=== PATIENT | female | born 1995 | race Caucasian/White ===

== ENCOUNTER 2024-02-28 19:07 | Outpatient (REF) | payer MEDICAID, SELFPAY ==
[2024-02-28 18:07] LABS: Abs Immature Grans 0.04 10^3/uL (0.0-0.06); Absolute Basophil Count 0.02 10^3/uL (0.0-0.2); Absolute Lymphocyte Count 2.29 10^3/uL (1.2-3.4); Absolute Neutrophil Count 5.12 10^3/uL (1.2-6.7); Basophils % 0.2 %; Eosinophils % 8.1 %; HCT 35.3 % (36.0-46.0); HGB 11.4 g/dL (11.2-15.7); Immature Grans % 0.5 %; Lymphocytes % 26.4 %; MCH 29.2 pg (27.0-33.0); MCHC 32.3 % (32.0-36.0); MCV 91 fL (80-95); MPV 11.2 fL (8.0-11.0); Monocytes % 5.8 %; Platelet Count 273 10^3/uL (130-400); RDW 15.1 % (11.7-14.6); WBC 8.67 10^3/uL (4.4-10.8)
--- OUTSIDE RECORDS SUMMARY | 2024-02-29 19:08 | XMS_ITS | Continuity of Care Document ---
Author Name Unknown Organization [facility] Address [address] [place] [address] Care Team Providers Care Detective Captain Name Role Phone Jamila Archer Primary Care Physician Encounter [facility] [id number] Date(s): 12/10/23 - 12/10/23 [place] [facility] [address] [place] [address] Discharge Disposition: Home Allergies, Adverse Reactions, Alerts Substance Reaction Severity Status morphine Unknown Active oxyCODONE 1 Unknown Active rOPINIRole Severe Active 1repotrs feeling loopy Assessment and Plan Future Appointments Appointment Date:12/18/2023 03:30:00 PM Scheduled Provider:Shila Krueger Location:[facility] Appointment Type:Care Coordination Follow-Up 45 [facility] Future Scheduled Tests Laboratory* Basic Metabolic Panel 05/29/23 * CBC w/ Diff 05/01/23 * Comprehensive Metabolic Panel 08/16/23 * Uric Acid 08/16/23 Radiology* XR Chest 2 Views 10/31/23 * XR Spine Lumbosacral 4+ Views 02/27/23 Immunizations Given and Recorded Vaccine Date Status Refusal Reason pneumococcal 15-valent conjugate vaccine 12/08/21 Recorded SARS-CoV-2 (COVID-19) mRNA-1273 vaccine 11/19/20 R ecorded SARS-CoV-2 (COVID-19) mRNA-1273 vaccine 10/22/20 R ecorded influenza virus vaccine, live 06/17/20 Recorded influenza virus vaccine, live 06/13/19 Recorded influenza virus vaccine, live 06/18/18 Recorded tetanus-diphth toxoids (Td) adult/adol 1 03/23/20 Recorded influenza, unspecified formulation 08/08/16 Record ed influenza virus vaccine, inactivated 06/30/15 Gabriel rded influenza virus vaccine, inactivated 06/10/14 Gabriel rded influenza virus vaccine, inactivated 06/16/13 Gabriel rded influenza virus vaccine, inactivated 07/04/12 Gabriel rded influenza virus vaccine, inactivated 06/13/11 Gabriel rded influenza virus vaccine, inactivated 08/26/10 Gabriel rded influenza virus vaccine, inactivated 07/13/09 Gabriel rded influenza virus vaccine, inactivated 07/23/08 Gabriel rded influenza virus vaccine, inactivated 08/08/06 Gabriel rded meningococcal ACWY, unspecified formulat 10/19/14 Recorded HPV, unspecified formulation 11/01/10 Recorded HPV, unspecified formulation 01/25/09 Recorded HPV, unspecified formulation 09/24/08 Recorded HPV, unspecified formulation 07/23/08 Recorded varicella virus vaccine 07/23/08 Recorded varicella virus vaccine 08/30/00 Recorded meningococcal conjugate vaccine 07/23/08 Recorded tetanus/diphth/pertuss (Tdap) adult/adol 07/23/08 Recorded diphtheria/pertussis, acellular/tetanus 04/21/02 R ecorded diphtheria/pertussis, acellular/tetanus 08/26/98 R ecorded diphtheria/pertussis, acellular/tetanus 97 R ecorded diphtheria/pertussis, acellular/tetanus 97 R ecorded diphtheria/pertussis, acellular/tetanus 97 R ecorded poliovirus vaccine, inactivated 04/21/02 Recorded poliovirus vaccine, inactivated 08/26/98 Recorded poliovirus vaccine, inactivated 97 Recorded poliovirus vaccine, inactivated 97 Recorded poliovirus vaccine, inactivated 97 Recorded measles/mumps/rubella virus vaccine 11/28/00 Recor ded measles/mumps/rubella virus vaccine 02/26/98 Recor ded haemophilus b conjugate (HbOC) vaccine 08/26/98 Re corded haemophilus b conjugate (HbOC) vaccine 97 Re corded haemophilus b conjugate (HbOC) vaccine 97 Re corded haemophilus b conjugate (HbOC) vaccine 97 Re corded hepatitis B pediatric vaccine 97 Recorded hepatitis B pediatric vaccine 97 Recorded hepatitis B pediatric vaccine 97 Recorded 1Result Comment: pt tolerated well Medications albuterol 90 mcg/inh aerosol inhaler 1 puffs, Inhale, every 6 hr, PRN as needed for wheezing, # 8.5 g, 3 Refill(s), Pharmacy: [facility] [id number], 149, cm, 11/02/23 8:54:00 EST, Height, 137.5, kg, 10/31/23 23:35:00 EST, Weight Dosing Start Date: 11/07/23 Status: Ordered allopurinol 100 mg oral tablet 100 mg = 1 tab, Oral, Daily, # 90 tab, 0 Refill(s), Pharmacy: [facility] [id number], 149, cm, 10/13/23 16:49:00 EST, Height, 137.15, kg, 10/23/23 9:18:00 EST, Weight Dosing Start Date: 10/23/23 Status: Ordered aspirin 81 mg oral capsule 81 mg = 1 cap, Oral, every 24 hr, # 90 cap, 4 Refill(s), Pharmacy: [facility] [address], 149.86, cm, 11/27/23 8:07:00 EDT, Height, 136.08, kg, 11/27/23 8:15:00 EDT, Weight Dosing Start Date: 11/27/23 Status: Ordered atorvastatin 40 mg oral tablet 40 mg = 1 tab, Oral, Daily, # 90 tab, 3 Refill(s), Pharmacy: [facility] [address], 149, cm, 11/02/23 8:54:00 EST, Height, 137.5, kg, 10/31/23 23:35:00 EST, Weight Dosing Start Date: 11/07/23 Status: Ordered B-D UF III SHORT PEN NEED MIS B-D UF III SHORT PEN NEED MIS, Use one new pen needle for each insulin injection 5 to 7 times per day as directed in case of pump malfunction, Supply, See instructions, # 500 EA, 0 Refill(s), Pharmacy: [facility] [id number] Start Date: 09/08/22 Status: Ordered cetirizine 10 mg oral tablet 1 tab, Oral, BID, # 60 tab, 0 Refill(s), Pharmacy: [facility] [address], 149, cm, 07/08/23 18:54:00 EDT, Height/Length Dosing, 133.2, kg, 07/25/23 10:54:00 EST, Weight Dosing Start Date: 09/12/23 Status: Ordered Dexcom CGM- change q10 days Dexcom CGM- change q10 days, Supply, See instructions, # 1 EA, 0 Refill(s) Start Date: 10/31/23 Status: Ordered elderberry 350 mg, Oral, Daily, 0 Refill(s) Start Date: 07/08/23 Status: Ordered Glucagon Emergency Kit for Low Blood Sugar See Instructions, PRN low blood sugar, follow instructions per kit, 0 Refill(s) Start Date: 03/24/22 Status: Ordered HumaLOG KwikPen 100 units/mL injectable solution 40 units =, Subcutaneous, every morning, With breakfast if BG is 230 or higher, # 15 mL, 2 Refill(s), Pharmacy: [id number], 149, cm, 11/02/23 8:54:00 EST, Height, 137.5, kg, 10/31/23 23:35:00 EST, Weight Dosing Start Date: 11/07/23 Status: Ordered HumuLIN R KwikPen (Concentrated) 500 units/mL subcutaneous solution See Instructions, 230 units of humilin at breakfast 150 Units of humilin at lunch 100 Units of humilin at dinner, decrease dose and titrate as necessary as half dose of insulin was given in hospital and was still hypoglycemic Start Date: 03/02/22 Status: Ordered levothyroxine 250 mcg =, Oral, Daily, 0 Refill(s) Start Date: 07/08/23 Status: Ordered lisinopril 5 mg oral tablet 5 mg = 1 tab, Oral, every night at bedtime, # 90 tab, 0 Refill(s) Start Date: 10/15/23 Status: Ordered Mounjaro 2.5 mg/0.5 mL subcutaneous solution 2.5 mg =, Subcutaneous, every week, rotate injection sites, # 4 EA, 0 Refill(s), Pharmacy: [facility], 149, cm, 11/02/23 8:54:00 EST, Height, 137.5, kg, 10/31/23 23:35:00 EST, Weight Dosing Start Date: 11/07/23 Status: Ordered Mounjaro 2.5 mg/0.5 mL subcutaneous solution 2.5 mg =, Subcutaneous, every week, rotate injection sites, # 4 EA, 0 Refill(s), Pharmacy: [id number], 149, cm, 10/13/23 16:49:00 EST, Height, 133, kg, 10/13/23 16:54:00 EST, Weight Dosing Start Date: 10/15/23 Status: Ordered ONETOUCH VERIO FLEX KIT ONETOUCH VERIO FLEX KIT, [address] [facility]. (non drug: combo route) route 4 times daily. Start Date: 03/02/22 Status: Ordered ONETOUCH VERIO MARLENE ONETOUCH VERIO MARLENE, Test blood glucose withone new test strip 4 times daily Start Date: 03/02/22 Status: Ordered Portable Back Pack O2 Tank Portable Back Pack O2 Tank, 2.5L pulse dose, Supply, See instructions, # 1 EA, 0 Refill(s) Start Date: 11/07/23 Status: Ordered Probiotic 10 Ultra Strength 0 Refill(s) Start Date: 11/27/23 Status: Ordered Tamiflu 75 mg oral capsule 75 mg = 1 cap, Oral, BID, # 6 cap, 0 Refill(s), Pharmacy: [id number], 149, cm, 11/02/23 8:54:00 EST, Height, 137.5, kg, 10/31/23 23:35:00 EST, Weight Dosing Start Date: 11/02/23 Stop Date: 11/05/23 Status: Ordered Toprol-XL 25 mg oral tablet, extended release 25 mg = 1 tab, Oral, Daily, # 90 tab, 4 Refill(s), Pharmacy: [facility], 149.86, cm, 11/27/23 8:07:00 EDT, Height, 136.08, kg, 11/27/23 8:15:00 EDT, Weight Dosing Start Date: 11/27/23 Status: Ordered torsemide 20 mg oral tablet 3 tab, Oral, BID, TWICE DAIY., # 180 tab, 3 Refill(s), Pharmacy: [id number], 149, cm, 07/08/23 18:54:00 EDT, Height/Length Dosing, 133.2, kg, 07/25/23 10:54:00 EST, Weight Dosing Start Date: 08/06/23 Status: Ordered Vitamin C 250 mg oral tablet 0 Refill(s) Start Date: 11/27/23 Status: Ordered [facility] Probiotic [facility] Probiotic, 1, Oral, Daily, 0 Refill(s) Start Date: 10/31/23 Status: Ordered Problem List Condition Confirmation Course Effective Dates Status H ealth Status Informant DEAN (acute kidney injury) Confirmed Active Aortic stenosis Confirmed Active Asthma Confirmed Active Autoimmune thyroiditis Confirmed Active Bilateral lower extremity edema Confirmed Active Clostridioides difficile 1 Confirmed 07/09/23 Active C. difficile colitis Confirmed Active C. difficile diarrhea Confirmed Active Constipation Confirmed Active Developmental disorder Confirmed Active Erythroderma Confirmed Active Gout Confirmed Active HLD (hyperlipidemia) Confirmed Active HTN (hypertension) Confirmed Active Hypothyroidism Confirmed Active 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 Intermenstrual bleeding - irregular Confirmed Active Irregular sleep-wake pattern Confirmed Active Localized edema Confirmed Active Mediastinal adenopathy Confirmed Active Morbid obesity Confirmed Active Obstructive sleep apnea syndrome 2 Confirmed Active HOLLIE treated with BiPAP Confirmed Active Palpitations Confirmed Active Periodic limb movement disorder Confirmed Active Peripheral edema Confirmed Active Pneumonia Confirmed Active Hospital discharge follow-up Confirmed Active Pulmonary hypertension Confirmed Active Tachycardia Confirmed Active Tension-type headache Confirmed Active Thyroid nodule Confirmed Active Type 1 diabetes Confirmed Active 1Problem added by Rule (LH_IC_MDRO_CDI) following Clostridium Difficile from Stool collected on 06-JUL-2023 17:48:00 EDT tested positive for CDI. 2BiPAP Imax 25 cm, Luis M 16 cm, PS 6 cm. [employer] Procedures Procedure Date Related Diagnosis Body Site Status Due 10/2025 1 10/30/22 Completed ORIF - Open reduction and in ternal fixation of fracture 2 12/21/20 Completed Adenoidectomy 3 09/09/13 Completed Tonsillectomy 4 09/09/03 Completed 1Pap Due - 10/2025 10/31/22 - Negative 2left elbow fracture dislocation 3as part of tonsillectomy 2003; repeat adenoidectomy 2013 4with adenoidectomy Social History Social History Type Response Tobacco Never tobacco user T obacco Use:. Sex Female Patient Care team information Care Team Personnel Name: Jamila Archer MD Position: Physician Member Role: Informed Provider Address: Address: [address] [place] [address] [place] [address] [place] Name: Shila Krueger Position: Ambulatory - RN/LEGAL SERVICES MANAGER ([facility]) Member Role: Artillery Meteorological Man Care Team Related Persons Name: BISHOP EMILIO Address: Home [address] [place], [phone] Name: ELLIS GRAMAJO Address: Home [address] [place], [phone]
--- OUTSIDE RECORDS SUMMARY | 2024-02-29 19:08 | XMS_ITS | Continuity of Care Document ---
Author Name Unknown Organization [facility] Address [address] [place] [address] Care Team Providers Care Road Machine Operator Name Role Phone Jamila Archer Primary Care Physician [phone] Encounter [id number] Date(s): 10/31/22 - 10/31/[address] [address] Discharge Disposition: Home or Self Care Attending Physician: Yuliya Villalobos CNM Admitting Physician: Yuliya Villalobos CNM Referring Physician: Yuliya Villalobos CNM Allergies, Adverse Reactions, Alerts Substance Reaction Severity Status morphine Unknown Active rOPINIRole Severe Active Assessment and Plan Future Appointments Diagnostic Tests Pending * PAP Test [facility] 10/31/22 * Chlamydia/N. gonorrhoeae ThinPrep [facility] 10/31/22 Future Scheduled Tests Laboratory* SARS-CoV-2 (COVID-19)/Flu/RSV ([facility]) 08/21/22 Radiology* US Pelvic Non OB Comp w/ Transvag 10/31/22 Immunizations Given and Recorded Vaccine Date Status [...] Recorded 1Result Comment: pt tolerated well Medications atorvastatin 40 mg oral tablet 40 mg = 1 tab, Oral, Daily Start Date: 03/02/22 Status: Ordered B-D UF III SHORT PEN NEED MIS B-D UF III SHORT PEN NEED MIS, Use one new pen needle for each insulin injection 5 to 7 times per day as directed in case of pump malfunction, Supply, See instructions, # 500 EA, 0 Refill(s), Pharmacy: [facility] Start Date: 09/08/22 Status: Ordered ergocalciferol 1.25 mg (50,000 intl units) oral capsule 50,000 IntlUnit = 1 cap, Oral, every week Start Date: 03/02/22 Status: Ordered fenofibrate 30 mg oral capsule 30 mg = 1 cap, Oral, Daily, # 90 cap, 3 Refill(s), Pharmacy: [facility], 150, cm, 10/27/22 6:33:00 EST, Height/Length Dosing, 127, kg, 10/27/22 6:33:00 EST, Weight Dosing Start Date: 10/27/22 Status: Ordered fenofibrate 40 mg oral tablet 40 mg = 1 tab, Oral, Daily, # 30 tab, 0 Refill(s), Pharmacy: [facility] [id number], 150, cm, 10/27/22 6:33:00 EST, Height/Length Dosing, 127, kg, 10/27/22 6:33:00 EST, Weight Dosing Start Date: 10/27/22 Status: Ordered Glucagon Emergency Kit for Low Blood Sugar See Instructions, PRN low blood sugar, follow instructions per kit, 0 Refill(s) Start Date: 03/24/22 Status: Ordered HumuLIN R KwikPen (Concentrated) 500 units/mL subcutaneous solution 200 units =, Intradermal, AC, correction facter of 50 units Start Date: 03/02/22 Status: Ordered levothyroxine 100 mcg (0.1 mg) oral tablet 100 mcg = 1 tab, Oral, Daily, Take one tablet by mouth with water a half hour before eating or taking any other medication. Take with 125 mcg dose., # 90 tab, 3 Refill(s), Pharmacy: [facility], 150, cm, 10/27/22 6:33:00 EST, Height/Length D... Start Date: 10/27/22 Status: Ordered levothyroxine 125 mcg (0.125 mg) oral tablet 125 mcg = 1 tab, Oral, Daily, Take one tablet by mouth with water a half hour before eating or taking any other medication. Take with 100 mcg dose., # 90 tab, 3 Refill(s), Pharmacy: [id number], 150, cm, 10/27/22 6:33:00 EST, Height/Length D... Start Date: 10/27/22 Status: Ordered lisinopril 10 mg oral tablet 10 mg = 1 tab, Oral, Daily, for 90 days- dose change 10/20/2021, # 90 tab, 3 Refill(s), Pharmacy: [id number], 150, cm, 08/09/22 1:15:00 EST, Height/Length Dosing, 127.01, kg, 08/09/22 1:15:00 EST, Weight Dosing Start Date: 10/05/22 Status: Ordered multivitamin adult, oral tablet 1 tab, Oral, Daily, # 90 tab, 0 Refill(s), other reason (Rx) Start Date: 03/24/22 Status: Ordered ONETOUCH VERIO FLEX KIT ONETOUCH VERIO FLEX KIT, 1 each by [facility]. (non drug: combo route) route 4 times daily. Start Date: 03/02/22 Status: Ordered ONETOUCH VERIO MARLENE ONETOUCH VERIO MARLENE, Test blood glucose withone new test strip 4 times daily Start Date: 03/02/22 Status: Ordered torsemide 20 mg oral tablet 1 tab, Oral, TID, PRN IF NEEDED, # 90 tab, 1 Refill(s), Pharmacy: [id number], 150, cm, 08/09/22 1:15:00 EST, Height/Length Dosing, 127.01, kg, 08/09/22 1:15:00 EST, Weight Dosing Start Date: 09/04/22 Status: Ordered Trulicity Pen 1.5 mg/0.5 mL subcutaneous solution every week Start Date: 03/02/22 Status: Ordered Vitamin C 500 mg oral tablet 500 mg = 1 tab, Oral, Daily, # 30 tab, 0 Refill(s), other reason (Rx) Start Date: 03/24/22 Status: Ordered ZyrTEC-D 5 mg-120 mg oral tablet, extended release 1 tab, Oral, every 24 hr, # 30 tab, 0 Refill(s), Pharmacy: [id number], 150, cm, 226:18:00 EDT, Height/Length Dosing, 129, kg, 03/14/22 6:18:00 EDT, Weight Dosing Start Date: 03/23/22 Status: Ordered Problem List Condition Confirmation Course Effective Dates Status H ealth Status Informant Adult health examination Confirmed Active Autoimmune thyroiditis Confirmed Active Developmental disorder Confirmed Active Diabetic ketoacidosis Confirmed Active Erythroderma Confirmed Active Hyperlipidemia Confirmed Active Hypertensive disorder Confirmed Active 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 Intermenstrual bleeding - irregular Confirmed Active Irregular sleep-wake pattern Confirmed Active Kidney disease Confirmed Active Localized edema Confirmed Active Obesity Confirmed Active Obstructive sleep apnea syndrome Confirmed Active Severe obesity Confirmed Active Tachycardia Confirmed Active Tension-type headache Confirmed Active Procedures Procedure Date Related Diagnosis Body Site Status ORIF - Open reduction and in ternal fixation of fracture 1 12/21/20 Completed Adenoidectomy 2 09/09/13 Completed Tonsillectomy 3 09/09/03 Completed 1left elbow fracture dislocation 2as part of tonsillectomy 2003; repeat adenoidectomy 2013 3with adenoidectomy Social History Social History Type Response Tobacco Never tobacco user T obacco Use:. Sex Female Patient Care team information Care Team Personnel Name: Jamila Archer MD Position: Physician Member Role: Informed Provider Address: Address: [place] [facility] [place], [place] [id number] [place] [address] Name: Shila Krueger Position: Ambulatory - RN/INSURANCE ACCOUNT EXECUTIVE ([facility]) Member Role: Restaurant Manager Care Team Related Persons Name: EMILIO PATHAK Address: Home [address] [place], [phone] Name: ELLIS GRAMAJO Address: Home [address] [place], [phone]
--- OUTSIDE RECORDS SUMMARY | 2024-02-29 19:08 | XMS_ITS | Continuity of Care Document ---
Author Name Unknown Organization [facility] Address [address] [place] [address] Care Team Providers Care Forest Economist Name Role Phone Jamila Archer Primary Care Physician [phone] Encounter [facility] Date(s): 11/27/23 - 11/27/23 [facility] [address] [place] [address] Encounter Diagnosis Tachycardia(Discharge Diagnosis) - 11/27/23 Hyperlipidemia(Discharge Diagnosis) - 11/27/23 Hypertension(Discharge Diagnosis) - 11/27/23 Type 2 myocardial infarction(Discharge Diagnosis) - 11/27/23 Discharge Disposition: Home or Self Care Attending Physician: Jaida Lamb NP Allergies, Adverse Reactions, Alerts Substance Reaction Severity Status morphine Unknown Active oxyCODONE 1 Unknown Active rOPINIRole Severe Active 1repotrs feeling loopy Assessment and Plan Extracted from: Title:Cardiology Clinic - Office Visit Note Auth or:Jaida Lamb NP Date:11/27/23 Hyperlipidemia??E78.5 ?? Hypertension??I10 Actions: COMPLETED - 99459 Office/Outpatient Visit - Established Patient, Level 3 (20-29 min)., 11/27/23 8:01:00 EDT, Hypertension FUTURE - Follow-Up Appointment Request NCTY, *Est. 02/27/24 +/- 21 days, Future Order, In Approximately, [facility] ?? Tachycardia??R00.0 ?? Type 2 myocardial infarction??I21.A1 Actions: ORDERED - aspirin, 81 mg = 1 cap, Oral, every 24 hr, # 90 cap, 4 Refill(s), Pharmacy: [facility], 149.86, cm, 11/27/23 8:07:00 EDT, Height, 136.08, kg, 11/27/23 8:15:00 EDT, Weight Dosing ORDERED - metoprolol, 25 mg = 1 tab, Oral, Daily, # 90 tab, 4 Refill(s), Pharmacy: [facility], 149.86, cm, 11/27/23 8:07:00 EDT, Height, 136.08, kg, 11/27/23 8:15:00 EDT, Weight Dosing ?? Additional Actions: COMPLETED - NM Myocardial Rest Stress 2 Day Protocol, 11/19/23 10:38:00 EDT, Routine, Reason: chest pain, Lexiscan, Transport Mode: Ambulatory, Chest pain, Exam to be performed outside organization? Future Appointments Appointment Date:12/04/2023 04:15:00 PM Scheduled Provider:Shila Krueger Location:[facility], [place], operated by [facility] Appointment Type:Care Coordination Follow-Up 60 ([facility]CTY) Appointment Date:12/18/2023 03:30:00 PM Scheduled Provider:Shila Krueger Location:[facility], [place], operated by [facility] Appointment Type:Care Coordination Follow-Up 45 (NCTY) Future Scheduled Tests Laboratory* Basic Metabolic Panel [...] wheezing, # 8.5 g, 3 Refill(s), Pharmacy: [facility], 149, cm, 11/02/23 8:54:00 EST, Height, 137.5, kg, 10/31/23 23:35:00 EST, Weight Dosing Start Date: 11/07/23 Status: Ordered allopurinol 100 mg oral tablet 100 mg = 1 tab, Oral, Daily, # 90 tab, 0 Refill(s), Pharmacy: [place] [address], 149, cm, 10/13/23 16:49:00 EST, Height, 137.15, kg, 10/23/23 9:18:00 EST, Weight Dosing Start Date: 10/23/23 Status: Ordered aspirin 81 mg oral capsule 81 mg = 1 cap, Oral, every 24 hr, # 90 cap, 4 Refill(s), Pharmacy: [place] [address], 149.86, cm, 11/27/23 8:07:00 EDT, Height, 136.08, kg, 11/27/23 8:15:00 EDT, Weight Dosing Start Date: 11/27/23 Status: Ordered atorvastatin 40 mg oral tablet 40 mg = 1 tab, Oral, Daily, # 90 tab, 3 Refill(s), Pharmacy: [place] [address], 149, cm, 11/02/23 8:54:00 EST, Height, 137.5, kg, 10/31/23 23:35:00 EST, Weight Dosing Start Date: 11/07/23 Status: Ordered B-D UF III SHORT PEN NEED MIS B-D UF III SHORT PEN NEED MIS, Use one new pen needle for each insulin injection 5 to 7 times per day as directed in case of pump malfunction, Supply, See instructions, # 500 EA, 0 Refill(s), Pharmacy: [facility] 415 Start Date: 09/08/22 Status: Ordered cetirizine 10 mg oral tablet 1 tab, Oral, BID, # 60 tab, 0 Refill(s), Pharmacy: [place] [address], 149, cm, 07/08/23 18:54:00 EDT, Height/Length Dosing, [...] higher, # 15 mL, 2 Refill(s), Pharmacy: [facility], 149, cm, 11/02/23 8:54:00 [...] sites, # 4 EA, 0 Refill(s), Pharmacy: [facility], 149, cm, 11/02/23 8:54:00 EST, Height, 137.5, kg, 10/31/23 23:35:00 EST, Weight Dosing Start Date: 11/07/23 Status: Ordered Mounjaro 2.5 mg/0.5 mL subcutaneous solution 2.5 mg =, Subcutaneous, every week, rotate injection sites, # 4 EA, 0 Refill(s), Pharmacy: [facility], 149, cm, 10/13/23 16:49:00 EST, Height, 133, kg, 10/13/23 16:54:00 EST, Weight Dosing Start Date: 10/15/23 Status: Ordered ONETOUCH VERIO FLEX KIT ONETOUCH VERIO FLEX KIT, 1 each by [facility]. (non drug: combo route) route 4 times [...] BID, # 6 cap, 0 Refill(s), Pharmacy: [facility], 149, cm, 11/02/23 8:54:00 EST, Height, 137.5, kg, 10/31/23 23:35:00 EST, Weight Dosing Start Date: 11/02/23 Stop Date: 11/05/23 Status: Ordered Toprol-XL 25 mg oral tablet, extended release 25 mg = 1 tab, Oral, Daily, # 90 tab, 4 Refill(s), Pharmacy: [facility], 149.86, cm, 11/27/23 8:07:00 EDT, Height, 136.08, kg, 11/27/23 8:15:00 EDT, Weight Dosing Start Date: 11/27/23 Status: Ordered torsemide 20 mg oral tablet 3 tab, Oral, BID, TWICE DAIY., # 180 tab, 3 Refill(s), Pharmacy: [facility], 149, cm, 07/08/23 18:54:00 EDT, Height/Length Dosing, 133.2, kg, 07/25/23 10:54:00 EST, Weight Dosing Start Date: 08/06/23 Status: Ordered Vitamin C 250 mg oral tablet 0 Refill(s) Start Date: 11/27/23 Status: Ordered [facility], [facility], Oral, Daily, 0 Refill(s) Start [...] obesity Confirmed Active Obstructive sleep apnea syndrome Confirmed Active HOLLIE treated with BiPAP Confirmed Active Palpitations Confirmed Active Peripheral edema Confirmed Active Pneumonia Confirmed Active Hospital discharge follow-up Confirmed Active Pulmonary hypertension Confirmed Active Tachycardia Confirmed Active Tension-type headache Confirmed Active Thyroid nodule Confirmed Active Type 1 diabetes Confirmed Active 1Problem added by Rule (LH_IC_MDRO_CDI) following Clostridium Difficile from Stool collected on 06-JUL-2023 17:48:00 EDT tested positive for CDI. Procedures Procedure Date Related Diagnosis Body Site Status Due 10/2025 1 10/30/22 Completed ORIF - Open reduction and in ternal fixation of fracture 2 12/21/20 Completed Adenoidectomy 3 09/09/13 Completed Tonsillectomy 4 09/09/03 Completed 1Pap Due - 10/2025 10/31/22 - Negative 2left elbow fracture dislocation 3as part of tonsillectomy 2003; repeat adenoidectomy 2013 4with adenoidectomy Vital Signs Most recent to oldest [Reference Range]: 1 Peripheral Pulse Rate [60-100 bpm] 101 b pm *HI* (11/27/23 8:07 AM) Blood Pressure [90-140/60-90 mmHg] 132/7 4mmHg (11/27/23 8:07 AM) Mean Arterial Pressure, Cuff [65-140 mmH g] 93 mmHg (11/27/23 8:07 AM) Weight 136.08 kg (11/27/23 8:07 AM) Weight Measured (lbs) 300.005 lb (11/27/23 8:07 AM) Weight Dosing 136.080 kg (11/27/23 8:07 AM) Height 149.86 cm (11/27/23 8:07 AM) Height/Length Measured (inches) 59 inch (11/27/23 8:07 AM) BSA Measured 2.38 m2 (11/27/23 8:07 AM) Body Mass Index 60.59 kg/m2 (11/27/23 8:07 AM) Social History Social History Type Response Tobacco Never tobacco user T obacco Use:. Sex Female Hospital Discharge Instructions Patient Education 10/09/2023 09:07:29 Nuclear Med Medication (Lexiscan) Stress Test 1 (NCRLAFFOON) (NCRLAFFOON) Missing Image - the embedded image is not supportedCardiology Nuclear Medication Stress Test Patient Information Lexiscan For scheduling concerns, please call . For any other questions, please call the Cardiology office at . Appointment Date: Sunday Rest Portion: Diagnostic Imaging (1st floor) TBD day of test Stress Portion: Cardiac Stress Lab (2nd floor) 9:45 am, go to Cardiology to check in please One day protocol Two day protocol (see bottom of pg 3) A nuclear stress test uses radioactive tracer and an imaging machine to create pictures showing theblood flow to your heart. The test measures blood flow while you are at rest and are exerting yourself, showing areas with poor blood flow or damage in your heart. A Nuclear Stress Test may have been ordered for you to: ??? determine or diagnose Coronary Artery Disease ??? guide treatment of a heart disorder There are some risks and/or reactions involved with this test, which may include: abnormal heart rhythms; dizziness or chest pain during the exercise portion of the test; or low blood pressure. To prepare for the test: ??? Tell your doctor if you think you might be before undergoing this scan due to radiation exposure, which is dangerous to the fetus. ??? Nothing to eat or drink (NPO) after midnight the night before the test (Sips of water with medications is okay ??? this applies to both one and two day protocols). ??? You may drink fruit juices, white milk, or water, but DO NOT consume caffeine for 24 hours (daybefore and day of) prior to the test (including regular coffee and decaf, Anacin, Excedrin, Keep Alert, Midol, Monster, RedBull, 5-hour Energy, Starbucks Double Shot, Nos, etc.). ??? DO NOT smoke for 4 hours prior to the nuclear stress test. DO NOT use a Nicotine Patch the day of test. Glaucoma Patients: Do not take your Prescription Eye Drops on the morning of the test. (Please bring your medications with you to take immediately after the test) Diabetics: If you are on insulin, please take only half of your usual morning dose. (If you are on an insulin pump that cannot be adjusted, please inform the civil cadd technician when you arrive to your appointment.) If you are on an oral diabetic medication, such as Metformin, please hold your usual morning dose. Additional Instructions: (Please bring your medications with you to take immediately after the test) Medications: Please take ALL of your medications except Theophylline Derivatives, Nitrates, and Aggrenox. Do not take these Theophylline Derivatives 24 hours (day before and day of) prior to your test: (Please bring your medications with you to take immediately after the test) Slo-Bid Gyrocaps Slo-Phyllin Slo-Phyllin 15 Jeffry-24 Jeffry-dur Theolair Uniphil Do not take these Nitrates 24 hours (day before and day of) prior to your test: (Please bring your medications with you to take Immediately after the test) lsosorbide Dinitrate - (lsordil) lsosorbide Mononitrate - (lmdur, ISMO) Do not take the following other medications 24 hours (day before and day of) prior to your test: (Please bring your medications with you to take immediately after the test) Persantine (Dipyridamole) Aggrenox Day of the test: ??? Plan to spend about 3 - 4 hours at the hospital for this test. ??? Please wear comfortable, loose, clothing and walking shoes. ??? Don't apply oil, lotion, or cream to your skin on the day of your nuclear stress test. ??? Arrive at Diagnostic Imaging (Radiology Dept 1st floor) to check in, you are pre-registered forthis test. A Functional Analyst will insert an intravenous (IV) line into your arm and inject a radioactive tracer (radiopharmaceutical or radiotracer). It will take 20-40 minutes for yourheart cells to absorb the radiotracer. You will wait in Diagnostic Imaging. ??? Following the first injection, you will be placed under a gamma camera and pictures of your heart will be recorded. This camera does not produce any radiation. It will be placed close to your chest and pictures will be taken for approximately 15 minutes. This portion of the test is called the rest study. ??? After your rest study, you will check in at the Cardiac Stress Lab on the 2nd floor of [facility]. Our trained staff will place EKG leads on your chest. The EKG will be used to constantly monitor your heart during your stress test. Depending on the tests ordered for you, this could be the same day or over the course of two days. ??? In the cardiac Stress Lab, our trained staff will place EKG leads on your chest and initiate the exercise, or stress, portion of this test. The EKG will be used to constantly monitor your heart during your stress test. Your Functional Analyst will inject a medication that helps to dilate, or relax, your blood vessels. During the test you will be constantly monitored. Possible side effects may be like those caused by exercise, such as flushing, shortness of breath or headache. ??? During the stress phase, the Functional Analyst will give you another injection of radiotracer. ??? After the stress portion of the test, you will be escorted to Diagnostic Imaging for the secondsession of Imaging. You will be provided a food voucher to use in the cafeteria to eat a snack after the injection and prior to the imaging. ??? A second set of images will be taken, after which time, you may leave. After the Test ??? You may resume all your medications. You may eat, drink, and return to your normal routine. Your doctor will receive the results of your test within 2-3 days of the study. ??? Please follow-up with your doctor to discuss your nuclear stress test results. The results helpto determine which parts of the heart are receiving normal blood flow and which are not, and if there has been damage to part of the heart in the past. One day protocol ??? Please follow the guidelines listed above! Two day protocol ??? Day 1: Stress Portion ??? Please follow the guidelines listed above! Day 2: Rest Portion ??? Do not eat anything after midnight prior to the test, and nothing to drink other than what you need to swallow your medications. ??? Do not restart your Nitrate medications until the rest portion (day 2) is complete. ??? No nicotine for 4hrs prior to the start of the rest portion ??? If you take theophylline-containing drugs or Aggrenox, these are OK to take again. If you have any questions, please contact the [facility] Cardiology office at . Physician Outpatient Note * Jaida Lamb CABLE TV INSTALLER: PERFORM Event Display: Office Clinic Note Physician Authored Date: [id number] DHARA MIRAMONTES :1995 Age:28 years Sex:Female Visit Date:11/27/2023 Primary Care Physician: Jamila Archer MD History of Present Illness Cardiac Problems: 1. Edema-Torsemide 60mg BID, atorvastatin 40mg, chlorthalidone 25mg, lisinopril 5mg, 2. Diabetes Mellitus 3. Obesity 4. HOLLIE with BiPAP 5. Tachycardia 6. Mild aortic stenosis, with mean gradient of 9 on echocardiogram November 2022 7. Pulmonary hypertension, with RV systolic pressure November 2022 of 45mmHg, likely attributable to HOLLIE. ?? This is a 28-year-old female that I last saw in the office on 05/29/2023??for??edema,??and chest pain.?? We had added chlorthalidone??to her medication regimen that included torsemide??60 mg??twicedaily.?? She did have an ER visit??for hypokalemia and chest pain??where she started a potassium chloride supplement and a magnesium supplement.?? She has not been able to cut down on her fluid intake??due to dry mouth. ??She??was reporting at this last visit a 5 out of 10 nonradiating burning in her central chest??that occurs 3 times a day, it started about a month ago??when her grandfather .?? During her ER visit she was told that her joints were inflamed.?? It seemed like her torsemide was at a therapeutic dose??and we spoke about decreasing her fluid intake??again.?? I ordered??a stress test??to work-up her chest pain. Lexiscan showed :Likely normal myocardial perfusion, with no compelling evidence of ischemia or prior infarct.??Normal LV function with normal wall motion and ejection fraction greater than 60%. Image quality limits sensitivity and specificity. ??This is particularly notable in the distal inferior wall which appears to have significant diaphragmatic attenuation artifact. ?? She states that last month she had the flu and pneumonia and was hospitalized for both. ??She is feeling a lot better now. ??She is off oxygen as of yesterday, she was??initially on??oxygen??when shewent home from the hospital because she was??reading at 83%, she is now at 95% at home she states.?? She reports that she was??tachycardic with the pneumonia but is feeling much better now.?? Overallshe denies palpitations??but still has a 6 out of 10??tightness on her right side near her right shoulder??that occurs with exercise or lifting every other week. ??This is a sharp??pain that last forabout 2 hours??that does make her??short of breath but does not radiate??or cause diaphoresis, nausea??or syncope??she states??it mainly catches me off guard, it is more??in my muscle. ?? She does have an appointment with pulmonology at [facility] this Sunday. ??She denies??syncope, orthopnea, PND, and edema. ??She is still on 60 mg of torsemide twice daily and this is working well for hershe states.?? She takes 1 dose at 10 AM and the other dose between 4 and 5 PM. ??She has an urge tourinate within 30 minutes, it last for about 4 hours, and she denies nocturia. ??She has been working on cutting down her fluid intake.?? She is still drinking??3 of the 16 ounce drake, 3??coffees at 16 ounces and sometimes Gatorade 0.?? She had Jongla food this past Sunday??but typically stays away from??high sodium content foods, she is doing a new diet that is high??protein and low carbs.?? S he denies??edema??in general, she will occasionally have mild??if she does not??walk that day??but overall she is doing well. ?? After her 2 illnesses she is getting back into exercise again where she once was, she is walkingdaily for about 10 minutes at a time,??with this exercise she denies signs of ischemia such as chest pain or shortness of breath.?? She states that she is??looking to get back into walking and [place] where she was initially. Review of Systems A complete review of systems is negative other than as noted in the history of present illness. Physical Exam Vitals & Measurements HR:??101??(Peripheral)?? BP:??132/74?? SpO2:??94%?? HT:??149.86??cm?? WT:??136.08??kg?? BMI:??60.59?? BSA:??2.38?? HEENT: Normocephalic, atraumatic Respirations: Clear to auscultation bilaterally with no wheezes rubs or rhonchi Cardiac: Regular rate and rhythm, normal S1, S2, no murmurs gallops or rubs Abdomen: Nontender nondistended normal active bowel sounds Extremities: 2+ dorsalis pedis pulses bilaterally with no significant edema Medical Decision Making Data Review: 01/02/2023: BUN 35, CR 0.90, K+ 5.0 01/20/2023: EKG: Sinus rhythm at 92bpm, borderline prolonged QT interval at QTcB at 389. Axes and intervals within normal limits. 03/22/2023: BUN: 72, CR 1.84, K+ 2.8 04/04/2023 to 04/13/2023.?? Mobile cardiac telemetry.?? Baseline sample showed sinus rhythm with a heart rate of 99.1 bpm.?? There were 0 critical, 0 serious, and 2 stable events that occurred.?? Eventsoccurred with sinus rhythm and sinus tachycardia with lead loss. 05/29/2023:EKG: Sinus rhythm at 96bpm. [place] and intervals within normal limits. 11/20/2023 Lexiscan stress test:Likely normal myocardial perfusion, with no compelling evidence of ischemia or prior infarct.??Normal LV function with normal wall motion and ejection fraction greater than 60%. Image quality limits sensitivity and specificity. ??This is particularly notable in the distal inferior wall which appears to have significant diaphragmatic attenuation artifact. 11/27/2023: EKG:Sinus tachycardia at 102 bpm, axes and intervals within normal limits ?? 28-year-old female with Edema ? Edema:??She has no significant edema on exam today and has not noticed any at home either. ??She isdoing well on the 60 mg??of torsemide twice daily. ??This sounds like it is a therapeutic dose. ??Idid discuss again with her??decreasing high sodium foods as well as decreasing her fluid intake??explaining that we do not want to replace everything that we are removing??with the torsemide.?? She is quite happy with the torsemide so no change at this time. ?? Hypokalemia: This has resolved. ??Continue to monitor. ? Chest pain: We went over her recent Lexiscan stress test today at length, which was reassuring and negative for ischemia or prior infarct.?? She is still reporting??sharp tightness in her right??chest shoulder area??when she lifts things that are really heavy every other week??that last for a couple of hours.?? She feels this is more??muscular pain??and declines??starting any new medications at this point. ??I did discuss with her??that??the Lexiscan stress test are not 100%??effective??but it does tell us??a likely risk??of having a cardiac event, which looks like??she has a low risk at this time given the results of her test.?? However, she did have elevated troponin??in the ER on October 12, 2023 and was ruled in for a type II myocardial infarction. ??I explained this to her, and she should be on a more cardioprotective medication regimen??which includes??81 mg of aspirin as well as??metoprolol.?? She states that??she will start??with the 81 mg of aspirin??a day but would like to hold off on the metoprolol. I encouraged her to be start the cardioprotective medication regimen of ASA, beta juan and high dose statin and we ended up moving forward with this prescription and Icalled Toprol XL 25mg and Asa 81mg in for her today. I encouraged her to be seen in the emergency room for any chest pain or worsening symptoms moving forward.?? If she is still symptomatic on these medications then we should move forward with potentially going down a heart catheterization route,??for??Lexiscan's are not always 100% effective.?? I will see her back in 3 months to check in on how she is doing, she knows to call in with any questions or concerns in the meantime.?? It was a pleasure to see Dhara. Clinic Assessment/Plan Hyperlipidemia??E78.5 ?? Hypertension??I10 Actions: COMPLETED - 93042 Office/Outpatient Visit - Established Patient, Level 3 (20-29 min)., 11/27/23 8:01:00 EDT, Hypertension FUTURE - Follow-Up Appointment Request NCTY, *Est. 02/27/24 +/- 21 days, Future Order, In [facility], [facility] ?? Tachycardia??R00.0 ?? Type 2 myocardial infarction??I21.A1 Actions: ORDERED - aspirin, 81 mg = 1 cap, Oral, every 24 hr, # 90 cap, 4 Refill(s), Pharmacy: [facility], 149.86, cm, 11/27/23 8:07:00 EDT, Height, 136.08, kg, 11/27/23 8:15:00 EDT, Weight Dosing ORDERED - metoprolol, 25 mg = 1 tab, Oral, Daily, # 90 tab, 4 Refill(s), Pharmacy: [id number], 149.86, cm, 11/27/23 8:07:00 EDT, Height, 136.08, kg, 11/27/23 8:15:00 EDT, Weight Dosing ?? Additional Actions: COMPLETED - NM Myocardial Rest Stress 2 Day Protocol, 11/19/23 10:38:00 EDT, Routine, Reason: chestpain, Lexiscan, Transport Mode: Ambulatory, Chest pain, Exam to be performed outside organization? Patient Education Nuclear Med Medication (Lexiscan) Stress Test 1 (NCRLAFFOON) (NCRLAFFOON) Problem List/Past Medical History Ongoing DEAN (acute kidney injury) Aortic stenosis Asthma Autoimmune thyroiditis Bilateral lower extremity edema C. difficile colitis C. difficile diarrhea Clostridioides difficile Constipation Developmental disorder Erythroderma Gout HLD (hyperlipidemia) Hospital discharge follow-up HTN (hypertension) Hypothyroidism Idiopathic sleep related non-obstructive alveolar hypoventilation Intermenstrual bleeding - irregular Irregular sleep-wake pattern Localized edema Mediastinal adenopathy Morbid obesity Obstructive sleep apnea syndrome HOLLIE treated with BiPAP Palpitations Peripheral edema Pneumonia Pulmonary hypertension Tachycardia Tension-type headache Thyroid nodule Type 1 diabetes Historical No qualifying data Procedure/Surgical History ???Due 10/2025 (10/31/2022)???ORIF - Open reduction and internal fixation of fracture (12/22/2020)???Adenoidectomy (09/10/2013)???Tonsillectomy (09/10/2003) Medications What How Much When Why Instructions New aspirin (aspirin 81 mg oral capsule) 1 Capsules Oral (given by mouth) Every 24 hours Type 2 myocardial infarction Refills: 4 Pickup at [facility] New metoprolol (Toprol-XL 25 mg oral tablet, extended release) 1 tab Oral (given by mouth) Every day Type 2 myocardial infarction Refills: 4 Pickup at [facility] 4156 Unchanged albuterol (albuterol 90 mcg/ inh aerosol inhaler) 1 Puffs Inhale (breathe in) Every 6 hours as needed for as needed for wheezing Unchanged allopurinol (allopurinol 100 mg oral tablet) 1 tab Oral (given by mouth) Every day Unchanged ascorbic acid (Vitamin C 250 mg oral tablet) Unchanged atorvastatin (atorvastatin 40 mg oral tablet) 1 tab Oral (given by mouth) Every day Unchanged bifidobacterium-lactobacillus (Probiotic 10 Ultra Strength) Unchanged cetirizine (cetirizine 10 mg oral tablet) 1 tab Oral (given by mouth) 2 times a day Unchanged Durable Medical Equipment for Prescription (B-D UF III SHORT PEN NEED MIS) See instructions Use one new pen needle for each insulin injection 5 to 7 times per day as directed in case of pump malfunction ?? Unchanged Durable Medical Equipment for Prescription (Dexcom CGM- change q10 days) See instructions Duration: 10 Days Unchanged Durable Medical Equipment for Prescription (Portable Back Pack O2 Tank) See instructions Acute hypoxic respiratory failure 2.5L pulse dose ?? Unchanged elderberry 350 Milligrams Oral (given by mouth) Every day Unchanged glucagon (Glucagon Emergency Kit for Low Blood Sugar) See instructions hypoglycemia symptoms follow instructions per kit, As needed for low blood sugar ?? Unchanged insulin lispro (HumaLOG KwikPen 100 units/ mL injectable solution) 40 Units Subcutaneous (under the skin) Every morning With breakfast if BG is 230 or higher ?? Unchanged insulin regular (HumuLIN R KwikPen (Concentrated) 500 units/ mL subcutaneous solution) See instructions 230 units of humilin at breakfast 150 Units of humilin at lunch 100 Units of humilin at dinner, decrease dose and titrate as necessary as half dose of insulin was given in hospital and was still hypoglycemic ?? Unchanged levothyroxine 250 Micrograms Oral (given by mouth) Every day Unchanged lisinopril (lisinopril 5 mg oral tablet) 1 tab Oral (given by mouth) Every night at bedtime Unchanged oseltamivir (Tamiflu 75 mg oral capsule) 1 Capsules Oral (given by mouth) 2 times a day Duration: 3 Days Unchanged Other Prescription (ONETOTyfone VERIO FLEX KIT) 1 each by [facility] [place]. (non drug: combo route) route 4 times daily. ?? Unchanged Other Prescription (One Touch EMRUCH VERIO MARLENE) Test blood glucose withone new test strip 4 times daily ?? Unchanged Other Prescription (Catchafire Probiotic) 1 Oral (given by mouth) Every day Unchanged tirzepatide (Mounjaro 2.5 mg/ 0.5 mL subcutaneous solution) 2.5 Milligrams Subcutaneous (under the skin) Every week rotate injection sites ?? Unchanged tirzepatide (Mounjaro 2.5 mg/ 0.5 mL subcutaneous solution) 2.5 Milligrams Subcutaneous (under the skin) Every week Morbid obesity rotate injection sites ?? Unchanged torsemide (torsemide 20 mg oral tablet) 3 tab Oral (given by mouth) 2 times a day TWICE ??DAIY. ?? Pharmacy Information [facility] [id number] [place] [address] [phone] Allergies rOPINIRole morphine oxyCODONE Social History Alcohol Current, 1-2 times per month Electronic Cigarette/Vaping Electronic Cigarette Use: Never. 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 Home/Environment Lives with grandparents. Living situation: Home/Independent. Nutrition/Health Caffeine intake amount: about 150 mg/day. Substance Use Never Tobacco Never tobacco user Tobacco Use:. Family History Diabetes mellitus: Other. Insomnia: Mother. Restless legs syndrome: Grandfather (M). Sleep apnea: Mother, Father and Grandfather (P). Immunizations Vaccine Date Status pneumococcal 15-valent conjugate vaccine 12/08/2021 Recorded SARS-CoV-2 (COVID-19) mRNA-1273 vaccine 11/19/2020 Recorded SARS-CoV-2 (COVID-19) mRNA-1273 vaccine 10/22/2020 Recorded influenza virus vaccine, live 06/17/2020 Recorded tetanus-diphth toxoids (Td) adult/adol 03/23/2020 Recorded Comments : pt tolerated well influenza virus vaccine, live 06/13/2019 Recorded influenza virus vaccine, live 06/18/2018 Recorded influenza, unspecified formulation 08/08/2016 Recorded influenza virus vaccine, inactivated 06/30/2015 Recorded meningococcal ACWY, unspecified formulat 10/19/2014 Recorded influenza virus vaccine, inactivated 06/10/2014 Recorded influenza virus vaccine, inactivated 06/16/2013 Recorded influenza virus vaccine, inactivated 07/04/2012 Recorded influenza virus vaccine, inactivated 06/13/2011 Recorded HPV, unspecified formulation 11/01/2010 Recorded influenza virus vaccine, inactivated 08/26/2010 Recorded influenza virus vaccine, inactivated 07/13/2009 Recorded HPV, unspecified formulation 01/25/2009 Recorded HPV, unspecified formulation 09/24/2008 Recorded influenza virus vaccine, inactivated 07/23/2008 Recorded varicella virus vaccine 07/23/2008 Recorded meningococcal conjugate vaccine 07/23/2008 Recorded HPV, unspecified formulation 07/23/2008 Recorded tetanus/diphth/pertuss (Tdap) adult/adol 07/23/2008 Recorded influenza virus vaccine, inactivated 08/08/2006 Recorded diphtheria/pertussis, acellular/tetanus 04/21/2002 Recorded poliovirus vaccine, inactivated 04/21/2002 Recorded measles/mumps/rubella virus vaccine 11/28/2000 Recorded varicella virus vaccine 08/30/2000 Recorded haemophilus b conjugate (HbOC) vaccine 08/26/1998 Recorded diphtheria/pertussis, acellular/tetanus 08/26/1998 Recorded poliovirus vaccine, inactivated 08/26/1998 Recorded measles/mumps/rubella virus vaccine 02/26/1998 Recorded hepatitis B pediatric vaccine 1997 Recorded poliovirus vaccine, inactivated 1997 Recorded haemophilus b conjugate (HbOC) vaccine 1997 Recorded diphtheria/pertussis, acellular/tetanus 1997 Recorded haemophilus b conjugate (HbOC) vaccine 1997 Recorded diphtheria/pertussis, acellular/tetanus 1997 Recorded poliovirus vaccine, inactivated 1997 Recorded poliovirus vaccine, inactivated 1997 Recorded haemophilus b conjugate (HbOC) vaccine 1997 Recorded diphtheria/pertussis, acellular/tetanus 1997 Recorded hepatitis B pediatric vaccine 1997 Recorded hepatitis B pediatric vaccine 1997 Recorded Electronically Signed on 11/27/23 09:02 AM Jaida Lamb NP Patient Care team information Care Team Personnel Name: Jamila Archer MD Position: Physician Member Role: Informed Provider Address: Address: [address] [place] [address] [place] [address]- [place] Name: Shila Krueger Position: Ambulatory - RN/HISTORICAL MANUSCRIPTS CURATOR ([facility]) Member Role: Nurse First Assist Care Team Related Persons Name: EMILIO PATHAK Address: Home [address], [phone] Name: ELLIS GRAMAJO Address: Home [address] [place], [phone]
--- OUTSIDE RECORDS SUMMARY | 2024-02-29 19:08 | XMS_ITS | Continuity of Care Document ---
Author Name Unknown Organization [facility] Address [address] [place] [address] Care Team Providers Care Egg Grader Name Role Phone Jamila Archer Primary Care Physician [phone] Encounter [facility] [id number] Date(s): 10/11/23 - 10/11/[address] [id number] Encounter Diagnosis Gastroenteritis(Discharge Diagnosis) - 10/11/23 Hypoglycemia(Discharge Diagnosis) - 10/11/23 Noninfective gastroenteritis and colitis, unspecified(Final) - Type 2 diabetes mellitus with hypoglycemia without coma(Final) - Discharge Disposition: Home or Self Care Attending Physician: Nikki Wilson MD Admitting Physician: Nikki Wilson MD Allergies, Adverse Reactions, Alerts Substance Reaction Severity Status morphine Unknown Active rOPINIRole Severe Active Assessment and Plan Extracted from: Title:ED Provider Note Author:Landon Gonzales MD Date:10/11/23 Assessment/Plan 1.??Gastroenteritis??K52.9 2.??Hypoglycemia??E16.2 Orders: Dextrose 10% in Water 100 mL, Total Volume (mL): 100, 100 mL, Soln-IV, IV, 400 mL/hr, Start Date: 10/11/23 20:42:00 EST, Populate Charting Weight From Order ondansetron 4 mg oral tablet, 4 mg = 1 tab, Oral, every 8 hr, # 20 tab, 0 Refill(s), 10/16/23 22:30:00 EST, Pharmacy: [id number], 149, cm, 07/08/23 18:54:00 EDT, Height/Length Dosing, 133.2, kg, 07/25/23 10:54:00 EST, Weight Dosing THP ondansetron 4 mg Dis Tab, 1 EA, Oral, Misc, Once, First Dose: 10/11/23 22:24:00 EST, Stop Date: 10/11/23 22:24:00 EST, Physician Stop, STAT THP traMADol 50 mg Tab, 1 EA, Oral, Misc, Once, First Dose: 10/11/23 22:27:00 EST, Stop Date: 10/11/23 22:27:00 EST, Physician Stop, STAT Bedrest with Bathroom Privileges, 10/11/23 19:38:00 EST, Once, 10/11/23 19:38:00 EST, 10/11/23 19:38:00 EST Discharge Patient, 10/11/23 22:23:00 EST, Home Independently, Constant Indicator NPO, 10/11/23 19:38:00 EST, Constant Indicator Peripheral IV Insertion, 10/11/23 19:38:00 EST Patient Discharge Condition improved Discharge Disposition home Patient Education Diarrhea, Adult, [id number] Follow Up With When Contact Information Jamila Archer MD Within 1 to [address] [place] [phone] ?? Additional Instructions: Future Appointments Future Scheduled Tests Laboratory* Basic Metabolic Panel 05/29/23 * CBC w/ Diff 05/01/23 * Comprehensive Metabolic Panel 08/16/23 * Uric Acid 08/16/23 Radiology* XR Spine Lumbosacral 4+ Views 02/27/23 * NM Myocardial Rest Stress 2 Day Protocol 05/29/23 Immunizations Given and Recorded Vaccine Date Status [...] instructions, # 500 EA, 0 Refill(s), Pharmacy: [facility] [id number] Start Date: 09/08/22 Status: Ordered cetirizine 10 mg oral tablet 1 tab, Oral, BID, # 60 tab, 0 Refill(s), Pharmacy: [facility] [id number], 149, cm, 07/08/23 18:54:00 EDT, Height/Length Dosing, 133.2, kg, 07/25/23 10:54:00 EST, Weight Dosing Start Date: 09/12/23 Status: Ordered chlorthalidone 25 mg oral tablet 1 tab, Oral, Daily, # 90 tab, 3 Refill(s), Pharmacy: [facility] [id number], 149, cm, 07/08/23 18:54:00 EDT, Height/Length Dosing, 133.2, kg, 07/25/23 10:54:00 EST, Weight Dosing Start Date: 08/11/23 Status: Ordered colchicine 0.6 mg oral tablet 0.6 mg = 1 tab, Oral, BID, Take 2 tablets for 1.2mg followed by one tablet 0.6 mg one hour later today. Days 2-10 take one tablet twice a day, # 21 tab, 0 Refill(s), Pharmacy: [facility] [id number], 149, cm, 07/08/23 18:54:00 EDT, Height/Length Dosing, 133.2, kg, 07/25/23 10:54:00 EST, Weight Dosing Start Date: 09/06/23 Status: Ordered Dexcom G6 sensors Dexcom G6 sensors, To check BS 4x daily, Supply, See instructions, # 6 EA, 0 Refill(s), Pharmacy: [facility] [id number] Start Date: 11/24/22 Status: Ordered Dexcom Sensors G6, change every 10 days Dexcom Sensors G6, change every 10 days, Use for BS monitoring, Supply, See instructions, # 4 EA, 3Refill(s), Pharmacy: [facility] Start Date: 01/16/23 Status: Ordered Dexcom Transmitter, change every 3 months Dexcom Transmitter, change every 3 months, Use to monitor BS, Supply, See instructions, # 1 EA, 3 Refill(s), Pharmacy: [facility] Start Date: 04/11/23 Status: Ordered elderberry 350 mg, Oral, Daily, 0 Refill(s) Start Date: 07/08/23 Status: Ordered Glucagon Emergency Kit for Low Blood Sugar See Instructions, PRN low blood sugar, follow instructions per kit, 0 Refill(s) Start Date: 03/24/22 Status: Ordered HumaLOG Mina KwikPen 100 units/mL injectable solution See Instructions, injects per sliding scale, 0 Refill(s) Start Date: 07/09/23 Status: Ordered HumuLIN R KwikPen (Concentrated) 500 units/mL subcutaneous solution 200 units =, Intradermal, AC, 200 before breakfast, 150 units before lunch and dinner and 50 units at bedtime. 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 (non drug: combo route) route 4 times daily. Start Date: 03/02/22 Status: Ordered ONETOUCH VERIO MARLENE ONETOUCH VERIO MARLENE, Test blood glucose withone new test strip 4 times daily Start Date: 03/02/22 Status: Ordered senna 25 mg oral tablet 25 mg = 1 tab, Oral, Daily, 0 Refill(s) Start Date: 07/09/23 Status: Ordered torsemide 20 mg oral tablet 3 tab, Oral, BID, TWICE DAIY., # 180 tab, 3 Refill(s), Pharmacy: [id number], 149, cm, 07/08/23 18:54:00 EDT, Height/Length Dosing, 133.2, kg, 07/25/23 10:54:00 EST, Weight Dosing Start Date: 08/06/23 Status: Ordered Problem List Condition Confirmation Course Effective Dates Status H ealth Status Informant Aortic stenosis Confirmed Active Autoimmune thyroiditis Confirmed Active Bilateral lower extremity edema Confirmed Active Clostridioides difficile 1 Confirmed 07/09/23 Active C. difficile colitis Confirmed Active Constipation Confirmed Active Developmental disorder Confirmed Active Erythroderma Confirmed Active HLD (hyperlipidemia) Confirmed Active HTN (hypertension) Confirmed Active Hypothyroidism Confirmed Active 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 Intermenstrual bleeding - irregular Confirmed Active Irregular sleep-wake pattern Confirmed Active Localized edema Confirmed Active Mediastinal adenopathy Confirmed Active Morbid obesity Confirmed Active Obstructive sleep apnea syndrome Confirmed Active HOLLIE treated with BiPAP Confirmed Active Palpitations Confirmed Active Peripheral edema Confirmed Active Hospital discharge follow-up Confirmed Active [...] tonsillectomy 2003; repeat adenoidectomy 2013 4with adenoidectomy Results Laboratory List Name Date .Manual Differential (NCTY) 2/1/24 CBC w/ Diff 10/11/23 Comprehensive Metabolic Panel (CMP) Lipase Level 10/11/23 Test Urine Qual 10/11/23 Urinalysis with Micro if Indicated and C ulture if Indicated 10/11/23 Most recent to oldest [Reference Range]: 1 WBC [5.0-10.0 x10^3/mcL] 7.7 x10^3/mcL (10/11/23 7:50 PM) RBC [4.1-5.3 x10^6/mcL] 4.7 x10^6/mcL (10/11/23 7:50 PM) Segs Man [40-75 %] 86 % *HI* (10/11/23 7:50 PM) Lymph Man [20-50 %] 7 % *LOW* (10/11/23 7:50 PM) [place] Man [2-15 %] 3 % (10/11/23 7:50 PM) Eos Man [1-6 %] 3 % (10/11/23 7:50 PM) BUN [7-18 mg/dL] 19 mg/dL *HI* (10/11/23 7:50 PM) UA Color Yellow (10/11/23 7:50 PM) Glucose Level [74-106 mg/dL] 81 mg/dL (10/11/23 7:50 PM) Potassium Level [3.5-5.1 mmol/L] 4.5 mmo l/L (10/11/23 7:50 PM) MCV [80.0-96.0 fL] 91.3 fL (10/11/23 7:50 PM) UA Urobilinogen Normal (10/11/23 7:50 PM) RBC Morph Normal (10/11/23 7:50 PM) UA Bili [Negative] Negative (10/11/23 7:50 PM) UA Ketones Negative (10/11/23 7:50 PM) AST [15-37 unit/L] 183 unit/L *HI* (10/11/23 7:50 PM) ALT [14-59 unit/L] 238 unit/L *HI* (10/11/23 7:50 PM) MCHC [31.0-35.0 g/dL] 32.2 g/dL (10/11/23 7:50 PM) Sodium Level [136-145 mmol/L] 139 mmol/L (10/11/23 7:50 PM) UA Leuk Est Negative (10/11/23 7:50 PM) UA Nitrite Negative (10/11/23 7:50 PM) UA Glucose [Negative] Negative (10/11/23 7:50 PM) Hct [37.0-47.0 %] 43.2 % (10/11/23 7:50 PM) Lipase Level [16-77 unit/L] 16 unit/L 1 (10/11/23 7:50 PM) Calcium Level [8.5-10.1 mg/dL] 9.5 mg/dL (10/11/23 7:50 PM) Albumin Level [3.4-5.0 g/dL] 3.7 g/dL (10/11/23 7:50 PM) Protein Total [6.4-8.2 g/dL] 8.4 g/dL *HI* (10/11/23 7:50 PM) UA Protein Negative (10/11/23 7:50 PM) MCH [26.0-32.0 pg] 29.4 pg (10/11/23 7:50 PM) Bilirubin Total [0.2-1.0 mg/dL] 0.5 mg/d L (10/11/23 7:50 PM) Hgb [12.0-16.0 g/dL] 13.9 g/dL (10/11/23 7:50 PM) Alk Phos [46-146 unit/L] 257 unit/L *HI* (10/11/23 7:50 PM) UA Blood Negative (10/11/23 7:50 PM) Band Man [0-5 %] 1 % (10/11/23 7:50 PM) UA Spec Grav 1.010 *NA* (10/11/23 7:50 PM) Platelets [130-450 x10^3/mcL] 273 x10^3/ mcL (10/11/23 7:50 PM) CO2 [21-32 mmol/L] 30 mmol/L (10/11/23 7:50 PM) UA pH 6.5 *NA* (10/11/23 7:50 PM) eGFR Non-AA [>=60] 114 (10/11/23 7:50 PM) eGFR AA [>=60] 114 (10/11/23 7:50 PM) UA Appear Clear (10/11/23 7:50 PM) Chloride Level [98-107 mmol/L] 99 mmol/L (10/11/23 7:50 PM) RDW-CV [11.5-14.5 %] 13.9 % (10/11/23 7:50 PM) Slide Review Man Diff (10/11/23 7:50 PM) Abs Neut Man 6.7 x10^3/mcL *NA* (10/11/23 7:50 PM) Creatinine Level [0.55-1.02 mg/dL] 0.74 mg/dL (10/11/23 7:50 PM) Baso Man [0-1 %] 0 % (10/11/23 7:50 PM) U hCG Ql Negative (10/11/23 7:50 PM) 1Interpretive Data: Effective 06/29/22, [facility] has switched to a revised Lipase test.Note new ReferenceRange. Vital Signs Most recent to oldest [Reference Range]: 1 2 Peripheral Pulse Rate [60-100 bpm] 131 b pm *HI* (10/11/23 8:46 PM) Respiratory Rate [12-24 br/min] 18 br/mi n (10/11/23 8:46 PM) 18 br/min (10/11/23 5:17 PM) Blood Pressure [90-140/60-90 mmHg] 153/1 11mmHg *HI* (10/11/23 5:17 PM) Mean Arterial Pressure, Cuff [70-110 mmH g] 125 mmHg *>HHI* (10/11/23 5:17 PM) Weight Estimated 137.44 kg (10/11/23 5:17 PM) Body Mass Index Estimated 61.2 kg/m2 (10/11/23 5:17 PM) Height/Length Estimated 149.86 cm (10/11/23 5:17 PM) Social History Social History Type Response Tobacco Never tobacco user T obacco Use:. Sex Female Hospital Discharge Instructions Patient Education 10/11/2023 21:29:01 Diarrhea, Adult, Aaap-cs-Nytp Diarrhea, Adult Diarrhea is when you pass loose and watery poop (stool) often. Diarrhea can make you feel weak and cause you to lose water in your body (get dehydrated). Losing water in your body can cause you to: ??? Feel tired and thirsty. ??? Have a dry mouth. ??? Go pee (urinate) less often. Diarrhea often lasts 2???3 days. However, it can last longer if it is a sign of something more serious. It is important to treat your diarrhea as told by your doctor. Follow these instructions at home: Eating and drinking Follow these instructions as told by your doctor: ??? Take an ORS (oral rehydration solution). This is a drink that helps you replace fluids and minerals your body lost. It is sold at pharmacies and stores. ??? Drink plenty of fluids, such as: ??? Water. ??? Ice chips. ??? Diluted fruit juice. ??? Low-calorie sports drinks. ??? Milk, if you want. ??? Avoid drinking fluids that have a lot of sugar or caffeine in them. ??? Eat bland, zpor-dp-ttlvkx foods in small amounts as you are able. These foods include: ??? Bananas. ??? Applesauce. ??? Rice. ??? Low-fat (lean) meats. ??? Mabel. ??? Crackers. ??? Avoid alcohol. ??? Avoid spicy or fatty foods. Medicines ??? Take qxvk-ebo-nbbeeam and prescription medicines only as told by your doctor. ??? If you were prescribed an antibiotic medicine, take it as told by your doctor. Do not stop using the antibiotic even if you start to feel better. General instructions ??? Wash your hands often using soap and water. If soap and water are not available, use a hand insurance specialist. Others in your home should wash their hands as well. Hands should be washed: ??? After using the toilet or changing a diaper. ??? Before preparing, cooking, or serving food. ??? While caring for a sick person. ??? While visiting someone in a hospital. ??? Drink enough fluid to keep your pee (urine) pale yellow. ??? Rest at home while you get better. ??? Take a warm bath to help with any burning or pain from having diarrhea. ??? Watch your condition for any changes. ??? Keep all follow-up visits as told by your doctor. This is important. Contact a doctor if: ??? You have a fever. ??? Your diarrhea gets worse. ??? You have new symptoms. ??? You cannot keep fluids down. ??? You feel light-headed or dizzy. ??? You have a headache. ??? You have muscle cramps. Get help right away if: ??? You have chest pain. ??? You feel very weak or you pass out (faint). ??? You have bloody or black poop or poop that looks like tar. ??? You have very bad pain, cramping, or bloating in your belly (abdomen). ??? You have trouble breathing or you are breathing very quickly. ??? Your heart is beating very quickly. ??? Your skin feels cold and clammy. ??? You feel confused. ??? You have signs of losing too much water in your body, such as: ??? Dark pee, very little pee, or no pee. ??? Cracked lips. ??? Dry mouth. ??? Sunken eyes. ??? Sleepiness. ??? Weakness. Summary ??? Diarrhea is when you pass loose and watery poop (stool) often. ??? Diarrhea can make you feel weak and cause you to lose water in your body (get dehydrated). ??? Take an ORS (oral rehydration solution). This is a drink that is sold at pharmacies and stores. ??? Eat bland, fnyd-io-cezhvm foods in small amounts as you are able. ??? Contact a doctor if your condition gets worse. Get help right away if you have signs that you have lost too much water in your body. This information is not intended to replace advice given to you by your health care provider. Make sure you discuss any questions you have with your health care provider. Document Revised: 03/08/2022 Document Reviewed: 03/08/2022 [employer] Patient Education ?? 2022 [employer] Follow Up Care 10/11/2023 17:17:42 With:Jamila Archer MD Address: [address] [place] [address] [place] [address]- When:1 to 2 days Physician Emergency department Note * Landon Gonzales MD: PERFORM, MODIFY, MODIFY Event Display: ED Note Physician Authored Date: [id number] NIKUNJTATIOTTO MARIELOS Rangel :1995 Age:28 years Sex:Female Visit Date:10/11/2023 Primary Care Physician: Jamila Archer MD Basic Information Time Seen: Landon Gonzales MD / 10/11/2023 19:21 Chief Complaint Pt states she woke up this am and she started with nausea. ??Vomitied x 1. ??C/O diarrhea today as well. ??Pt is a diabetic and states her sugars are low History Of Present Illness: Patient who presents to the emergency department complaining of??nausea vomiting x 1 and diarrhea??throughout the day. ??States that the diarrhea has improved but she is diabetic??and since she does not eat her sugars have been low.?? Denies any fever denies any chills denies any abdominal pain Review of Systems: Constitutional: No fevers, chills, sweats Eye: No recent visual problems ENT: No ear pain, nasal congestion, sore throat Respiratory: No shortness of breath, cough Cardiovascular: No Chest pain, palpitations, syncope Genitourinary: No hematuria Kamran/Lymph: Negative for bruising tendency, swollen lymph glands Endocrine: Negative for excessive thirst, excessive hunger Musculoskeletal: No back pain, neck pain, joint pain, muscle pain, decreased range of motion Integumentary: No rash, pruritus, abrasions Neurologic: Alert & oriented X 4 Psychiatric: No anxiety, depression Physical Exam Vitals & Measurements RR:??18?? BP:??153/111?? SpO2:??99%?? HT:??149.86??cm?? WT:??137.44??kg??(Estimated)?? BMI:??61.2?? O2 Therapy:??Room air?? General: Alert and oriented, well nourished, no acute distress. Eye: PERRL, EOMI, normal conjunctiva. HENT: Normocephalic, clear tympanic membranes, normal hearing, moist oral mucosa, no scleral icterus, no sinus tenderness. Neck: Supple, non-tender, no carotid bruits, no JVD, no lymphadenopathy. Lungs: Clear to auscultation and percussion, non-labored respiration. Heart: Normal rate, regular rhythm, no murmur, gallop or edema. Breast: No lumps, no bumps, no scars, normal nipples. Abdomen: Soft, non-tender, non-distended, normal bowel sounds, no masses. Musculoskeletal: Normal range of motion and strength, no tenderness or swelling. Skin: Skin is warm, dry and appropriate for ethnicity, no rashes or lesions. Neurologic: Awake, alert and oriented X4, CN II-XII intact. Psychiatric: Cooperative, appropriate mood and affect. Medical Decision Making: MDM: Summary: Patient who is a insulin-dependent diabetic??comes into the emergency department for she has been having diarrhea nausea and not tolerating??food all day. ??Feels??dehydrated with a headache.?? Labs were done which show hyperglycemia for she did take her insulin was not beating in anything??she wasgiving??orange juice and??D10 with improvement of her blood sugar??she was given IV fluids Zofran and now she is improved.?? I told her she is to hydrate herself??when she goes home I been giving herprescription for Zofran??as well as??her not to use her insulin if she gets??to the point where shecannot drink. ??She is able to tolerate fluids she has no abdominal pain??and will be discharged home ? Data Review Analysis All the data on this patient was reviewed by me including laboratory??and imaging studies??as well as bedside studies performed by me ?? Independent review of Studies Imaging ?? Lab: Labs show mild ovation LFTs which she has had before??as well as??hyperglycemia after she received??orange juice for hypoglycemia ?? Risk Stratification: She was a diabetic who had's??gastroenteritis and diarrhea??she came dehydrated we aggressively hydrated her and she is able to tolerate??fluids??will be discharged home??with follow-up ? Differential Diagnosis: 1.?? Gastroenteritis 2.?? Colitis 3.?? Hyperglycemia 4.?? Brittle diabetes 5. ? Consultants: ? Shared disposition: Patient states he feels better??understands the instructions and will do accordingly and will follow-up tomorrow with her primary care physician ?? Impression:? Procedure No Qualifying Data Assessment/Plan 1.??Gastroenteritis??K52.9 2.??Hypoglycemia??E16.2 Orders: Dextrose 10% in Water 100 mL, Total Volume (mL): 100, 100 mL, Soln-IV, IV, 400 mL/hr, Start Date: 10/11/23 20:42:00 EST, Populate Charting Weight From Order ondansetron 4 mg oral tablet, 4 mg = 1 tab, Oral, every 8 hr, # 20 tab, 0 Refill(s), 10/16/23 22:30:00 EST, Pharmacy: [id number], 149, cm, 07/08/23 18:54:00 EDT, Height/Length Dosing, 133.2, kg, 07/25/23 10:54:00 EST, Weight Dosing THP ondansetron 4 mg Dis Tab, 1 EA, Oral, Misc, Once, First Dose: 10/11/23 22:24:00 EST, Stop Date:10/11/23 22:24:00 EST, Physician Stop, STAT THP traMADol 50 mg Tab, 1 EA, Oral, Misc, Once, First Dose: 10/11/23 22:27:00 EST, Stop Date: 10/11/23 22:27:00 EST, Physician Stop, STAT Bedrest with Bathroom Privileges, 10/11/23 19:38:00 EST, Once, 10/11/23 19:38:00 EST, 10/11/23 19:38:00 EST Discharge Patient, 10/11/23 22:23:00 EST, Home Independently, Constant Indicator NPO, 10/11/23 19:38:00 EST, Constant Indicator Peripheral IV Insertion, 10/11/23 19:38:00 EST Patient Discharge Condition improved Discharge Disposition home Patient Education Diarrhea, Adult, Fbau-lp-Eyhr Follow Up With When Contact Information Jamila Archer MD Within 1 to [address] [place] [address] [place], [place] [phone]- Additional Instructions: Medication Reconciliation New Prescription ondansetron (ondansetron 4 mg oral tablet)1 tab Oral (given by mouth) every 8 hours. Refills: 0. ?? Unchanged atorvastatin (atorvastatin 40 mg oral tablet)1 tab Oral (given by mouth) every day. ?? cetirizine (cetirizine 10 mg oral tablet)1 tab Oral (given by mouth) 2 times a day. Refills: 0. ?? chlorthalidone (chlorthalidone 25 mg oral tablet)1 tab Oral (given by mouth) every day. Refills: 3. ?? colchicine (colchicine 0.6 mg oral tablet)1 tab Oral (given by mouth) 2 times a day. Take 2 tabletsfor 1.2mg followed by one tablet 0.6 mg one hour later today. Days 2-10 take one tablet twice a day. Refills: 0. ?? Durable Medical Equipment for Prescription (B-D UF III SHORT PEN NEED MIS)Use one new pen needle for each insulin injection 5 to 7 times per day as directed in case of pump malfunction. Refills: 0. ?? Durable Medical Equipment for Prescription (Dexcom G6 sensors)To check BS 4x daily. Refills: 0. ?? Durable Medical Equipment for Prescription (Dexcom Sensors G6, change every 10 days)Use for BS monitoring. Refills: 3. ?? Durable Medical Equipment for Prescription (Dexcom Transmitter, change every 3 months)Use to monitor BS. Refills: 3. ?? [id number] Milligrams Oral (given by mouth) every day. ?? glucagon (Glucagon Emergency Kit for Low Blood Sugar)follow instructions per kit; as needed low blood sugar. ?? insulin lispro (HumaLOG Mina KwikPen 100 units/mL injectable solution)injects per sliding scale. ?? insulin regular (HumuLIN R KwikPen (Concentrated) 500 units/mL subcutaneous solution)200 Units Intradermal (in the skin) before meals. 200 before breakfast, 150 units before lunch and dinner and 50 units at bedtime. correction factor of 50 units. ?? [id number] Micrograms Oral (given by mouth) every day. ?? naproxen (naproxen 500 mg oral delayed release tablet)1 tab Oral (given by mouth) 2 times a day. Refills: 0. ?? Other Prescription (ONETOUCH VERIO FLEX KIT)1 each by [facility]. (non drug: combo route) route 4 times daily.. ?? Other Prescription (ONETOUCH VERIO MARLENE)Test blood glucose withone new test strip 4 times daily. ?? senna (senna 25 mg oral tablet)1 tab Oral (given by mouth) every day. ?? torsemide (torsemide 20 mg oral tablet)3 tab Oral (given by mouth) 2 times a day. TWICE DAIY.. Refills: 3. Problem List/Past Medical History Ongoing Aortic stenosis Autoimmune thyroiditis Bilateral lower extremity edema C. difficile colitis Clostridioides difficile Constipation Developmental disorder Erythroderma HLD (hyperlipidemia) Hospital discharge follow-up HTN (hypertension) Hypothyroidism Idiopathic sleep related non-obstructive alveolar hypoventilation Intermenstrual bleeding - irregular Irregular sleep-wake pattern Localized edema Mediastinal adenopathy Morbid obesity Obstructive sleep apnea syndrome HOLLIE treated with BiPAP Palpitations Peripheral edema Pulmonary hypertension Tachycardia Tension-type headache Thyroid nodule Type 1 diabetes Historical No qualifying data Procedure/Surgical History ???Due 10/2025 (10/31/2022)???ORIF - Open reduction and internal fixation of fracture (12/22/2020)???Adenoidectomy (09/10/2013)???Tonsillectomy (09/10/2003) Allergies rOPINIRole morphine Social History Alcohol Current, 1-2 times per month Electronic Cigarette/Vaping Electronic Cigarette Use: Never. 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 Home/Environment Lives with grandparents. Living situation: Home/Independent. Nutrition/Health Caffeine intake amount: about 150 mg/day. Substance Use Never Tobacco Never tobacco user Tobacco Use:. Family History Diabetes mellitus: Other. Insomnia: Mother. Restless legs syndrome: Grandfather (M). Sleep apnea: Mother, Father and Grandfather (P). Lab Results CBC and Differential?? LATEST RESULTS?? HISTORICAL RESULTS?? WBC?? 10/11/23 19:50?? 7.7?? 08/16/23?? 8.8?? RBC?? 10/11/23 19:50?? 4.7?? 08/16/23?? 3.8 ??Low?? Hgb?? 10/11/23 19:50?? 13.9?? 08/16/23?? 11.6 ??Low?? Hct?? 10/11/23 19:50?? 43.2?? 08/16/23?? 35.7 ??Low?? MCV?? 10/11/23 19:50?? 91.3?? 08/16/23?? 92.7?? MCH?? 10/11/23 19:50?? 29.4?? 08/16/23?? 30.1?? MCHC?? 10/11/23 19:50?? 32.2?? 08/16/23?? 32.5?? RDW-CV?? 10/11/23 19:50?? 13.9?? 08/16/23?? 15.5 ??High?? Platelets?? 10/11/23 19:50?? 273?? 08/16/23?? 314?? Segs Man?? 10/11/23 19:50?? 86 ??High? Lymph Man?? 10/11/23 19:50?? 7 ??Low? [place] Man?? 10/11/23 19:50?? 3? Eos Man?? 10/11/23 19:50?? 3? Baso Man?? 10/11/23 19:50?? 0? Band Man?? 10/11/23 19:50?? 1? Abs Neut Man?? 10/11/23 19:50?? 6.7? RBC Morph?? 10/11/23 19:50?? Normal? Slide Review?? 10/11/23 19:50?? Man Diff?? 07/08/23?? Not Indicated? Routine Chemistry?? LATEST RESULTS?? HISTORICAL RESULTS?? Sodium Level?? 10/11/23 19:50?? 139?? 08/16/23?? 137?? Potassium Level?? 10/11/23 19:50?? 4.5?? 08/16/23?? 4.7?? Chloride Level?? 10/11/23 19:50?? 99?? 08/16/23?? 98?? CO2?? 10/11/23 19:50?? 30?? 08/16/23?? 28?? Alk Phos?? 10/11/23 19:50?? 257 ??High?? 08/16/23?? 264 ??High?? AST?? 10/11/23 19:50?? 183 ??High?? 08/16/23?? 137 ??High?? ALT?? 10/11/23 19:50?? 238 ??High?? 08/16/23?? 203 ??High?? BUN?? 10/11/23 19:50?? 19 ??High?? 08/16/23?? 23 ??High?? Glucose Level?? 10/11/23 19:50?? 81?? 08/16/23?? 331 ??High?? Creatinine Level?? 10/11/23 19:50?? 0.74?? 08/16/23?? 0.99?? eGFR AA?? 10/11/23 19:50?? 114?? 08/16/23?? 81?? eGFR Non-AA?? 10/11/23 19:50?? 114?? 08/16/23?? 81?? Calcium Level?? 10/11/23 19:50?? 9.5?? 08/16/23?? 10.0?? Protein Total?? 10/11/23 19:50?? 8.4 ??High?? 08/16/23?? 7.8?? Albumin Level?? 10/11/23 19:50?? 3.7?? 08/16/23?? 3.7?? Bilirubin Total?? 10/11/23 19:50?? 0.5?? 08/16/23?? 0.5?? Lipase Level?? 10/11/23 19:50?? 16? Testing?? LATEST RESULTS?? HISTORICAL RESULTS?? U hCG Ql?? 10/11/23 19:50?? Negative?? 07/08/23?? Negative? UA Macroscopic?? LATEST RESULTS?? HISTORICAL RESULTS?? UA Color?? 10/11/23 19:50?? Yellow?? 07/08/23?? Yellow?? UA Appear?? 10/11/23 19:50?? Clear?? 07/08/23?? Clear?? UA Glucose?? 10/11/23 19:50?? Negative?? 07/08/23?? Negative?? UA Bili?? 10/11/23 19:50?? Negative?? 07/08/23?? Negative?? UA Ketones?? 10/11/23 19:50?? Negative?? 07/08/23?? Negative?? UA Spec Grav?? 10/11/23 19:50?? 1.010?? 07/08/23?? 1.015?? UA Blood?? 10/11/23 19:50?? Negative?? 07/08/23?? Trace Abnormal?? UA pH?? 10/11/23 19:50?? 6.5?? 07/08/23?? 5.0?? UA Protein?? 10/11/23 19:50?? Negative?? 07/08/23?? Trace Abnormal?? UA Urobilinogen?? 10/11/23 19:50?? Normal?? 07/08/23?? Normal?? UA Nitrite?? 10/11/23 19:50?? Negative?? 07/08/23?? Negative?? UA Leuk Est?? 10/11/23 19:50?? Negative?? 07/08/23?? Negative? Electronically Signed on 10/11/23 10:33 PM Landon Gonzales MD Emergency department Discharge instructions * Landon Gonzales MD: PERFORM, MODIFY Event Display: ED Discharge Information Authored Date: [id number] MARIELOS MIRAMONTES :1995 Age:28 years Sex:Female Visit Date:10/11/2023 Primary Care Physician: Jamila Archer MD Discharge Instructions We would like to thank you for allowing us to assist you with your healthcare needs. The following includes patient education materials and information regarding your injury/illness. Diagnosis from Today's Visit Gastroenteritis Hypoglycemia Discharge Vitals Heart Rate??(Peripheral) 131 Respiratory Rate?? 18 Blood Pressure?? 153/111?? Height?? 59.00 in (149.86 cm) Weight??(Estimated) 303.06 lb (137.44 kg) BMI?? 61.2 Allergies rOPINIRole morphine What to Do Next You Need to Schedule the Following Appointments Follow Up with??Jamila Archer MD When:??Within 1 to 2 days Where: [address] [place] [id number] Upcoming Scheduled Appointments Sunday 8:20 AM EST ?? With: Jaida Lamb SOLAR SYSTEMS DESIGNER Where: [facility] [address] [place] [address] Status: Confirmed Sunday 4:30 PM EST ?? With: Shila Krueger Where: [address] [address] Status: Confirmed Sunday 9:00 AM EST ?? With: Jamila Archer MD Where: [facility] [address] [address] Status: Confirmed Sunday 9:30 AM EST ?? With: Shila Krueger Where: [address] [address] Status: Confirmed Sunday 3:30 PM EST ?? With: Sully Singleton NP Where: [facility] [address] [place] [address] Status: Confirmed Sunday 10:00 AM EDT ?? Where: [facility] Status: Confirmed You were treated today on an emergency basis; it may be salas to contact your primary care provider to notify them of your visit today. You may have been referred to your regular doctor or a specialist, please follow up as instructed. If your condition worsens or you can't get in to see the doctor, contact the Emergency Department. Medications What How Much When Why Instructions Next Dose New ondansetron (ondansetron 4 mg oral tablet) 1 tab Oral (given by mouth) Every 8 hours Pickup at [facility] Unchanged atorvastatin (atorvastatin 40 mg oral tablet) 1 tab Oral (given by mouth) Every day Unchanged cetirizine (cetirizine 10 mg oral tablet) 1 tab Oral (given by mouth) 2 times a day Unchanged chlorthalidone (chlorthalidone 25 mg oral tablet) 1 tab Oral (given by mouth) Every day Unchanged colchicine (colchicine 0.6 mg oral tablet) 1 tab Oral (given by mouth) 2 times a day Take 2 tablets for 1.2mg followed by one tablet 0.6 mg one hour later today. Days 2-10 take one tablet twice a day ?? Unchanged Durable Medical Equipment for Prescription (B-D UF III SHORT PEN NEED MIS) See instructions Use one new pen needle for each insulin injection 5 to 7 times per day as directed in case of pump malfunction ?? Unchanged Durable Medical Equipment for Prescription (Dexcom G6 sensors) See instructions To check BS 4x daily ?? Unchanged Durable Medical Equipment for Prescription (Dexcom Sensors G6, change every 10 days) See instructions Use for BS monitoring ?? Unchanged Durable Medical Equipment for Prescription (Dexcom Transmitter, change every 3 months) See instructions Use to monitor BS ?? Unchanged elderberry 350 Milligrams Oral (given by mouth) Every day Unchanged glucagon (Glucagon Emergency Kit for Low Blood Sugar) See instructions hypoglycemia symptoms follow instructions per kit, As needed for low blood sugar ?? Unchanged insulin lispro (HumaLOG Mina KwikPen 100 units/ mL injectable solution) See instructions injects per sliding scale ?? Unchanged insulin regular (HumuLIN R KwikPen (Concentrated) 500 units/ mL subcutaneous solution) 200 Units Intradermal (in the skin) Before meals 200 before breakfast, 150 units before lunch and dinner and 50 units at bedtime. correction factor of 50 units ?? Unchanged levothyroxine 250 Micrograms Oral (given by mouth) Every day Unchanged naproxen (naproxen 500 mg oral delayed release tablet) 1 tab Oral (given by mouth) 2 times a day Unchanged Other Prescription (ONETOUCH VERIO FLEX KIT) 1 each by [facility]. (non drug: combo route) route 4 times daily. ?? Unchanged Other Prescription (ONETOUCH VERIO MARLENE) Test blood glucose withone new test strip 4 times daily ?? Unchanged senna (senna 25 mg oral tablet) 1 tab Oral (given by mouth) Every day Unchanged torsemide (torsemide 20 mg oral tablet) 3 tab Oral (given by mouth) 2 times a day TWICE ??DAIY. ?? Pharmacy Information [facility]: [address] [place] [address] [phone] Education Materials Diarrhea, Adult Diarrhea is when you pass loose and watery poop (stool) often. Diarrhea can make you feel weak and cause you to lose water in your body (get dehydrated). Losing water in your body can cause you to: ? Feel tired and thirsty. ? Have a dry mouth. ? Go pee (urinate) less often. Diarrhea often lasts 2???3 days. However, it can last longer if it is a sign of something more serious. It is important to treat your diarrhea as told by your doctor. Follow these instructions at home: Eating and drinking Follow these instructions as told by your doctor: ? Take an ORS (oral rehydration solution). This is a drink that helps you replace fluids and mineralsyour body lost. It is sold at pharmacies and stores. ? Drink plenty of fluids, such as: ? Water. ? Ice chips. ? Diluted fruit juice. ? Low-calorie sports drinks. ? Milk, if you want. ? Avoid drinking fluids that have a lot of sugar or caffeine in them. ? Eat bland, glca-gp-vgltnq foods in small amounts as you are able. These foods include: ? Bananas. ? Applesauce. ? Rice. ? Low-fat (lean) meats. ? Mabel. ? Crackers. ? Avoid alcohol. ? Avoid spicy or fatty foods. Medicines ? Take iegn-gwq-ktdekvt and prescription medicines only as told by your doctor. ? If you were prescribed an antibiotic medicine, take it as told by your doctor. Do not stop using the antibiotic even if you start to feel better. General instructions ? Wash your hands often using soap and water. If soap and water are not available, use a hand insurance specialist. Others in your home should wash their hands as well. Hands should be washed: ? After using the toilet or changing a diaper. ? Before preparing, cooking, or serving food. ? While caring for a sick person. ? While visiting someone in a hospital. ? Drink enough fluid to keep your pee (urine) pale yellow. ? Rest at home while you get better. ? Take a warm bath to help with any burning or pain from having diarrhea. ? Watch your condition for any changes. ? Keep all follow-up visits as told by your doctor. This is important. Contact a doctor if: ? You have a fever. ? Your diarrhea gets worse. ? You have new symptoms. ? You cannot keep fluids down. ? You feel light-headed or dizzy. ? You have a headache. ? You have muscle cramps. Get help right away if: ? You have chest pain. ? You feel very weak or you pass out (faint). ? You have bloody or black poop or poop that looks like tar. ? You have very bad pain, cramping, or bloating in your belly (abdomen). ? You have trouble breathing or you are breathing very quickly. ? Your heart is beating very quickly. ? Your skin feels cold and clammy. ? You feel confused. ? You have signs of losing too much water in your body, such as: ? Dark pee, very little pee, or no pee. ? Cracked lips. ? Dry mouth. ? Sunken eyes. ? Sleepiness. ? Weakness. Summary ? Diarrhea is when you pass loose and watery poop (stool) often. ? Diarrhea can make you feel weak and cause you to lose water in your body (get dehydrated). ? Take an ORS (oral rehydration solution). This is a drink that is sold at pharmacies and stores. ? Eat bland, brfg-zq-fraqgy foods in small amounts as you are able. ? Contact a doctor if your condition gets worse. Get help right away if you have signs that you have lost too much water in your body. This information is not intended to replace advice given to you by your health care provider. Make sure you discuss any questions you have with your health care provider. Document Revised: 03/08/2022 Document Reviewed: 03/08/2022 Elsevier Patient Education ?? 2022 [employer] Tests Performed Medications and Immunizations Administered Given Dextrose 10% in Water, 100 mL, IV ondansetron, 4 mg, IV Push sodium chloride 0.9% bolus, 1000 mL, Hydration Bolus Toradol, 15 mg, IV Push Lab Test Name Test Result Date/Time WBC 7.7 x10^3/mcL 10/11/2023 19:50 EST RBC 4.7 x10^6/mcL 10/11/2023 19:50 EST Hgb 13.9 g/dL 10/11/2023 19:50 EST Hct 43.2 % 10/11/2023 19:50 EST MCV 91.3 fL 10/11/2023 19:50 EST MCH 29.4 pg 10/11/2023 19:50 EST MCHC 32.2 g/dL 10/11/2023 19:50 EST RDW-CV 13.9 % 10/11/2023 19:50 EST Platelets 273 x10^3/mcL 10/11/2023 19:50 EST Segs Man 86 % 10/11/2023 19:50 EST Lymph Man 7 % 10/11/2023 19:50 EST [place] Man 3 % 10/11/2023 19:50 EST Eos Man 3 % 10/11/2023 19:50 EST Baso Man 0 % 10/11/2023 19:50 EST Band Man 1 % 10/11/2023 19:50 EST Abs Neut Man 6.7 x10^3/mcL 10/11/2023 19:50 EST RBC Morph Normal 10/11/2023 19:50 EST Slide Review Man Diff 10/11/2023 19:50 EST Sodium Level 139 mmol/L 10/11/2023 19:50 EST Potassium Level 4.5 mmol/L 10/11/2023 19:50 EST Chloride Level 99 mmol/L 10/11/2023 19:50 EST CO2 30 mmol/L 10/11/2023 19:50 EST Alk Phos 257 unit/L 10/11/2023 19:50 EST AST 183 unit/L 10/11/2023 19:50 EST ALT 238 unit/L 10/11/2023 19:50 EST BUN 19 mg/dL 10/11/2023 19:50 EST Glucose Level 81 mg/dL 10/11/2023 19:50 EST Creatinine Level 0.74 mg/dL 10/11/2023 19:50 EST eGFR AA 114 10/11/2023 19:50 EST eGFR Non-AA 114 10/11/2023 19:50 EST Calcium Level 9.5 mg/dL 10/11/2023 19:50 EST Protein Total 8.4 g/dL 10/11/2023 19:50 EST Albumin Level 3.7 g/dL 10/11/2023 19:50 EST Bilirubin Total 0.5 mg/dL 10/11/2023 19:50 EST Lipase Level 16 unit/L 10/11/2023 19:50 EST U hCG Ql NEGATIVE 10/11/2023 19:50 EST UA Color YELLOW. 10/11/2023 19:50 EST UA Appear CLEAR. 10/11/2023 19:50 EST UA Glucose NEGATIVE 10/11/2023 19:50 EST UA Bili NEGATIVE 10/11/2023 19:50 EST UA Ketones NEGATIVE 10/11/2023 19:50 EST UA Spec Grav 1.010 10/11/2023 19:50 EST UA Blood NEGATIVE 10/11/2023 19:50 EST UA pH 6.5 10/11/2023 19:50 EST UA Protein NEGATIVE 10/11/2023 19:50 EST UA Urobilinogen 0.2 Uro 10/11/2023 19:50 EST UA Nitrite NEGATIVE 10/11/2023 19:50 EST UA Leuk Est NEGATIVE 10/11/2023 19:50 EST Patient/Air Shovel Operator Signature Patient Name:MARIELOS MIRAMONTES I have received this information and my questions have been answered. Patient/Air Shovel Operator Name: Patient/Air Shovel Operator Signature: Relationship to Patient: Witness Name/Signature: Date: Electronically Signed on: 10/11/2023 22:29 ESTSigned by:ALMA Discharge summary * Ginette Day H: PERFORM Event Display: Discharge Summary Authored Date: [id number] Patient Care team information Care Team Personnel Name: Jamila Archer MD Position: Physician Member Role: Informed Provider Address: Address: [address] [place] [address], [place] [address] Name: Shila Krueger Position: Ambulatory - RN/COUNTY DIRECTOR (Michael) Member Role: Director Meetings Care Team Related Persons Name: EMILIO PATHAK Address: Home [address] [place] [phone] Name: LAUREN JONES Name: ELLIS GRAMAJO Address: Home [address] [place], [id number]
--- OUTSIDE RECORDS SUMMARY | 2024-02-29 19:08 | XMS_ITS | Continuity of Care Document ---
Author Name Unknown Organization [facility] Address [address] [place] [address] Care Team Providers Care Scientific Glass Blower Name Role Phone Jamila Archer Primary Care Physician Encounter NCTY_MI Date(s): 10/27/22 - 10/27/[address] [id number] Encounter Diagnosis Hypoglycemia(Discharge Diagnosis) - 10/27/22 Discharge Disposition: Home or Self Care Attending Physician: Nikki Wilson MD Admitting Physician: Nikki Wilson MD Allergies, Adverse Reactions, Alerts Substance Reaction Severity Status morphine Unknown Active Assessment and Plan Future Appointments Future Scheduled Tests Laboratory* SARS-CoV-2 (COVID-19)/Flu/RSV ([facility]) 08/21/22 Functional Status 10/27/22 Recent Travel History No recent travel Other exposure to Infectious Disease Non e Immunizations Given and Recorded Vaccine Date Status [...] instructions, # 500 EA, 0 Refill(s), Pharmacy: [facility] Start Date: 09/08/22 Status: Ordered ergocalciferol 1.25 mg (50,000 intl units) oral capsule 50,000 IntlUnit = 1 cap, Oral, every week Start Date: 03/02/22 Status: Ordered fenofibrate 30 mg oral capsule 30 mg = 1 cap, Oral, Daily, # 90 cap, 3 Refill(s), Pharmacy: [facility], 150, cm, 10/27/22 6:33:00 EST, Height/Length Dosing, 127, kg, 10/27/22 6:33:00 EST, Weight Dosing Start Date: 10/27/22 Status: Ordered fenofibrate 40 mg oral tablet 40 mg = 1 tab, Oral, Daily, # 30 tab, 0 Refill(s), Pharmacy: [place] [id number], 150, cm, 10/27/22 6:33:00 EST, Height/Length Dosing, [...] dose., # 90 tab, 3 Refill(s), Pharmacy: [facility] 415, 150, cm, 10/27/22 6:33:00 EST, Height/Length D... Start Date: 10/27/22 Status: Ordered levothyroxine 125 mcg (0.125 mg) oral tablet 125 mcg = 1 tab, Oral, Daily, Take one tablet by mouth with water a half hour before eating or taking any other medication. Take with 100 mcg dose., # 90 tab, 3 Refill(s), Pharmacy: [id number], 150, cm, 10/27/22 6:33:00 EST, Height/Length D... Start Date: 10/27/22 Status: Ordered lisinopril 10 mg oral tablet 10 mg = 1 tab, Oral, Daily, for 90 days- dose change 10/20/2021, # 90 tab, 3 Refill(s), Pharmacy: [facility] 4156, 150, cm, 08/09/22 1:15:00 EST, Height/Length Dosing, 127.01, kg, 08/09/22 1:15:00 EST, Weight Dosing Start Date: 10/05/22 Status: Ordered multivitamin adult, oral tablet 1 tab, Oral, Daily, # 90 tab, 0 Refill(s), other reason (Rx) Start Date: 03/24/22 Status: Ordered ONETOUCH VERIO FLEX KIT ONETOUCH VERIO FLEX KIT, 1 each by [facility]. (non drug: combo route) route 4 times daily. Start Date: 03/02/22 Status: Ordered ONETOUCH VERIO MARLENE ONETOUCH VERIO MARLENE, Test blood glucose withone new test strip 4 times daily Start Date: 03/02/22 Status: Ordered torsemide 20 mg oral tablet 1 tab, Oral, TID, PRN IF NEEDED, # 90 tab, 1 Refill(s), Pharmacy: [id number], 150, cm, 08/09/22 1:15:00 EST, [...] hr, # 30 tab, 0 Refill(s), Pharmacy: [facility], 150, cm, 226:18:00 EDT, Height/Length Dosing, 129, kg, 03/14/22 6:18:00 EDT, Weight Dosing Start Date: 03/23/22 Status: Ordered Mental Status 10/27/22 Eye Opening Response [place] To pain Best Verbal Response [place] Inappropria te words Best Motor Response [place] Localizes to noxious stimuli [place] Coma Score 10 Problem List Condition Confirmation Course Effective Dates [...] tonsillectomy 2003; repeat adenoidectomy 2013 3with adenoidectomy Results Laboratory List Name Date Glucose POCT 10/27/22 Glucose POCT 10/27/22 Basic Metabolic Panel 10/27/22 Blood Gas Venous 10/27/22 CBC w/ Diff 10/27/22 Lactic Acid 10/27/22 Automated Diff 10/27/22 Glucose POCT 10/27/22 Most recent to oldest [Reference Range]: 1 2 3 WBC [5.0-10.0 x10^3/mcL] 8.6 x10^3/mcL (10/27/22 6:33 AM) RBC [4.1-5.3 x10^6/mcL] 4.6 x10^6/mcL (10/27/22 6:33 AM) Neutro Auto [40.0-75.0 %] 52.5 % (10/27/22 6:33 AM) Lymph Auto [20.0-50.0 %] 38.8 % (10/27/22 6:33 AM) [place] Auto [2.0-15.0 %] 4.1 % (10/27/22 6:33 AM) Basophil Auto [0.0-1.0 %] 0.5 % (10/27/22 6:33 AM) BUN [7-18 mg/dL] 24 mg/dL *HI* (10/27/22 6:33 AM) Glucose POC [74-106 mg/dL] 107 mg/dL *HI* (10/27/22 7:18 AM) 101 mg/dL (10/27/22 6:34 AM) 20 mg/dL *CRIT* (10/27/22 6:20 AM) Whole Blood Glucose - Manual Entry [74-106 mmol/L] 107 mmol/L *HI* (10/27/22 7:19 AM) Glucose Level [74-106 mg/dL] 139 mg/dL *HI* (10/27/22 6:33 AM) Potassium Level [3.5-5.1 mmol/L] 3.9 mmol/L (10/27/22 6:33 AM) MCV [80.0-96.0] 93.7 (10/27/22 6:33 AM) CO2 Total Venous 34 mmol/L *NA* (10/27/22 6:33 AM) HCO3 Venous [22-30 mmol/L] 32 mmol/L *HI* (10/27/22 6:33 AM) MCHC [31.0-35.0 g/dL] 32.1 g/dL (10/27/22 6:33 AM) Sodium Level [136-145 mmol/L] 137 mmol/L (10/27/22 6:33 AM) Hct [37.0-47.0 %] 43.0 % (10/27/22 6:33 AM) Calcium Level [8.5-10.1 mg/dL] 9.3 mg/dL (10/27/22 6:33 AM) MCH [26.0-32.0 pg] 30.1 pg (10/27/22 6:33 AM) Neutro Absolute 4.5 x10^3/mcL *NA* (10/27/22 6:33 AM) Hgb [12.0-16.0 g/dL] 13.8 g/dL (10/27/22 6:33 AM) pCO2 Mirza [33-47 mmHg] 62 mmHg *HI* (10/27/22 6:33 AM) Platelets [130-450 x10^3/mcL] 322 x10^3/mcL (10/27/22 6:33 AM) CO2 [21-32 mmol/L] 31 mmol/L (10/27/22 6:33 AM) Lactic Acid Lvl [0.7-2.1 mmol/L] 1.4 mmol/L (10/27/22 6:33 AM) pO2 Mirza 25 mmHg *NA* (10/27/22 6:33 AM) pH Mirza [7.32-7.43 pH unit(s)] 7.32 pH unit(s) (10/27/22 6:33 AM) O2 Sat Mirza 38 % *NA* (10/27/22 6:33 AM) eGFR Non-AA [>=60] 106 (10/27/22 6:33 AM) eGFR AA [>=60] 106 (10/27/22 6:33 AM) Base Excess Venous 3.5 mmol/L *NA* (10/27/22 6:33 AM) Chloride Level [98-107 mmol/L] 97 mmol/L *LOW* (10/27/22 6:33 AM) RDW-CV [11.7-17.0 %] 14.5 % (10/27/22 6:33 AM) Imm Gran Auto [0.0-0.9 %] 0.5 % (10/27/22 6:33 AM) Creatinine Level [0.55-1.02 mg/dL] 0.79 mg/dL (10/27/22 6:33 AM) Eos, Auto [1.0-6.0 %] 3.6 % (10/27/22 6:33 AM) Vital Signs Most recent to oldest [Reference Range]: 1 2 3 Temperature Temporal Artery [36-38 Deg C] 36.9 Deg C (10/27/22 8:58 AM) 36.8 Deg C (10/27/22 6:27 AM) Peripheral Pulse Rate [60-100 bpm] 97 bpm (10/27/22 9:15 AM) 97 bpm (10/27/22 9:00 AM) 94 bpm (10/27/22 8:58 AM) Heart Rate Monitored [60-100 bpm] 97 bpm (10/27/22 9:15 AM) 94 bpm (10/27/22 9:00 AM) 94 bpm (10/27/22 8:58 AM) Respiratory Rate [12-24 br/min] 15 br/min (10/27/22 9:15 AM) 21 br/min (10/27/22 9:00 AM) 27 br/min *HI* (10/27/22 8:58 AM) Blood Pressure [90-140/60-90 mmHg] 104/53mmHg (10/27/22 9:00 AM) 104/53mmHg (10/27/22 8:58 AM) 120/79mmHg (10/27/22 7:20 AM) Weight Dosing 127.00 kg (10/27/22 6:33 AM) Weight Estimated 127.00 kg (10/27/22 6:27 AM) Height/Length Dosing 150.000 cm (10/27/22 6:33 AM) Height/Length Estimated 150.000 cm (10/27/22 6:27 AM) Social History Social History Type Response Tobacco Never tobacco user T obacco Use:. Sex Female Hospital Discharge Instructions Patient Education 10/27/2022 08:11:05 Blood Glucose Monitoring, Adult Blood Glucose Monitoring, Adult Monitoring your blood sugar (glucose) is an important part of managing your diabetes. Blood glucosemonitoring involves checking your blood glucose as often as directed and keeping a log or record ofyour results over time. Checking your blood glucose regularly and keeping a blood glucose log can: ??? Help you and your health care provider adjust your diabetes management plan as needed, including your medicines or insulin. ??? Help you understand how food, exercise, illnesses, and medicines affect your blood glucose. ??? Let you know what your blood glucose is at any time. You can quickly find out if you have low blood glucose (hypoglycemia) or high blood glucose (hyperglycemia). Your health care provider will set individualized treatment goals for you. Your goals will be basedon your age, other medical conditions you have, and how you respond to diabetes treatment. Generally, the goal of treatment is to maintain the following blood glucose levels: ??? Before meals (preprandial): 80???130 mg/dL (4.4???7.2 mmol/L). ??? After meals (postprandial): below 180 mg/dL (10 mmol/L). ??? A1C level: less than 7%. Supplies needed: ??? Blood glucose meter. ??? Test strips for your meter. Each meter has its own strips. You must use the strips that came with your meter. ??? A needle to prick your finger (lancet). Do not use a lancet more than one time. ??? A device that holds the lancet (lancing device). ??? A journal or log book to write down your results. How to check your blood glucose Checking your blood glucose 1. Wash your hands for at least 20 seconds with soap and water. 2. Prick the side of your finger (not the tip) with the lancet. Do not use the same finger consecutively. 3. Gently rub the finger until a small drop of blood appears. 4. Follow instructions that come with your meter for inserting the test strip, applying blood to the strip, and using your blood glucose meter. 5. Write down your result and any notes in your log. Using alternative sites Some meters allow you to use areas of your body other than your finger (alternative sites) to test your blood. The most common alternative sites are the forearm, the thigh, and the palm of your hand. Alternative sites may not be as accurate as the fingers because blood flow is slower in those areas. This means that the result you get may be delayed, and it may be different from the result that you would get from your finger. Use the finger only, and do not use alternative sites, if: ??? You think you have hypoglycemia. ??? You sometimes do not know that your blood glucose is getting low (hypoglycemia unawareness). General tips and recommendations Blood glucose log ??? Every time you check your blood glucose, write down your result. Also write down any notes about things that may be affecting your blood glucose, such as your diet and exercise for the day. This information can help you and your health care provider: ??? Look for patterns in your blood glucose over time. ??? Adjust your diabetes management plan as needed. ??? Check if your meter allows you to download your records to a computer or if there is an trenton forthe meter. Most glucose meters store a record of glucose readings in the meter. If you have type 1 diabetes: ??? Check your blood glucose 4 or more times a day if you are on intensive insulin therapy with multiple daily injections (MDI) or if you are using an insulin pump. Check your blood glucose: ??? Before every meal and snack. ??? Before bedtime. ??? Also check your blood glucose: ??? If you have symptoms of hypoglycemia. ??? After treating low blood glucose. ??? Before doing activities that create a risk for injury, like driving or using machinery. ??? Before and after exercise. ??? Two hours after a meal. ??? Occasionally between 2:00 a.m. and 3:00 a.m., as directed. ??? You may need to check your blood glucose more often, 6???10 times per day, if: ??? You have diabetes that is not well controlled. ??? You are ill. ??? You have a history of severe hypoglycemia. ??? You have hypoglycemia unawareness. If you have type 2 diabetes: ??? Check your blood glucose 2 or more times a day if you take insulin or other diabetes medicines. ??? Check your blood glucose 4 or more times a day if you are on intensive insulin therapy. Occasionally, you may also need to check your glucose between 2:00 a.m. and 3:00 a.m., as directed. ??? Also check your blood glucose: ??? Before and after exercise. ??? Before doing activities that create a risk for injury, like driving or using machinery. ??? You may need to check your blood glucose more often if: ??? Your medicine is being adjusted. ??? Your diabetes is not well controlled. ??? You are ill. General tips ??? Make sure you always have your supplies with you. ??? After you use a few boxes of test strips, adjust (calibrate) your blood glucose meter by following instructions that came with your meter. ??? If you have questions or need help, all blood glucose meters have a 24-hour hotline phone number available that you can call. Also contact your health care provider with questions or concerns youmay have. Where to find more information ??? The [place] [employer]: www.diabetes.org ? ? The Association of Diabetes Care & Education Specialists: www.diabeteseducator.org Contact a health care provider if: ??? Your blood glucose is at or above 240 mg/dL (13.3 mmol/L) for 2 days in a row. ??? You have been sick or have had a fever for 2 days or longer, and you are not getting better. ??? You have any of the following problems for more than 6 hours: ??? You cannot eat or drink. ??? You have nausea or vomiting. ??? You have diarrhea. Get help right away if: ??? Your blood glucose is lower than 54 mg/dL (3 mmol/L). ??? You become confused, or you have trouble thinking clearly. ??? You have difficulty breathing. ??? You have moderate or large ketone levels in your urine. These symptoms may represent a serious problem that is an emergency. Do not wait to see if the symptoms will go away. Get medical help right away. Call your local emergency services (911 in the [place] Do not drive yourself to the hospital. Summary ??? Monitoring your blood glucose is an important part of managing your diabetes. ??? Blood glucose monitoring involves checking your blood glucose as often as directed and keeping a log or record of your results over time. ??? Your health care provider will set individualized treatment goals for you. Your goals will be based on your age, other medical conditions you have, and how you respond to diabetes treatment. ??? Every time you check your blood glucose, write down your result. Also, write down any notes about things that may be affecting your blood glucose, such as your diet and exercise for the day. This information is not intended to replace advice given to you by your health care provider. Make sure you discuss any questions you have with your health care provider. Document Revised: 05/25/2021 Document Reviewed: 05/25/2021 [employer] Patient Education ?? 2021 [employer]. manager unit Note * Caitlin León: MODIFY, PERFORM Event Display: Case Management Note Authored Date: [id number] See notes from yesterday 10/26. Pt had sleep study last night - was unresponsive with b/g 20. Requesting a dexacom G6 meter. Pt stated in the past this was declined and needed a PA. TC to Medicaid - spoke with Vikash - dexacom is covered it needs to go under prescription vs DME. TC to [facility] - spoke with Lydia - the order needs to be 1 dexacom G6 ware tester, 1 transmitter kit and 1 sensor (which has 3 senors). TC to [facility] - pt has a video call with Eufemia Reyes on 10/31 @ 11 am - the was the soonest available. Her original apt was in December. Dexacom does need PA according to her insurance company. This has been filled out and faxed by withER notes from the last 3 days along with last provider note. Marked as urgent. Pt to go to PCP office this afternoon to see a provider and get training hopefully on Dexacom. According to Jaida at clinical operations department the PA should not take that long. * Caitlin León: PERFORM Event Display: Case Management Note Authored Date: [id number] PA approved. TC to Xi - they are all set on their side - they will need 30 min to get it together. TC to pt - she is aware to greens picker at 4 and go back to PCP office. Leslie updated - she will relay to Shila. Physician Emergency department Note * Ritkia Duke MD: PERFORM Event Display: ED Note Physician Authored Date: [id number] MARIELOS MIRAMONTES :1995 Age:27 years Sex:Female Visit Date:10/27/2022 Primary Care Physician: Jamila Archer MD Basic Information Time Seen: Nikki Wilson MD / 10/27/2022 06:28 Chief Complaint Pt was in sleep lab found unresponsive, hypotensive, hypoxic and diaphoretic. RNs from ED arrived; glucose 20. IV access started and 1 amp D50 given. Pt able to arrose and moved to ED. History Of Present Illness: I took over for the care of this patient at 7 AM this morning.?? 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 The patient received 1 amp of D50 prior to arriving to the ED.?? Per report she was alert and oriented??on arrival.?? She was given orange juice and a sandwich in addition to the amp of D50.?? Her labs??are all reassuring.?? She is being observed??a little longer until??okay for discharge. On reevaluation pt is fully awake and alert. She feels well and back to baseline. She asked for a glucose sensor that she has had difficulties getting through her PCP and endo at [facility]. Our case folder spoke with her and was able to order one that she will greens picker at the pharmacy. She was instructed to stop taking Lantus at night and call her nitrogen operator at [facility] as soon as possible.?? Discharge instructions and return precautions discussed, all questions answered. Physical Exam Vitals & Measurements T:??36.9?C ??(Temporal Artery)?? HR:??94??(Peripheral)?? HR:??94??(Monitored)?? RR:??27?? BP:??104/53?? SpO2:??98%?? HT:??150.000??cm?? WT:??127.00??kg??(Estimated)?? Pain Score:??0?? O2 Flow Rate:??3?? O2 Therapy:??Nasal cannula?? Procedure No Qualifying Data Assessment/Plan 1.??Hypoglycemia??E16.2 Ordered: Discharge Patient, 10/27/22 9:20:00 EST, Constant Indicator ?? Patient Education Blood Glucose Monitoring, Adult Medication Reconciliation Unchanged amoxicillin-clavulanate (amoxicillin-clavulanate 875 mg-125 mg oral tablet)1 tab Oral (given by mouth) every 12 hours for 7 Days. Refills: 0. ?? ascorbic acid (Vitamin C 500 mg oral tablet)1 tab Oral (given by mouth) every day. Refills: 0. ?? atorvastatin (atorvastatin 40 mg oral tablet)1 tab Oral (given by mouth) every day. ?? cetirizine (ZyrTEC 10 mg oral tablet)1 tab Oral (given by mouth) every day. Refills: 3. ?? cetirizine-pseudoephedrine (ZyrTEC-D 5 mg-120 mg oral tablet, extended release)1 tab Oral (given bymouth) every 24 hours. Refills: 0. ?? clotrimazole topical (clotrimazole 1% topical cream)1 Application Topical (on the skin) 2 times a day. Refills: 0. ?? dulaglutide (Trulicity Pen 1.5 mg/0.5 mL subcutaneous solution)every week. ?? Durable Medical Equipment for Prescription (B-D UF III SHORT PEN NEED MIS)Use one new pen needle for each insulin injection 5 to 7 times per day as directed in case of pump malfunction. Refills: 0. ?? ergocalciferol (ergocalciferol 1.25 mg (50,000 intl units) oral capsule)1 Capsules Oral (given by mouth) every week. ?? fluconazole (Diflucan 150 mg oral tablet)1 tab Oral (given by mouth) once. May repeat second tab in2 days if needed.. Refills: 0. ?? glucagon (Glucagon Emergency Kit for Low Blood Sugar)follow instructions per kit; as needed low blood sugar. ?? insulin regular (HumuLIN R KwikPen (Concentrated) 500 units/mL subcutaneous solution)200 Units Intradermal (in the skin) before meals. correction facter of 50 units. ?? levothyroxine (Euthyrox 200 mcg (0.2 mg) oral tablet)1 tab Oral (given by mouth) every day. Refills: 0. ?? levothyroxine (Euthyrox 25 mcg (0.025 mg) oral tablet)Take 1 tablet by mouth once daily. Take one 25 MCG tablet with one 200 MCG tablet for a total daily dose of 225 MCG. ?? levothyroxine (levothyroxine 200 mcg (0.2 mg) oral tablet)30 EA, TAKE 1 TABLET BY MOUTH ONCE DAILY.TAKE ONE 200 MCG TABLET WITH ONE 25 MCG TABLET FOR A TOTAL DOSE OF 225 MCG.. ?? lisinopril (lisinopril 10 mg oral tablet)1 tab Oral (given by mouth) every day. for 90 days- dose change 10/20/2021. Refills: 3. ?? multivitamin (multivitamin adult, oral tablet)1 tab Oral (given by mouth) every day. Refills: 0. ?? Other Prescription (Profex FLEX KIT)1 each by [facility]. (non drug: combo route) route 4 times daily.. ?? Other Prescription (ONETOUCH VERIO MARLENE)Test blood glucose withone new test strip 4 times daily. ?? silver sulfADIAZINE topical (Silvadene 1% topical cream)1 Application Topical (on the skin) every day. Refills: 0. ?? torsemide (torsemide 20 mg oral tablet)1 tab Oral (given by mouth) 3 times a day as needed IF NEEDED. Refills: 1. Problem List/Past Medical History Ongoing Adult health examination Autoimmune thyroiditis Developmental disorder Diabetic ketoacidosis Erythroderma Hyperlipidemia Hypertensive disorder Idiopathic sleep related non-obstructive alveolar hypoventilation Intermenstrual bleeding - irregular Irregular sleep-wake pattern Kidney disease Localized edema Obesity Obstructive sleep apnea syndrome Severe obesity Tachycardia Tension-type headache Historical No qualifying data Procedure/Surgical History ???ORIF - Open reduction and internal fixation of fracture (12/22/2020)???Adenoidectomy (09/10/2013)???Tonsillectomy (09/10/2003) Allergies morphine Social History Alcohol Current, 1-2 times [...] Mother, Father and Grandfather (P). Lab Results Blood Gases?? LATEST RESULTS?? HISTORICAL RESULTS?? pH Mirza?? 10/27/22 06:33?? 7.32?? 10/26/22?? 7.38?? pCO2 Mirza?? 10/27/22 06:33?? 62 ??High?? 10/26/22?? 55 ??High?? pO2 Mirza?? 10/27/22 06:33?? 25?? 10/26/22?? 21?? HCO3 Venous?? 10/27/22 06:33?? 32 ??High?? 10/26/22?? 33 ??High?? O2 Sat Mirza?? 10/27/22 06:33?? 38?? 10/26/22?? 33?? CO2 Total Venous?? 10/27/22 06:33?? 34?? 10/26/22?? 34?? Base Excess Venous?? 10/27/22 06:33?? 3.5?? 10/26/22?? 5.9? CBC and Differential?? LATEST RESULTS?? HISTORICAL RESULTS?? WBC?? 10/27/22 06:33?? 8.6?? 10/26/22?? 8.4?? RBC?? 10/27/22 06:33?? 4.6?? 10/26/22?? 4.6?? Hgb?? 10/27/22 06:33?? 13.8?? 10/26/22?? 13.8?? Hct?? 10/27/22 06:33?? 43.0?? 10/26/22?? 42.8?? MCV?? 10/27/22 06:33?? 93.7?? 10/26/22?? 93.0?? MCH?? 10/27/22 06:33?? 30.1?? 10/26/22?? 30.0?? MCHC?? 10/27/22 06:33?? 32.1?? 10/26/22?? 32.2?? RDW-CV?? 10/27/22 06:33?? 14.5?? 10/26/22?? 14.6?? Platelets?? 10/27/22 06:33?? 322?? 10/26/22?? 355?? Neutro Auto?? 10/27/22 06:33?? 52.5?? 10/26/22?? 61.0?? Lymph Auto?? 10/27/22 06:33?? 38.8?? 10/26/22?? 32.3?? [place] Auto?? 10/27/22 06:33?? 4.1?? 10/26/22?? 3.4?? Eos, Auto?? 10/27/22 06:33?? 3.6?? 10/26/22?? 2.4?? Basophil Auto?? 10/27/22 06:33?? 0.5?? 10/26/22?? 0.5?? Imm Gran Auto?? 10/27/22 06:33?? 0.5?? 10/26/22?? 0.4?? Neutro Absolute?? 10/27/22 06:33?? 4.5?? 10/26/22?? 5.1? Routine Chemistry?? LATEST RESULTS?? HISTORICAL RESULTS?? Sodium Level?? 10/27/22 06:33?? 137?? 10/26/22?? 137?? Potassium Level?? 10/27/22 06:33?? 3.9?? 10/26/22?? 3.9?? Chloride Level?? 10/27/22 06:33?? 97 ??Low?? 10/26/22?? 96 ??Low?? CO2?? 10/27/22 06:33?? 31?? 10/26/22?? 31?? BUN?? 10/27/22 06:33?? 24 ??High?? 10/26/22?? 32 ??High?? Glucose Level?? 10/27/22 06:33?? 139 ??High?? 10/26/22?? 55 ??Low?? Creatinine Level?? 10/27/22 06:33?? 0.79?? 10/26/22?? 1.03 ??High?? eGFR AA?? 10/27/22 06:33?? 106?? 10/26/22?? 77?? eGFR Non-AA?? 10/27/22 06:33?? 106?? 10/26/22?? 77?? Calcium Level?? 10/27/22 06:33?? 9.3?? 10/26/22?? 9.7?? Lactic Acid Lvl?? 10/27/22 06:33?? 1.4? Glucose POC?? 10/27/22 07:18?? 107 ??High?? 10/26/22?? 132 ??High? Point of Care?? LATEST RESULTS?? Whole Blood Glucose - Manual Entry?? 10/27/22 07:19?? 107 mmol/L ??High? Electronically Signed on 10/27/22 09:27 AM Ritika Duke MD * Nikki Wilson MD: PERFORM Event Display: ED Note Physician Authored Date: [id number] MARIELOS MIRAMONTES :1995 Age:27 years Sex:Female Visit Date:10/27/2022 Primary Care Physician: Jaimla Archer MD Basic Information Time Seen: Nikki Wilson MD / 10/27/2022 06:28 Chief Complaint Pt was in sleep lab found unresponsive, hypotensive, hypoxic and diaphoretic. RNs from ED arrived; glucose 20. IV access started and 1 amp D50 given. Pt able to arrose and moved to ED. History Of Present Illness: Patient was in the sleep lab doing a sleep study??patient??was hard to arouse patient's blood sugarwas found to be 20.?? Emergency department nursing went to??evaluate and bring patient to the emergency department patient had an IV started??1 amp of D50 was given??patient became more responsive and brought to the emergency department.?? Patient reports she took half of her usual long- acting insulin??last night??of 20 units of Lantus. ??Patient had been in the emergency department yesterday??isalso said to have episode??being hard to awaken.?? Patient denies any fevers chills??ear nose or throat pain chest pain cough??nausea or vomiting??patient does report that??her pants are wet??but she has been incontinent during episode. Review of Systems: see hpi for ros Physical Exam Vitals & Measurements T:??36.8?C ??(Temporal Artery)?? HR:??95??(Peripheral)?? RR:??22?? BP:??106/71?? SpO2:??93%?? HT:??150.000??cm?? WT:??127.00??kg??(Estimated)?? O2 Flow Rate:??3?? O2 Therapy:??Nasal cannula?? General: Alert and oriented, well nourished,?No??acute distress Eye: PER?Normal??conjunctiva,??No??scleral icterus HENT: Normocephalic,??nontraumatic??Normal hearing Lungs: Clear to auscultation,?Non-labored?? respiration Heart:?Normal?? rate,?Regular??rhythm,?No??murmur,?No??gallop,?No??edema Chest: wall excursion wnl no abnormal movements no obvious deformities Abdomen: Soft, non-tender, non-distended,No??masses Musculoskeletal:?Normal?? range of motion and strength,?No??tenderness,?No??swelling Skin: Skin is warm, dry and pink,?No??rashes,?No??lesions Neurologic: Awake, alert and oriented x4 Psychiatric: Cooperative, appropriate mood and affect Medical Decision Making: For MDM please see under assessment and plan Procedure No Qualifying Data Assessment/Plan 1.??Hypoglycemia??E16.2 Patient has had 1 amp of D50??patient has drank some orange juice??and has eaten a sandwich??patient blood sugar will be monitored signout given to Dr. Duke??and expect patient will be able to be discharged. Orders: CV EKG ED, 10/27/22 6:28:00 EST, Stat, Reason: Chest Pain, Stop date and time 10/27/22 6:28:00 EST,ORD_SET_REQ_DT_RANGE, [facility] Internal Person Id Medication Reconciliation Unchanged amoxicillin-clavulanate (amoxicillin-clavulanate 875 mg-125 mg oral tablet)1 tab Oral (given by mouth) every 12 hours for 7 Days. Refills: 0. ?? ascorbic acid (Vitamin C 500 mg oral tablet)1 tab Oral (given by mouth) every day. Refills: 0. ?? atorvastatin (atorvastatin 40 mg oral tablet)1 tab Oral (given by mouth) every day. ?? cetirizine (ZyrTEC 10 mg oral tablet)1 tab Oral (given by mouth) every day. Refills: 3. ?? cetirizine-pseudoephedrine (ZyrTEC-D 5 mg-120 mg oral tablet, extended release)1 tab Oral (given bymouth) every 24 hours. Refills: 0. ?? clotrimazole topical (clotrimazole 1% topical cream)1 Application Topical (on the skin) 2 times a day. Refills: 0. ?? dulaglutide (Trulicity Pen 1.5 mg/0.5 mL subcutaneous solution)every week. ?? Durable Medical Equipment for Prescription (B-D UF III SHORT PEN NEED MIS)Use one new pen needle for each insulin injection 5 to 7 times per day as directed in case of pump malfunction. Refills: 0. ?? ergocalciferol (ergocalciferol 1.25 mg (50,000 intl units) oral capsule)1 Capsules Oral (given by mouth) every week. ?? fluconazole (Diflucan 150 mg oral tablet)1 tab Oral (given by mouth) once. May repeat second tab in2 days if needed.. Refills: 0. ?? glucagon (Glucagon Emergency Kit for Low Blood Sugar)follow instructions per kit; as needed low blood sugar. ?? insulin regular (HumuLIN R KwikPen (Concentrated) 500 units/mL subcutaneous solution)200 Units Intradermal (in the skin) before meals. correction facter of 50 units. ?? levothyroxine (Euthyrox 200 mcg (0.2 mg) oral tablet)1 tab Oral (given by mouth) every day. Refills: 0. ?? levothyroxine (Euthyrox 25 mcg (0.025 mg) oral tablet)Take 1 tablet by mouth once daily. Take one 25 MCG tablet with one 200 MCG tablet for a total daily dose of 225 MCG. ?? levothyroxine (levothyroxine 200 mcg (0.2 mg) oral tablet)30 EA, TAKE 1 TABLET BY MOUTH ONCE DAILY.TAKE ONE 200 MCG TABLET WITH ONE 25 MCG TABLET FOR A TOTAL DOSE OF 225 MCG.. ?? lisinopril (lisinopril 10 mg oral tablet)1 tab Oral (given by mouth) every day. for 90 days- dose change 10/20/2021. Refills: 3. ?? multivitamin (multivitamin adult, oral tablet)1 tab Oral (given by mouth) every day. Refills: 0. ?? Other Prescription (ONETOUCH VERIO FLEX KIT)1 each by [facility]. (non drug: combo route) route 4 times daily.. ?? Other Prescription (ONETOUCH VERIO MARLENE)Test blood glucose withone new test strip 4 times daily. ?? silver sulfADIAZINE topical (Silvadene 1% topical cream)1 Application Topical (on the skin) every day. Refills: 0. ?? torsemide (torsemide 20 mg oral tablet)1 tab Oral (given by mouth) 3 times a day as needed IF NEEDED. Refills: 1. Problem List/Past Medical History Ongoing Adult health examination Autoimmune thyroiditis Developmental disorder Diabetic ketoacidosis Erythroderma Hyperlipidemia Hypertensive disorder Idiopathic sleep related non-obstructive alveolar hypoventilation Intermenstrual bleeding - irregular Irregular sleep-wake pattern Kidney disease Localized edema Obesity Obstructive sleep apnea syndrome Severe obesity Tachycardia Tension-type headache Historical No qualifying data Procedure/Surgical History ???ORIF - Open reduction and internal fixation of fracture (12/22/2020)???Adenoidectomy (09/10/2013)???Tonsillectomy (09/10/2003) Allergies morphine Social History Alcohol Current, 1-2 times [...] Mother, Father and Grandfather (P). Lab Results Blood Gases?? LATEST RESULTS?? HISTORICAL RESULTS?? pH Mirza?? 10/27/22 06:33?? 7.32?? 10/26/22?? 7.38?? pCO2 Mirza?? 10/27/22 06:33?? 62 ??High?? 10/26/22?? 55 ??High?? pO2 Mirza?? 10/27/22 06:33?? 25?? 10/26/22?? 21?? HCO3 Venous?? 10/27/22 06:33?? 32 ??High?? 10/26/22?? 33 ??High?? O2 Sat Mirza?? 10/27/22 06:33?? 38?? 10/26/22?? 33?? CO2 Total Venous?? 10/27/22 06:33?? 34?? 10/26/22?? 34?? Base Excess Venous?? 10/27/22 06:33?? 3.5?? 10/26/22?? 5.9? CBC and Differential?? LATEST RESULTS?? HISTORICAL RESULTS?? WBC?? 10/27/22 06:33?? 8.6?? 10/26/22?? 8.4?? RBC?? 10/27/22 06:33?? 4.6?? 10/26/22?? 4.6?? Hgb?? 10/27/22 06:33?? 13.8?? 10/26/22?? 13.8?? Hct?? 10/27/22 06:33?? 43.0?? 10/26/22?? 42.8?? MCV?? 10/27/22 06:33?? 93.7?? 10/26/22?? 93.0?? MCH?? 10/27/22 06:33?? 30.1?? 10/26/22?? 30.0?? MCHC?? 10/27/22 06:33?? 32.1?? 10/26/22?? 32.2?? RDW-CV?? 10/27/22 06:33?? 14.5?? 10/26/22?? 14.6?? Platelets?? 10/27/22 06:33?? 322?? 10/26/22?? 355?? Neutro Auto?? 10/27/22 06:33?? 52.5?? 10/26/22?? 61.0?? Lymph Auto?? 10/27/22 06:33?? 38.8?? 10/26/22?? 32.3?? [place] Auto?? 10/27/22 06:33?? 4.1?? 10/26/22?? 3.4?? Eos, Auto?? 10/27/22 06:33?? 3.6?? 10/26/22?? 2.4?? Basophil Auto?? 10/27/22 06:33?? 0.5?? 10/26/22?? 0.5?? Imm Gran Auto?? 10/27/22 06:33?? 0.5?? 10/26/22?? 0.4?? Neutro Absolute?? 10/27/22 06:33?? 4.5?? 10/26/22?? 5.1? Routine Chemistry?? LATEST RESULTS?? HISTORICAL RESULTS?? Sodium Level?? 10/27/22 06:33?? 137?? 10/26/22?? 137?? Potassium Level?? 10/27/22 06:33?? 3.9?? 10/26/22?? 3.9?? Chloride Level?? 10/27/22 06:33?? 97 ??Low?? 10/26/22?? 96 ??Low?? CO2?? 10/27/22 06:33?? 31?? 10/26/22?? 31?? BUN?? 10/27/22 06:33?? 24 ??High?? 10/26/22?? 32 ??High?? Glucose Level?? 10/27/22 06:33?? 139 ??High?? 10/26/22?? 55 ??Low?? Creatinine Level?? 10/27/22 06:33?? 0.79?? 10/26/22?? 1.03 ??High?? eGFR AA?? 10/27/22 06:33?? 106?? 10/26/22?? 77?? eGFR Non-AA?? 10/27/22 06:33?? 106?? 10/26/22?? 77?? Calcium Level?? 10/27/22 06:33?? 9.3?? 10/26/22?? 9.7?? Lactic Acid Lvl?? 10/27/22 06:33?? 1.4? Glucose POC?? 10/27/22 06:34?? 101?? 10/26/22?? 132 ??High? Electronically Signed on 10/27/22 07:05 AM Nikki Wilson MD Emergency department Discharge instructions * Ritika Duke MD: PERFORM Event Display: ED Discharge Information Authored Date: [id number] KULWINDER MARIELOS M :1995 Age:27 years Sex:Female Visit Date:10/27/2022 Primary Care Physician: Jamila Archer MD Discharge Instructions We would like to thank you for allowing us to assist you with your healthcare needs. The following includes patient education materials and information regarding your injury/illness. Diagnosis from Today's Visit Hypoglycemia Discharge Vitals Temperature??(Temporal Artery) 98.4 ??F (36.9 ??C) Heart Rate??(Peripheral) 94 Heart Rate??(Monitored) 94 Respiratory Rate?? 27 Blood Pressure?? 104/53?? Height?? 59.06 in (150.000 cm) Weight??(Estimated) 280.04 lb (127.00 kg) Allergies morphine What to Do Next Instructions from Your Care Team Please read all sensor instructions before use. Reach out to your nitrogen operator today for furtherinstructions but we advise you to stop taking Lantus at night and continue to monitor your glucose closely. Please return to the ED for any new or worsening symptoms. Upcoming Scheduled Appointments Sunday 2:30 PM EST ?? Sunday 9:00 AM EDT ?? You were treated today on an emergency [...] How Much When Why Instructions Next Dose Unchanged amoxicillin-clavulanate (amoxicillin-clavulanate 875 mg-125 mg oral tablet) 1 tab Oral (given by mouth) Every 12 hours Otitis media, left Duration: 7 Days Unchanged ascorbic acid (Vitamin C 500 mg oral tablet) 1 tab Oral (given by mouth) Every day Unchanged atorvastatin (atorvastatin 40 mg oral tablet) 1 tab Oral (given by mouth) Every day Unchanged cetirizine (ZyrTEC 10 mg oral tablet) 1 tab Oral (given by mouth) Every day Ear congestion Unchanged cetirizine-pseudoephedrine (ZyrTEC-D 5 mg-120 mg oral tablet, extended release) 1 tab Oral (given by mouth) Every 24 hours Ear infection Unchanged clotrimazole topical (clotrimazole 1% topical cream) 1 Application Topical (on the skin) 2 times a day Candidiasis of skin Unchanged dulaglutide (Trulicity Pen 1.5 mg/ 0.5 mL subcutaneous solution) Every week Unchanged Durable Medical Equipment for Prescription (B-D UF III SHORT PEN NEED MIS) See instructions Use one new pen needle for each insulin injection 5 to 7 times per day as directed in case of pump malfunction ?? Unchanged ergocalciferol (ergocalciferol 1.25 mg (50,000 intl units) oral capsule) 1 Capsules Oral (given by mouth) Every week Unchanged fluconazole (Diflucan 150 mg oral tablet) 1 tab Oral (given by mouth) Once Acute vaginitis May repeat second tab in 2 days if needed. ?? Unchanged glucagon (Glucagon Emergency Kit for Low Blood Sugar) See instructions hypoglycemia symptoms follow instructions per kit, As needed for low blood sugar ?? Unchanged insulin regular (HumuLIN R KwikPen (Concentrated) 500 units/ mL subcutaneous solution) 200 Units Intradermal (in the skin) Before meals correction facter of 50 units ?? Unchanged levothyroxine (Euthyrox 200 mcg (0.2 mg) oral tablet) 1 tab Oral (given by mouth) Every day Unchanged levothyroxine (Euthyrox 25 mcg (0.025 mg) oral tablet) See instructions Take 1 tablet by mouth once daily. Take one 25 MCG tablet with one 200 MCG tablet for a total dailydose of 225 MCG ?? Unchanged levothyroxine (levothyroxine 200 mcg (0.2 mg) oral tablet) 30 EA, TAKE 1 TABLET BY MOUTH ONCE DAILY. TAKE ONE 200 MCG TABLET WITH ONE 25 MCG TABLET FOR A TOTAL DOSE OF 225 MCG. ?? Unchanged lisinopril (lisinopril 10 mg oral tablet) 1 tab Oral (given by mouth) Every day for 90 days- dose change 2021 ?? Unchanged multivitamin (multivitamin adult, oral tablet) 1 tab Oral (given by mouth) Every day Unchanged Other Prescription (ONETOUCH VERIO FLEX KIT) 1 each by [facility]. (non drug: combo route) route 4 times daily. ?? Unchanged Other Prescription (ONETOUCH VERIO MARLENE) Test blood glucose withone new test strip 4 times daily ?? Unchanged silver sulfADIAZINE topical (Silvadene 1% topical cream) 1 Application Topical (on the skin) Every day Superficial burn of right hand Unchanged torsemide (torsemide 20 mg oral tablet) 1 tab Oral (given by mouth) 3 times a day as needed for IF NEEDED Education Materials Blood Glucose Monitoring, Adult Monitoring your blood sugar (glucose) is an important part of managing your diabetes. Blood glucosemonitoring involves checking your blood glucose as often as directed and keeping a log or record ofyour results over time. Checking your blood glucose regularly and keeping a blood glucose log can: ? Help you and your health care provider adjust your diabetes management plan as needed, including your medicines or insulin. ? Help you understand how food, exercise, illnesses, and medicines affect your blood glucose. ? Let you know what your blood glucose is at any time. You can quickly find out if you have low bloodglucose (hypoglycemia) or high blood glucose (hyperglycemia). Your health care provider will set individualized treatment goals for you. Your goals will be basedon your age, other medical conditions you have, and how you respond to diabetes treatment. Generally, the goal of treatment is to maintain the following blood glucose levels: ? Before meals (preprandial): 80???130 mg/dL (4.4???7.2 mmol/L). ? After meals (postprandial): below 180 mg/dL (10 mmol/L). ? A1C level: less than 7%. Supplies needed: ? Blood glucose meter. ? Test strips for your meter. Each meter has its own strips. You must use the strips that came with your meter. ? A needle to prick your finger (lancet). Do not use a lancet more than one time. ? A device that holds the lancet (lancing device). ? A journal or log book to write down your results. How to check your blood glucose Checking your blood glucose 1.?? Wash your hands for at least 20 seconds with soap and water. 2.?? Prick the side of your finger (not the tip) with the lancet. Do not use the same finger consecutively. 3.?? Gently rub the finger until a small drop of blood appears. 4.?? Follow instructions that come with your meter for inserting the test strip, applying blood to the strip, and using your blood glucose meter. 5.?? Write down your result and any notes in your log. Using alternative sites Some meters allow you to use areas of your body other than your finger (alternative sites) to test your blood. The most common alternative sites are the forearm, the thigh, and the palm of your hand. Alternative sites may not be as accurate as the fingers because blood flow is slower in those areas. This means that the result you get may be delayed, and it may be different from the result that you would get from your finger. Use the finger only, and do not use alternative sites, if: ? You think you have hypoglycemia. ? You sometimes do not know that your blood glucose is getting low (hypoglycemia unawareness). General tips and recommendations Blood glucose log ? Every time you check your blood glucose, write down your result. Also write down any notes about things that may be affecting your blood glucose, such as your diet and exercise for the day. This information can help you and your health care provider: ? Look for patterns in your blood glucose over time. ? Adjust your diabetes management plan as needed. ? Check if your meter allows you to download your records to a computer or if there is an [place] for [employer]. Most glucose meters store a record of glucose readings in the meter. If you have type 1 diabetes: ? Check your blood glucose 4 or more times a day if you are on intensive insulin therapy with multiple daily injections (MDI) or if you are using an insulin pump. Check your blood glucose: ? Before every meal and snack. ? Before bedtime. ? Also check your blood glucose: ? If you have symptoms of hypoglycemia. ? After treating low blood glucose. ? Before doing activities that create a risk for injury, like driving or using machinery. ? Before and after exercise. ? Two hours after a meal. ? Occasionally between 2:00 a.m. and 3:00 a.m., as directed. ? You may need to check your blood glucose more often, 6???10 times per day, if: ? You have diabetes that is not well controlled. ? You are ill. ? You have a history of severe hypoglycemia. ? You have hypoglycemia unawareness. If you have type 2 diabetes: ? Check your blood glucose 2 or more times a day if you take insulin or other diabetes medicines. ? Check your blood glucose 4 or more times a day if you are on intensive insulin therapy. Occasionally, you may also need to check your glucose between 2:00 a.m. and 3:00 a.m., as directed. ? Also check your blood glucose: ? Before and after exercise. ? Before doing activities that create a risk for injury, like driving or using machinery. ? You may need to check your blood glucose more often if: ? Your medicine is being adjusted. ? Your diabetes is not well controlled. ? You are ill. General tips ? Make sure you always have your supplies with you. ? After you use a few boxes of test strips, adjust (calibrate) your blood glucose meter by following instructions that came with your meter. ? If you have questions or need help, all blood glucose meters have a 24-hour hotline phone number available that you can call. Also contact your health care provider with questions or concerns you mayhave. Where to find more information ? The [place] [employer]: www.diabetes.org ? The Association of Diabetes Care & Education Specialists: www.diabeteseducator.org Contact a health care provider if: ? Your blood glucose is at or above 240 mg/dL (13.3 mmol/L) for 2 days in a row. ? You have been sick or have had a fever for 2 days or longer, and you are not getting better. ? You have any of the following problems for more than 6 hours: ? You cannot eat or drink. ? You have nausea or vomiting. ? You have diarrhea. Get help right away if: ? Your blood glucose is lower than 54 mg/dL (3 mmol/L). ? You become confused, or you have trouble thinking clearly. ? You have difficulty breathing. ? You have moderate or large ketone levels in your urine. These symptoms may represent a serious problem that is an emergency. Do not wait to see if the symptoms will go away. Get medical help right away. Call your local emergency services (911 in the [place] Do not drive yourself to the hospital. Summary ? Monitoring your blood glucose is an important part of managing your diabetes. ? Blood glucose monitoring involves checking your blood glucose as often as directed and keeping a log or record of your results over time. ? Your health care provider will set individualized treatment goals for you. Your goals will be basedon your age, other medical conditions you have, and how you respond to diabetes treatment. ? Every time you check your blood glucose, write down your result. Also, write down any notes about things that may be affecting your blood glucose, such as your diet and exercise for the day. This information is not intended to replace advice given to you by your health care provider. Make sure you discuss any questions you have with your health care provider. Document Revised: 05/25/2021 Document Reviewed: 05/25/2021 Elsevier Patient Education ?? 2021 [employer] Tests Performed Lab Test Name Test Result Date/Time pH Mirza 7.32 pH unit(s) 10/27/2022 06:33 EST pCO2 Mirza 62 mmHg 10/27/2022 06:33 EST pO2 Mirza 25 mmHg 10/27/2022 06:33 EST HCO3 Venous 32 mmol/L 10/27/2022 06:33 EST O2 Sat Mirza 38 % 10/27/2022 06:33 EST CO2 Total Venous 34 mmol/L 10/27/2022 06:33 EST Base Excess Venous 3.5 mmol/L 10/27/2022 06:33 EST WBC 8.6 x10^3/mcL 10/27/2022 06:33 EST RBC 4.6 x10^6/mcL 10/27/2022 06:33 EST Hgb 13.8 g/dL 10/27/2022 06:33 EST Hct 43.0 % 10/27/2022 06:33 EST MCV 93.7 10/27/2022 06:33 EST MCH 30.1 pg 10/27/2022 06:33 EST MCHC 32.1 g/dL 10/27/2022 06:33 EST RDW-CV 14.5 % 10/27/2022 06:33 EST Platelets 322 x10^3/mcL 10/27/2022 06:33 EST Neutro Auto 52.5 % 10/27/2022 06:33 EST Lymph Auto 38.8 % 10/27/2022 06:33 EST [place] Auto 4.1 % 10/27/2022 06:33 EST Eos, Auto 3.6 % 10/27/2022 06:33 EST Basophil Auto 0.5 % 10/27/2022 06:33 EST Imm Gran Auto 0.5 % 10/27/2022 06:33 EST Neutro Absolute 4.5 x10^3/mcL 10/27/2022 06:33 EST Sodium Level 137 mmol/L 10/27/2022 06:33 EST Potassium Level 3.9 mmol/L 10/27/2022 06:33 EST Chloride Level 97 mmol/L 10/27/2022 06:33 EST CO2 31 mmol/L 10/27/2022 06:33 EST BUN 24 mg/dL 10/27/2022 06:33 EST Glucose Level 139 mg/dL 10/27/2022 06:33 EST Creatinine Level 0.79 mg/dL 10/27/2022 06:33 EST eGFR AA 106 10/27/2022 06:33 EST eGFR Non-AA 106 10/27/2022 06:33 EST Calcium Level 9.3 mg/dL 10/27/2022 06:33 EST Lactic Acid Lvl 1.4 mmol/L 10/27/2022 06:33 EST Glucose POC 107 mg/dL 10/27/2022 07:18 EST Whole Blood Glucose - Manual Entry 107 mmol/L 10/27/2022 07:19 EST Patient/Web Applications Administrator Signature Patient Name:MARIELOS MIRAMONTES I have received this information and my questions have been answered. Patient/Web Applications Administrator Name: Patient/Web Applications Administrator Signature: Relationship to Patient: Witness Name/Signature: Date: Electronically Signed on: 10/27/2022 09:20 ESTSigned by:[facility] Emergency department Note * Noemy Waters: PERFORM Event Display: ED Notes Authored Date: [id number] * Noemy Waters: PERFORM Event Display: ED Notes Authored Date: [id number] * Noemy Waters: PERFORM Event Display: ED Notes Authored Date: [id number] Patient Care team information Care Team Personnel Name: Jamila Archer MD Position: Physician Member Role: Informed Provider Address: Address: [place] [id number] Name: Genia Figueredo Position: Nurse Member Role: ED Nurse Name: Lissette Nobles RN Position: Nurse Member Role: ED Nurse Name: Nikki Wilson MD Position: Physician Member Role: Attending Physician Address: Address: [address] [place] [id number] [place] [address] Care Team Related Persons Name: EMILIO PATHAK Address: Home [address] [place], [phone] Name: GENIA GRAMAJO Address: Home [address] [place], [id number]
--- OUTSIDE RECORDS SUMMARY | 2024-02-29 19:08 | XMS_ITS | Continuity of Care Document ---
Author Name Unknown Organization [facility] Address [address] [place] [address] Care Team Providers Care Laborer/Key Man Name Role Phone Jamila Archer Primary Care Physician Encounter [id number] Date(s): 11/23/22 - 11/23/[address] [address] Encounter Diagnosis Pain of left calf(Discharge Diagnosis) - 11/23/22 Discharge Disposition: Home or Self Care Attending Physician: Natalie Wade NP Admitting Physician: Natalie Wade NP Referring Physician: Natalie Wade SENIOR ENERGY MARKET COORDINATOR Allergies, Adverse Reactions, Alerts Substance Reaction Severity Status morphine Unknown Active rOPINIRole Severe Active Assessment and Plan Future Appointments Future Scheduled Tests Laboratory* SARS-CoV-2 (COVID-19)/Flu/RSV ([facility]) 08/21/22 Immunizations Given and Recorded Vaccine Date Status [...] instructions, # 500 EA, 0 Refill(s), Pharmacy: [facility] [id number] Start Date: 09/08/22 Status: Ordered Bactrim DS 800 mg-160 mg oral tablet 1 tab, Oral, BID, # 20 tab, 0 Refill(s), Pharmacy: [facility] [id number], 150, cm, 11/18/22 19:16:00 EST, Height/Length Dosing, 127, kg, 11/18/22 19:16:00 EST, Weight Dosing Start Date: 11/21/22 Stop Date: 12/01/22 Status: Ordered Dexcom G6 sensors Dexcom G6 sensors, To check BS 4x daily, Supply, See instructions, # 6 EA, 0 Refill(s), Pharmacy: [facility] [id number] Start Date: 11/23/22 Status: Ordered Diflucan 150 mg oral tablet 150 mg = 1 tab, Oral, Once, Can repeat in 3 days if symptoms persist, # 2 tab, 0 Refill(s), Pharmacy: [facility] [id number], 150, cm, 11/18/22 19:16:00 EST, Height/Length Dosing, 127, kg, 11/18/22 19:16:00 EST, Weight Dosing Start Date: 11/21/22 Status: Ordered ergocalciferol 1.25 mg (50,000 intl units) oral capsule 50,000 IntlUnit = 1 cap, Oral, every week Start Date: 03/02/22 Status: Ordered fenofibrate 30 mg oral capsule 30 mg = 1 cap, Oral, Daily, # 90 cap, 3 Refill(s), Pharmacy: [facility] [id number], 150, cm, 10/27/22 6:33:00 EST, Height/Length Dosing, 127, kg, 10/27/22 6:33:00 EST, Weight Dosing Start Date: 10/27/22 Status: Ordered fenofibrate 40 mg oral tablet 40 mg = 1 tab, Oral, Daily, # 30 tab, 0 Refill(s), Pharmacy: [facility] [id number], 150, cm, 10/27/22 6:33:00 EST, Height/Length Dosing, [...] dose., # 90 tab, 3 Refill(s), Pharmacy: [id number], 150, cm, 10/27/22 6:33:00 EST, Height/Length D... Start Date: 10/27/22 Status: Ordered levothyroxine 125 mcg (0.125 mg) oral tablet 125 mcg = 1 tab, Oral, Daily, Take one tablet by mouth with water a half hour before eating or taking any other medication. Take with 100 mcg dose., # 90 tab, 3 Refill(s), Pharmacy: [id number], 150, cm, 10/27/22 6:33:00 EST, Height/Length D... Start Date: 10/27/22 Status: Ordered lisinopril 10 mg oral tablet 10 mg = 1 tab, Oral, Daily, for 90 days- dose change 10/20/2021, # 90 tab, 3 Refill(s), Pharmacy: [id number], 150, cm, 08/09/22 1:15:00 EST, Height/Length Dosing, 127.01, kg, 08/09/22 1:15:00 EST, Weight Dosing Start Date: 10/05/22 Status: Ordered multivitamin adult, oral tablet 1 tab, Oral, Daily, # 90 tab, 0 Refill(s), other reason (Rx) Start Date: 03/24/22 Status: Ordered ONETOUCH VERIO FLEX KIT ONETOUCH VERIO FLEX KIT, 1 each by [facility] [place]. (non drug: combo route) route 4 times daily. Start Date: 03/02/22 Status: Ordered ONETOUCH VERIO MARLENE ONETOUCH VERIO MARLENE, Test blood glucose withone new test strip 4 times daily Start Date: 03/02/22 Status: Ordered predniSONE 20 mg oral tablet 40 mg = 2 tab, Oral, Daily, # 10 tab, 0 Refill(s), Pharmacy: [id number], 150, cm, 11/18/22 19:16:00 EST, Height/Length Dosing, 127, kg, 11/18/22 19:16:00 EST, Weight Dosing Start Date: 11/21/22 Stop Date: 11/26/22 Status: Ordered torsemide 20 mg oral tablet 1 tab, Oral, TID, PRN IF NEEDED, # 90 tab, 1 Refill(s), Pharmacy: [id number], 150, cm, 10/27/22 6:33:00 EST, Height/Length Dosing, 127, kg, 10/27/22 6:33:00 EST, Weight Dosing Start Date: 11/13/22 Status: Ordered Trulicity Pen 1.5 mg/0.5 mL subcutaneous solution every week Start Date: 03/02/22 Status: Ordered Vitamin C 500 mg oral tablet 500 mg = 1 tab, Oral, Daily, # 30 tab, 0 Refill(s), other reason (Rx) Start Date: 03/24/22 Status: Ordered ZyrTEC-D 5 mg-120 mg oral tablet, extended release 1 tab, Oral, every 24 hr, # 30 tab, 0 Refill(s), Pharmacy: [id number], 150, cm, :18:00 EDT, Height/Length Dosing, 129, kg, 03/14/22 6:18:00 EDT, Weight Dosing Start Date: 03/23/22 Status: Ordered Problem List Condition Confirmation Course Effective Dates Status H ealt Status Informant Adult health examination Confirmed Active [...] Active HOLLIE treated with BiPAP Confirmed Active Severe obesity Confirmed Active Tachycardia Confirmed Active Tension-type headache Confirmed Active Type 1 diabetes Confirmed Active Procedures Procedure Date Related Diagnosis [...] Physician Member Role: Informed Provider Address: Address: [facility] [place], [place] [id number] [place] [address] Name: Shila Krueger Position: Ambulatory - RN/MARKETING PROGRAM MANAGER ([facility]) Member Role: Vessel Liner Care Team Related Persons Name: EMILIO PATHAK Address: Home [address] [facility] [phone] Name: ELLIS GRAMAJO Address: Home [address] [place], [id number]
--- OUTSIDE RECORDS SUMMARY | 2024-02-29 19:09 | XMS_ITS | Continuity of Care Document ---
Author Name Unknown Organization [facility] Address [address] [place] [address] Care Team Providers Care Dude Ranch Manager Name Role Phone Jamila Archre Primary Care Physician Encounter [facility] [id number] Date(s): 02/05/24 - 02/06/24 [facility] [address] [place] [address] Encounter Diagnosis Pneumonia(Discharge Diagnosis) - 02/05/24 Hypoxemia(Discharge Diagnosis) - 02/05/24 Transaminitis(Discharge Diagnosis) - 02/05/24 Discharge Disposition: Discharge/Transfer to [facility] as Inpt Attending Physician: Landon Gonzales MD Admitting Physician: Landon Gonzales MD Allergies, Adverse Reactions, Alerts Substance Reaction Severity Status morphine Unknown Active oxyCODONE 1 Unknown Active rOPINIRole Severe Active 1repotrs feeling loopy Assessment and Plan Extracted from: Title:ED Provider Note Author:Ritika Duke Ma, MD Date:02/05/24 1.??Pneumonia??J18.9 2.??Hypoxemia??R09.02 3.??Transaminitis??R74.01 Orders: D5-0.9NaCl 1,000 mL, Total Volume (mL): 1,000, 1,000 mL, Soln-IV, IV, 100 mL/hr, Order Duration: 30 days, Start Date: 02/05/24 21:40:00 EDT, Stop Date: 03/06/24 21:39:00 EDT, 139.3 kg, Populate Charting Weight From Order, 2.4, m2 Blood Culture, Blood, Stat collect, ST - Stat, 02/05/24 18:43:00 EDT, Once, Nurse collect, Print Label Blood Culture, Blood, Stat collect, ST - Stat, 02/05/24 18:43:00 EDT, Once, Nurse collect, Print Label Transfer to Another Facility, 02/05/24 21:21:00 EDT, [facility] Future Appointments Appointment Date:02/12/2024 04:00:00 PM Scheduled Provider:Shila Krueger Location:[facility] Appointment Type:Care Coordination Follow-Up 60 (NCTY) Diagnostic Tests Pending * Blood Culture 02/05/24 * Blood Culture 02/05/24 Future Scheduled Tests Laboratory* Basic Metabolic Panel 02/11/24 * Basic Metabolic Panel 05/29/23 * CBC w/ [...] Recorded 1Result Comment: pt tolerated well Medications Advair HFA 115 mcg-21 mcg/inh inhalation aerosol 2 puffs, Inhale, BID, # 8 g, 0 Refill(s) Start Date: 02/02/24 Status: Ordered albuterol 90 mcg/inh aerosol inhaler 1 puffs, Inhale, every 6 hr, PRN as needed for wheezing, # 8.5 g, 3 Refill(s), Pharmacy: [id number], 149, cm, 12/10/23 11:24:00 EDT, Height, 136.08, kg, 12/10/23 11:26:00 EDT, Weight Dosing Start Date: 12/24/23 Status: Ordered allopurinol 100 mg oral tablet 100 mg = 1 tab, Oral, Daily, # 90 tab, 0 Refill(s), Pharmacy: [facility] [id number], 149, cm, 12/10/23 11:24:00 EDT, Height, 136.08, kg, 12/10/23 11:26:00 EDT, Weight Dosing Start Date: 12/24/23 Status: Ordered aspirin 81 mg oral capsule 81 mg = 1 cap, Oral, every 24 hr, # 90 cap, 4 Refill(s), Pharmacy: [facility] [id number], 149.86, cm, 11/27/23 8:07:00 EDT, Height, 136.08, kg, 11/27/23 8:15:00 EDT, Weight Dosing Start Date: 11/27/23 Status: Ordered atorvastatin 40 mg oral tablet 40 mg = 1 tab, Oral, Daily, # 90 tab, 3 Refill(s), Pharmacy: [facility] [id number], 149, cm, 12/10/23 11:24:00 EDT, Height, 136.08, kg, 12/10/23 11:26:00 EDT, Weight Dosing Start Date: 12/24/23 Status: Ordered azithromycin 250 mg oral tablet 250 mg = 1 tab, Oral, Daily, # 3 tab, 0 Refill(s), Pharmacy: [facility] [id number], 149, cm, 02/02/24 14:33:00 EDT, Height, 139.3, kg, 02/02/24 8:47:00 EDT, Weight Dosing Start Date: 02/04/24 Stop Date: 02/07/24 Status: Ordered B-D UF III SHORT PEN NEED MIS B-D UF III SHORT PEN NEED MIS, Use one new pen needle for each insulin injection 5 to 7 times per day as directed in case of pump malfunction, Supply, See instructions, # 500 EA, 0 Refill(s), Pharmacy: [facility] [id number] Start Date: 12/24/23 Status: Ordered cefpodoxime 200 mg oral tablet 200 mg = 1 tab, Oral, every 12 hr, # 8 tab, 0 Refill(s), Pharmacy: [facility] [id number], 149, cm, 02/02/24 14:33:00 EDT, Height, 139.3, kg, 02/02/24 8:47:00 EDT, Weight Dosing Start Date: 02/04/24 Stop Date: 02/08/24 Status: Ordered cetirizine 10 mg oral tablet 1 tab, Oral, BID, # 60 tab, 0 Refill(s), Pharmacy: [id number], 149, cm, 12/10/23 11:24:00 EDT, Height, 136.08, kg, 12/10/23 11:26:00 EDT, Weight Dosing Start Date: 12/24/23 Status: Ordered Dexcom CGM- change q10 days [...] higher, # 15 mL, 2 Refill(s), Pharmacy: [facility], 149, cm, 12/10/23 11:24:00 EDT, Height, 136.08, kg, 12/10/23 11:26:00 EDT, Weight Dosing Start Date: 12/24/23 Status: Ordered HumuLIN R KwikPen (Concentrated) 500 [...] Status: Ordered lisinopril 5 mg oral tablet 1 tab, Oral, Daily, # 90 tab, 0 Refill(s), Pharmacy: [id number], 149, cm, 12/10/23 11:24:00 EDT, Height, 136.08, kg, 12/10/23 11:26:00 EDT, Weight Dosing Start Date: 01/28/24 Status: Ordered meclizine 25 mg oral tablet 25 mg = 1 tab, Oral, TID, PRN as needed for dizziness, # 30 tab, 0 Refill(s), Pharmacy: [facility], 149, cm, 12/10/23 11:24:00 EDT, Height, 136.08, kg, 12/10/23 11:26:00 EDT, Weight Dosing Start Date: 12/18/23 Status: Ordered Mounjaro 2.5 mg/0.5 mL subcutaneous solution 2.5 mg =, Subcutaneous, every week, rotate injection sites, # 4 EA, 0 Refill(s), Pharmacy: [id number], 149, cm, 12/10/23 11:24:00 EDT, Height, 136.08, kg, 12/10/23 11:26:00 EDT, Weight Dosing Start Date: 12/24/23 Status: Ordered Cooke 0.65% nasal spray 1 sprays, Nostril-Both, QID, PRN as needed for dry nasal passages, in each nostril, # 44 mL, 0 Refill(s) Start Date: 02/02/24 Status: Ordered ONETOUCH VERIO FLEX KIT ONETOUCH [...] 11/07/23 Status: Ordered Probiotic 10 Ultra Strength 1 cap, Oral, Daily, 0 Refill(s) Start Date: 11/27/23 Status: Ordered Toprol-XL 25 mg oral tablet, extended release 25 mg = 1 tab, Oral, Daily, # 90 tab, 4 Refill(s), Pharmacy: [facility], 149.86, cm, 11/27/23 8:07:00 EDT, Height, 136.08, kg, 11/27/23 8:15:00 EDT, Weight Dosing Start Date: 11/27/23 Status: Ordered torsemide 20 mg oral tablet 3 tab, Oral, BID, TWICE DAIY., # 180 tab, 3 Refill(s), Pharmacy: [id number], 149, cm, 02/02/24 14:33:00 EDT, Height, 139.3, kg, 02/02/24 8:47:00 EDT, Weight Dosing Start Date: 02/06/24 Status: Ordered Problem List Condition Confirmation Course Effective Dates Status H ealth Status Informant Aortic stenosis Confirmed Active Asthma Confirmed Active Autoimmune thyroiditis Confirmed Active Bilateral lower extremity edema Confirmed Active Constipation Confirmed Active Developmental disorder Confirmed Active Erythroderma Confirmed Active Gout Confirmed Active HLD (hyperlipidemia) Confirmed Active HTN (hypertension) Confirmed Active Hypothyroidism Confirmed Active 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 Intermenstrual bleeding - irregular Confirmed Active Irregular sleep-wake pattern Confirmed Active Localized edema Confirmed Active Mediastinal adenopathy Confirmed Active Morbid obesity Confirmed Active Obstructive sleep apnea syndrome 1 Confirmed Active HOLLIE treated with BiPAP Confirmed Active Palpitations Confirmed Active Periodic limb movement disorder Confirmed Active Peripheral edema Confirmed Active Pneumonia Confirmed Active Pulmonary hypertension Confirmed Active Steatohepatitis Confirmed Active Tachycardia Confirmed Active Tension-type headache Confirmed Active Thyroid nodule Confirmed Active Type 1 diabetes Confirmed Active 1BiPAP Imax 25 cm, Luis M 16 cm, [...] 4with adenoidectomy Results Laboratory List Name Date Blood Gas Venous 02/05/24 Lactic Acid 02/05/24 Urinalysis Microscopic 02/05/24 Urinalysis with Micro if Indicated and C ulture if Indicated 02/05/24 CBC w/ Diff 02/05/24 Comprehensive Metabolic Panel (CMP) 02/04 SARS-CoV-2 (COVID-19)/Flu/RSV (GeneXpert ) 02/05/24 Automated Diff 02/05/24 Most recent to oldest [Reference Range]: 1 WBC [5.0-10.0 x10^3/mcL] 7.7 x10^3/mcL (02/05/24 6:24 PM) RBC [4.1-5.3 x10^6/mcL] 3.7 x10^6/mcL *LOW* (02/05/24 6:24 PM) Neutro Auto [40.0-75.0 %] 66.3 % (02/05/24 6:24 PM) Lymph Auto [20.0-50.0 %] 23.0 % (02/05/24 6:24 PM) Costilla Auto [2.0-15.0 %] 5.4 % (02/05/24 6:24 PM) Basophil Auto [0.0-1.0 %] 0.3 % (02/05/24 6:24 PM) BUN [7-18 mg/dL] 28 mg/dL *HI* (02/05/24 6:24 PM) UA Color Yellow (02/05/24 7:55 PM) UA WBC [0-3] 0-3 (02/05/24 7:55 PM) Glucose Level [74-106 mg/dL] 98 mg/dL (02/05/24 6:24 PM) Potassium Level [3.5-5.1 mmol/L] 4.3 mmo l/L (02/05/24 6:24 PM) MCV [80.0-96.0 fL] 91.9 fL (02/05/24 6:24 PM) UA Urobilinogen Normal (02/05/24 7:55 PM) UA Bili [Negative] Negative (02/05/24 7:55 PM) CO2 Total Venous 28 mmol/L *NA* (02/05/24 9:05 PM) UA Ketones Negative (02/05/24 7:55 PM) HCO3 Venous [22-30 mmol/L] 27 mmol/L (02/05/24 9:05 PM) AST [15-37 unit/L] 200 unit/L *HI* (02/05/24 6:24 PM) ALT [14-59 unit/L] 258 unit/L *HI* (02/05/24 6:24 PM) MCHC [31.0-35.0 g/dL] 31.9 g/dL (02/05/24 6:24 PM) Sodium Level [136-145 mmol/L] 145 mmol/L (02/05/24 6:24 PM) UA RBC [0-2] 0-2 (02/05/24 7:55 PM) UA Leuk Est Negative (02/05/24 7:55 PM) UA Nitrite Negative (02/05/24 7:55 PM) UA Glucose [Negative] Negative (02/05/24 7:55 PM) Hct [37.0-47.0 %] 34.2 % *LOW* (02/05/24 6:24 PM) UA Bacteria Rare /HPF (02/05/24 7:55 PM) Calcium Level [8.5-10.1 mg/dL] 10.3 mg/d L *HI* (02/05/24 6:24 PM) Albumin Level [3.4-5.0 g/dL] 3.3 g/dL *LOW* (02/05/24 6:24 PM) Protein Total [6.4-8.2 g/dL] 8.4 g/dL *HI* (02/05/24 6:24 PM) UA Protein 1+ *ABN* (02/05/24 7:55 PM) MCH [26.0-32.0 pg] 29.3 pg (02/05/24 6:24 PM) Neutro Absolute 5.1 x10^3/mcL *NA* (02/05/24 6:24 PM) Bilirubin Total [0.2-1.0 mg/dL] 1.0 mg/d L (02/05/24 6:24 PM) Hgb [12.0-16.0 g/dL] 10.9 g/dL *LOW* (02/05/24 6:24 PM) Alk Phos [46-146 unit/L] 388 unit/L *HI* (02/05/24 6:24 PM) UA Blood Negative *NA* (02/05/24 7:55 PM) pCO2 Mirza [33-47 mmHg] 47 mmHg (02/05/24 9:05 PM) UA Mucous None Seen /HPF (02/05/24 7:55 PM) UA Spec Grav <=1.005 *NA* (02/05/24 7:55 PM) Platelets [130-450 x10^3/mcL] 223 x10^3/ mcL (02/05/24 6:24 PM) CO2 [21-32 mmol/L] 26 mmol/L (02/05/24 6:24 PM) Lactic Acid Lvl [0.7-2.0 mmol/L] <0.8 mm ol/L *LOW* (02/05/24 9:05 PM) UA Squam Epithelial [None Seen] Few *ABN* (02/05/24 7:55 PM) pO2 Mirza 87 mmHg *NA* (02/05/24 9:05 PM) UA pH 6.0 *NA* (02/05/24 7:55 PM) pH Mirza [7.32-7.43 pH unit(s)] 7.37 pH un it(s) (02/05/24 9:05 PM) O2 Sat Mirza 98 % *NA* (02/05/24 9:05 PM) eGFR Non-AA [>=60] 81 (02/05/24 6:24 PM) eGFR AA [>=60] 81 (02/05/24 6:24 PM) Base Excess Venous 1.1 mmol/L *NA* (02/05/24 9:05 PM) UA Appear Clear (02/05/24 7:55 PM) Chloride Level [98-107 mmol/L] 106 mmol/ L (02/05/24 6:24 PM) RDW-CV [11.5-14.5 %] 16.1 % *HI* (02/05/24 6:24 PM) Imm Gran Auto [0.0-0.9 %] 0.5 % (02/05/24 6:24 PM) UA Culture Ind?. Not Indicated (02/05/24 7:55 PM) Creatinine Level [0.55-1.02 mg/dL] 0.98 mg/dL (02/05/24 6:24 PM) SARS-CoV-2(Covid19)PCR(GXpert COVFLURSV) [Negative] Negative (02/05/24 6:24 PM) Flu A (GXpert COVFLURSV) [Negative] Nega tive (02/05/24 6:24 PM) RSV (GXpert COVFLURSV) [Negative] Negati ve (02/05/24 6:24 PM) Flu B (GXpert COVFLURSV) [Negative] Nega tive (02/05/24 6:24 PM) Eos, Auto [1.0-6.0 %] 4.5 % (02/05/24 6:24 PM) Vital Signs Most recent to oldest [Reference Range]: 1 2 3 Temperature Axillary [35.2-38 Deg C] 40.1 Deg C *HI* (02/05/24 7:30 PM) Temperature Oral [35.8-37.3 Deg C] 36.5 Deg C (02/05/24 10:30 PM) 36.9 Deg C (02/05/24 9:00 PM) Temperature Temporal Artery [36-38 Deg C] 38.4 Deg C *HI* (02/05/24 6:17 PM) Peripheral Pulse Rate [60-100 bpm] 96 bpm (02/06/24 12:15 AM) 98 bpm (02/06/24 12:00 AM) 95 bpm (02/05/24 11:45 PM) Heart Rate Monitored [60-100 bpm] 96 bpm (02/06/24 12:15 AM) 95 bpm (02/06/24 12:00 AM) 94 bpm (02/05/24 11:45 PM) Respiratory Rate [12-24 br/min] 20 br/min (02/06/24 12:15 AM) 29 br/min *HI* (02/06/24 12:00 AM) 33 br/min *HI* (02/05/24 11:45 PM) Blood Pressure [90-140/60-90 mmHg] 108/64mmHg (02/06/24 12:00 AM) 108/64mmHg (02/05/24 11:45 PM) 109/59mmHg (02/05/24 11:30 PM) Mean Arterial Pressure, Cuff [65-140 mmHg] 79 mmHg (02/06/24 12:00 AM) 79 mmHg (02/05/24 11:45 PM) 76 mmHg (02/05/24 11:30 PM) Social History Social History Type Response Tobacco Never tobacco user T obacco Use:. Sex Female Respiratory therapy Hospital Progress note * Rosa Mora: PERFORM Event Display: Respiratory Therapy Progress Note Authored Date: [id number] 1845: RT bedside, pt awake and alert, labored respirations. RR 44 and equal, SPO2 100% on 15L NRB, HR 136. Pt states she is SOB. BBS diminished t/o. RT to now discuss possibility of BIPAP w/ MD. Pt states she feels comfortable enough but remains SOB at this time. Of note, pt does have somewhat of alabored breathing pattern baseline. 1929: MD now allowing BIPAP to be placed for WOB and RR, Pt refused stating she just got comfortable and feels a little better sitting up in bed. Home unit BIPAP w/ she brought to the ED with her wasalso refused. Pt remains on 15L NRB SPO2 100%. RR ~32 equal and less labored but diaphragmatic breathing pattern. 2017: RT called bedside for pt requesting to try BIPAP. Placed on 12/5 75%. Gradually weaned to 10/5 40%. Spo2 98%, HR 117, RR 35-50 equal and unlabored but remains to have diaphragmatic respirations. Encouraged pt to slow breathing down. Pt tolerating well at this time. Pt remains to be extremely diaphoretic and complaint of being hot. Ice packs provided to pt. 2114: RT called bedside to take pt off BIPAP due to pt blood sugar dropping and pt needing to eat, blood sugar per RN 40s to 70s. Pt transitioned to 6L NC, SPO2 85%, pt states she is a mouth breather. Pt placed on 6L OxyMask SPO2 88%. Increased to 8L OxyMask SPO2 ~92%. Hr 113, RR 44 equal and increase in labored and diaphragmatic respirations. Pt to eat at this time. Pt denies any needs and states she feels good enough right now to stay on the OxyMask to eat. 2224: RT bedside, pt back on BIPAP 10/5 30%. SPo2 95%, HR 106, RR 40 equal and unlabored but does still have diaphragmatic breathing pattern. Pt denies any needs and is tolerating BIPAP well, restingcomfortably in bed. This RT did encourage pt to slow her breathing down on multiple occasions. Coldwashcloth provided to pt to help cool down and wipe face. 2320: BIPAP check done at this time, remains on 10/5 35%. SPO2 96%, HR 94, RR 25 equal and labored w/ diaphragmatic pattern. BBS clear w/ increased aeration compared to initial assessment, coarse crackles in RUL. Pt states she is hot and has a headache. RN aware pt requesting pain meds. Pt denies any needs and is tolerating well at this time. Pt states she feels the BIPAP is/has been giving enough support since being placed on it. VT 400s. ~0005: RT called bedside to state transport team arrived to take pt to tertiary facility. Pt removed from BIPAP by RN on RT arrival and placed on 8L OxyMask. Pt used bedside commode w/out issue, respirations remain high in the 30-40s. Spo2 ~95%. ~0030 pt left w/ transport crew to [facility] ICU on BIPAP. Pt in no acute resp distress on d/c from ED. EMS team had no further questions. Electronically Signed on 02/06/2024 01:35 EDT Rosa Mora Kendra A: PERFORM Event Display: Respiratory Therapy Progress Note Authored Date: Pt came into ED w/ acute SOB, SpO2 in 60's per RN w/ cyanotic lips. Pt placed on 15 L/min NRB w/ improvement of sats to 98%. Pt has rapid shallow respirations. Pt stating she was dc'd yesterday afteradmission for sepsis/PNA. Pt administered duoneb x1 w/o relief. Pt sats dropped to 81% breifly after neb. NRB placed back on pt. MD to see pt. Electronically Signed on 02/05/2024 18:30 EDT Chelo Bansal Physician Emergency department Note * Ritika Duke MD: PERFORM Event Display: ED Note Physician Authored Date: [id number] MARIELOS MIRAMONTES :1995 Age:29 years Sex:Female Visit Date:02/05/2024 Primary Care Physician: Jamila Archer MD Basic Information Time Seen: Landon Gonzales MD / 02/05/2024 18:26 Chief Complaint Pt d/tia yesterday from PCU after stay for septic PNA. Pt presents today w/ SOB 62% on RA. Pt states she had low grade fever at d/c. BGL 116. Pt reports BGL down to 45 overnight per dexcom. History Of Present Illness: 29-year-old woman??with a history of??aortic stenosis??(valve area??2.1 cm?? by echo??11/30), asthma,??thyroiditis,??lower extremity edema,??C. difficile colitis,??gout, hyperlipidemia, hypertension,??hypothyroidism,??obstructive sleep apnea on BiPAP??with 3 L/min oxygen supplementation,??obesity,??p alpitations, pulmonary hypertension??(PAP 45??mmHg),??and type 1 diabetes??who was recently admitted on February 01??with sepsis from??multifocal pneumonia, treated with IV antibiotics,??discharged yesterday,??who returns to the emergency department??complaining of??recurrent shortness of breath.?? The patient denies fevers, chills,??her cough is improved,??she has had no nausea, vomiting, constipation or diarrhea.?? No abdominal pain. Physical Exam Vitals & Measurements T:??40.1?C ??(Axillary)?? HR:??117??(Monitored)?? RR:??40?? RR:??40??(Total)?? BP:??122/72?? SpO2:??96%?? Pain Score:??9?? O2 Flow Rate:??15?? O2 Flow Rate:??15?? O2 Therapy:??BIPAP?? General: A&Ox3, Calm, no apparent distress, well developed, pleasant and cooperative ?? HEENT: Head ATNC. Eyes: RIAZ. Extraocular Mobility: intact and symmetrical. Conjunctiva: non-injected, anicteric, no discharge. Oral Cavity: moist. Neck: no masses, no crepitus. Lymph Nodes: no cervical lymphadenopathy? Respiratory: Decreased breath sounds bilaterally ?? CV: RRR, normal S1, normal S2, no murmurs, rubs or gallops ?? Abdomen : soft, non-tender, non-distended, no rebound or guarding, no hepatosplenomegaly ?? Extremities: no le swelling, warm and well-perfused, no cyanosis, capillary refill <2 seconds? Skin: no rash, no lesions, no bruising? Neuro: normal tone, normal strength in all 4 extremities, sensation intact?? Medical Decision Makin-year-old woman??with a history of??aortic stenosis??(valve area??2.1 cm?? by echo??11/30), asthma,??thyroiditis,??lower extremity edema,??C. difficile colitis,??gout, hyperlipidemia, hypertension,??hypothyroidism,??obstructive sleep apnea on BiPAP??with 3 L/min oxygen supplementation,??obesity,??p alpitations, pulmonary hypertension??(PAP 45??mmHg),??and type 1 diabetes??who was recently admitted on February 01??with sepsis from??multifocal pneumonia, treated with IV antibiotics,??discharged yesterday,??who returns to the emergency department??complaining of??recurrent shortness of breath.? Thorough chart review performed, nursing triage note reviewed, vitals reviewed ?? On arrival, patient febrile to 38.4,??blood pressure 157/78, heart rate 123,??respiratory rate 34,??satting 98%??on 10 L??nonrebreather.?? Patient??speaking in full sentences??on the nonrebreather. ?? Labs reviewed and interpreted independently: No leukocytosis??7.7, Hgb at baseline??10.9, No electrolyte abnormality on comprehensive metabolic panel. Renal function at baseline??with BUNs/creatinine 28/0.98.?? AST/ALT 200/258 ?? Imaging reviewed and interpreted independently: CXR w/ no acute findings ?? The patient received Tylenol PO,??Vanc and Zosyn??as well as Solu-Medrol IV ?? Due to pt's comorbidities, pt would benefit from care at a tertiary care center. At the moment she is breathing in the 30ies but refusing BiPAP.?? Discussed with [facility] for transfer to hospitalist bed - they declined due to capacity While discussing with [facility], pt actually agreed to BiPAP so she changed to ICU level, discussed with the MICU fellow at [facility] who accepted the pt for transfer. Dr Lee.? Pt signed out to Dr Luna at 2200 pending transfer - transport still being arranged Critical Care Time Spent Crit care time: Total aggregated critical care time 30 minutes. Due to a high probability of clinically significant, life threatening deterioration, the patient required my highest level of preparedness to interveneemergently and I personally spent this critical care time directly and personally managing the patient. This critical care time included obtaining a history; examining the patient; pulse oximetry; ordering and review of studies; arranging urgent treatment with development of a management plan; evaluation of patient's response to treatment; frequent reassessment; and, discussions with other providers. This critical care time was performed to assess and manage the high probability of imminent, life-threatening deterioration that could result in multi-organ failure. It was exclusive of separately billable procedures and treating other patients. Procedure No Qualifying Data Assessment/Plan 1.??Pneumonia??J18.9 2.??Hypoxemia??R09.02 3.??Transaminitis??R74.01 Orders: D5-0.9NaCl 1,000 mL, Total Volume (mL): 1,000, 1,000 mL, Soln-IV, IV, 100 mL/hr, Order Duration: 30days, Start Date: 02/05/24 21:40:00 EDT, Stop Date: 03/06/24 21:39:00 EDT, 139.3 kg, Populate Charting Weight From Order, 2.4, m2 Blood Culture, Blood, Stat collect, ST - Stat, 02/05/24 18:43:00 EDT, Once, Nurse collect, Print Label Blood Culture, Blood, Stat collect, ST - Stat, 02/05/24 18:43:00 EDT, Once, Nurse collect, Print Label Transfer to Another Facility, 02/05/24 21:21:00 EDT, [facility] Medication Reconciliation Unchanged albuterol (albuterol 90 mcg/inh aerosol inhaler)1 Puffs Inhale (breathe in) every 6 hours as neededas needed for wheezing. Refills: 3. ?? allopurinol (allopurinol 100 mg oral tablet)1 tab Oral (given by mouth) every day. Refills: 0. ?? aspirin (aspirin 81 mg oral capsule)1 Capsules Oral (given by mouth) every 24 hours. Refills: 4. ?? atorvastatin (atorvastatin 40 mg oral tablet)1 tab Oral (given by mouth) every day. Refills: 3. ?? azithromycin (azithromycin 250 mg oral tablet)1 tab Oral (given by mouth) every day for 3 Days. Refills: 0. ?? bifidobacterium-lactobacillus (Probiotic 10 Ultra Strength)1 Capsules Oral (given by mouth) every day. ?? cefpodoxime (cefpodoxime 200 mg oral tablet)1 tab Oral (given by mouth) every 12 hours for 4 Days. Refills: 0. ?? cetirizine (cetirizine 10 mg oral tablet)1 tab Oral (given by mouth) 2 times a day. Refills: 0. ?? Durable Medical Equipment for Prescription (B-D UF III SHORT PEN NEED MIS)Use one new pen needle for each insulin injection 5 to 7 times per day as directed in case of pump malfunction. Refills: 0. ?? Durable Medical Equipment for Prescription (Dexcom CGM- change q10 days)See instructions for 10 Days. ?? Durable Medical Equipment for Prescription (Portable Back Pack O2 Tank)2.5L pulse dose. Refills: 0. ?? [id number] Milligrams Oral (given by mouth) every day. ?? fluticasone-salmeterol (Advair HFA 115 mcg-21 mcg/inh inhalation aerosol)2 Puffs Inhale (breathe in) 2 times a day. ?? glucagon (Glucagon Emergency Kit for Low Blood Sugar)follow instructions per kit; as needed low blood sugar. ?? insulin lispro (HumaLOG KwikPen 100 units/mL injectable solution)40 Units Subcutaneous (under the skin) every morning. With breakfast if BG is 230 or higher. Refills: 2. ?? insulin regular (HumuLIN R KwikPen (Concentrated) 500 units/mL subcutaneous solution)230 units of humilin at breakfast 150 Units of humilin at lunch 100 Units of humilin at dinner, decrease dose and titrate as necessary as half dose of insulin was given in hospital and was still hypoglycemic. ?? [id number] Micrograms Oral (given by mouth) every day. ?? lisinopril (lisinopril 5 mg oral tablet)1 tab Oral (given by mouth) every day. Refills: 0. ?? meclizine (meclizine 25 mg oral tablet)1 tab Oral (given by mouth) 3 times a day as needed as needed for dizziness. Refills: 0. ?? metoprolol (Toprol-XL 25 mg oral tablet, extended release)1 tab Oral (given by mouth) every day. Refills: 4. ?? Other Prescription (Altitude CoIO FLEX KIT)1 each by [facility] [place]. (non drug: combo route) route 4 times daily.. ?? Other Prescription ([employer] TV VERIO MARLENE)Test blood glucose withone new test strip 4 times daily. ?? sodium chloride nasal (Cooke 0.65% nasal spray)1 Sprays Nasal (into the nose) 4 times a day as needed as needed for dry nasal passages. in each nostril. ?? tirzepatide (Mounjaro 2.5 mg/0.5 mL subcutaneous solution)2.5 Milligrams Subcutaneous (under the skin) every week. rotate injection sites. Refills: 0. ?? torsemide (torsemide 20 mg oral tablet)3 tab Oral (given by mouth) 2 times a day. TWICE DAIY.. Refills: 3. Problem List/Past Medical History Ongoing Aortic stenosis Asthma Autoimmune thyroiditis Bilateral lower extremity edema Constipation Developmental disorder Erythroderma Gout HLD (hyperlipidemia) HTN (hypertension) Hypothyroidism Idiopathic sleep related non-obstructive alveolar hypoventilation Intermenstrual bleeding - irregular Irregular sleep-wake pattern Localized edema Mediastinal adenopathy Morbid obesity Obstructive sleep apnea syndrome HOLLIE treated with BiPAP Palpitations Periodic limb movement disorder Peripheral edema Pneumonia Pulmonary hypertension Steatohepatitis Tachycardia Tension-type headache Thyroid nodule Type 1 diabetes Historical No qualifying data Procedure/Surgical History ???Due 10/2025 (10/31/2022)???ORIF - Open reduction and internal fixation of fracture (12/22/2020)???Adenoidectomy (09/10/2013)???Tonsillectomy (09/10/2003) Medication Administration Given D5-0.9NaCl, 1000 mL, IV acetaminophen, 650 mg, Oral ipratropium-albuterol 0.5 mg-2.5 mg/3 mL inhalation solution, 3 mL, Inhale SOLU-Medrol, 125 mg, Slow IV Push vancomycin, 2000 mg, IV Piggyback Zosyn, IV Piggyback Allergies rOPINIRole morphine oxyCODONE Social History Alcohol [...] and Differential?? LATEST RESULTS?? HISTORICAL RESULTS?? WBC?? 02/05/24 18:24?? 7.7?? 02/04/24?? 10.7 ??High?? RBC?? 02/05/24 18:24?? 3.7 ??Low?? 02/04/24?? 3.5 ??Low?? Hgb?? 02/05/24 18:24?? 10.9 ??Low?? 02/04/24?? 10.2 ??Low?? Hct?? 02/05/24 18:24?? 34.2 ??Low?? 02/04/24?? 31.8 ??Low?? MCV?? 02/05/24 18:24?? 91.9?? 02/04/24?? 91.1?? MCH?? 02/05/24 18:24?? 29.3?? 02/04/24?? 29.2?? MCHC?? 02/05/24 18:24?? 31.9?? 02/04/24?? 32.1?? RDW-CV?? 02/05/24 18:24?? 16.1 ??High?? 02/04/24?? 16.4 ??High?? Platelets?? 02/05/24 18:24?? 223?? 02/04/24?? 227?? Neutro Auto?? 02/05/24 18:24?? 66.3?? 10/31/23?? 71.2?? Lymph Auto?? 02/05/24 18:24?? 23.0?? 10/31/23?? 16.5 ??Low?? [place] Auto?? 02/05/24 18:24?? 5.4?? 10/31/23?? 6.8?? Eos, Auto?? 02/05/24 18:24?? 4.5?? 10/31/23?? 4.5?? Basophil Auto?? 02/05/24 18:24?? 0.3?? 10/31/23?? 0.5?? Imm Gran Auto?? 02/05/24 18:24?? 0.5?? 10/31/23?? 0.5?? Neutro Absolute?? 02/05/24 18:24?? 5.1?? 10/31/23?? 2.8? Blood Gases?? LATEST RESULTS?? HISTORICAL RESULTS?? pH Mirza?? 02/05/24 21:05?? 7.37?? 02/02/24?? 7.40?? pCO2 Mirza?? 02/05/24 21:05?? 47?? 02/02/24?? 51 ??High?? pO2 Mirza?? 02/05/24 21:05?? 87?? 02/02/24?? 16?? HCO3 Venous?? 02/05/24 21:05?? 27?? 02/02/24?? 31 ??High?? O2 Sat Mirza?? 02/05/24 21:05?? 98?? 02/02/24?? 22?? CO2 Total Venous?? 02/05/24 21:05?? 28?? 02/02/24?? 33?? Base Excess Venous?? 02/05/24 21:05?? 1.1?? 02/02/24?? 5.3? Routine Chemistry?? LATEST RESULTS?? HISTORICAL RESULTS?? Sodium Level?? 02/05/24 18:24?? 145?? 02/04/24?? 138?? Potassium Level?? 02/05/24 18:24?? 4.3?? 02/04/24?? 4.0?? Chloride Level?? 02/05/24 18:24?? 106?? 02/04/24?? 101?? CO2?? 02/05/24 18:24?? 26?? 02/04/24?? 24?? Alk Phos?? 02/05/24 18:24?? 388 ??High?? 02/02/24?? 307 ??High?? AST?? 02/05/24 18:24?? 200 ??High?? 02/02/24?? 153 ??High?? ALT?? 02/05/24 18:24?? 258 ??High?? 02/02/24?? 190 ??High?? BUN?? 02/05/24 18:24?? 28 ??High?? 02/04/24?? 36 ??High?? Glucose Level?? 02/05/24 18:24?? 98?? 02/04/24?? 179 ??High?? Creatinine Level?? 02/05/24 18:24?? 0.98?? 02/04/24?? 1.17 ??High?? eGFR AA?? 02/05/24 18:24?? 81?? 02/04/24?? 66?? eGFR Non-AA?? 02/05/24 18:24?? 81?? 02/04/24?? 66?? Calcium Level?? 02/05/24 18:24?? 10.3 ??High?? 02/04/24?? 8.8?? Protein Total?? 02/05/24 18:24?? 8.4 ??High?? 02/02/24?? 8.5 ??High?? Albumin Level?? 02/05/24 18:24?? 3.3 ??Low?? 02/02/24?? 4.0?? Bilirubin Total?? 02/05/24 18:24?? 1.0?? 02/02/24?? 0.7?? Lactic Acid Lvl?? 02/05/24 21:05?? <0.8 ??Low?? 02/02/24?? 1.5? UA Macroscopic?? LATEST RESULTS?? HISTORICAL RESULTS?? UA Color?? 02/05/24 19:55?? Yellow?? 02/02/24?? Yellow?? UA Appear?? 02/05/24 19:55?? Clear?? 02/02/24?? Clear?? UA Glucose?? 02/05/24 19:55?? Negative?? 02/02/24?? Negative?? UA Bili?? 02/05/24 19:55?? Negative?? 02/02/24?? Negative?? UA Ketones?? 02/05/24 19:55?? Negative?? 02/02/24?? Negative?? UA Spec Grav?? 02/05/24 19:55?? <=1.005?? 02/02/24?? <=1.005?? UA Blood?? 02/05/24 19:55?? Negative?? 02/02/24?? Negative?? UA pH?? 02/05/24 19:55?? 6.0?? 02/02/24?? 6.5?? UA Protein?? 02/05/24 19:55?? 1+ Abnormal?? 02/02/24?? Negative?? UA Urobilinogen?? 02/05/24 19:55?? Normal?? 02/02/24?? Normal?? UA Nitrite?? 02/05/24 19:55?? Negative?? 02/02/24?? Negative?? UA Leuk Est?? 02/05/24 19:55?? Negative?? 02/02/24?? Negative?? UA Culture Ind?.?? 02/05/24 19:55?? Not Indicated?? 07/08/23?? Not Applicable? UA Microscopic?? LATEST RESULTS?? HISTORICAL RESULTS?? UA WBC?? 02/05/24 19:55?? 0-3?? 07/08/23?? 0-3?? UA RBC?? 02/05/24 19:55?? 0-2?? 07/08/23?? 0-2?? UA Squam Epithelial?? 02/05/24 19:55?? Few Abnormal?? 07/08/23?? Rare?? UA Mucous?? 02/05/24 19:55?? None Seen?? 07/08/23?? None Seen?? UA Bacteria?? 02/05/24 19:55?? Rare?? 07/08/23?? Rare? Infectious Disease?? LATEST RESULTS?? HISTORICAL RESULTS?? SARS-CoV-2(Covid19)PCR([facility] COVFLURSV)?? 02/05/24 18:24?? Negative?? 02/02/24?? Negative?? Flu A ([facility] COVFLURSV)?? 02/05/24 18:24?? Negative?? 02/02/24?? Negative?? Flu B ([facility] COVFLURSV)?? 02/05/24 18:24?? Negative?? 02/02/24?? Negative?? RSV ([facility] COVFLURSV)?? 02/05/24 18:24?? Negative?? 02/02/24?? Negative? Electronically Signed on 02/05/2024 22:15 EDT Ritika Duke MD Emergency department Note * Clarisse Mcclelland: PERFORM Event Display: ED Notes Authored Date: [id number] Patient Care team information Care Team Personnel Name: Jamila Archer MD Position: Physician Member Role: Informed Provider Address: Address: [address] [place] [address] [place], [place] [address] Name: Shila Krueger Position: Ambulatory - RN/LIABILITY CLAIMS ADJUSTER (Michael) Member Role: Caul Puller Care Team Related Persons Name: LAUREN WALLACE Name: ELLIS GRAMAJO Address: Home [address] [place], [id number]
--- OUTSIDE RECORDS SUMMARY | 2024-02-29 19:09 | XMS_ITS | Continuity of Care Document ---
Author Name Unknown Organization [facility] Address [address] [place] [address] Care Team Providers Care Biomaterials Engineer Name Role Phone Jamila Archer Primary Care Physician Encounter [facility] Date(s): 07/16/23 - 07/16/23 [facility] [address] [place] [address] Discharge Disposition: Home or Self Care Attending Physician: Hortensia Nieto MD Admitting Physician: Hortensia Nieto MD Referring Physician: Hortensia Nieto MD Allergies, Adverse Reactions, Alerts Substance Reaction Severity Status morphine Unknown Active rOPINIRole Severe Active Assessment and Plan Future Appointments Future Scheduled Tests Laboratory* Basic Metabolic Panel 01/10/23 * Basic Metabolic Panel 05/29/23 * Basic Metabolic Panel 02/20/23 * CBC w/ Diff 05/01/23 * Comprehensive Metabolic Panel 05/01/23 * Lipid Panel 05/01/23 * Magnesium Level 05/01/23 * SARS-CoV-2 (COVID-19)/Flu/RSV ([facility]) 08/21/22 * Hemoglobin A1c 05/01/23 Radiology* XR Spine Lumbosacral 4+ Views 02/27/23 [...] instructions, # 500 EA, 0 Refill(s), Pharmacy: [facility] [id number] Start Date: 09/08/22 Status: Ordered cetirizine 10 mg oral tablet 1 tab, Oral, BID, # 60 tab, 0 Refill(s), Pharmacy: [facility] [id number], 149, cm, 03/22/23 10:48:00 EDT, Height/Length Dosing, 129.7, kg, 03/22/23 10:48:00 EDT, Weight Dosing Start Date: 07/02/23 Status: Ordered Dexcom G6 sensors Dexcom G6 sensors, To check BS 4x daily, Supply, See instructions, # 6 EA, 0 Refill(s), Pharmacy: [facility] [id number] Start Date: 11/24/22 Status: Ordered Dexcom Sensors G6, change every 10 days Dexcom Sensors G6, change every 10 days, Use for BS monitoring, Supply, See instructions, # 4 EA, 3Refill(s), Pharmacy: [facility] [id number] Start Date: 01/16/23 Status: Ordered Dexcom Transmitter, change every 3 months Dexcom Transmitter, change every 3 months, Use to monitor BS, Supply, See instructions, # 1 EA, 3 Refill(s), Pharmacy: [facility] [id number] Start Date: 04/11/23 Status: Ordered elderberry 350 [...] 0 Refill(s) Start Date: 07/08/23 Status: Ordered ONETOUCH VERIO FLEX KIT ONETOUCH VERIO FLEX KIT, 1 each by [facility]. (non drug: combo route) route 4 times daily. Start Date: 03/02/22 Status: Ordered ONETOUCH VERIO MARLENE ONETOUCH VERIO MARLENE, Test blood glucose withone new test strip 4 times daily Start Date: 03/02/22 Status: Ordered Probichew oral tablet, chewable 1 tab, Oral, Daily, 0 Refill(s) Start Date: 07/08/23 Status: Ordered senna 25 mg oral tablet 25 mg = 1 tab, Oral, Daily, 0 Refill(s) Start Date: 07/09/23 Status: Ordered torsemide 20 mg oral tablet 60 mg = 3 tab, Oral, BID, take 3 tablets to equal 60mg twice daily, # 180 tab, 4 Refill(s), Pharmacy: [id number], 149, cm, 12/31/22 3:07:00 EDT, Height/Length Dosing, 150, kg, 12/31/22 3:07:00 EDT, Weight Dosing Start Date: 02/28/23 Status: Ordered vancomycin 125 mg oral capsule 125 mg = 1 cap, Oral, QID, # 40 cap, 0 Refill(s), Pharmacy: [id number], 149, cm, 07/08/23 18:54:00 EDT, Height/Length Dosing, 131, kg, 07/08/23 18:54:00 EDT, Weight Dosing Start Date: 07/11/23 Stop Date: 07/21/23 Status: Ordered Problem List Condition Confirmation Course Effective Dates Status H ealth Status Informant Aortic stenosis Confirmed Active Autoimmune thyroiditis Confirmed Active Bilateral lower extremity edema Confirmed Active Clostridioides difficile 1 Confirmed 07/09/23 Active Constipation Confirmed Active Developmental disorder Confirmed [...] Palpitations Confirmed Active Peripheral edema Confirmed Active Pulmonary hypertension Confirmed Active Tachycardia [...] 4with adenoidectomy Results Laboratory List Name Date Basic Metabolic Panel (BMP) 07/16/23 CBC w/o Diff (CBC) 07/16/23 Most recent to oldest [Reference Range]: 1 WBC [5.0-10.0 x10^3/mcL] 8.2 x10^3/mcL (07/16/23 3:39 PM) RBC [4.1-5.3 x10^6/mcL] 3.8 x10^6/mcL *LOW* (07/16/23 3:39 PM) BUN [7-18 mg/dL] 48 mg/dL *HI* (07/16/23 3:39 PM) Glucose Level [74-106 mg/dL] 202 mg/dL *HI* (07/16/23 3:39 PM) Potassium Level [3.5-5.1 mmol/L] 3.9 mmo l/L (07/16/23 3:39 PM) MCV [80.0-96.0 fL] 92.9 fL (07/16/23 3:39 PM) MCHC [31.0-35.0 g/dL] 32.8 g/dL (07/16/23 3:39 PM) Sodium Level [136-145 mmol/L] 139 mmol/L (07/16/23 3:39 PM) Hct [37.0-47.0 %] 35.4 % *LOW* (07/16/23 3:39 PM) Calcium Level [8.5-10.1 mg/dL] 9.4 mg/dL (07/16/23 3:39 PM) MCH [26.0-32.0 pg] 30.4 pg (07/16/23 3:39 PM) Hgb [12.0-16.0 g/dL] 11.6 g/dL *LOW* (07/16/23 3:39 PM) Platelets [130-450 x10^3/mcL] 254 x10^3/ mcL (07/16/23 3:39 PM) CO2 [21-32 mmol/L] 29 mmol/L (07/16/23 3:39 PM) eGFR Non-AA [>=60] 55 *LOW* (07/16/23 3:39 PM) eGFR AA [>=60] 55 *LOW* (07/16/23 3:39 PM) Chloride Level [98-107 mmol/L] 100 mmol/ L (07/16/23 3:39 PM) RDW-CV [11.5-14.5 %] 14.4 % (07/16/23 3:39 PM) Creatinine Level [0.55-1.02 mg/dL] 1.36 mg/dL *HI* (07/16/23 3:39 PM) Social History Social History Type Response Tobacco Never tobacco user T obacco Use:. Sex Female Patient Care team information Care Team Personnel Name: Jamila Archer MD Position: Physician Member Role: Primary Care Physician Address: Address: [place] [address]- [place] Name: Shila Krueger Position: Ambulatory - RN/MOLDER MACHINE ([facility]) Member Role: Joint Supervisor Name: Hortensia Nieto MD Position: Physician Member Role: Informed Provider Address: Address: [address] [place] [address] Care Team Related Persons Name: EMILIO PATHAK Address: Home [address] [facility] [address] [facility] [id number] Name: ELLIS GRAMAJO Address: Home [address] [place], [id number]
--- OUTSIDE RECORDS SUMMARY | 2024-02-29 19:09 | XMS_ITS | Continuity of Care Document ---
Author Name Unknown Organization [facility] Address [address] [place] [address] Care Team Providers Care Stem Crusher Name Role Phone Jamila Archer Primary Care Physician [phone] Encounter NCTY_MO Date(s): 12/30/22 - 01/02/23 [facility] [address] [place] [address] Encounter Diagnosis Yeast infection(Discharge Diagnosis) - 01/02/23 Acute respiratory failure with hypoxia(Final) - Pneumonia, unspecified organism(Final) - Acute diastolic (congestive) heart failure(Final) - Type 1 diabetes mellitus without complications(Final) - Essential (primary) hypertension(Final) - Hyperlipidemia, unspecified(Final) - Morbid (severe) obesity due to excess calories(Final) - Obstructive sleep apnea (adult) (pediatric)(Final) - Hypothyroidism, unspecified(Final) - Localized enlarged lymph nodes(Final) - Pulmonary hypertension, unspecified(Final) - Nontoxic single thyroid nodule(Final) - Candidiasis, unspecified(Final) - Pneumonia(Discharge Diagnosis) - 12/31/22 Acute hypoxemic respiratory failure(Discharge Diagnosis) - 12/31/22 Hypothyroidism(Discharge Diagnosis) - 12/31/22 Pulmonary hypertension(Discharge Diagnosis) - 01/01/23 Type 1 diabetes(Discharge Diagnosis) - 12/31/22 HTN (hypertension)(Discharge Diagnosis) - 12/31/22 HLD (hyperlipidemia)(Discharge Diagnosis) - 12/31/22 Morbid obesity(Discharge Diagnosis) - 12/31/22 HOLLIE treated with BiPAP(Discharge Diagnosis) - 12/31/22 Thyroid nodule(Discharge Diagnosis) - 12/31/22 Mediastinal adenopathy(Discharge Diagnosis) - 12/31/22 Discharge Disposition: Home or Self Care Attending Physician: Hortensia Nieto MD Admitting Physician: 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 Allergies, Adverse Reactions, Alerts Substance Reaction Severity Status morphine Unknown Active rOPINIRole Severe Active Assessment and Plan Future Appointments Future Scheduled Tests Laboratory* SARS-CoV-2 (COVID-19)/Flu/RSV ([facility]) 08/21/22 Functional Status 01/02/23 Living Environment Living Situation: Ho me independently Current Home Treatments: Home Devices/Equipment BiPAP unit Professional Skilled Services: Special Services and Community Resources: Sensory Deficits: Performed by: Dena Hernandez01/01/23 14:05:00 Lives In Multilevel home Lives With Family Living Situation Home independently Home Barriers None Patient's Responsibilities Financial man agement, 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, Home management, Housework, Laundry, Meal preparation Number of Stairs Inside 12 01/02/23 Breakfast Percent 100 01/01/23 Personal Care Provided Hair care, Linen change, Shampoo, Shower 01/01/23 Home Equipment BiPAP unit 12/31/22 Dinner Percent 100 12/31/22 Lunch Percent 100 12/31/22 Family Member Travel History No recent t ravel Recent Travel History No recent travel Other [...] EA, 0 Refill(s), Pharmacy: [id number] Start Date: 09/08/22 Status: Ordered cefpodoxime 200 mg oral tablet 200 mg = 1 tab, Oral, every 12 hr, # 20 tab, 0 Refill(s), Pharmacy: [place] [id number], 149, cm,12/31/22 3:07:00 EDT, Height/Length Dosing, 150, kg, 12/31/22 3:07:00 EDT, Weight Dosing Start Date: 01/02/23 Stop Date: 01/12/23 Status: Ordered Dexcom G6 sensors Dexcom G6 sensors, To check BS 4x daily, Supply, See instructions, # 6 EA, 0 Refill(s), Pharmacy: [id number] Start Date: 11/24/22 Status: Ordered Diflucan 150 mg oral tablet 150 mg = 1 tab, Oral, Once, Can repeat in 3 days if symptoms persist, # 2 tab, 0 Refill(s), Pharmacy: [place] [id number], 149, cm, 12/31/22 3:07:00 EDT, Height/Length Dosing, 150, kg, 12/31/22 3:07:00 EDT, Weight Dosing Start Date: 01/02/23 Status: Ordered ergocalciferol 1.25 mg (50,000 intl units) oral capsule 50,000 IntlUnit = 1 cap, Oral, every week Start Date: 03/02/22 Status: Ordered FUTURO COMPRESSION SOCKS FUTURO COMPRESSION SOCKS, rt leg: length 45cm, calf 52cm, ankle 30cm lt leg: length 45cm, calf 53cm, ankle 30cm, Supply, See instructions, # 1 EA, 0 Refill(s) Start Date: 12/20/22 Status: Ordered FUTURO COMPRESSION SOCKS FUTURO COMPRESSION SOCKS, FUTURO COMPRESSION SOCKS, Supply, See instructions, # 1 EA, 0 Refill(s), Pharmacy: [id number] Start Date: 12/18/22 Status: Ordered Glucagon Emergency Kit for Low [...] dose., # 90 tab, 3 Refill(s), Pharmacy: [id number], 150, cm, 10/27/22 6:33:00 EST, Height/Length D... Start Date: 10/27/22 Status: Ordered levothyroxine 125 mcg (0.125 mg) oral tablet 125 mcg = 1 tab, Oral, Daily, Take one tablet by mouth with water a half hour before eating or taking any other medication. Take with 100 mcg dose., # 90 tab, 3 Refill(s), Pharmacy: [id number], 150, cm, 10/27/22 6:33:00 EST, Height/Length D... Start Date: 10/27/22 Status: Ordered lisinopril 10 mg = 2 tab, Oral, Tab, First Dose: 01/02/23 9:00:00 EDT Start Date: 01/02/23 Stop Date: 01/02/23 Status: Completed lisinopril 10 mg oral tablet 10 mg = 1 tab, Oral, Daily, for 90 days- dose change 10/20/2021, # 90 tab, 3 Refill(s), Pharmacy: [id number], 150, cm, 08/09/22 1:15:00 EST, Height/Length Dosing, 127.01, kg, 08/09/22 1:15:00 EST, Weight Dosing Start Date: 10/05/22 Status: Ordered multivitamin adult, oral tablet 1 tab, Oral, Daily, # 90 tab, 0 Refill(s), other reason (Rx) Start Date: 03/24/22 Status: Ordered ONETOUCH VERIO FLEX KIT ONETOUCH VERIO FLEX KIT, 1 each [place] [facility] (non drug: combo route) route 4 times daily. Start Date: 03/02/22 Status: Ordered ONETOUCH VERIO MARLENE ONETOUCH VERIO MARLENE, Test blood glucose withone new test strip 4 times daily Start Date: 03/02/22 Status: Ordered Tessalon Perles 100 mg oral capsule 200 mg = 2 cap, Oral, TID, PRN as needed for cough, do not crush or chew, # 84 cap, 0 Refill(s), Pharmacy: [id number], 149, cm, 12/31/22 3:07:00 EDT, Height/Length Dosing, 150, kg, 12/31/22 3:07:00 EDT, Weight Dosing Start Date: 01/02/23 Stop Date: 01/16/23 Status: Ordered torsemide 20 mg oral tablet 1 tab, Oral, TID, PRN IF NEEDED, # 90 tab, 1 Refill(s), Pharmacy: [facility], 150, cm, 10/27/22 6:33:00 EST, Height/Length Dosing, 127, kg, 10/27/22 6:33:00 EST, Weight Dosing Start Date: 11/13/22 Status: Ordered triamcinolone 0.1% topical cream 1 [place], Topical, BID, # 60 g, 0 Refill(s), Pharmacy: [facility], 150, cm, 11/18/22 19:16:00 EST, Height/Length Dosing, 127, kg, 11/18/22 19:16:00 EST, Weight Dosing Start Date: 12/18/22 Stop Date: 12/28/22 Status: Ordered Trulicity Pen 0.75 mg/0.5 mL subcutaneous solution 0.75 mg = 0.5 mL, Subcutaneous, every week, rotate injection sites, # 2 mL, 0 Refill(s) Start Date: 01/01/23 Status: Ordered Vitamin C 500 mg oral tablet 500 mg = 1 tab, Oral, Daily, # 30 tab, 0 Refill(s), other reason (Rx) Start Date: 03/24/22 Status: Ordered Zithromax 500 mg oral tablet 500 mg = 1 tab, Oral, Daily, # 5 tab, 0 Refill(s), Pharmacy: [place] [address], 149, cm, 12/31/22 3:07:00 EDT, Height/Length Dosing, 150, kg, 12/31/22 3:07:00 EDT, Weight Dosing Start Date: 01/02/23 Stop Date: 01/07/23 Status: Ordered ZyrTEC-D 5 mg-120 mg oral tablet, extended release 1 tab, Oral, every 24 hr, # 30 tab, 0 Refill(s), Pharmacy: [id number], 150, cm, 226:18:00 EDT, Height/Length Dosing, 129, kg, 03/14/22 6:18:00 EDT, Weight Dosing Start Date: 03/23/22 Status: Ordered Problem List Condition Confirmation Course Effective Dates Status H ealth Status Informant Adult health examination Confirmed Active Autoimmune thyroiditis Confirmed Active Bilateral lower extremity edema Confirmed Active Developmental disorder Confirmed Active Diabetic ketoacidosis Confirmed Active Erythroderma Confirmed Active Hyperlipidemia Confirmed Active HLD (hyperlipidemia) Confirmed Active Hypertensive disorder Confirmed Active HTN (hypertension) Confirmed Active 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 Intermenstrual bleeding - irregular Confirmed Active Irregular sleep-wake pattern Confirmed Active Kidney disease Confirmed Active Localized edema Confirmed Active Mediastinal adenopathy Confirmed Active Morbid obesity Confirmed Active Obesity Confirmed Active Obstructive sleep apnea syndrome Confirmed Active HOLLIE treated with BiPAP Confirmed Active Pulmonary hypertension Confirmed Active Severe obesity Confirmed Active Tachycardia [...] 4with adenoidectomy Results Laboratory List Name Date Glucose POCT 01/02/23 Glucose POCT 01/02/23 Automated Diff 01/02/23 Basic Metabolic Panel 01/02/23 CBC w/ Diff 01/02/23 Magnesium Level 01/02/23 Glucose POCT 01/02/23 Basic Metabolic Panel 01/01/23 CBC w/ Diff 01/01/23 Magnesium Level 01/01/23 Automated Diff 01/01/23 Glucose Level 12/31/22 Basic Metabolic Panel 12/31/22 CBC w/ Diff 12/31/22 Magnesium Level 12/31/22 Automated Diff 12/31/22 Blood Gas Arterial (ABG) 12/30/22 Beta hCG Quantitative 12/30/22 NT- Pro BNP 12/30/22 Troponin-I 12/30/22 SARS-CoV-2 (COVID-19)/Flu/RSV ([facility] ) (COVID-19/Flu/RSV ([facility])) 12/30/22 Most recent to oldest [Reference Range]: 1 2 3 pCO2 Art [33-47 mmHg] 45 mmHg (12/30/22 11:45 PM) pH Art [7.35-7.45 pH unit(s)] 7.39 pH unit(s) (12/30/22 11:45 PM) pO2 Art [80-100 mmHg] 94 mmHg (12/30/22 11:45 PM) WBC [5.0-10.0 x10^3/mcL] 10.3 x10^3/mcL *HI* (01/02/23 7:00 AM) 13.0 x10^3/mcL *HI* (01/01/23 7:07 AM) 10.4 x10^3/mcL *HI* (12/31/22 7:30 AM) RBC [4.1-5.3 x10^6/mcL] 3.8 x10^6/mcL *LOW* (01/02/23 7:00 AM) 3.9 x10^6/mcL *LOW* (01/01/23 7:07 AM) 4.0 x10^6/mcL *LOW* (12/31/22 7:30 AM) Neutro Auto [40.0-75.0 %] 52.2 % (01/02/23 7:00 AM) 70.5 % (01/01/23 7:07 AM) 78.0 % *HI* (12/31/22 7:30 AM) Lymph Auto [20.0-50.0 %] 34.9 % (01/02/23 7:00 AM) 22.1 % (01/01/23 7:07 AM) 17.2 % *LOW* (12/31/22 7:30 AM) [place] Auto [2.0-15.0 %] 7.2 % (01/02/23 7:00 AM) 5.0 % (01/01/23 7:07 AM) 1.7 % *LOW* (12/31/22 7:30 AM) Basophil Auto [0.0-1.0 %] 0.5 % (01/02/23 7:00 AM) 0.3 % (01/01/23 7:07 AM) 0.4 % (12/31/22 7:30 AM) BUN [7-18 mg/dL] 35 mg/dL *HI* (01/02/23 7:00 AM) 43 mg/dL *HI* (01/01/23 7:07 AM) 25 mg/dL *HI* (12/31/22 7:30 AM) Glucose POC [74-106 mg/dL] 159 mg/dL *HI* (01/02/23 11:19 AM) 295 mg/dL *HI* (01/02/23 7:19 AM) 52 mg/dL *LOW* (01/02/23 1:12 AM) Glucose Level [74-106 mg/dL] 268 mg/dL *HI* (01/02/23 7:00 AM) 214 mg/dL *HI* (01/01/23 7:07 AM) 456 mg/dL *HI* (12/31/22 4:55 PM) Potassium Level [3.5-5.1 mmol/L] 5.0 mmol/L (01/02/23 7:00 AM) 4.3 mmol/L (01/01/23 7:07 AM) 5.2 mmol/L *HI* (12/31/22 7:30 AM) MCV [80.0-96.0] 94.0 (01/02/23 7:00 AM) 93.9 (01/01/23 7: AM) 95.2 (12/31/22 7:30 AM) MCHC [31.0-35.0 g/dL] 31.8 g/dL (01/02/23 7:00 AM) 31.3 g/dL (01/01/23 7:07 AM) 30.8 g/dL *LOW* (12/31/22 7:30 AM) Troponin-I [0.0-51.4 pg/mL] 14.2 pg/mL (12/30/22 8:08 PM) Sodium Level [136-145 mmol/L] 136 mmol/L (01/02/23 7:00 AM) 135 mmol/L *LOW* (01/01/23 7:07 AM) 137 mmol/L (12/31/22 7:30 AM) Hct [37.0-47.0 %] 35.9 % *LOW* (01/02/23 7:00 AM) 36.7 % *LOW* (01/01/23:07 AM) 37.7 % (12/31/22 7:30 AM) Calcium Level [8.5-10.1 mg/dL] 8.8 mg/dL (01/02/23 7:00 AM) 8.9 mg/dL (01/01/23 7:07 AM) 9.4 mg/dL (12/31/22 7:30 AM) MCH [26.0-32.0 pg] 29.8 pg (01/02/23:00 AM) 29.4 pg (01/01/23: AM) 29.3 pg (12/31/22 7:30 AM) Magnesium Level [1.8-2.4 mg/dL] 2.5 mg/dL *HI* (01/02/23 7:00 AM) 2.4 mg/dL (01/01/23:07 AM) 2.1 mg/dL (12/31/22 7:30 AM) Neutro Absolute 5.4 x10^3/mcL *NA* (01/02/23 7:00 AM) 9.1 x10^3/mcL *NA* (01/01/23 7:07 AM) 8.1 x10^3/mcL *NA* (12/31/22 7:30 AM) Hgb [12.0-16.0 g/dL] 11.4 g/dL *LOW* (01/02/23 7:00 AM) 11.5 g/dL *LOW* (01/01/23 7:07 AM) 11.6 g/dL *LOW* (12/31/22 7:30 AM) FiO2 Arterial 4L oxy mask *NA* (12/30/22 11:45 PM) CO2 Total Arterial 29 mmol/L *NA* (12/30/22 11:45 PM) Platelets [130-450 x10^3/mcL] 228 x10^3/mcL (01/02/23 7:00 AM) 315 x10^3/mcL (01/01/23 7:07 AM) 281 x10^3/mcL (12/31/22 7:30 AM) CO2 [21-32 mmol/L] 27 mmol/L (01/02/23 7:00 AM) 28 mmol/L (01/01/23 7:07 AM) 28 mmol/L (12/31/22 7:30 AM) eGFR Non-AA [>=60] 91 (01/02/23 7:00 AM) 78 (01/01/23 7:07 AM) 74 (12/31/22 7:30 AM) eGFR AA [>=60] 91 (01/02/23 7:00 AM) 78 (01/01/23 7:07 AM) 74 (12/31/22 7:30 AM) Base Excess Arterial 1.9 mmol/L *NA* (12/30/22 11:45 PM) NT-proBNP [0-125 pg/mL] 492 pg/mL *HI* (12/30/22 8:08 PM) Chloride Level [98-107 mmol/L] 99 mmol/L (01/02/23 7:00 AM) 95 mmol/L *LOW* (01/01/23 7:07 AM) 98 mmol/L (12/31/22 7:30 AM) RDW-CV [11.7-17.0 %] 16.4 % (01/02/23 7:00 AM) 16.0 % (01/01/23 7:07 AM) 16.2 % (12/31/22 7:30 AM) Otoniel Test Art N/A (12/30/22 11:45 PM) Imm Gran Auto [0.0-0.9 %] 1.1 % *HI* (01/02/23 7:00 AM) 1.4 % *HI* (01/01/23 7:07 AM) 1.3 % *HI* (12/31/22 7:30 AM) Puncture Site Left Radial (12/30/22 11:45 PM) Eloy-Art Gradient 98 % *NA* (12/30/22 11:45 PM) Creatinine Level [0.55-1.02 mg/dL] 0.90 mg/dL (01/02/23 7:00 AM) 1.02 mg/dL (01/01/23 7:07 AM) 1.07 mg/dL *HI* (12/31/22 7:30 AM) HCO3 Art 27 mmol/L *NA* (12/30/22 11:45 PM) Employed 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 No *NA* (12/30/22 7:13 PM) Symptomatic as defined by CDC? No *NA* (12/30/22 7:13 PM) Hospitalized due to COVID-19? No *NA* (12/30/22 7:13 PM) In ICU? No *NA* (12/30/22 7:13 PM) Group care resident? No *NA* (12/30/22 7:13 PM) status? Unknown *NA* (12/30/22 7:13 PM) SARS-CoV-2(Covid19)PCR(GXper t COVFLURSV) [Negative] Negative (12/30/22 7:13 PM) Flu A ([facility] COVFLURSV) [Negative] Negative (12/30/22 7:13 PM) RSV ([facility] COVFLURSV) [Negative] Negative (12/30/22 7:13 PM) Flu B ([facility] COVFLURSV) [Negative] Negative (12/30/22 7:13 PM) Eos, Auto [1.0-6.0 %] 4.1 % (01/02/23 7:00 AM) 0.7 % *LOW* (01/01/23 7:07 AM) 1.4 % (12/31/22 7:30 AM) Beta hCG Qnt [1-6 mIntlUnit/mL] <1 mIntlUnit/mL *LOW* (12/30/22 8:08 PM) O2 Sat Art [95-98 %] 98 % (12/30/22 11:45 PM) Orders for Microbiology Reports Name Date Blood Culture 12/30/22 Blood Culture 12/30/22 Microbiology Reports TEST:Blood Culture STATUS:Order in Progress BODY SITE: SOURCE:Blood COLLECTED DATE/TIME:12/30/22 10:40 PM PRELIMINARY REPORT No growth at 24 hours. TEST:Blood Culture STATUS:Order in Progress BODY SITE: SOURCE:Blood COLLECTED DATE/TIME:12/30/22 10:40 PM PRELIMINARY REPORT No growth at 24 hours. Vital Signs Most recent to oldest [Reference Range]: 1 2 3 Temperature Temporal Artery [36-38 Deg C] 36.4 Deg C (01/02/23 10:20 AM) 36.3 Deg C (01/02/23 6:51 AM) 35 Deg C *LOW* (01/02/23 1:55 AM) Apical Heart Rate [60-100 bpm] 78 bpm (01/02/23 8:44 AM) Peripheral Pulse Rate [60-100 bpm] 93 bpm (01/02/23 10:20 AM) 89 bpm (01/02/23 6:51 AM) 93 bpm (01/02/23 1:55 AM) Heart Rate Monitored [60-100 bpm] 91 bpm (01/02/23 8:44 AM) 91 bpm (01/02/23 7:15 AM) 93 bpm (12/31/22 10:56 PM) Respiratory Rate [12-24 br/min] 20 br/min (01/02/23 10:20 AM) 18 br/min (01/02/23 7:15 AM) 18 br/min (01/02/23 6:51 AM) Blood Pressure [90-140/60-90 mmHg] 130/87mmHg (01/02/23 10:20 AM) 110/76mmHg (01/02/23 6:51 AM) Systolic Blood Pressure [90-140 mmHg] 117 mmHg (01/02/23 1:55 AM) Diastolic Blood Pressure [60-90 mmHg] 121 mmHg *HI* (01/02/23 8:44 AM) Mean Arterial Pressure Cuff 98 mmHg (01/02/23 10:20 AM) 87 mmHg (01/02/23 6:51 AM) 81 mmHg (01/02/23 1:55 AM) Blood Pressure Location Right arm (01/02/23 1:55 AM) Left arm (01/01/23 10:10 PM) Right arm (01/01/23 6:32 PM) Blood Pressure Method Automatic (01/02/23 1:55 AM) Automatic (01/01/23 10:10 PM) Automatic (01/01/23 6:32 PM) Weight 147 kg (12/31/22 6:05 AM) 150.000 kg (12/31/22 3:07 AM) 150 kg (12/30/22 9:32 PM) Weight Dosing 150.000 kg (12/31/22 3:07 AM) 127.00 kg (12/30/22 7:05 PM) Weight Estimated 127.00 kg (12/30/22 6:58 PM) Height 149.000 cm (12/31/22 3:07 AM) Height/Length Dosing 149.000 cm (12/31/22 3:07 AM) 150.000 cm (12/30/22 7:05 PM) Body Mass Index 67.560 kg/m2 (12/31/22 3:07 AM) Height/Length Estimated 150.000 cm (12/30/22 6:58 PM) Social History Social History Type Response Tobacco Never tobacco user T obacco Use:. Sex Female Hospital Discharge Instructions Patient Education 01/02/2023 13:55:35 Hyperglycemia, Uugw-ap-Card Hyperglycemia Hyperglycemia is when the sugar (glucose) level in your blood is too high. High blood sugar can happen to people who have or do not have diabetes. High blood sugar can happen quickly. It can be an emergency. What are the causes? If you have diabetes, high blood sugar may be caused by: ??? Medicines that increase blood sugar or affect your control of diabetes. ??? Getting less physical activity. ??? Overeating. ??? Being sick or injured or having an infection. ??? Having surgery. ??? Stress. ??? Not giving yourself enough insulin (if you are taking it). You may have high blood sugar because you have diabetes that has not been diagnosed yet. If you do not have diabetes, high blood sugar may be caused by: ??? Certain medicines. ??? Stress. ??? A bad illness. ??? An infection. ??? Having surgery. ??? Diseases of the pancreas. What increases the risk? This condition is more likely to develop in people who have risk factors for diabetes, such as: ??? Having a family member with diabetes. ??? Certain conditions in which the body's defense system (immune system) attacks itself. These arecalled autoimmune disorders. ??? Being overweight. ??? Not being active. ??? Having a condition called insulin resistance. ??? Having a history of: ??? Prediabetes. ??? Diabetes when . ??? Polycystic ovarian syndrome (PCOS). What are the signs or symptoms? This condition may not cause symptoms. If you do have symptoms, they may include: ??? Feeling more thirsty than normal. ??? Needing to pee (urinate) more often than normal. ??? Hunger. ??? Feeling very tired. ??? Blurry eyesight (vision). You may get other symptoms as the condition gets worse, such as: ??? Dry mouth. ??? Pain in your belly (abdomen). ??? Not being hungry (loss of appetite). ??? Breath that smells fruity. ??? Weakness. ??? Weight loss that is not planned. ??? A tingling or numb feeling in your hands or feet. ??? A headache. ??? Cuts or bruises that heal slowly. How is this treated? Treatment depends on the cause of your condition. Treatment may include: ??? Taking medicine to control your blood sugar levels. ??? Changing your medicine or dosage if you take insulin or other diabetes medicines. ??? Lifestyle changes. These may include: ??? Exercising more. ??? Eating healthier foods. ??? Losing weight. ??? Treating an illness or infection. ??? Checking your blood sugar more often. ??? Stopping or reducing steroid medicines. If your condition gets very bad, you will need to be treated in the hospital. Follow these instructions at home: General instructions ??? Take [id number] and prescription medicines only as told by your doctor. ??? Do not smoke or use any products that contain nicotine or tobacco. If you need help quitting, ask your doctor. ??? If you drink alcohol: ??? Limit how much you have to: ??? 0???1 drink a day for women who are not . ??? 0???2 drinks a day for men. ??? Know how much alcohol is in a drink. In the [place] one drink equals one 12 oz bottle of beer (355 mL), one 5 oz glass of wine (148 mL), or one 1?? oz glass of hard liquor (44 mL). ??? Manage stress. If you need help with this, ask your doctor. ??? Do exercises as told by your doctor. ??? Keep all follow-up visits. Eating and drinking ??? Stay at a healthy weight. ??? Make sure you drink enough fluid when you: ??? Exercise. ??? Get sick. ??? Are in hot temperatures. ??? Drink enough fluid to keep your pee (urine) pale yellow. If you have diabetes: ??? Know the symptoms of high blood sugar. ??? Follow your diabetes management plan as told by your doctor. Make sure you: ??? Take insulin and medicines as told. ??? Follow your exercise plan. ??? Follow your meal plan. Eat on time. Do not skip meals. ??? Check your blood sugar as often as told. Make sure you check before and after exercise. If you exercise longer or in a different way, check your blood sugar more often. ??? Follow your sick day plan whenever you cannot eat or drink normally. Make this plan ahead of time with your doctor. ??? Share your diabetes management plan with people in your workplace, school, and household. ??? Check your pee for ketones when you are ill and as told by your doctor. ??? Carry a card or wear jewelry that says that you have diabetes. Where to find more information [place] Diabetes Association: www.diabetes.org Contact a doctor if: ??? Your blood sugar level is at or above 240 mg/dL (13.3 mmol/L) for 2 days in a row. ??? You have problems keeping your blood sugar in your target range. ??? You have high blood pressure often. ??? You have signs of illness, such as: ??? Feeling like you may vomit (feeling nauseous). ??? Vomiting. ??? A fever. Get help right away if: ??? Your blood sugar monitor reads high even when you are taking insulin. ??? You have trouble breathing. ??? You have a change in how you think, feel, or act (mental status). ??? You feel like you may vomit, and the feeling does not go away. ??? You cannot stop vomiting. These symptoms may be an emergency. Get medical help right away. Call your local emergency services(911 in the [place] ??? Do not wait to see if the symptoms will go away. ??? Do not drive yourself to the hospital. Summary ??? Hyperglycemia is when the sugar (glucose) level in your blood is too high. ??? High blood sugar can happen to people who have or do not have diabetes. ??? Make sure you drink enough fluids and follow your meal plan. Exercise as often as told by your doctor. ??? Contact your doctor if you have problems keeping your blood sugar in your target range. This information is not intended to replace advice given to you by your health care provider. Make sure you discuss any questions you have with your health care provider. Document Revised: 06/10/2021 Document Reviewed: 06/10/2021 [employer] Patient Education ?? 2021 [employer]. 01/02/2023 13:55:00 Community-Acquired Pneumonia, Adult, Qdha-og-Oiks Community-Acquired Pneumonia, Adult Pneumonia is an infection of the lungs. It causes irritation and swelling in the airways of the lungs. Mucus and fluid may also build up inside the airways. This may cause coughing and trouble breathing. One type of pneumonia can happen while you are in a hospital. A different type can happen when you are not in a hospital (community-acquired pneumonia). What are the causes? This condition is caused by germs (viruses, bacteria, or fungi). Some types of germs can spread from person to person. Pneumonia is not thought to spread from person to person. What increases the risk? You are more likely to develop this condition if: ??? You have a long-term (chronic) disease, such as: ??? Disease of the lungs. This may be chronic obstructive pulmonary disease (COPD) or asthma. ??? Heart failure. ??? Cystic fibrosis. ??? Diabetes. ??? Kidney disease. ??? Sickle cell disease. ??? HIV. ??? You have other health problems, such as: ??? Your body's defense system (immune system) is weak. ??? A condition that may cause you to breathe in fluids from your mouth and nose. ??? You had your spleen taken out. ??? You do not take good care of your teeth and mouth (poor dental hygiene). ??? You use or have used tobacco products. ??? You travel where the germs that cause this illness are common. ??? You are near certain animals or the places they live. ??? You are older than 65 years of age. What are the signs or symptoms? Symptoms of this condition include: ??? A cough. ??? A fever. ??? Sweating or chills. ??? Chest pain, often when you breathe deeply or cough. ??? Breathing problems, such as: ??? Fast breathing. ??? Trouble breathing. ??? Shortness of breath. ??? Feeling tired (fatigued). ??? Muscle aches. How is this treated? Treatment for this condition depends on many things, such as: ??? The cause of your illness. ??? Your medicines. ??? Your other health problems. Most adults can be treated at home. Sometimes, treatment must happen in a hospital. ??? Treatment may include medicines to kill germs. ??? Medicines may depend on which germ caused your illness. Very bad pneumonia is rare. If you get it, you may: ??? Have a machine to help you breathe. ??? Have fluid taken away from around your lungs. Follow these instructions at home: Medicines ??? Take [id number] and prescription medicines only as told by your doctor. ??? Take cough medicine only if you are losing sleep. Cough medicine can keep your body from takingmucus away from your lungs. ??? If you were prescribed an antibiotic medicine, take it as told by your doctor. Do not stop taking the antibiotic even if you start to feel better. Lifestyle ??? Do not drink alcohol. ??? Do not use any products that contain nicotine or tobacco, such as cigarettes, e-cigarettes, andchewing tobacco. If you need help quitting, ask your doctor. ??? Eat a healthy diet. This includes a lot of vegetables, fruits, whole grains, low-fat dairy products, and low-fat (lean) protein. General instructions ??? Rest a lot. Sleep for at least 8 hours each night. ??? Sleep with your head and neck raised. Put a few pillows under your head or sleep in a recliningchair. ??? Return to your normal activities as told by your doctor. Ask your doctor what activities are safe for you. ??? Drink enough fluid to keep your pee (urine) pale yellow. ??? If your throat is sore, rinse your mouth often with salt water. To make salt water, dissolve ?1 tsp (3???6 g) of salt in 1 cup (237 mL) of warm water. ??? Keep all follow-up visits as told by your doctor. This is important. How is this prevented? You can lower your risk of pneumonia by: ??? Getting the pneumonia shot (vaccine). These shots have different types and schedules. Ask your doctor what works best for you. Think about getting this shot if: ??? You are older than 65 years of age. ??? You are 19???65 years of age and: ??? You are being treated for cancer. ??? You have long-term lung disease. ??? You have other problems that affect your body's defense system. Ask your doctor if you have oneof these. ??? Getting your flu shot every year. Ask your doctor which type of shot is best for you. ??? Going to the dentist as often as told. ??? Washing your hands often with soap and water for at least 20 seconds. If you cannot use soap and water, use hand supplier relationship director. Contact a doctor if: ??? You have a fever. ??? You lose sleep because your cough medicine does not help. Get help right away if: ??? You are short of breath and this gets worse. ??? You have more chest pain. ??? Your sickness gets worse. This is very serious if: ??? You are an older adult. ??? Your body's defense system is weak. ??? You cough up blood. These symptoms may be an emergency. Do not wait to see if the symptoms will go away. Get medical help right away. Call your local emergency services (911 in the [place] Do not drive yourself to the hospital. Summary ??? Pneumonia is an infection of the lungs. ??? Community-acquired pneumonia affects people who have not been in the hospital. Certain germs can cause this infection. ??? This condition may be treated with medicines that kill germs. ??? For very bad pneumonia, you may need a hospital stay and treatment to help with breathing. This information is not intended to replace advice given to you by your health care provider. Make sure you discuss any questions you have with your health care provider. Document Revised: 06/08/2020 Document Reviewed: 06/08/2020 Elsevier Patient Education ?? 2021 [employer]. Follow Up Care 12/30/2022 18:58:24 With:Charlie Godinez MD Address: [address] [place] [phone]- When:01/05/2023 08:00:00 Comments:Cardiology appointment With:Ann Marie Lopez MD Address: [address] [place] [address]- When:01/04/2023 Comments:[facility] [place]??ENDOCRINOLOGY- In person visit With:Jasmeet Clark Jr, MD Address: [facility] [place] [address]- [phone] When:02/15/2023 Comments:??[facility] [place] PULMONOLOGY- TELE HEALTH VISIT With:Jamila Archer MD Address: [place] [address]- When:01/16/2023 Comments:HOSPITAL FOLLOW UP Discharge instructions * Antonietta Neil D: PERFORM Event Display: Discharge Instructions Authored Date: [id number] DHARA MIRAMONTES :1995 Age:27 years Sex:Female Visit Date:12/30/2022 Primary Care Physician: Jamila Archer MD Hospital Discharge Instructions We would like to thank you for allowing us to assist you with your healthcare needs. The following includes patient education materials and information regarding your injury/illness. Your Next Steps Instructions From Your Care Team Call your primary care provider for: Temperature greater than 101F. Pain that does not go away. Persistent nausea, vomiting or constipation. Shortness of breath, with or without chest discomfort. Discharge Orders Discharge Activity Restrictions, No Restrictions Discharge Diet Instruction, Consistent Carbohydrate [id number] paz, Diabetic Diet Discharge Patient Instructions, May return to work 01/08/2023. Follow-up specialty visits at [facility] with pulmonology/endocrinology/GI as scheduled 01/04/2023 and [facility] cardiology as scheduled 02/04/2023. Discuss nighttime oxygen with pulmonology while using BiPAP. Discharge Weight, 01/02/23 15:30:00 EDT, Daily, Notify provider if weight gain of 3 pounds in 1 dayor 5 pounds in 1 week Follow Up Appointments Follow Up with??Jasmeet Clark Jr, MD When:??02/15/2023 02:00 AM EDT Why: ??[facility] [place] [place] PULMONOLOGY- TELE HEALTH VISIT Where: [facility] [place] [address]- [phone] Follow Up with??Jamila Archer MD When:??01/16/2023 03:20 AM EDT Why: HOSPITAL FOLLOW UP Where: [facility] [place] [address]- Follow Up with??Charlie Godinez MD When:??01/05/2023 09:00 AM EDT Why: Cardiology appointment Where: [address] [place] [phone]- Follow Up with??Ann Marie Lopez MD When:??01/04/2023 02:00 AM EDT Why: [facility] [place]??ENDOCRINOLOGY- In person visit Where: [address] [place] [address]- The Following Equipment Has Been Ordered for You Home Equipment - BiPAP unit Resume Medications What How Much When Why Instructions Next Dose New azithromycin (Zithromax 500 mg oral tablet) 1 tab Oral (given by mouth) Every day Duration: 5 Days Pickup at [facility] 01/02 @ 8pm New cefpodoxime (cefpodoxime 200 mg oral tablet) 1 tab Oral (given by mouth) Every 12 hours Duration: 10 Days Pickup at [facility] 01/03 @ 1200pm Changed dulaglutide (Trulicity Pen 0.75 mg/ 0.5 mL subcutaneous solution) 0.5 Milliliters Subcutaneous (under the skin) Every week rotate injection sites ?? Resume Changed levothyroxine (levothyroxine 100 mcg (0.1 mg) oral tablet) 1 tab Oral (given by mouth) Every day Hypothyroidism Take one tablet by mouth with water a half hour before eating or taking any other medication. Take with 125 mcg dose. ?? 01/03 @ 7am Changed levothyroxine (levothyroxine 125 mcg (0.125 mg) oral tablet) 1 tab Oral (given by mouth) Every day Hypothyroidism Take one tablet by mouth with water a half hour before eating or taking any other medication. Take with 100 mcg dose. ?? Unchanged ascorbic acid (Vitamin C 500 mg oral tablet) 1 tab Oral (given by mouth) Every day Resume Unchanged atorvastatin (atorvastatin 40 mg oral tablet) 1 tab Oral (given by mouth) Every day 01/02 @ 5pm Unchanged cetirizine-pseudoephedrine (ZyrTEC-D 5 mg-120 mg oral tablet, extended release) 1 tab Oral (given by mouth) Every 24 hours Ear infection resume Unchanged Durable Medical Equipment for Prescription (B-D UF III SHORT PEN NEED MIS) See instructions Use one new pen needle for each insulin injection 5 to 7 times per day as directed in case of pump malfunction ?? Unchanged Durable Medical Equipment for Prescription (Dexcom G6 sensors) See instructions To check BS 4x daily ?? Unchanged Durable Medical Equipment for Prescription (FUTURO COMPRESSION SOCKS) See instructions Stasis dermatitis of both legs Bilateral lower extremity edema FUTURO COMPRESSION SOCKS ?? Unchanged Durable Medical Equipment for Prescription (FUTURO COMPRESSION SOCKS) See instructions rt leg: length 45cm, calf 52cm, ankle 30cm ?? lt leg: length 45cm, calf 53cm, ankle 30cm ?? Unchanged ergocalciferol (ergocalciferol 1.25 mg (50,000 intl units) oral capsule) 1 Capsules Oral (given by mouth) Every week Resume Unchanged fluconazole (Diflucan 150 mg oral tablet) 1 tab Oral (given by mouth) Once Yeast infection Can repeat in 3 days if symptoms persist ?? Pickup at [place] [address] Unchanged glucagon (Glucagon Emergency Kit for Low Blood Sugar) See instructions hypoglycemia symptoms follow instructions per kit, As needed for low blood sugar ?? Unchanged insulin regular (HumuLIN R KwikPen (Concentrated) 500 units/ mL subcutaneous solution) 200 Units Intradermal (in the skin) Before meals correction facter of 50 units ?? Resume before meals Unchanged lisinopril (lisinopril 10 mg oral tablet) 1 tab Oral (given by mouth) Every day for 90 days- dose change 2021 ?? 01/03 @ 9am Unchanged multivitamin (multivitamin adult, oral tablet) 1 tab Oral (given by mouth) Every day 01/03 @ 9am Unchanged Other Prescription (ONETOUCH VERIO FLEX KIT) 1 each [place] [facility] (non drug: combo route) route 4 times daily. ?? Unchanged Other Prescription (ONETOUCH VERIO MARLENE) Test blood glucose withone new test strip 4 times daily ?? Unchanged torsemide (torsemide 20 mg oral tablet) 1 tab Oral (given by mouth) 3 times a day as needed for IF NEEDED Edema, peripheral as needed Unchanged triamcinolone topical (triamcinolone 0.1% topical cream) 1 Application Topical (on the skin) 2 times a day Stasis dermatitis of both legs Bilateral lower extremity edema Duration: 10 Days Pharmacy Information [id number]: [address] [place] [address] [phone] ?? What How Much When Why Comments Stop Taking cephalexin (cephalexin 500 mg oral capsule) TAKE 1 CAPSULE BY MOUTH 4 TIMES DAILY ?? Stop Taking fenofibrate (fenofibrate 30 mg oral capsule) 1 Capsules Oral (given by mouth) Every day Hypertriglyceridemia Stop Taking fenofibrate (fenofibrate 40 mg oral tablet) 1 tab Oral (given by mouth) Every day Hyperlipidemia Your Summary Your Care Team Admitting Physician - Oralia Downing NP Attending Physician - Hortensia Nieto MD Primary Care Physician - Jamila Archer MD Your Diagnosis Acute hypoxemic respiratory failure Pneumonia Type 1 diabetes HTN (hypertension) HLD (hyperlipidemia) Morbid obesity HOLLIE treated with BiPAP Thyroid nodule Mediastinal adenopathy Pulmonary hypertension Hypothyroidism Yeast infection Discharge Vitals Temperature??(Temporal Artery) 97.5 ??F (36.4 ??C) Heart Rate??(Peripheral) 93 Respiratory Rate?? 20 Blood Pressure?? 130/87?? Allergies rOPINIRole morphine Patient Name:DHARA MIRMAONTES I have received this information and my questions have been answered. Patient/Media/Instructional Designer Name: Patient/Media/Instructional Designer Signature: Relationship to Patient: Witness Name/Signature: Date: Electronically Signed on: 01/02/2023 15:52 EDTSigned by:ELOISE Occupational therapy Progress note * Tamra Juarez: PERFORM, MODIFY Event Display: Occupational Therapy Progress Note Authored Date: [id number] Patient ID and date of checked: Confirmed *Current Level of Care: In-Patient *Admitting Diagnosis: Acute hypoxic respiratory failure *Therapy Diagnosis: Increased need for assistance with personal care. Pertinent Medical History: Patient is a 27-year-old female who presented to the ED with complaints of SOB and was found to be on 83% O2 on room air. Patient was admitted to this facility on 12/31/2022for medical TX of pneumonia causing acute hypoxic respiratory failure. medical history includes butnot limited to Obesity, HTN, HLD, autoimmune thyroiditis, DM type 1, hypoventilation syndrome. *Subjective: Patient seated in bedside chair with RN present upon OT arrival. Patient very easily agreeable to participating in OT initial evaluation this date. Patient states I am a mouth breather and I know that doesn't help. Patient left in chair with chair alarm on and all needs within reach at therapist departure. Hand Dominance: Ambidextrous *Barriers to Learning: ??x None Communication Cultural Education level Hearing Language Vision Physical Cognitive Motivational Emotional Acute medical condition Precautions: ??x Standard precautions MRSA/VRE Contact precautions Droplet precautions Airborne precautions Covid precautions Total hip replacement Total knee replacement Total shoulder replacement Fall risk *Previous Level of Function: Patient lives at home with her grandmother and reports prior independence with all ADLs and IADLs including driving. Patient does not use AD for functional mobility at baseline and does not typically require supplemental O2. 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 Prior Home Setup: ?Living Situation/Level of Supervision: At home/ independent ?Living Environment: Home, with grandmother ?Stairs/Ramps: 4 steps to enter, full set of stair to bedroom with handrails. ?Home Equipment: Shower bench but does not use. *Current Level of Function: Pain: Mild discomfort in L lower abdomen Vision/Hearing: Corrective lenses reporting very low acuity, hearing wnl Cognition: All measures of cognition are within functional limits including good safety awareness. Upper Extremity Passive/Active Range of Motion: B UE AROM wfl Manual Muscle Testing: B UE strength grossly 5/5 Proprioception/Sensation: Patient denies acute sensory changes Edema: none Coordination: ?Fine Motor: intact ?Gross Motor: intact Tone: n/a ADLs: Activity Assistance Comments Bathing Upper Body Bathing Lower Body Dressing Upper Body ??Independent ??To don hospital down while standing, patient deferring to sit for upper body dressing despite education on energy conservation techniques. Dressing Lower Body Eating Shaving Combing Hair Brushing Teeth Toileting ??Patient denies need. IADLs: Activity Assistance Comments Light Meal Prep Phone Call ??Independent Light Housekeeping Tasks Money Management Medication Management ??Independent ??To check blood sugar levels on handheld device Bed Mobility: Not assessed this date, patient seated comfortably in chair Activity Assistance Comments Rolling Scooting/Repositioning Supine to Sit Sit to Supine Transfers: Activity Assistive Device Assistance Comments Sit to Stand ??None used ??SBA ??Patient visibly out of breath with SpO2 at 92% on 2 l O2 via nc. VCs for pursed lip breathing. Stand to Sit ??Independent ??Controlled descent Bed to Chair Chair to Bed Shower Transfer Toilet Transfer ??Patient denies need Functional Ambulation During ADLs: Assistance Assistive Device Distance??(ft) Comments ??Min (A) ??None used ??~ 30 ft ??SpO2 at 93% upon standing and 96% upon returning to chair after functional mobility. Verbal cueing for breathing techniques during functional performance. Patient requiring frequent cues to breath through nose. Balance: ?Static Sitting: good ?Dynamic Sitting: good ?Static Standing: good ?Dynamic Standing: good Posture: normal Orthosis: n/a Skilled Treatment/Training in Safe Performance of/Correct Techniques with: ?Energy Conservation Activities: Skilled instruction on pursed lip breathing, recovery breaths, and energy conservation techniques during functional performance with printed information provided including visuals. Patient performing functional mobility with verbal cues to incorporate energy conse rvation techniques. *Standardized Testing: Standardized Test Score Comments AM-PAC Yaneli Index Deng Balance Score PASS SLUMS Short Blessed Test Challis Cognitive Assessment Modified Yaneli Index ??89/100 Score indicates a moderate dependence with ADLs. Motor Assessment Scale Quick DASH *Patient Education: Patient introduced to this therapist and provided brief scope of OT services inacute care.??Skilled instruction on pursed lip breathing, recovery breaths, and energy conservationtechniques during functional performance with printed information provided including visuals. *Occupational Therapy Assessment: ?? Patient is a 27-year-old female who presented to the ED with complaints of SOB and was found to be on 83% O2 on room air. Patient was admitted to this facility on12/31/2022 for medical TX of pneumonia causing acute hypoxic respiratory failure. Patient lives at home with her grandmother. She reports prior independence with all ADLs and IADLs but has been requiring increased assistance with personal care due to fatigue and SOB upon exertion. Patient demonstrates independence with upper body dressing. She reportedly has difficulty with lower body dressing butdeferred LB dressing this date. Patient would benefit from skilled acute OT services aimed to trainpatient on energy conservation techniques as well as reinforce pursed lip breathing during functional performance. *Rehab Potential: Good?to reach the established goals *Short Term Goals?time frame: Deferred to LTG *Jail Goals?time frame: 2 days 1. Patient will independently demonstrate 2 energy conservation techniques during full body dressing routine. 2. Patient will demonstrate pursed lip breathing during periods of SOB with correct technique. 3. Patient will verbalize 2 energy conservation techniques to utilize at home. *Patient Goals: To go home OT Plan of Care: *Treatment Duration: 2 days *Treatment Frequency: 2x *Treatment Intensity: 30 minutes *Planned Treatment Interventions: Home assessment and modification education Manual therapy Neuromuscular re-education Pain management education ??x Patient/family education Self-care/ Home management Orthoses/prosthesis fabrication and training ??x Therapeutic activities Therapeutic exercises Cognitive skills training Wheelchair management training *Discharge Plan: maximal benefit of therapy Discharge Recommendations: ?Home equipment needs: None ?Post discharge Rehab needs:?none for OT _ ?Supervision needs:?None _ ?Discussed plan of care with: Patient *Procedure Documentation: CPT 34222: Low Complexity OT Evaluation:??30 minutes Occupational Therapy Low Complexity Evaluation performed. History involves brief review. Examination of performance deficit(s) includes 1-3 elements. Clinical decision making includes limited?? treatment option considerations. possibly present?comorbidities. Task modifications/assistance are minimal to moderate. *Total Time: 35 minutes *Time In: 10:35 *Time Out: 11:10 Electronically Signed on 01/01/23 02:38 PM Tamra Juarez general sales manager Note * Sweetie Zaragoza: PERFORM Event Display: Case Management Note Authored Date: [id number] Review Summary Settings Print InterQual?? Review Summary Created By: Sweetie Zaragoza Created Date: 12/30/2022, 11:32 PM EDT Review Status: In Primary Completed Date: Facility: [facility] Criteria Status: Acute Met Criteria Product: LOC:Acute Adult Criteria Subset: Infection: Pneumonia Criteria Version: InterQual?? 2022, 2022 Release Utilization Benchmarks Length of Stay: None selected Select Day, One: Initial review, One: OBSERVATION, Both: ACUTE, Both: Pneumonia confirmed by imaging Finding, ? ? One: O2 sat < 89%(0.89) and < baseline EKG study * Event Display: Telemetry Strips Please click on link to view image. * Event Display: Telemetry Strips Please click on link to view image. * Event Display: Telemetry Strips Please click on link to view image. Pharmacology Progress note * Andria Srivastava PharmD: PERFORM Event Display: Pharmacy Progress Note Authored Date: [id number] Pharmacy Progress Note Med Rec updated with Xi Quezada Electronically Signed on 01/01/23 03:43 PM Andria Srivastava PharmD Respiratory therapy Hospital Progress note * Rosy Ball: PERFORM Event Display: Respiratory Therapy Progress Note Authored Date: [id number] ??DHARA MIRAMONTES 27 Years MEASURED Body Mass Index: 67.56 kg/m2 (12/31/22 03:07:00) BSA Measured: 2.29 m2 (11/03/22 09:13:00) Height: 149 cm (12/31/22 03:07:00) Weight: 147 kg (12/31/22 06:05:00) DOSING Height/Length Dosin cm (12/31/22 03:07:00) Weight Dosin kg (12/31/22 03:07:00) Respiratory Shift Summary Breath Sounds: Diminished Shift Treatments: None Respiratory Protocol??Aerosol Therapy Assessment and Scoring Home Medication Routine: Lung History (0) No Lung History and Non-Smoker Breath Sounds (1) Clear to slightly diminished or crackles in bases Respiratory Rate (0) Less than or equal to 18 Modified Kathleen Scale or Observed Dyspnea (0) None Oxygen Therapy (0) Room air, at baseline home O2, post-op, or CHF Home Respiratory Medications (0) None Inhaler Use Assessment ? Clinically Stable? Yes? Can take a slow deep breath on command? Yes? Can perform a 3 second breath hold? Yes Respiratory total Score: 1 Respiratory Guidelines 0-2 pts - No Therapy indicated Electronically Signed on 01/02/23 07:16 AM Rosy Ball * Oneal Pérez: PERFORM Event Display: Respiratory Therapy Progress Note Authored Date: [id number] ??DHARA MIRAMONTES 27 Years MEASURED Body Mass Index: 67.56 kg/m2 (12/31/22 03:07:00) BSA Measured: 2.29 m2 (11/03/22 09:13:00) Height: 149 cm (12/31/22 03:07:00) Weight: 147 kg (12/31/22 06:05:00) DOSING Height/Length Dosin cm (12/31/22 03:07:00) Weight Dosin kg (12/31/22 03:07:00) Respiratory Shift Summary Breath Sounds: Diminished Shift Treatments: Q4 Pulmicort; 2L Oxygen; Home BiPAP with 5L O2 bled in Shift Events: Nocturnal Home BiPAP use Respiratory Protocol??Aerosol Therapy Assessment and Scoring Lung History (0) No Lung History and Non-Smoker Breath Sounds (1) Clear to slightly diminished or crackles in bases Respiratory Rate (1)??19-25 Modified Kathleen Scale or Observed Dyspnea (0) None Oxygen Therapy (1) 1-2 L/min Home Respiratory Medications (0) None Inhaler Use Assessment ? Clinically Stable? Yes? Can take a slow deep breath on command? Yes? Can perform a 3 second breath hold? Yes Respiratory total Score: 3 Respiratory Guidelines 3-4 pts - Q6 PRN for SOB Electronically Signed on 12/31/22 11:46 PM Oneal Pérez * Chelo Bansal: MODIFY, MODIFY, MODIFY, PERFORM, MODIFY Event Display: Respiratory Therapy Progress Note Authored Date: ??DHARA MIRAMONTES 27 Years MEASURED Body Mass Index: 57.21 kg/m2 (11/03/22 09:13:00) BSA Measured: 2.29 m2 (11/03/22 09:13:00) Height: 149 cm (11/03/22 09:13:00) Weight: 150 kg (12/30/22 21:32:00) DOSING Height/Length Dosin cm (12/30/22 19:05:52) Weight Dosin kg (12/30/22 19:05:52) Respiratory Shift Summary Breath Sounds: Diminished Shift Treatments: Duoneb x1 0224- Pulmicort Shift Events: Pt a/o sitting on edge of stretcher. Pt is currently on 4 L/min via oxy mask. Pt is visibly SOB/tachypneic and labored. ABG drawn, pt tolerated well. Duoneb administered w/o significant improvement in aeration. Pt states she does not have any resp hx or resp meds. However she does have a HU BiPAP that she hasused for years. 0130- Pt sitting in recliner @ this time. Pt remains on 4 L/min via oxy mask, SpO2 92-98%. Pt is SOB on exertion but is able to recover and sats improve. BS remain diminished w/ good aeration. 0224- Pt admitted to floor, HU BiPAP setup, settings are 22/16 w/ 5 L/min bleed in. Pt does not normally use O2 @ home. Will titrate O2 to maintain SpO2 92% and higher. Pulmicort administered per CLEANING AND MAINTENANCE WORKER order. IS @ bedside. Will continue to monitor. 0509- Pt resting comfortably on HU BiPAP @ this time. SpO2 is 93%. Will continue to monitor. Respiratory Goals/Plan of Care: Continue current POC. ABG???s: 7.39/44/93/27 SO2 98 Inital Bipap??Settings: HU BIPAP 22/16 w/ 5 L bleed in Respiratory Protocol??Aerosol Therapy Assessment and Scoring Home Medication Routine: Lung History (0) No Lung History and Non-Smoker Breath Sounds (2) Intermittent wheezes or moderately diminished or crackles greater than 1/3 up back Respiratory Rate (1)??19-25 Modified Kathleen Scale or Observed Dyspnea (1) 1-2 With exertion Oxygen Therapy (2) 3-6 L/m or equivalent Home Respiratory Medications (0) None Inhaler Use Assessment ? Clinically Stable? Yes? Can take a slow deep breath on command? Yes? Can perform a 3 second breath hold? Yes Respiratory total Score: 6 Respiratory Guidelines 5-9 pts - QID scheduled??and Q4 PRN for SOB Electronically Signed on 12/31/22 05:13 AM Chelo Bansal Physical therapy Note * Cata Bland: MODIFY, PERFORM Event Display: Physical Therapy Rehab Note Authored Date: [id number] * Final Report * Patient ID and date of checked:??Yes, verbally *Current Level of Care: In-Patient *Admitting Diagnosis: Acute Hypoxic Respiratory Failure secondary to Pneumonia *Therapy Diagnosis: Decreased functional mobility; decreased functional endurance Pertinent Medical History: Dhara is a 27 year old female who was admitted to the hospital due to shortness of breath, pt was at 83% on room air upon arrival to [facility] and it was found she had Pneumonia causing her Acute Hypoxic Respiratory Failure. She also presents with a hx of falling a month and a half ago and her LE have been less stable since. Transfers: Activity Assistive Device Assistance Comments Sit to Stand ??INd Stand to Sit ??Ind Bed to Chair ??Ind Chair to Bed ??Ind Shower Transfer Toilet Transfer Ambulation: Assistance Assistive Device Distance Comments ??SBA ??none ??200 ft ??good self pacing, On 2L her sats remained 91%, vc's to inhale through nose Stairs: n/a Assistance Assistive Device # Steps Comments Wheelchair Mobility: n/a Assistance Distance Comments Balance: ?Static Sitting: ?Dynamic Sitting: ?Static Standing: ?Dynamic Standing: good *Procedure Documentation: CPT 49384: Gait Training:?27 ?? minutes Gait and/or stair training to promote improved sequencing, safety and movement quality for functional mobility. Treatment techniques utilized today included: ambulation on 2L without AD and SBA *Patient Education: inhaling through nose vs mouth *Physical Therapy Assessment: ??Dhara is pacing herself well with mobility outside her room. Her balance is good. She continues to be SOB with activity with sats remaining above 90% on 2L. Goal Updates: making gains *PT Plan of Care: continue *Total Time: 27min *Time In: 9:40am *Time Out: 10:07am Physician Emergency department Note * Nikki Wilson MD: PERFORM Event Display: ED Note Physician Authored Date: [id number] DHARA MIRAMONTES :1995 Age:27 years Sex:Female Visit Date:12/30/2022 Primary Care Physician: Jamila Archer MD Basic Information Time Seen: Nikki Wilson MD / 12/30/2022 19:11 Chief Complaint Patient c/o difficulty breathing for two days, non-productive cough. ??Seasonal allergies. ??SPeaking in full sentences History Of Present Illness: sob worse since last night.?? pt fell 1 month ago and has had fluid problems of her legs.?? She is trying??to wear compression stockings.?? No fever??no illness of her pain??no chest pain no cough patient does have seasonal allergies no nausea no vomiting no diarrhea??no new extremity edema??no skin rashes no history of DVTs she is not on blood thinners. Review of Systems: see hpi for ros Physical Exam Vitals & Measurements T:??36.5?C ??(Temporal Artery)?? HR:??107??(Peripheral)?? RR:??26?? BP:??118/77?? SpO2:??93%?? HT:??150.000??cm?? WT:??150??kg?? O2 Flow Rate:??3?? O2 Therapy:??[place]?? General: Alert and oriented, well nourished,?No??acute distress Eye: PER?Normal??conjunctiva,??No??scleral icterus HENT: Normocephalic,??nontraumatic??Normal hearing Lungs: Clear to auscultation,?Non-labored?? respiration Heart:?Normal?? rate,?Regular??rhythm,?No??murmur,?No??gallop,?No??edema Chest: wall excursion wnl no abnormal movements no obvious deformities Musculoskeletal:?Normal?? range of motion and strength,?No??tenderness,?No acute??swelling Skin: Skin is warm, dry and pink,?No??rashes,?No??lesions Neurologic: Awake, alert and oriented X4 Psychiatric: Cooperative, appropriate mood and affect Medical Decision Making: For MDM please see under assessment and plan Procedure No Qualifying Data Assessment/Plan 1.??Pneumonia??J18.9 We will start patient on azithromycin 500 mg IV and??Rocephin??1 g IV. ??Patient was hypoxic to 85%on arrival??and appeared to be??tachypneic??patient required 4 L??to help maintain her O2 sats??patient received 80 mg IV Lasix??and??125 mg of IV Solu-Medrol to see if this would help??improve her??breathing??as well as a nebulizer treatment. 2.??Hypoxia??R09.02 Improved with oxygen patient is not??on oxygen at home??she will need supportive care??to help improve??her oxygenation??and breathing. 3.??Diabetes??E11.9 Patient is diabetic we did give her 100 units??of Humulin??to help with her sugars with her having had steroids to help with her breathing.?? We will need to continue to monitor??and help support??blood sugars. Orders: Blood Culture, Blood, Stat collect, ST - Stat, 12/30/22 22:21:00 EDT, Once, Nurse collect, Print Label Blood Culture, Blood, Stat collect, ST - Stat, 12/30/22 22:21:00 EDT, Once, Nurse collect, Print Label Decision to Admit, 12/31/22 1:34:00 EDT, Medical Unit Medication Reconciliation Unchanged ascorbic acid (Vitamin C 500 mg oral tablet)1 tab Oral (given by mouth) every day. Refills: 0. ?? atorvastatin (atorvastatin 40 mg oral tablet)1 tab Oral (given by mouth) every day. ?? cephalexin (cephalexin 500 mg oral capsule)TAKE 1 CAPSULE BY MOUTH 4 TIMES DAILY. ?? cetirizine-pseudoephedrine (ZyrTEC-D 5 mg-120 mg oral tablet, extended release)1 tab Oral (given bymouth) every 24 hours. Refills: 0. ?? dulaglutide (Trulicity Pen 1.5 [...] 0. ?? Durable Medical Equipment for Prescription (FUTURO COMPRESSION SOCKS)rt leg: length 45cm, calf 52cm, ankle 30cm lt leg: length 45cm, calf 53cm, ankle 30cm. Refills: 0. ?? Durable Medical Equipment for Prescription (FUTURO COMPRESSION SOCKS)FUTURO COMPRESSION SOCKS. Refills: 0. ?? ergocalciferol (ergocalciferol 1.25 mg (50,000 intl units) oral capsule)1 Capsules Oral (given by mouth) every week. ?? fenofibrate (fenofibrate 30 mg oral capsule)1 Capsules Oral (given by mouth) every day. Refills: 3. ?? fenofibrate (fenofibrate 40 mg oral tablet)1 tab Oral (given by mouth) every day. Refills: 0. ?? fluconazole (Diflucan 150 mg oral tablet)1 tab Oral (given by mouth) once. Can repeat in 3 days if symptoms persist. Refills: 0. ?? glucagon (Glucagon Emergency Kit for Low Blood Sugar)follow instructions per kit; as needed low blood sugar. ?? insulin regular (HumuLIN R KwikPen (Concentrated) 500 units/mL subcutaneous solution)200 Units Intradermal (in the skin) before meals. correction facter of 50 units. ?? levothyroxine (levothyroxine 100 mcg (0.1 mg) oral tablet)1 tab Oral (given by mouth) every day. Take one tablet by mouth with water a half hour before eating or taking any other medication. Take with 125 mcg dose.. Refills: 3. ?? levothyroxine (levothyroxine 125 mcg (0.125 mg) oral tablet)1 tab Oral (given by mouth) every day. Take one tablet by mouth with water a half hour before eating or taking any other medication. Take with 100 mcg dose.. Refills: 3. ?? lisinopril (lisinopril 10 mg oral tablet)1 tab Oral (given by mouth) every day. for 90 days- dose change 10/20/2021. Refills: 3. ?? multivitamin (multivitamin adult, oral tablet)1 tab Oral (given by mouth) every day. Refills: 0. ?? Other Prescription (W4 VERIO FLEX KIT)1 each [place] [facility] [place] (non drug: combo route) route 4 times daily.. ?? Other Prescription (Egr RenovationTOUCH VERIO MARLENE)Test blood glucose withone new test strip 4 times daily. ?? torsemide (torsemide 20 mg oral tablet)1 tab Oral (given by mouth) 3 times a day as needed IF NEEDED. Refills: 1. ?? triamcinolone topical (triamcinolone 0.1% topical cream)1 Application Topical (on the skin) 2 timesa day for 10 Days. Refills: 0. Problem List/Past Medical History Ongoing Adult health examination Autoimmune thyroiditis Bilateral lower extremity edema Developmental disorder Diabetic ketoacidosis Erythroderma Hyperlipidemia Hypertensive disorder Idiopathic sleep related non-obstructive alveolar hypoventilation Intermenstrual bleeding - irregular Irregular sleep-wake pattern Kidney disease Localized edema Obesity Obstructive sleep apnea syndrome HOLLIE treated with BiPAP Severe obesity Tachycardia Tension-type headache Type 1 diabetes Historical No qualifying data Procedure/Surgical History ???Due 10/2025 (10/31/2022)???ORIF - Open reduction and internal fixation of fracture (12/22/2020)???Adenoidectomy (09/10/2013)???Tonsillectomy (09/10/2003) Medication Administration Given !-DuoNeb 0.5 mg-2.5 mg/3 mL inhalation solution, 3 mL, Inhale !-Rocephin, IV Piggyback azithromycin, IV Piggyback HumuLIN R, 100 units, Subcutaneous ibuprofen, 600 mg, Oral Lasix, 80 mg, IV Push SOLU-Medrol, 125 mg, IV Push Allergies rOPINIRole morphine Social History Alcohol Current, [...] Sleep apnea: Mother, Father and Grandfather (P). Electronically Signed on 12/31/22 02:40 AM Nikki Wilson MD Physical therapy Progress note * Cata Bland: PERFORM Event Display: Physical Therapy Progress Note Authored Date: [id number] Patient ID and date of checked:??Yes, verbally *Current Level of Care: In-Patient *Admitting Diagnosis: Acute Hypoxic Respiratory Failure secondary to Pneumonia *Therapy Diagnosis: Decreased functional mobility; decreased functional endurance Pertinent Medical History: Dhara is a 27 year old female who was admitted to the hospital due to shortness of breath, pt was at 83% on room air upon arrival to [facility] and it was found she had Pneumonia causing her Acute Hypoxic Respiratory Failure. She also presents with a hx of falling a month and a half ago and her LE have been less stable since. SUBJECTIVE: I know my oxygen is better, but I'm still super short of breath and nobody seems concerned with that. Transfers: Activity Assistive Device Assistance Comments Sit to Stand ??INd Stand to Sit ??Ind Bed to Chair ??Ind Chair to Bed ??Ind Shower Transfer Toilet Transfer Ambulation: Assistance Assistive Device Distance Comments ??SBA ??none ??250ft x 2 ??self pacing, on RA her O2 varied 88-92%, vc's to breath in through nose Stairs: Assistance Assistive Device # Steps Comments ??SBA ??1 rail ??8 ??non-reciprocal Wheelchair Mobility: n/a Assistance Distance Comments Balance: ?Static Sitting: ?Dynamic Sitting: ?Static Standing: ?Dynamic Standing: good *Procedure Documentation: CPT 69907: Gait Training:??25? minutes Gait and/or stair training to promote improved sequencing, safety and movement quality for functional mobility. Treatment techniques utilized today included: ambulation on 2L without AD and SBA *Patient Education: inhaling through nose vs mouth *Physical Therapy Assessment: ??Dhara is pacing herself well with mobility outside her room. Her balance is good. She continues to be SOB with activity with sats 88-92%. Reported this to her nurse. Goal Updates: making gains *PT Plan of Care: continue *Total Time: 5min *Time In: 9:00am *Time Out: 9:25am Electronically Signed on 01/02/23 09:38 AM Cata Bland * Jorge Seth PT, DPT: PERFORM Event Display: Physical Therapy Progress Note Authored Date: [id number] Patient ID and date of checked:??Yes, verbally *Current Level of Care: In-Patient *Admitting Diagnosis: Acute Hypoxic Respiratory Failure secondary to Pneumonia *Therapy Diagnosis: Decreased functional mobility; decreased functional endurance Pertinent Medical History: Dhara is a 27 year old female who was admitted to the hospital due to shortness of breath, pt was at 83% on room air upon arrival to [facility] and it was found she had Pneumonia causing her Acute Hypoxic Respiratory Failure. She also presents with a hx of falling a month and a half ago and her LE have been less stable since. Active Problems: Adult health examination Autoimmune thyroiditis Bilateral lower extremity edema Developmental disorder Diabetic ketoacidosis Erythroderma HLD (hyperlipidemia) HTN (hypertension) Hyperlipidemia Hypertensive disorder Idiopathic sleep related non-obstructive alveolar hypoventilation Intermenstrual bleeding - irregular Irregular sleep-wake pattern Kidney disease Localized edema Mediastinal adenopathy Morbid obesity Obesity Obstructive sleep apnea syndrome HOLLIE treated with BiPAP Severe obesity Tachycardia Tension-type headache Thyroid nodule Type 1 diabetes *Subjective: Dhara reports she if feeling a little better today than she did yesterday. She notes that any exertion causes moderate SOB. She states at her baseline she ambulates without issue and ascends and descends the 12 steps to her room with no issues. Pt positioning and alarm status at end of tx: After thorough evaluation of functional mobility it is determined pt is safe to be Independent in the room during waking hours. Pt is left with all needsmet and call light within reach. Pt should have SBA and skilled monitoring of her 02 sat with hallway ambulation; ambulation orders are for 3x daily. Hand Dominance: Ambidextrous *Barriers to Learning: None Communication Cultural Education level Hearing Language Vision ??x Physical Cognitive Motivational Emotional Precautions: ??x Standard precautions MRSA/VRE Contact precautions Droplet precautions Airborne precautions Covid precautions Total hip replacement Total knee replacement Total shoulder replacement Fall risk Pt is on 3L 02 throughout evaluation *Previous Level of Function: Pt lives at her grandparents house and is Independent with all ADLs/ IADLs. 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 Living Situation/Level of Supervision: Pt lives independently with her grandparents ?Living Environment: House ?Stairs/Ramps: 4 steps to enter; 12 steps up to her room both have a hand rail ?Home Equipment: none *Current Level of Function: Decreased endurance and stability with gait and transfers Pain: ?None stated; pt c/o SOB with ambulation Vision/Hearing: WFL Cognition: ??All Cognition is WNL ?Orientation: Ox4 ?Safety Awareness: good Passive/Active Range of Motion: WFL; hip and knee ROM limited by body habitus mildly Manual Muscle Testing: Globally 4/5 in LE Bed Mobility: Activity Assistance Comments Rolling Scooting/Repositioning Supine to Sit Sit to Supine Transfers: Activity Assistive Device Assistance Comments Sit to Stand ??No AD ??I Stand to Sit ??No AD ??I Bed to Chair Chair to Bed ??No AD I Shower Transfer Toilet Transfer ?Education on line management and safety for pt to be able to I in her room Ambulation: Assistance Assistive Device Distance Comments ??SBA ??No AD ??20' x5 in room; 130'x1 80'x1 ??Short bouts of ambulation are to facilitate safety with line management; longer bouts of ambulation are to challenge pt's endurance and educate her on paced breathing with ambulation; she has a shuffling gait pattern with bilateral modified trendelenburg ??Education on line management and safety for pt to be able to I in her room With longer ambulation pt de sats to 88% but returns to >92% within 2 minutes with deep breathing Stairs: Assistance Assistive Device # Steps Comments Wheelchair Mobility: Assistance Distance Comments Balance: ?? Static Sitting: Good ?Dynamic Sitting: Good ?Static Standing: Good ?Dynamic Standing: Good- Posture: Fair with mild-mod rounded shoulders and forward head *Standardized Testing: Standardized Test: [facility] Functional Impairment Rating ? Score: 3 ? Comments: 15% functional mobility impairment *Patient Education: ??Education on line management and safety for pt to be able to I in her room; deep breathing strategies; value of regular ambulation for improved pulmonary health. *Physical Therapy Assessment: Dhara is a 27 year old female who was admitted to the hospital due to shortness of breath, pt was at 83% on room air upon arrival to [facility] and it was found she had Pneumonia causing her Acute Hypoxic Respiratory Failure. She also presents with a hx of falling a month and a half ago and her LE have been less stable since. She has decreased endurance and stability with ambulation at this time even with 3L supplemental 02 throughout evaluation. Her 02 saturation decreases to 88% with ambulation. She will benefit from skilled physical therapy during her stay to make sure she can safely ascend and descend 12 stairs as well as to further promote improved breathing strategies. Pt is on ambulation orders with nursing 3x daily to promote improved endurance and decrease chance of deconditioning. Upon DC pt would benefit from following up with Physical Therapy in an outpatient setting to promote improved pulmonary function, general stability and further address pt's health/ wellness. *Rehab Potential: Good?to reach the established goals *Short Term Goals?time frame: ??Defer to LTGs *Jail Goals?time frame: 1 day Ascend and descend 12 stairs with [place]. Ambulate in her room and to the bathroom Independently with no issues or LOB. *Patient Goals: To be able to go home; to be able to breath better PT Plan of Care (as per below) *Treatment Duration: until goals are met *Treatment Frequency: M-Fr *Treatment Intensity: 30 Min *Planned Treatment Interventions: ??x CPT 15984: Therapeutic Exercise ??x CPT 35458: Therapeutic Activity ??x CPT 77968: Gait Training ??x CPT 80453: Neuromuscular Re-education ??x CPT 87330: Self-Care/Home Management CPT 52676: Manual Therapy CPT 15602: Ultrasound CPT G0283: Electrical Stimulation CPT 84233: Initial Orthotic Fit/Train CPT 35314: Initial Prosthetic Train CPT 09782:??Subsequent??Orthotic??Check CPT 76188:??Wheelchair??Management??Training *Discharge Plan:?Upon meeting therapy goals, max therapy benefit, or discharge from facility. Discharge Recommendations: ?? Home equipment needs: ?Post discharge Rehab needs: outpatient ?? Disposition: home ?Supervision needs: limited supervision ?Discussed plan of care with: Pt, RN *Evaluation Procedure Documentation: *Total Time: 20 min *Time In: 1129 *Time Out: 1149 Electronically Signed on 12/31/22 01:14 PM Jorge Seth PT, DPT Nutrition and dietetics Progress note * Clemencia Pitts RD: PERFORM Event Display: Nutrition Note Authored Date: [id number] Nutrition Recommendations Patient here with pneumonia, wearing nasal canula when this RD visited today, was able to converse with minimal shortness of breath. She tells me that she has been trying to lose weight and that she plans on starting [employer] meal plan for weight loss soon. She is interested in working with outpatient dietitian for nutrition education and counseling. She is under the impression that she is on??a 1200 calorie meal plan, She is in fact on a 2000 calorie /day diet while inpatient. This is likely adequate (recommend 2000-2250kcal/day for weight loss goal 2 pounds per week) though I would recommendproviding low calorie, high protein snacks to help meet protein needs which are high. Dhara does tell me that in the evening her blood sugars tend to drop as low as the 60s when following her home diabetic management plan. It would likely benefit her to receive a low carbohydrate, high protein HS snack. Nutrition Risk Level moderate-high Assessment and Monitoring weekly and as needed Nutrition Diagnosis obesity altered nutrition related lab values: A1c 9.2, triglycerides 742, cholesterol 502, Nutrition Goals weight loss improved glucose/diabetes management Nutrition Interventions recommend continue with diabetic 2000-2250kcal/day diet recommend high protein, low-mod carb??HS snack May benefit from JONATHAN diet due to bilateral lower extremity edema, concern for fluid retention Recommend outpatient nutrition referral Nutrition Education brief discussion of calorie needs Anthropometrics/Estimated Needs [id number] kg(Recorded: 12/31/2022 06:05 EDT) Wyndoj759.000 cm(Recorded: 12/31/2022 03:07 EDT) Body Mass Index67.560 kg/m2(Recorded: 12/31/2022 03:07 EDT) Estimated Energy Needs Low kcal/lll5195 kcal/day(Recorded: 01/01/2023 10:28 EDT) Estimated Energy Needs High kcal/fij6131 kcal/day(Recorded: 01/01/2023 10:28 EDT) Estimated Protein Needs Low g/fuu018 g/day(Recorded: 01/01/2023 10:28 EDT) Estimated Protein Needs High g/kwt164 g/day(Recorded: 01/01/2023 10:28 EDT) Reason for Visit shortness of breath Problem List/Past Medical History Ongoing Adult health examination Autoimmune thyroiditis Bilateral lower extremity edema Developmental disorder Diabetic ketoacidosis Erythroderma HLD (hyperlipidemia) HTN (hypertension) Hyperlipidemia Hypertensive disorder Idiopathic sleep related non-obstructive alveolar hypoventilation Intermenstrual bleeding - irregular Irregular sleep-wake pattern Kidney disease Localized edema Mediastinal adenopathy Morbid obesity Obesity Obstructive sleep apnea syndrome HOLLIE treated with BiPAP Severe obesity Tachycardia Tension-type headache Thyroid nodule Type 1 diabetes Historical No qualifying data Procedure/Surgical History ???Due 10/2025 (10/31/2022)???ORIF - Open reduction and internal fixation of fracture (12/22/2020)???Adenoidectomy (09/10/2013)???Tonsillectomy (09/10/2003) Social History Alcohol Current, 1-2 times per month Electronic Cigarette/Vaping Electronic Cigarette Use: Never. 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 Home/Environment Lives with grandparents. Living situation: Home/Independent. Nutrition/Health Caffeine intake amount: about 150 mg/day. Substance Use Never Tobacco Never tobacco user Tobacco Use:. Family History Diabetes mellitus: Other. Insomnia: Mother. Restless legs syndrome: Grandfather (M). Sleep apnea: Mother, Father and Grandfather (P). Diet Orders Diet Order, 12/31/22 1:44:00 EDT, Diabetic, 2000 kcal, Calorie Restriction 2000 calories Allergies rOPINIRole morphine Nutrition Lab Results Test Name Test Result Date/Time WBC 13.0 x10^3/mcL 01/01/2023 07:07 EDT Hgb 11.5 g/dL 01/01/2023 07:07 EDT Hct 36.7 % 01/01/2023 07:07 EDT MCV 93.9 01/01/2023 07:07 EDT Platelets 315 x10^3/mcL 01/01/2023 07:07 EDT Sodium Level 135 mmol/L 01/01/2023 07:07 EDT Potassium Level 4.3 mmol/L 01/01/2023 07:07 EDT Chloride Level 95 mmol/L 01/01/2023 07:07 EDT CO2 28 mmol/L 01/01/2023 07:07 EDT BUN 43 mg/dL 01/01/2023 07:07 EDT Glucose Level 214 mg/dL 01/01/2023 07:07 EDT Creatinine Level 1.02 mg/dL 01/01/2023 07:07 EDT Magnesium Level 2.4 mg/dL 01/01/2023 07:07 EDT Medications Inpatient !-Robitussin, 200 mg= 10 mL, Oral, every 4 hr, PRN acetaminophen, 650 mg= 2 tab, Oral, every 6 hr, PRN atorvastatin, 40 mg= 1 tab, Oral, Daily azithromycin + Sodium Chloride 0.9% 125 mL budesonide 0.5 mg/2 mL inhalation suspension, 0.5 mg= 2 mL, NEB, every 4 hr RT cefTRIAXone, 2 g= 50 mL, IV Piggyback, every 24 hr Dextrose 50% intravenous solution, 12.5 g= 25 mL, IV Push, Once, PRN enoxaparin, 40 mg= 0.4 mL, Subcutaneous, every 24 hr glucagon, 1 mg= 3 mL, IM, As Directed, PRN glucose 40% oral gel, 15 g= 30 mL, Oral, As Directed, PRN glucose 40% oral gel, 30 g= 60 mL, Oral, As Directed, PRN HumuLIN R KwikPen (Concentrated) 500 units/mL subcutaneous solution, 200 unit(s)/0.4 ml, Subcutaneous, BID(AC) HumuLIN R KwikPen (Concentrated) 500 units/mL subcutaneous solution, 100 unit(s)/0.2 ml, Subcutaneous, Daily insulin lispro (HumaLog) correction- resistant, Resistant Scale, Subcutaneous, QID(ACHS) levothyroxine, 125 mcg, Oral, Daily levothyroxine, 100 mcg, Oral, Daily lidocaine 1% injectable solution, 5 mg= 0.5 mL, Intradermal, As Directed, PRN lisinopril, 10 mg= 2 tab, Oral, Daily Milk of Magnesia, 30 mL, Oral, TID, PRN morphine, 2 mg= 1 mL, IV Push, every 2 hr, PRN Normal Saline Flush, 10 mL, IV Push, every 12 hr (rojas) ondansetron, 4 mg= 2 mL, IV Push, every 6 hr, PRN senna, 17.2 mg= 2 tab, Oral, BID, PRN Soap Suds Enema, 1 packet, CT, Daily, PRN Tessalon Perles, 200 mg= 2 cap, Oral, TID, PRN Toradol, 30 mg= 1 mL, IV Push, every 6 hr, PRN Home atorvastatin 40 mg oral tablet, 40 mg= 1 tab, Oral, Daily B-D UF III SHORT PEN NEED MIS, See instructions Dexcom G6 sensors, See instructions Diflucan 150 mg oral tablet, 150 mg= 1 tab, Oral, Once ergocalciferol 1.25 mg (50,000 intl units) oral capsule, 06696 IntlUnit= 1 cap, Oral, every week fenofibrate 30 mg oral capsule, 30 mg= 1 cap, Oral, Daily, 3 refills fenofibrate 40 mg oral tablet, 40 mg= 1 tab, Oral, Daily FUTURO COMPRESSION SOCKS, See instructions FUTURO COMPRESSION SOCKS, See instructions Glucagon Emergency Kit for Low Blood Sugar, See Instructions, PRN HumuLIN R KwikPen (Concentrated) 500 units/mL subcutaneous solution, 200 units, Intradermal, AC levothyroxine, 224 mcg, Oral, Daily levothyroxine 100 mcg (0.1 mg) oral tablet, 100 mcg= 1 tab, Oral, Daily, 3 refills levothyroxine 125 mcg (0.125 mg) oral tablet, 125 mcg= 1 tab, Oral, Daily, 3 refills lisinopril 10 mg oral tablet, 10 mg= 1 tab, Oral, Daily, 3 refills multivitamin adult, oral tablet, 1 tab, Oral, Daily ONETOUCH VERIO FLEX KIT ONETOUCH VERIO MARLENE torsemide 20 mg oral tablet, 1 tab, Oral, TID, PRN, 1 refills triamcinolone 0.1% topical cream, 1 t[place], Topical, BID Vitamin C 500 mg oral tablet, 500 mg= 1 tab, Oral, Daily ZyrTEC-D 5 mg-120 mg oral tablet, extended release, 1 tab, Oral, every 24 hr Electronically Signed on 01/01/23 10:[address] Emergency department Note * Noemy Waters: PERFORM Event Display: ED Notes Authored Date: [id number] Progress note * Hortensia Nieto MD: PERFORM Event Display: Progress Note - Physician Authored Date: [id number] NIKUNJTATIOTTO DHARA M :1995 Age:27 years Sex:Female Visit Date:12/30/2022 Primary Care Physician: Jamila Archer MD Subjective The patient is being seen examined as a follow-up for acute hypoxic??respiratory failure secondary to pneumonia??and right-sided??CHF with pulmonary hypertension??and underlying OHS??as well as type 1 diabetes mellitus with hyperglycemia, hypertension, hyperlipidemia, morbid obesity, hypothyroidism.?? Patient remains on O2 via nasal cannula.?? Remains dyspneic and not at her baseline.?? Continuesto complain of cough. ??No acute events overnight. ??Received significant amount of??insulin yesterday due to??hyperglycemia from steroids. Review of Systems Constitutional:?No??fevers,?No??chills,?No??sweats Eye:?No??recent visual problems ENT:?No??ear pain,?No??nasal congestion,?No??sore throat Respiratory:?Positive for??shortness of breath,?Positive for??cough Cardiovascular:?No??Chest pain,?No??palpitations,?No??syncope Gastrointestinal:?Nonausea,?No??vomiting,?No??diarrhea Genitourinary:?No??hematuria Kamran/Lymph:?No??bruising tendency,?No??swollen lymph glands Endocrine:?No??excessive thirst,??No??excessive hunger Musculoskeletal:??No??back pain,??No??neck pain,??No??joint pain,??No??muscle pain,??No??decreased range of motion Integumentary:?No??rash,?No??pruritus,?No??abrasions Neurologic: Alert & oriented X 4 Psychiatric:?No??anxiety,?No??depression Objective Vitals & Measurements T:??36.2?C ??(Temporal Artery)?? TMIN:??35.7?C ??(Temporal Artery)?? TMAX:??36.6?C ??(Temporal Artery)?? HR:??88??(Peripheral)?? RR:??20?? BP:??127/70?? SpO2:??95%?? Pain Score:??0?? O2 Flow Rate:??1?? O2 Therapy:??Nasal cannula?? Physical Exam General: Alert and oriented,??morbidly obese, Mild??acute distress Eye: PERRL, HENT: Normocephalic, clear tympanic membranes,? Neck: Supple, non-tender,?No??carotid bruits,?No??JVD,?No??lymphadenopathy Lungs:??Expiratory Wheezing?? Respiration:??Labored Heart:?Normal? rate,?Regular??rhythm,?No??murmur,?No??gallop,?No??edema Abdomen: Soft, non-tender, non-distended,?Normal? bowel sounds,?No??masses Musculoskeletal:?Normal? range of motion and strength,?No??tenderness,?No??swelling Skin: Skin is warm, dry and pink,?No??rashes,?No??lesions Neurologic: Awake, alert and oriented X4, Psychiatric: Cooperative, appropriate mood and affect Assessment/Plan 1.??Acute hypoxemic respiratory failure??J96.01 Acute hypoxic respiratory failure??secondary to pneumonia??with chronic component of obesity hypoventilation syndrome, obstructive sleep apnea and pulmonary hypertension. ??Patient remains on O2 via nasal cannula dyspnea is not at baseline. ??Continue ceftriaxone and azithromycin.?? Continue DuoNebs as needed.?? O2 supplementation as needed to maintain oxygen saturation greater than 90%.?? Incentive spirometry every 1 hour??while awake.?? Lengthy discussion was had about??lifestyle modifications and weight loss??as her restrictive lung disease from her obesity is a??significant??component of her respiratory failure. 2.??Pneumonia??J18.9 3.??Type 1 diabetes??E10.9 Continue??home Humulin R??200 units in the morning, 200 units at lunchtime and 100 units at nighttime.?? Insulin sliding scale for correction, diabetic diet, Chemstrips AC plus at bedtime. 4.??HTN (hypertension)??I10 Continue lisinopril 10 mg p.o. daily. 5.??HLD (hyperlipidemia)??E78.5 Continue atorvastatin 40 mg p.o. daily. 6.??Morbid obesity??E66.01 7.??HOLLIE treated with BiPAP??G47.33 BiPAP at night. 8.??Thyroid nodule??E04.1 Follow-up with ultrasound for thyroid nodule. 9.??Mediastinal adenopathy??R59.0 Repeat imaging on outpatient basis for adenopathy likely related to pneumonia and monitor for resolution. 10.??Pulmonary hypertension??I27.20 Pulmonary hypertension seen on echocardiogram related to severe obesity, HOLLIE and OHS.?? Continue tomonitor.?? Work-up on outpatient basis. ??May require right heart catheterization. Hypothyroidism??E03.9 Continue levothyroxine??225 mcg p.o. daily. Orders: cefTRIAXone, 2 g = 50 mL, IV Piggyback, Soln, every 24 hr, Antibiotic Indication Pneumonia- CAP, Administer over: 0.5 hr, First Dose: 12/31/22 12:00:00 EDT, Routine, 100 mL/hr PT Additional Treatment Acute., 01/01/23 9:00:00 EDT, PT treatment, Sun//// Electronically Signed on 01/01/23 12:50 PM Hortensia Nieto MD History and physical note * 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: MODIFY, MODIFY, PERFORM Event Display: History and Physical Authored Date: DHARA MIRAMONTES :1995 Age:27 years Sex:Female Visit Date:12/30/2022 Primary Care Physician: Jamila Archer MD Chief Complaint shortness of breath History of Present Illness Pt is a 27-yr-old female??with a PMH of Autoimmune thyroiditis, DM Type 1, HTN, HLD, Gen. Edema,??Obstructive Sleep Apnea, Obesity Hypoventilation Syndrome and Morbid obesity who presented to the [facility] on 12/30 due to SOB that had started during the morning hrs on day of presentation.?? Pt states that she is normally SOB but today's incident was completely different as even walking a short distan ce caused to be extremely dyspneic. She denied the associated symptoms of chest pain, palpitation, diaphoresis, fevers and chills.?? She states that she has gained nearly 10lbs but believes its from oral steroids that she was prescribed for cellulitis on her legs. On arrival to the ED she was foundto have SPO2 of 83% RA and required as much as 4-5 L to maintain POX > 90%.??Labs involving CBC, CMP,?Troponin?? & Respiratory panel labs were all unremarkable. She had elevated BNP of 492 &??D-dimer-1.23. She had??a follow-up with CTA of the chest which ruled out Pulmonary Embolism.?? However it revealed consolidation with the segun. Lower lobes suggestive of Pneumonia and wide mediastinum & ??RT>LT?? hilar adenopathy. Pt was noted to be quite dyspneic at the ED with respirations in the 30's. ABG's were normal.??She received treatment with Lasix 80mg IV, Solu-Medrol 125mg IV & DuoNeb treatment, which relieved her dyspnea at rest, but when she had to stand up to use the BSC, she desaturated easily into the mid 80's and would get extremely SOB.? Pt will be admitted for Acute Hypoxemic Respiratory Failure secondary to Pneumonia and for further evaluation of her Dyspnea. Review of Systems Constitutional:?No??fevers,?No??chills,?No??sweats Eye:?No??recent visual problems ENT:?No??ear pain,?No??nasal congestion,?No??sore throat Respiratory:?Positive for??shortness of breath,?Positive for??cough Cardiovascular:?No??Chest pain,?No??palpitations,?No??syncope Gastrointestinal:?Nonausea,?No??vomiting,?No??diarrhea Genitourinary:?No??hematuria Kamran/Lymph:?No??bruising tendency,?No??swollen lymph glands Endocrine:?No??excessive thirst,??No??excessive hunger Musculoskeletal:??No??back pain,??No??neck pain,??No??joint pain,??No??muscle pain,??No??decreased range of motion Integumentary:?No??rash,?No??pruritus,?No??abrasions Neurologic: Alert & oriented X 4 Psychiatric:?No??anxiety,?No??depression Physical Exam Vitals & Measurements T:??36.5?C ??(Temporal Artery)?? TMIN:??36.5?C ??(Temporal Artery)?? TMAX:??37.1?C ??(Temporal Artery)?? HR:??100??(Peripheral)?? RR:??22?? BP:??118/77?? SpO2:??95%?? HT:??149.000??cm?? WT:??150.000??kg?? BMI:??67.560?? Pain Score:??0?? O2 Flow Rate:??5?? O2 Therapy:??BiPAP?? General: Alert and oriented,??morbidly obese, Mild??acute distress Eye: KOMAL PYLET: Normocephalic, clear tympanic membranes,? Neck: Supple, non-tender,?No??carotid bruits,?No??JVD,?No??lymphadenopathy Lungs:??Expiratory Wheezing?? Respiration:??Labored Heart:?Normal? rate,?Regular??rhythm,?No??murmur,?No??gallop,?No??edema Abdomen: Soft, non-tender, non-distended,?Normal? bowel sounds,?No??masses Musculoskeletal:?Normal? range of motion and strength,?No??tenderness,?No??swelling Skin: Skin is warm, dry and pink,?No??rashes,?No??lesions Neurologic: Awake, alert and oriented X4, Psychiatric: Cooperative, appropriate mood and affect Assessment/Plan 1.??Acute hypoxemic respiratory failure??J96.01 -Presented with SPO2 in the low 80%, with the work-up ruling out Pulmonary Embolism and ACS/MO.?? Provide Pulmonary toileting with IS, nebs, NIPPV, O2 Supplementation, push activity. -Wean down/titrate 02 as able. -Follow blood cultures. ?? 2.??Pneumonia??J18.9 -Cover on Rocephin and Azithromycin, push pulmonary toileting with IS, DuoNeb,?? Oxygen supplementation?? and wean off as able. ?? 3.??Acute diastolic heart failure??I50.31 -Pt is maintained on Lasix 40mg BID daily. Hold oral doses and step up tx with IV Diuretics. Given Bumex 2 mg x 1, to be followed by 1mg BID. -Manage fluid overload -Would benefit from modifiable risk factors- low Na, exercise, control B/P -Monitor strict I/0, Daily wt, -Echo 11/28/2022; EF of 60-65% ?? 4.??Dyspnea on exertion??R06.09 -Likely due to a component of pneumonia and HF. Plan as # 1. She desaturates easily into mid 80's with activity. Instruct on relaxation and deep breathing techniquies. Titrate O2 to maintain > 89%. ?? 5.??Type 1 diabetes??E10.9 -AccuCheck ACHS, Diabetic diet, SSI. Will follow glycemic protocol for now until she can sign a waiver to continue with DEXCOM. ?? 6.??HTN (hypertension)??I10 -Continue Lisinopril 10mg daily. ?? 7.??HLD (hyperlipidemia)??E78.5 -Continue Atorvastatin 40mg daily evening ?? 8.??Morbid obesity??E66.01 -Encourage life style modification. ?? 9.??HOLLIE treated with BiPAP??G47.33 -Is compliant with her BIPAP unit which will be continue utilizing it with Oxygen bleeding in to maintain SPO2> 89%. ?? Hypothyroidism??E03.9 -Continue Synthroid 225mcg daily. Ordered: levothyroxine, 125 mcg = 1.67 tab, Oral, Tab, Daily, First Dose: 12/31/22 9:00:00 EDT, Routine levothyroxine, 100 mcg = 4 tab, Oral, Tab, Daily, First Dose: 12/31/22 9:00:00 EDT, Routine ?? Orders: acetaminophen, 650 mg = 2 tab, Oral, Tab, every 6 hr, PRN pain, mild, First Dose: 12/31/22 1:44:00 EDT, Routine atorvastatin, 40 mg = 1 tab, Oral, Tab, Daily, First Dose: 12/31/22 17:00:00 EDT, Routine azithromycin + Sodium Chloride 0.9% 125 mL, 250 mg = 0.5 EA, IV Piggyback, Powder-Inj, every 24 hr for 4 days, Antibiotic Indication Pneumonia- CAP, Administer over: 1 hr, First Dose: 12/31/22 22:00:00 EDT, Stop Date: 01/04/23 21:59:00 EDT, Physician Stop, Routine, 125 mL/hr Tessalon Perles, 200 mg = 2 cap, Oral, Cap, TID, PRN cough, First Dose: 12/31/22 4:38:00 EDT, Routine budesonide 0.5 mg/2 mL inhalation suspension, 0.5 mg = 2 mL, NEB, Susp, every 4 hr RT, First Dose: 12/31/22 3:00:00 EDT, Routine bumetanide, 2 mg = 8 mL, IV Push, Soln-IV, Daily, First Dose: 12/31/22 9:00:00 EDT, Routine !-Rocephin, 1 g = 1 EA, IV Piggyback, Powder-Inj, every 24 hr, Antibiotic Indication Pneumonia- CAP, Administer over: 0.5 hr, First Dose: 12/31/22 23:00:00 EDT, Routine, 200 mL/hr enoxaparin, 40 mg = 0.4 mL, Subcutaneous, Soln, every 24 hr, First Dose: 12/31/22 1:44:00 EDT, NOW !-Robitussin, 200 mg = 10 mL, Oral, Syrup, every 4 hr, PRN cough, First Dose: 12/31/22 4:38:00 EDT,Routine insulin lispro (HumaLog) correction- moderate, Moderate Scale, Subcutaneous, Soln, AC & bedtime, First Dose: 12/31/22 7:30:00 EDT, Routine Toradol, 30 mg = 1 mL, IV Push, Soln, every 6 hr, PRN pain, moderate, First Dose: 12/31/22 1:44:00 EDT, Routine lidocaine 1% injectable solution, 5 mg 0.5 mL, Intradermal, Soln, As Directed, PRN other (see comment), First Dose: 12/31/22 1:44:00 EDT, Routine lisinopril, 10 mg = 2 tab, Oral, Tab, Daily, First Dose: 12/31/22 9:00:00 EDT, Routine Milk of Magnesia, 30 mL, Oral, Susp, TID, PRN constipation, First Dose: 12/31/22 1:44:00 EDT, Routine morphine, 2 mg = 1 mL, IV Push, Soln-IV, every 2 hr, PRN pain, severe, First Dose: 12/31/22 1:44:00EDT, Routine ondansetron, 4 mg = 2 mL, IV Push, Soln, every 6 hr, PRN nausea/vomiting, First Dose: 12/31/22 1:44:00 EDT, Routine senna, 17.2 mg = 2 tab, Oral, Tab, BID, PRN constipation, First Dose: 12/31/22 1:44:00 EDT, Routine Soap Suds Enema, 1 packet, CT, Daily PRN constipation, 12/31/22 1:44:00 EDT Normal Saline Flush, 10 mL, IV Push, Soln, every 12 hr (rojas), First Dose: 12/31/22 9:00:00 EDT, Routine Ambulate, 12/31/22 1:44:00 EDT, PRN, 3 times daily Basic Metabolic Panel, Blood, Routine, 12/31/22 6:00:00 EDT, every morning, for 3 days, Lab Collect Bi-level Positive Airway Pressure (BiPAP), 12/31/22 3:15:00 EDT, 22, 16, Pts home unit to be used. Pre-set settings cannot be changed., Constant Indicator Blood Glucose Monitoring POC, 12/31/22 7:30:00 EDT, QIDACHS, 12/31/22 7:30:00 EDT Cardiac Monitoring, 12/31/22 1:44:00 EDT, Telemetry CBC w/ Diff, Blood, Routine, 12/31/22 6:00:00 EDT, every morning, for 3 days, Lab Collect Diet Order, 12/31/22 1:44:00 EDT, Diabetic Incentive Spirometry Respiratory, Routine, every 2 hr while awake, Atelectasis Intake and Output, 12/31/22 1:44:00 EDT, every 8 hrs, Constant Indicator, 12/31/22 1:44:00 EDT Magnesium Level, Blood, Routine, 12/31/22 6:00:00 EDT, every morning, for 3 days, Lab Collect Oxygen Therapy, SpO2 goal 90% or greater, PRN PSO Admit to Inpatient, Semi-Private, Inpatient, Hortensia Nieto MD, 12/31/22 1:39:00 EDT, 12/31/22 1:39:00 EDT, 12/31/22 1:39:00 EDT, 2 midnights or more Resuscitation Status, 12/31/22 1:44:00 EDT, Full Code Sequential Compression Devices (SCD's), 12/31/22 1:44:00 EDT, Constant Order, Intermittent pneumatic compression Up with Assistance, 12/31/22 1:44:00 EDT, Constant Order Vital Signs, 12/31/22 1:44:00 EDT, Constant order, every 4 hrs Weight, 12/31/22 1:44:00 EDT, Daily Problem List/Past Medical History Ongoing Adult health examination Autoimmune thyroiditis Bilateral lower extremity edema Developmental disorder Diabetic ketoacidosis Erythroderma HLD (hyperlipidemia) HTN (hypertension) Hyperlipidemia Hypertensive disorder Idiopathic sleep related non-obstructive alveolar hypoventilation Intermenstrual bleeding - irregular Irregular sleep-wake pattern Kidney disease Localized edema Morbid obesity Obesity Obstructive sleep apnea syndrome HOLLIE treated with BiPAP Severe obesity Tachycardia Tension-type headache Type 1 diabetes Historical No qualifying data Procedure/Surgical History ???Due 10/2025 (10/31/2022)???ORIF - Open reduction and internal fixation of fracture (12/22/2020)???Adenoidectomy (09/10/2013)???Tonsillectomy (09/10/2003) Medications Inpatient !-Robitussin, 200 mg= 10 mL, Oral, every 4 hr, PRN !-Rocephin acetaminophen, 650 mg= 2 tab, Oral, every 6 hr, PRN atorvastatin, 40 mg= 1 tab, Oral, Daily azithromycin + Sodium Chloride 0.9% 125 mL budesonide 0.5 mg/2 mL inhalation suspension, 0.5 mg= 2 mL, NEB, every 4 hr RT bumetanide, 2 mg= 8 mL, IV Push, Daily enoxaparin, 40 mg= 0.4 mL, Subcutaneous, every 24 hr insulin lispro (HumaLog) correction- moderate, Moderate Scale, Subcutaneous, AC & bedtime levothyroxine, 125 mcg, Oral, Daily levothyroxine, 100 mcg, Oral, Daily lidocaine 1% injectable solution, 5 mg= 0.5 mL, Intradermal, As Directed, PRN lisinopril, 10 mg= 2 tab, Oral, Daily Milk of Magnesia, 30 mL, Oral, TID, PRN morphine, 2 mg= 1 mL, IV Push, every 2 hr, PRN Normal Saline Flush, 10 mL, IV Push, every 12 hr (rojas) ondansetron, 4 mg= 2 mL, IV Push, every 6 hr, PRN senna, 17.2 mg= 2 tab, Oral, BID, PRN Soap Suds Enema, 1 packet, CT, Daily, PRN Tessalon Perles, 200 mg= 2 cap, Oral, TID, PRN Toradol, 30 mg= 1 mL, IV Push, every 6 hr, PRN Home atorvastatin 40 mg oral tablet, 40 mg= 1 tab, Oral, Daily B-D UF III SHORT PEN NEED MIS, See instructions Dexcom G6 sensors, See instructions Diflucan 150 mg oral tablet, 150 mg= 1 tab, Oral, Once ergocalciferol 1.25 mg (50,000 intl units) oral capsule, 96596 IntlUnit= 1 cap, Oral, every week fenofibrate 30 mg oral capsule, 30 mg= 1 cap, Oral, Daily, 3 refills fenofibrate 40 mg oral tablet, 40 mg= 1 tab, Oral, Daily FUTURO COMPRESSION SOCKS, See instructions FUTURO COMPRESSION SOCKS, See instructions Glucagon Emergency Kit for Low Blood Sugar, See Instructions, PRN HumuLIN R KwikPen (Concentrated) 500 units/mL subcutaneous solution, 200 units, Intradermal, AC levothyroxine, 224 mcg, Oral, Daily levothyroxine 100 mcg (0.1 mg) oral tablet, 100 mcg= 1 tab, Oral, Daily, 3 refills levothyroxine 125 mcg (0.125 mg) oral tablet, 125 mcg= 1 tab, Oral, Daily, 3 refills lisinopril 10 mg oral tablet, 10 mg= 1 tab, Oral, Daily, 3 refills multivitamin adult, oral tablet, 1 tab, Oral, Daily ONETOUCH VERIO FLEX KIT ONETOUCH VERIO MARLENE torsemide 20 mg oral tablet, 1 tab, Oral, TID, PRN, 1 refills triamcinolone 0.1% topical cream, 1 ternton, Topical, BID Vitamin C 500 mg oral tablet, 500 mg= 1 tab, Oral, Daily ZyrTEC-D 5 mg-120 mg oral tablet, extended release, 1 tab, Oral, every 24 hr Allergies rOPINIRole morphine Social History Alcohol Current, [...] Recorded hepatitis B pediatric vaccine 1995 Recorded Lab Results Last 72 Hours?? Chemistry Event Name?? Event Result?? Date/Time?? Sodium Level 138 mmol/L 12/30/22 20:08:00 Potassium Level 3.8 mmol/L 12/30/22 20:08:00 Chloride Level 99 mmol/L 12/30/22 20:08:00 CO2 26 mmol/L 12/30/22 20:08:00 BUN 18 mg/dL 12/30/22 20:08:00 Glucose Level 157 mg/dL??High 12/30/22 20:08:00 Creatinine Level 0.92 mg/dL 12/30/22 20:08:00 eGFR AA 89 12/30/22 20:08:00 eGFR Non-AA 89 12/30/22 20:08:00 Calcium Level 9.4 mg/dL 12/30/22 20:08:00 Glucose POC 271 mg/dL??High 12/31/22 03:00:00 Troponin-I 14.2 pg/mL 12/30/22 20:08:00 NT-proBNP 492 pg/mL??High 12/30/22 20:08:00 Beta hCG Qnt <1??Low 12/30/22 20:08:00 ? Hematology Event Name?? Event Result?? Date/Time?? WBC 10 x10^3/mcL 12/30/22 20:08:00 RBC 3.8 x10^6/mcL??Low 12/30/22 20:08:00 Hgb 11.2 g/dL??Low 12/30/22 20:08:00 Hct 35.2 %??Low 12/30/22 20:08:00 MCV 93.1 12/30/22 20:08:00 MCH 29.6 pg 12/30/22 20:08:00 MCHC 31.8 g/dL 12/30/22 20:08:00 RDW-CV 16.3 % 12/30/22 20:08:00 Platelets 268 x10^3/mcL 12/30/22 20:08:00 Neutro Auto 65.6 % 12/30/22 20:08:00 Lymph Auto 24.5 % 12/30/22 20:08:00 [place] Auto 4.1 % 12/30/22 20:08:00 Eos, Auto 4.3 % 12/30/22 20:08:00 Basophil Auto 0.5 % 12/30/22 20:08:00 Imm Gran Auto 1 %??High 12/30/22 20:08:00 Neutro Absolute 6.5 x10^3/mcL 12/30/22 20:08:00 ? Blood Gases Event Name?? Event Result?? Date/Time?? FiO2 Arterial 4L oxy mask 12/30/22 23:45:00 pH Art 7.39 pH unit(s) 12/30/22 23:45:00 pCO2 Art 45 mmHg 12/30/22 23:45:00 pO2 Art 94 mmHg 12/30/22 23:45:00 HCO3 Art 27 mmol/L 12/30/22 23:45:00 O2 Sat Art 98 % 12/30/22 23:45:00 CO2 Total Arterial 29 mmol/L 12/30/22 23:45:00 Base Excess Arterial 1.9 mmol/L 12/30/22 23:45:00 Otoniel Test Art N/A 12/30/22 23:45:00 Puncture Site Left Radial 12/30/22 23:45:00 Eloy-Art Gradient 98 % 12/30/22 23:45:00 ? All Other Results Event Name?? Event Result?? Date/Time?? 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 No 12/30/22 19:13:00 Symptomatic as defined by CDC? No 12/30/22 19:13:00 Hospitalized due to COVID-19? No 12/30/22 19:13:00 In ICU? No 12/30/22 19:13:00 Group care resident? No 12/30/22 19:13:00 status? Unknown 12/30/22 19:13:00 SARS-CoV-2(Covid19)PCR(GXpert COVFLURSV) NEGATIVE 12/30/22 19:13:00 Flu A (GXpert COVFLURSV) NEGATIVE 12/30/22 19:13:00 Flu B (GXpert COVFLURSV) Neg-GeneXPert 12/30/22 19:13:00 RSV (GXpert COVFLURSV) Neg-GeneXPert 12/30/22 19:13:00 ? Diagnostic Results ? CT Angio Chest PROCEDURE INFORMATION:?? Exam: CTA Chest With Contrast?? Exam date and time: 12/30/2022 9:00 PM?? Age: 27 years old?? Clinical indication: SOB hypoxia? TECHNIQUE:?? Imaging protocol: Computed tomographic angiography of the chest with?? contrast.?? 3D rendering (Not supervised by radiologist): MIP and/or 3D?? reconstructed images were created by the technologist.?? Radiation optimization: All CT scans at this facility use at least?? one of these dose optimization techniques: automated exposure?? control; mA and/or kV adjustment per patient size (includes targeted?? exams where dose is matched to clinical indication); or iterative?? reconstruction.?? Contrast material: OMNI 350; Contrast volume: 80 ml; Contrast route:?? INTRAVENOUS (IV); ? REPORTING DATA:?? Count of CT and Cardiac NM exams in prior 12 months: This patient has?? received 0 known CTs and 0 known cardiac nuclear medicine studies in?? the 12 months prior to the current study.? COMPARISON:?? CT CHEST/ABD/PELVIS W/CONTRAST 12/12/2020 11:40 AM? FINDINGS:?? Limitations: Study limited by patient's body habitus.? Pulmonary arteries: Pulmonary artery opacification is adequate. No?? evidence for pulmonary embolism.?? Aorta: No thoracic aortic aneurysm. Opacification is suboptimal for?? the evaluation of dissection without large dissection flap?? identified.? Thyroid: Suggestion of ovoid hypodense 1.3 cm left thyroid lobe?? nodule although evaluation limited by patient's body habitus.?? Lungs: Focal areas of patchy consolidation within the bilateral lower?? lobes. Mild nonspecific mosaic attenuation suspected related to?? dependent atelectasis but nonspecific. There are few scattered small?? pulmonary nodules measuring up to 4 mm within the right middle lobe?? (series 5, image 23). If the patient does not have known cancer,?? follow up should be based on clinical information because of the low?? risk of cancer in this age group. (Reference: [place])?? Pleural spaces: No pneumothorax. No pleural effusion.?? Heart: Mild cardiomegaly. No pericardial effusion.?? Lymph nodes: There is mediastinal adenopathy, for example 1.2 cm?? short axis right paratracheal lymph node (series 3, image 104) and?? the 1.8 cm short axis subcarinal lymph node (series 3, image 162).?? There is mild right greater than left hilar adenopathy for example?? 1.2 cm short axis right hilar lymph node (series 3, image 145) and?? the 1.0 cm short axis left hilar lymph node (series 3, image 176).? Liver: Liver appears enlarged however incompletely evaluated on this?? exam limiting evaluation.?? Spleen: Spleen appears enlarged however incompletely evaluated on?? this exam limiting evaluation.?? Bones/joints: Unremarkable. No acute fracture.?? Soft tissues: No focal abnormality however peripheral chest wall soft?? tissues excluded from field of view precluding evaluation.? IMPRESSION:?? 1. ?? No evidence of pulmonary embolism.?? 2. ?? Focal areas of nonspecific patchy consolidation within the?? bilateral lower lobes. Correlate clinically for atelectasis versus?? infection.?? 3. ?? Mediastinal and right greater than left hilar adenopathy,?? nonspecific. Malignancy not excluded. Correlate clinically.?? 4. ?? Mild cardiomegaly.?? 5. ?? Suspected hepatosplenomegaly however incompletely evaluated on?? this exam.?? 6. ?? Suggested 1.3 cm left thyroid lobe nodule. Recommend further?? evaluation with nonemergent thyroid sonogram.? COMMENTS:?? Consistent with the [employer] [place] [employer]'s Incidental?? Findings Committee white paper (J Am Mk Radiol 2015): In patients?? under 35 years old with an incidental thyroid nodule equal to or?? greater than [address], MRI or extrathyroidal US, further?? evaluation with dedicated thyroid US is recommended for patients with?? normal life expectancy and without comorbidities. For smaller nodules?? without suspicious features, no further evaluation or follow up is?? recommended.? REFERENCES:?? Delma Hart et al. Guidelines for Management of Incidental Pulmonary?? Nodules Detected on CT Images: From the Fleischner Society 2017.?? Radiology. 2017;284(1):228-243.? Report signed by: Austin Yin On 12/30/2022 ??21:41:04 ? 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 Date of admission:??12/30/2022 ?? Date of discharge:??01/02/2023 ?? Discharge diagnoses:??Acute hypoxic respiratory failure, Bibasilar pneumonia,??Pulmonary hypertension??by echocardiogram,??Morbid obesity, Type 1 diabetes mellitus ?? Consultations:??None ?? Operations/procedures:??None ?? Summary of presentation and course: This is a 27-year-old lady with morbid obesity and??type 1 diabetes mellitus??who was admitted withnew onset hypoxemia??and was found to have bibasilar pneumonia??which responded to IV antibiotic therapy with patient on room air at discharge.?? She does have hypoxemia at night with sleep apnea??be treated with BiPAP and this will be addressed with pulmonology as to whether she can have oxygen athome.?? She is on chronic diuretics and will continue the same having some??diuresis during her hospital stay.?? She is intermittently on steroids and this does cause her obesity to worsen.?? She lives with her grandmother.?? She is a hospital stay the patient was very anxious about??her multiple problems but this is chronic and can be followed up by PCP and multiple specialists seen at [facility] and cardiology to be seen??locally.?? She did have an echocardiogram whichdid reveal??increased PA pressures and??mild with??normal atria and preserved left ventricular ej ection fraction??as well as normal RV function.?? Labs were stable??during her hospital stay??mild elevation of WBC and mild anemia??with glucometers covered with insulin??sliding scale??using short acting insulin.?? Patient was discharged home to self-care and will return to work next week??with??mira coto??visits??at tertiary [facility] and locally at the end of this week. ?? Disposition: Discharged home to self-care with??follow-up PCP as scheduled and specialty care as scheduled.?? Finish antibiotic therapy at home. ??Prognosis poor for immediate change.?? Patient is full code. ?? Greater than 30 minutes was spent on the day of discharge in coordinating care and arranging outpatient follow-up. Physical Exam Vitals & Measurements T:??36.4?C ??(Temporal Artery)?? TMIN:??35?C ??(Temporal Artery)?? TMAX:??36.4?C ??(Temporal Artery)?? HR:??93??(Peripheral)?? RR:??20?? BP:??130/87?? SpO2:??94%?? Pain Score:??3?? O2 Flow Rate:??2?? O2 Therapy:??Room air?? General:??Patient is short stature and morbidly obese. ??Javier face with any exertion.?? Alert and oriented x3 and dyspneic with??exertion??but in no acute distress. HEENT:??Normocephalic with??Hardin facies,??eyes with pupils equal and reactive to light symmetrically,??extraocular movement tact and sclera anicteric. ??Oropharynx with moist mucosa and??normal dentition. Neck: Supple without JVD. Lungs:??Fair aeration and clear to auscultation over??lung barnes with decreased aeration at bases and upper airway noise with expiratory wheeze??occasionally. Breast: Exam deferred. Heart: Regular rate and rhythm with??quiet systolic murmur left sternal border, no gallop??or rub. Abdomen: Morbidly obese with large pannus.?? Soft and nontender to palpation with no palpable hepatosplenomegaly. ??No guarding. Genitalia/rectal: Exam deferred. Extremities:??4+ edema nonpitting lower extremities with??compression stockings in place. ??No clubbing or cyanosis. Skin:??Patient is flushed over most of her body,??otherwise normal color, warm and dry. Neuro: Cranial nerves II to XII grossly intact, no focalizing motor deficits.?? No tremor. Psych: Anxious, pressured speech and??slightly depressed mood. ??No abnormal thought processes. ??Remote and recent memory intact. Medications Inpatient !-Robitussin, 200 mg= 10 mL, Oral, every 4 hr, PRN acetaminophen, 650 mg= 2 tab, Oral, every 6 hr, PRN atorvastatin, 40 mg= 1 tab, Oral, Daily azithromycin + Sodium Chloride 0.9% 125 mL cefTRIAXone, 2 g= 50 mL, IV Piggyback, every 24 hr Dextrose 50% intravenous solution, 12.5 g= 25 mL, IV Push, Once, PRN enoxaparin, 40 mg= 0.4 mL, Subcutaneous, every 24 hr glucagon, 1 mg= 3 mL, IM, As Directed, PRN glucose 40% oral gel, 15 g= 30 mL, Oral, As Directed, PRN glucose 40% oral gel, 30 g= 60 mL, Oral, As Directed, PRN HumuLIN R KwikPen (Concentrated) 500 units/mL subcutaneous solution, 200 unit(s)/0.4 ml, Subcutaneous, BID(AC) HumuLIN R KwikPen (Concentrated) 500 units/mL subcutaneous solution, 100 unit(s)/0.2 ml, Subcutaneous, Daily insulin lispro (HumaLog) correction- moderate, Moderate Scale, Subcutaneous, AC & bedtime levothyroxine, 125 mcg, Oral, Daily levothyroxine, 100 mcg, Oral, Daily lidocaine 1% injectable solution, 5 mg= 0.5 mL, Intradermal, As Directed, PRN lisinopril, 10 mg= 2 tab, Oral, Daily Milk of Magnesia, 30 mL, Oral, TID, PRN morphine, 2 mg= 1 mL, IV Push, every 2 hr, PRN Normal Saline Flush, 10 mL, IV Push, every 12 hr (rojas) ondansetron, 4 mg= 2 mL, IV Push, every 6 hr, PRN senna, 17.2 mg= 2 tab, Oral, BID, PRN Soap Suds Enema, 1 packet, CT, Daily, PRN Tessalon Perles, 200 mg= 2 cap, Oral, TID, PRN Toradol, 30 mg= 1 mL, IV Push, every 6 hr, PRN Home atorvastatin 40 mg oral tablet, 40 mg= 1 tab, Oral, Daily B-D UF III SHORT PEN NEED MIS, See instructions cefpodoxime 200 mg oral tablet, 200 mg= 1 tab, Oral, every 12 hr Dexcom G6 sensors, See instructions Diflucan 150 mg oral tablet, 150 mg= 1 tab, Oral, Once ergocalciferol 1.25 mg (50,000 intl units) oral capsule, 56387 IntlUnit= 1 cap, Oral, every week FUTURO COMPRESSION SOCKS, See instructions FUTURO COMPRESSION SOCKS, See instructions Glucagon Emergency Kit for Low Blood Sugar, See Instructions, PRN HumuLIN R KwikPen (Concentrated) 500 units/mL subcutaneous solution, 200 units, Intradermal, AC levothyroxine 100 mcg (0.1 mg) oral tablet, 100 mcg= 1 tab, Oral, Daily, 3 refills levothyroxine 125 mcg (0.125 mg) oral tablet, 125 mcg= 1 tab, Oral, Daily, 3 refills lisinopril 10 mg oral tablet, 10 mg= 1 tab, Oral, Daily, 3 refills multivitamin adult, oral tablet, 1 tab, Oral, Daily ONETOUCH VERIO FLEX KIT ONETOUCH VERIO MARLENE torsemide 20 mg oral tablet, 1 tab, Oral, TID, PRN, 1 refills triamcinolone 0.1% topical cream, 1 [place], Topical, BID Trulicity Pen 0.75 mg/0.5 mL subcutaneous solution, 0.75 mg= 0.5 mL, Subcutaneous, every week Vitamin C 500 mg oral tablet, 500 mg= 1 tab, Oral, Daily Zithromax 500 mg oral tablet, 500 mg= 1 tab, Oral, Daily ZyrTEC-D 5 mg-120 mg oral tablet, extended release, 1 tab, Oral, every 24 hr Procedure/Surgical History ???Due 10/2025 (10/31/2022)???ORIF - Open reduction and internal fixation of fracture (12/22/2020)???Adenoidectomy (09/10/2013)???Tonsillectomy (09/10/2003) Social History Alcohol Current, 1-2 times per month Electronic Cigarette/Vaping Electronic Cigarette Use: Never. 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 Home/Environment Lives with grandparents. Living situation: Home/Independent. Nutrition/Health Caffeine intake amount: about 150 mg/day. Substance Use Never Tobacco Never tobacco user Tobacco Use:. Lab Results Last 48 Hours?? Chemistry ? Event Name?? Event Result?? Date/Time?? Sodium Level 136 mmol/L 01/02/23 07:00:00 Potassium Level 5 mmol/L 01/02/23 07:00:00 Chloride Level 99 mmol/L 01/02/23 07:00:00 CO2 27 mmol/L 01/02/23 07:00:00 BUN 35 mg/dL??High 01/02/23 07:00:00 Glucose Level 268 mg/dL??High 01/02/23 07:00:00 Creatinine Level 0.9 mg/dL 01/02/23 07:00:00 eGFR AA 91 01/02/23 07:00:00 eGFR Non-AA 91 01/02/23 07:00:00 Calcium Level 8.8 mg/dL 01/02/23 07:00:00 Magnesium Level 2.5 mg/dL??High 01/02/23 07:00:00 Glucose POC 159 mg/dL??High 01/02/23 11:19:00 ? Hematology ? Event Name?? Event Result?? Date/Time?? WBC 10.3 x10^3/mcL??High 01/02/23 07:00:00 RBC 3.8 x10^6/mcL??Low 01/02/23 07:00:00 Hgb 11.4 g/dL??Low 01/02/23 07:00:00 Hct 35.9 %??Low 01/02/23 07:00:00 MCV 94 01/02/23 07:00:00 MCH 29.8 pg 01/02/23 07:00:00 MCHC 31.8 g/dL 01/02/23 07:00:00 RDW-CV 16.4 % 01/02/23 07:00:00 Platelets 228 x10^3/mcL 01/02/23 07:00:00 Neutro Auto 52.2 % 01/02/23 07:00:00 Lymph Auto 34.9 % 01/02/23 07:00:00 [place]oo Auto 7.2 % 01/02/23 07:00:00 Eos, Auto 4.1 % 01/02/23 07:00:00 Basophil Auto 0.5 % 01/02/23 07:00:00 Imm Gran Auto 1.1 %??High 01/02/23 07:00:00 Neutro Absolute 5.4 x10^3/mcL 01/02/23 07:00:00 ? Diagnostic Results Exam: CTA Chest With Contrast?? Exam date and time: 12/30/2022 9:00 PM?? Age: 27 years old?? Clinical indication: SOB hypoxia? TECHNIQUE:?? Imaging protocol: Computed tomographic angiography of the chest with?? contrast.?? 3D rendering (Not supervised by radiologist): MIP and/or 3D?? reconstructed images were created by the technologist.?? Radiation optimization: All CT scans at this facility use at least?? one of these dose optimization techniques: automated exposure?? control; mA and/or kV adjustment per patient size (includes targeted?? exams where dose is matched to clinical indication); or iterative?? reconstruction.?? Contrast material: OMNI 350; Contrast volume: 80 ml; Contrast route:?? INTRAVENOUS (IV); ? REPORTING DATA:?? Count of CT and Cardiac NM exams in prior 12 months: This patient has?? received 0 known CTs and 0 known cardiac nuclear medicine studies in?? the 12 months prior to the current study.? COMPARISON:?? CT CHEST/ABD/PELVIS W/CONTRAST 12/12/2020 11:40 AM? FINDINGS:?? Limitations: Study limited by patient's body habitus.? Pulmonary arteries: Pulmonary artery opacification is adequate. No?? evidence for pulmonary embolism.?? Aorta: No thoracic aortic aneurysm. Opacification is suboptimal for?? the evaluation of dissection without large dissection flap?? identified.? Thyroid: Suggestion of ovoid hypodense 1.3 cm left thyroid lobe?? nodule although evaluation limited by patient's body habitus.?? Lungs: Focal areas of patchy consolidation within the bilateral lower?? lobes. Mild nonspecific mosaic attenuation suspected related to?? dependent atelectasis but nonspecific. There are few scattered small?? pulmonary nodules measuring up to 4 mm within the right middle lobe?? (series 5, image 23). If the patient does not have known cancer,?? follow up should be based on clinical information because of the low?? risk of cancer in this age group. (Reference: Delma)?? Pleural spaces: No pneumothorax. No pleural effusion.?? Heart: Mild cardiomegaly. No pericardial effusion.?? Lymph nodes: There is mediastinal adenopathy, for example 1.2 cm?? short axis right paratracheal lymph node (series 3, image 104) and?? the 1.8 cm short axis subcarinal lymph node (series 3, image 162).?? There is mild right greater than left hilar adenopathy for example?? 1.2 cm short axis right hilar lymph node (series 3, image 145) and?? the 1.0 cm short axis left hilar lymph node (series 3, image 176).? Liver: Liver appears enlarged however incompletely evaluated on this?? exam limiting evaluation.?? Spleen: Spleen appears enlarged however incompletely evaluated on?? this exam limiting evaluation.?? Bones/joints: Unremarkable. No acute fracture.?? Soft tissues: No focal abnormality however peripheral chest wall soft?? tissues excluded from field of view precluding evaluation.? IMPRESSION:?? 1. ?? No evidence of pulmonary embolism.?? 2. ?? Focal areas of nonspecific patchy consolidation within the?? bilateral lower lobes. Correlate clinically for atelectasis versus?? infection.?? 3. ?? Mediastinal and right greater than left hilar adenopathy,?? nonspecific. Malignancy not excluded. Correlate clinically.?? 4. ?? Mild cardiomegaly.?? 5. ?? Suspected hepatosplenomegaly however incompletely evaluated on?? this exam.?? 6. ?? Suggested 1.3 cm left thyroid lobe nodule. Recommend further?? evaluation with nonemergent thyroid sonogram.?? Chest x-ray on day of discharge was stable??with bibasilar??mild infiltrates and no consolidation. Discharge Plan 1.??Acute hypoxemic respiratory failure??J96.01 With bibasilar pneumonia??stable on chest x-ray at discharge,??looking to oxygen with BiPAP at night with sleep apnea.?? Will discuss with pulmonology. ?? 2.??Pneumonia??J18.9 Bibasilar and stable at discharge to continue and finish oral antibiotics at home. ?? 3.??Type 1 diabetes??E10.9 Patient will continue??treatment??for better control. ??Weight loss is advised. ?? 4.??HTN (hypertension)??I10 Continue outpatient medical therapy and monitor with adjustment as needed. ?? 5.??HLD (hyperlipidemia)??E78.5 Continue statin therapy. ?? 6.??Morbid obesity??E66.01 Continue looking toward??diet and exercise as well as GLP-1 agonists as possibility for treatment with??even type 1 diabetes with obesity. ?? 7.??HOLLIE treated with BiPAP??G47.33 Discussed possible use of oxygen at night with BiPAP. ?? 8.??Thyroid nodule??E04.1 Needs follow-up as outpatient. ?? 9.??Mediastinal adenopathy??R59.0 Needs follow-up as outpatient. ?? 10.??Pulmonary hypertension??I27.20 Follow-up with??PCP, weight loss would help. ?? Hypothyroidism??E03.9 On higher dose of thyroid supplement with follow-up and adjustment as needed. ?? Yeast infection??B37.9 Diflucan as needed especially with??use of antibiotics. Ordered: Diflucan 150 mg oral tablet, 150 mg = 1 tab, Oral, Once, Can repeat in 3 days if symptoms persist, # 2 tab, 0 Refill(s), Pharmacy: [id number], 149, cm, 12/31/22 3:07:00 EDT, Height/Length Dosing, 150, kg, 12/31/22 3:07:00 EDT, Weight Dosing ?? Orders: Zithromax 500 mg oral tablet, 500 mg = 1 tab, Oral, Daily, # 5 tab, 0 Refill(s), Pharmacy: [id number], 149, cm, 12/31/22 3:07:00 EDT, Height/Length Dosing, 150, kg, 12/31/22 3:07:00 EDT, Weight Dosing cefpodoxime 200 mg oral tablet, 200 mg = 1 tab, Oral, every 12 hr, # 20 tab, 0 Refill(s), Pharmacy:[id number], 149, cm, 12/31/22 3:07:00 EDT, Height/Length Dosing, 150, kg, 12/31/22 3:07:00 EDT, Weight Dosing Discharge Activity Restrictions, No Restrictions Discharge Diet Instruction, Consistent Carbohydrate [id number] paz, Diabetic Diet Discharge Patient, 01/02/23 15:30:00 EDT, Home Independently Discharge Patient Instructions, May return to work 01/08/2023. Follow-up specialty visits at [facility] with pulmonology/endocrinology/GI as scheduled 01/04/2023 and [facility] cardiology as scheduled 02/04/2023. Discuss nighttime oxygen with pulmonology while using BiPAP. Discharge Weight, 01/02/23 15:30:00 EDT, Daily, Notify provider if weight gain of 3 pounds in 1 dayor 5 pounds in 1 week All Diagnoses This Visit Acute hypoxemic respiratory failure Pneumonia Type 1 diabetes HTN (hypertension) HLD (hyperlipidemia) Morbid obesity HOLLIE treated with BiPAP Thyroid nodule Mediastinal adenopathy Pulmonary hypertension Hypothyroidism Yeast infection Patient Instructions Call your primary care provider for: Temperature greater than 101F. Pain that does not go away. Persistent nausea, vomiting or constipation. Shortness of breath, with or without chest discomfort. Patient Education Hyperglycemia, Supw-sh-Isey Community-Acquired Pneumonia, Adult, [id number] Follow Up With When Contact Information Jasmeet Clark Jr, MD 02/15/2023 02:00 AM EDT [facility] [place] [address]- [phone] Additional Instructions: ??[facility] PULMONOLOGY- TELE HEALTH VISIT Jamila Archer MD 01/16/2023 03:20 AM EDT [facility] [place] [address]- Additional Instructions: HOSPITAL FOLLOW UP Charlie Godinez MD 01/05/2023 09:00 AM EDT [address] [place] [id number]- Additional Instructions: [facility] appointment [facility] 01/04/2023 02:00 AM EDT [address] [address]- Additional Instructions: [facility]??ENDOCRINOLOGY- In person visit Medication Reconciliation New Prescription azithromycin (Zithromax 500 mg oral tablet)1 tab Oral (given by mouth) every day for 5 Days. Refills: 0. ?? cefpodoxime (cefpodoxime 200 mg oral tablet)1 tab Oral (given by mouth) every 12 hours for 10 Days.Refills: 0. ?? Changed dulaglutide (Trulicity Pen 0.75 mg/0.5 mL subcutaneous solution)0.5 Milliliters Subcutaneous (underthe skin) every week. rotate injection sites. ?? levothyroxine (levothyroxine 100 mcg (0.1 mg) oral tablet)1 tab Oral (given by mouth) every day. Take one tablet by mouth with water a half hour before eating or taking any other medication. Take with 125 mcg dose.. Refills: 3. ?? levothyroxine (levothyroxine 125 mcg (0.125 mg) oral tablet)1 tab Oral (given by mouth) every day. Take one tablet by mouth with water a half hour before eating or taking any other medication. Take with 100 mcg dose.. Refills: 3. ?? Unchanged ascorbic acid (Vitamin C 500 mg oral tablet)1 tab Oral (given by mouth) every day. Refills: 0. ?? atorvastatin (atorvastatin 40 mg oral tablet)1 tab Oral (given by mouth) every day. ?? cetirizine-pseudoephedrine (ZyrTEC-D 5 mg-120 mg oral tablet, extended release)1 tab Oral (given bymouth) every 24 hours. Refills: 0. ?? Durable Medical Equipment for Prescription (B-D UF III SHORT PEN NEED MIS)Use one new pen needle for each insulin injection 5 to 7 times per day as directed in case of pump malfunction. Refills: 0. ?? Durable Medical Equipment for Prescription (Dexcom G6 sensors)To check BS 4x daily. Refills: 0. ?? Durable Medical Equipment for Prescription (FUTURO COMPRESSION SOCKS)FUTURO COMPRESSION SOCKS. Refills: 0. ?? Durable Medical Equipment for Prescription (FUTURO COMPRESSION SOCKS)rt leg: length 45cm, calf 52cm, ankle 30cm lt leg: length 45cm, calf 53cm, ankle 30cm. Refills: 0. ?? ergocalciferol (ergocalciferol 1.25 mg (50,000 intl units) oral capsule)1 Capsules Oral (given by mouth) every week. ?? fluconazole (Diflucan 150 mg oral tablet)1 tab Oral (given by mouth) once. Can repeat in 3 days if symptoms persist. Refills: 0. ?? glucagon (Glucagon Emergency Kit for Low Blood Sugar)follow instructions per kit; as needed low blood sugar. ?? insulin regular (HumuLIN R KwikPen (Concentrated) 500 units/mL subcutaneous solution)200 Units Intradermal (in the skin) before meals. correction facter of 50 units. ?? lisinopril (lisinopril 10 mg oral tablet)1 tab Oral (given by mouth) every day. for 90 days- dose change 10/20/2021. Refills: 3. ?? multivitamin (multivitamin adult, oral tablet)1 tab Oral (given by mouth) every day. Refills: 0. ?? Other Prescription (ONETOUCH VERIO FLEX KIT)1 each by [facility] (non drug: combo route) route 4 times daily.. ?? Other Prescription (ONETOUCH VERIO MARLENE)Test blood glucose withone new test strip 4 times daily. ?? torsemide (torsemide 20 mg oral tablet)1 tab Oral (given by mouth) 3 times a day as needed IF NEEDED. Refills: 1. ?? triamcinolone topical (triamcinolone 0.1% topical cream)1 Application Topical (on the skin) 2 timesa day for 10 Days. Refills: 0. ?? Discontinued cephalexin (cephalexin 500 mg oral capsule)TAKE 1 CAPSULE BY MOUTH 4 TIMES DAILY. ?? fenofibrate (fenofibrate 30 mg oral capsule)1 Capsules Oral (given by mouth) every day. Refills: 3. ?? fenofibrate (fenofibrate 40 mg oral tablet)1 tab Oral (given by mouth) every day. Refills: 0. Electronically Signed on 01/02/23 03:50 PM Leonard Altamirano MD Patient Care team information Care Team Personnel Name: Jamila Archer MD Position: Physician Member Role: Informed Provider Address: Address: [place] [facility] [address] Name: Shila Krueger Position: Ambulatory - RN/CALCINER FEEDER ([facility]) Member Role: Membership Counselor Name: Judy Lynch RN Position: Nurse Member Role: ED Nurse Name: Nikki Wilson MD Position: Physician Member Role: ED Physician Address: Address: [address] Care Team Related Persons Name: EMILIO PAHTAK Address: Home [address] [place], [phone] Name: ELLIS GRAMAJO Address: Home [address] [place], [phone]
--- OUTSIDE RECORDS SUMMARY | 2024-02-29 19:09 | XMS_ITS | Continuity of Care Document ---
Author Name Unknown Organization [facility] Address [address] [place] [address] Care Team Providers Care Medical Anthropologist Name Role Phone Jamila Archer Primary Care Physician Encounter [facility] Date(s): 05/30/23 - 05/30/23 [facility] [address] [place] [address] Discharge Disposition: Home or Self Care Attending Physician: Jaida Lamb NP Admitting Physician: Jaida Lamb NP Referring Physician: Jaida Lamb FLOOR CARE TECHNICIAN Allergies, Adverse Reactions, Alerts Substance Reaction Severity [...] instructions, # 500 EA, 0 Refill(s), Pharmacy: [facility] [id number] Start Date: 09/08/22 Status: Ordered cetirizine 10 mg oral tablet See Instructions, Take 1 tablet by mouth twice daily, # 60 tab, 0 Refill(s), Pharmacy: [facility] [address], 149, cm, 03/22/23 10:48:00 EDT, Height/Length Dosing, 129.7, kg, 03/22/23 10:48:00 EDT, Weight Dosing Start Date: 05/30/23 Status: Ordered chlorthalidone 25 mg oral tablet 1 tab, Oral, Daily, # 90 tab, 0 Refill(s), Pharmacy: [facility] [address], 149, cm, 03/22/23 10:48:00 EDT, Height/Length Dosing, 129.7, kg, 03/22/23 10:48:00 EDT, Weight Dosing Start Date: 05/15/23 Status: Ordered Ciprodex 0.3%-0.1% otic suspension 4 drops, Ear-Both, BID, # 7.5 mL, 0 Refill(s), Pharmacy: [facility] [address], 149, cm, 03/22/23 10:48:00 EDT, Height/Length Dosing, 129.7, kg, 03/22/23 10:48:00 EDT, Weight Dosing Start Date: 05/22/23 Stop Date: 05/29/23 Status: Ordered Dexcom G6 sensors Dexcom G6 sensors, To check BS 4x daily, Supply, See instructions, # 6 EA, 0 Refill(s), Pharmacy: [facility] Start Date: 11/24/22 Status: Ordered Dexcom Sensors G6, change every 10 days Dexcom Sensors G6, change every 10 days, Use for BS monitoring, Supply, See instructions, # 4 EA, 3Refill(s), Pharmacy: [facility] Start Date: 01/16/23 Status: Ordered Dexcom Transmitter, change every 3 months Dexcom Transmitter, change every 3 months, Use to monitor BS, Supply, See instructions, # 1 EA, 3 Refill(s), Pharmacy: [facility] Start Date: 04/11/23 Status: Ordered Diflucan 150 mg oral tablet 150 mg = 1 tab, Oral, Once, repeat in 72 hours if no improvement, # 2 tab, 0 Refill(s), Pharmacy: [facility] [address], 149, cm, 03/22/23 10:48:00 EDT, Height/Length Dosing, 129.7, kg, 03/22/23 10:48:00 EDT, Weight Dosing Start Date: 05/10/23 Status: Ordered ergocalciferol 1.25 mg (50,000 intl units) oral capsule 50,000 IntlUnit = 1 cap, Oral, every week Start Date: 03/02/22 Status: Ordered Glucagon Emergency Kit for Low Blood Sugar See Instructions, PRN low blood sugar, follow instructions per kit, 0 Refill(s) Start Date: 03/24/22 Status: Ordered HumuLIN R KwikPen (Concentrated) 500 units/mL subcutaneous solution 200 units =, Intradermal, AC, correction facter of 50 units Start Date: 03/02/22 Status: Ordered levothyroxine 125 mcg (0.125 mg) oral tablet 125 mcg = 1 tab, Oral, Daily, Take one tablet by mouth with water a half hour before eating or taking any other medication. Take with 100 mcg dose., # 90 tab, 3 Refill(s), Pharmacy: [facility] [address], 150, cm, 10/27/22 6:33:00 EST, Height/Length Dosing, 127, kg, 10/27/22 6:33:00 EST, Weight Dosing Start Date: 10/27/22 Status: Ordered lisinopril 5 mg oral tablet 5 mg = 1 tab, Oral, Daily, # 90 tab, 2 Refill(s), Pharmacy: [facility] [address], 149, cm, 03/22/23 10:48:00 EDT, Height/Length Dosing, 129.7, kg, 03/22/23 10:48:00 EDT, Weight Dosing Start Date: 05/01/23 Status: Ordered ONETOUCH VERIO FLEX KIT ONETOUCH VERIO FLEX KIT, 1 each by [facility] [place] [place]. (non drug: combo route) route 4 times daily. Start Date: 03/02/22 Status: Ordered ONETOUCH VERIO MARLENE ONETOUCH VERIO MARLENE, Test blood glucose withone new test strip 4 times daily Start Date: 03/02/22 Status: Ordered senna (sennosides) 3 mg oral tablet, chewable 3 mg = 1 tab, Chewed, BID, PRN as needed for constipation, # 180 tab, 1 Refill(s), Pharmacy: [id number], 149, cm, 03/22/23 10:48:00 EDT, Height/Length Dosing, 129.7, kg, 03/22/23 10:48:00 EDT, Weight Dosing Start Date: 05/01/23 Status: Ordered torsemide 20 mg oral tablet 60 mg = 3 tab, Oral, BID, take 3 tablets to equal 60mg twice daily, # 180 tab, 4 Refill(s), Pharmacy: [facility], 149, cm, 12/31/22 3:07:00 EDT, Height/Length Dosing, 150, kg, 12/31/22 3:07:00 EDT, Weight Dosing Start Date: 02/28/23 Status: Ordered Vitamin C 500 mg oral tablet 500 mg = 1 tab, Oral, Daily, # 30 tab, 0 Refill(s), other reason (Rx) Start Date: 03/24/22 Status: Ordered Problem List Condition Confirmation Course Effective Dates Status H ealth Status Informant Adult health examination Confirmed Active Autoimmune thyroiditis Confirmed Active Bilateral lower extremity edema Confirmed Active Constipation Confirmed Active Developmental disorder Confirmed Active Diabetic [...] Active HOLLIE treated with BiPAP Confirmed Active Otitis externa of both ears Confirmed Active Right otitis media with effusion Confirmed Active Palpitations Confirmed Active Hospital discharge follow-up Confirmed Active Pulmonary hypertension Confirmed Active Severe [...] 4with adenoidectomy Results Laboratory List Name Date Automated Diff 05/30/23 CBC w/ Diff 05/30/23 Comprehensive Metabolic Panel (CMP) 05/30 Most recent to oldest [Reference Range]: 1 WBC [5.0-10.0 x10^3/mcL] 10.7 x10^3/mcL *HI* (05/30/23 4:59 PM) RBC [4.1-5.3 x10^6/mcL] 4.5 x10^6/mcL (05/30/23 4:59 PM) Neutro Auto [40.0-75.0 %] 54.8 % (05/30/23 4:59 PM) Lymph Auto [20.0-50.0 %] 37.1 % (05/30/23 4:59 PM) [place] Auto [2.0-15.0 %] 4.1 % (05/30/23 4:59 PM) Basophil Auto [0.0-1.0 %] 0.4 % (05/30/23 4:59 PM) BUN [7-18 mg/dL] 46 mg/dL *HI* (05/30/23 4:59 PM) Glucose Level [74-106 mg/dL] 253 mg/dL *HI* (05/30/23 4:59 PM) Potassium Level [3.5-5.1 mmol/L] 3.5 mmo l/L (05/30/23 4:59 PM) MCV [80.0-96.0 fL] 89.4 fL (05/30/23 4:59 PM) AST [15-37 unit/L] 134 unit/L *HI* (05/30/23 4:59 PM) ALT [14-59 unit/L] 204 unit/L *HI* (05/30/23 4:59 PM) MCHC [31.0-35.0 g/dL] 33.3 g/dL (05/30/23 4:59 PM) Sodium Level [136-145 mmol/L] 134 mmol/L *LOW* (05/30/23 4:59 PM) Hct [37.0-47.0 %] 40.6 % (05/30/23 4:59 PM) Calcium Level [8.5-10.1 mg/dL] 10.1 mg/d L (05/30/23 4:59 PM) Albumin Level [3.4-5.0 g/dL] 3.9 g/dL (05/30/23 4:59 PM) Protein Total [6.4-8.2 g/dL] 8.5 g/dL *HI* (05/30/23 4:59 PM) MCH [26.0-32.0 pg] 29.7 pg (05/30/23 4:59 PM) Neutro Absolute 5.8 x10^3/mcL *NA* (05/30/23 4:59 PM) Bilirubin Total [0.2-1.0 mg/dL] 0.5 mg/d L (05/30/23 4:59 PM) Hgb [12.0-16.0 g/dL] 13.5 g/dL (05/30/23 4:59 PM) Alk Phos [46-146 unit/L] 289 unit/L *HI* (05/30/23 4:59 PM) Platelets [130-450 x10^3/mcL] 272 x10^3/ mcL (05/30/23 4:59 PM) CO2 [21-32 mmol/L] 32 mmol/L (05/30/23 4:59 PM) eGFR Non-AA [>=60] 75 (05/30/23 4:59 PM) eGFR AA [>=60] 75 (05/30/23 4:59 PM) Chloride Level [98-107 mmol/L] 91 mmol/L *LOW* (05/30/23 4:59 PM) RDW-CV [11.5-14.5 %] 16.6 % *HI* (05/30/23 4:59 PM) Imm Gran Auto [0.0-0.9 %] 0.2 % (05/30/23 4:59 PM) Creatinine Level [0.55-1.02 mg/dL] 1.05 mg/dL *HI* (05/30/23 4:59 PM) Eos, Auto [1.0-6.0 %] 3.4 % (05/30/23 4:59 PM) Social History Social History Type Response Tobacco Never tobacco user T obacco Use:. Sex Female Patient Care team information Care Team Personnel Name: Jamila Archer MD Position: Physician Member Role: Informed Provider Address: Address: [place] [address]- [place] Name: Shila Krueger Position: Ambulatory - RN/CAN DRYER ([facility]) Member Role: Calculation Clerk Care Team Related Persons Name: EMILIO PATHAK Address: Home [address] [facility] [phone] Name: ELLIS GRAMAJO Address: Home [address] [place], [phone]
--- OUTSIDE RECORDS SUMMARY | 2024-02-29 19:09 | XMS_ITS | Continuity of Care Document ---
Author Name Unknown Organization [facility] Address [address] [place] [address] Care Team Providers Care Group Supervisor Yard Name Role Phone Jamila Archer Primary Care Physician [phone] Encounter [facility] Date(s): 11/03/22 - 11/03/[address] [address] Encounter Diagnosis Secondary amenorrhea(Discharge Diagnosis) - 11/03/22 Discharge Disposition: Home or Self Care Attending [...] instructions, # 500 EA, 0 Refill(s), Pharmacy: [facility] Start Date: 09/08/22 Status: Ordered ergocalciferol 1.25 mg (50,000 intl units) oral capsule 50,000 IntlUnit = 1 cap, Oral, every week Start Date: 03/02/22 Status: Ordered fenofibrate 30 mg oral capsule 30 mg = 1 cap, Oral, Daily, # 90 cap, 3 Refill(s), Pharmacy: [facility], 150, cm, 10/27/22 6:33:00 EST, Height/Length Dosing, 127, kg, 10/27/22 6:33:00 EST, Weight Dosing Start Date: 10/27/22 Status: Ordered fenofibrate 40 mg oral tablet 40 mg = 1 tab, Oral, Daily, # 30 tab, 0 Refill(s), Pharmacy: [facility], 150, cm, 10/27/22 6:33:00 EST, Height/Length Dosing, [...] dose., # 90 tab, 3 Refill(s), Pharmacy: [facility], 150, cm, 10/27/22 6:33:00 EST, Height/Length D... Start Date: 10/27/22 Status: Ordered levothyroxine 125 mcg (0.125 mg) oral tablet 125 mcg = 1 tab, Oral, Daily, Take one tablet by mouth with water a half hour before eating or taking any other medication. Take with 100 mcg dose., # 90 tab, 3 Refill(s), Pharmacy: [id number], 150, cm, 10/27/22 6:33:00 EST, Height/Length D... Start Date: 10/27/22 Status: Ordered lisinopril 10 mg oral tablet 10 mg = 1 tab, Oral, Daily, for 90 days- dose change 10/20/2021, # 90 tab, 3 Refill(s), Pharmacy: [facility], 150, cm, 08/09/22 1:15:00 EST, Height/Length Dosing, 127.01, kg, 08/09/22 1:15:00 EST, Weight Dosing Start Date: 10/05/22 Status: Ordered multivitamin adult, oral tablet 1 tab, Oral, Daily, # 90 tab, 0 Refill(s), other reason (Rx) Start Date: 03/24/22 Status: Ordered ONETOUCH VERIO FLEX KIT ONETOUCH VERIO FLEX KIT, 1 each by [facility]. (non drug: combo route) route 4 times daily. Start Date: 03/02/22 Status: Ordered ONETOUCH VERIO MARLENE ONETOUCH VERIO MARLENE, Test blood glucose withone new test strip 4 times daily Start Date: 03/02/22 Status: Ordered torsemide 20 mg oral tablet 1 tab, Oral, TID, PRN IF NEEDED, # 90 tab, 1 Refill(s), Pharmacy: [id number], 150, cm, 08/09/22 [...] hr, # 30 tab, 0 Refill(s), Pharmacy: [facility], 150, cm, 226:18:00 EDT, Height/Length [...] 2as part of tonsillectomy 2003; repeat adenoidectomy 2014 3with adenoidectomy Social History Social History Type Response Tobacco Never tobacco user T obacco Use:. Sex Female Patient Care team information Care Team Personnel Name: Jamila Archer MD Position: Physician Member Role: Informed Provider Address: Address: [facility] [place], [place] [id number] [place] [address] Name: Shila Krueger Position: Ambulatory - RN/SUSTAINABLE DESIGN CONSULTANT ([facility]) Member Role: Precision Grinder Care Team Related Persons Name: EMILIO PATHAK Address: Home [address] [facility] [phone] Name: ELLIS GRAMAJO Address: Home [address] [place], [phone]
--- OUTSIDE RECORDS SUMMARY | 2024-02-29 19:09 | XMS_ITS | Continuity of Care Document ---
Author Name Unknown Organization [facility] Address [address] [place] [address] Care Team Providers Care Executive Administrative Assistant Name Role Phone Jamila Archer Primary Care Physician Encounter [facility] Date(s): 05/29/23 - 05/29/23 [facility] [address] [place] [address] Discharge Disposition: Home Allergies, Adverse Reactions, Alerts [...] instructions, # 500 EA, 0 Refill(s), Pharmacy: [facility] [address] Start Date: 09/08/22 Status: Ordered cetirizine 10 mg oral tablet See Instructions, Take 1 tablet by mouth once daily, # 90 tab, 3 Refill(s), Pharmacy: [facility] [address], 149, cm, 03/22/23 10:48:00 EDT, Height/Length Dosing, 129.7, kg, 03/22/23 10:48:00 EDT, Weight Dosing Start Date: 03/28/23 Status: Ordered chlorthalidone 25 mg oral tablet 1 tab, Oral, Daily, # 90 tab, 0 Refill(s), Pharmacy: [facility] [address], 149, cm, 03/22/23 10:48:00 EDT, Height/Length Dosing, 129.7, kg, 03/22/23 10:48:00 EDT, Weight Dosing Start Date: 05/15/23 Status: Ordered Ciprodex 0.3%-0.1% otic suspension 4 drops, Ear-Both, BID, # 7.5 mL, 0 Refill(s), Pharmacy: [facility] [address], 149, cm, 03/22/23 10:48:00 EDT, Height/Length Dosing, 129.7, kg, 03/22/23 10:48:00 EDT, Weight Dosing Start Date: 05/22/23 Stop Date: 05/29/23 Status: Ordered Dexcom G6 sensors Dexcom G6 sensors, To check BS 4x daily, Supply, See instructions, # 6 EA, 0 Refill(s), Pharmacy: [facility] [address] Start Date: 11/24/22 Status: Ordered Dexcom Sensors G6, change every 10 days Dexcom Sensors G6, change every 10 days, Use for BS monitoring, Supply, See instructions, # 4 EA, 3Refill(s), Pharmacy: [facility] [address] Start Date: 01/16/23 Status: Ordered Dexcom Transmitter, change every 3 months Dexcom Transmitter, change every 3 months, Use to monitor BS, Supply, See instructions, # 1 EA, 3 Refill(s), Pharmacy: [facility] Start Date: 04/11/23 Status: Ordered Diflucan 150 mg oral tablet 150 mg = 1 tab, Oral, Once, repeat in 72 hours if no improvement, # 2 tab, 0 Refill(s), Pharmacy: [facility] [address], 149, cm, 03/22/23 10:48:00 EDT, Height/Length Dosing, [...] dose., # 90 tab, 3 Refill(s), Pharmacy: [facility] [address], 150, cm, 10/27/22 6:33:00 EST, Height/Length Dosing, 127, kg, 10/27/22 6:33:00 EST, Weight Dosing Start Date: 10/27/22 Status: Ordered lisinopril 5 mg oral tablet 5 mg = 1 tab, Oral, Daily, # 90 tab, 2 Refill(s), Pharmacy: [facility] [address], 149, cm, 03/22/23 10:48:00 EDT, Height/Length Dosing, 129.7, kg, 03/22/23 10:48:00 EDT, Weight Dosing Start Date: 05/01/23 Status: Ordered ONETOUCH VERIO FLEX KIT ONETOUCH VERIO FLEX KIT, 1 each by [facility]. (non drug: combo route) route 4 times daily. Start Date: 03/02/22 Status: Ordered ONETOUCH VERIO MARLENE ONETOUCH VERIO MARLENE, Test blood glucose withone new test strip 4 times daily Start Date: 03/02/22 Status: Ordered senna (sennosides) 3 mg oral tablet, chewable 3 mg = 1 tab, Chewed, BID, PRN as needed for constipation, # 180 tab, 1 Refill(s), Pharmacy: [facility], 149, cm, 03/22/23 10:48:00 EDT, Height/Length Dosing, 129.7, kg, 03/22/23 10:48:00 EDT, Weight Dosing Start Date: 05/01/23 Status: Ordered torsemide 20 mg oral tablet 60 mg = 3 tab, Oral, BID, take 3 tablets to equal 60mg twice daily, # 180 tab, 4 Refill(s), Pharmacy: [facility], 149, cm, 12/31/22 3:07:00 [...] Physician Member Role: Informed Provider Address: Address: [facility] [place] [address]- [place] Name: Shila Krueger Position: Ambulatory - RN/CNA GNA ([facility]) Member Role: Target Protection Specialist Care Team Related Persons Name: EMILIO PATHAK Address: Home [address] [facility] [phone] Name: ELLIS GRAMAJO Address: Home [address] [place], [phone]
--- OUTSIDE RECORDS SUMMARY | 2024-02-29 19:09 | XMS_ITS | Continuity of Care Document ---
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[employer] Allergies, Adverse Reactions, Alerts Substance Reaction Severity Status morphine Unknown Active rOPINIRole Severe Active Assessment and Plan Future Appointments Future Scheduled Tests Laboratory* Basic Metabolic Panel 01/10/23 * Basic Metabolic Panel 02/20/23 * SARS-CoV-2 (COVID-19)/Flu/RSV (GeneXpert) 08/21/22 Functional Status 02/20/23 Other exposure to Infectious Disease Non e [...] instructions, # 500 EA, 0 Refill(s), Pharmacy: [facility] [id number] Start Date: 09/08/22 Status: Ordered chlorthalidone 25 mg oral tablet 25 mg = 1 tab, Oral, Daily, # 90 tab, 0 Refill(s), Pharmacy: [facility] [id number], 149, cm, 12/31/22 3:07:00 EDT, Height/Length Dosing, 150, kg, 12/31/22 3:07:00 EDT, Weight Dosing Start Date: 02/20/23 Status: Ordered Dexcom G6 sensors Dexcom G6 sensors, To check BS 4x daily, Supply, See instructions, # 6 EA, 0 Refill(s), Pharmacy: [facility] [id number] Start Date: 11/24/22 Status: Ordered Dexcom Sensors G6, change every 10 days Dexcom Sensors G6, change every 10 days, Use for BS monitoring, Supply, See instructions, # 4 EA, 3Refill(s), Pharmacy: [facility] [id number] Start Date: 01/16/23 Status: Ordered Dexcom Transmitter, change every 3 months Dexcom Transmitter, change every 3 months, Use to monitor BS, Supply, See instructions, # 1 EA, 3 Refill(s), Pharmacy: [facility] [id number] Start Date: 01/16/23 Status: Ordered Diflucan 150 mg oral tablet 150 mg = 1 tab, Oral, Once, Can repeat in 3 days if symptoms persist, # 2 tab, 0 Refill(s), Pharmacy: [facility] [id number], 149, cm, 12/31/22 3:07:00 EDT, Height/Length Dosing, [...] Refill(s), Pharmacy: [id number] Start Date: 12/18/22 Status: Ordered Glucagon Emergency [...] dose., # 90 tab, 3 Refill(s), Pharmacy: [id number], 150, cm, 10/27/22 6:33:00 EST, Height/Length D... Start Date: 10/27/22 Status: Ordered levothyroxine 125 mcg (0.125 mg) oral tablet 125 mcg = 1 tab, Oral, Daily, Take one tablet by mouth with water a half hour before eating or taking any other medication. Take with 100 mcg dose., # 90 tab, 3 Refill(s), Pharmacy: [id number], 150, cm, 10/27/22 6:33:00 EST, Height/Length D... Start Date: 10/27/22 Status: Ordered lisinopril 10 mg oral tablet 10 mg = 1 tab, Oral, Daily, for 90 days- dose change 10/20/2021, # 90 tab, 3 Refill(s), Pharmacy: [id number], 150, cm, 08/09/22 1:15:00 EST, Height/Length Dosing, 127.01, kg, 08/09/22 1:15:00 EST, Weight Dosing Start Date: 10/05/22 Status: Ordered multivitamin adult, oral tablet 1 tab, Oral, Daily, # 90 tab, 0 Refill(s), other reason (Rx) Start Date: 03/24/22 Status: Ordered ONETOUCH VERIO FLEX KIT ONETOUCH VERIO FLEX KIT, 1 each by [facility]. (non drug: combo route) route 4 times daily. Start Date: 03/02/22 Status: Ordered ONETOUCH VERIO MARLENE ONETOUCH VERIO MARLENE, Test blood glucose withone new test strip 4 times daily Start Date: 03/02/22 Status: Ordered Tessalon Perles 100 mg oral capsule 200 mg = 2 cap, Oral, TID, PRN as needed for cough, do not crush or chew, # 84 cap, 0 Refill(s), Pharmacy: [id number], 149, cm, 12/31/22 3:07:00 EDT, Height/Length Dosing, 150, kg, 12/31/22 3:07:00 EDT, Weight Dosing Start Date: 01/02/23 Stop Date: 01/16/23 Status: Ordered torsemide 20 mg oral tablet 40 mg = 2 tab, Oral, BID, PRN IF NEEDED, take 2 tablets to equal 40mg TWICE daily, # 120 tab, 3 Refill(s), Pharmacy: [id number], 149, cm, 12/31/22 3:07:00 EDT, Height/Length Dosing, 150, kg, 12/31/22 3:07:00 EDT, Weight Dosing Start Date: 02/07/23 Status: Ordered triamcinolone 0.1% topical cream 1 [place], Topical, BID, # 60 g, 0 Refill(s), Pharmacy: [id number], 150, cm, 11/18/22 19:16:00 [...] hr, # 30 tab, 0 Refill(s), Pharmacy: [id number], 150, cm, 226:18:00 EDT, [...] Active HOLLIE treated with BiPAP Confirmed Active Hospital discharge follow-up Confirmed Active [...] Range]: 1 Peripheral Pulse Rate [60-100 bpm] 93 bp m (02/20/23 8:24 AM) Blood Pressure [90-140/60-90 mmHg] 126/7 1mmHg (02/20/23 8:24 AM) Weight 135.2 kg (02/20/23 8:24 AM) Weight Measured (lbs) 298.065 lb (02/20/23 8:24 AM) Social History Social History Type Response Tobacco Never tobacco user T obacco Use:. 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 Edema 2. Diabetes Mellitus 3. Obesity 4. Obstructive Sleep Apnea with BiPAP 5. Tachycardia 6. Mild aortic stenosis, with mean gradient of 9 on echocardiogram November 2022 7. Pulmonary hypertension, with RV systolic pressure of 45 on echocardiogram November 2022, likely attributable to obstructive sleep apnea. ? This is a 27-year-old lady that I last saw in clinic a month ago for edema. Her echocardiogram was reassuring while she was admitted in the hospital for pneumonia. At her last visit with me we discussed decreasing her fluid intake and exercising more to help with the edema. I also encouraged the use of the compression stockings she obtained the week prior to her visit with me. She is currently taking 60mg of Torsemide BID. She was last seen on January 16 with her PCP she stated edema and breathingwere improved but she had stopped the use of her compression stockings. ?? She is here today as follow up. She states that she has been doing very well since the last time I saw her a month ago. She has started a new diet; Octivia, and this has all of her food sent to her, and includes a diet and exercise/life trainer that she works very closely with. She has lost 10 poundssince her last visit and states she she has felt a lot better since losing the weight. She states that she did weight??295 last week and that she was weighed with clothes on here.??She has noticed reduced chest discomfort, and increased breathing comfort. She denies palpitations, syncope, chest pain, shortness of breath, PND, orthopnea. She does report still having some bilateral peripheral edema. She states this has improved, that people are commenting how improved her legs look. She agrees that she thinks they have reduced but still with noticeable edema daily. ?? She is walking every afternoon,??4 laps around [employer] which takes her 15 minutes, and then every other day she does 10 minutes of evette at home. 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 She denies shortness of breath, syncope or pain while exercising. She does report mild 1/10 chest soreness when she starts to exercise, lasts 2 minutes, no radiation, no nausea, no sweatiness. She was getting a little lightheaded when starting exercise, but finds it is relieved by drinking water.??She denies palpitations but says she can feel her heart beating faster with exercise. Her shortness of breath only occurs when she is walking up stairs but she states this has greatly reduced since losing weight as well. She monitors her O2 on her apple watch, she is 95% today and that is what she normally is at home. ?? She states she tried cutting down fluids but it didn't work, she felt lightheaded when restricting fluids. She has a 32oz water bottle in the office today that she is drinking out of throughout the appointment. She drinks about 60oz a day she feels of caffeinated water. She takes 60mg of torsemide at 8am and 60mg of torsemide at 3pm. She urinates within 30 minutes, and then every hour for 4-5 hours, no nocturia. ?? Blood work was ordered for her last month after increasing torsemide, she did not have this donebecause of scheduling and losing track of time. Review of Systems A complete review of systems is negative other than as noted in the history of present illness. Physical Exam Vitals & Measurements HR:??93??(Peripheral)?? BP:??126/71?? SpO2:??95%?? WT:??135.2??kg?? HEENT: Normocephalic, atraumatic Respirations: Clear to auscultation bilaterally with no wheezes rubs or rhonchi Cardiac: Regular rate and rhythm, normal S1, S2, no murmurs gallops or rubs Abdomen: Nontender nondistended normal active bowel sounds Extremities: 2+ dorsalis pedis pulses bilaterally with??1+ edema Medical Decision Making Data Review: 01/15/2023: Office visit with primary:?? no edema noted on exam. Documented that Torsemide was 40mgBID, but??can increase to 60mg BID. 01/20/2023: EKG: Sinus rhythm at 92bpm. No signs of infarction or ischemia. Borderline prolonged QTinterval at QTcB at 482, QT at 389. Normal axis and intervals. ?? 28-year-old lady who is doing well. ?? Edema: Her edema??has improved but is still present, more significantly on her left??lower extremity.??Her weight last visit was 309 pounds, today she is reduced to 293 pounds. Adding chlorthalidone may offer increased effectiveness for the peripheral edema she is still experiencing. I discussed that this is also used for hypertension and to monitor her blood pressure at home. I went over taking readings a couple times a week and that I would be interested to see the averages of these readings.She did not get blood work after starting torsemide so I rescheduled this so she can get this done.It sounds like she is doing well overall. ?? I will see her again in 2 months to see how she has done with the chlorthalidone. She knows to call and be sooner with any concerns. ?? Clinic Assessment/Plan HTN (hypertension)??I10 Actions: ORDERED - chlorthalidone, 25 mg = 1 tab, Oral, Daily, # 90 tab, 0 Refill(s), Pharmacy: [id number], 149, cm, 12/31/22 3:07:00 EDT, Height/Length Dosing, 150, kg, 12/31/22 3:07:00 EDT, Weight Dosing COMPLETED - [address] Office/Outpatient Visit - Established Patient, Level 4 (30-39 min)., 02/20/23 8:20:00 EDT, HTN (hypertension) FUTURE - Basic Metabolic Panel, Blood, Routine, 02/20/23, Once, Lab Collect, HTN (hypertension), [facility], 02/20/23 8:24:00 EDT, Routine, Reason: Other (please specify), Stop dateand time 02/20/23 8:24:00 EDT, HTN (hypertension), ORD_SET_REQ_DT_RANGE, Cheri's Internal Person Id COMPLETED - Follow-Up Appointment Request CRYSTAL, 02/20/23 8:20:00 EDT, In Approximately, [facility], 02/20/23 8:20:00 EDT FUTURE - Follow-Up Appointment Request CRYSTAL, *Est. 05/01/23 +/- 14 days, Future Order, In Approximately, [facility] ?? Problem List/Past Medical History Ongoing Adult health examination Autoimmune thyroiditis Bilateral lower extremity edema Developmental disorder Diabetic ketoacidosis Erythroderma HLD (hyperlipidemia) Hospital discharge follow-up HTN (hypertension) Hyperlipidemia Hypertensive disorder Idiopathic sleep related non-obstructive alveolar hypoventilation Intermenstrual bleeding - irregular Irregular sleep-wake pattern Kidney disease Localized edema Mediastinal adenopathy Morbid obesity Obesity Obstructive sleep apnea syndrome HOLLIE treated with BiPAP Pulmonary hypertension Severe obesity Tachycardia Tension-type headache Thyroid nodule Type 1 diabetes Historical No qualifying data Procedure/Surgical History ???Due 10/2025 (10/31/2022)???ORIF - Open reduction and internal fixation of fracture (12/22/2020)???Adenoidectomy (09/10/2013)???Tonsillectomy (09/10/2003) Medications What How Much When Why Instructions New chlorthalidone (chlorthalidone 25 mg oral tablet) 1 tab Oral (given by mouth) Every day HTN (hypertension) Pickup at [id number] Unchanged ascorbic acid (Vitamin C 500 mg oral tablet) 1 tab Oral (given by mouth) Every day Unchanged atorvastatin (atorvastatin 40 mg oral tablet) 1 tab Oral (given by mouth) Every day Unchanged benzonatate (Tessalon Perles 100 mg oral capsule) 2 Capsules Oral (given by mouth) 3 times a day as needed for as needed for cough Duration: 14 Days do not crush or chew ?? Unchanged cetirizine-pseudoephedrine (ZyrTEC-D 5 mg-120 mg oral tablet, extended release) 1 tab Oral (given by mouth) Every 24 hours Ear infection Unchanged dulaglutide (Trulicity Pen 0.75 mg/ 0.5 mL subcutaneous solution) 0.5 Milliliters Subcutaneous (under the skin) Every week rotate injection sites ?? Unchanged Durable Medical Equipment for Prescription [...] instructions Use to monitor BS ?? Unchanged Durable Medical Equipment for Prescription (FUTURO COMPRESSION SOCKS) See instructions rt leg: length 45cm, calf 52cm, ankle 30cm ?? lt leg: length 45cm, calf 53cm, ankle 30cm ?? Unchanged Durable Medical Equipment for Prescription (FUTURO COMPRESSION SOCKS) See instructions Stasis dermatitis of both legs Bilateral lower extremity edema FUTURO COMPRESSION SOCKS ?? Unchanged ergocalciferol (ergocalciferol 1.25 mg (50,000 intl units) oral capsule) 1 Capsules Oral (given by mouth) Every week Unchanged fluconazole (Diflucan 150 mg oral tablet) 1 tab Oral (given by mouth) Once Yeast infection Can repeat in 3 days if symptoms persist ?? Unchanged glucagon (Glucagon Emergency Kit for Low Blood Sugar) See instructions hypoglycemia symptoms follow instructions per kit, As needed for low blood sugar ?? Unchanged insulin regular (HumuLIN R KwikPen (Concentrated) 500 units/ mL subcutaneous solution) 200 Units Intradermal (in the skin) Before meals correction facter of 50 units ?? Unchanged levothyroxine (levothyroxine 100 mcg (0.1 mg) oral tablet) 1 tab Oral (given by mouth) Every day Hypothyroidism Take one tablet by mouth with water a half hour before eating or taking any other medication. Take with 125 mcg dose. ?? Unchanged levothyroxine (levothyroxine 125 mcg (0.125 mg) oral tablet) 1 tab Oral (given by mouth) Every day Hypothyroidism Take one tablet by mouth with water a half hour before eating or taking any other medication. Take with 100 mcg dose. ?? Unchanged lisinopril (lisinopril 10 mg oral tablet) 1 tab Oral (given by mouth) Every day for 90 days- dose change 2021 ?? Unchanged multivitamin (multivitamin adult, oral tablet) 1 tab Oral (given by mouth) Every day Unchanged Other Prescription (ONETOUCH VERIO FLEX KIT) 1 each by [facility] [place] (non drug: combo route) route 4 times daily. ?? Unchanged Other Prescription (ONETOUCH VERIO MARLENE) Test blood glucose withone new test strip 4 times daily ?? Unchanged torsemide (torsemide 20 mg oral tablet) 2 tab Oral (given by mouth) 2 times a day as needed for IF NEEDED Edema, peripheral take 2 tablets to equal 40mg TWICE daily ?? Unchanged triamcinolone topical (triamcinolone 0.1% topical cream) 1 Application Topical (on the skin) 2 times a day Stasis dermatitis of both legs Bilateral lower extremity edema Duration: 10 Days Pharmacy Information [id number]: [address] [place] [address] [phone] Allergies rOPINIRole morphine Social History Alcohol Current, [...] pediatric vaccine 1995 Recorded Electronically Signed on 02/20/23 09:17 AM Jaida Lamb NP Patient Care team information Care Team Personnel Name: Jamila Archer MD Position: Physician Member Role: Informed Provider Address: Address: [facility] [place], [place] [address] Name: Shila Krueger Position: Ambulatory - RN/PULMONARY NURSE PRACTITIONER ([facility]) Member Role: Landscaping Manager Care Team Related Persons Name: EMILIO PATHAK Address: [address] [id number] Name: ELLIS GRAMAJO Address: Home [address] [place], [id number]
--- OUTSIDE RECORDS SUMMARY | 2024-02-29 19:09 | XMS_ITS | Continuity of Care Document ---
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) - Discharge Disposition: Home or Self Care Attending Physician: Wilbur Harry MD Admitting Physician: Wilbur Harry MD Allergies, Adverse Reactions, Alerts Substance Reaction Severity Status morphine Unknown Active Assessment and Plan Future Appointments Future Scheduled Tests Laboratory* SARS-CoV-2 (COVID-19)/Flu/RSV ([facility]) 08/21/22 Functional Status 10/26/22 Other exposure to Infectious Disease Non e [...] adult/adol 1 03/23/20 Recorded influenza, unspecified formulation 11/29/16 Record ed influenza virus vaccine, inactivated 06/30/15 [...] Recorded 1Result Comment: pt tolerated well Medications amoxicillin-clavulanate 875 mg-125 mg oral tablet amoxicillin (as trihydrate) 1 tab, Oral, every 12 hr, # 14 tab, 0 Refill(s), Pharmacy: [facility] [id number], 150, cm, 03/14/22 6:18:00 EDT, Height/Length Dosing, 129, kg, 03/14/22 6:18:00 EDT, Weight Dosing Start Date: 03/14/22 Stop Date: 03/21/22 Status: Ordered atorvastatin 40 mg oral tablet [...] instructions, # 500 EA, 0 Refill(s), Pharmacy: [facility] [id number] Start Date: 09/08/22 Status: Ordered clotrimazole 1% topical cream 1 trenton, Topical, BID, # 300 g, 0 Refill(s), Pharmacy: [facility] [id number], 150, cm, 08/09/22 1:15:00 EST, Height/Length Dosing, 127.01, kg, 08/09/22 1:15:00 EST, Weight Dosing Start Date: 08/22/22 Status: Ordered Diflucan 150 mg oral tablet 150 mg = 1 tab, Oral, Once, May repeat second tab in 2 days if needed., # 2 tab, 0 Refill(s), Pharmacy: [facility] [id number], 150, cm, 03/14/22 6:18:00 EDT, Height/Length Dosing, 129, kg, 03/14/22 6:18:00 EDT, Weight Dosing Start Date: 03/21/22 Status: Ordered ergocalciferol 1.25 mg (50,000 intl units) oral capsule 50,000 IntlUnit = 1 cap, Oral, every week Start Date: 03/02/22 Status: Ordered Euthyrox 200 mcg (0.2 mg) oral tablet 200 mcg = 1 tab, Oral, Daily, # 90 tab, 0 Refill(s), Pharmacy: [id number], 150, cm, 03/14/22 6:18:00 EDT, Height/Length Dosing, 129, kg, 03/14/22 6:18:00 EDT, Weight Dosing Start Date: 07/03/22 Status: Ordered Euthyrox 25 mcg (0.025 mg) oral tablet See Instructions, Take 1 tablet by mouth once daily. Take one 25 MCG tablet with one 200 MCG tabletfor a total daily dose of 225 MCG Start Date: 03/02/22 Status: Ordered Glucagon Emergency Kit for Low Blood Sugar See Instructions, PRN low blood sugar, follow instructions per kit, 0 Refill(s) Start Date: 03/24/22 Status: Ordered HumuLIN R KwikPen (Concentrated) 500 units/mL subcutaneous solution 200 units =, Intradermal, AC, correction facter of 50 units Start Date: 03/02/22 Status: Ordered levothyroxine 200 mcg (0.2 mg) oral tablet 30 EA, TAKE 1 TABLET BY MOUTH ONCE DAILY. TAKE ONE 200 MCG TABLET WITH ONE 25 MCG TABLET FOR A TOTAL DOSE OF 225 MCG., 0 Refill(s) Start Date: 08/22/22 Status: Ordered lisinopril 10 mg oral tablet 10 mg = 1 tab, Oral, Daily, for 90 days- dose change 10/20/2021, # 90 tab, 3 Refill(s), Pharmacy: [id number], 150, cm, 08/09/22 1:15:00 EST, Height/Length Dosing, 127.01, kg, 08/09/22 1:15:00 EST, Weight Dosing Start Date: 10/05/22 Status: Ordered multivitamin adult, oral tablet 1 tab, Oral, Daily, # 90 tab, 0 Refill(s), other reason (Rx) Start Date: 03/24/22 Status: Ordered ONETOUCH VERIO FLEX KIT ONETOUCH VERIO FLEX KIT, 1 each by [facility]. (non drug: combo route) route 4 times daily. Start Date: 03/02/22 Status: Ordered ONETOUCH VERIO MARLENE ONETOUCH VERIO MARLENE, Test blood glucose withone new test strip 4 times daily Start Date: 03/02/22 Status: Ordered Silvadene 1% topical cream 1 trenton, Topical, Daily, # 50 g, 0 Refill(s), Pharmacy: [facility], 149.86, cm, 07/29/22 17:57:00 EST, Height/Length Dosing, 127.07, kg, 07/29/22 17:57:00 EST, Weight Dosing Start Date: 07/29/22 Status: Ordered torsemide 20 mg oral tablet 1 tab, Oral, TID, PRN IF NEEDED, # 90 tab, 1 Refill(s), Pharmacy: [facility], 150, cm, 08/09/22 1:15:00 EST, Height/Length Dosing, 127.01, kg, 08/09/22 1:15:00 EST, Weight Dosing Start Date: 09/04/22 Status: Ordered Trulicity Pen 1.5 mg/0.5 mL subcutaneous solution every week Start Date: 03/02/22 Status: Ordered Vitamin C 500 mg oral tablet 500 mg = 1 tab, Oral, Daily, # 30 tab, 0 Refill(s), other reason (Rx) Start Date: 03/24/22 Status: Ordered ZyrTEC 10 mg oral tablet 10 mg = 1 tab, Oral, Daily, # 90 tab, 3 Refill(s), Pharmacy: [facility], 150, cm, 03/14/22 6:18:00 EDT, Height/Length Dosing, 129, kg, 03/14/22 6:18:00 EDT, Weight Dosing Start Date: 04/19/22 Status: Ordered ZyrTEC-D 5 mg-120 mg oral tablet, extended release 1 tab, Oral, every 24 hr, # 30 tab, 0 Refill(s), Pharmacy: [facility], 150, cm, 226:18:00 EDT, [...] Results Laboratory List Name Date Glucose POCT 10/26/22 Glucose POCT 10/26/22 Blood Gas Venous 10/26/22 CBC w/ Diff 10/26/22 Comprehensive Metabolic Panel 10/26/22 D-Dimer 10/26/22 Hemoglobin A1c 10/26/22 Automated Diff 10/26/22 Most recent to oldest [Reference Range]: 1 2 WBC [5.0-10.0 x10^3/mcL] 8.4 x10^3/mcL (10/26/22 10:37 AM) RBC [4.1-5.3 x10^6/mcL] 4.6 x10^6/mcL (10/26/22 10:37 AM) Neutro Auto [40.0-75.0 %] 61.0 % (10/26/22 10:37 AM) Lymph Auto [20.0-50.0 %] 32.3 % (10/26/22 10:37 AM) [place] Auto [2.0-15.0 %] 3.4 % (10/26/22 10:37 AM) Basophil Auto [0.0-1.0 %] 0.5 % (10/26/22 10:37 AM) BUN [7-18 mg/dL] 32 mg/dL *HI* (10/26/22 10:37 AM) Glucose POC [74-106 mg/dL] 132 mg/dL *HI* (10/26/22 12:27 PM) 84 mg/dL (10/26/22 11:21 AM) Glucose Level [74-106 mg/dL] 55 mg/dL *LOW* (10/26/22 10:37 AM) Potassium Level [3.5-5.1 mmol/L] 3.9 mmo l/L (10/26/22 10:37 AM) MCV [80.0-96.0] 93.0 (10/26/22 10:37 AM) CO2 Total Venous 34 mmol/L *NA* (10/26/22 10:37 AM) HCO3 Venous [22-30 mmol/L] 33 mmol/L *HI* (10/26/22 10:37 AM) AST [15-37 unit/L] 132 unit/L *HI* (10/26/22 10:37 AM) ALT [14-59 unit/L] 143 unit/L *HI* (10/26/22 10:37 AM) MCHC [31.0-35.0 g/dL] 32.2 g/dL (10/26/22 10:37 AM) Sodium Level [136-145 mmol/L] 138 mmol/L (10/26/22 10:37 AM) Hct [37.0-47.0 %] 42.8 % (10/26/22 10:37 AM) Calcium Level [8.5-10.1 mg/dL] 9.5 mg/dL (10/26/22 10:37 AM) Albumin Level [3.4-5.0 g/dL] 4.1 g/dL (10/26/22 10:37 AM) Protein Total [6.4-8.2 g/dL] 8.7 g/dL *HI* (10/26/22 10:37 AM) MCH [26.0-32.0 pg] 30.0 pg (10/26/22 10:37 AM) Neutro Absolute 5.1 x10^3/mcL *NA* (10/26/22 10:37 AM) Bilirubin Total [0.2-1.0 mg/dL] 0.4 mg/d L (10/26/22 10:37 AM) Hgb [12.0-16.0 g/dL] 13.8 g/dL (10/26/22 10:37 AM) Alk Phos [46-146 unit/L] 301 unit/L *HI* (10/26/22 10:37 AM) pCO2 Mirza [33-47 mmHg] 55 mmHg *HI* (10/26/22 10:37 AM) Platelets [130-450 x10^3/mcL] 355 x10^3/ mcL (10/26/22 10:37 AM) CO2 [21-32 mmol/L] 30 mmol/L (10/26/22 10:37 AM) pO2 Mirza 21 mmHg *NA* (10/26/22 10:37 AM) pH Mirza [7.32-7.43 pH unit(s)] 7.38 pH un it(s) (10/26/22 10:37 AM) O2 Sat Mirza 33 % *NA* (10/26/22 10:37 AM) eGFR Non-AA [>=60] 77 (10/26/22 10:37 AM) eGFR AA [>=60] 77 (10/26/22 10:37 AM) Base Excess Venous 5.9 mmol/L *NA* (10/26/22 10:37 AM) Hemoglobin A1c [4.0-6.0 %] 9.2 % *HI* (10/26/22 10:37 AM) Chloride Level [98-107 mmol/L] 95 mmol/L *LOW* (10/26/22 10:37 AM) RDW-CV [11.7-17.0 %] 14.6 % (10/26/22 10:37 AM) Imm Gran Auto [0.0-0.9 %] 0.4 % (10/26/22 10:37 AM) Creatinine Level [0.55-1.02 mg/dL] 1.03 mg/dL *HI* (10/26/22 10:37 AM) D Dimer, (Quant.) [0.00-0.50 mg/L] 0.19 mg/L (10/26/22 10:37 AM) Eos, Auto [1.0-6.0 %] 2.4 % (10/26/22 10:37 AM) Vital Signs Most recent to oldest [Reference Range]: 1 2 3 Temperature Temporal Artery [36-38 Deg C] 35.8 Deg C *LOW* (10/26/22 9:37 AM) Peripheral Pulse Rate [60-100 bpm] 110 bpm *HI* (10/26/22 12:26 PM) 98 bpm (10/26/22 11:24 AM) 101 bpm *HI* (10/26/22 11:12 AM) Heart Rate Monitored [60-100 bpm] 109 bpm *HI* (10/26/22 12:26 PM) 96 bpm (10/26/22 11:24 AM) 97 bpm (10/26/22 11:12 AM) Respiratory Rate [12-24 br/min] 21 br/min (10/26/22 12:26 PM) 17 br/min (10/26/22 11:24 AM) 25 br/min *HI* (10/26/22 11:12 AM) Blood Pressure [90-140/60-90 mmHg] 130/92mmHg (10/26/22 11:24 AM) 96/74mmHg (10/26/22 11:07 AM) 106/89mmHg (10/26/22 10:54 AM) Weight Dosing 130.00 kg (10/26/22 9:47 AM) Weight Estimated 130.00 kg (10/26/22 9:37 AM) Height/Length Dosing 149.000 cm (10/26/22 9:47 AM) Height/Length Estimated 149.000 cm (10/26/22 9:37 AM) Social History Social History Type Response Tobacco Never tobacco user T obacco Use:. Sex Female Hospital Discharge Instructions Patient Education 10/26/2022 11:35:12 Hypoglycemia, [id number] Hypoglycemia Hypoglycemia is when the sugar (glucose) level in your blood is too low. Low blood sugar can happento people who have diabetes and people who do not have diabetes. Low blood sugar can happen quickly, and it can be an emergency. What are the causes? This condition happens most often in people who have diabetes. It may be caused by: ??? Diabetes medicine. ??? Not eating enough, or not eating often enough. ??? Doing more physical activity. ??? Drinking alcohol on an empty stomach. If you do not have diabetes, this condition may be caused by: ??? A tumor in the pancreas. ??? Not eating enough, or not eating for long periods at a time (fasting). ??? A very bad infection or illness. ??? Problems after having weight loss (bariatric) surgery. ??? Kidney failure or liver failure. ??? Certain medicines. What increases the risk? This condition is more likely to develop in people who: ??? Have diabetes and take medicines to lower their blood sugar. ??? Abuse alcohol. ??? Have a very bad illness. What are the signs or symptoms? Mild ??? Hunger. ??? Sweating and feeling clammy. ??? Feeling dizzy or light-headed. ??? Being sleepy or having trouble sleeping. ??? Feeling like you may vomit (nauseous). ??? A fast heartbeat. ??? A headache. ??? Blurry vision. ??? Mood changes, such as: ??? Being grouchy. ??? Feeling worried or nervous (anxious). ??? Tingling or loss of feeling (numbness) around your mouth, lips, or tongue. Moderate ??? Confusion and poor judgment. ??? Behavior changes. ??? Weakness. ??? Uneven heartbeat. ??? Trouble with moving (coordination). Very low Very low blood sugar (severe hypoglycemia) is a medical emergency. It can cause: ??? Fainting. ??? Seizures. ??? Loss of consciousness (coma). ??? . How is this treated? Treating low blood sugar Low blood sugar is often treated by eating or drinking something that has sugar in it right away. The food or drink should contain 15 grams of a fast-acting carb (carbohydrate). Options include: ??? 4 oz (120 mL) of fruit juice. ??? 4 oz (120 mL) of regular soda (not diet soda). ??? A few pieces of hard candy. Check food labels to see how many pieces to eat for 15 grams. ??? 1 Tbsp (15 mL) of sugar or honey. ??? 4 glucose tablets. ??? 1 tube of glucose gel. Treating low blood sugar if you have diabetes If you can think clearly and swallow safely, follow the 15:15 rule: ??? Take 15 grams of a fast-acting carb. Talk with your doctor about how much you should take. ??? Always keep a source of fast-acting carb with you, such as: ??? Glucose tablets (take 4 tablets). ??? A few pieces of hard candy. Check food labels to see how many pieces to eat for 15 grams. ??? 4 oz (120 mL) of fruit juice. ??? 4 oz (120 mL) of regular soda (not diet soda). ??? 1 Tbsp (15 mL) of honey or sugar. ??? 1 tube of glucose gel. ??? Check your blood sugar 15 minutes after you take the carb. ??? If your blood sugar is still at or below 70 mg/dL (3.9 mmol/L), take 15 grams of a carb again. ??? If your blood sugar does not go above 70 mg/dL (3.9 mmol/L) after 3 tries, get help right away. ??? After your blood sugar goes back to normal, eat a meal or a snack within 1 hour. Treating very low blood sugar If your blood sugar is below 54 mg/dL (3 mmol/L), you have very low blood sugar, or severe hypoglycemia. This is an emergency. Get medical help right away. If you have very low blood sugar and you cannot eat or drink, you will need to be given a hormone called glucagon. A family member or friend should learn how to check your blood sugar and how to giveyou glucagon. Ask your doctor if you need to have an emergency glucagon kit at home. Very low blood sugar may also need to be treated in a hospital. Follow these instructions at home: General instructions ??? Take [id number] and prescription medicines only as told by your doctor. ??? Stay aware of your blood sugar as told by your doctor. ??? If you drink alcohol: ??? Limit how much you have to: ??? 0???1 drink a day for women who are not . ??? 0???2 drinks a day for men. ??? Know how much alcohol is in your drink. In the [place] one drink equals one 12 oz bottle of beer (355 mL), one 5 oz glass of wine (148 mL), or one 1?? oz glass of hard liquor (44 mL). ??? Be sure to eat food when you drink alcohol. ??? Know that your body absorbs alcohol quickly. This may lead to low blood sugar later. Be sure tokeep checking your blood sugar. ??? Keep all follow-up visits. If you have diabetes: ??? Always have a fast-acting carb (15 grams) with you to treat low blood sugar. ??? Follow your diabetes care plan as told by your doctor. Make sure you: ??? Know the symptoms of low blood sugar. ??? Check your blood sugar as often as told. Always check it before and after exercise. ??? Always check your blood sugar before you drive. ??? Take your medicines as told. ??? Follow your meal plan. ??? Eat on time. Do not skip meals. ??? Share your diabetes care plan with: ??? Your work or school. ??? People you live with. ??? Carry a card or wear jewelry that says you have diabetes. Where to find more information ??? [place] [employer]: www.diabetes.org Contact a doctor if: ??? You have trouble keeping your blood sugar in your target range. ??? You have low blood sugar often. Get help right away if: ??? You still have symptoms after you eat or drink something that contains 15 grams of fast-acting carb, and you cannot get your blood sugar above 70 mg/dL by following the 15:15 rule. ??? Your blood sugar is below 54 mg/dL (3 mmol/L). ??? You have a seizure. ??? You faint. These symptoms may be an emergency. Get help right away. Call your local emergency services ([address] [place] [address].S.). ??? Do not wait to see if the symptoms will go away. ??? Do not drive yourself to the hospital. Summary ??? Hypoglycemia happens when the level of sugar (glucose) in your blood is too low. ??? Low blood sugar can happen to people who have diabetes and people who do not have diabetes. Lowblood sugar can happen quickly, and it can be an emergency. ??? Make sure you know the symptoms of low blood sugar and know how to treat it. ??? Always keep a source of sugar (fast-acting carb) with you to treat low blood sugar. This information is not intended to replace advice given to you by your health care provider. Make sure you discuss any questions you have with your health care provider. Document Revised: 07/28/2021 Document Reviewed: 07/28/2021 Elsevier Patient Education ?? 2021 [employer] Follow Up Care 10/26/2022 09:37:45 With:assembler arranger Address: When:1 month agronomy location manager Note * Caitlin León: PERFORM Event Display: Case Management Note Authored Date: [id number] Pt presented to ER this morning after Dhara's grandmother found pt minimally responsive. Pt seen yesterday in Er with CPAP issue - [facility] did see pt and her machine yesterday - found to have a clogged filter which was changed. Pt provided with additional filters and instructed to change monthly. Contacted Melanie @ the sleep Center - pt was scheduled to be seen today at 1:10 in the office via Zoom to see/speak to Sully in [facility] office. Both pt and mother are agreeable to plan of care. Physician Emergency department Note * Wilbur Harry MD: PERFORM, MODIFY Event Display: ED Note Physician Authored Date: [id number] DHARA MIRAMONTES :1995 Age:27 years Sex:Female Visit Date:10/26/2022 Primary Care Physician: Jamila Archer MD Basic Information Time Seen: Wilbur Harry MD / 10/26/2022 09:50 Chief Complaint Pt grandmother called EMS after trying to wake pt up and finding pt minimally responsive. In triage pt states I really feel fine guys. EMS reports ??BS was 70, which pt states is good for me. Pt states if she would have given me a min. I would have History Of Present Illness: 27-year-old female brought in by EMS because she was difficult to wake up this morning.?? I see thepatient she is feeling back to normal has no complaints. ??Her glucose was reportedly 70??which shestates is good for her and??usually she would not pass out at a glucose of 70.?? She is known for sleep apnea, her CPAP machine had been working well??by report,??she was here yesterday with a similar issue,??she did go to [facility] and they??arranged for the CPAP to be working,??it was cleaned.?? 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 Denies abdominal pain.?? She does state that she has been somewhat out of breath??in the last few weeks. ??No chest pain or significant cough or??abdominal pain vomiting or diarrhea.?? No reported headache or chest pain.?? She is followed by endocrinology for her diabetes at [facility] also. Review of Systems: Constitutional:??no??fever,? Skin:??no??Jaundice,??no??rash,??no??lesions,??no??petechiae ENMT:??no??ear pain,??no??sore throat,??no??congestion,??no??hoarseness Respiratory:??Some occasional shortness of breath??no??cough,??no??orthopnea,??no??wheezing Cardiovascular:??no??chest pain,??no??palpitations,??no??edema Gastrointestinal:??no??nausea,??no??vomiting,??no??diarrhea,??no abdominal pain Genitourinary:??No complaints of voiced Musculoskeletal:??no??back pain,??no??trauma Neurologic:??no??headache,??no??dizziness,??see HPI, ?? Physical Exam Vitals & Measurements T:??35.8?C ??(Temporal Artery)?? HR:??110??(Peripheral)?? HR:??109??(Monitored)?? RR:??21?? BP:??130/92?? SpO2:??97%?? HT:??149.000??cm?? WT:??130.00??kg??(Estimated)?? O2 Therapy:??Room air?? General:??alert,??no acute distress.?? Normal mentation here, she is not encephalopathic,??face is??plethoric, has a history of erythroderma,??does not look septic no respiratory distress,??morbid obesity noted. Skin:??warm,??dry. Head:??no??trauma,??normocephalic. Neck:??trachea??midline,? Eye:??normal??conjunctiva, sclera??clear. Cardiovascular:??regular??rate and rhythm,??normal??peripheral perfusion. Respiratory: lungs??CTA, respirations??non-labored.?? Perhaps decreased breath sounds due to body habitus but no other adventitious??lung sounds heard. Chest wall:??no??deformity. Gastrointestinal:??soft,?? ,??no??tenderness,??no??guarding.?? Obese abdomen is not tender on palpation. Extremities:??no??deformity,??no??trauma.?? No signs of DVT. Neurological:??oriented??x 4, LOC??appropriate for age,?speech??normal. Psychiatric:??cooperative, affect??appropriate for age,?? Medical Decision Making: Medical Decision-Making: Clinical lab tests: ordered and reviewed -??Yes Tests in the radiology section of CPT??: ordered and reviewed -??Yes ?? Decide to obtain previous medical records or to obtain history from someone other than the patient:-??Yes,?? Obtain history from someone other than the patient -??Yes, collection systems administrator Review and summarize past medical records -??Yes Discuss the patient with other providers -??Yes, we reached out to sleep medicine and I??reached out to endocrinology at [facility] awaiting a callback. Independent visualization of images, tracings, or specimens? Yes, chest x-ray ?? Differential diagnosis includes hypoglycemic spells in the morning,??hypoventilation syndrome, sleep apnea,??narcolepsy,??she is not hypoxic here.?? Here the patient had a glucose of 55 at the lab which is on the low side, she ate??and had some orange juice and it was rechecked at 84.?? I reviewed??records from Eufemia Reyes her PA with [place] and allergy at [facility]. ??Last note was??last March.?? Patient is taking Trulicity that was increased to 3.0, today her hemoglobin A1c is 9.2.?? She otherwise takes regular insulin with meals and??was taken 50 at bedtime which was decreased by??her??endocrinology provider??to 40 units and eventually she was to take 30 of her a.m.??glucoses less than 70. ??She tells me she took 20 last night.?? So reached out to the sleep clinic, patient will be ableto be evaluated by Sully Mani via Zoom??at the sleep clinic at 1 this afternoon.?? She is stable and awake with no signs of sepsis??or acute coronary syndrome. ??D-dimer was negative and chest x-ray is unremarkable so I do not think she has a PE or pneumonia??or CHF.?? Patient wanted to sleep here with??CPAP for us to observe her sleeping pattern,??I told her that we will try to coordinate this through the sleep clinic. ??She was??seen by [facility] yesterday to adjust the??CPAP.?? She remained hemodynamically stable here. ?? Poke with Eufemia Reyes her PA of endocrinology at [facility]. ??She recommends decreasing the bedtime dose of regular insulin also.?? And offered to see her sooner than her scheduled appointment in December.?? Patient discharged in stable condition, prior to discharge her glucose was 130.?? Patient will go to the sleep clinic. ??Discharged in stable condition. ?? She does not have a Dexcom glucometer, she states the insurance would not cover it. ?? Procedure No Qualifying Data Assessment/Plan 1.??Hypoglycemia??E16.2 2.??Sleep apnea??G47.30 Patient Education Hypoglycemia, [id number] Follow Up With When Contact Information assembler arranger Within 1 month Additional Instructions: Medication Reconciliation Unchanged amoxicillin-clavulanate (amoxicillin-clavulanate 875 mg-125 [...] Prescription (ONETOUCH VERIO FLEX KIT)1 each by [facility]. (non drug: combo route) route 4 times daily.. ?? Other Prescription (ONETOUCH VERIO MARLENE)Test blood glucose withone new test strip 4 times daily. ?? rOPINIRole (rOPINIRole 1 mg oral tablet)take 1 PO two hours before bedtime. Refills: 1. ?? silver sulfADIAZINE topical (Silvadene 1% topical [...] fracture (12/22/2020)???Adenoidectomy (09/10/2013)???Tonsillectomy (09/10/2003) Medication Administration Given HumuLIN R, 80 units, Subcutaneous Allergies morphine Social History Alcohol Current, 1-2 times per month Electronic Cigarette/Vaping Electronic Cigarette Use: Never. 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 Home/Environment Lives with grandparents. Living situation: Home/Independent. Nutrition/Health Diet: Diabetic. Caffeine intake amount: 250mg tea a day. Substance Use Never Tobacco Never tobacco user Tobacco Use:. Family History Diabetes mellitus: Other. Insomnia: Mother. Restless legs syndrome: Grandfather (M). Sleep apnea: Mother, Father and Grandfather (P). Lab Results Blood Gases?? LATEST RESULTS?? pH Mirza?? 10/26/22 10:37?? 7.38?? pCO2 Mirza?? 10/26/22 10:37?? 55 ??High?? pO2 Mirza?? 10/26/22 10:37?? 21?? HCO3 Venous?? 10/26/22 10:37?? 33 ??High?? O2 Sat Mirza?? 10/26/22 10:37?? 33?? CO2 Total Venous?? 10/26/22 10:37?? 34?? Base Excess Venous?? 10/26/22 10:37?? 5.9? CBC and Differential?? LATEST RESULTS?? HISTORICAL RESULTS?? WBC?? 10/26/22 10:37?? 8.4?? 08/09/22?? 9.8?? RBC?? 10/26/22 10:37?? 4.6?? 08/09/22?? 4.6?? Hgb?? 10/26/22 10:37?? 13.8?? 08/09/22?? 13.4?? Hct?? 10/26/22 10:37?? 42.8?? 08/09/22?? 41.9?? MCV?? 10/26/22 10:37?? 93.0?? 08/09/22?? 92.1?? MCH?? 10/26/22 10:37?? 30.0?? 08/09/22?? 29.5?? MCHC?? 10/26/22 10:37?? 32.2?? 08/09/22?? 32.0?? RDW-CV?? 10/26/22 10:37?? 14.6?? 08/09/22?? 14.7?? Platelets?? 10/26/22 10:37?? 355?? 08/09/22?? 303?? Neutro Auto?? 10/26/22 10:37?? 61.0?? 08/09/22?? 58.0?? Lymph Auto?? 10/26/22 10:37?? 32.3?? 08/09/22?? 33.6?? [place] Auto?? 10/26/22 10:37?? 3.4?? 08/09/22?? 4.3?? Eos, Auto?? 10/26/22 10:37?? 2.4?? 08/09/22?? 3.4?? Basophil Auto?? 10/26/22 10:37?? 0.5?? 08/09/22?? 0.5?? Imm Gran Auto?? 10/26/22 10:37?? 0.4?? 08/09/22?? 0.2?? Neutro Absolute?? 10/26/22 10:37?? 5.1?? 08/09/22?? 5.7? Coagulation?? LATEST RESULTS?? D Dimer, (Quant.)?? 10/26/22 10:37?? 0.19? Routine Chemistry?? LATEST RESULTS?? HISTORICAL RESULTS?? Sodium Level?? 10/26/22 10:37?? 138?? 08/09/22?? 138?? Potassium Level?? 10/26/22 10:37?? 3.9?? 08/09/22?? 4.6?? Chloride Level?? 10/26/22 10:37?? 95 ??Low?? 08/09/22?? 97 ??Low?? CO2?? 10/26/22 10:37?? 30?? 08/09/22?? 31?? Alk Phos?? 10/26/22 10:37?? 301 ??High?? 08/09/22?? 312 ??High?? AST?? 10/26/22 10:37?? 132 ??High?? 08/09/22?? 171 ??High?? ALT?? 10/26/22 10:37?? 143 ??High?? 08/09/22?? 148 ??High?? BUN?? 10/26/22 10:37?? 32 ??High?? 08/09/22?? 46 ??High?? Glucose Level?? 10/26/22 10:37?? 55 ??Low?? 08/09/22?? 107 ??High?? Creatinine Level?? 10/26/22 10:37?? 1.03 ??High?? 08/09/22?? 1.80 ??High?? eGFR AA?? 10/26/22 10:37?? 77?? 08/09/22?? 40 ??Low?? eGFR Non-AA?? 10/26/22 10:37?? 77?? 08/09/22?? 40 ??Low?? Calcium Level?? 10/26/22 10:37?? 9.5?? 08/09/22?? 9.9?? Protein Total?? 10/26/22 10:37?? 8.7 ??High?? 08/09/22?? 8.9 ??High?? Albumin Level?? 10/26/22 10:37?? 4.1?? 08/09/22?? 4.2?? Bilirubin Total?? 10/26/22 10:37?? 0.4?? 08/09/22?? 0.5?? Hemoglobin A1c?? 10/26/22 10:37?? 9.2 ??High? Glucose POC?? 10/26/22 12:27?? 132 ??High?? 10/25/22?? 225 ??High? Electronically Signed on 10/26/22 12:37 PM Wilbur Harry MD Electronically Signed on 10/26/22 12:38 PM Wilbur Harry MD Emergency department Discharge instructions * Wilbur Harry MD: PERFORM Event Display: ED Discharge Information Authored Date: [id number] DHARA MIRAMONTES :1995 Age:27 years Sex:Female Visit Date:10/26/2022 Primary Care Physician: Jamila Archer MD Discharge Instructions We would like to thank you for allowing us to assist you with your healthcare needs. The following includes patient education materials and information regarding your injury/illness. Diagnosis from Today's Visit Hypoglycemia Sleep apnea Discharge Vitals Temperature??(Temporal Artery) 96.4 ??F (35.8 ??C) Heart Rate??(Peripheral) 110 Heart Rate??(Monitored) 109 Respiratory Rate?? 21 Blood Pressure?? 130/92?? Height?? 58.66 in (149.000 cm) Weight??(Estimated) 286.65 lb (130.00 kg) Allergies morphine What to Do Next Instructions from Your Care Team Decrease your bedtime insulin to 10 units.?? Go to the sleep clinic where you will have a Zoom visit with your??sleep??provider.?? Monitor your glucose closely,??follow-up with your??assembler arranger in the next??couple weeks,??they said you could call down and they will give you a sooner appointment. You Need to Schedule the Following Appointments Follow Up with??assembler arranger When:??Within 1 month Upcoming Scheduled Appointments 2022 1:30 PM EST ?? Sunday 2:30 PM EST ?? You were treated today on an [...] (ONETOUCH VERIO FLEX KIT) 1 each by [facility] [place]. (non drug: combo route) route 4 times daily. ?? Unchanged Other Prescription (ONETOUCH VERIO MARLENE) Test blood glucose withone new test strip 4 times daily ?? Unchanged rOPINIRole (rOPINIRole 1 mg oral tablet) See instructions Obstructive sleep apnea syndrome Periodic limb movement take 1 PO two hours before bedtime ?? Unchanged silver sulfADIAZINE topical (Silvadene 1% topical cream) 1 Application Topical (on the skin) Every day Superficial burn of right hand Unchanged torsemide (torsemide 20 mg oral tablet) 1 tab Oral (given by mouth) 3 times a day as needed for IF NEEDED Education Materials Hypoglycemia Hypoglycemia is when the sugar (glucose) level in your blood is too low. Low blood sugar can happento people who have diabetes and people who do not have diabetes. Low blood sugar can happen quickly, and it can be an emergency. What are the causes? This condition happens most often in people who have diabetes. It may be caused by: ? Diabetes medicine. ? Not eating enough, or not eating often enough. ? Doing more physical activity. ? Drinking alcohol on an empty stomach. If you do not have diabetes, this condition may be caused by: ? A tumor in the pancreas. ? Not eating enough, or not eating for long periods at a time (fasting). ? A very bad infection or illness. ? Problems after having weight loss (bariatric) surgery. ? Kidney failure or liver failure. ? Certain medicines. What increases the risk? This condition is more likely to develop in people who: ? Have diabetes and take medicines to lower their blood sugar. ? Abuse alcohol. ? Have a very bad illness. What are the signs or symptoms? Mild ? Hunger. ? Sweating and feeling clammy. ? Feeling dizzy or light-headed. ? Being sleepy or having trouble sleeping. ? Feeling like you may vomit (nauseous). ? A fast heartbeat. ? A headache. ? Blurry vision. ? Mood changes, such as: ? Being grouchy. ? Feeling worried or nervous (anxious). ? Tingling or loss of feeling (numbness) around your mouth, lips, or tongue. Moderate ? Confusion and poor judgment. ? Behavior changes. ? Weakness. ? Uneven heartbeat. ? Trouble with moving (coordination). Very low Very low blood sugar (severe hypoglycemia) is a medical emergency. It can cause: ? Fainting. ? Seizures. ? Loss of consciousness (coma). ? . How is this treated? Treating low blood sugar Low blood sugar is often treated by eating or drinking something that has sugar in it right away. The food or drink should contain 15 grams of a fast-acting carb (carbohydrate). Options include: ? 4 oz (120 mL) of fruit juice. ? 4 oz (120 mL) of regular soda (not diet soda). ? A few pieces of hard candy. Check food labels to see how many pieces to eat for 15 grams. ? 1 Tbsp (15 mL) of sugar or honey. ? 4 glucose tablets. ? 1 tube of glucose gel. Treating low blood sugar if you have diabetes If you can think clearly and swallow safely, follow the 15:15 rule: ? Take 15 grams of a fast-acting carb. Talk with your doctor about how much you should take. ? Always keep a source of fast-acting carb with you, such as: ? Glucose tablets (take 4 tablets). ? A few pieces of hard candy. Check food labels to see how many pieces to eat for 15 grams. ? 4 oz (120 mL) of fruit juice. ? 4 oz (120 mL) of regular soda (not diet soda). ? 1 Tbsp (15 mL) of honey or sugar. ? 1 tube of glucose gel. ? Check your blood sugar 15 minutes after you take the carb. ? If your blood sugar is still at or below 70 mg/dL (3.9 mmol/L), take 15 grams of a carb again. ? If your blood sugar does not go above 70 mg/dL (3.9 mmol/L) after 3 tries, get help right away. ? After your blood sugar goes back to normal, eat a meal or a snack within 1 hour. Treating very low blood sugar If your blood sugar is below 54 mg/dL (3 mmol/L), you have very low blood sugar, or severe hypoglycemia. This is an emergency. Get medical help right away. If you have very low blood sugar and you cannot eat or drink, you will need to be given a hormone called glucagon. A family member or friend should learn how to check your blood sugar and how to giveyou glucagon. Ask your doctor if you need to have an emergency glucagon kit at home. Very low blood sugar may also need to be treated in a hospital. Follow these instructions at home: General instructions ? Take [id number] and prescription medicines only as told by your doctor. ? Stay aware of your blood sugar as told by your doctor. ? If you drink alcohol: ? Limit how much you have to: ? 0???1 drink a day for women who are not . ? 0???2 drinks a day for men. ? Know how much alcohol is in your drink. In the [place] one drink equals one 12 oz bottle of beer (355mL), one 5 oz glass of wine (148 mL), or one 1?? oz glass of hard liquor (44 mL). ? Be sure to eat food when you drink alcohol. ? Know that your body absorbs alcohol quickly. This may lead to low blood sugar later. Be sure to keep checking your blood sugar. ? Keep all follow-up visits. If you have diabetes: ? Always have a fast-acting carb (15 grams) with you to treat low blood sugar. ? Follow your diabetes care plan as told by your doctor. Make sure you: ? Know the symptoms of low blood sugar. ? Check your blood sugar as often as told. Always check it before and after exercise. ? Always check your blood sugar before you drive. ? Take your medicines as told. ? Follow your meal plan. ? Eat on time. Do not skip meals. ? Share your diabetes care plan with: ? Your work or school. ? People you live with. ? Carry a card or wear jewelry that says you have diabetes. Where to find more information ? [place] [employer]: www.diabetes.org Contact a doctor if: ? You have trouble keeping your blood sugar in your target range. ? You have low blood sugar often. Get help right away if: ? You still have symptoms after you eat or drink something that contains 15 grams of fast-acting carb, and you cannot get your blood sugar above 70 mg/dL by following the 15:15 rule. ? Your blood sugar is below 54 mg/dL (3 mmol/L). ? You have a seizure. ? You faint. These symptoms may be an emergency. Get help right away. Call your local emergency services (911 int [place] ? Do not wait to see if the symptoms will go away. ? Do not drive yourself to the hospital. Summary ? Hypoglycemia happens when the level of sugar (glucose) in your blood is too low. ? Low blood sugar can happen to people who have diabetes and people who do not have diabetes. Low blood sugar can happen quickly, and it can be an emergency. ? Make sure you know the symptoms of low blood sugar and know how to treat it. ? Always keep a source of sugar (fast-acting carb) with you to treat low blood sugar. This information is not intended to replace advice given to you by your health care provider. Make sure you discuss any questions you have with your health care provider. Document Revised: 07/28/2021 Document Reviewed: 07/28/2021 [email or web address] Patient Education ?? 2021 [employer] Tests Performed Medications and Immunizations Administered Given HumuLIN R, 80 units, Subcutaneous Lab Test Name Test Result Date/Time pH Mirza 7.38 pH unit(s) 10/26/2022 10:37 EST pCO2 Mirza 55 mmHg 10/26/2022 10:37 EST pO2 Mirza 21 mmHg 10/26/2022 10:37 EST HCO3 Venous 33 mmol/L 10/26/2022 10:37 EST O2 Sat Mirza 33 % 10/26/2022 10:37 EST CO2 Total Venous 34 mmol/L 10/26/2022 10:37 EST Base Excess Venous 5.9 mmol/L 10/26/2022 10:37 EST WBC 8.4 x10^3/mcL 10/26/2022 10:37 EST RBC 4.6 x10^6/mcL 10/26/2022 10:37 EST Hgb 13.8 g/dL 10/26/2022 10:37 EST Hct 42.8 % 10/26/2022 10:37 EST MCV 93.0 10/26/2022 10:37 EST MCH 30.0 pg 10/26/2022 10:37 EST MCHC 32.2 g/dL 10/26/2022 10:37 EST RDW-CV 14.6 % 10/26/2022 10:37 EST Platelets 355 x10^3/mcL 10/26/2022 10:37 EST Neutro Auto 61.0 % 10/26/2022 10:37 EST Lymph Auto 32.3 % 10/26/2022 10:37 EST [place] Auto 3.4 % 10/26/2022 10:37 EST Eos, Auto 2.4 % 10/26/2022 10:37 EST Basophil Auto 0.5 % 10/26/2022 10:37 EST Imm Gran Auto 0.4 % 10/26/2022 10:37 EST Neutro Absolute 5.1 x10^3/mcL 10/26/2022 10:37 EST D Dimer, (Quant.) 0.19 mg/L 10/26/2022 10:37 EST Sodium Level 138 mmol/L 10/26/2022 10:37 EST Potassium Level 3.9 mmol/L 10/26/2022 10:37 EST Chloride Level 95 mmol/L 10/26/2022 10:37 EST CO2 30 mmol/L 10/26/2022 10:37 EST Alk Phos 301 unit/L 10/26/2022 10:37 EST AST 132 unit/L 10/26/2022 10:37 EST ALT 143 unit/L 10/26/2022 10:37 EST BUN 32 mg/dL 10/26/2022 10:37 EST Glucose Level 55 mg/dL 10/26/2022 10:37 EST Creatinine Level 1.03 mg/dL 10/26/2022 10:37 EST eGFR AA 77 10/26/2022 10:37 EST eGFR Non-AA 77 10/26/2022 10:37 EST Calcium Level 9.5 mg/dL 10/26/2022 10:37 EST Protein Total 8.7 g/dL 10/26/2022 10:37 EST Albumin Level 4.1 g/dL 10/26/2022 10:37 EST Bilirubin Total 0.4 mg/dL 10/26/2022 10:37 EST Hemoglobin A1c 9.2 % 10/26/2022 10:37 EST Glucose POC 132 mg/dL 10/26/2022 12:27 EST Patient/Manager File Signature Patient Name:DHARA MIRAMONTES I have received this information and my questions have been answered. Patient/Manager File Name: Patient/Manager File Signature: Relationship to Patient: Witness Name/Signature: Date: Electronically Signed on: 10/26/2022 12:37 ESTSigned by:GRADY Emergency department Note * Ginette Day H: PERFORM Event Display: ED Notes Authored Date: Patient Care team information Care Team Personnel Name: Jamila Archer MD Position: Physician Member Role: Informed Provider Address: Address: [facility] [place], [place] [address] Name: Wilbur Harry MD Position: Physician Member Role: ED Physician Address: Address: [address] [place], [place] [address] Name: Madisyn Mendoza Position: Nurse Member Role: ED Nurse Care Team Related Persons Name: EMILIO PATHAK Address: Home [address] [facility] [address], [phone] Name: ELLIS GRAMAJO Address: Home [address] [facility] [facility], [phone]
--- OUTSIDE RECORDS SUMMARY | 2024-02-29 19:09 | XMS_ITS | Continuity of Care Document ---
Author Name Unknown Organization [facility] Address [address] [place] [address] Care Team Providers Care Mending Carrier Name Role Phone Jamila Archer Primary Care Physician Encounter [facility] Date(s): 07/29/22 - 07/29/[address] [id number] Encounter Diagnosis Superficial burn of right hand(Discharge Diagnosis) - 07/29/22 Discharge Disposition: Home or Self Care Attending Physician: Wilbur Harry MD Admitting Physician: Wilbur Harry MD Allergies, Adverse Reactions, Alerts Substance Reaction Severity Status morphine Unknown Active Assessment and Plan Future Appointments Immunizations Given and Recorded Vaccine Date Status Refusal Reason SARS-CoV-2 (COVID-19) mRNA-1273 vaccine 11/19/20 R ecorded [...] hr, # 14 tab, 0 Refill(s), Pharmacy: [id number], 150, cm, 03/14/22 6:18:00 EDT, Height/Length Dosing, 129, kg, 03/14/22 6:18:00 EDT, Weight Dosing Start Date: 03/14/22 Stop Date: 03/21/22 Status: Ordered atorvastatin 40 mg oral tablet 40 mg = 1 tab, Oral, Daily Start Date: 03/02/22 Status: Ordered Diflucan 150 mg oral tablet 150 mg = 1 tab, Oral, Once, May repeat second tab in 2 days if needed., # 2 tab, 0 Refill(s), Pharmacy: [id number], 150, cm, 03/14/22 6:18:00 EDT, Height/Length Dosing, 129, kg, 03/14/22 6:18:00 EDT, Weight Dosing Start Date: 03/21/22 Status: Ordered ergocalciferol 1.25 mg (50,000 intl units) oral capsule 50,000 IntlUnit = 1 cap, Oral, every week Start Date: 03/02/22 Status: Ordered Euthyrox 200 mcg (0.2 mg) oral tablet 200 mcg = 1 tab, Oral, Daily, # 90 tab, 0 Refill(s), Pharmacy: [id number], 150, cm, 03/14/22 6:18:00 [...] 50 units Start Date: 03/02/22 Status: Ordered lisinopril 10 mg oral tablet 10 mg = 1 tab, Oral, Daily, for 90 days- dose change 10/20/2021 Start Date: 03/02/22 Status: Ordered multivitamin adult, oral tablet 1 [...] Daily, # 50 g, 0 Refill(s), Pharmacy: [facility], 149.86, cm, 07/29/22 17:57:00 EST, Height/Length Dosing, 127.07, kg, 07/29/22 17:57:00 EST, Weight Dosing Start Date: 07/29/22 Status: Ordered torsemide 20 mg oral tablet 1 tab, Oral, TID, PRN IF NEEDED, # 69 tab, 0 Refill(s), Pharmacy: [facility], 150, cm, 03/14/22 6:18:00 EDT, Height/Length Dosing, 129, kg, 03/14/22 6:18:00 EDT, Weight Dosing Start Date: 07/10/22 Status: Ordered Trulicity Pen 1.5 mg/0.5 mL subcutaneous solution every week Start Date: 03/02/22 Status: Ordered Vitamin C 500 mg oral tablet 500 mg = 1 tab, Oral, Daily, # 30 tab, 0 Refill(s), other reason (Rx) Start Date: 03/24/22 Status: Ordered ZyrTEC 10 mg oral tablet 10 mg = 1 tab, Oral, Daily, # 90 tab, 3 Refill(s), Pharmacy: [id number], 150, cm, 03/14/22 6:18:00 EDT, Height/Length Dosing, 129, kg, 03/14/22 6:18:00 EDT, Weight Dosing Start Date: 04/19/22 Status: Ordered ZyrTEC-D 5 mg-120 mg oral tablet, extended release 1 tab, Oral, every 24 hr, # 30 tab, 0 Refill(s), Pharmacy: [id number], 150, cm, 226:18:00 EDT, [...] tonsillectomy 2003; repeat adenoidectomy 2013 3with adenoidectomy Vital Signs Most recent to oldest [Reference Range]: 1 Temperature Temporal Artery [36-38 Deg C ] 36.9 Deg C (07/29/22 5:51 PM) Peripheral Pulse Rate [60-100 bpm] 110 b pm *HI* (07/29/22 5:51 PM) Respiratory Rate [12-24 br/min] 20 br/mi n (07/29/22 5:51 PM) Blood Pressure [90-140/60-90 mmHg] 132/8 9mmHg (07/29/22 5:51 PM) Weight Dosing 127.07 kg (07/29/22 5:57 PM) Weight Estimated 127.07 kg (07/29/22 5:51 PM) Height/Length Dosing 149.860 cm (07/29/22 5:57 PM) Height/Length Estimated 149.860 cm (07/29/22 5:51 PM) Social History Social History Type Response Tobacco Never tobacco user T obacco Use:. Sex Female Hospital Discharge Instructions Patient Education 07/29/2022 17:42:02 Burn Care, Adult, Anuy-nm-Kocc Burn Care, Adult A burn is an injury to the skin or the tissues under the skin. There are three types of aranda: ??? First degree. These aranda may cause the skin to be red and a bit swollen. ??? Second degree. These aranda are very painful and cause the skin to be very red. The skin may also swell, leak fluid, look shiny, and start to have blisters. ??? Third degree. These aranda cause lasting damage. They turn the skin white or black and make it look charred, dry, and leathery. Treatment for your burn will depend on the type of burn you have. Taking good care of your burn canhelp to prevent pain and infection. It can also help the burn heal quickly. How to care for a first-degree burn Right after a burn: ??? Rinse or soak the burn under cool water for 5 minutes or more. Do not put ice on your burn. That can cause more damage. ??? Put a cool, clean, wet cloth on your burn. ??? Put lotion or gel with aloe vera on your burn. Caring for the burn Clean and care for your burn. Your doctor may tell you: ??? To clean the burn using soap and water. ??? To pat the burn dry using a clean cloth. Do not rub or scrub the burn. ??? To put lotion or gel with aloe vera on your burn. How to care for a second-degree burn Right after a burn: ??? Rinse or soak the burn under cool water. Do this for 5 to 10 minutes. Do not put ice on your burn. This can cause more damage. ??? Remove any jewelry near the burned area. ??? Cover the burn with a clean cloth. Caring for the burn ??? Raise (elevate) the burned area above the level of your heart while sitting or lying down. ??? Clean and care for your burn. Your doctor may tell you: ??? To clean or rinse your burn. ??? To put a cream or ointment on the burn. ??? To place a germ-free (sterile) dressing over the burn. A dressing is a material that is placed on a burn to help it heal. How to care for a third-degree burn Right after a burn: ??? Cover the burn with a clean, dry cloth. ??? Seek treatment right away if you have this kind of burn. You may: ??? Need to stay in the hospital. ??? Have surgery to remove burned tissue. ??? Have surgery to put new skin on the burned area. ??? Be given fluids through an IV tube. Caring for the burn Clean and care for your burn. Your doctor may tell you: ??? To clean or rinse your burn. ??? To put a cream or ointment on the burn. ??? To put a sterile dressing in the burn. This is called packing. ??? To place a sterile dressing over the burn. Other things to do ??? Raise the burned area above the level of your heart while sitting or lying down. ??? Wear splints or immobilizers if told by your doctor. ??? Rest as told by your doctor. Do not do sports or other activities until your doctor approves. How to prevent infection when caring for a burn ??? Take these steps to prevent infection: ??? Wash your hands with soap and water for at least 20 seconds before and after caring for your burn. If you cannot use soap and water, use hand new car salesperson. ??? Wear clean or sterile gloves as told by your doctor. ??? Do not put butter, oil, toothpaste, or other home remedies on the burn. ??? Do not scratch or pick at the burn. ??? Do not break any blisters. ??? Do not peel the skin. ??? Do not rub your burn, even when you are cleaning it. ??? Check your burn every day for these signs of infection: ??? More redness, swelling, or pain. ??? Warmth. ??? Pus or a bad smell. ??? Red streaks around the burn. Follow these instructions at home Medicines ??? Take ussn-smj-jrslxjt and prescription medicines only as told by your doctor. ??? If you were prescribed an antibiotic medicine, use it as told by your doctor. Do not stop usingthe antibiotic even if your condition gets better. ??? Your doctor may ask you to take medicine for pain before you change your dressing. General instructions ??? Protect your burn from the sun. ??? Drink enough fluid to keep your pee (urine) pale yellow. ??? Do not use any products that contain nicotine or tobacco, such as cigarettes, e-cigarettes, andchewing tobacco. These can delay healing. If you need help quitting, ask your doctor. ??? Keep all follow-up visits as told by your doctor. This is important. Contact a doctor if: ??? Your condition does not get better. ??? Your condition gets worse. ??? You have a fever or chills. ??? Your burn feels warm to the touch. ??? You have more redness, swelling, or pain on your burn. ??? Your burn looks different or starts to have black or red spots on it. ??? Your pain does not get better with medicine. Get help right away if: ??? You have more fluid, blood, or pus coming from your burn. ??? You have red streaks near the burn. ??? You have very bad pain. Summary ??? There are three types of aranda. They are first degree, second degree, and third degree. Of these, a third-degree burn is most serious. This must be treated right away. ??? Treatment for your burn will depend on the type of burn you have. ??? Do not put butter, oil, toothpaste, or other home remedies on the burn. These things can damageyour skin. ??? Follow instructions from your doctor about how to clean and take care of your burn. This information is not intended to replace advice given to you by your health care provider. Make sure you discuss any questions you have with your health care provider. Document Revised: 10/15/2020 Document Reviewed: 06/15/2020 [employer] Patient Education ?? 2021 [employer]. Follow Up Care 07/29/2022 17:50:56 With:Follow up with primary care provider Address: When: only if needed Physician Emergency department Note * Wilbur Harry MD: PERFORM Event Display: ED Note Physician Authored Date: [id number] MARIELOS MIRAMONTES :1995 Age:27 years Sex:Female Visit Date:07/29/2022 Primary Care Physician: Jamila Archer MD Basic Information Time Seen: Wilbur Harry MD / 07/29/2022 17:57 Chief Complaint Pt c/o a burn to her right hand from ??a wood stove History Of Present Illness: 27-year-old female with a history of diabetes presents because of a burn to the right hand. ??About4 hours ago she accidentally touched a wood stove across her menaced??on the distal palm of her right hand. ??Fingers not burn. ??She took Advil??3 to 4 hours ago at the time.?? No blistering no bonyalso reported. Review of Systems: Constitutional:??no??fever,? Skin: See HPI Physical Exam Vitals & Measurements T:??36.9?C ??(Temporal Artery)?? HR:??110??(Peripheral)?? RR:??20?? BP:??132/89?? SpO2:??96%?? HT:??149.860??cm?? WT:??127.07??kg??(Estimated)?? Pain Score:??7?? O2 Therapy:??Room air?? General:??alert,??no acute distress.?? Obesity noted Skin:??warm,??dry.?? Some erythema??across the distal palm of the right hand, there is no blistering, it is a first-degree or superficial second-degree burn. Head:??no??trauma,??normocephalic. ?normal??peripheral perfusion. ?respirations??non-labored. ?? Extremities:??no??deformity, right hand shows slight redness and erythema to the distal palm, no circumferential aranda and the fingers are spared.?? She can grasp with her finger with no signs of tendon??injury.?? Where it is red there is no blistering or open skin. Neurological:??oriented??x 4, LOC??appropriate for age,?? , speech??normal. Psychiatric:??cooperative, affect??appropriate for age,?? Medical Decision Making: Patient stable here. ??Appears to have a first-degree or superficial second- degree burn. ??No concern at this time.?? It is painful when televideo so we will put some Silvadene and cover. ??Ibuprofengiven for pain. ??Will recommend??dressing changes??daily to take some Motrin as needed. ??With her doctor??in 3 to 4 days if??there is some blistering needing??debridement or??improvement. ??Discharged??in stable condition Procedure No Qualifying Data Assessment/Plan 1.??Superficial burn of right hand??T23.101A Ordered: Silvadene 1% topical cream, 1 trenton, Topical, Daily, # 50 g, 0 Refill(s), Pharmacy: [id number], 149.86, cm, 07/29/22 17:57:00 EST, Height/Length Dosing, 127.07, kg, 07/29/22 17:57:00 EST, Weight Dosing Discharge Patient, 07/29/22 18:41:00 EST, Home Independently, Constant Indicator ?? Orders: ibuprofen, 600 mg = 1 tab, Oral, Tab, Once, First Dose: 07/29/22 18:36:00 EST, Stop Date: 07/29/22 18:36:00 EST, Physician Stop, STAT Silvadene 1% topical cream, 1 trenton, Topical, Cream, Once, First Dose: 07/29/22 18:37:00 EST, Stop Date: 07/29/22 18:37:00 EST, Physician Stop, STAT Patient Education Burn Care, Adult, Liex-ef-Okyl Follow Up With When Contact Information Follow up with primary care provider Only if needed Additional Instructions: Medication Reconciliation New Prescription silver sulfADIAZINE topical (Silvadene 1% topical cream)1 Application Topical (on the skin) every day. Refills: 0. ?? Unchanged amoxicillin-clavulanate (amoxicillin-clavulanate 875 mg-125 mg oral [...] 1.5 mg/0.5 mL subcutaneous solution)every week. ?? ergocalciferol (ergocalciferol 1.25 mg (50,000 intl [...] total daily dose of 225 MCG. ?? lisinopril (lisinopril 10 mg oral tablet)1 tab Oral (given by mouth) every day. for 90 days- dose change 10/20/2021. ?? multivitamin (multivitamin adult, oral tablet)1 tab Oral (given by mouth) every day. Refills: 0. ?? Other Prescription (Agradis VERIO FLEX KIT)1 each by [facility]. (non drug: combo route) route 4 times daily.. ?? Other Prescription (Portable ZooUCH VERIO MARLENE)Test blood glucose withone new test strip 4 times daily. ?? torsemide (torsemide 20 mg oral tablet)TAKE 1 TABLET BY MOUTH ONCE DAILY, MAY TAKE 2 TO 3 TIMES DAILY IF NEEDED (DOSE INCREASE). Refills: 0. ?? torsemide (torsemide 20 mg oral tablet)1 tab Oral (given by mouth) 3 times a day as needed IF NEEDED. Refills: 0. Problem List/Past Medical History Ongoing [...] (12/22/2020)???Adenoidectomy (09/10/2013)???Tonsillectomy (09/10/2003) Allergies morphine Social History Electronic Cigarette/Vaping Electronic Cigarette Use: Never. Tobacco Never tobacco user Tobacco Use:. Family History Diabetes mellitus: Other. Insomnia: Mother. Restless legs syndrome: Grandfather (M). Sleep apnea: Mother, Father and Grandfather (P). Electronically Signed on 07/29/22 06:42 PM Wilbur Harry MD Emergency department Discharge instructions * Wilbur Harry MD: PERFORM Event Display: ED Discharge Information Authored Date: [id number] MARIELOS MIRAMONTES :1995 Age:27 years Sex:Female Visit Date:07/29/2022 Primary Care Physician: Jamila Archer MD Discharge Instructions We would like to thank you for allowing us to assist you with your healthcare needs. The following includes patient education materials and information regarding your injury/illness. Diagnosis from Today's Visit Superficial burn of right hand Discharge Vitals Temperature??(Temporal Artery) 98.4 ??F (36.9 ??C) Heart Rate??(Peripheral) 110 Respiratory Rate?? 20 Blood Pressure?? 132/89?? Height?? 59.00 in (149.860 cm) Weight??(Estimated) 280.19 lb (127.07 kg) Allergies morphine What to Do Next Instructions from Your Care Team Change dressing daily, wash with mildly soapy water then apply Silvadene??cream and keep covered until better. ??If there is some blistering, follow-up with your doctor for recheck and potential debridement of the blisters. ??He may take some ibuprofen as needed for pain also. You Need to Schedule the Following Appointments Follow Up with??Follow up with primary care provider When:??Only if needed Upcoming Scheduled Appointments Sunday 3:00 PM EST ?? Sunday 12:40 PM EST ?? You were treated today [...] Much When Why Instructions Next Dose New silver sulfADIAZINE topical (Silvadene 1% topicalcream) 1 Application Topical (on the skin) Every day Superficial burn of right hand Pickup at [facility] 7781 Unchanged amoxicillin-clavulanate (amoxicillin-clavulanate 875 mg-125 mg oral [...] hours Ear infection Unchanged dulaglutide (Trulicity Pen 1.5 mg/ 0.5 mL subcutaneous solution) Every week Unchanged ergocalciferol (ergocalciferol 1.25 mg (50,000 intl [...] total dailydose of 225 MCG ?? Unchanged lisinopril (lisinopril 10 mg oral tablet) 1 tab Oral (given by mouth) Every day for 90 days- dose change 2021 ?? Unchanged multivitamin (multivitamin adult, oral tablet) 1 tab Oral (given by mouth) Every day Unchanged Other Prescription (Purple BinderIO FLEX KIT) 1 each by [facility]. (non drug: combo route) route 4 times daily. ?? Unchanged Other Prescription (ONETOUCH VERIO MARLENE) Test blood glucose withone new test strip 4 times daily ?? Unchanged torsemide (torsemide 20 mg oral tablet) See instructions TAKE 1 TABLET BY MOUTH ONCE DAILY, MAY TAKE 2 TO 3 TIMES DAILY IF NEEDED (DOSE INCREASE) ?? Unchanged torsemide (torsemide 20 mg oral tablet) 1 tab Oral (given by mouth) 3 times a day as needed for IF NEEDED Pharmacy Information [facility] [address]: [address] [place] [address] [phone] Education Materials Burn Care, Adult A burn is an injury to the skin or the tissues under the skin. There are three types of aranda: ? First degree. These aranda may cause the skin to be red and a bit swollen. ? Second degree. These aranda are very painful and cause the skin to be very red. The skin may also swell, leak fluid, look shiny, and start to have blisters. ? Third degree. These aranda cause lasting damage. They turn the skin white or black and make it look charred, dry, and leathery. Treatment for your burn will depend on the type of burn you have. Taking good care of your burn canhelp to prevent pain and infection. It can also help the burn heal quickly. How to care for a first-degree burn Right after a burn: ? Rinse or soak the burn under cool water for 5 minutes or more. Do not put ice on your burn. That can cause more damage. ? Put a cool, clean, wet cloth on your burn. ? Put lotion or gel with aloe vera on your burn. Caring for the burn Clean and care for your burn. Your doctor may tell you: ? To clean the burn using soap and water. ? To pat the burn dry using a clean cloth. Do not rub or scrub the burn. ? To put lotion or gel with aloe vera on your burn. How to care for a second-degree burn Right after a burn: ? Rinse or soak the burn under cool water. Do this for 5 to 10 minutes. Do not put ice on your burn. This can cause more damage. ? Remove any jewelry near the burned area. ? Cover the burn with a clean cloth. Caring for the burn ? Raise (elevate) the burned area above the level of your heart while sitting or lying down. ? Clean and care for your burn. Your doctor may tell you: ? To clean or rinse your burn. ? To put a cream or ointment on the burn. ? To place a germ-free (sterile) dressing over the burn. A dressing is a material that is placed on aburn to help it heal. How to care for a third-degree burn Right after a burn: ? Cover the burn with a clean, dry cloth. ? Seek treatment right away if you have this kind of burn. You may: ? Need to stay in the hospital. ? Have surgery to remove burned tissue. ? Have surgery to put new skin on the burned area. ? Be given fluids through an IV tube. Caring for the burn Clean and care for your burn. Your doctor may tell you: ? To clean or rinse your burn. ? To put a cream or ointment on the burn. ? To put a sterile dressing in the burn. This is called packing. ? To place a sterile dressing over the burn. Other things to do ? Raise the burned area above the level of your heart while sitting or lying down. ? Wear splints or immobilizers if told by your doctor. ? Rest as told by your doctor. Do not do sports or other activities until your doctor approves. How to prevent infection when caring for a burn ? Take these steps to prevent infection: ? Wash your hands with soap and water for at least 20 seconds before and after caring for your burn. If you cannot use soap and water, use hand new car salesperson. ? Wear clean or sterile gloves as told by your doctor. ? Do not put butter, oil, toothpaste, or other home remedies on the burn. ? Do not scratch or pick at the burn. ? Do not break any blisters. ? Do not peel the skin. ? Do not rub your burn, even when you are cleaning it. ? Check your burn every day for these signs of infection: ? More redness, swelling, or pain. ? Warmth. ? Pus or a bad smell. ? Red streaks around the burn. Follow these instructions at home Medicines ? Take prti-mfl-kkulnqg and prescription medicines only as told by your doctor. ? If you were prescribed an antibiotic medicine, use it as told by your doctor. Do not stop using theantibiotic even if your condition gets better. ? Your doctor may ask you to take medicine for pain before you change your dressing. General instructions ? Protect your burn from the sun. ? Drink enough fluid to keep your pee (urine) pale yellow. ? Do not use any products that contain nicotine or tobacco, such as cigarettes, e- cigarettes, and chewing tobacco. These can delay healing. If you need help quitting, ask your doctor. ? Keep all follow-up visits as told by your doctor. This is important. Contact a doctor if: ? Your condition does not get better. ? Your condition gets worse. ? You have a fever or chills. ? Your burn feels warm to the touch. ? You have more redness, swelling, or pain on your burn. ? Your burn looks different or starts to have black or red spots on it. ? Your pain does not get better with medicine. Get help right away if: ? You have more fluid, blood, or pus coming from your burn. ? You have red streaks near the burn. ? You have very bad pain. Summary ? There are three types of aranda. They are first degree, second degree, and third degree. Of these, athird-degree burn is most serious. This must be treated right away. ? Treatment for your burn will depend on the type of burn you have. ? Do not put butter, oil, toothpaste, or other home remedies on the burn. These things can damage your skin. ? Follow instructions from your doctor about how to clean and take care of your burn. This information is not intended to replace advice given to you by your health care provider. Make sure you discuss any questions you have with your health care provider. Document Revised: 10/15/2020 Document Reviewed: 06/15/2020 [employer] Patient Education ?? 2021 [employer] Patient/Slasher Hand Signature Patient Name:MARIELOS MIRAMONTES I have received this information and my questions have been answered. Patient/Slasher Hand Name: Patient/Slasher Hand Signature: Relationship to Patient: Witness Name/Signature: Date: Electronically Signed on: 07/29/2022 18:42 ESTSigned by:MRDamien Emergency department Note * Amanda Nova: PERFORM Event Display: ED Notes Authored Date: [id number] Patient Care team information Personnel Name: Jamila Archer MD Address: Address: [place] [address]
--- OUTSIDE RECORDS SUMMARY | 2024-02-29 19:09 | XMS_ITS | Continuity of Care Document ---
Author Name Unknown Organization [facility] Address [address] [place] [address] Care Team Providers Care Team Foreman Name Role Phone Jamila Archer Primary Care Physician Encounter [facility] Date(s): 01/09/23 - 01/09/23 [facility] [address] [place] [address] Encounter Diagnosis HTN (hypertension)(Discharge Diagnosis) - 01/09/23 Edema(Discharge Diagnosis) - 01/09/23 Edema, peripheral(Discharge Diagnosis) - 01/10/23 Discharge Disposition: Home or Self Care Attending Physician: Jaida Lamb NP Referring Physician: Natalie Wade NP Allergies, Adverse Reactions, Alerts Substance Reaction Severity Status morphine Unknown Active rOPINIRole Severe Active Assessment and Plan Future Appointments Future Scheduled Tests Laboratory* SARS-CoV-2 (COVID-19)/Flu/RSV ([facility]) 08/21/22 Functional Status 01/09/23 Other exposure to Infectious Disease Non e [...] instructions, # 500 EA, 0 Refill(s), Pharmacy: [facility] Start Date: 09/08/22 Status: Ordered cefpodoxime 200 mg oral tablet 200 mg = 1 tab, Oral, every 12 hr, # 20 tab, 0 Refill(s), Pharmacy: [facility], 149, cm,12/31/22 3:07:00 EDT, Height/Length Dosing, 150, kg, 12/31/22 3:07:00 EDT, Weight Dosing Start Date: 01/02/23 Stop Date: 01/12/23 Status: Ordered Dexcom G6 sensors Dexcom G6 sensors, To check BS 4x daily, Supply, See instructions, # 6 EA, 0 Refill(s), Pharmacy: [facility] Start Date: 11/24/22 Status: Ordered Diflucan 150 mg oral tablet 150 mg = 1 tab, Oral, Once, Can repeat in 3 days if symptoms persist, # 2 tab, 0 Refill(s), Pharmacy: [place] [id number], 149, cm, 12/31/22 3:07:00 EDT, Height/Length Dosing, [...] instructions, # 1 EA, 0 Refill(s), [id number] Start Date: 12/18/22 Status: Ordered Glucagon Emergency [...] dose., # 90 tab, 3 Refill(s), Pharmacy: [id number], 150, cm, 10/27/22 6:33:00 EST, Height/Length D... Start Date: 10/27/22 Status: Ordered levothyroxine 125 mcg (0.125 mg) oral tablet 125 mcg = 1 tab, Oral, Daily, Take one tablet by mouth with water a half hour before eating or taking any other medication. Take with 100 mcg dose., # 90 tab, 3 Refill(s), Pharmacy: [id number], 150, cm, 10/27/22 6:33:00 EST, Height/Length D... Start Date: 10/27/22 Status: Ordered lisinopril 10 mg oral tablet 10 mg = 1 tab, Oral, Daily, for 90 days- dose change 10/20/2021, # 90 tab, 3 Refill(s), Pharmacy: [facility], 150, cm, 08/09/22 1:15:00 EST, Height/Length Dosing, 127.01, kg, 08/09/22 1:15:00 EST, Weight Dosing Start Date: 10/05/22 Status: Ordered multivitamin adult, oral tablet 1 tab, Oral, Daily, # 90 tab, 0 Refill(s), other reason (Rx) Start Date: 03/24/22 Status: Ordered ONETOUCH VERIO FLEX KIT ONETOUCH VERIO FLEX KIT, 1 each by [facility]. (non drug: combo route) route 4 times daily. Start Date: 03/02/22 Status: Ordered ONETOUCH VERIO MARLENE ONETOUCH VERIO MARLENE, Test blood glucose withone new test strip 4 times daily Start Date: 03/02/22 Status: Ordered Tessalon Perles 100 mg oral capsule 200 mg = 2 cap, Oral, TID, PRN as needed for cough, do not crush or chew, # 84 cap, 0 Refill(s), Pharmacy: [facility], 149, cm, 12/31/22 3:07:00 EDT, Height/Length Dosing, 150, kg, 12/31/22 3:07:00 EDT, Weight Dosing Start Date: 01/02/23 Stop Date: 01/16/23 Status: Ordered torsemide 20 mg oral tablet 1 tab, Oral, TID, PRN IF NEEDED, # 90 tab, 1 Refill(s), Pharmacy: [id number], 149, cm, 12/31/22 3:07:00 EDT, Height/Length Dosing, 150, kg, 12/31/22 3:07:00 EDT, Weight Dosing Start Date: 01/10/23 Status: Ordered triamcinolone 0.1% topical cream 1 trenton, Topical, BID, # 60 g, 0 Refill(s), Pharmacy: [facility], 150, cm, 11/18/22 19:16:00 EST, [...] Daily, # 5 tab, 0 Refill(s), Pharmacy: [facility], 149, cm, 12/31/22 3:07:00 EDT, Height/Length Dosing, 150, kg, 12/31/22 3:07:00 EDT, Weight Dosing Start Date: 01/02/23 Stop Date: 01/07/23 Status: Ordered ZyrTEC-D 5 mg-120 mg oral tablet, extended release 1 tab, Oral, every 24 hr, # 30 tab, 0 Refill(s), Pharmacy: [facility], 150, cm, 226:18:00 EDT, Height/Length [...] Range]: 1 Peripheral Pulse Rate [60-100 bpm] 108 b pm *HI* (01/09/23 2:25 PM) Blood Pressure [90-140/60-90 mmHg] 147/7 0mmHg *HI* (01/09/23 2:25 PM) Weight 140.5 kg (01/09/23 2:25 PM) Weight Measured (lbs) 309.749 lb (01/09/23 2:25 PM) Social History Social History Type Response Tobacco Never tobacco user T obacco Use:. 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 She reports that the artificial inseminator advised her that she does not need to wear compression stockings, she said everything is fine, not to worry. She is noted to have 2-3+edema in her left ankle. She reports that she has gone through 3 Dexcom in the past week. She is unsure what to do, she is unable to receive a refill until January 16. Her transmitter will be ending on January 24. Advised her that she needed to contact the [employer] company with rationale, she needs to let them know her difficulties with the sensors, and they should be replacing them. We tried calling from room G2, but the cell service did not work. Advised her to call once she has good cell service. Her current blood glucose is reading HIGH which means that it is over 400. She reports that he glucose creeps up because of the antibiodics. She reports that all she had for lunch was a tuna wrap.She took 200 units of insulin this am, and her readings have been over 300. She is vague about whatshe is eating. ? what she is consuming for carbs. She reports that she will be starting a low carb d iet, at a cost fo $400/month, called [employer]ula. Advised her of the potential hypoglycemia that may occur with such a low carb diet. She reports that many members of her jewish are on it and have been successful, and that she has a family coach. Asked her if her family coach is familiar with diabetes management, she stated that she knows everything, and my office helper clerical approved it. Advised her to use caution, rationale fully explained. She reports that Medicaid has not approved her Victoza. [facility] [place]. We discussed the new G7 sensors, and contacting the office helper clerical office to see if they would order them. They require a PA and would need a new dairy farm supervisor. She just received the new dairy farm supervisor for theG6. With Dhara's consent, after she left, This senior grant writer contacted her pharmacy to see if she could get the sensors sooner, and she cannot get them until 01/16. She has no refills for the Transmitter. The pharmacist will be sending over the order to be refilled. Dhara will be contacting this senior grant writer Sunday or for an update on the call to Dexcom. Will follow up Physician Outpatient Note * Jaida Lamb PROCESS TANK TENDER: PERFORM Event Display: Office Clinic Note Physician Authored Date: [id number] DHARA MIRAMONTES :1995 Age:27 years Sex:Female Visit Date:01/09/2023 Primary Care Physician: Jamila Archer MD History of Present Illness Cardiac problems: 1.?? Edema 2. ??Diabetes mellitus 3. ??Obesity 4. ??Obstructive sleep apnea with BiPAP 5. ??Tachycardia 6. ??Mild aortic stenosis, with mean gradient of 9 on echocardiogram November 2022 7.?? Pulmonary hypertension,??with??RV systolic pressure of??45 on echocardiogram November 2022,??likely attributable to obstructive sleep apnea. ?? This is a 27-year-old woman who is referred for edema.?? She is taking torsemide.?? She was advisedto use compression stockings, and was ultimately given a prescription to help??support the cost.?? When she last saw her primary care provider, a couple of weeks ago, stasis dermatitis was noted. ?? Dhara is here today after being referred by her primary for edema in her lower extremities and being told it was my heart. She was admitted in December with pneumonia, where she states they stopped her torsemide during her stay. An echo was performed and shows preserved ejection fraction of 60 to 65% with normal wall motion,??s mild aortic stenosis noted with??mean gradient of 9 mmHg, and mild pulmonary hypertension??with RV systolic pressure of 45 mmHg. She is currently finishing her antibiotics, and she states that she was told her lungs looked normal after her chest xray on 01/02/2023. ?? She reports that she is still getting out of breath with minimal activity such as walking up the stairs. She currently still has a sporadic cough from the pneumonia, and this is the only time that she experiences some chest discomfort. She denies chest pain, but more soreness when she coughs overher sternum. She denies nausea, lightheadedness, or radiation of this discomfort. The discomfort only lasts a few seconds while coughing. No chest pain otherwise noted. Deepti palpitations. She does note that she feels her heart racing frequently, especially with activity. No chest pain with this, no syncope. ?? She was seen at [facility] last and was prescribed compression socks for her edema. She states that she only had them on for one hour due to immense pain in her legs and feet with them on. She says that even during the hospital stay in December, it was noted that the compression socks were not working, the fluid wasn't going anywhere and wondered if she could stop using them. She states her primary care doctor did not notice a difference in her edema using the compression socks either. ?? She has noticed that her edema is going down. Her right leg is perfect, its just my left leg that had the cellulitis that is still swollen. She was increased to 40mg of Torsemide BID after they found cellulitis in her left leg. She takes the medication around 10 am and 4pm, notices she urinates within 30 minutes for 4 hours?? then back to normal. Denies PND. ?? She is drinking 3-4 of the 20oz bottles of water daily. She has a bottle infront of her today and contunes to drink it??during the appointment. She states??she??does add caffeine, crystal light with caffeine in?? the water and drinks Gatorade zero-1.5 of the 16oz a day. ??She notes that if she has to drive she will have 80mg of caffeine in afternoon. ??When in hospital she was told sodium was low, and??given?sodium drink?? . However, she does have Pizza twice a week. and some pre-packaged food. She reports that she is starting a new diet-Optivia- it send meals 5 meals a day, eat every 2-3hours, and then she must??make a lean and green meal, plus drink 80oz a day.? She feels like she is wheezing a lot, even though she was told her lungs were clear. She finds she is out of breath with eating. Her primary wonders if there is soft tissue in her??throat from herCpap, so she is getting a new Cpap on the because the filter is damaged. Before pneumonia she was doing evette 3 times a week. Now she is short of breath walking up the stairs and this is the most activity she is doing. During this time she says her heart pounds in chest, she is short of breath, but experiences no pain, no nausea, and no Passing out.? Review of Systems A complete review of systems is negative other than as noted in the history of present illness. Physical Exam Vitals & Measurements HR:??108??(Peripheral)?? BP:??147/70?? SpO2:??90%?? WT:??140.5??kg?? HEENT: Normocephalic, atraumatic Respirations: Clear to auscultation bilaterally with no wheezes rubs or rhonchi Cardiac: Regular rate and rhythm, normal S1, S2, no murmurs gallops or rubs Abdomen: Nontender nondistended normal active bowel sounds Extremities: 2+ dorsalis pedis pulses bilaterally with 1+ edema Medical Decision Making Data reviewed: 11/23/2022: Lower extremity Dopplers, negative for DVT 11/28/2022: PFTs: Increased diffusion capacity which??is consistent with??chest wall limitation 11/28/2022: Echocardiogram: Ejection fraction 60 to 65% with normal wall motion there is mild aorticstenosis noted with??mean gradient of 9 mmHg, and there is mild pulmonary hypertension??with RV systolic pressure of 45 mmHg. 01/09/2023: EKG: Sinus Tachycardia with 105 bpm. Baird and intervals within normal limits. No evidence of ischemia. ?? Edema: Last weight measured was on 12/31/2022 at 150kg and she is 140kg today in office today. She feels like she has accomplished a lot on the torsemide with a reduction in her weight since the lastweek of December.??Her echocardiogram is reassuring. We discussed that she is at a therapeutic dose ofher torsemide considering she is urinating 30 minutes after ingestion and it is lasting 4 hours without PND. However, I encouraged her to cut down her fluid intake.??We are trying to pull fluid off with the torsemide and she is replacing it all with the plethora of fluid she is taking in daily. I want her always a little thirsty. I encouraged the use of compression stockings as well but she feelsthey are not working.??She can try to increase exercise and decreasing fluid intake and salt intakebut I warned her that she may have to use the compression stockings again. I am interested to see what the edema does without her replacing the fluids with her drinking. She is meeting with her primary on January 15 to follow up from her pneumonia. She is appropriately medicated at this time with torsemide. ?? I will plan to see her back in 1 month to see if??reducing fluids has helped with the edema. I instructed her to call and be seen sooner if she is experiencing pain, increased shortness of breath.She understands and agrees with plan. It was a pleasure to meet with Dhara. Clinic Assessment/Plan HTN (hypertension)??I10 Actions: [facility], 01/09/23 14:23:00 EDT, Routine, Reason: Other (please specify), Stop date and time 01/09/23 14:23:00 EDT, HTN (hypertension), ORD_SET_REQ_DT_RANGE, [facility] Internal PersonId FUTURE - Follow-Up Appointment Request [facility], *Est. 02/09/23 +/- 7 days, Future Order, In [facility] ?? Problem List/Past Medical History Ongoing [...] Medications What How Much When Why Instructions Unchanged ascorbic acid (Vitamin C 500 mg oral tablet) 1 tab Oral (given by mouth) Every day Unchanged atorvastatin (atorvastatin 40 mg oral tablet) 1 tab Oral (given by mouth) Every day Unchanged azithromycin (Zithromax 500 mg oral tablet) 1 tab Oral (given by mouth) Every day Duration: 5 Days Unchanged benzonatate (Tessalon Perles 100 mg oral capsule) 2 Capsules Oral (given by mouth) 3 times a day as needed for as needed for cough Duration: 14 Days do not crush or chew ?? Unchanged cefpodoxime (cefpodoxime 200 mg oral tablet) 1 tab Oral (given by mouth) Every 12 hours Duration: 10 Days Unchanged cetirizine-pseudoephedrine (ZyrTEC-D 5 mg-120 mg oral [...] by mouth) Every day Unchanged Other [facility] each by [facility] (non drug: combo route) route 4 times daily. ?? Unchanged Other Prescription (ONETOUCH VERIO MARLENE) Test blood glucose withone new test strip 4 times daily ?? Unchanged torsemide (torsemide 20 mg oral tablet) 1 tab Oral (given by mouth) 3 times a day as needed for IF NEEDED Edema, peripheral Unchanged triamcinolone topical (triamcinolone 0.1% topical cream) 1 Application Topical (on the skin) 2 times a day Stasis dermatitis of both legs Bilateral lower extremity edema Duration: 10 Days Allergies rOPINIRole morphine Social History Alcohol Current, [...] pediatric vaccine 1995 Recorded Electronically Signed on 01/09/23 03:49 PM Jaida Lamb NP Patient Care team information Care Team Personnel Name: Jamila Archer MD Position: Physician Member Role: Informed Provider Address: Address: [facility] [place] [place] [address] [place] Name: Shila Krueger Position: Ambulatory - RN/REMOTE MEDICAL CODER ([facility]) Member Role: Director Of Home Care Hospice Care Team Related Persons Name: BISHOP EMILIO Address: [address] [place], [id number] Name: ELLIS GRAMAJO Address: Home [address] [place], [id number]
--- OUTSIDE RECORDS SUMMARY | 2024-02-29 19:09 | XMS_ITS | Continuity of Care Document ---
Author Name Unknown Organization [facility] Address [address] [place] [address] Care Team Providers Care It Technical Architect Name Role Phone Jamila Archer Primary Care Physician Encounter [facility] Date(s): 10/26/22 - 10/26/[address] [address] Discharge Disposition: Home or Self Care Attending Physician: Sully Singleton NP Admitting Physician: Sully Singleton NP Referring Physician: Sully Singleton STORE OPERATIONS MANAGER Allergies, Adverse Reactions, Alerts Substance Reaction Severity [...] hr, # 14 tab, 0 Refill(s), Pharmacy: [id number], 150, cm, 03/14/22 6:18:00 EDT, [...] instructions, # 500 EA, 0 Refill(s), Pharmacy: [place] [id number] Start Date: 09/08/22 Status: Ordered clotrimazole 1% topical cream 1 trenton, Topical, BID, # 300 g, 0 Refill(s), Pharmacy: [place] [id number], 150, cm, 08/09/22 1:15:00 EST, Height/Length Dosing, 127.01, kg, 08/09/22 1:15:00 EST, Weight Dosing Start Date: 08/22/22 Status: Ordered Diflucan 150 mg oral tablet 150 mg = 1 tab, Oral, Once, May repeat second tab in 2 days if needed., # 2 tab, 0 Refill(s), Pharmacy: [facility] [place] [id number], 150, cm, 03/14/22 6:18:00 EDT, Height/Length Dosing, 129, kg, 03/14/22 6:18:00 EDT, Weight Dosing Start Date: 03/21/22 Status: Ordered ergocalciferol 1.25 mg (50,000 intl units) oral capsule 50,000 IntlUnit = 1 cap, Oral, every week Start Date: 03/02/22 Status: Ordered Euthyrox 200 mcg (0.2 mg) oral tablet 200 mcg = 1 tab, Oral, Daily, # 90 tab, 0 Refill(s), Pharmacy: [place] [id number], 150, cm, 03/14/22 6:18:00 EDT, Height/Length Dosing, [...] 10/20/2021, # 90 tab, 3 Refill(s), Pharmacy: [id number], 150, cm, 08/09/22 1:15:00 EST, Height/Length Dosing, 127.01, kg, 08/09/22 1:15:00 EST, Weight Dosing Start Date: 10/05/22 Status: Ordered multivitamin adult, oral tablet 1 tab, Oral, Daily, # 90 tab, 0 Refill(s), other reason (Rx) Start Date: 03/24/22 Status: Ordered ONETOUCH VERIO FLEX KIT ONETOUCH VERIO FLEX KIT, 1 each by [facility]. (non drug: combo route) route 4 times daily. Start Date: 03/02/22 Status: Ordered ONETOUCH VERIO MARLENE ONETOUCH VERIO MARLENE, Test blood glucose withone new test strip 4 times daily Start Date: 03/02/22 Status: Ordered Silvadene 1% topical cream 1 trenton, Topical, Daily, # 50 g, 0 Refill(s), Pharmacy: [facility], 149.86, cm, 07/29/22 17:57:00 EST, Height/Length Dosing, 127.07, kg, 07/29/22 17:57:00 EST, Weight Dosing Start Date: 07/29/22 Status: Ordered torsemide 20 mg oral tablet 1 tab, Oral, TID, PRN IF NEEDED, # 90 tab, 1 Refill(s), Pharmacy: [id number], 150, cm, 08/09/22 1:15:00 [...] Daily, # 90 tab, 3 Refill(s), Pharmacy: [id number], 150, cm, 03/14/22 6:18:00 EDT, Height/Length Dosing, 129, kg, 03/14/22 6:18:00 EDT, Weight Dosing Start Date: 04/19/22 Status: Ordered ZyrTEC-D 5 mg-120 mg oral tablet, extended release 1 tab, Oral, every 24 hr, # 30 tab, 0 Refill(s), Pharmacy: [id number], 150, cm, 226:18:00 EDT, [...] Completed Adenoidectomy 2 09/09/13 Completed Tonsillectomy 3 12/31/03 Completed 1left elbow fracture dislocation 2as part of tonsillectomy 2004; repeat adenoidectomy 2014 3with adenoidectomy Social History Social History Type Response Tobacco Never tobacco user T obacco Use:. Sex Female Patient Care team information Care Team Personnel Name: Jamila Archer MD Position: Physician Member Role: Informed Provider Address: Address: [place] [address]- Care Team Related Persons Name: EMILIO PATHAK Address: Home [address] [facility] [phone] Name: ELLIS GRAMAJO Address: Home [address] [place], [phone]
--- OUTSIDE RECORDS SUMMARY | 2024-02-29 19:10 | XMS_ITS | Continuity of Care Document ---
Author Name Unknown Organization [facility] Address [address] [place] [address] Care Team Providers Care Vp Of Technology Name Role Phone Jamila Archer Primary Care Physician Encounter NCTY_PR Date(s): 02/27/24 - 02/27/24 [facility] [address] [place] [address] Encounter Diagnosis HTN (hypertension)(Discharge Diagnosis) - 02/26/24 Discharge Disposition: Home or Self Care Attending Physician: Jaida Lamb NP Allergies, Adverse Reactions, Alerts Substance Reaction Severity Status morphine Unknown Active oxyCODONE 1 Unknown Active rOPINIRole Severe Active 1repotrs feeling loopy Assessment and Plan Extracted from: Title:Cardiology Clinic - Office Visit Note Auth or:Jaida Lamb NP Date:02/27/24 HTN (hypertension)??I10 Actions: COMPLETED - [id number] Office/Outpatient Visit - Established Patient, Level 3 (20-29 min)., 02/27/24 9:30:00 EDT, HTN (hypertension) INPROCESS - CV ECG Clinic, 02/27/24 9:30:00 EDT, Routine, Reason: Other (please specify), Stop date and time 02/27/24 9:30:00 EDT, HTN (hypertension), ORD_SET_REQ_DT_RANGECheri's Internal Person Id COMPLETED - Follow-Up Appointment Request CRYSTAL, 02/27/24 9:40:00 EDT, In Approximately, [facility], 02/27/24 9:40:00 EDT FUTURE - Follow-Up Appointment Request CRYSTAL, *Est. 08/28/24 +/- 28 days, Future Order, In Approximately, [facility] ?? Future Appointments Appointment Date:03/04/2024 04:30:00 PM Scheduled Provider:Shila Krueger Location:[facility] [place] Appointment Type:Care Coordination Follow-Up 60 (NCTY) Appointment Date:03/11/2024 04:00:00 PM Scheduled Provider:Shila Krueger Location:[facility] Appointment Type:Care Coordination Follow-Up 60 (NCTY) Future Scheduled Tests Laboratory* Basic Metabolic [...] wheezing, # 8.5 g, 3 Refill(s), Pharmacy: [id number], 149, cm, 12/10/23 11:24:00 EDT, Height, 136.08, kg, 12/10/23 11:26:00 EDT, Weight Dosing Start Date: 12/24/23 Status: Ordered allopurinol 300 mg oral tablet 300 mg = 1 tab, Oral, Daily, # 90 tab, 0 Refill(s), Pharmacy: [facility], 149, cm, 05/25/24 14:33:00 EDT, Height, 135.88, kg, 02/25/24 13:36:00 EDT, Weight Dosing Start Date: 02/25/24 Status: Ordered aspirin 81 mg oral capsule 81 mg = 1 cap, Oral, every 24 hr, # 90 cap, 4 Refill(s), Pharmacy: [place] [address], 149.86, cm, 11/27/23 8:07:00 EDT, Height, 136.08, kg, 11/27/23 8:15:00 EDT, Weight Dosing Start Date: 11/27/23 Status: Ordered atorvastatin 40 mg oral tablet 40 mg = 1 tab, Oral, Daily, # 90 tab, 3 Refill(s), Pharmacy: [place] [address], 149, cm, 12/10/23 11:24:00 EDT, Height, 136.08, kg, 12/10/23 11:26:00 EDT, Weight Dosing Start Date: 12/24/23 Status: Ordered B-D UF III SHORT PEN NEED MIS B-D UF III SHORT PEN NEED MIS, Use one new pen needle for each insulin injection 5 to 7 times per day as directed in case of pump malfunction, Supply, See instructions, # 500 EA, 0 Refill(s), Pharmacy: [place] [id number] Start Date: 12/24/23 Status: Ordered cetirizine 10 mg oral tablet 1 tab, Oral, BID, # 60 tab, 0 Refill(s), Pharmacy: [place] [address], 149, cm, 12/10/23 11:24:00 EDT, Height, 136.08, kg, 12/10/23 11:26:00 EDT, Weight Dosing Start Date: 12/24/23 Status: Ordered colchicine 0.6 mg oral tablet 1.2 mg = 2 tab, Oral, Once, 2 tabs at first sign of gout flare followed by 1 tablet in 1 hour, # 3 tab, 0 Refill(s), Pharmacy: [place] [address], 149, cm, 02/02/24 14:33:00 EDT, Height, 136.4, kg, 02/27/24 9:39:00 EDT, Weight Dosing Start Date: 02/27/24 Status: Ordered Dexcom CGM- change q10 days [...] higher, # 15 mL, 2 Refill(s), Pharmacy: [facility], 149, cm, 12/10/23 11:24:00 EDT, [...] Daily, # 90 tab, 0 Refill(s), Pharmacy: [facility], 149, cm, 12/10/23 11:24:00 EDT, Height, 136.08, kg, 12/10/23 11:26:00 EDT, Weight Dosing Start Date: 01/28/24 Status: Ordered Mounjaro 2.5 mg/0.5 mL subcutaneous solution 2.5 mg =, Subcutaneous, every week, rotate injection sites, # 4 EA, 0 Refill(s), Pharmacy: [facility], 149, cm, 12/10/23 11:24:00 EDT, Height, 136.08, kg, 12/10/23 11:26:00 EDT, Weight Dosing Start Date: 12/24/23 Status: Ordered [place] 0.65% nasal spray 1 sprays, Nostril-Both, QID, PRN as needed for dry nasal passages, in each nostril, # 44 mL, 0 Refill(s) Start Date: 02/02/24 Status: Ordered ONETOUCH VERIO FLEX KIT ONETOUCH VERIO FLEX KIT, 1 each by [facility]. (non drug: combo route) route 4 times daily. Start Date: 03/02/22 Status: Ordered ONETOUCH VERIO MARLENE ONETOUCH VERIO MARLENE, Test blood glucose withone new test strip 4 times daily Start Date: 03/02/22 Status: Ordered Portable Back Pack O2 Tank Portable Back Pack O2 Tank, 2.5L pulse dose, Supply, See instructions, # 1 EA, 0 Refill(s) Start Date: 11/07/23 Status: Ordered Probiotics Probiotics, 2 gummies, 0 Refill(s) Start Date: 02/25/24 Status: Ordered Toprol-XL 25 mg oral tablet, extended release 25 mg = 1 tab, Oral, Daily, # 90 tab, 4 Refill(s), Pharmacy: [facility], 149.86, cm, 11/27/23 8:07:00 EDT, Height, 136.08, kg, 11/27/23 8:15:00 EDT, Weight Dosing Start Date: 11/27/23 Status: Ordered torsemide 20 mg oral tablet 3 tab, Oral, BID, TWICE DAIY., # 180 tab, 3 Refill(s), Pharmacy: [facility], 149, cm, 02/02/24 14:33:00 EDT, Height, 139.3, kg, 02/02/24 8:47:00 EDT, Weight Dosing Start Date: 02/06/24 Status: Ordered triamcinolone 0.025% topical cream 1 t[place], Topical, BID, # 100 g, 1 Refill(s), Pharmacy: [facility], 149, cm, 02/02/24 14:33:00 EDT, Height, 135.88, kg, 02/25/24 13:36:00 EDT, Weight Dosing Start Date: 02/25/24 Stop Date: 03/24/24 Status: Ordered Problem List Condition Confirmation Course Effective Dates Status H ealth Status Informant Aortic stenosis Confirmed Active Asthma Confirmed Active Autoimmune thyroiditis Confirmed Active Bilateral lower extremity edema Confirmed Active Constipation Confirmed Active Developmental disorder Confirmed Active Skin rash Confirmed Active Erythroderma Confirmed Active Gout Confirmed [...] Range]: 1 Peripheral Pulse Rate [60-100 bpm] 109 b pm *HI* (02/27/24 9:30 AM) Blood Pressure [90-140/60-90 mmHg] 149/7 0mmHg *HI* (02/27/24 9:30 AM) Mean Arterial Pressure, Cuff [65-140 mmH g] 96 mmHg (02/27/24 9:30 AM) Weight 136.40 kg (02/27/24 9:30 AM) Weight Measured (lbs) 300.71 lb (02/27/24 9:30 AM) Weight Dosing 136.400 kg (02/27/24 9:30 AM) Social History Social History Type Response Tobacco Never tobacco user T obacco Use:. Sex Female Goals Dhara will contact pcp offi ce for non urgent medical issues prior to going to the ER Start Date:02/12/24 End Date: 4 Status:Met Progression:Not Met Dhara's gout left foot pain will resolve in 2 weeks Start Date:02/12/24 End Date:05/14/24 Status:Met Progression:Not Met Dhara'isamar TIR will be at 50% in 3 months Start Da te:02/12/24 End Date:05/14/24 Status:Met Progression:Not Met Physician Outpatient Note * Jaida Lamb RECREATIONAL FACILITIES MOTEL MANAGER: PERFORM, MODIFY Event Display: Office Clinic Note Physician Authored Date: [id number] DHARA MIRAMONTES :1995 Age:29 years Sex:Female Visit Date:02/27/2024 Primary Care Physician: Jamila Archer MD History [...] I last saw in the office on 11/27/2023??for??edema,??aortic stenosis, pulmonary hypertension, and??chest pain.?? We had worked up her chest pain??and ordered??a Lexiscan stress test which we went over her last appointment, this was reassuring and showed no ischemia or prior infarct.?? However prior to this meeting she??was hospitalized twice for pneumonia and flu??and??was ruled in for a type II NSTEMI??with elevated troponin.?? We recommended a more cardioprotective medication regimen with adding on aspirin and??metoprolol.?? Even though her stress test was ne gative,??they are not always effective.?? We decided if she still had symptoms on these medicationswe can go down the route of heart catheterization.?? Her blood pressure was??mildly elevated so I encouraged her to take her readings at home??to determine if we needed more of an antihypertensive there.?? Her torsemide was a therapeutic level??and she had no edema on exam.?? She is here to follow-up. ?? She states she is doing much better than her hospital stay??at the end of January beginning of February.?? It was found that she had pneumonia and she was transferred from [facility] to [facility]??and was in the ICU for about a week.?? She has also, since then,??seen pulmonology??and she has another appointment this . ??She was given an inhaler and diagnosed with asthma, she states??they told me I am getting short of breath because of my asthma and then my heart rate tries to make up for it??and were figuring that stuff out??currently.?? She states that she has been good??since??her hospital stay. ??She denies chest pain, palpitations,??syncope, orthopnea, PND, and edema. ??She states that her breathing is okay, she still gets a little short of breath with going up and down stairs??but this is not new??and remains unchanged. ?? She remains on 60 mg of torsemide twice daily. ??She is taking at 8 AM as well as??between 3 and 4 PM daily. ??She urinates within??30 minutes and then urinates??every 30 minutes for about 5 hours.??She??denies nocturia. ??She is also drinking about 50 ounces a day now??which is a huge cut??from what she was drinking,??and will eat a few deli meats??but is really restricting her sodium intake.??She is not checking her blood pressure at home due to her blood pressure machine breaking??and doesnot have the rojas for a new one quite yet.?? She states that her blood pressure??this week at her doctor's appointment??have been in the 1 teens systolic, and when she was checking her blood pressureat home she was averaging in the 1 teens as well. ?? She is??exercising by doing Jovan 2 times a week??for 15 minutes??each episode.?? She denies signs of ischemia such as chest pain??or shortness of breath during this exercise.?? She states that she feels??well while performing it. Review of Systems A complete review of systems is negative other than as noted in the history of present illness. Physical Exam Vitals & Measurements HR:??109??(Peripheral)?? BP:??149/70?? SpO2:??92%?? WT:??136.40??kg?? HEENT: Normocephalic, atraumatic Respirations: Clear to auscultation [...] lead loss. 05/29/2023:EKG: Sinus rhythm at 96bpm. [place] and intervals within normal limits. 10/13/2023.?? Labs.?? Troponin high of 226, 210.2, 153 11/20/2023 Lexiscan stress test:Likely normal myocardial perfusion, with no compelling evidence of ischemia or prior infarct.??Normal LV function with normal wall motion and ejection fraction greater than 60%. Image quality limits sensitivity and specificity. ??This is particularly notable in the distal inferior wall which appears to have significant diaphragmatic attenuation artifact. 11/27/2023: EKG:Sinus tachycardia at 102 bpm, axes and intervals within normal limits 02/27/24:EKG:Sinus tachycardia at 104 bpm, axes and intervals within normal limits. ?? 28-year-old female with Edema ? Edema:??She has no significant edema on exam today at all and states that she has not seen any at home either.?? The torsemide sounds like it is a therapeutic dose for her at this time and she hasbeen doing quite well with cutting down her fluids and her sodium intake.?? I did encourage her to continue to monitor her edema??and if this changes??to let us know.?? With dietary intake of sodium it will??affect??her edema. ? Chest pain:??She is asymptomatic and doing well since we added the cardioprotective medication regimen.?? She stated that since being on the metoprolol??and high-dose statin??she has had no symptoms of chest pain??at all. ??I did encourage her to be seen in the emergency room for any chest pain or worsening symptoms moving forward.?? I will see her again in 6 months to check in on how she is doing, she knows to call in with any questions or concerns in the meantime.?? It was a pleasure to see Dhara. Clinic Assessment/Plan HTN (hypertension)??I10 Actions: COMPLETED - 35451 Office/Outpatient Visit - Established Patient, Level 3 (20-29 min)., 02/27/24 9:30:00 EDT, HTN (hypertension) INPROCESS - CV ECG Clinic, 02/27/24 9:30:00 EDT, Routine, Reason: Other (please specify), Stop dateand time 02/27/24 9:30:00 EDT, HTN (hypertension), ORD_SET_REQ_DT_RANGE, Cheri's Internal Person Id COMPLETED - Follow-Up Appointment Request CRYSTAL, 02/27/24 9:40:00 EDT, In [facility], 02/27/24 9:40:00 EDT FUTURE - Follow-Up Appointment Request CRYSTAL, *Est. 08/28/24 +/- 28 days, Future Order, In [facility] ?? Goals and Interventions ???Pachecos TIR will be at 50% in 3 months (Barriers: Desire, motivation, Literacy, Medical diseaseprocess, Severity of deficits) Interventions: Carb intake 45-60gm per meal, 15gm snacks Review your Dexcom glucose data to make decisions about insulin and meal choices Take your medications as directed Use your Dexcom sensor data 90% of the time Walk 5 minutes 3x/day ???Pachecos gout left foot pain will resolve in 2 weeks (Barriers: Desire, motivation, Medical disease process, Difficulty concentrating) Interventions: Avoid foods elevated in uric acid. Go to PT as ordered Wear your boot as directed ???Dhara will contact pcp office for non urgent medical issues prior togoing to the ER Interventions: Call pcp or CM Shila with medical issues or concerns Keep all medical appointments with pcp, endocrine, gastro, etc Take medications as directed Problem List/Past Medical History Ongoing Aortic stenosis Asthma Autoimmune thyroiditis Bilateral lower extremity edema Constipation Developmental disorder Erythroderma Gout HLD (hyperlipidemia) HTN (hypertension) Hypothyroidism Idiopathic sleep related non-obstructive alveolar hypoventilation Intermenstrual bleeding - irregular Irregular sleep-wake pattern Localized edema Mediastinal adenopathy Morbid obesity Obstructive sleep apnea syndrome HOLLIE treated with BiPAP Palpitations Periodic limb movement disorder Peripheral edema Pneumonia Pulmonary hypertension Skin rash Steatohepatitis Tachycardia Tension-type headache Thyroid nodule Type 1 diabetes Historical No qualifying data Procedure/Surgical History ???Due 10/2025 (10/31/2022)???ORIF - Open reduction and internal fixation of fracture (12/22/2020)???Adenoidectomy (09/10/2013)???Tonsillectomy (09/10/2003) Medications What How Much When Why Instructions Unchanged albuterol (albuterol 90 mcg/ inh aerosol inhaler) 1 Puffs Inhale (breathe in) Every 6 hours as needed for as needed for wheezing Unchanged allopurinol (allopurinol 300 mg oral tablet) 1 tab Oral (given by mouth) Every day Unchanged aspirin (aspirin 81 mg oral capsule) 1 Capsules Oral (given by mouth) Every 24 hours Type 2 myocardial infarction Unchanged atorvastatin (atorvastatin 40 mg oral tablet) 1 tab Oral (given by mouth) Every day Unchanged cetirizine (cetirizine 10 mg oral tablet) 1 tab Oral (given by mouth) 2 times a day Unchanged colchicine (colchicine 0.6 mg oral tablet) 2 tab Oral (given by mouth) Once at first sign of gout flare followed by 1 tablet in 1 hour ?? Unchanged Durable Medical Equipment for Prescription [...] Oral (given by mouth) Every day Unchanged fluticasone-salmeterol (Advair HFA 115 mcg-21 mcg/ inh inhalation aerosol) 2 Puffs Inhale (breathe in) 2 times a day Unchanged glucagon (Glucagon Emergency Kit for [...] Oral (given by mouth) Every day Unchanged metoprolol (Toprol-XL 25 mg oral tablet, extended release) 1 tab Oral (given by mouth) Every day Type 2 myocardial infarction Unchanged Other Prescription (ONETOUCH VERIO FLEX KIT) 1 each by [facility]. (non drug: combo route) route 4 times daily. ?? Unchanged Other Prescription (ONETOUCH VERIO MARLNEE) Test blood glucose withone new test strip 4 times daily ?? Unchanged Other Prescription (Probiotics) 2 gummies Unchanged sodium chloride nasal ([place] 0.65% nasal spray) 1 Sprays Nasal (into the nose) 4 times a day as needed for as needed for dry nasal passages in each nostril ?? Unchanged tirzepatide (Mounjaro 2.5 mg/ 0.5 mL subcutaneous solution) 2.5 Milligrams Subcutaneous (under the skin) Every week rotate injection sites ?? Unchanged torsemide (torsemide 20 mg oral tablet) 3 tab Oral (given by mouth) 2 times a day TWICE ??DAIY. ?? Unchanged triamcinolone topical (triamcinolone 0.025% topical cream) 1 Application Topical (on the skin) 2 times a day Skin rash Duration: 14 Days Allergies rOPINIRole morphine oxyCODONE Social History Alcohol [...] pediatric vaccine 1995 Recorded Electronically Signed on 02/27/2024 09:58 EDT Jaida Lamb NP Electronically Signed on 02/27/2024 09:59 EDT Jaida Lamb RECREATIONAL FACILITIES MOTEL MANAGER Patient Care team information Care Team Personnel Name: Jamila Archer MD Position: Physician Member Role: Informed Provider Address: Address: [address] [place] [id number] [place] Name: Shila Krueger Position: Ambulatory - RN/CPC CODER (Michael) Member Role: Medical Billing Representative
--- OUTSIDE RECORDS SUMMARY | 2024-02-29 19:10 | XMS_ITS | Continuity of Care Document ---
Author Name Unknown Organization [facility] Address [address] [place] [address] Care Team Providers Care [employer] Director Name Role Phone Jamila Archer Primary Care Physician [phone] Encounter NCT_[facility] [id number] Date(s): 11/16/23 - 11/16/23 [facility] [address] [place] [address] Discharge Disposition: Home Allergies, Adverse Reactions, Alerts Substance Reaction Severity Status morphine Unknown Active oxyCODONE 1 Unknown Active rOPINIRole Severe Active 1repotrs feeling loopy Assessment and Plan Future Appointments Appointment Date:11/26/2023 03:30:00 PM Scheduled Provider:Shila Krueger Location:[facility] [place] Appointment Type:Care Coordination Follow-Up 60 (NCTY) Future Scheduled Tests Laboratory* Basic Metabolic Panel 05/29/23 * CBC w/ Diff 05/01/23 * Comprehensive Metabolic Panel 08/16/23 * Uric Acid 08/16/23 Radiology* XR Chest 2 Views 10/31/23 * XR Spine Lumbosacral 4+ Views 02/27/23 * [...] wheezing, # 8.5 g, 3 Refill(s), Pharmacy: [place] [address], 149, cm, 11/02/23 8:54:00 EST, Height, 137.5, kg, 10/31/23 23:35:00 EST, Weight Dosing Start Date: 11/07/23 Status: Ordered allopurinol 100 mg oral tablet 100 mg = 1 tab, Oral, Daily, # 90 tab, 0 Refill(s), Pharmacy: [place] [address], 149, cm, 10/13/23 16:49:00 EST, Height, 137.15, kg, 10/23/23 9:18:00 EST, Weight Dosing Start Date: 10/23/23 Status: Ordered atorvastatin 40 mg oral tablet 40 mg = 1 tab, Oral, Daily, # 90 tab, 3 Refill(s), Pharmacy: [place] [address], 149, cm, 11/02/23 8:54:00 EST, Height, 137.5, kg, 10/31/23 23:35:00 EST, Weight Dosing Start Date: 11/07/23 Status: Ordered B-D UF III SHORT PEN NEED MIS B-D UF III SHORT PEN NEED MIS, Use one new pen needle for each insulin injection 5 to 7 times per day as directed in case of pump malfunction, Supply, See instructions, # 500 EA, 0 Refill(s), Pharmacy: [place] [address] Start Date: 09/08/22 Status: Ordered cetirizine 10 mg oral tablet 1 tab, Oral, BID, # 60 tab, 0 Refill(s), Pharmacy: [place] [address], 149, cm, 07/08/23 18:54:00 EDT, Height/Length Dosing, [...] higher, # 15 mL, 2 Refill(s), Pharmacy: [facility], 149, cm, 11/02/23 8:54:00 [...] sites, # 4 EA, 0 Refill(s), Pharmacy: [facility], 149, cm, 11/02/23 8:54:00 EST, Height, 137.5, kg, 10/31/23 23:35:00 EST, Weight Dosing Start Date: 11/07/23 Status: Ordered Mounjaro 2.5 mg/0.5 mL subcutaneous solution 2.5 mg =, Subcutaneous, every week, rotate injection sites, # 4 EA, 0 Refill(s), Pharmacy: [facility], 149, cm, 10/13/23 16:49:00 EST, Height, 133, kg, 10/13/23 16:54:00 EST, Weight Dosing Start Date: 10/15/23 Status: Ordered ONETOUCH VERIO FLEX KIT ONETOUCH VERIO FLEX KIT[place] [facility] (non drug: combo route) route 4 times daily. Start Date: 03/02/22 Status: Ordered ONETOUCH VERIO MARLENE ONETOUCH VERIO MARLENE, Test blood glucose withone new test strip 4 times daily Start Date: 03/02/22 Status: Ordered Portable Back Pack O2 Tank Portable Back Pack O2 Tank, 2.5L pulse dose, Supply, See instructions, # 1 EA, 0 Refill(s) Start Date: 11/07/23 Status: Ordered Tamiflu 75 mg oral capsule 75 mg = 1 cap, Oral, BID, # 6 cap, 0 Refill(s), Pharmacy: [facility], 149, cm, 11/02/23 8:54:00 EST, Height, 137.5, kg, 10/31/23 23:35:00 EST, Weight Dosing Start Date: 11/02/23 Stop Date: 11/05/23 Status: Ordered torsemide 20 mg oral tablet 3 tab, Oral, BID, TWICE DAIY., # 180 tab, 3 Refill(s), Pharmacy: [facility], 149, cm, 07/08/23 18:54:00 EDT, Height/Length Dosing, 133.2, kg, 07/25/23 10:54:00 EST, Weight Dosing Start Date: 08/06/23 Status: Ordered [facility] Probiotic [facility] Probiotic, 1, [...] Confirmed Active Type 1 diabetes Confirmed Active Type 2 diabetes mellitus Confirmed Active 1Problem added by Rule ([id number]) [...] Physician Member Role: Informed Provider Address: Address: [address] [place] [address] [address] Name: Shila Krueger Position: Ambulatory - RN/SHOVEL OPERATOR ([facility]) Member Role: Jailor Care Team Related Persons Name: EMILIO PATHAK Address: Home [address] [place], [phone] Name: ELLIS GRAMAJO Address: Home [address] [place], [phone]
--- OUTSIDE RECORDS SUMMARY | 2024-02-29 19:10 | XMS_ITS | Continuity of Care Document ---
Author Name Unknown Organization [facility] Address [address] [place] [address] Care Team Providers Care Strategic Partnership Specialist Name Role Phone Jamila Archer Primary Care Physician [phone] [facility] Date[facility]s): 10/12/23 - 10/12/[address] [address] Encounter Diagnosis Hyperglycemia(Discharge Diagnosis) - 10/12/23 Discharge Disposition: Home or Self Care Attending Physician: Arnold Don MD Admitting Physician: Arnold Don MD Allergies, Adverse Reactions, Alerts Substance Reaction Severity Status morphine Unknown Active rOPINIRole Severe Active Assessment and Plan Extracted from: Title:ED Provider Note Author:Arnold Don MD Date:10/12/23 Assessment/Plan 1.??Hyperglycemia??R73.9 Ordered: ondansetron 4 mg oral tablet, disintegrating, 4 mg = 1 tab, Oral, TID, X 3 days, # 9 tab, 0 Refill(s), 10/15/23 17:08:00 EST, Pharmacy: [id number], 149, cm, 07/08/23 18:54:00 EDT, Height/Length Dosing, 133.2, kg, 07/25/23 10:54:00 EST, Weight Dosing Discharge Patient, 10/12/23 16:59:00 EST, Home Independently, Constant Indicator ?? Orders: Clostridium Difficile, Stool, Stat Collect, 10/12/23 14:57:00 EST, Once, Nurse collect, Print Label Fecal Bacterial Pathogens by PCR [facility], Stool, Stat Collect, 10/12/23 14:57:00 EST, Once, Nurse collect, Print Label Patient Education Hyperglycemia Follow Up With When Contact Information Jamila Archer MD [address] [place] [address] [place] [address] ?? Additional Instructions: Keep your appointment on 10/15 Future Appointments Future Scheduled Tests Laboratory* Basic Metabolic Panel 05/29/23 * CBC w/ Diff 05/01/23 * Comprehensive Metabolic Panel 08/16/23 * Uric Acid 08/16/23 Radiology* XR Spine Lumbosacral 4+ Views 02/27/23 * NM Myocardial Rest Stress 2 Day Protocol 05/29/23 Functional Status 10/12/23 Family Member Travel History No recent t [...] instructions, # 500 EA, 0 Refill(s), Pharmacy: [id number] Start Date: 09/08/22 Status: Ordered cetirizine 10 mg oral tablet 1 tab, Oral, BID, # 60 tab, 0 Refill(s), Pharmacy: [facility], 149, cm, 07/08/23 18:54:00 EDT, Height/Length Dosing, 133.2, kg, 07/25/23 10:54:00 EST, Weight Dosing Start Date: 09/12/23 Status: Ordered chlorthalidone 25 mg oral tablet 1 tab, Oral, Daily, # 90 tab, 3 Refill(s), Pharmacy: [place] [facility] [id number], 149, cm, 07/08/23 18:54:00 EDT, Height/Length Dosing, 133.2, kg, 07/25/23 10:54:00 EST, Weight Dosing Start Date: 08/11/23 Status: Ordered colchicine 0.6 mg oral tablet 0.6 mg = 1 tab, Oral, BID, Take 2 tablets for 1.2mg followed by one tablet 0.6 mg one hour later today. Days 2-10 take one tablet twice a day, # 21 tab, 0 Refill(s), Pharmacy: [facility] [address], 149, cm, 07/08/23 18:54:00 EDT, Height/Length Dosing, 133.2, kg, 07/25/23 10:54:00 EST, Weight Dosing Start Date: 09/06/23 Status: Ordered Dexcom G6 sensors Dexcom G6 sensors, To check BS 4x daily, Supply, See instructions, # 6 EA, 0 Refill(s), Pharmacy: [facility] [id number] Start Date: 11/24/22 Status: Ordered Dexcom Sensors G6, change every 10 days Dexcom Sensors G6, change every 10 days, Use for BS monitoring, Supply, See instructions, # 4 EA, 3Refill(s), Pharmacy: [facility] [id number] Start Date: 01/16/23 Status: Ordered Dexcom Transmitter, change every 3 months Dexcom Transmitter, change every 3 months, Use to monitor BS, Supply, See instructions, # 1 EA, 3 Refill(s), Pharmacy: [facility] [id number] Start Date: 04/11/23 Status: Ordered elderberry 350 [...] BID, # 60 tab, 0 Refill(s), Pharmacy: [facility], 149, cm, 07/08/23 18:54:00 EDT, Height/Length Dosing, 133.2, kg, 07/25/23 10:54:00 EST, Weight Dosing Start Date: 08/16/23 Status: Ordered ondansetron 4 mg oral tablet 4 mg = 1 tab, Oral, every 8 hr, # 20 tab, 0 Refill(s), 10/16/23 9:30:00 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, Pharmacy: [facility], 149, cm, 07/08/23 18:54:00 EDT, Height/Length Dosing, 133.2, kg, 07/25/23 10:54:00 EST, Weight Dosing Start Date: 10/11/23 Stop Date: 10/16/23 Status: Ordered ondansetron 4 mg oral tablet, disintegrating 4 mg = 1 tab, Oral, TID, X 3 days, # 9 tab, 0 Refill(s), 10/15/23 4:08:00 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, Pharmacy: [facility], 149, cm, 07/08/23 18:54:00 EDT, Height/Length Dosing, 133.2, kg, 07/25/23 10:54:00 EST, Weight Dosing Start Date: 10/12/23 Stop Date: 10/15/23 Status: Ordered ONETOUCH VERIO FLEX [...] DAIY., # 180 tab, 3 Refill(s), Pharmacy: [facility], 149, cm, 07/08/23 18:54:00 EDT, Height/Length Dosing, 133.2, kg, 07/25/23 10:54:00 EST, Weight Dosing Start Date: 08/06/23 Status: Ordered Mental Status 10/12/23 Eye Opening Response [place] Spontaneous ly Best Verbal Response [place] Oriented Best Motor Response [place] Obeys comman ds [place] Coma Score 15 Problem List Condition Confirmation Course Effective Dates [...] Laboratory List Name Date Basic Metabolic Panel 10/12/23 Beta Hydroxybutyrate 10/12/23 Blood Gas Venous 10/12/23 CBC w/ Diff 10/12/23 Hepatic Function Panel 10/12/23 Lipase Level 10/12/23 Magnesium Level 10/12/23 TSH w/ Rflx to Free T4 10/12/23 Influenza A/B (ID NOW) 10/12/23 SARS-CoV-2 (COVID-19) RNA (ID Now) 4 Automated Diff 10/12/23 GGT 10/12/23 Most recent to oldest [Reference Range]: 1 WBC [5.0-10.0 x10^3/mcL] 7.1 x10^3/mcL (10/12/23 1:44 PM) RBC [4.1-5.3 x10^6/mcL] 4.3 x10^6/mcL (10/12/23 1:44 PM) Neutro Auto [40.0-75.0 %] 68.9 % (10/12/23 1:44 PM) Lymph Auto [20.0-50.0 %] 24.3 % (10/12/23 1:44 PM) Douglas Auto [2.0-15.0 %] 4.4 % (10/12/23 1:44 PM) Basophil Auto [0.0-1.0 %] 0.3 % (10/12/23 1:44 PM) BUN [7-18 mg/dL] 24 mg/dL *HI* (10/12/23 1:44 PM) Glucose Level [74-106 mg/dL] 339 mg/dL *HI* (10/12/23 1:44 PM) Potassium Level [3.5-5.1 mmol/L] 4.3 mmo l/L (10/12/23 1:44 PM) MCV [80.0-96.0 fL] 90.9 fL (10/12/23 1:44 PM) CO2 Total Venous 27 mmol/L *NA* (10/12/23 1:44 PM) HCO3 Venous [22-30 mmol/L] 25 mmol/L (10/12/23 1:44 PM) AST [15-37 unit/L] 156 unit/L *HI* (10/12/23 1:44 PM) ALT [14-59 unit/L] 218 unit/L *HI* (10/12/23 1:44 PM) MCHC [31.0-35.0 g/dL] 32.6 g/dL (10/12/23 1:44 PM) Sodium Level [136-145 mmol/L] 133 mmol/L *LOW* (10/12/23 1:44 PM) Hct [37.0-47.0 %] 39.0 % (10/12/23 1:44 PM) Lipase Level [16-77 unit/L] 12 unit/L 1 *LOW* (10/12/23 1:44 PM) Calcium Level [8.5-10.1 mg/dL] 8.5 mg/dL (10/12/23 1:44 PM) Albumin Level [3.4-5.0 g/dL] 3.2 g/dL *LOW* (10/12/23 1:44 PM) Protein Total [6.4-8.2 g/dL] 7.7 g/dL (10/12/23 1:44 PM) MCH [26.0-32.0 pg] 29.6 pg (10/12/23 1:44 PM) Magnesium Level [1.8-2.4 mg/dL] 1.9 mg/d L (10/12/23 1:44 PM) Neutro Absolute 4.9 x10^3/mcL *NA* (10/12/23 1:44 PM) Bilirubin Total [0.2-1.0 mg/dL] 1.1 mg/d L *HI* (10/12/23 1:44 PM) Hgb [12.0-16.0 g/dL] 12.7 g/dL (10/12/23 1:44 PM) Alk Phos [46-146 unit/L] 246 unit/L *HI* (10/12/23 1:44 PM) pCO2 Mirza [33-47 mmHg] 51 mmHg *HI* (10/12/23 1:44 PM) Bilirubin Direct [0.00-0.20 mg/dL] 0.47 mg/dL *HI* (10/12/23 1:44 PM) Platelets [130-450 x10^3/mcL] 246 x10^3/ mcL (10/12/23 1:44 PM) CO2 [21-32 mmol/L] 25 mmol/L (10/12/23 1:44 PM) TSH [0.358-3.740 mcIntlUnit/mL] 1.252 mc IntlUnit/mL (10/12/23 1:44 PM) pO2 Mirza 42 mmHg *NA* (10/12/23 1:44 PM) GGT [5-55 unit/L] 1822 unit/L *HI* (10/12/23 1:44 PM) pH Mirza [7.32-7.43 pH unit(s)] 7.31 pH un it(s) *LOW* (10/12/23 1:44 PM) O2 Sat Mirza 71 % *NA* (10/12/23 1:44 PM) eGFR Non-AA [>=60] 79 (10/12/23 1:44 PM) eGFR AA [>=60] 79 (10/12/23 1:44 PM) Base Excess Venous -1.6 mmol/L *NA* (10/12/23 1:44 PM) Chloride Level [98-107 mmol/L] 98 mmol/L (10/12/23 1:44 PM) RDW-CV [11.5-14.5 %] 14.7 % *HI* (10/12/23 1:44 PM) Imm Gran Auto [0.0-0.9 %] 1.0 % *HI* (10/12/23 1:44 PM) Influenza A -IDNOW Not Detected (10/12/23 1:42 PM) Influenza B -IDNOW Not Detected (10/12/23 1:42 PM) Creatinine Level [0.55-1.02 mg/dL] 1.01 mg/dL (10/12/23 1:44 PM) SARS-CoV-2 (COVID-19) RNA (ID Now) [Not Detected] Not Detected (10/12/23 1:42 PM) Employed 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 Unknown (10/12/23 1:42 PM) Symptomatic as defined by CDC? Unknown (10/12/23 1:42 PM) In ICU? Unknown (10/12/23 1:42 PM) Group care resident? Unknown (10/12/23 1:42 PM) status? Unknown (10/12/23 1:42 PM) Beta-Hydroxybutyrate [0.0-0.5 mmol/L] 0. 3 mmol/L (10/12/23 1:44 PM) Eos, Auto [1.0-6.0 %] 1.1 % (10/12/23 1:44 PM) 1Interpretive Data: Effective 06/29/22, [facility] has switched to a revised Lipase test.Note new ReferenceRange. Vital Signs Most recent to oldest [Reference Range]: 1 2 3 Temperature Temporal Artery [36-38 Deg C] 37.4 Deg C (10/12/23 1:23 PM) Peripheral Pulse Rate [60-100 bpm] 108 bpm *HI* (10/12/23 5:11 PM) 108 bpm *HI* (10/12/23 4:41 PM) 107 bpm *HI* (10/12/23 4:24 PM) Heart Rate Monitored [60-100 bpm] 108 bpm *HI* (10/12/23 5:11 PM) 107 bpm *HI* (10/12/23 4:41 PM) 108 bpm *HI* (10/12/23 4:24 PM) Respiratory Rate [12-24 br/min] 23 br/min (10/12/23 5:11 PM) 33 br/min *HI* (10/12/23 4:41 PM) 23 br/min (10/12/23 4:24 PM) Blood Pressure [90-140/60-90 mmHg] 128/70mmHg (10/12/23 5:11 PM) 117/72mmHg (10/12/23 4:41 PM) 112/66mmHg (10/12/23 4:24 PM) Mean Arterial Pressure, Cuff [70-110 mmHg] 89 mmHg (10/12/23 5:11 PM) 87 mmHg (10/12/23 4:41 PM) 81 mmHg (10/12/23 4:24 PM) Weight Estimated 136 kg (10/12/23:23 PM) Body Mass Index Estimated 61.26 kg/m2 (10/12/23 1:23 PM) Height/Length Estimated 149 cm (10/12/23 1:23 PM) Social History Social History Type Response Tobacco Never tobacco user T obacco Use:. Sex Female Hospital Discharge Instructions Patient Education 10/12/2023 15:56:28 Hyperglycemia Hyperglycemia Hyperglycemia occurs when the level of sugar (glucose) in the blood is too high. Glucose is a type of sugar that provides the body's main source of energy. Certain hormones (insulin and glucagon) control the level of glucose in the blood. Insulin lowers blood glucose, and glucagon increases blood glucose. Hyperglycemia can result from not having enough insulin in the bloodstream, or from the bodynot responding normally to insulin. Hyperglycemia occurs most often in people who have diabetes (diabetes mellitus), but it can happen in people who do not have diabetes. It can develop quickly, and it can be life-threatening if it causes you to become severely dehydrated (diabetic ketoacidosis or hyperglycemic hyperosmolar state). Severe hyperglycemia is a medical emergency. For most people with diabetes, a blood glucose level above 240 mg/dL is considered hyperglycemia. What are the causes? If you have diabetes, hyperglycemia may be caused by: ??? Medicines that increase blood glucose or affect your diabetes control. ??? Getting less physical activity. ??? Eating more than planned. ??? Being sick or injured, having an infection, or having surgery. ??? Stress. ??? Not giving yourself enough insulin (if you are taking insulin). If you have undiagnosed diabetes, this may be the reason you have hyperglycemia. If you do not have diabetes, hyperglycemia may be caused by: ??? Certain medicines, including: ??? Steroid medicines. ??? Beta-blockers. ??? Epinephrine. ??? Thiazide diuretics. ??? Stress. ??? Having a serious illness, an infection, or surgery. ??? Diseases of the pancreas. What increases the risk? Hyperglycemia is more likely to develop in people who have risk factors for diabetes, such as: ??? Having a family member with diabetes. ??? Certain conditions in which the body's disease-fighting system (immune system) attacks itself (autoimmune disorders). ??? Being overweight or obese. ??? Having an inactive (sedentary) lifestyle. ??? Having been diagnosed with insulin resistance. ??? Having a history of prediabetes, gestational diabetes, or polycystic ovarian syndrome (PCOS). What are the signs or symptoms? Hyperglycemia may not cause any symptoms. If you do have symptoms, they may include: ??? Increased thirst. ??? Needing to urinate more often than usual. ??? Hunger. ??? Feeling very tired. ??? Blurry vision. Other symptoms may develop if hyperglycemia gets worse, such as: ??? Dry mouth. ??? Abdominal pain. ??? Loss of appetite. ??? Fruity-smelling breath. ??? Weakness. ??? Unexpected weight loss. ??? Tingling or numbness in the hands or feet. ??? Headache. ??? Cuts or bruises that are slow to heal. How is this diagnosed? Hyperglycemia is diagnosed with a blood test to measure your blood glucose level. This blood test is usually done while you are having symptoms. Your health care provider may also do a physical exam and review your medical history. You may have more tests to determine the cause of your hyperglycemia, such as: ??? A fasting blood glucose (FBG) test. You will not be allowed to eat (you will fast) for at least8 hours before a blood sample is taken. ??? An A1C blood test. This provides information about blood glucose control over the previous 2???3 months. ??? An oral glucose tolerance test (OGTT). This measures your blood glucose at two times: ??? After fasting. This is your baseline blood glucose level. ??? 2 hours after drinking a beverage that contains glucose. How is this treated? Treatment depends on the cause of your hyperglycemia. Treatment may include: ??? Taking medicine to regulate your blood glucose levels. If you take insulin or other diabetes medicines, your medicine or dosage may be adjusted. ??? Lifestyle changes, such as exercising more, eating healthier foods, or losing weight. ??? Treating an illness or infection. ??? Checking your blood glucose more often. ??? Stopping or reducing steroid medicines. If your hyperglycemia becomes severe and it results in diabetic ketoacidosis or hyperglycemic hyperosmolar state, you must be hospitalized and given IV fluids and IV insulin. Follow these instructions at home: General instructions ??? Take [id number] and prescription medicines only as told by your health care provider. ??? Do not use any products that contain nicotine or tobacco. These products include cigarettes, chewing tobacco, and vaping devices, such as e-cigarettes. If you need help quitting, ask your health care provider. ??? If you drink alcohol: ??? Limit [...] glass of hard liquor (44 mL). ??? Learn to manage stress. If you need help with this, ask your health care provider. ??? Do exercises as told by your health care provider. ??? Keep all follow-up visits. This is important. Eating and drinking ??? Maintain a healthy weight. ??? Stay hydrated, especially when you exercise, get sick, or spend time in hot temperatures. ??? Drink enough fluid to keep your urine pale yellow. If you have diabetes: ??? Know the symptoms of hyperglycemia. ??? Follow your diabetes management plan as told by your health care provider. Make sure you: ??? Take your insulin and medicines as told. ??? Follow your exercise plan. ??? Follow your meal plan. Eat on time, and do not skip meals. ??? Check your blood glucose as often as told. Make sure to check your blood glucose before and after exercise. If you exercise longer or in a different way, check your blood glucose more often. ??? Follow your sick day plan whenever you cannot eat or drink normally. Make this plan in advance with your health care provider. ??? Share your diabetes management plan with people in your workplace, school, and household. ??? Check your urine for ketones when you are ill and as told by your health care provider. ??? Carry a medical alert card or wear medical alert jewelry. Where to find more information [place] [employer]: www.diabetes.org Contact a health care provider if: ??? Your blood glucose is at or above 240 mg/dL (13.3 mmol/L) for 2 days in a row. ??? You have problems keeping your blood glucose in your target range. ??? You have frequent episodes of hyperglycemia. ??? You have signs of illness, such as nausea, vomiting, or fever. Get help right away if: ??? Your blood glucose monitor reads high even when you are taking insulin. ??? You have trouble breathing. ??? You have a change in how you think, feel, or act (mental status). ??? You have nausea or vomiting that does not go away. These symptoms may represent a serious problem that is an emergency. Do not wait to see if the symptoms will go away. Get medical help right away. Call your local emergency services (911 in the [place] Do not drive yourself to the hospital. Summary ??? Hyperglycemia occurs when the level of sugar (glucose) in the blood is too high. ??? Hyperglycemia can happen with or without diabetes, and severe hyperglycemia can be life-threatening. ??? Hyperglycemia is diagnosed with a blood test to measure your blood glucose level. This blood test is usually done while you are having symptoms. Your health care provider may also do a physical exam and review your medical history. ??? If you have diabetes, follow your diabetes management plan as told by your health care provider. ??? Contact your health care provider if you have problems keeping your blood glucose in your target range. This information is not intended to replace advice given to you by your health care provider. Make sure you discuss any questions you have with your health care provider. Document Revised: 06/10/2021 Document Reviewed: 06/10/2021 [employer] Patient Education ?? 2022 [employer]. Follow Up Care 10/12/2023 13:23:40 With:Jamila Archer MD Address: [address] [place] [id number]- When: Unknown Comments:Keep your appointment on 10/15 Physician Emergency department Note * Arnold Don MD: PERFORM Event Display: ED Note Physician Authored Date: [id number] MARIELOS MIRAMONTES :1995 Age:28 years Sex:Female Visit Date:10/12/2023 Primary Care Physician: Jamila Archer MD Basic Information Time Seen: rAnold Don MD / 10/12/2023 13:25 Chief Complaint Today I woke up with massive diarrhea, my sugars were super low last night, and now they are reading 'Hi. Pt flushed on arrival. Oxygen 90-92% onRA History Of Present Illness: 28-year-old lady history significant for but not limited to??hyperlipidemia, hypertension, hypothyroidism, pulmonary hypertension, type 1 diabetes presents today for evaluation of hyperglycemia.?? Patient was seen yesterday in the emergency department for hypoglycemia??in the context of acute illness, nausea, vomiting, diarrhea. ??She was treated symptomatically, had improvement and was discharged home. ??She reports significant diarrhea since going home??and now her sugars are reading high.?? She states that her whole body hurts but she does not have any focal pain Review of Systems: As in HPI Physical Exam Vitals & Measurements T:??37.4?C ??(Temporal Artery)?? HR:??108??(Peripheral)?? HR:??108??(Monitored)?? RR:??23?? BP:??128/70?? SpO2:??90%?? HT:??149??cm?? WT:??136??kg??(Estimated)?? BMI:??61.26?? Pain Score:??3?? O2 Flow Rate:??2?? O2 Therapy:??Room air?? Vital signs and nursing notes reviewed ?? CONSTITUTIONAL: _No acute distress SKIN: _Warm, dry, and intact without rash EYES: _extraocular movements are grossly intact, clear conjunctiva HENT: _Normocephalic, atraumatic, moist mucus membranes NECK: _no obvious swelling, normal range of motion PULMONARY: _normal chest rise and fall, lungs are clear bilaterally,??no respiratory distress or stridor CARDIOVASCULAR: _regular rate, distal extremities are warm and well perfused GASTROINTESTINAL: _ habitus limited exam but without overt tenderness GENITOURINARY: _deferred NEUROLOGIC: _normal speech, moves all extremities with equal strength and coordination MUSCULOSKELETAL: _no gross deformities, atraumatic PSYCHIATRIC: _normal mood and affect ? Medical Decision Making: On arrival, patient is noted to be hemodynamically stable, afebrile, no evidence of tachycardia or tachypnea on my exam.?? She did fall asleep and had some O2 sats in the mid 80s. Has sleep apnea anduses CPAP. Wiith good waveform/on her ear and awake, saturation in the mid to high 90s.?? Suspect??labile blood sugars secondary to acute GI illness. ??Will plan to recheck labs to screen for DKA??with further??workup pending. ??Will provide further fluids given reported ongoing diarrhea Procedure No Qualifying Data Reexamination/Reevaluation Labs reviewed???hyperglycemia is noted at 339, normal beta hydroxybutyrate.?? No significant leukocytosis or anemia.?? Renal function preserved and electrolytes are overall reassuring.?? She does have a transaminitis which looking back through her chart is actually fairly stable compared to March 2023.?? She does notably deny any focal abdominal pain.?? Her urinalysis and urine reviewed from yesterday are both normal/negative.?? TSH is normal. ?? With elevation in LFTs, suspect this is likely a chronic finding but we will check CT abdomen/pelvis to exclude new biliary disease as well as CT angio chest given her desaturation earlier, suspect this is more likely sleep apnea related though as again her oxygenation has been reasonable when awake. ?? Independent review of CT chest does not show obvious PE or pneumonia.?? Radiology report is in agreement.?? CT abdomen/pelvis is without acute findings, please see radiology report for full details. ?? During roughly 3.5-hour observation in the emergency department, patient has had no diarrhea or vomiting.?? She does note previous history of C. difficile although has not had recent exposure or recent antibiotics.?? Will provide with stool kit to bring back to the lab.?? Further Zofran as needed.?? She already has a primary care appointment scheduled 10/15 which I think is reasonable follow- up interval.?? Reviewed return precautions. ?? Medical Decision-Making: Clinical lab tests: ordered and reviewed -??Yes Tests in the radiology section of CPT??: ordered and reviewed -??Yes Tests in the medicine section of CPT??: ordered and reviewed -??Yes Review and summarize past medical records -??Yes Independent visualization of images, tracings, or specimens? Yes Assessment/Plan 1.??Hyperglycemia??R73.9 Ordered: ondansetron 4 mg oral tablet, disintegrating, 4 mg = 1 tab, Oral, TID, X 3 days, # 9 tab, 0 Refill(s), 10/15/23 17:08:00 EST, Pharmacy: [id number], 149, cm, 07/08/23 18:54:00 EDT, Height/Length Dosing, 133.2, kg, 07/25/23 10:54:00 EST, Weight Dosing Discharge Patient, 10/12/23 16:59:00 EST, Home Independently, Constant Indicator ?? Orders: Clostridium Difficile, Stool, Stat Collect, 10/12/23 14:57:00 EST, Once, Nurse collect, Print Label Fecal Bacterial Pathogens by PCR [facility], Stool, Stat Collect, 10/12/23 14:57:00 EST, Once, Nurse collect, Print Label Patient Education Hyperglycemia Follow Up With When Contact Information Jamila Archer MD [address] [place] [address] [place] [address]- Additional Instructions: Keep your appointment on 10/15 Medication Reconciliation Changed ondansetron (ondansetron 4 mg oral tablet)1 tab Oral (given by mouth) every 8 hours. Refills: 0. ?? ondansetron (ondansetron 4 mg oral tablet, disintegrating)1 tab Oral (given by mouth) 3 times a dayfor 3 Days. Refills: 0. ?? Unchanged atorvastatin (atorvastatin 40 [...] months)Use to monitor BS. Refills: 3. ?? [id number] Milligrams Oral (given by mouth) every day. [...] bedtime. correction factor of 50 units. ?? Micrograms Oral (given by mouth) every day. ?? naproxen (naproxen 500 mg oral delayed release tablet)1 tab Oral (given by mouth) 2 times a day. Refills: 0. ?? Other Prescription (ONETOUCH VERIO FLEX KIT)[facility] [...] fracture (12/22/2020)???Adenoidectomy (09/10/2013)???Tonsillectomy (09/10/2003) Medication Administration Given sodium chloride 0.9% bolus, 1000 mL, Hydration Bolus Toradol, 15 mg, IV Push Allergies rOPINIRole morphine Social [...] and Differential?? LATEST RESULTS?? HISTORICAL RESULTS?? WBC?? 10/12/23 13:44?? 7.1?? 10/11/23?? 7.7?? RBC?? 10/12/23 13:44?? 4.3?? 10/11/23?? 4.7?? Hgb?? 10/12/23 13:44?? 12.7?? 10/11/23?? 13.9?? Hct?? 10/12/23 13:44?? 39.0?? 10/11/23?? 43.2?? MCV?? 10/12/23 13:44?? 90.9?? 10/11/23?? 91.3?? MCH?? 10/12/23 13:44?? 29.6?? 10/11/23?? 29.4?? MCHC?? 10/12/23 13:44?? 32.6?? 10/11/23?? 32.2?? RDW-CV?? 10/12/23 13:44?? 14.7 ??High?? 10/11/23?? 13.9?? Platelets?? 10/12/23 13:44?? 246?? 10/11/23?? 273?? Neutro Auto?? 10/12/23 13:44?? 68.9?? 08/16/23?? 57.8?? Lymph Auto?? 10/12/23 13:44?? 24.3?? 08/16/23?? 29.5?? Douglas Auto?? 10/12/23 13:44?? 4.4?? 08/16/23?? 4.2?? Eos, Auto?? 10/12/23 13:44?? 1.1?? 08/16/23?? 7.4 ??High?? Basophil Auto?? 10/12/23 13:44?? 0.3?? 08/16/23?? 0.6?? Imm Gran Auto?? 10/12/23 13:44?? 1.0 ??High?? 08/16/23?? 0.5?? Neutro Absolute?? 10/12/23 13:44?? 4.9?? 08/16/23?? 5.1? Blood Gases?? LATEST RESULTS?? HISTORICAL RESULTS?? pH Mirza?? 10/12/23 13:44?? 7.31 ??Low?? 10/27/22?? 7.32?? pCO2 Mirza?? 10/12/23 13:44?? 51 ??High?? 10/27/22?? 62 ??High?? pO2 Mirza?? 10/12/23 13:44?? 42?? 10/27/22?? 25?? HCO3 Venous?? 10/12/23 13:44?? 25?? 10/27/22?? 32 ??High?? O2 Sat Mirza?? 10/12/23 13:44?? 71?? 10/27/22?? 38?? CO2 Total Venous?? 10/12/23 13:44?? 27?? 10/27/22?? 34?? Base Excess Venous?? 10/12/23 13:44?? -1.6?? 10/27/22?? 3.5? Routine Chemistry?? LATEST RESULTS?? HISTORICAL RESULTS?? Sodium Level?? 10/12/23 13:44?? 133 ??Low?? 10/11/23?? 139?? Potassium Level?? 10/12/23 13:44?? 4.3?? 10/11/23?? 4.5?? Chloride Level?? 10/12/23 13:44?? 98?? 10/11/23?? 99?? CO2?? 10/12/23 13:44?? 25?? 10/11/23?? 30?? Alk Phos?? 10/12/23 13:44?? 246 ??High?? 10/11/23?? 257 ??High?? AST?? 10/12/23 13:44?? 156 ??High?? 10/11/23?? 183 ??High?? ALT?? 10/12/23 13:44?? 218 ??High?? 10/11/23?? 238 ??High?? BUN?? 10/12/23 13:44?? 24 ??High?? 10/11/23?? 19 ??High?? Glucose Level?? 10/12/23 13:44?? 339 ??High?? 10/11/23?? 81?? Creatinine Level?? 10/12/23 13:44?? 1.01?? 10/11/23?? 0.74?? eGFR AA?? 10/12/23 13:44?? 79?? 10/11/23?? 114?? eGFR Non-AA?? 10/12/23 13:44?? 79?? 10/11/23?? 114?? Calcium Level?? 10/12/23 13:44?? 8.5?? 10/11/23?? 9.5?? Protein Total?? 10/12/23 13:44?? 7.7?? 10/11/23?? 8.4 ??High?? Albumin Level?? 10/12/23 13:44?? 3.2 ??Low?? 10/11/23?? 3.7?? Bilirubin Total?? 10/12/23 13:44?? 1.1 ??High?? 10/11/23?? 0.5?? Bilirubin Direct?? 10/12/23 13:44?? 0.47 ??High? GGT?? 10/12/23 13:44?? 1822 ??High? Beta-Hydroxybutyrate?? 10/12/23 13:44?? 0.3?? 03/22/23?? 0.2?? Lipase Level?? 10/12/23 13:44?? 12 ??Low?? 10/11/23?? 16?? Magnesium Level?? 10/12/23 13:44?? 1.9?? 08/16/23?? 1.9? Thyroid Studies?? LATEST RESULTS?? HISTORICAL RESULTS?? TSH?? 10/12/23 13:44?? 1.252?? 10/26/22?? 6.932 ??High? Infectious Disease?? LATEST RESULTS?? HISTORICAL RESULTS?? Influenza A -IDNOW?? 10/12/23 13:42?? Not Detected? Influenza B -IDNOW?? 10/12/23 13:42?? Not Detected? SARS-CoV-2 (COVID-19) RNA (ID Now)?? 10/12/23 13:42?? Not Detected?? 07/08/23?? Not Detected?? Employed 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?? 10/12/23 13:42?? Unknown?? 12/30/22?? No?? Symptomatic as defined by CDC??? 10/12/23 13:42?? Unknown?? 12/30/22?? No?? In ICU??? 10/12/23 13:42?? Unknown?? 12/30/22?? No?? Group care resident??? 10/12/23 13:42?? Unknown?? 12/30/22?? No?? status??? 10/12/23 13:42?? Unknown?? 12/30/22?? Unknown? Electronically Signed on 10/12/23 06:14 PM Arnold Don MD Emergency department Discharge instructions * Arnold Don MD: PERFORM Event Display: ED Discharge Information Authored Date: [id number] MARIELOS MIRAMONTES :1995 Age:28 years Sex:Female Visit Date:10/12/2023 Primary Care Physician: Jamila Archer MD Discharge Instructions We would like to thank you for allowing us to assist you with your healthcare needs. The following includes patient education materials and information regarding your injury/illness. Diagnosis from Today's Visit Hyperglycemia Discharge Vitals Temperature??(Temporal Artery) 99.3 ??F (37.4 ??C) Heart Rate??(Peripheral) 108 Heart Rate??(Monitored) 107 Respiratory Rate?? 33 Blood Pressure?? 117/72?? Height?? 58.66 in (149 cm) Weight??(Estimated) 299.88 lb (136 kg) BMI?? 61.26 Allergies rOPINIRole morphine What to Do Next Instructions from Your Care Team Your labs today??did show initially??high blood sugar but no signs of DKA. ??As we discussed, some your liver tests were elevated but the CT scan on your abdomen/pelvis did not show any acute/new changes.?? The CT scan of your chest did not show any signs of a blood clot in the lungs or a pneumonia.?? Please continue to take your home medications as prescribed and follow-up with your regular doctor in the next week or so. ??You may continue to use the ondansetron if you are having any ongoing nausea. ??Return the stool sample to the lab as soon as you are able??so that we can check for C. difficile and for other causes of infectious diarrhea.?? Return to the emergency department for any newor concerning symptoms including any??new pain, persistently high or low blood sugars,??fever, trouble breathing,??or if they have any other concerns. You Need to Schedule the Following Appointments Follow Up with??Jamila Archer MD Why: Keep your appointment on 10/15 Where: [address] [place], [place] [address] [address]- Upcoming Scheduled Appointments Sunday 3:40 PM EST ?? With: Jamila Archer MD Where: [facility] [address] [address] Status: Confirmed Sunday 8:20 AM EST ?? With: Jaida Lamb CAR BODY DESIGNER Where: [facility] [address] [place] [address] Status: Confirmed Sunday 4:30 PM EST ?? With: Shila Krueger Where: [address] [address] Status: Confirmed Sunday 9:00 AM EST ?? With: Jamila Archer MD Where: [facility] [address] [address] Status: Confirmed Sunday 9:30 AM EST ?? With: Shila Krueger Where: [facility] [address] [address] Status: Confirmed Sunday 3:30 PM EST ?? With: Sully Singleton NP Where: [facility] [address] [place] [address] Status: Confirmed Sunday 10:00 AM EDT ?? Where: [facility] Status: Confirmed You were treated today [...] Much When Why Instructions Next Dose Unchanged atorvastatin (atorvastatin 40 mg oral tablet) [...] by mouth) 2 times a day Unchanged ondansetron (ondansetron 4 mg oral tablet) 1 tab Oral (given by mouth) Every 8 hours Unchanged Other Prescription (ONETOUCH VERIO FLEX KIT) 1 each by ou [...] 2 times a day TWICE ??DAIY. ?? Education Materials Hyperglycemia Hyperglycemia occurs when the level of sugar (glucose) in the blood is too high. Glucose is a type of sugar that provides the body's main source of energy. Certain hormones (insulin and glucagon) control the level of glucose in the blood. Insulin lowers blood glucose, and glucagon increases blood glucose. Hyperglycemia can result from not having enough insulin in the bloodstream, or from the bodynot responding normally to insulin. Hyperglycemia occurs most often in people who have diabetes (diabetes mellitus), but it can happen in people who do not have diabetes. It can develop quickly, and it can be life-threatening if it causes you to become severely dehydrated (diabetic ketoacidosis or hyperglycemic hyperosmolar state). Severe hyperglycemia is a medical emergency. For most people with diabetes, a blood glucose level above 240 mg/dL is considered hyperglycemia. What are the causes? If you have diabetes, hyperglycemia may be caused by: ? Medicines that increase blood glucose or affect your diabetes control. ? Getting less physical activity. ? Eating more than planned. ? Being sick or injured, having an infection, or having surgery. ? Stress. ? Not giving yourself enough insulin (if you are taking insulin). If you have undiagnosed diabetes, this may be the reason you have hyperglycemia. If you do not have diabetes, hyperglycemia may be caused by: ? Certain medicines, including: ? Steroid medicines. ? Beta-blockers. ? Epinephrine. ? Thiazide diuretics. ? Stress. ? Having a serious illness, an infection, or surgery. ? Diseases of the pancreas. What increases the risk? Hyperglycemia is more likely to develop in people who have risk factors for diabetes, such as: ? Having a family member with diabetes. ? Certain conditions in which the body's disease-fighting system (immune system) attacks itself (autoimmune disorders). ? Being overweight or obese. ? Having an inactive (sedentary) lifestyle. ? Having been diagnosed with insulin resistance. ? Having a history of prediabetes, gestational diabetes, or polycystic ovarian syndrome (PCOS). What are the signs or symptoms? Hyperglycemia may not cause any symptoms. If you do have symptoms, they may include: ? Increased thirst. ? Needing to urinate more often than usual. ? Hunger. ? Feeling very tired. ? Blurry vision. Other symptoms may develop if hyperglycemia gets worse, such as: ? Dry mouth. ? Abdominal pain. ? Loss of appetite. ? Fruity-smelling breath. ? Weakness. ? Unexpected weight loss. ? Tingling or numbness in the hands or feet. ? Headache. ? Cuts or bruises that are slow to heal. How is this diagnosed? Hyperglycemia is diagnosed with a blood test to measure your blood glucose level. This blood test is usually done while you are having symptoms. Your health care provider may also do a physical exam and review your medical history. You may have more tests to determine the cause of your hyperglycemia, such as: ? A fasting blood glucose (FBG) test. You will not be allowed to eat (you will fast) for at least 8 hours before a blood sample is taken. ? An A1C blood test. This provides information about blood glucose control over the previous 2???3 months. ? An oral glucose tolerance test (OGTT). This measures your blood glucose at two times: ? After fasting. This is your baseline blood glucose level. ? 2 hours after drinking a beverage that contains glucose. How is this treated? Treatment depends on the cause of your hyperglycemia. Treatment may include: ? Taking medicine to regulate your blood glucose levels. If you take insulin or other diabetes medicines, your medicine or dosage may be adjusted. ? Lifestyle changes, such as exercising more, eating healthier foods, or losing weight. ? Treating an illness or infection. ? Checking your blood glucose more often. ? Stopping or reducing steroid medicines. If your hyperglycemia becomes severe and it results in diabetic ketoacidosis or hyperglycemic hyperosmolar state, you must be hospitalized and given IV fluids and IV insulin. Follow these instructions at home: General instructions ? Take qdrt-lev-anoezkr and prescription medicines only as told by your health care provider. ? Do not use any products that contain nicotine or tobacco. These products include cigarettes, chewing tobacco, and vaping devices, such as e-cigarettes. If you need help quitting, ask your health careprovider. ? If you drink alcohol: ? Limit how much you have to: ? 0???1 drink a day for women who are not . ? 0???2 drinks a day for men. ? Know how much alcohol is in a drink. In the [place] one drink equals one 12 oz bottle of beer (355 mL), one 5 oz glass of wine (148 mL), or one 1?? oz glass of hard liquor (44 mL). ? Learn to manage stress. If you need help with this, ask your health care provider. ? Do exercises as told by your health care provider. ? Keep all follow-up visits. This is important. Eating and drinking ? Maintain a healthy weight. ? Stay hydrated, especially when you exercise, get sick, or spend time in hot temperatures. ? Drink enough fluid to keep your urine pale yellow. If you have diabetes: ? Know the symptoms of hyperglycemia. ? Follow your diabetes management plan as told by your health care provider. Make sure you: ? Take your insulin and medicines as told. ? Follow your exercise plan. ? Follow your meal plan. Eat on time, and do not skip meals. ? Check your blood glucose as often as told. Make sure to check your blood glucose before and after exercise. If you exercise longer or in a different way, check your blood glucose more often. ? Follow your sick day plan whenever you cannot eat or drink normally. Make this plan in advance withyour health care provider. ? Share your diabetes management plan with people in your workplace, school, and household. ? Check your urine for ketones when you are ill and as told by your health care provider. ? Carry a medical alert card or wear medical alert jewelry. Where to find more information [place] [employer]: www.diabetes.org Contact a health care provider if: ? Your blood glucose is at or above 240 mg/dL (13.3 mmol/L) for 2 days in a row. ? You have problems keeping your blood glucose in your target range. ? You have frequent episodes of hyperglycemia. ? You have signs of illness, such as nausea, vomiting, or fever. Get help right away if: ? Your blood glucose monitor reads high even when you are taking insulin. ? You have trouble breathing. ? You have a change in how you think, feel, or act (mental status). ? You have nausea or vomiting that does not go away. These symptoms may represent a serious problem that is an emergency. Do not wait to see if the symptoms will go away. Get medical help right away. Call your local emergency services (911 in the [place] Do not drive yourself to the hospital. Summary ? Hyperglycemia occurs when the level of sugar (glucose) in the blood is too high. ? Hyperglycemia can happen with or without diabetes, and severe hyperglycemia can be life-threatening. ? Hyperglycemia is diagnosed with a blood test to measure your blood glucose level. This blood test is usually done while you are having symptoms. Your health care provider may also do a physical exam and review your medical history. ? If you have diabetes, follow your diabetes management plan as told by your health care provider. ? Contact your health care provider if you have problems keeping your blood glucose in your target range. This information is not intended to replace advice given to you by your health care provider. Make sure you discuss any questions you have with your health care provider. Document Revised: 06/10/2021 Document Reviewed: 06/10/2021 [employer] Patient Education ?? 2022 [employer] Tests Performed Medications and Immunizations Administered Given sodium chloride 0.9% bolus, 1000 mL, Hydration Bolus Toradol, 15 mg, IV Push Lab Test Name Test Result Date/Time pH Mirza 7.31 pH unit(s) 10/12/2023 13:44 EST pCO2 Mirza 51 mmHg 10/12/2023 13:44 EST pO2 Mirza 42 mmHg 10/12/2023 13:44 EST HCO3 Venous 25 mmol/L 10/12/2023 13:44 EST O2 Sat Mirza 71 % 10/12/2023 13:44 EST CO2 Total Venous 27 mmol/L 10/12/2023 13:44 EST Base Excess Venous -1.6 mmol/L 10/12/2023 13:44 EST WBC 7.1 x10^3/mcL 10/12/2023 13:44 EST RBC 4.3 x10^6/mcL 10/12/2023 13:44 EST Hgb 12.7 g/dL 10/12/2023 13:44 EST Hct 39.0 % 10/12/2023 13:44 EST MCV 90.9 fL 10/12/2023 13:44 EST MCH 29.6 pg 10/12/2023 13:44 EST MCHC 32.6 g/dL 10/12/2023 13:44 EST RDW-CV 14.7 % 10/12/2023 13:44 EST Platelets 246 x10^3/mcL 10/12/2023 13:44 EST Neutro Auto 68.9 % 10/12/2023 13:44 EST Lymph Auto 24.3 % 10/12/2023 13:44 EST Douglas Auto 4.4 % 10/12/2023 13:44 EST Eos, Auto 1.1 % 10/12/2023 13:44 EST Basophil Auto 0.3 % 10/12/2023 13:44 EST Imm Gran Auto 1.0 % 10/12/2023 13:44 EST Neutro Absolute 4.9 x10^3/mcL 10/12/2023 13:44 EST Sodium Level 133 mmol/L 10/12/2023 13:44 EST Potassium Level 4.3 mmol/L 10/12/2023 13:44 EST Chloride Level 98 mmol/L 10/12/2023 13:44 EST CO2 25 mmol/L 10/12/2023 13:44 EST Alk Phos 246 unit/L 10/12/2023 13:44 EST AST 156 unit/L 10/12/2023 13:44 EST ALT 218 unit/L 10/12/2023 13:44 EST BUN 24 mg/dL 10/12/2023 13:44 EST Glucose Level 339 mg/dL 10/12/2023 13:44 EST Creatinine Level 1.01 mg/dL 10/12/2023 13:44 EST eGFR AA 79 10/12/2023 13:44 EST eGFR Non-AA 79 10/12/2023 13:44 EST Calcium Level 8.5 mg/dL 10/12/2023 13:44 EST Protein Total 7.7 g/dL 10/12/2023 13:44 EST Albumin Level 3.2 g/dL 10/12/2023 13:44 EST Bilirubin Total 1.1 mg/dL 10/12/2023 13:44 EST Bilirubin Direct 0.47 mg/dL 10/12/2023 13:44 EST GGT 1822 unit/L 10/12/2023 13:44 EST Beta-Hydroxybutyrate 0.3 mmol/L 10/12/2023 13:44 EST Lipase Level 12 unit/L 10/12/2023 13:44 EST Magnesium Level 1.9 mg/dL 10/12/2023 13:44 EST TSH 1.252 mcIntlUnit/mL 10/12/2023 13:44 EST Influenza A -IDNOW NOT DETECTED. 10/12/2023 13:42 EST Influenza B -IDNOW NOT DETECTED. 10/12/2023 13:42 EST SARS-CoV-2 (COVID-19) RNA (ID Now) Not Detected 10/12/2023 13:42 EST Employed 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 Unknown 10/12/2023 13:42 EST Symptomatic as defined by CDC? Unknown 10/12/2023 13:42 EST In ICU? Unknown 10/12/2023 13:42 EST Group care resident? Unknown 10/12/2023 13:42 EST status? Unknown 10/12/2023 13:42 EST Patient/Gold Buyer Signature Patient Name:MARIELOS MIRAMONTES I have received this information and my questions have been answered. Patient/Gold Buyer Name: Patient/Gold Buyer Signature: Relationship to Patient: Witness Name/Signature: Date: Electronically Signed on: 10/12/2023 17:04 ESTSigned by:TAD Discharge summary * Ginette Day: PERFORM Event Display: Discharge Summary Authored Date: [id number] Patient Care team information Care Team Personnel Name: Jamila Archer MD Position: Physician Member Role: Informed Provider Address: Address: [address] [place] [id number] [place] [address] Name: Shila Krueger Position: Ambulatory - RN/CORPORATE EXECUTIVE ([facility]) Member Role: Title 1 Tutor Care Team Related Persons Name: EMILIO PATHAK Address: Home [address] [facility] [phone] Name: LAUREN JONES Name: ELLIS GRAMAJO Address: Home [address] [place], [id number]
--- OUTSIDE RECORDS SUMMARY | 2024-02-29 19:10 | XMS_ITS | Continuity of Care Document ---
Author Name Unknown Organization [facility] Address [address] [place] [address] Care Team Providers Care Care Administrative Tech Name Role Phone Jamila Archer Primary Care Physician Encounter [facility] Date(s): 03/22/23 - 03/22/[address] [id number] Discharge Disposition: Home or Self Care Attending Physician: Arnold Don MD Admitting Physician: Arnold Don MD Allergies, Adverse Reactions, Alerts Substance Reaction Severity Status morphine Unknown Active rOPINIRole Severe Active Assessment and Plan Extracted from: Title:Clinical Document Author:Zackery Harry Date:03/22/23 Diagnosis: Dizziness Comment: Future Appointments Future Scheduled Tests Laboratory* Basic Metabolic Panel 01/10/23 * Basic Metabolic Panel 02/20/23 * SARS-CoV-2 (COVID-19)/Flu/RSV (GeneXpert) 08/21/22 Radiology* XR Spine Lumbosacral 4+ Views 02/27/23 Functional Status 03/22/23 Family Member Travel History No recent t [...] instructions, # 500 EA, 0 Refill(s), Pharmacy: [facility] [id number] Start Date: 09/08/22 Status: Ordered chlorthalidone 25 mg oral tablet 25 mg = 1 tab, Oral, Daily, # 90 tab, 0 Refill(s), Pharmacy: [facility] [address], 149, cm, 12/31/22 3:07:00 EDT, Height/Length Dosing, 150, kg, 12/31/22 3:07:00 EDT, Weight Dosing Start Date: 02/20/23 Status: Ordered Dexcom G6 sensors Dexcom G6 sensors, To check BS 4x daily, Supply, See instructions, # 6 EA, 0 Refill(s), Pharmacy: [facility] [id number] Start Date: 11/24/22 Status: Ordered Dexcom Sensors G6, change every 10 days Dexcom Sensors G6, change every 10 days, Use for BS monitoring, Supply, See instructions, # 4 EA, 3Refill(s), Pharmacy: [facility] [id number] Start Date: 01/16/23 Status: Ordered Dexcom Transmitter, change every 3 months Dexcom Transmitter, change every 3 months, Use to monitor BS, Supply, See instructions, # 1 EA, 3 Refill(s), Pharmacy: [facility] [id number] Start Date: 01/16/23 Status: Ordered Diflucan 150 mg oral tablet 150 mg = 1 tab, Oral, Once, Can repeat in 3 days if symptoms persist, # 2 tab, 0 Refill(s), Pharmacy: [facility] [address], 149, cm, 12/31/22 3:07:00 EDT, Height/Length Dosing, [...] instructions, # 1 EA, 0 Refill(s), Pharmacy: [id number] Start Date: 12/18/22 Status: Ordered Glucagon Emergency [...] dose., # 90 tab, 3 Refill(s), Pharmacy: [facility], 150, cm, 10/27/22 6:33:00 EST, Height/Length D... Start Date: 10/27/22 Status: Ordered levothyroxine 125 mcg (0.125 mg) oral tablet 125 mcg = 1 tab, Oral, Daily, Take one tablet by mouth with water a half hour before eating or taking any other medication. Take with 100 mcg dose., # 90 tab, 3 Refill(s), Pharmacy: [id number], 150, cm, 10/27/22 6:33:00 EST, Height/Length D... Start Date: 10/27/22 Status: Ordered lisinopril 10 mg oral tablet 10 mg = 1 tab, Oral, Daily, for 90 days- dose change 10/20/2021, # 90 tab, 3 Refill(s), Pharmacy: [facility], 150, cm, 08/09/22 1:15:00 EST, Height/Length Dosing, 127.01, kg, 08/09/22 1:15:00 EST, Weight Dosing Start Date: 10/05/22 Status: Ordered magnesium gluconate 250 mg oral tablet 250 mg 1 tab, Oral, Daily, X 30 days, # 30 tab, 0 Refill(s), 04/21/23 14:51:00 EDT, Pharmacy: [facility], 149, cm, 03/22/23 10:48:00 EDT, Height/Length Dosing, 129.7, kg, 03/22/23 10:48:00EDT, Weight Dosing Start Date: 03/22/23 Stop Date: 04/21/23 Status: Ordered multivitamin adult, oral tablet 1 tab, Oral, Daily, # 90 tab, 0 Refill(s), other reason (Rx) Start Date: 03/24/22 Status: Ordered ONETOUCH VERIO FLEX KIT ONETOUCH VERIO FLEX KIT, 1 each by [facility]. (non drug: combo route) route 4 times daily. Start Date: 03/02/22 Status: Ordered ONETOUCH VERIO MARLENE ONETOUCH VERIO MARLENE, Test blood glucose withone new test strip 4 times daily Start Date: 03/02/22 Status: Ordered potassium chloride 10 mEq oral capsule, extended release 10 mEq = 1 cap, Oral, BID, X 30 days, # 60 cap, 0 Refill(s), 04/21/23 14:50:00 EDT, Pharmacy: [facility], 149, cm, 03/22/23 10:48:00 EDT, Height/Length Dosing, 129.7, kg, 03/22/23 10:48:00EDT, Weight Dosing Start Date: 03/22/23 Stop Date: 04/21/23 Status: Ordered Tessalon Perles 100 mg oral capsule 200 mg = 2 cap, Oral, TID, PRN as needed for cough, do not crush or chew, # 84 cap, 0 Refill(s), Pharmacy: [facility], 149, cm, 12/31/22 3:07:00 EDT, Height/Length Dosing, 150, kg, 12/31/22 3:07:00 EDT, Weight Dosing Start Date: 01/02/23 Stop Date: 01/16/23 Status: Ordered torsemide 20 mg oral tablet 60 mg = 3 tab, Oral, BID, take 3 tablets to equal 60mg twice daily, # 180 tab, 4 Refill(s), Pharmacy: [id number], 149, cm, 12/31/22 3:07:00 EDT, Height/Length Dosing, 150, kg, 12/31/22 3:07:00 EDT, Weight Dosing Start Date: 02/28/23 Status: Ordered triamcinolone 0.1% topical cream 1 [place], Topical, BID, # 60 g, 0 Refill(s), Pharmacy: [facility], 150, cm, 11/18/22 19:16:00 [...] hr, # 30 tab, 0 Refill(s), Pharmacy: [facility], 150, cm, 226:18:00 EDT, Height/Length Dosing, 129, kg, 03/14/22 6:18:00 EDT, Weight Dosing Start Date: 03/23/22 Status: Ordered Mental Status 03/22/23 Eye Opening Response [place] Spontaneous ly Best Verbal Response [place] Oriented Best Motor Response [place] Obeys comman ds [place] Coma Score 15 Problem List Condition Confirmation [...] 4with adenoidectomy Results Laboratory List Name Date Beta Hydroxybutyrate 03/22/23 CBC w/ Diff 03/22/23 Comprehensive Metabolic Panel (CMP) 03/22 D-Dimer 03/22/23 Magnesium Level 03/22/23 Troponin-I 03/22/23 Automated Diff 03/22/23 Most recent to oldest [Reference Range]: 1 WBC [5.0-10.0 x10^3/mcL] 11.2 x10^3/mcL *HI* (03/22/23 11:19 AM) RBC [4.1-5.3 x10^6/mcL] 4.7 x10^6/mcL (03/22/23 11:19 AM) Neutro Auto [40.0-75.0 %] 61.7 % (03/22/23 11:19 AM) Lymph Auto [20.0-50.0 %] 30.0 % (03/22/23 11:19 AM) Mccormick Auto [2.0-15.0 %] 4.2 % (03/22/23 11:19 AM) Basophil Auto [0.0-1.0 %] 0.5 % (03/22/23 11:19 AM) BUN [7-18 mg/dL] 72 mg/dL *HI* (03/22/23 11:19 AM) Glucose Level [74-106 mg/dL] 205 mg/dL *HI* (03/22/23 AM) Potassium Level [3.5-5.1 mmol/L] 2.8 mmo l/L *LOW* (03/22/23 AM) MCV [80.0-96.0 fL] 86.4 fL (03/22/23 AM) AST [15-37 unit/L] 91 unit/L *HI* (03/22/23 AM) ALT [14-59 unit/L] 132 unit/L *HI* (03/22/23 AM) MCHC [31.0-35.0 g/dL] 32.8 g/dL (03/22/23 AM) Troponin-I [0.0-51.4 pg/mL] 9.0 pg/mL (03/22/23 AM) Sodium Level [136-145 mmol/L] 136 mmol/L (03/22/23 AM) Hct [37.0-47.0 %] 40.5 % (03/22/23 AM) Calcium Level [8.5-10.1 mg/dL] 9.4 mg/dL (03/22/23 AM) Albumin Level [3.4-5.0 g/dL] 3.8 g/dL (03/22/23 AM) Protein Total [6.4-8.2 g/dL] 8.2 g/dL (03/22/23 AM) MCH [26.0-32.0 pg] 28.4 pg (03/22/23 AM) Magnesium Level [1.8-2.4 mg/dL] 2.6 mg/d L *HI* (03/22/23 AM) Neutro Absolute 6.9 x10^3/mcL *NA* (03/22/23 AM) Bilirubin Total [0.2-1.0 mg/dL] 0.7 mg/d L (03/22/23 AM) Hgb [12.0-16.0 g/dL] 13.3 g/dL (03/22/23 AM) Alk Phos [46-146 unit/L] 283 unit/L *HI* (03/22/23 11:19 AM) Platelets [130-450 x10^3/mcL] 331 x10^3/ mcL (03/22/23 11:19 AM) CO2 [21-32 mmol/L] 35 mmol/L *HI* (03/22/23 11:19 AM) eGFR Non-AA [>=60] 38 *LOW* (03/22/23 11: AM) eGFR AA [>=60] 38 *LOW* (03/22/23 11:19 AM) Chloride Level [98-107 mmol/L] 88 mmol/L *LOW* (03/22/23 11:19 AM) RDW-CV [11.5-14.5 %] 16.3 % *HI* (03/22/23 11:19 AM) Imm Gran Auto [0.0-0.9 %] 0.4 % (03/22/23 11:19 AM) Creatinine Level [0.55-1.02 mg/dL] 1.84 mg/dL *HI* (03/22/23 11:19 AM) Beta-Hydroxybutyrate [0.0-0.5 mmol/L] 0. 2 mmol/L (03/22/23 11:30 AM) D Dimer, (Quant.) [0.00-0.50 mg/L] 0.19 mg/L 1 (03/22/23 11:19 AM) Eos, Auto [1.0-6.0 %] 3.2 % (03/22/23 11:19 AM) 1Interpretive Data: Exclusion of PE: Effective May 29, 2012 a new D-Dimer assay [INNOVANCE] is being implemented, this test has a new reference range <0.50 mg/L FEU. This assay was evaluated in a multi-center study to validate the exclusion of PE using fresh specimens collected from 701 consecutive patients presenting in the ED with suspected PE. Study patients were evaluated using the Wells' rules to estimate high, moderate or low probability of PE, a D-Dimer result of <0.50 mg/L FEU was considered negative and a D-Dimer result >/= 0.50 was considered positive for PE. Vital Signs Most recent to oldest [Reference Range]: 1 2 3 Temperature Temporal Artery [36-38 Deg C] 36.5 Deg C (03/22/23 3:18 PM) 36.0 Deg C (03/22/23 10:41 AM) Peripheral Pulse Rate [60-100 bpm] 93 bpm (03/22/23 1:04 PM) 89 bpm (03/22/23 11:52 AM) 91 bpm (03/22/23 10:41 AM) Heart Rate Monitored [60-100 bpm] 92 bpm (03/22/23 3:18 PM) Respiratory Rate [12-24 br/min] 18 br/min (03/22/23 3:18 PM) 14 br/min (03/22/23 1:04 PM) 18 br/min (03/22/23 11:52 AM) Blood Pressure [90-140/60-90 mmHg] 105/78mmHg (03/22/23 3:18 PM) 92/75mmHg (03/22/23 1:04 PM) 114/66mmHg (03/22/23 10:41 AM) Weight Dosing 129.70 kg (03/22/23 10:48 AM) Weight Estimated 129.70 kg (03/22/23 10:41 AM) Height/Length Dosing 149.000 cm (03/22/23 10:48 AM) Height/Length Estimated 149.000 cm (03/22/23 10:41 AM) Social History Social History Type Response Tobacco Never tobacco user T obacco Use:. Sex Female Physician Emergency department Note * Fransisco Correa MD: PERFORM Event Display: ED Note Physician Authored Date: [id number] MARIELOS MIRAMONTES :1995 Age:28 years Sex:Female Visit Date:03/22/2023 Primary Care Physician: Jamila Archer MD Basic Information Time Seen: Fransisco Correa MD / 03/22/2023 10:52 Chief Complaint My grandfather on march 13.and I have been struggling with that, but I'm having chest pain the last few days that has been worse, so I'm just worried. BGL this morning was 173. PT is a DM1 pt also c/o dizziness upon standing quickly. History Of Present Illness: Presenting concern is chest pain. ??Onset 2 days prior.?? Prior episode associated with of daughter on March 13.?? Associated symptoms are??head spinning and lightheadedness.?? Yesterday patient felt??presyncopal.?? Dizziness is made worse by??focusing, movement.?? Rate of onset of chest pain was gradual. ??Initial??intensity was 8/10. ??Current intensity is 6/10. ??Aggravating factors??are??moving and bending.?? Quality is sharp and pressure-like. ??Radiation to the upper back.?? Prior treatment with Advil without help. Review of Systems: Systems negative for??fever, shortness of breath, vomiting??upper respiratory symptoms, GI symptoms, symptoms. ??Patient does endorse??frontal headache 02/17. ??Prior similar episodes related to stress. Physical Exam Vitals & Measurements T:??36.0?C ??(Temporal Artery)?? HR:??93??(Peripheral)?? RR:??14?? BP:??92/75?? SpO2:??92%?? HT:??149.000??cm?? WT:??129.70??kg??(Estimated)?? Pain Score:??2?? Pain Score:??2?? O2 Therapy:??Room air?? Acute distress. ??Alert.?? Extraocular motions normal.?? Visual barnes normal. ??Muscles of facial expression normal. ??Strength normal. ??Coordination normal.?? Chest palpation??reveals??tenderness over the upper sternum which precipitates pain. ??Abdomen is obese nontender. ??Extremities are normal. Medical Decision Making: Complexity is chronic worsening.?? Data complexity is low.?? Management risk are moderate.?? [facility] [place] [address]. Procedure No Qualifying Data Assessment/Plan Ordered: magnesium gluconate 250 mg oral tablet, 250 mg 1 tab, Oral, Daily, X 30 days, # 30 tab, 0 Refill(s), 04/21/23 14:51:00 EDT, Pharmacy: [id number], 149, cm, 03/22/23 10:48:00 EDT, Height/Length Dosing, 129.7, kg, 03/22/23 10:48:00 EDT, Weight Dosing potassium chloride 10 mEq oral capsule, extended release, 10 mEq = 1 cap, Oral, BID, X 30 days, # 60 cap, 0 Refill(s), 04/21/23 14:50:00 EDT, Pharmacy: [id number], 149, cm, 03/22/23 10:48:00 EDT, Height/Length Dosing, 129.7, kg, 03/22/23 10:48:00 EDT, Weight Dosing CV EKG ED, 03/22/23 10:50:00 EDT, Routine, Reason: Chest Pain, Stop date and time 03/22/23 10:50:00EDT, ORD_SET_REQ_DT_RANGE, [facility] Person Id CV EKG ED, 03/22/23 11:12:00 EDT, Routine, Reason: Chest Pain, Stop date and time 03/22/23 11:12:00EDT, ORD_SET_REQ_DT_RANGE, [facility] Id Discharge Patient, 03/22/23 14:52:00 EDT, Home Independently, Constant Indicator Discharge diagnosis is chest wall pain, palpitations, hypokalemia, hypomagnesemia. Medication Reconciliation New Prescription magnesium gluconate (magnesium gluconate 250 mg oral tablet)1 tab Oral (given by mouth) every day for 30 Days. Refills: 0. ?? potassium chloride (potassium chloride 10 mEq oral capsule, extended release)1 Capsules Oral (givenby mouth) 2 times a day for 30 Days. Refills: 0. ?? Unchanged ascorbic acid (Vitamin C 500 mg oral tablet)1 tab Oral (given by mouth) every day. Refills: 0. ?? atorvastatin (atorvastatin 40 mg oral tablet)1 tab Oral (given by mouth) every day. ?? benzonatate (Tessalon Perles 100 mg oral capsule)2 Capsules Oral (given by mouth) 3 times a day as needed as needed for cough for 14 Days. do not crush or chew. Refills: 0. ?? cetirizine-pseudoephedrine (ZyrTEC-D 5 mg-120 mg oral tablet, extended release)1 tab Oral (given bymouth) every 24 hours. Refills: 0. ?? chlorthalidone (chlorthalidone 25 mg oral tablet)1 tab Oral (given by mouth) every day. Refills: 0. ?? dulaglutide (Trulicity Pen 0.75 mg/0.5 mL subcutaneous solution)0.5 Milliliters Subcutaneous (underthe skin) every week. rotate injection sites. ?? Durable Medical Equipment for Prescription (B-D [...] months)Use to monitor BS. Refills: 3. ?? Durable Medical Equipment for Prescription (FUTURO [...] blood sugar. ?? insulin regular (HumuLIN R JuventinoPen (Concentrated) 500 units/mL subcutaneous solution)200 Units Intradermal [...] every day. Refills: 0. ?? Other Prescription (InterneerIO FLEX KIT)1 each by [facility]. (non drug: combo route) route 4 times daily.. ?? Other Prescription (ViraloidTOUCH VERIO MARLENE)Test blood glucose withone new test strip 4 times daily. ?? torsemide (torsemide 20 mg oral tablet)3 tab Oral (given by mouth) 2 times a day. take 3 tablets toequal 60mg twice daily. Refills: 4. ?? triamcinolone topical (triamcinolone 0.1% topical cream)1 [...] fracture (12/22/2020)???Adenoidectomy (09/10/2013)???Tonsillectomy (09/10/2003) Medication Administration Given acetaminophen, 1000 mg, IV Piggyback ketorolac, 30 mg, IV Push NS bolus, 500 mL, IV Piggyback potassium chloride, 20 mEq, Oral potassium chloride, 10 mEq, 10 mEq, IV Piggyback Allergies rOPINIRole morphine Social History Alcohol Current, [...] and Differential?? LATEST RESULTS?? HISTORICAL RESULTS?? WBC?? 03/22/23 11:19?? 11.2 ??High?? 01/02/23?? 10.3 ??High?? RBC?? 03/22/23 11:19?? 4.7?? 01/02/23?? 3.8 ??Low?? Hgb?? 03/22/23 11:19?? 13.3?? 01/02/23?? 11.4 ??Low?? Hct?? 03/22/23 11:19?? 40.5?? 01/02/23?? 35.9 ??Low?? MCV?? 03/22/23 11:19?? 86.4?? 01/02/23?? 94.0?? MCH?? 03/22/23 11:19?? 28.4?? 01/02/23?? 29.8?? MCHC?? 03/22/23 11:19?? 32.8?? 01/02/23?? 31.8?? RDW-CV?? 03/22/23 11:19?? 16.3 ??High?? 01/02/23?? 16.4?? Platelets?? 03/22/23 11:19?? 331?? 01/02/23?? 228?? Neutro Auto?? 03/22/23 11:19?? 61.7?? 01/02/23?? 52.2?? Lymph Auto?? 03/22/23 11:19?? 30.0?? 01/02/23?? 34.9?? Mccormick Auto?? 03/22/23 11:19?? 4.2?? 01/02/23?? 7.2?? Eos, Auto?? 03/22/23 11:19?? 3.2?? 01/02/23?? 4.1?? Basophil Auto?? 03/22/23 11:19?? 0.5?? 01/02/23?? 0.5?? Imm Gran Auto?? 03/22/23 11:19?? 0.4?? 01/02/23?? 1.1 ??High?? Neutro Absolute?? 03/22/23 11:19?? 6.9?? 01/02/23?? 5.4? Coagulation?? LATEST RESULTS?? HISTORICAL RESULTS?? D Dimer, (Quant.)?? 03/22/23 11:19?? 0.19?? 11/23/22?? 1.23 ??High? Routine Chemistry?? LATEST RESULTS?? HISTORICAL RESULTS?? Sodium Level?? 03/22/23 11:19?? 136?? 01/02/23?? 136?? Potassium Level?? 03/22/23 11:19?? 2.8 ??Low?? 01/02/23?? 5.0?? Chloride Level?? 03/22/23 11:19?? 88 ??Low?? 01/02/23?? 99?? CO2?? 03/22/23 11:19?? 35 ??High?? 01/02/23?? 27?? Alk Phos?? 03/22/23 11:19?? 283 ??High?? 12/18/22?? 259 ??High?? AST?? 03/22/23 11:19?? 91 ??High?? 12/18/22?? 183 ??High?? ALT?? 03/22/23 11:19?? 132 ??High?? 12/18/22?? 163 ??High?? BUN?? 03/22/23 11:19?? 72 ??High?? 01/02/23?? 35 ??High?? Glucose Level?? 03/22/23 11:19?? 205 ??High?? 01/02/23?? 268 ??High?? Creatinine Level?? 03/22/23 11:19?? 1.84 ??High?? 01/02/23?? 0.90?? eGFR AA?? 03/22/23 11:19?? 38 ??Low?? 01/02/23?? 91?? eGFR Non-AA?? 03/22/23 11:19?? 38 ??Low?? 01/02/23?? 91?? Calcium Level?? 03/22/23 11:19?? 9.4?? 01/02/23?? 8.8?? Protein Total?? 03/22/23 11:19?? 8.2?? 12/18/22?? 8.4 ??High?? Albumin Level?? 03/22/23 11:19?? 3.8?? 12/18/22?? 3.8?? Bilirubin Total?? 03/22/23 11:19?? 0.7?? 12/18/22?? 0.6?? Beta-Hydroxybutyrate?? 03/22/23 11:30?? 0.2? Magnesium Level?? 03/22/23 11:19?? 2.6 ??High?? 01/02/23?? 2.5 ??High? Cardiac Isoenzymes?? LATEST RESULTS?? HISTORICAL RESULTS?? Troponin-I?? 03/22/23 11:19?? 9.0?? 12/30/22?? 14.2? Electronically Signed on 03/22/23 03:09 PM Fransisco Correa MD Emergency department Discharge instructions * Fransisco Correa MD: PERFORM Event Display: ED Discharge Information Authored Date: [id number] MARIELOS MIRAMONTES :1995 Age:28 years Sex:Female Visit Date:03/22/2023 Primary Care Physician: Jamila Archer MD Discharge Instructions We would like to thank you for allowing us to assist you with your healthcare needs. The following includes patient education materials and information regarding your injury/illness. Discharge Vitals Temperature??(Temporal Artery) 96.8 ??F (36.0 ??C) Heart Rate??(Peripheral) 93 Respiratory Rate?? 14 Blood Pressure?? 92/75?? Height?? 58.66 in (149.000 cm) Weight??(Estimated) 285.99 lb (129.70 kg) Allergies rOPINIRole morphine What to Do Next Instructions from Your Care Team Decrease your??magnesium supplementation to??250 mg daily.?? Take potassium 20 mEq??daily.?? For your chest discomfort you may take??acetaminophen 1000 mg 4 times per day.?? Follow-up with your??primary care provider. ?? Fransisco Correa MD Upcoming Scheduled Appointments Sunday 4:30 PM EDT ?? Sunday 8:20 AM EDT ?? Sunday 3:40 PM EDT ?? Sunday 3:50 PM EST ?? Sunday 3:30 PM EST ?? You were treated today [...] Much When Why Instructions Next Dose New magnesium gluconate (magnesium gluconate 250 mg oral tablet) 1 tab Oral (given by mouth) Every day Duration: 30 Days Pickup at [facility] 415 New potassium chloride (potassium chloride 10 mEq oral capsule, extended release) 1 Capsules Oral (given by mouth) 2 times a day Duration: 30 Days Pickup at [facility] 415 Unchanged ascorbic acid (Vitamin C 500 mg [...] mouth) Every 24 hours Ear infection Unchanged chlorthalidone (chlorthalidone 25 mg oral tablet) 1 tab Oral (given by mouth) Every day HTN (hypertension) Unchanged dulaglutide (Trulicity Pen 0.75 mg/ 0.5 [...] sugar ?? Unchanged insulin regular (HumuLIN R TraceyikPen (Concentrated) 500 units/ mL subcutaneous solution) 200 [...] by mouth) Every day Unchanged Other Prescription (InterneerIO FLEX KIT) 1 each by [facility]. (non drug: combo route) route 4 times daily. ?? Unchanged Other Prescription (ViraloidTODelivIO MARLENE) Test blood glucose withone new test strip 4 times daily ?? Unchanged torsemide (torsemide 20 mg oral tablet) 3 tab Oral (given by mouth) 2 times a day take 3 tablets to equal 60mg twice daily ?? Unchanged triamcinolone topical (triamcinolone 0.1% topical cream) 1 Application Topical (on the skin) 2 times a day Stasis dermatitis of both legs Bilateral lower extremity edema Duration: 10 Days Pharmacy Information [facility]156: [address] [phone] Tests Performed Medications and Immunizations Administered Given acetaminophen, 1000 mg, IV Piggyback ketorolac, 30 mg, IV Push NS bolus, 500 mL, IV Piggyback potassium chloride, 20 mEq, Oral potassium chloride, 10 mEq, 10 mEq, IV Piggyback Lab Test Name Test Result Date/Time WBC 11.2 x10^3/mcL 03/22/2023 11:19 EDT RBC 4.7 x10^6/mcL 03/22/2023 11:19 EDT Hgb 13.3 g/dL 03/22/2023 11:19 EDT Hct 40.5 % 03/22/2023 11:19 EDT MCV 86.4 fL 03/22/2023 11:19 EDT MCH 28.4 pg 03/22/2023 11:19 EDT MCHC 32.8 g/dL 03/22/2023 11:19 EDT RDW-CV 16.3 % 03/22/2023 11:19 EDT Platelets 331 x10^3/mcL 03/22/2023 11:19 EDT Neutro Auto 61.7 % 03/22/2023 11:19 EDT Lymph Auto 30.0 % 03/22/2023 11:19 EDT Mccormick Auto 4.2 % 03/22/2023 11:19 EDT Eos, Auto 3.2 % 03/22/2023 11:19 EDT Basophil Auto 0.5 % 03/22/2023 11:19 EDT Imm Gran Auto 0.4 % 03/22/2023 11:19 EDT Neutro Absolute 6.9 x10^3/mcL 03/22/2023 11:19 EDT D Dimer, (Quant.) 0.19 mg/L 03/22/2023 11:19 EDT Sodium Level 136 mmol/L 03/22/2023 11:19 EDT Potassium Level 2.8 mmol/L 03/22/2023 11:19 EDT Chloride Level 88 mmol/L 03/22/2023 11:19 EDT CO2 35 mmol/L 03/22/2023 11:19 EDT Alk Phos 283 unit/L 03/22/2023 11:19 EDT AST 91 unit/L 03/22/2023 11:19 EDT ALT 132 unit/L 03/22/2023 11:19 EDT BUN 72 mg/dL 03/22/2023 11:19 EDT Glucose Level 205 mg/dL 03/22/2023 11:19 EDT Creatinine Level 1.84 mg/dL 03/22/2023 11:19 EDT eGFR AA 38 03/22/2023 11:19 EDT eGFR Non-AA 38 03/22/2023 11:19 EDT Calcium Level 9.4 mg/dL 03/22/2023 11:19 EDT Protein Total 8.2 g/dL 03/22/2023 11:19 EDT Albumin Level 3.8 g/dL 03/22/2023 11:19 EDT Bilirubin Total 0.7 mg/dL 03/22/2023 11:19 EDT Beta-Hydroxybutyrate 0.2 mmol/L 03/22/2023 11:30 EDT Magnesium Level 2.6 mg/dL 03/22/2023 11:19 EDT Troponin-I 9.0 pg/mL 03/22/2023 11:19 EDT Patient/Horse Race Starter Signature Patient Name:MARIELOS MIRAMONTES I have received this information and my questions have been answered. Patient/Horse Race Starter Name: Patient/Horse Race Starter Signature: Relationship to Patient: Witness Name/Signature: Date: Electronically Signed on: 03/22/2023 15:09 EDTSigned by:[facility] Discharge summary * Zackery Harry: PERFORM Event Display: Discharge Note Authored Date: [id number] * Zackery Harry: PERFORM Event Display: Discharge Note Authored Date: [id number] Diagnosis: Dizziness Comment: Electronically Signed on 03/22/23 03:20 PM Zackery Harry Patient Care team information Care Team Personnel Name: Jamila Archer MD Position: Physician Member Role: Informed Provider Address: Address: [place] [address]- [place] Name: Shila Krueger Position: Ambulatory - RN/ASSEMBLING INSPECTOR (Michael) Member Role: Business Services Associate Name: Fransisco Correa MD Position: Physician Member Role: ED Physician Address: Address: [address] [place] [address] Name: Krystyna Le RN Position: Nurse Member Role: ED Nurse Name: Suzette Wilson RN Position: Nurse Member Role: ED Nurse Care Team Related Persons Name: EMILIO PATHAK Address: Home [address] [place], [phone] Name: ELLIS GRAMAJO Address: Home [address] [place], [phone]
--- OUTSIDE RECORDS SUMMARY | 2024-02-29 19:10 | XMS_ITS | Continuity of Care Document ---
Author Name Unknown Organization [facility] Address [address] [place] [address] Care Team Providers Care Senior Business Broker Name Role Phone Jamila Archer Primary Care Physician [phone] Encounter [id number] Date(s): 11/28/22 - 11/28/[address] [id number] Discharge Disposition: Home or Self Care Attending Physician: Jamila Archer MD Admitting Physician: Jamila Archer MD Referring Physician: Jamila Archer MD Allergies, Adverse Reactions, Alerts Substance Reaction [...] 500 EA, 0 Refill(s), Pharmacy: [facility] [id number] Start Date: 09/08/22 Status: Ordered Bactrim DS 800 mg-160 mg oral tablet 1 tab, Oral, BID, # 20 tab, 0 Refill(s), Pharmacy: [facility] [id number], 150, cm, 11/18/22 19:16:00 EST, Height/Length Dosing, 127, kg, 11/18/22 19:16:00 EST, Weight Dosing Start Date: 11/21/22 Stop Date: 12/01/22 Status: Ordered Dexcom G6 sensors Dexcom G6 sensors, To check BS 4x daily, Supply, See instructions, # 6 EA, 0 Refill(s), Pharmacy: [facility] [id number] Start Date: 11/24/22 Status: Ordered Diflucan 150 mg oral tablet 150 mg = 1 tab, Oral, Once, Can repeat in 3 days if symptoms persist, # 2 tab, 0 Refill(s), Pharmacy: [facility] [id number], 150, cm, 11/18/22 19:16:00 EST, Height/Length Dosing, 127, kg, 11/18/22 19:16:00 EST, Weight Dosing Start Date: 11/21/22 Status: Ordered ergocalciferol 1.25 mg (50,000 intl units) oral capsule 50,000 IntlUnit = 1 cap, Oral, every week Start Date: 03/02/22 Status: Ordered fenofibrate 30 mg oral capsule 30 mg = 1 cap, Oral, Daily, # 90 cap, 3 Refill(s), Pharmacy: [facility] [id number], 150, cm, 10/27/22 6:33:00 EST, Height/Length Dosing, 127, kg, 10/27/22 6:33:00 EST, Weight Dosing Start Date: 10/27/22 Status: Ordered fenofibrate 40 mg oral tablet 40 mg = 1 tab, Oral, Daily, # 30 tab, 0 Refill(s), Pharmacy: [facility] [id number], 150, cm, 10/27/22 6:33:00 EST, Height/Length Dosing, [...] dose., # 90 tab, 3 Refill(s), Pharmacy: [id number], 150, cm, 10/27/22 6:33:00 EST, Height/Length D... Start Date: 10/27/22 Status: Ordered levothyroxine 125 mcg (0.125 mg) oral tablet 125 mcg = 1 tab, Oral, Daily, Take one tablet by mouth with water a half hour before eating or taking any other medication. Take with 100 mcg dose., # 90 tab, 3 Refill(s), Pharmacy: [id number], 150, cm, 10/27/22 6:33:00 EST, Height/Length D... Start Date: 10/27/22 Status: Ordered lisinopril 10 mg oral tablet 10 mg = 1 tab, Oral, Daily, for 90 days- dose change 10/20/2021, # 90 tab, 3 Refill(s), Pharmacy: [id number], 150, cm, 08/09/22 1:15:00 EST, Height/Length Dosing, 127.01, kg, 08/09/22 1:15:00 EST, Weight Dosing Start Date: 10/05/22 Status: Ordered multivitamin adult, oral tablet 1 tab, Oral, Daily, # 90 tab, 0 Refill(s), other reason (Rx) Start Date: 03/24/22 Status: Ordered ONETOUCH VERIO FLEX KIT ONETOUCH VERIO FLEX K[place], 1 [place] [facility] [place]: combo route) route 4 times daily. Start Date: 03/02/22 Status: Ordered ONETOUCH VERIO MARLENE ONETOUCH VERIO MARLENE, Test blood glucose withone new test strip 4 times daily Start Date: 03/02/22 Status: Ordered predniSONE 20 mg oral tablet 40 mg = 2 tab, Oral, Daily, # 10 tab, 0 Refill(s), Pharmacy: [id number], 150, cm, 11/18/22 19:16:00 EST, Height/Length Dosing, 127, kg, 11/18/22 19:16:00 EST, Weight Dosing Start Date: 11/21/22 Stop Date: 11/26/22 Status: Ordered torsemide 20 mg oral tablet 1 tab, Oral, TID, PRN IF NEEDED, # 90 tab, 1 Refill(s), Pharmacy: [id number], 150, cm, 10/27/22 6:33:00 [...] hr, # 30 tab, 0 Refill(s), Pharmacy: [id number], 150, cm, :18:00 EDT, [...] Physician Member Role: Informed Provider Address: Address: [facility] [place], [place] [id number] [place] [address] Name: Shila Krueger Position: Ambulatory - RN/RIPENING ROOM HAND ([facility]) Member Role: Commuter Pilot Care Team Related Persons Name: EMILIO PATHAK Address: Home [address] [facility] [id number] Name: ELLIS GRAMAJO Address: Home [address] [place], [id number]
--- OUTSIDE RECORDS SUMMARY | 2024-02-29 19:10 | XMS_ITS | Continuity of Care Document ---
Author Name Unknown Organization [facility] Address [address] [place] [address] Care Team Providers Care Public Relations Account Executive Name Role Phone Jamila Archer Primary Care Physician [facility] Date[facility] 10/31/23 - 11/02/23 [facility] [address] [place] [address] Encounter Diagnosis Hypoxic respiratory failure(Discharge Diagnosis) - 10/31/23 Influenza A(Discharge Diagnosis) - 10/31/23 Sepsis(Discharge Diagnosis) - 10/31/23 Diabetes, type I(Discharge Diagnosis) - 10/31/23 Type 1 diabetes(Discharge Diagnosis) - 10/31/23 Morbid obesity(Discharge Diagnosis) - 10/31/23 Obstructive sleep apnea syndrome(Discharge Diagnosis) - 10/31/23 C. difficile colitis(Discharge Diagnosis) - 10/31/23 HLD (hyperlipidemia)(Discharge Diagnosis) - 10/31/23 Transaminitis(Discharge Diagnosis) - 10/31/23 Type 2 diabetes mellitus(Discharge Diagnosis) - 11/02/23 Discharge Disposition: Home or Self Care Attending Physician: Maurisio Nogueira DO Admitting Physician: Maurisio Nogueira DO Allergies, Adverse Reactions, Alerts Substance Reaction Severity Status morphine Unknown Active oxyCODONE 1 Unknown Active rOPINIRole Severe Active 1repotrs feeling loopy Assessment and Plan Extracted from: Title:Discharge Note Author:Osvaldo Harrison PA-C Date:11/02/23 Discharge Plan 1.??Hypoxic respiratory failure??J96.91 This is a 28 year old female patient with past medical history significant for but not limited to type 1 diabetes, obstructive sleep apnea requiring CPAP, hypertension, recent C. difficile, multiple hospitalizations recently for bilateral pneumonia. She presented to the ED on 10/31/2023 complaining of cough for 2 days with fevers which lead to increasing shortness of breath and inability to ambulate. Patient had a fever at the time of arrival to the Emergency Department and was treated with Tylenol. She had no leukocytosis seen on labs H&H normal and electrolytes were unremarkable. She was found to have a mild transaminitis with alk phos 287, AST 340, ALT 308. Liver function labs elevated at baseline however at time of arrival in ED was higher than baseline. Lactic aid initially in the ED was 2.8. Patient tested positive for influenza A, COVID negative. Prior?? to discharge patient was afebrile feeling much better and??morning labs revealed no WBC 4.4, H&H 11.6/35.9, electrolytes unremarkable, and lactic acid improved to 1.2, magnesium was found to be 1.6 and was repleted prior to discharge ?? Patient was initiated on Tamiflu and will be sent with script to continue Tamiflu to completed 5 day course. During hospital course patient required oxygen therapy at all times with 4L nasal cannula on exertion and 1L at rest. She also required 2L of oxygen with her CPAP at night. Patient will be discharged home with oxygen and also is discharged with script for a albuterol inhaler PRN. During hospital course patient blood sugars were difficult to be controlled and Novolin was used 100 units in the morning, 100 units at lunch and 100 units at dinner, at discharge pt agrees to go back on home regimen. ??During this hospital course it was very evident that this patient is very insulin resistant and fits the Type 2 Diabetes diagnosis. This patient has morbid obesity and also with the extreme insulin resistance shows features consistent with both Type 1 and 2 diabetes. Due to this clinical picture the patient would benefit from a GLP 1 receptor agonist such as Mounjaro.??Patient reported she will follow up with PCP in ~1 week to discuss this further and also follow up on influenza diagnosis requiring oxygen. Patient education provided and patient was told to report back to the ED with any chest pain, further increased shortness of breath despite oxygen therapy. 2.??Influenza A??J10.1 3.??Sepsis??A41.9 4.??Type 2 diabetes mellitus??E11.9 During this hospital course it was very evident that this patient is very insulin resistant and fits the Type 2 Diabetes diagnosis. This patient has morbid obesity and also with the extreme insulin resistance shows features consistent with both Type 1 and 2 diabetes. Due to this clinical picture the patient would benefit from a GLP 1 receptor agonist.??Patient reported she will follow up with PCP in ~1 week to discuss this further and also follow up on influenza diagnosis requiring oxygen. Patient education provided and patient was told to report back to the ED with any chest pain, further increased shortness of breath despite oxygen therapy 5.??Diabetes, type I??E10.9,??Type 1 diabetes??E10.9 see above 7.??Morbid obesity??E66.01 8.??Obstructive sleep apnea syndrome??G47.33 9.??C. difficile colitis??A04.72 10.??HLD (hyperlipidemia)??E78.5 11.??Transaminitis??R74.01 Orders: albuterol 90 mcg/inh aerosol inhaler, 1 inh, Inhale, Aerosol, Once, First Dose: 11/02/23 10:00:00 EST, Stop Date: 11/02/23 10:00:00 EST, Physician Stop, Routine albuterol 90 mcg/inh aerosol inhaler, 1 puffs, Inhale, every 6 hr, PRN as needed for wheezing, # 8.5 g, 0 Refill(s), Pharmacy: [id number], 149, cm, 11/02/23 8:54:00 EST, Height, 137.5, kg, 10/31/23 23:35:00 EST, Weight Dosing Tamiflu 75 mg oral capsule, 75 mg = 1 cap, Oral, BID, # 6 cap, 0 Refill(s), Pharmacy: [id number], 149, cm, 11/02/23 8:54:00 EST, Height, 137.5, kg, 10/31/23 23:35:00 EST, Weight Dosing Discharge Diet Instruction, Diabetic Diet Discharge Patient, 11/02/23 9:23:00 EST, Home Independently, Home Independently Oxygen Therapy, Stop date 11/02/23 9:23:00 EST, Osvaldo Harrison PA-C Follow Up With When Contact Information Jamila Archer MD Within [address] [place] [address] [place] [address]- Additional Instructions: Addendum by Maurisio Nogueira DO on November 02, 2023 17:48:17 EST Patient seen and examined with HARRISON Gruber,??and I agree with the above??note. ?? Patient has type 1 diabetes??but severe??insulin resistance more consistent with type 2 diabetes??(but for the lack of [place]??insulin).?? Treating her insulin resistance??with??weight loss??is very important in her case. Extracted from: Title:Progress/SOAP Note Author:Osvaldo Harrison Date:11/01/23 1.??Hypoxic respiratory failure??J96.91 Continues requiring supplemental oxygen to maintain saturation greater than 92% 2L oxygen by nasal cannula, will work on weaning patient off oxygen however will titrate up if needed also Continue with duonebs QID and albuterol PRN Continue treating fevers with Tylenol Patient c/o body aches and headache even after Tylenol, ordered 600mg Ibuprofen oral Continue with zofran for nausea and vomiting 2.??Influenza A??J10.1 Positive Flu Continue Tamiflu Continue with influenza droplet precaution 3.??Sepsis??A41.9 Appears to be improving lactic acid went from 2.8 initially in the ED to 1.2 Tachycardia has improved and HR currently 95 SpO2 maintaining at 96% on 2 L, is currently unable to tolerate being off supplemental oxygen especially with exertion Continue NS at 100 ML/hr 4.??Diabetes, type I??E10.9,??Type 1 diabetes??E10.9 Discussed diabetes medication regimen with pharmacy Will discontinue glargine Novolin 100 units in the morning 100 units??at lunch and 50 units at dinner Will hold if fingersticks blood sugars are low 6.??Morbid obesity??E66.01 7.??Obstructive sleep apnea syndrome??G47.33 Continue with home CPAP at night 8.??C. difficile colitis??A04.72 Continue oral vancomycin taper, currently at 125 mg BID 9.??HLD (hyperlipidemia)??E78.5 chronic continue holding hepatotoxic meds 10.??Transaminitis??R74.01 Chronic elevated liver enzymes Continue holding hepatotoxic meds Orders: ibuprofen, 600 mg = 1 tab, Oral, Tab, Once, First Dose: 11/01/23 9:00:00 EST, Stop Date: 11/01/23 9:00:00 EST, Physician Stop, Routine Addendum by Maurisio Nogueira DO on November 01, 2023 18:06:17 EST Patient seen and examined. ??Agree with note??of HARRISON Gruber,??above. Extracted from: Title:H & P Author:Paulnia Duffy ate:10/31/23 1.??Hypoxic respiratory fail ure??J96.91 O2 to keep SPO2 > 92% Home CPAP at night Duonebs QID Albuterol PRN Tylenol fever, headache Zofran for nausea and vomiting ? 2.??Influenza A??J10.1 Positive Flu A Start Tamiflu Precautions ? 3.??Sepsis??A41.9 Lactic acid 2.8 - trend Tachycardia, increased resp rate, 30's, decreased SPO2 80s, O2 requirement, febrile 39.8 4 litres of normal saline given in ED, will give MIVF Acetaminophen for fever ? 4.??Diabetes, type I??E10.9,??Type 1 diabetes??E10.9 Decrease usual insulin - last hospitalization it was 1/2'd and she continued to be hypoglycemic - start with 1/3 dose and adjust accordingly\ Finger sticks ACHS; sliding scale ? 6.??Morbid obesity??E66.01 7.??Obstructive sleep apnea syndrome??G47.33 Use home CPAP at night 8.??C. difficile colitis??A04.72 Continue oral vancomycin taper, currently at 125 mg bid Precautions 9.??HLD (hyperlipidemia)??E78.5 Chronic Hold hepatotoxic meds 10.??Transaminitis??R74.01 Chronic elevated liver enzymes Hold hepatotoxic meds Orders: Mylanta, 15 mL, Oral, Susp, every 6 hr, PRN dyspepsia, First Dose: 10/31/23 21:50:00 EST, Routine albuterol 2.5 mg/3 mL (0.083%) inhalation solution, 2.5 mg = 3 mL, Nebulized Inhalation, Soln, QID RT, PRN wheezing, First Dose: 10/31/23 22:10:00 EST, Routine enoxaparin, 40 mg = 0.4 mL, Subcutaneous, Soln, every 24 hr, First Dose: 10/31/23 21:50:00 EST, NOW GlucaGen, 1 mg, Intramuscular, Powder-Inj, As Directed, PRN low blood sugar, First Dose: 10/31/23 21:50:00 EST, Routine GlucaGen, 1 mg, Intramuscular, Powder-Inj, As Directed, PRN low blood sugar, First Dose: 10/31/23 21:24:00 EST, Routine Dextrose 50% intravenous solution, 25 mL, IV Push, Soln, As Directed, PRN low blood sugar, First Dose: 10/31/23 21:50:00 EST, Routine glucose 40% oral gel, 30 g = 75 mL, Oral, Gel, As Directed, PRN low blood sugar, First Dose: 10/31/23 21:24:00 EST, Routine Dextrose 50% intravenous solution, 25 g 50 mL, IV Push, Soln-IV, As Directed, PRN low blood sugar, First Dose: 10/31/23 21:24:00 EST, Routine Dextrose 50% intravenous solution, 12.5 g 25 mL, IV Push, Soln-IV, As Directed, PRN low blood sugar, First Dose: 10/31/23 21:24:00 EST, Routine Dextrose 50% intravenous solution, 50 mL, IV Push, Soln, As Directed, PRN low blood sugar, First Dose: 10/31/23 21:50:00 EST, Routine glucose 40% oral gel, 15 g = 37.5 mL, Oral, Gel, As Directed, PRN low blood sugar, First Dose: 10/31/23 21:24:00 EST, Routine glucose 40% oral gel, 30 g = 75 mL, Oral, Gel, As Directed, PRN low blood sugar, First Dose: 10/31/23 21:50:00 EST, Routine glucose 40% oral gel, 15 g = 37.5 mL, Oral, Gel, As Directed, PRN low blood sugar, First Dose: 10/31/23 21:50:00 EST, Routine insulin lispro (HumaLog) correction- sensitive, Sensitive Scale, Subcutaneous, Soln, QID(ACHS), First Dose: 11/01/23 7:30:00 EST, Routine ipratropium-albuterol 0.5 mg-2.5 mg/3 mL inhalation solution, 3 mL, Inhale, Soln, QID RT for 30 days, First Dose: 11/01/23 7:00:00 EST, Stop Date: 12/01/23 6:59:00 EDT, Physician Stop, Routine lidocaine 1% injectable solution, 1 mg 0.1 mL, Intradermal, Soln, As Directed, PRN other (see comment), First Dose: 10/31/23 21:50:00 EST, Routine omeprazole, 20 mg = 1 cap, Oral, Cap-DR, Daily, First Dose: 10/31/23 6:00:00 EST, Routine ondansetron, 4 mg = 2 mL, IV Push, Soln, every 6 hr, PRN nausea/vomiting, First Dose: 10/31/23 21:50:00 EST, Routine Tamiflu, 75 mg = 1 cap, Oral, Cap, Daily, Antibiotic Indication Influenza, treatment, First Dose: 10/31/23 20:30:00 EST, Routine polyethylene glycol 3350, 17 g = 1 packets, Oral, Powder-Recon, Daily, PRN constipation, First Dose: 10/31/23 21:50:00 EST, Routine Normal Saline Flush, 10 mL, IV Push, Soln, every 12 hr (rojas), First Dose: 11/01/23 9:00:00 EST, Routine Sodium Chloride 0.9% 1,000 mL, Total Volume (mL): 1,000, 1,000 mL, Soln-IV, IV, 100 mL/hr, Start Date: 10/31/23 21:50:00 EST, 137.5 kg, Populate Charting Weight From Order, 2.39, m2 Sodium Chloride 0.9% 1,000 mL, Total Volume (mL): 1,000, 1,000 mL, Soln-IV, IV, 30 mL/hr, Start Date: 10/31/23 21:50:00 EST, 137.5 kg, Populate Charting Weight From Order, 2.39, m2 Insulin Novalin R, see order comments, Subcutaneous, Misc, As Directed, First Dose: 10/31/23 22:03:00 EST, Routine vancomycin, 125 mg = 1 cap, Oral, Cap, BID, Antibiotic Indication Clostridium diff infec (oral vanco only), First Dose: 11/01/23 9:00:00 EST, Routine vancomycin, 125 mg = 1 cap, Oral, Cap, Once, Antibiotic Indication Clostridium diff infec (oral vanco only), First Dose: 10/31/23 22:00:00 EST, Stop Date: 10/31/23 22:00:00 EST, Physician Stop, Routine vancomycin, 125 mg = 1 cap, Oral, Cap, BID, Antibiotic Indication Clostridium diff infec (oral vanco only), First Dose: 11/01/23 9:00:00 EST, Routine Basic Metabolic Panel, Blood, Routine, 10/31/23 21:50:00 EST, every morning, for 3 days, Lab Collect Blood Glucose Monitoring POC, 10/31/23 21:50:00 EST, QID(ACHS), 11/01/23 7:30:00 EST Blood Glucose Monitoring POC, 10/31/23 21:24:00 EST, QID(ACHS), 11/01/23 7:30:00 EST Cardiac Monitoring, 10/31/23 21:50:00 EST, Telemetry CBC w/o Diff, Blood, Routine, 10/31/23 21:50:00 EST, every morning, for 3 days, Lab Collect Diet Order, 10/31/23 21:50:00 EST, Diabetic Incentive Spirometry Respiratory, Routine, As Directed, Restrictive Lung Disease, 10-15 times q 1hr while awake Intake and Output, 10/31/23 21:50:00 EST, every 8 hrs, Constant Indicator, 10/31/23 21:50:00 EST Isolation Precautions, 10/31/23 21:50:00 EST, Droplet Magnesium Level, Blood, Routine, 10/31/23 21:50:00 EST, every morning, for 3 days, Lab Collect Misc Nursing Task, 10/31/23 22:12:00 EST, Stop date 10/31/23 22:12:00 EST Notify Provider of Vital Signs, 10/31/23 21:50:00 EST, SpO2 < 92% on 2L O2 NC, T > 101.5, HR > 100, HR < 50, SBP greater than 160, SBP less than 90, DBP greater than 90, DBP less than 50, Resp Rate greater than 30, Resp Rate less than 8, Constant Indicator Nursing Task, 10/31/23 21:50:00 EST, Constant order Nursing Task, 10/31/23:24:00 EST, Constant order Nursing Task, 10/31/23 21:50:00 EST, Constant order Nursing Task, 10/31/23:24:00 EST, Constant order Oxygen Therapy, SpO2 goal 90% or greater, PRN, Nohemy FISHERPaulina-C PSO Place in Observation, Observation, Observation, Maurisio Nogueira DO, 10/31/23 21:50:00 EST, 10/31/23 21:50:00 EST, 1 midnight or less Resuscitation Status, 10/31/23 21:50:00 EST, Full Code RT Eval and Treat Protocol, 10/31/23 21:50:00 EST, Stop date 10/31/23 21:50:00 EST, Paulina Duffy-Deb Saline Lock Insert, 10/31/23 21:50:00 EST, Once, Stop date 10/31/23 21:50:00 EST Sequential Compression Devices (SCD's), 10/31/23 21:50:00 EST, Constant Order, Intermittent pneumatic compression, 10/31/23 21:50:00 EST Up ad Loren, 10/31/23 21:50:00 EST, Constant Order, 10/31/23 21:50:00 EST Vital Signs, 10/31/23 21:50:00 EST, Constant order, every 4 hrs Weight, 10/31/23 21:50:00 EST, every morning Extracted from: Title:ED Provider Note Author:Landon Gonzales MD Date:10/31/23 1.??Hypoxic respiratory fail ure??J96.91 2.??Influenza A??J10.1 3.??Diabetes, type I??E10.9 Orders: Sodium Chloride 0.9% 4,125 mL, Total Volume (mL): 4,125, 4,125 mL, Soln-IV, Hydration Bolus, Once, Start Date: 10/31/23 16:28:00 EST, 137.5 kg, Populate Charting Weight From Order, 2.39, m2 Blood Culture, Blood, Stat collect, ST - Stat, 10/31/23 16:28:00 EST, Once, Nurse collect, Print Label Blood Culture, Blood, Stat collect, ST - Stat, 10/31/23 16:52:00 EST, Once, Nurse collect, Print Label Communication Order, 10/31/23 16:28:00 EST Decision to Admit, 10/31/23 18:01:00 EST, Medical Unit, Medicine-General, Maurisio Nogueira DO Nursing Task, 10/31/23 16:28:00 EST, Stop date 10/31/23 16:28:00 EST Urine Culture, Urine, Stat collect, ST - Stat, 10/31/23 16:28:00 EST, Once, Nurse collect Future Appointments Appointment Date:11/06/2023 04:00:00 PM Scheduled Provider:Shila Krueger Location:[facility] Home Appointment Type:Care Coordination Follow-Up 60 ([facility]) Future Scheduled Tests Laboratory* Basic Metabolic Panel 05/29/23 * CBC w/ Diff 05/01/23 * Comprehensive Metabolic Panel 08/16/23 * Uric Acid 08/16/23 Radiology* XR Chest 2 Views 10/31/23 * XR Spine Lumbosacral 4+ Views 02/27/23 * NM Myocardial Rest Stress 2 Day Protocol 05/29/23 Functional Status 11/01/23 Dinner Percent 100 11/01/23 Living Environment No Living Environmen t Information Available Lives In Multilevel home Lives With Family Living Situation Home independently, Home with family FPC Barriers None 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, 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, 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, Home management, Meal preparation Current Home Treatments CPAP Home Equipment Blood glucose monito r Special Services and Community Resources Disease management Number of Stairs Inside 12 Number of Stairs Outside 2 11/01/23 Lunch Percent 100 11/01/23 Breakfast Percent 100 11/01/23 Activity Status ADL Up to toilet 10/31/23 Family Member Travel History No recent t ravel Recent Travel History No recent travel Immunizations Given and Recorded Vaccine Date Status [...] as needed for wheezing, # 8.5 g, 0 Refill(s), Pharmacy: [facility], 149, cm, 11/02/23 8:54:00 EST, Height, 137.5, kg, 10/31/23 23:35:00 EST, Weight Dosing Start Date: 11/02/23 Status: Ordered allopurinol 100 mg oral tablet 100 mg = 1 tab, Oral, Daily, # 90 tab, 0 Refill(s), Pharmacy: [place] [id number], 149, cm, 10/13/23 16:49:00 EST, Height, 137.15, [...] instructions, # 500 EA, 0 Refill(s), Pharmacy: [facility] Start Date: 09/08/22 Status: Ordered cetirizine 10 mg oral tablet 1 tab, Oral, BID, # 60 tab, 0 Refill(s), Pharmacy: [facility], 149, cm, 07/08/23 18:54:00 EDT, Height/Length Dosing, 133.2, kg, 07/25/23 10:54:00 EST, Weight Dosing Start Date: 09/12/23 Status: Ordered colchicine 0.6 mg oral tablet 0.6 mg = 1 tab, Oral, BID, # 60 tab, 0 Refill(s), Pharmacy: [id number], 149, cm, 10/13/23 16:49:00 EST, Height, 137.15, kg, 10/23/23 9:18:00 EST, Weight Dosing Start Date: 10/24/23 Status: Ordered Dexcom CGM- change q10 days [...] HumaLOG Mina KwikPen 100 units/mL injectable solution 40 units =, Subcutaneous, every morning, with breakfast if BG is 230 or higher, 0 Refill(s) Start Date: 07/09/23 Status: Ordered [...] Pharmacy: [id number], 149, cm, 10/13/23 16:49:00 EST, Height, 133, kg, 10/13/23 16:54:00 EST, Weight Dosing Start Date: 10/15/23 Status: Ordered ONETOUCH VERIO FLEX KIT ONETOUCH VERIO FLEX KIT, 1 each by [facility]. (non drug: combo route) route 4 times daily. Start Date: 03/02/22 Status: Ordered ONETOUCH VERIO MARLENE ONETOUCH VERIO MARLENE, Test blood glucose withone new test strip 4 times daily Start Date: 03/02/22 Status: Ordered Tamiflu 75 mg oral capsule 75 mg = 1 cap, Oral, BID, # 6 cap, 0 Refill(s), Pharmacy: [id number], 149, cm, 11/02/23 8:54:00 EST, Height, 137.5, kg, 10/31/23 23:35:00 EST, Weight Dosing Start Date: 11/02/23 Stop Date: 11/05/23 Status: Ordered torsemide 20 mg oral tablet 3 tab, Oral, BID, TWICE DAIY., # 180 tab, 3 Refill(s), Pharmacy: [id number], 149, cm, 07/08/23 18:54:00 EDT, Height/Length Dosing, 133.2, kg, 07/25/23 10:54:00 EST, Weight Dosing Start Date: 08/06/23 Status: Ordered vancomycin 125 mg oral capsule See Instructions, 1 capsule 4 times daily for 10 additional days then 1 capsule 3 times daily for 5days then 2 times daily for 5 days then 1 time daily., # 70 cap, 0 Refill(s), Pharmacy: [id number], 149, cm, 10/13/23 16:49:00 EST, Height, 133, kg, 10/13/23 16:54:00 EST, Weight Dosing Start Date: 10/16/23 Status: Ordered [facility] Probiotic [facility] Probiotic, 1, [...] Results Laboratory List Name Date Glucose POCT 11/02/23 Glucose POCT 11/02/23 Basic Metabolic Panel 11/02/23 CBC w/o Diff 11/02/23 Magnesium Level 11/02/23 Glucose POCT 11/02/23 Basic Metabolic Panel 11/01/23 CBC w/o Diff 11/01/23 Magnesium Level 11/01/23 Lactic Acid 10/31/23 SARS-CoV-2 (COVID-19)/Flu/RSV (GeneXpert ) 10/31/23 CBC w/ Diff 10/31/23 Comprehensive Metabolic Panel 10/31/23 Lactic Acid 10/31/23 Automated Diff 10/31/23 Most recent to oldest [Reference Range]: 1 2 3 WBC [5.0-10.0 x10^3/mcL] 4.4 x10^3/mcL *LOW* (11/02/23 7:10 AM) 3.0 x10^3/mcL *LOW* (11/01/23 7:24 AM) 4.0 x10^3/mcL *LOW* (10/31/23 4:17 PM) RBC [4.1-5.3 x10^6/mcL] 4.0 x10^6/mcL *LOW* (11/02/23 7:10 AM) 3.5 x10^6/mcL *LOW* (11/01/23 7:24 AM) 4.1 x10^6/mcL (10/31/23 4:17 PM) Neutro Auto [40.0-75.0 %] 71.2 % (10/31/23 4:17 PM) Lymph Auto [20.0-50.0 %] 16.5 % *LOW* (10/31/23 4:17 PM) [place] Auto [2.0-15.0 %] 6.8 % (10/31/23 4:17 PM) Basophil Auto [0.0-1.0 %] 0.5 % (10/31/23 4:17 PM) BUN [7-18 mg/dL] 16 mg/dL (11/02/23 7:10 AM) 16 mg/dL (11/01/23 7:24 AM) 16 mg/dL (10/31/23 4:17 PM) Glucose POC [74-106 mg/dL] 382 mg/dL *CRIT* (11/02/23 12:03 PM) 177 mg/dL *HI* (11/02/23 8:07 AM) 81 mg/dL (11/02/23 5:34 AM) Glucose Level [74-106 mg/dL] 121 mg/dL *HI* (11/02/23 7:10 AM) 109 mg/dL *HI* (11/01/23 7:24 AM) 190 mg/dL 1 *HI* (10/31/23 4:17 PM) Potassium Level [3.5-5.1 mmol/L] 3.9 mmol/L (11/02/23 7:10 AM) 3.8 mmol/L (11/01/23 7:24 AM) 4.1 mmol/L (10/31/23 4:17 PM) MCV [80.0-96.0 fL] 90.9 fL (11/02/23 7:10 AM) 91.4 fL (11/01/23 7:24 AM) 87.7 fL (10/31/23 4:17 PM) AST [15-37 unit/L] 340 unit/L *HI* (10/31/23 4:17 PM) ALT [14-59 unit/L] 308 unit/L *HI* (10/31/23 4:17 PM) MCHC [31.0-35.0 g/dL] 32.3 g/dL (11/02/23 7:10 AM) 32.4 g/dL (11/01/23 7:24 AM) 33.7 g/dL (10/31/23 4:17 PM) Sodium Level [136-145 mmol/L] 143 mmol/L (11/02/23 7:10 AM) 143 mmol/L (11/01/23 7:24 AM) 137 mmol/L (10/31/23 4:17 PM) Hct [37.0-47.0 %] 35.9 % *LOW* (11/02/23 7:10 AM) 31.8 % *LOW* (11/01/23 7:24 AM) 36.2 % *LOW* (10/31/23 4:17 PM) Calcium Level [8.5-10.1 mg/dL] 9.1 mg/dL (11/02/23 7:10 AM) 8.6 mg/dL (11/01/23 7:24 AM) 9.9 mg/dL (10/31/23 4:17 PM) Albumin Level [3.4-5.0 g/dL] 3.7 g/dL (10/31/23 4:17 PM) Protein Total [6.4-8.2 g/dL] 7.8 g/dL (10/31/23 4:17 PM) MCH [26.0-32.0 pg] 29.4 pg (11/02/23 7:10 AM) 29.6 pg (11/01/23 7:24 AM) 29.5 pg (10/31/23 4:17 PM) Magnesium Level [1.8-2.4 mg/dL] 1.6 mg/dL *LOW* (11/02/23 7:10 AM) 1.8 mg/dL (11/01/23 7:24 AM) Neutro Absolute 2.8 x10^3/mcL *NA* (10/31/23 4:17 PM) Bilirubin Total [0.2-1.0 mg/dL] 1.1 mg/dL *HI* (10/31/23 4:17 PM) Hgb [12.0-16.0 g/dL] 11.6 g/dL *LOW* (11/02/23 7:10 AM) 10.3 g/dL *LOW* (11/01/23 7:24 AM) 12.2 g/dL (10/31/23 4:17 PM) Alk Phos [46-146 unit/L] 287 unit/L *HI* (10/31/23 4:17 PM) Platelets [130-450 x10^3/mcL] 199 x10^3/mcL (11/02/23 7:10 AM) 165 x10^3/mcL (11/01/23 7:24 AM) 201 x10^3/mcL (10/31/23 4:17 PM) CO2 [21-32 mmol/L] 31 mmol/L (11/02/23 7:10 AM) 26 mmol/L (11/01/23 7:24 AM) 26 mmol/L (10/31/23 4:17 PM) Lactic Acid Lvl [0.7-2.0 mmol/L] 1.2 mmol/L (10/31/23 9:10 PM) 2.8 mmol/L 2 *CRIT* (10/31/23 4:17 PM) eGFR Non-AA [>=60] 123 (11/02/23 7:10 AM) 92 (11/01/23 7:24 AM) 92 (10/31/23 4:17 PM) eGFR AA [>=60] 123 (11/02/23 7:10 AM) 92 (11/01/23 7:24 AM) 92 (10/31/23 4:17 PM) Chloride Level [98-107 mmol/L] 102 mmol/L (11/02/23 7:10 AM) 108 mmol/L *HI* (11/01/23 7:24 AM) 101 mmol/L (10/31/23 4:17 PM) RDW-CV [11.5-14.5 %] 15.1 % *HI* (11/02/23 7:10 AM) 15.2 % *HI* (11/01/23 7:24 AM) 14.6 % *HI* (10/31/23 4:17 PM) Imm Gran Auto [0.0-0.9 %] 0.5 % (10/31/23 4:17 PM) Creatinine Level [0.55-1.02 mg/dL] 0.69 mg/dL (11/02/23 7:10 AM) 0.89 mg/dL (11/01/23 7:24 AM) 0.89 mg/dL (10/31/23 4:17 PM) 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 Unknown *NA* (10/31/23 4:28 PM) Symptomatic as defined by CDC? Unknown *NA* (10/31/23 4:28 PM) Hospitalized due to COVID-19? Unknown *NA* (10/31/23 4:28 PM) In ICU? Unknown *NA* (10/31/23 4:28 PM) Group care resident? Unknown *NA* (10/31/23 4:28 PM) status? Unknown *NA* (10/31/23 4:28 PM) SARS-CoV-2(Covid19)PCR(GXper t COVFLURSV) [Negative] Negative (10/31/23 4:28 PM) Flu A ([facility]pert COVFLURSV) [Negative] Positive *ABN* (10/31/23 4:28 PM) RSV ([facility] COVFLURSV) [Negative] Negative (10/31/23 4:28 PM) Flu B ([facility] COVFLURSV) [Negative] Negative (10/31/23 4:28 PM) Eos, Auto [1.0-6.0 %] 4.5 % (10/31/23 4:17 PM) 1Result Comment: Sample appears lipemic, results may be affected 2Result Comment: Called to and verbally verified by Iliana Calles at 10/31/2023 16:24:48 EST. Orders for Microbiology Reports Name Date Blood Culture 10/31/23 Blood Culture 10/31/23 Urine Culture 10/31/23 Microbiology Reports TEST:Blood Culture STATUS:Order in Progress BODY SITE: SOURCE:Blood COLLECTED DATE/TIME:10/31/23 4:50 PM PRELIMINARY REPORT No growth at 24 hours. TEST:Blood Culture STATUS:Order in Progress BODY SITE: SOURCE:Blood COLLECTED DATE/TIME:10/31/23 4:40 PM PRELIMINARY REPORT No growth at 24 hours. TEST:Urine Culture STATUS:Auth (Verified) BODY SITE: SOURCE:Urine COLLECTED DATE/TIME:10/31/23 4:28 PM FINAL REPORT <10,000 cfu/ml Mixed Gram Positive [place] Vital Signs Most recent to oldest [Reference Range]: 1 2 3 Temperature Temporal Artery [36-38 Deg C] 36.8 Deg C (11/02/23 12:06 PM) 36.9 Deg C (11/02/23 8:10 AM) 35.6 Deg C *LOW* (11/02/23 1:16 AM) Temperature Temporal Artery (DegF) [97.3-100 Deg F] 96.08 Deg F *LOW* (11/02/23 1:16 AM) 97.7 Deg F (10/31/23 10:01 PM) 103.64 Deg F *HI* (10/31/23 4:00 PM) Peripheral Pulse Rate [60-100 bpm] 99 bpm (11/02/23 12:06 PM) 98 bpm (11/02/23 8:10 AM) 94 bpm (11/02/23 1:16 AM) Heart Rate Monitored [60-100 bpm] 98 bpm (11/02/23 11:05 AM) 96 bpm (11/02/23 7:34 AM) 101 bpm *HI* (11/01/23 7:35 PM) Respiratory Rate [12-24 br/min] 18 br/min (11/02/23 12:06 PM) 18 br/min (11/02/23 11:05 AM) 18 br/min (11/02/23 8:10 AM) Blood Pressure [90-140/60-90 mmHg] 122/81mmHg (11/02/23 12:06 PM) 130/80mmHg (11/02/23 8:10 AM) 94/51mmHg (11/02/23 1:16 AM) Mean Arterial Pressure, Cuff [65-140 mmHg] 65 mmHg (11/02/23 1:16 AM) 76 mmHg (10/31/23 10:01 PM) 82 mmHg (10/31/23 9:42 PM) Mean Arterial Pressure Cuff 91 mmHg (11/02/23 8:10 AM) 100 mmHg (11/01/23 8:15 PM) 107 mmHg (11/01/23 4:29 PM) Weight 136.4 kg (11/01/23 8:09 AM) 137.5 kg (10/31/23 11:33 PM) Weight Measured (lbs) 300.71 lb (11/01/23 8:09 AM) Weight Dosing 137.500 kg (10/31/23 11:33 PM) Weight Estimated 137.5 kg (10/31/23 3:36 PM) Height 149 cm (11/02/23 8:54 AM) 149 cm (10/31/23 11:33 PM) BSA Measured 2.39 m2 (10/31/23 11:33 PM) BSA Estimated 0 m2 (10/31/23 11:33 PM) Body Mass Index 61.93 kg/m2 (10/31/23 11:33 PM) Body Mass Index Estimated 61.93 kg/m2 (10/31/23 3:36 PM) Height/Length Estimated 149 cm (10/31/23 3:36 PM) Social History Social History Type Response Tobacco Never tobacco user T obacco Use:. Sex Female Hospital Discharge Instructions Patient Education 11/02/2023 10:03:05 Home Oxygen Use, Adult Home Oxygen Use, Adult When a medical condition keeps you from getting enough oxygen, your health care provider may have you use extra oxygen at home. Your health care provider will let you know: ??? When to use oxygen. ??? How much oxygen to use. The amount is set in liters per minute (LPM or L/M). ??? How long to use oxygen. Home oxygen can be given through: ??? A mask. This covers the nose and mouth or covers a tracheotomy tube. ??? A nasal cannula. This is a device or tube that goes in the nostrils. ??? A transtracheal catheter. This is a small, thin tube placed through the neck and into the windpipe (trachea). ??? A breathing tube (tracheostomy tube) that is surgically placed in the windpipe. These devices have tubing that connects to an oxygen source, such as: ??? A tank. Tanks hold oxygen in gas form. The tank must be replaced when the oxygen is used up. ??? A liquid oxygen device. This holds oxygen in liquid form. This must be replaced when the oxygenis used up. ??? An oxygen concentrator machine. This filters oxygen in the room. It uses electricity so you must have a backup oxygen tank in case the power goes out. Work with your health care provider to find equipment that works best for you and your lifestyle. What are the risks? Your health care provider will talk with you about risks. These may include: ??? Fire. This can happen if the oxygen is exposed to a heat source, flame, or spark. ??? Injury to the skin. This can happen if liquid oxygen touches the skin. Pressure sores may occurif the oxygen tubing presses on the skin. ??? Damage to the lungs or other organs. This can happen from getting too little or too much oxygen. Supplies needed: To use oxygen, you will need: ??? A mask, nasal cannula, transtracheal catheter, or tracheostomy. ??? An oxygen tank, a liquid oxygen device, or an oxygen concentrator. Your health care provider may recommend: ??? A humidifier. This device adds moisture to the oxygen. ??? A pulse oximeter. This device measures the percentage of oxygen in your blood. How to use oxygen You will be shown how to use your oxygen device. Follow the instructions, which may look something like this: 1. Wash your hands with soap and water for at least 20 seconds. 2. Turn on the oxygen. Make sure the oxygen unit is working right. To do this: ??? Place the end of the oxygen tubing in a cup of water before connecting it to the nasal cannula,mask, or transtracheal catheter. The water will bubble if oxygen is flowing. 3. Place one end of the oxygen tubing into the port on the tank, device, or machine. Connect the other end to the nasal cannula, mask, or transtracheal catheter. 4. Turn the liter-flow setting on the machine to the level you are told. 5. Place the nasal cannula in your nose, or place the mask over your mouth and nose or tracheostomytube. 6. Turn off the oxygen when you are not using it. How to clean and care for the oxygen supplies Clean or replace your oxygen equipment and supplies as told by the nuclear medicine medical director company that supplies the equipment. Safety tips Fire safety tips ??? Keep your oxygen and oxygen supplies at least 6 ft (2 m) away from sources of heat, flames, andsparks at all times. ??? Do not allow smoking near your oxygen. Put up no smoking signs in your home. Avoid smoking areas in public. ??? Do not use materials that can burn (are flammable) while you use oxygen. This includes: ??? Petroleum jelly. ??? Hand corporate executive. ??? Rubbing alcohol. ??? Hair spray or other aerosol sprays. ??? Keep a fire extinguisher nearby. Tell your fire department that you have oxygen in your home. ??? Test your home smoke detectors often. Traveling ??? Secure your oxygen tank in the vehicle so that it does not move. Follow instructions from your nuclear medicine medical director company about how to safely secure your tank. ??? Have enough oxygen for the amount of time you will be away from home. ??? If you plan to travel by public transportation such as airplane, train, bus, or boat, contact the company to arrange a portable oxygen delivery system. You may need documents from your health care provider and nuclear medicine medical director company before you travel. General safety tips ??? Keep extra supplies on hand, including extra tubing and an extra cannula or mask. ??? If you use an oxygen cylinder, keep it in a stand or secure it to an object that will not move. ??? If you use liquid oxygen, always keep the container upright. ??? If you use an oxygen concentrator: ??? Tell your electric company. Make sure you are given priority service if your power goes out. ??? Avoid using extension cords if possible. ??? Keep an extra supply of backup oxygen tanks. Follow these instructions at home: ??? Use oxygen only as told by your health care provider. ??? Do not use alcohol or other drugs that make you relax (sedating drugs) unless told. They can slow down your breathing rate and make it hard to get in enough oxygen. ??? Know how and when to order a refill of oxygen. Plan for holidays when you may not be able to get a prescription filled. ??? Use water-based lubricants on your lips or nostrils. Do not use oil-based products like petroleum jelly. ??? Ask your health care provider how to prevent skin irritation on your cheeks or behind your ears. Contact a health care provider if: ??? You are more tired than normal and have little energy. ??? You have dry or irritated skin in your nose or on your face. ??? You have nosebleeds. ??? You are restless, irritable, or anxious. ??? You get headaches often. ??? You are not sleeping well. Get help right away if: ??? You have trouble breathing. ??? You are confused. ??? You are sleepy all the time. ??? You have blue lips or fingernails. These symptoms may be an emergency. Get help right away. Call 911. ??? Do not wait to see if the symptoms will go away. ??? Do not drive yourself to the hospital. This information is not intended to replace advice given to you by your health care provider. Make sure you discuss any questions you have with your health care provider. Document Revised: 03/27/2023 Document Reviewed: 03/27/2023 [employer] Patient Education ?? 2022 [employer] 11/02/2023 09:59:04 Influenza, Adult Influenza, Adult Influenza, also called the flu, is a viral infection that mainly affects the respiratory tract. This includes the lungs, nose, and throat. The flu spreads easily from person to person (is contagious). It causes common cold symptoms, along with high fever and body aches. What are the causes? This condition is caused by the influenza virus. You can get the virus by: ??? Breathing in droplets that are in the air from an infected person's cough or sneeze. ??? Touching something that has the virus on it (has been contaminated) and then touching your mouth, nose, or eyes. What increases the risk? The following factors may make you more likely to get the flu: ??? Not washing or sanitizing your hands often. ??? Having close contact with many people during cold and flu season. ??? Touching your mouth, eyes, or nose without first washing or sanitizing your hands. ??? Not getting an annual flu shot. You may have a higher risk for the flu, including serious problems, such as a lung infection (pneumonia), if you: ??? Are older than 65. ??? Are . ??? Have a weakened disease-fighting system (immune system). This includes people who have HIV or AIDS, are on chemotherapy, or are taking medicines that reduce (suppress) the immune system. ??? Have a long-term (chronic) illness, such as heart disease, kidney disease, diabetes, or lung disease. ??? Have a liver disorder. ??? Are severely overweight (morbidly obese). ??? Have anemia. ??? Have asthma. What are the signs or symptoms? Symptoms of this condition usually begin suddenly and last 4???14 days. These may include: ??? Fever and chills. ??? Headaches, body aches, or muscle aches. ??? Sore throat. ??? Cough. ??? Runny or stuffy (congested) nose. ??? Chest discomfort. ??? Poor appetite. ??? Weakness or fatigue. ??? Dizziness. ??? Nausea or vomiting. How is this diagnosed? This condition may be diagnosed based on: ??? Your symptoms and medical history. ??? A physical exam. ??? Swabbing your nose or throat and testing the fluid for the influenza virus. How is this treated? If the flu is diagnosed early, you can be treated with antiviral medicine that is given by mouth (orally) or through an IV. This can help reduce how severe the illness is and how long it lasts. Taking care of yourself at home can help relieve symptoms. Your health care provider may recommend: ??? Taking iesa-gbt-gnglewz medicines. ??? Drinking plenty of fluids. In many cases, the flu goes away on its own. If you have severe symptoms or complications, you may be treated in a hospital. Follow these instructions at home: Activity ??? Rest as needed and get plenty of sleep. ??? Stay home from work or school as told by your health care provider. Unless you are visiting your health care provider, avoid leaving home until your fever has been gone for 24 hours without taking medicine. Eating and drinking ??? Take an oral rehydration solution (ORS). This is a drink that is sold at pharmacies and retail stores. ??? Drink enough fluid to keep your urine pale yellow. ??? Drink clear fluids in small amounts as you are able. Clear fluids include water, ice chips, fruit juice mixed with water, and low-calorie sports drinks. ??? Eat bland, zolx-zz-gqdiqn foods in small amounts as you are able. These foods include bananas, applesauce, rice, lean meats, toast, and crackers. ??? Avoid drinking fluids that contain a lot of sugar or caffeine, such as energy drinks, regular sports drinks, and soda. ??? Avoid alcohol. ??? Avoid spicy or fatty foods. General instructions ??? Take vtar-gvv-dbrvvvd and prescription medicines only as told by your health care provider. ??? Use a cool mist humidifier to add humidity to the air in your home. This can make it easier to breathe. ??? When using a cool mist humidifier, clean it daily. Empty the water and replace it with clean water. ??? Cover your mouth and nose when you cough or sneeze. ??? Wash your hands with soap and water often and for at least 20 seconds, especially after you cough or sneeze. If soap and water are not available, use alcohol-based hand corporate executive. ??? Keep all follow-up visits. This is important. How is this prevented? Get an annual flu shot. This is usually available in late summer, fall, or winter. Ask your health care provider when you should get your flu shot. ??? Avoid contact with people who are sick during cold and flu season. This is generally fall and winter. Contact a health care provider if: ??? You develop new symptoms. ??? You have: ??? Chest pain. ??? Diarrhea. ??? A fever. ??? Your cough gets worse. ??? You produce more mucus. ??? You feel nauseous or you vomit. Get help right away if you: ??? Develop shortness of breath or have difficulty breathing. ??? Have skin or nails that turn a bluish color. ??? Have severe pain or stiffness in your neck. ??? Develop a sudden headache or sudden pain in your face or ear. ??? Cannot eat or drink without vomiting. These symptoms may represent a serious problem that is an emergency. Do not wait to see if the symptoms will go away. Get medical help right away. Call your local emergency services (911 in the [place] Do not drive yourself to the hospital. Summary ??? Influenza, also called the flu, is a viral infection that primarily affects your respiratory tract. ??? Symptoms of the flu usually begin suddenly and last 4???14 days. ??? Getting an annual flu shot is the best way to prevent getting the flu. ??? Stay home from work or school as told by your health care provider. Unless you are visiting your health care provider, avoid leaving home until your fever has been gone for 24 hours without taking medicine. ??? Keep all follow-up visits. This is important. This information is not intended to replace advice given to you by your health care provider. Make sure you discuss any questions you have with your health care provider. Document Revised: 04/15/2021 Document Reviewed: 04/15/2021 [employer] Patient Education ?? 2022 [employer]. Follow Up Care 10/31/2023 15:36:44 With:Jamila Archer MD Address: [address] [place] [address] [place] [address] When:11/12/2023 09:40:00 Comments:Hospital follow up Pharmacology Note * Lissette Walker: PERFORM Event Display: Pharmacy Note Authored Date: TelePharmacy Home Medication List Update for Medication Reconciliation ??? Person Interviewed: pt ??? Quality of Interview: good ??? Sources used to compile medication list: Cerner medication list, SureScripts, patient list ??? Changes made to home medication list: o Additions: ??? Dexcom CGM applied to skin and changed [id number] ??? Probiotic po qday (pt unsure of brand) o Deletions/Discontinuations ??? Azithromycin ??? Benzonatate (both orders) ??? Cefdinir o Changes: ??? Lunchtime HumULIN dose decreased from 180 units to 150 units ??? Lisinopril changed from qday to qhs Additional Notes: ??? Pt not currently taking allopurinol due to beginning 30-day course of colchicine four days ago. ??? Pt recently prescribed Mounjaro but unable to get so far due to insurance causing delays. ??? Pt reports she is still taking vancomycin qid even though dispense hx shows rx was filled on 10/16/23. ??? Pt's last course of fluconazole was approximately 10/23 and 10/26. ??? Pt requesting more benzonatate due to still having cough despite finishing azithromycin and cefdinir around 10/23/23. Recommended Changes: ??? Recommend holding atorvastatin and considering holding colchicine until LFTs return to WNL. The home medication list is now updated to the best of my knowledge and is ready to be reconciled by the provider. Please contact the TelePharmacy Medication Reconciliation Pharmacist at for any questions. Lissette Walker, Sona.D, [facility] Discharge instructions * Antonietta Neil: PERFORM Event Display: Discharge Instructions Authored Date: [id number] MARIELOS MIRAMONTES :1995 Age:28 years Sex:Female Visit Date:10/31/2023 Primary Care Physician: Jamila Archer MD Hospital Discharge Instructions We would like to thank you for allowing us to assist you with your healthcare needs. The following includes patient education materials and information regarding your injury/illness. Your Next Steps Discharge Orders Discharge Diet Instruction, Diabetic Diet Scheduled Future Appointments Sunday 3:00 PM EST ?? With: Sweetie Culver Where: [address] [address] Status: Confirmed Sunday 4:00 PM EST ?? With: Shila Krueger Where: [address] [address] Status: Confirmed Sunday 10:00 AM EDT ?? Where: [facility] Cardiology Status: Confirmed Sunday 8:20 AM EDT ?? With: Jaida Lamb MARINE ENGINEERING PROFESSOR Where: [facility] [address] [place] [address] Status: Confirmed Sunday 11:30 AM EDT ?? With: Sully Singleton MARINE ENGINEERING PROFESSOR Where: [facility] [address] [place] [address] Status: Confirmed Follow Up Appointments Follow Up with??Jamila Archer MD When:??11/12/2023 10:40 AM EST Why: Hospital follow up Where: [address] [place] [address] [place] [address]- The Following Equipment Has Been Ordered for You Oxygen through [facility] 4/Lpm with exertion/ambulation and 1/Lpm at rest. The Following Services Have Been Arranged for You Special Services and Community Resources - Disease management Continue working with Clinical Education Assistant and Chronic Care Managers on Diabetes Management The Following Treatments Have Been Arranged for You Current Home Treatments - CPAP Medications What How Much When Why Instructions Next Dose New albuterol (albuterol 90 mcg/ inh aerosol inhaler) 1 Puffs Inhale (breathe in) Every 6 hours as needed for as needed for wheezing Pickup at [facility] as needed New oseltamivir (Tamiflu 75 mg oral capsule) 1 Capsules Oral (given by mouth) 2 times a day Duration: 3 Days Pickup at [facility] 11/02 @ 9pm Changed insulin lispro (HumaLOG Mina KwikPen 100 units/ mL injectable solution) 40 Units Subcutaneous (under the skin) Every morning with breakfast if BG is 230 or higher ?? Resume home dose Changed lisinopril (lisinopril 5 mg oral tablet) 1 tab Oral (given by mouth) Every night at bedtime Last dose 11/02 @ 9am Resume home dose Unchanged allopurinol (allopurinol 100 mg oral tablet) 1 tab Oral (given by mouth) Every day Resume home dose Unchanged atorvastatin (atorvastatin 40 mg oral tablet) 1 tab Oral (given by mouth) Every day 11/02??@ 5pm Unchanged cetirizine (cetirizine 10 mg oral tablet) 1 tab Oral (given by mouth) 2 times a day 11/02 @ 9pm Unchanged colchicine (colchicine 0.6 mg oral tablet) 1 tab Oral (given by mouth) 2 times a day 11/02 @ 9pm Unchanged Durable Medical Equipment for Prescription (B-D UF III SHORT PEN NEED MIS) See instructions Use one new pen needle for each insulin injection 5 to 7 times per day as directed in case of pump malfunction ?? Unchanged Durable Medical Equipment for Prescription (Dexcom CGM- change q10 days) See instructions Duration: 10 Days Unchanged elderberry 350 Milligrams Oral (given by mouth) Every day resume home dose Unchanged glucagon (Glucagon Emergency Kit for Low [...] in hospital and was still hypoglycemic ?? Resume home dose Unchanged levothyroxine 250 Micrograms Oral (given by mouth) Every day 11/03 @ 7am Unchanged Other Prescription (Wikipixel VERIO FLEX KIT) 1 each by [facility]. (non drug: combo route) route 4 times daily. ?? Unchanged Other Prescription (ONETOUCH VERIO MARLENE) Test blood glucose withone new test strip 4 times daily ?? Unchanged Other Prescription (Azaleos Probiotic) 1 Oral (given by mouth) Every day Resume home dose Unchanged torsemide (torsemide 20 mg oral tablet) 3 tab Oral (given by mouth) 2 times a day TWICE ??DAIY. ?? 11/02 @ 5pm Unchanged vancomycin (vancomycin 125 mg oral capsule) See instructions 1 capsule 4 times daily for 10 additional days then 1 capsule 3 times daily for 5 days then 2 timesdaily for 5 days then 1 time daily. ?? Twice daily until 11/05 on that day start one capsule per day for 5 days. Then finished. Pharmacy Information [facility]: [address] [id number] [phone] ?? What How Much When Comments Stop Taking fluconazole (fluconazole 150 mg oral tablet) 2 tab Oral (given by mouth) Once Take 1 tab now and take second dose 72 hours after ?? Your Summary Your Care Team Admitting Physician - Maurisio Nogueira DO Attending Physician - Maurisio Nogueira DO Primary Care Physician - Jamila Archer MD Your Diagnosis Hypoxic respiratory failure Influenza A Sepsis Type 2 diabetes mellitus Diabetes, type I Type 1 diabetes Morbid obesity Obstructive sleep apnea syndrome C. difficile colitis HLD (hyperlipidemia) Transaminitis Discharge Vitals Temperature??(Temporal Artery) 98.4 ??F (36.9 ??C) Heart Rate??(Peripheral) 98 Respiratory Rate?? 18 Blood Pressure?? 130/80?? Height?? 58.66 in (149 cm) Allergies rOPINIRole morphine oxyCODONE Patient/Asphalt Dauber Signature Patient Name:MARIELOS MIRAMONTES I have received this information and my questions have been answered. Patient/Asphalt Dauber Name: Patient/Asphalt Dauber Signature: Relationship to Patient: Witness Name/Signature: Date: Electronically Signed on: 11/02/2023 11:45 ESTSigned by:ELOISE online advertising manager Note * Antonietta Neil D: PERFORM Event Display: Case Management Note Authored Date: [id number] Discharge instructions/education on influenza reviewed with patient at bedside. Patient engaged in education and able to verbalize teach back of reviewed material. Patient is aware of follow-up with PCP Gianni on 11/11-patient provided with a work note stating that she is not cleared to return to work until seen by PCP. Patient is aware of new oxygen requirement 4 L/min with exertion and 1 L/min at rest ordered through [facility]. Patient is waiting for delivery of oxygen at [facility]. Patient signed form to drive herself home. Patient still has IV in place primary RN aware and will removed prior to patient's departure. Patient does have home medications and the bulk section and primary RN will return these to patient prior to her departure. Patient denies any personal belongings in the [facility]. Patient is aware of new medications for pickup schedule and indication reviewed. Contact information provided. Patient is aware she has follow-up with dietitian and chronic carecoordinator for diabetes education on 11/06. EKG study * Event Display: Telemetry Strips Please click on link to view image. * Event Display: Telemetry Strips Please click on link to view image. * Event Display: Telemetry Strips Please click on link to view image. Respiratory therapy Hospital Progress note * Yeimy Schwartz: PERFORM, MODIFY Event Display: Respiratory Therapy Progress Note Authored Date: [id number] ??MARIELOS MIRAMONTES 28 Years Respiratory Shift Summary Breath Sounds: 0734: Clear Shift Treatments: 0734: Duoneb 1105: Duoneb Shift Events: 0734: Pt sating 96% on 2L nasal cannula. Weaned to 1L; SpO2 92%. Respiratory Protocol??Aerosol Therapy Assessment and Scoring Lung History (0) No Lung History and Non-Smoker Breath Sounds (0) Clear in all barnes Respiratory Rate (0) Less than or equal to 18 Modified Kathleen Scale or Observed Dyspnea (1) 1-2 With exertion Oxygen Therapy (1) 1-2 L/min Home Respiratory Medications (0) None Inhaler Use Assessment ? Clinically Stable? Yes? Can take a slow deep breath on command? Yes? Can perform a 3 second breath hold? Yes Respiratory total Score: 2 Respiratory Guidelines 0-2 pts - No Therapy indicated Electronically Signed on 11/02/23 11:53 AM Yeimy Schwartz * Rosalee Negro: PERFORM Event Display: Respiratory Therapy Progress Note Authored Date: [id number] * Krystyna Trevizo: PERFORM, MODIFY Event Display: Respiratory Therapy Progress Note Authored Date: [id number] MARIELOS MIRAMONTES 28 Years Respiratory Aerosol Therapy Assessment and Scoring 1935 Pt awake and alert sitting up in chair. Pt has diminished breath sounds that improved with Duoneb tx via SVN. Pt is on 1L NC and needs 4L NC during ambulation. Pt is in no distress, eating snacks, talking on the phone. Approx 2245 pt placed on 2L CPAP sat 100% Home Medication Routine: Lung History (0) No Lung History and Non-Smoker Breath Sounds (2) Intermittent wheezes or moderately diminished or crackles greater than 1/3 up back Respiratory Rate (1)??19-25 Modified Kathleen Scale or Observed Dyspnea (1) 1-2 With exertion Oxygen Therapy (1) 1-2 L/min Home Respiratory Medications (0) None Inhaler Use Assessment ? Clinically Stable? Yes? Can take a slow deep breath on command? Yes? Can perform a 3 second breath hold? Yes Respiratory total score: ??5 Respiratory Guidelines 5-9 pts - QID scheduled??and Q4 PRN for SOB Patient Respiratory Assessment and Treatments Electronically Signed on 11/02/23 04:16 AM Krystyna Trevizo Physician Emergency department Note * Landon Gonzales MD: MODIFY, PERFORM, MODIFY, MODIFY, MODIFY Event Display: ED Note Physician Authored Date: [id number] MARIELOS MIRAMONTES :1995 Age:28 years Sex:Female Visit Date:10/31/2023 Primary Care Physician: Jamila Archer MD Basic Information Time Seen: Landon Gonzales MD / 10/31/2023 16:10 Chief Complaint Pt w/ cough for two days, fever this am, took tylenol., never felt better. Presents SOB, unable to ambulate, 88% on RA, placed on oxygen in triage, 94% on 2L. Pt also endorses total body aches. History Of Present Illness: Patient presents emergency department??again for cough times today fever and shortness of breath.??Unable to ambulate and with an O2 sat of 88% on room air??she was placed on oxygen in triage. ??Reports??body aches.?? Reports cough nonproductive sputum. ??She was recently discharged from the hospital??and she was placed on vancomycin for C. difficile Review of Systems: Constitutional: No fevers, chills, sweats Eye: No recent visual problems ENT: No ear pain, nasal congestion, sore throat Respiratory: No shortness of breath, cough Cardiovascular: No Chest pain, palpitations, syncope Gastrointestinal: No nausea, vomiting, diarrhea Genitourinary: No hematuria Kamran/Lymph: Negative for bruising tendency, swollen lymph glands Endocrine: Negative for excessive thirst, excessive hunger Musculoskeletal: No back pain, neck pain, joint pain, muscle pain, decreased range of motion Integumentary: No rash, pruritus, abrasions Neurologic: Alert & oriented X 4 Psychiatric: No anxiety, depression Physical Exam Vitals & Measurements T:??39.8?C ??(Temporal Artery)?? HR:??125??(Peripheral)?? HR:??125??(Monitored)?? RR:??26?? BP:??106/60?? SpO2:??90%?? HT:??149??cm?? WT:??137.5??kg??(Estimated)?? BMI:??61.93?? Pain Score:??7?? O2 Flow Rate:??2?? O2 Therapy:??Nasal cannula?? General: Alert and oriented, well nourished, no [...] intact. Psychiatric: Cooperative, appropriate mood and affect. ` Medical Decision Making: MDM: Summary: Patient presents emergency department complaining of shortness of breath??she is a complicated patient who has??type I brittle insulin-dependent diabetes and morbid obesity??and chronic lung disease who??comes complaining of short of breath with a low oxygen saturation in the mid 80s??respirate??almost 30 with a heart rate of 125.?? Chest x-ray was done which does not show any infiltrates??but??labs??are done and show??that she has influenza A.?? She was treated immobilizations??but she will need to be admitted to the hospital for further management. ? Data Review Analysis All the data on this patient was reviewed by me including laboratory??and imaging studies??as well as bedside studies performed by me ?? Independent review of Studies Imaging Chest x-ray was done which shows no acute findings Lab: Labs are unremarkable except for mild hyperglycemia ?? Risk Stratification: Patient who is very??risk of comorbidities??and shortness of breath with a low oxygen saturation hypoxia will need to be admitted to hospital for further management ? Differential Diagnosis: 1.?? Asthma exacerbation 2.?? COPD exacerbation 3.?? Pneumonia 4.?? Influenza bronchitis 5. ? Consultants: ? Shared disposition: I spoke with Dr. Nogueira the hospitalist who agrees to admit the patient ?? Impression:? Procedure No Qualifying Data Assessment/Plan 1.??Hypoxic respiratory failure??J96.91 2.??Influenza A??J10.1 3.??Diabetes, type I??E10.9 Orders: Sodium Chloride 0.9% 4,125 mL, Total Volume (mL): 4,125, 4,125 mL, Soln-IV, Hydration Bolus, Once, Start Date: 10/31/23 16:28:00 EST, 137.5 kg, Populate Charting Weight From Order, 2.39, m2 Blood Culture, Blood, Stat collect, ST - Stat, 10/31/23 16:28:00 EST, Once, Nurse collect, Print Label Blood Culture, Blood, Stat collect, ST - Stat, 10/31/23 16:52:00 EST, Once, Nurse collect, Print Label Communication Order, 10/31/23 16:28:00 EST Decision to Admit, 10/31/23 18:01:00 EST, Medical Unit, Medicine-General, Maurisio Nogueira DO Nursing Task, 10/31/23 16:28:00 EST, Stop date 10/31/23 16:28:00 EST Urine Culture, Urine, Stat collect, ST - Stat, 10/31/23 16:28:00 EST, Once, Nurse collect Medication Reconciliation Unchanged allopurinol (allopurinol 100 mg oral tablet)1 tab Oral (given by mouth) every day. Refills: 0. ?? atorvastatin (atorvastatin 40 mg oral tablet)1 tab Oral (given by mouth) every day. ?? azithromycin (azithromycin 250 mg oral tablet)1 tab Oral (given by mouth) every day for 2 Days. Refills: 0. ?? benzonatate (Tessalon Perles 100 mg oral capsule)1 Capsules Oral (given by mouth) 3 times a day as needed as needed for cough for 14 Days. Refills: 0. ?? benzonatate (Tessalon Perles 100 mg oral capsule)2 Capsules Oral (given by mouth) 3 times a day as needed cough. Refills: 0. ?? cefdinir (cefdinir 300 mg oral capsule)1 Capsules Oral (given by mouth) every 12 hours for 7 Days. Refills: 0. ?? cetirizine (cetirizine 10 mg oral tablet)1 tab Oral (given by mouth) 2 times a day. Refills: 0. ?? colchicine (colchicine 0.6 mg oral tablet)1 tab Oral (given by mouth) 2 times a day. Refills: 0. ?? Durable Medical Equipment for Prescription (B-D UF III SHORT PEN NEED MIS)Use one new pen needle for each insulin injection 5 to 7 times per day as directed in case of pump malfunction. Refills: 0. ?? [id number] Milligrams Oral (given by mouth) every day. ?? fluconazole (fluconazole 150 mg oral tablet)2 tab Oral (given by mouth) once. Take 1 tab now and take second dose 72 hours after. Refills: 0. ?? glucagon (Glucagon Emergency Kit for Low Blood Sugar)follow instructions per kit; as needed low blood sugar. ?? insulin lispro (HumaLOG Mina KwikPen 100 units/mL injectable solution)30 Units Subcutaneous (under the skin) every morning. with breakfast. ?? insulin regular (HumuLIN R KwikPen (Concentrated) 500 units/mL subcutaneous solution)230 units of humilin 180 Units of humiln at lunch 100 Units of humilin at dinner, decrease dose and titrate as neccesary as half dose of insulin was given in hospital and was still hypoglycemic. ?? [id number] Micrograms Oral (given by mouth) every day. ?? lisinopril (lisinopril 5 mg oral tablet)1 tab Oral (given by mouth) every day. ?? Other Prescription (ONETOUCH VERIO FLEX KIT)1 each by [facility]. (non drug: combo route) route 4 times daily.. ?? Other Prescription (ONETOUCH VERIO MARLENE)Test blood glucose withone new test strip 4 times daily. ?? tirzepatide (Mounjaro 2.5 mg/0.5 mL subcutaneous solution)2.5 Milligrams Subcutaneous (under the skin) every week. rotate injection sites. Refills: 0. ?? torsemide (torsemide 20 mg oral tablet)3 tab Oral (given by mouth) 2 times a day. TWICE DAIY.. Refills: 3. ?? vancomycin (vancomycin 125 mg oral capsule)1 capsule 4 times daily for 10 additional days then 1 capsule 3 times daily for 5 days then 2 times daily for 5 days then 1 time daily.. Refills: 0. Problem List/Past Medical History Ongoing DEAN (acute kidney injury) Aortic stenosis Asthma Autoimmune thyroiditis Bilateral lower extremity edema C. difficile colitis C. difficile diarrhea Clostridioides difficile Constipation Developmental disorder Erythroderma HLD [...] fracture (12/22/2020)???Adenoidectomy (09/10/2013)???Tonsillectomy (09/10/2003) Medication Administration Given Sodium Chloride 0.9%, 4125 mL, Hydration Bolus levoFLOXacin, 750 mg, IV Piggyback Tylenol, 1000 mg, Oral Allergies rOPINIRole morphine oxyCODONE Social History Alcohol [...] Sleep apnea: Mother, Father and Grandfather (P). Diagnostic Results Diagnostic Study Interpretation: ? * Final Report * ?? XR Chest 1 View PROCEDURE INFORMATION:?? Exam: XR Chest?? Exam date and time: 10/31/2023 4:03 PM?? Age: 28 years old?? Clinical indication: Dyspnea? TECHNIQUE:?? Imaging protocol: Radiologic exam of the chest.?? Views: 1 view.? COMPARISON:?? CT CTA CHEST W AND/OR WO CONTRAST 10/13/2023 7:14 PM? FINDINGS:?? Lungs: Unremarkable. No consolidation.?? Pleural spaces: Unremarkable. No pleural effusion. No pneumothorax.?? Heart/Mediastinum: Unremarkable. No cardiomegaly.?? Bones/joints: Unremarkable.? IMPRESSION:?? No acute findings.? Report signed by: Tony Hoffmann On 10/31/2023 ??16:22:11 ? URL This document has an image ?? Result type:?XR Chest 1 View Result date:?October 31, 2023 16:03 EST Result status:?Auth (Verified) Result title:?XR Chest 1 View Performed by:?DomainUser, Generated on October 31, 2023 16:03 EST Verified by:?DomainUser, Generated on October 31, 2023 16:03 EST Encounter info:?[id number], [facility], Emergency, 10/31/2023 -?? Contributor system:?[email or web address] ?? Lab Results CBC and Differential?? LATEST RESULTS?? HISTORICAL RESULTS?? WBC?? 10/31/23 16:17?? 4.0 ??Low?? 10/16/23?? 7.5?? RBC?? 10/31/23 16:17?? 4.1?? 10/16/23?? 3.8 ??Low?? Hgb?? 10/31/23 16:17?? 12.2?? 10/16/23?? 11.3 ??Low?? Hct?? 10/31/23 16:17?? 36.2 ??Low?? 10/16/23?? 34.9 ??Low?? MCV?? 10/31/23 16:17?? 87.7?? 10/16/23?? 90.9?? MCH?? 10/31/23 16:17?? 29.5?? 10/16/23?? 29.4?? MCHC?? 10/31/23 16:17?? 33.7?? 10/16/23?? 32.4?? RDW-CV?? 10/31/23 16:17?? 14.6 ??High?? 10/16/23?? 14.4?? Platelets?? 10/31/23 16:17?? 201?? 10/16/23?? 228?? Neutro Auto?? 10/31/23 16:17?? 71.2?? 10/16/23?? 55.8?? Lymph Auto?? 10/31/23 16:17?? 16.5 ??Low?? 10/16/23?? 31.9?? [place] Auto?? 10/31/23 16:17?? 6.8?? 10/16/23?? 4.8?? Eos, Auto?? 10/31/23 16:17?? 4.5?? 10/16/23?? 5.9?? Basophil Auto?? 10/31/23 16:17?? 0.5?? 10/16/23?? 0.3?? Imm Gran Auto?? 10/31/23 16:17?? 0.5?? 10/16/23?? 1.3 ??High?? Neutro Absolute?? 10/31/23 16:17?? 2.8?? 10/16/23?? 4.2? Routine Chemistry?? LATEST RESULTS?? HISTORICAL RESULTS?? Sodium Level?? 10/31/23 16:17?? 137?? 10/16/23?? 140?? Potassium Level?? 10/31/23 16:17?? 4.1?? 10/16/23?? 4.0?? Chloride Level?? 10/31/23 16:17?? 101?? 10/16/23?? 100?? CO2?? 10/31/23 16:17?? 26?? 10/16/23?? 29?? Alk Phos?? 10/31/23 16:17?? 287 ??High?? 10/16/23?? 291 ??High?? AST?? 10/31/23 16:17?? 340 ??High?? 10/16/23?? 105 ??High?? ALT?? 10/31/23 16:17?? 308 ??High?? 10/16/23?? 235 ??High?? BUN?? 10/31/23 16:17?? 16?? 10/16/23?? 34 ??High?? Glucose Level?? 10/31/23 16:17?? 190 ??High?? 10/16/23?? 255 ??High?? Creatinine Level?? 10/31/23 16:17?? 0.89?? 10/16/23?? 1.17 ??High?? eGFR AA?? 10/31/23 16:17?? 92?? 10/16/23?? 66?? eGFR Non-AA?? 10/31/23 16:17?? 92?? 10/16/23?? 66?? Calcium Level?? 10/31/23 16:17?? 9.9?? 10/16/23?? 9.0?? Protein Total?? 10/31/23 16:17?? 7.8?? 10/16/23?? 7.6?? Albumin Level?? 10/31/23 16:17?? 3.7?? 10/16/23?? 3.0 ??Low?? Bilirubin Total?? 10/31/23 16:17?? 1.1 ??High?? 10/16/23?? 0.6?? Lactic Acid Lvl?? 10/31/23 16:17?? 2.8 ??Critical?? 10/13/23?? 1.7? Infectious Disease?? LATEST RESULTS?? HISTORICAL RESULTS?? Employed 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?? 10/31/23 16:28?? Unknown?? 10/13/23?? Unknown?? Symptomatic as defined by CDC??? 10/31/23 16:28?? Unknown?? 10/13/23?? Unknown?? Hospitalized due to COVID-19??? 10/31/23 16:28?? Unknown?? 10/13/23?? Unknown?? In ICU??? 10/31/23 16:28?? Unknown?? 10/13/23?? Unknown?? Group care resident??? 10/31/23 16:28?? Unknown?? 10/13/23?? Unknown?? status??? 10/31/23 16:28?? Unknown?? 10/13/23?? Unknown?? SARS-CoV-2(Covid19)PCR(GXpert COVFLURSV)?? 10/31/23 16:28?? Negative?? 10/13/23?? Negative?? Flu A (GXpert COVFLURSV)?? 10/31/23 16:28?? Positive Abnormal?? 10/13/23?? Negative?? Flu B (GXpert COVFLURSV)?? 10/31/23 16:28?? Negative?? 10/13/23?? Negative?? RSV (GXpert COVFLURSV)?? 10/31/23 16:28?? Negative?? 10/13/23?? Negative? Electronically Signed on 11/01/23 04:47 PM Landon Gonzales MD Progress note * Osvaldo Harrison PA-C: PERFORM Event Display: Progress Note - Physician Authored Date: [id number] MARIELOS MIRAMONTES :1995 Age:28 years Sex:Female Visit Date:10/31/2023 Primary Care Physician: Jamila Archer MD Subjective This is a 28 year old female patient who is being seen and examined for hypoxic respiratory failure, influenza, sepsis, HOLLIE CPAP dependent at night and diabetes type I. Patient presented to the ED on10/31/2023 complaining of cough for 2 days with fevers leading to shortness of breath and unable to ambulate. At the time of my exam patient still is requiring 2L of oxygen via nasal cannula. She used her CPAP during the night. She has remained afebrile since admission, she did have a temperature of39.8 upon presentation to the ED and received Tylenol. She reports still feeling quite weak with body aches and a headache. She reports when exerting herself she becomes very short of breath. She also reports she still continues to cough with no sputum production. Other than the body aches and headache she reports no pain elsewhere. Denies chest pain, nausea, vomiting, dizziness, or lightheadedness. ?? Morning labs WBC 3.0, Hgb 10.3, sodium 143, potassium 3.8, chloride 108, Glucose 109, BUN/Cr 16/0.89, Labs in the ED WBC 4.0, Hgb 12.2, electrolytes unremarkable, Alk phos 287, AST 340, ALT 308, has elevated baseline, however today is higher than baseline. Glucose 190,?? Creatinine 0.89. bilirubin total 1.1, Mg 1.88 Lactic acid was repeated last night and was 1.2 in comparison to initially in the ED at 2.8 FLu A positive, Covid negative CXR in the ED had no acute findings. lactic acid 2.8, Flu A positive, Covid negative.??Chest xray??no acute findings.?? Review of Systems Constitutional:?No??fevers,?No??chills,?No??sweats Eye:?No??recent visual problems ENT:?No??ear pain,?Positive for??nasal congestion,?No??sore throat Respiratory:?Positive for??shortness of breath,?Positive for??cough Cardiovascular:?No??Chest pain,?No??palpitations,?No??syncope Gastrointestinal:?Nonausea,?No??vomiting,?No??diarrhea Genitourinary:?No??hematuria Kamran/Lymph:?No??bruising tendency,?No??swollen lymph glands Endocrine:?No??excessive thirst,??No??excessive hunger Musculoskeletal:??No??back pain,??No??neck pain,??Positive for??joint pain,??No??muscle pain,??No??decreased range of motion Integumentary:?No??rash,?No??pruritus,?No??abrasions Neurologic: Alert & oriented X 4 Psychiatric:?No??anxiety,?No??depression Objective Vitals & Measurements T:??36.8?C ??(Temporal Artery)?? TMIN:??36.5?C ??(Temporal Artery)?? TMAX:??39.8?C ??(Temporal Artery)?? HR:??97??(Peripheral)?? RR:??20?? BP:??119/83?? SpO2:??96%?? HT:??149??cm?? WT:??136.4??kg?? BMI:??61.93?? Pain Score:??5?? O2 Flow Rate:??2?? O2 Therapy:??Nasal cannula?? BSA:??2.39?? Physical Exam General: Alert and oriented, well nourished, no acute distress. Eye: PERRL, EOMI, normal conjunctiva. HENT: Normocephalic, normal hearing, moist oral mucosa, no scleral icterus, no sinus tenderness. Neck: Supple, non-tender, no JVD, no lymphadenopathy. Lungs: Clear to auscultation and percussion, non-labored respiration. Heart: Normal rate, regular rhythm, no murmur, gallop or edema. Abdomen: Soft, non-tender, non-distended, normal bowel sounds, no masses. Musculoskeletal: Normal range of motion and strength, no tenderness or swelling. Skin: Skin is warm, dry and appropriate for ethnicity, no rashes or lesions. Neurologic: Awake, alert and oriented X4, CN II-XII??grossly intact. Psychiatric: Cooperative, appropriate mood and affect. Assessment/Plan 1.??Hypoxic respiratory failure??J96.91 Continues requiring supplemental oxygen to maintain saturation greater than 92% 2L oxygen by nasal cannula, will work on weaning patient off oxygen however will titrate up if needed also Continue with duonebs QID and albuterol PRN Continue treating fevers with Tylenol Patient c/o body aches and headache even after Tylenol, ordered 600mg Ibuprofen oral Continue with zofran for nausea and vomiting 2.??Influenza A??J10.1 Positive Flu Continue Tamiflu Continue with influenza droplet precaution 3.??Sepsis??A41.9 Appears to be improving lactic acid went from 2.8 initially in the ED to 1.2 Tachycardia has improved and HR currently 95 SpO2 maintaining at 96% on 2 L, is currently unable to tolerate being off supplemental oxygen especially with exertion Continue NS at 100 ML/hr 4.??Diabetes, type I??E10.9,??Type 1 diabetes??E10.9 Discussed diabetes medication regimen with pharmacy Will discontinue glargine Novolin 100 units in the morning 100 units??at lunch and 50 units at dinner Will hold if fingersticks blood sugars are low 6.??Morbid obesity??E66.01 7.??Obstructive sleep apnea syndrome??G47.33 Continue with home CPAP at night 8.??C. difficile colitis??A04.72 Continue oral vancomycin taper, currently at 125 mg BID 9.??HLD (hyperlipidemia)??E78.5 chronic continue holding hepatotoxic meds 10.??Transaminitis??R74.01 Chronic elevated liver enzymes Continue holding hepatotoxic meds Orders: ibuprofen, 600 mg = 1 tab, Oral, Tab, Once, First Dose: 11/01/23 9:00:00 EST, Stop Date: 11/01/23 9:00:00 EST, Physician Stop, Routine Electronically Signed on 11/01/23 09:24 AM Osvaldo Harrison PA-C * Maurisio Nogueira DO: PERFORM Event Display: Progress Note - Physician Authored Date: [id number] Patient seen and examined. ??Agree with note??of HARRISON Gruber,??above. Electronically Signed on 11/01/23 06:06 PM Maurisio Nogueira DO History and physical note * Paulina DuffyC: PERFORM, MODIFY Event Display: History and Physical Authored Date: [id number] MARIELOS MIRAMONTES :1995 Age:28 years Sex:Female Visit Date:10/31/2023 Primary Care Physician: Jamila Archer MD Chief Complaint Pt w/ cough for two days, fever this am, took tylenol., never felt better. Presents SOB, unable to ambulate, 88% on RA, placed on oxygen in triage, 94% on 2L. Pt also endorses total body aches. History of Present Illness This is a 28 year old female patient with past medical history of??type 1 diabetes, obstructive sleep apnea, hypertension, hyperlipidemia, recent C. difficile, multiple hospitalizations, recently forbilateral pneumonia. Patient uses and is compliant with CPAP at night. Labs in the ED WBC 4.0, Hgb 12.2, electrolytes unremarkable, Alk phos 287, AST 340, ALT 308, has elevated baseline, however today is higher than baseline. Glucose 190,?? Creatinine 0.89. bilirubin total 1.1, lactic acid 2.8, Flu A positive, Covid negative.??Chest xray??no acute findings.??Patient received four litres of normal saline IV in ED, acetaminophen for temperature of 39.8, patient tachycardic, sinus ~ 120-130, BP 106-110.60s.?? Patient is admitted to the medical floor for further testing and treatment.?? Patient is a full code. Review of Systems Constitutional:?No??fevers,?No??chills,?No??sweats Eye:?No??recent visual problems ENT:?No??ear pain,?No??nasal congestion,?No??sore throat Respiratory:?No??shortness of breath,?No??cough Cardiovascular:?No??Chest pain,?No??palpitations,?No??syncope Gastrointestinal:?Nonausea,?No??vomiting,?No??diarrhea Genitourinary:?No??hematuria Kamran/Lymph:?No??bruising tendency,?No??swollen lymph glands Endocrine:?No??excessive thirst,??No??excessive hunger Musculoskeletal:??No??back pain,??No??neck pain,??No??joint pain,??No??muscle pain,??No??decreased range of motion Integumentary:?No??rash,?No??pruritus,?No??abrasions Neurologic: Alert & oriented X 4 Psychiatric:?No??anxiety,?No??depression Physical Exam Vitals & Measurements T:??36.5?C ??(Temporal Artery)?? TMIN:??36.5?C ??(Temporal Artery)?? TMAX:??39.8?C ??(Temporal Artery)?? HR:??109??(Peripheral)?? HR:??109??(Monitored)?? RR:??29?? BP:??103/63?? SpO2:??97%?? HT:??149??cm?? WT:??137.5??kg??(Estimated)?? BMI:??61.93?? Pain Score:??7?? O2 Flow Rate:??2?? O2 Therapy:??Nasal cannula?? General: Alert and oriented, well nourished,?No??acute distress Eye: PERRL, EOMI,?Normal?conjunctiva HENT: Normocephalic, clear tympanic membranes,?Normal? hearing, moist oral mucosa,?No??scleral icterus,?No??sinus tenderness Neck: Supple, non-tender,?No??carotid bruits,?No??JVD,?No??lymphadenopathy Lungs:??Clear to auscultation?? Respiration:??Non-Labored Heart:?Normal? rate,?Regular??rhythm,?No??murmur,?No??gallop,?No??edema,?No??ma sses Musculoskeletal:?Normal? range of motion and strength,?No??tenderness,?No??swelling Skin: Skin is warm, dry and pink,?No??rashes,?No??lesions Neurologic: Awake, alert and oriented X4, CN II-XII intact Psychiatric: Cooperative, appropriate mood and affect Assessment/Plan 1.??Hypoxic respiratory failure??J96.91 O2 to keep SPO2 > 92% Home CPAP at night Duonebs QID Albuterol PRN Tylenol fever, headache Zofran for nausea and vomiting ? 2.??Influenza A??J10.1 Positive Flu A Start Tamiflu Precautions ?? 3.??Sepsis??A41.9 Lactic acid 2.8 - trend Tachycardia, increased resp rate, 30's, decreased SPO2 80s, O2 requirement, febrile 39.8 4 litres of normal saline given in ED, will give MIVF Acetaminophen for fever ?? 4.??Diabetes, type I??E10.9,??Type 1 diabetes??E10.9 Decrease usual insulin - last hospitalization it was 1/2'd and she continued to be hypoglycemic - start with 1/3 dose and adjust accordingly\ Finger sticks ACHS; sliding scale ?? 6.??Morbid obesity??E66.01 7.??Obstructive sleep apnea syndrome??G47.33 Use home CPAP at night 8.??C. difficile colitis??A04.72 Continue oral vancomycin taper, currently at 125 mg bid Precautions 9.??HLD (hyperlipidemia)??E78.5 Chronic Hold hepatotoxic meds 10.??Transaminitis??R74.01 Chronic elevated liver enzymes Hold hepatotoxic meds Orders: Mylanta, 15 mL, Oral, Susp, every 6 hr, PRN dyspepsia, First Dose: 10/31/23 21:50:00 EST, Routine albuterol 2.5 mg/3 mL (0.083%) inhalation solution, 2.5 mg = 3 mL, Nebulized Inhalation, Soln, QID RT, PRN wheezing, First Dose: 10/31/23 22:10:00 EST, Routine enoxaparin, 40 mg = 0.4 mL, Subcutaneous, Soln, every 24 hr, First Dose: 10/31/23 21:50:00 EST, NOW GlucaGen, 1 mg, Intramuscular, Powder-Inj, As Directed, PRN low blood sugar, First Dose: 10/31/23 21:50:00 EST, Routine GlucaGen, 1 mg, Intramuscular, Powder-Inj, As Directed, PRN low blood sugar, First Dose: 10/31/23 21:24:00 EST, Routine Dextrose 50% intravenous solution, 25 mL, IV Push, Soln, As Directed, PRN low blood sugar, First Dose: 10/31/23 21:50:00 EST, Routine glucose 40% oral gel, 30 g = 75 mL, Oral, Gel, As Directed, PRN low blood sugar, First Dose: 10/31/23 21:24:00 EST, Routine Dextrose 50% intravenous solution, 25 g 50 mL, IV Push, Soln-IV, As Directed, PRN low blood sugar, First Dose: 10/31/23 21:24:00 EST, Routine Dextrose 50% intravenous solution, 12.5 g 25 mL, IV Push, Soln-IV, As Directed, PRN low blood sugar, First Dose: 10/31/23 21:24:00 EST, Routine Dextrose 50% intravenous solution, 50 mL, IV Push, Soln, As Directed, PRN low blood sugar, First Dose: 10/31/23 21:50:00 EST, Routine glucose 40% oral gel, 15 g = 37.5 mL, Oral, Gel, As Directed, PRN low blood sugar, First Dose: 10/31/23 21:24:00 EST, Routine glucose 40% oral gel, 30 g = 75 mL, Oral, Gel, As Directed, PRN low blood sugar, First Dose: 10/31/23 21:50:00 EST, Routine glucose 40% oral gel, 15 g = 37.5 mL, Oral, Gel, As Directed, PRN low blood sugar, First Dose: 10/31/23 21:50:00 EST, Routine insulin lispro (HumaLog) correction- sensitive, Sensitive Scale, Subcutaneous, Soln, QID(ACHS), First Dose: 11/01/23 7:30:00 EST, Routine ipratropium-albuterol 0.5 mg-2.5 mg/3 mL inhalation solution, 3 mL, Inhale, Soln, QID RT for 30 days, First Dose: 11/01/23 7:00:00 EST, Stop Date: 12/01/23 6:59:00 EDT, Physician Stop, Routine lidocaine 1% injectable solution, 1 mg 0.1 mL, Intradermal, Soln, As Directed, PRN other (see comment), First Dose: 10/31/23 21:50:00 EST, Routine omeprazole, 20 mg = 1 cap, Oral, Cap-DR, Daily, First Dose: 10/31/23 6:00:00 EST, Routine ondansetron, 4 mg = 2 mL, IV Push, Soln, every 6 hr, PRN nausea/vomiting, First Dose: 10/31/23 21:50:00 EST, Routine Tamiflu, 75 mg = 1 cap, Oral, Cap, Daily, Antibiotic Indication Influenza, treatment, First Dose: 10/31/23 20:30:00 EST, Routine polyethylene glycol 3350, 17 g = 1 packets, Oral, Powder-Recon, Daily, PRN constipation, First Dose: 10/31/23 21:50:00 EST, Routine Normal Saline Flush, 10 mL, IV Push, Soln, every 12 hr (rojas), First Dose: 11/01/23 9:00:00 EST, Routine Sodium Chloride 0.9% 1,000 mL, Total Volume (mL): 1,000, 1,000 mL, Soln-IV, IV, 100 mL/hr, Start Date: 10/31/23 21:50:00 EST, 137.5 kg, Populate Charting Weight From Order, 2.39, m2 Sodium Chloride 0.9% 1,000 mL, Total Volume (mL): 1,000, 1,000 mL, Soln-IV, IV, 30 mL/hr, Start Date: 10/31/23 21:50:00 EST, 137.5 kg, Populate Charting Weight From Order, 2.39, m2 Insulin Novalin R, see order comments, Subcutaneous, Misc, As Directed, First Dose: 10/31/23 22:03:00 EST, Routine vancomycin, 125 mg = 1 cap, Oral, Cap, BID, Antibiotic Indication Clostridium diff infec (oral vanco only), First Dose: 11/01/23 9:00:00 EST, Routine vancomycin, 125 mg = 1 cap, Oral, Cap, Once, Antibiotic Indication Clostridium diff infec (oral vanco only), First Dose: 10/31/23 22:00:00 EST, Stop Date: 10/31/23 22:00:00 EST, Physician Stop, Routine vancomycin, 125 mg = 1 cap, Oral, Cap, BID, Antibiotic Indication Clostridium diff infec (oral vanco only), First Dose: 11/01/23 9:00:00 EST, Routine Basic Metabolic Panel, Blood, Routine, 10/31/23 21:50:00 EST, every morning, for 3 days, Lab Collect Blood Glucose Monitoring POC, 10/31/23 21:50:00 EST, QID(ACHS), 11/01/23 7:30:00 EST Blood Glucose Monitoring POC, 10/31/23 21:24:00 EST, QID(ACHS), 11/01/23 7:30:00 EST Cardiac Monitoring, 10/31/23 21:50:00 EST, Telemetry CBC w/o Diff, Blood, Routine, 10/31/23 21:50:00 EST, every morning, for 3 days, Lab Collect Diet Order, 10/31/23 21:50:00 EST, Diabetic Incentive Spirometry Respiratory, Routine, As Directed, Restrictive Lung Disease, 10-15 times q 1hrwhile awake Intake and Output, 10/31/23 21:50:00 EST, every 8 hrs, Constant Indicator, 10/31/23 21:50:00 EST Isolation Precautions, 10/31/23 21:50:00 EST, Droplet Magnesium Level, Blood, Routine, 10/31/23 21:50:00 EST, every morning, for 3 days, Lab Collect Misc Nursing Task, 10/31/23 22:12:00 EST, Stop date 10/31/23 22:12:00 EST Notify Provider of Vital Signs, 10/31/23 21:50:00 EST, SpO2 < 92% on 2L O2 NC, T > 101.5, HR > 100, HR < 50, SBP greater than 160, SBP less than 90, DBP greater than 90, DBP less than 50,Resp Rate greater than 30, Resp Rate less than 8, Constant Indicator Nursing Task, 10/31/23 21:50:00 EST, Constant order Nursing Task, 10/31/23 21:24:00 EST, Constant order Nursing Task, 10/31/23 21:50:00 EST, Constant order Nursing Task, 10/31/23 21:24:00 EST, Constant order Oxygen Therapy, SpO2 goal 90% or greater, PRN, Paulina Duffy-C PSO Place in Observation, Observation, Observation, Maurisio Nogueira DO, 10/31/23 21:50:00 EST, 10/31/23 21:50:00 EST, 1 midnight or less Resuscitation Status, 10/31/23 21:50:00 EST, Full Code RT Eval and Treat Protocol, 10/31/23 21:50:00 EST, Stop date 10/31/23 21:50:00 EST, Paulina Duffy-Deb Saline Lock Insert, 10/31/23 21:50:00 EST, Once, Stop date 10/31/23 21:50:00 EST Sequential Compression Devices (SCD's), 10/31/23 21:50:00 EST, Constant Order, Intermittent pneumatic compression, 10/31/23 21:50:00 EST Up ad Loren, 10/31/23 21:50:00 EST, Constant Order, 10/31/23 21:50:00 EST Vital Signs, 10/31/23 21:50:00 EST, Constant order, every 4 hrs Weight, 10/31/23 21:50:00 EST, every morning Problem List/Past Medical History Ongoing DEAN (acute kidney injury) Aortic stenosis Asthma Autoimmune thyroiditis Bilateral lower extremity edema C. difficile colitis C. difficile diarrhea Clostridioides difficile Constipation Developmental disorder Erythroderma HLD [...] of fracture (12/22/2020)???Adenoidectomy (09/10/2013)???Tonsillectomy (09/10/2003) Medications Inpatient albuterol 2.5 mg/3 mL (0.083%) inhalation solution, 2.5 mg= 3 mL, Nebulized Inhalation, QID RT, PRN Dextrose 50% intravenous solution, 25 mL, IV Push, As Directed, PRN Dextrose 50% intravenous solution, 50 mL, IV Push, As Directed, PRN Dextrose 50% intravenous solution, 12.5 g= 25 mL, IV Push, As Directed, PRN Dextrose 50% intravenous solution, 25 g= 50 mL, IV Push, As Directed, PRN enoxaparin, 40 mg= 0.4 mL, Subcutaneous, every 24 hr GlucaGen, 1 mg, Intramuscular, As Directed, PRN GlucaGen, 1 mg, Intramuscular, As Directed, PRN glucose 40% oral gel, 15 g= 37.5 mL, Oral, As Directed, PRN glucose 40% oral gel, 30 g= 75 mL, Oral, As Directed, PRN glucose 40% oral gel, 15 g= 37.5 mL, Oral, As Directed, PRN glucose 40% oral gel, 30 g= 75 mL, Oral, As Directed, PRN insulin glargine, 100 units= 1 mL, Subcutaneous, BID insulin lispro (HumaLog) correction- sensitive, Sensitive Scale, Subcutaneous, QID(ACHS) Insulin Novalin R, see order comments, Subcutaneous, As Directed ipratropium-albuterol 0.5 mg-2.5 mg/3 mL inhalation solution, 3 mL, Inhale, QID RT levothyroxine, 250 mcg= 3.33 tab, Oral, Daily lidocaine 1% injectable solution, 1 mg= 0.1 mL, Intradermal, As Directed, PRN lisinopril, 5 mg= 1 tab, Oral, Daily Mylanta, 15 mL, Oral, every 6 hr, PRN Normal Saline Flush, 10 mL, IV Push, every 12 hr (rojas) omeprazole, 20 mg= 1 cap, Oral, Daily ondansetron, 4 mg= 2 mL, IV Push, every 6 hr, PRN polyethylene glycol 3350, 17 g= 1 packets, Oral, Daily, PRN Sodium Chloride 0.9% 1,000 mL, 1000 mL, IV Sodium Chloride 0.9% 1,000 mL, 1000 mL, IV Sodium Chloride 0.9% 4,125 mL, 4125 mL, 30 mL/kg, Hydration Bolus Tamiflu, 75 mg= 1 cap, Oral, Daily torsemide, 60 mg= 3 tab, Oral, BID vancomycin, 125 mg= 1 cap, Oral, BID vancomycin, 125 mg= 1 cap, Oral, Once vancomycin, 125 mg= 1 cap, Oral, BID Home allopurinol 100 mg oral tablet, 100 mg= 1 tab, Oral, Daily atorvastatin 40 mg oral tablet, 40 mg= 1 tab, Oral, Daily azithromycin 250 mg oral tablet, 250 mg= 1 tab, Oral, Daily B-D UF III SHORT PEN NEED MIS, See instructions cefdinir 300 mg oral capsule, 300 mg= 1 cap, Oral, every 12 hr cetirizine 10 mg oral tablet, 1 tab, Oral, BID colchicine 0.6 mg oral tablet, 0.6 mg= 1 tab, Oral, BID Dexcom CGM- change q10 days, See instructions elderberry, 350 mg, Oral, Daily fluconazole 150 mg oral tablet, 300 mg= 2 tab, Oral, Once Glucagon Emergency Kit for Low Blood Sugar, See Instructions, PRN HumaLOG Mina KwikPen 100 units/mL injectable solution, 40 units, Subcutaneous, every morning HumuLIN R KwikPen (Concentrated) 500 units/mL subcutaneous solution, See Instructions levothyroxine, 250 mcg, Oral, Daily lisinopril 5 mg oral tablet, 5 mg= 1 tab, Oral, every night at bedtime Mounjaro 2.5 mg/0.5 mL subcutaneous solution, 2.5 mg, Subcutaneous, every week ONETOUCH VERIO FLEX KIT ONETOUCH VERIO MARLENE Tessalon Perles 100 mg oral capsule, 200 mg= 2 cap, Oral, TID, PRN Tessalon Perles 100 mg oral capsule, 100 mg= 1 cap, Oral, TID, PRN torsemide 20 mg oral tablet, 3 tab, Oral, BID vancomycin 125 mg oral capsule, See Instructions [employer] Probiotic, 1, Oral, Daily Allergies rOPINIRole morphine oxyCODONE Social History Alcohol [...] B pediatric vaccine 1995 Recorded Lab Results Test Name Test Result Date/Time WBC 4.0 x10^3/mcL 10/31/2023 16:17 EST RBC 4.1 x10^6/mcL 10/31/2023 16:17 EST Hgb 12.2 g/dL 10/31/2023 16:17 EST Hct 36.2 % 10/31/2023 16:17 EST MCV 87.7 fL 10/31/2023 16:17 EST MCH 29.5 pg 10/31/2023 16:17 EST MCHC 33.7 g/dL 10/31/2023 16:17 EST RDW-CV 14.6 % 10/31/2023 16:17 EST Platelets 201 x10^3/mcL 10/31/2023 16:17 EST Neutro Auto 71.2 % 10/31/2023 16:17 EST Lymph Auto 16.5 % 10/31/2023 16:17 EST [place] Auto 6.8 % 10/31/2023 16:17 EST Eos, Auto 4.5 % 10/31/2023 16:17 EST Basophil Auto 0.5 % 10/31/2023 16:17 EST Imm Gran Auto 0.5 % 10/31/2023 16:17 EST Neutro Absolute 2.8 x10^3/mcL 10/31/2023 16:17 EST Sodium Level 137 mmol/L 10/31/2023 16:17 EST Potassium Level 4.1 mmol/L 10/31/2023 16:17 EST Chloride Level 101 mmol/L 10/31/2023 16:17 EST CO2 26 mmol/L 10/31/2023 16:17 EST Alk Phos 287 unit/L 10/31/2023 16:17 EST AST 340 unit/L 10/31/2023 16:17 EST ALT 308 unit/L 10/31/2023 16:17 EST BUN 16 mg/dL 10/31/2023 16:17 EST Glucose Level 190 mg/dL 10/31/2023 16:17 EST Creatinine Level 0.89 mg/dL 10/31/2023 16:17 EST eGFR AA 92 10/31/2023 16:17 EST eGFR Non-AA 92 10/31/2023 16:17 EST Calcium Level 9.9 mg/dL 10/31/2023 16:17 EST Protein Total 7.8 g/dL 10/31/2023 16:17 EST Albumin Level 3.7 g/dL 10/31/2023 16:17 EST Bilirubin Total 1.1 mg/dL 10/31/2023 16:17 EST Lactic Acid Lvl 1.2 mmol/L 10/31/2023 21:10 EST Lactic Acid Lvl 2.8 mmol/L 10/31/2023 16:17 EST 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 Unknown 10/31/2023 16:28 EST Hospitalized due to COVID-19? Unknown 10/31/2023 16:28 EST In ICU? Unknown 10/31/2023 16:28 EST Group care resident? Unknown 10/31/2023 16:28 EST status? Unknown 10/31/2023 16:28 EST SARS-CoV-2(Covid19)PCR(GXpert COVFLURSV) NEGATIVE 10/31/2023 16:28 EST Flu A (GXpert COVFLURSV) Pos-GeneXPert 10/31/2023 16:28 EST Flu B (GXpert COVFLURSV) Neg-GeneXPert 10/31/2023 16:28 EST RSV (GXpert COVFLURSV) Neg-GeneXPert 10/31/2023 16:28 EST Diagnostic Results XR Chest 1 View PROCEDURE INFORMATION:?? Exam: XR Chest?? Exam date and time: 10/31/2023 4:03 PM?? Age: 28 years old?? Clinical indication: Dyspnea? TECHNIQUE:?? Imaging protocol: Radiologic exam of the chest.?? Views: 1 view.? COMPARISON:?? CT CTA CHEST W AND/OR WO CONTRAST 10/13/2023 7:14 PM? FINDINGS:?? Lungs: Unremarkable. No consolidation.?? Pleural spaces: Unremarkable. No pleural effusion. No pneumothorax.?? Heart/Mediastinum: Unremarkable. No cardiomegaly.?? Bones/joints: Unremarkable.? IMPRESSION:?? No acute findings.? Report signed by: Tony Hoffmann On 10/31/2023 ??16:22:11 Electronically Signed on 11/01/23 07:20 PM Nohemy Paulina ABARCA Reviewed by: Maurisio Nogueira DO Discharge summary * Maurisio Nogueira DO: MODIFY Maurisio Nogueira DO: MODIFY Event Display: Discharge Summary Authored Date: [id number] MARIELOS MIRAMONTES :1995 Age:28 years Sex:Female Visit Date:10/31/2023 Primary Care Physician: Jamila Archer MD Hospital Course This is a 28 year old female patient with past medical history significant for but not limited to type 1 diabetes, obstructive sleep apnea requiring CPAP, hypertension, recent C. difficile, multiple hospitalizations recently for bilateral pneumonia. She presented to the ED on 10/31/2023 complaining of cough for 2 days with fevers which lead to increasing shortness of breath and inability to ambulate. Patient had a fever at the time of arrival to the Emergency Department and was treated with Tylenol. She had no leukocytosis seen on labs H&H normal and electrolytes were unremarkable. She was found to have a mild transaminitis with alk phos 287, AST 340, ALT 308. Liver function labs elevated at baseline however at time of arrival in ED was higher than baseline. Lactic aid initially in the EDwas 2.8. Patient tested positive for influenza A, COVID negative. Prior?? to discharge patient was afebrile feeling much better and??morning labs revealed no WBC 4.4, H&H 11.6/35.9, electrolytes unremarkable, and lactic acid improved to 1.2, magnesium was foundto be 1.6 and was repleted prior to discharge ?? Patient was initiated on Tamiflu and will be sent with script to continue Tamiflu to completed 5 day course. During hospital course patient required oxygen therapy at all times with 4L nasal cannula on exertion and 1L at rest. She also required 2L of oxygen with her CPAP at night. Patient will be di scharged home with oxygen and also is discharged with script for a albuterol inhaler PRN. During hospital course patient blood sugars were difficult to be controlled and Novolin was used 100 units inthe morning, 100 units at lunch and 100 units at dinner, at discharge pt agrees to go back on home regimen. ??During this hospital course it was very evident that this patient is very insulin resistant and fits the Type 2 Diabetes diagnosis. This patient has morbid obesity and also with the extremeinsulin resistance shows features consistent with both Type 1 and 2 diabetes. Due to this clinical picture the patient would benefit from a GLP 1 receptor agonist such as Mounjaro.??Patient reported she will follow up with PCP in ~1 week to discuss this further and also follow up on influenza diagnosis requiring oxygen. Patient education provided and patient was told to report back to the ED withany chest pain, further increased shortness of breath despite oxygen therapy. ?? Physical Exam Vitals & Measurements T:??36.9?C ??(Temporal Artery)?? TMIN:??35.6?C ??(Temporal Artery)?? TMAX:??36.9?C ??(Temporal Artery)?? HR:??98??(Peripheral)?? RR:??18?? BP:??130/80?? SpO2:??93%?? HT:??149??cm?? Pain Score:??2?? O2 Flow Rate:??1?? O2 Therapy:??Nasal cannula?? General: Alert and oriented, well nourished,?No??acute distress Eye: PERRL, EOMI,?Normal?conjunctiva HENT: Normocephalic,?Normal? hearing, moist oral mucosa,?No??scleral icterus,?No??sinustenderness Neck: Supple, non-tender,?No??JVD,?No??lymphadenopathy Lungs:??Clear to auscultation?? Respiration:??Non-Labored Heart:?Normal? rate,?Regular??rhythm,?No??murmur,?No??gallop,?No??edema,?No??ma sses Musculoskeletal:?Normal? range of motion and strength,?No??tenderness,?No??swelling Skin: Skin is warm, dry and pink,?No??rashes,?No??lesions Neurologic: Awake, alert and oriented X4, CN II-XII grossly intact Psychiatric: Cooperative, appropriate mood and affect Procedure/Surgical History ???Due 10/2025 (10/31/2022)???ORIF - Open reduction and internal fixation of fracture (12/22/2020)???Adenoidectomy (09/10/2013)???Tonsillectomy (09/10/2003) Social History Alcohol Current, 1-2 times per month Electronic Cigarette/Vaping Electronic Cigarette Use: Never. 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 Home/Environment Lives with grandparents. Living situation: Home/Independent. Nutrition/Health Caffeine intake amount: about 150 mg/day. Substance Use Never Tobacco Never tobacco user Tobacco Use:. Lab Results Last 24 Hours?? Chemistry Event Name?? Event Result?? Date/Time?? Sodium Level 143 mmol/L 11/02/23 07:10:00 Potassium Level 3.9 mmol/L 11/02/23 07:10:00 Chloride Level 102 mmol/L 11/02/23 07:10:00 CO2 31 mmol/L 11/02/23 07:10:00 BUN 16 mg/dL 11/02/23 07:10:00 Glucose Level 121 mg/dL??High 11/02/23 07:10:00 Creatinine Level 0.69 mg/dL 11/02/23 07:10:00 eGFR AA 123 11/02/23 07:10:00 eGFR Non-AA 123 11/02/23 07:10:00 Calcium Level 9.1 mg/dL 11/02/23 07:10:00 Magnesium Level 1.6 mg/dL??Low 11/02/23 07:10:00 Glucose POC 177 mg/dL??High 11/02/23 08:07:00 ? Hematology Event Name?? Event Result?? Date/Time?? WBC 4.4 x10^3/mcL??Low 11/02/23 07:10:00 RBC 4 x10^6/mcL??Low 11/02/23 07:10:00 Hgb 11.6 g/dL??Low 11/02/23 07:10:00 Hct 35.9 %??Low 11/02/23 07:10:00 MCV 90.9 fL 11/02/23 07:10:00 MCH 29.4 pg 11/02/23 07:10:00 MCHC 32.3 g/dL 11/02/23 07:10:00 RDW-CV 15.1 %??High 11/02/23 07:10:00 Platelets 199 x10^3/mcL 11/02/23 07:10:00 ? Discharge Plan 1.??Hypoxic respiratory failure??J96.91 This is a 28 year old female patient with past medical history significant for but not limited to type 1 diabetes, obstructive sleep apnea requiring CPAP, hypertension, recent C. difficile, multiple hospitalizations recently for bilateral pneumonia. She presented to the ED on 10/31/2023 complaining of cough for 2 days with fevers which lead to increasing shortness of breath and inability to ambulate. Patient had a fever at the time of arrival to the Emergency Department and was treated with Tylenol. She had no leukocytosis seen on labs H&H normal and electrolytes were unremarkable. She was found to have a mild transaminitis with alk phos 287, AST 340, ALT 308. Liver function labs elevated at baseline however at time of arrival in ED was higher than baseline. Lactic aid initially in the EDwas 2.8. Patient tested positive for influenza A, COVID negative. Prior?? to discharge patient was afebrile feeling much better and??morning labs revealed no WBC 4.4, H&H 11.6/35.9, electrolytes unremarkable, and lactic acid improved to 1.2, magnesium was foundto be 1.6 and was repleted prior to discharge ?? Patient was initiated on Tamiflu and will be sent with script to continue Tamiflu to completed 5 day course. During hospital course patient required oxygen therapy at all times with 4L nasal cannula on exertion and 1L at rest. She also required 2L of oxygen with her CPAP at night. Patient will be di scharged home with oxygen and also is discharged with script for a albuterol inhaler PRN. During hospital course patient blood sugars were difficult to be controlled and Novolin was used 100 units inthe morning, 100 units at lunch and 100 units at dinner, at discharge pt agrees to go back on home regimen. ??During this hospital course it was very evident that this patient is very insulin resistant and fits the Type 2 Diabetes diagnosis. This patient has morbid obesity and also with the extremeinsulin resistance shows features consistent with both Type 1 and 2 diabetes. Due to this clinical picture the patient would benefit from a GLP 1 receptor agonist such as Mounjaro.??Patient reported she will follow up with PCP in ~1 week to discuss this further and also follow up on influenza diagnosis requiring oxygen. Patient education provided and patient was told to report back to the ED withany chest pain, further increased shortness of breath despite oxygen therapy. 2.??Influenza A??J10.1 3.??Sepsis??A41.9 4.??Type 2 diabetes mellitus??E11.9 During this hospital course it was very evident that this patient is very insulin resistant and fits the Type 2 Diabetes diagnosis. This patient has morbid obesity and also with the extreme insulin resistance shows features consistent with both Type 1 and 2 diabetes. Due to this clinical picture the patient would benefit from a GLP 1 receptor agonist.??Patient reported she will follow up with PCPin ~1 week to discuss this further and also follow up on influenza diagnosis requiring oxygen. Patient education provided and patient was told to report back to the ED with any chest pain, further increased shortness of breath despite oxygen therapy 5.??Diabetes, type I??E10.9,??Type 1 diabetes??E10.9 see above 7.??Morbid obesity??E66.01 8.??Obstructive sleep apnea syndrome??G47.33 9.??C. difficile colitis??A04.72 10.??HLD (hyperlipidemia)??E78.5 11.??Transaminitis??R74.01 Orders: albuterol 90 mcg/inh aerosol inhaler, 1 inh, Inhale, Aerosol, Once, First Dose: 11/02/23 10:00:00 EST, Stop Date: 11/02/23 10:00:00 EST, Physician Stop, Routine albuterol 90 mcg/inh aerosol inhaler, 1 puffs, Inhale, every 6 hr, PRN as needed for wheezing, # 8.5 g, 0 Refill(s), Pharmacy: [id number], 149, cm, 11/02/23 8:54:00 EST, Height, 137.5, kg,10/31/23 23:35:00 EST, Weight Dosing Tamiflu 75 mg oral capsule, 75 mg = 1 cap, Oral, BID, # 6 cap, 0 Refill(s), Pharmacy: [facility] [id number], 149, cm, 11/02/23 8:54:00 EST, Height, 137.5, kg, 10/31/23 23:35:00 EST, Weight Dosing Discharge Diet Instruction, Diabetic Diet Discharge Patient, 11/02/23 9:23:00 EST, Home Independently, Home Independently Oxygen Therapy, Stop date 11/02/23 9:23:00 EST, Osvaldo Harrison PA-C All Diagnoses This Visit Hypoxic respiratory failure Influenza A Sepsis Type 2 diabetes mellitus Diabetes, type I Type 1 diabetes Morbid obesity Obstructive sleep apnea syndrome C. difficile colitis HLD (hyperlipidemia) Transaminitis Patient Education Influenza, Adult Follow Up With When Contact Information Jamila Archer MD Within [address] [place] [address] [place] [address]- Additional Instructions: Medication Reconciliation New Prescription albuterol (albuterol 90 mcg/inh aerosol inhaler)1 Puffs Inhale (breathe in) every 6 hours as neededas needed for wheezing. Refills: 0. ?? oseltamivir (Tamiflu 75 mg oral capsule)1 Capsules Oral (given by mouth) 2 times a day for 3 Days. Refills: 0. ?? Changed insulin lispro (HumaLOG Mina KwikPen 100 units/mL injectable solution)40 Units Subcutaneous (under the skin) every morning. with breakfast if BG is 230 or higher. ?? lisinopril (lisinopril 5 mg oral tablet)1 tab Oral (given by mouth) every night at bedtime. ?? Unchanged allopurinol (allopurinol 100 mg oral tablet)1 tab Oral (given by mouth) every day. Refills: 0. ?? atorvastatin (atorvastatin 40 mg oral tablet)1 tab Oral (given by mouth) every day. ?? cetirizine (cetirizine 10 mg oral tablet)1 tab Oral (given by mouth) 2 times a day. Refills: 0. ?? colchicine (colchicine 0.6 mg oral tablet)1 tab Oral (given by mouth) 2 times a day. Refills: 0. ?? Durable Medical Equipment for Prescription (B-D UF III SHORT PEN NEED MIS)Use one new pen needle for each insulin injection 5 to 7 times per day as directed in case of pump malfunction. Refills: 0. ?? Durable Medical Equipment for Prescription ([employer] CGM- change q10 days)See instructions for 10 Days. ?? [id number] Milligrams Oral (given by mouth) every day. [...] in hospital and was still hypoglycemic. ?? [id number] Micrograms Oral (given by mouth) every day. ?? Other Prescription (ONETOUCH VERIO FLEX KIT)1 each by [facility]. (non drug: combo route) route 4 times daily.. ?? Other Prescription (ONETOUCH VERIO MARLENE)Test blood glucose withone new test strip 4 times daily. ?? Other Prescription ([employer] Probiotic)1 Oral (given by mouth) every day. ?? tirzepatide (Mounjaro 2.5 mg/0.5 mL subcutaneous solution)2.5 Milligrams Subcutaneous (under the skin) every week. rotate injection sites. Refills: 0. ?? torsemide (torsemide 20 mg oral tablet)3 tab Oral (given by mouth) 2 times a day. TWICE DAIY.. Refills: 3. ?? vancomycin (vancomycin 125 mg oral capsule)1 capsule 4 times daily for 10 additional days then 1 capsule 3 times daily for 5 days then 2 times daily for 5 days then 1 time daily.. Refills: 0. ?? Discontinued fluconazole (fluconazole 150 mg oral tablet)2 tab Oral (given by mouth) once. Take 1 tab now and take second dose 72 hours after. Refills: 0. Electronically Signed on 11/02/23 11:01 AM Osvaldo Harrison PA-C Electronically Signed on 11/02/23 05:47 PM Maurisio Nogueira DO * Maurisio Nogueira DO: PERFORM Event Display: Discharge Summary Authored Date: [id number] Patient seen and examined with HARRISON Gruber,??and I agree with the above??note. ?? Patient has type 1 diabetes??but severe??insulin resistance more consistent with type 2 diabetes??(but for the lack of [place]??insulin).?? Treating her insulin resistance??with??weight loss??is very important in her case. Electronically Signed on 11/02/23 05:49 PM Maurisio Nogueira DO Reviewed by: Osvaldo Harrison PA-C Patient Care team information Care Team Personnel Name: Jamila Archer MD Position: Physician Member Role: Informed Provider Address: Address: [address] [place] [address] [place], [place] [address] Name: Shila Krueger Position: Ambulatory - RN/GRIEF COUNSELLOR (Michael) Member Role: Rod Buster Care Team Related Persons Name: EMILIO PATHAK Address: Home [address] [place], [phone] Name: ELLIS GRAMAJO Address: Home [address] [place], [id number]
--- OUTSIDE RECORDS SUMMARY | 2024-02-29 19:10 | XMS_ITS | Continuity of Care Document ---
Author Name Unknown Organization [facility] Address [address] [place] [address] Care Team Providers Care Education And Training Manager Name Role Phone Jamila Archer Primary Care Physician [phone] Encounter [facility] Date(s): 02/02/24 - 02/04/24 [facility] [address] [place] [address] Encounter Diagnosis Sepsis(Discharge Diagnosis) - 02/02/24 Multifocal pneumonia(Discharge Diagnosis) - 02/02/24 Tonsillitis(Discharge Diagnosis) - 02/02/24 Steatohepatitis(Discharge Diagnosis) - 02/02/24 Hypothyroidism(Discharge Diagnosis) - 02/02/24 HTN (hypertension)(Discharge Diagnosis) - 02/02/24 Morbid obesity(Discharge Diagnosis) - 02/02/24 HOLLIE treated with BiPAP(Discharge Diagnosis) - 02/02/24 Type 1 diabetes(Discharge Diagnosis) - 02/02/24 Discharge Disposition: Home or Self Care Attending Physician: Maurisio Simmons DO Admitting Physician: Maurisio Simmons DO Allergies, Adverse Reactions, Alerts Substance Reaction Severity Status morphine Unknown Active oxyCODONE 1 Unknown Active rOPINIRole Severe Active 1repotrs feeling loopy Assessment and Plan Extracted from: Title:Discharge Note Author:Maurisio Simmons DO Date:02/04/24 Discharge Plan 1.??Sepsis??A41.9 2.??Multifocal pneumonia??J18.9 3.??Tonsillitis??J03.90 4.??Steatohepatitis??K75.81 5.??Hypothyroidism??E03.9 6.??HTN (hypertension)??I10 7.??Morbid obesity??E66.01 8.??HOLLIE treated with BiPAP??G47.33 9.??Type 1 diabetes??E10.9 Orders: azithromycin 250 mg oral tablet, 250 mg = 1 tab, Oral, Daily, # 3 tab, 0 Refill(s), Pharmacy: [id number], 149, cm, 02/02/24 14:33:00 EDT, Height, 139.3, kg, 02/02/24 8:47:00 EDT, Weight Dosing azithromycin, 250 mg = 1 tab, Oral, Tab, Once, Antibiotic Indication Pneumonia, First Dose: 02/04/24 12:27:00 EDT, Stop Date: 02/04/24 12:27:00 EDT, Physician Stop, NOW cefpodoxime 200 mg oral tablet, 200 mg = 1 tab, Oral, every 12 hr, # 8 tab, 0 Refill(s), Pharmacy: [id number], 149, cm, 02/02/24 14:33:00 EDT, Height, 139.3, kg, 02/02/24 8:47:00 EDT, Weight Dosing pneumococcal 23-polyvalent vaccine, 0.5 mL, Intramuscular, Soln, Once, PRN other (see comment), First Dose: 02/04/24 12:27:00 EDT, Physician Stop, Routine sodium chloride 0.65% nasal spray, 1 sprays, Nostril-Both, Sparkill, every 2 hr, PRN nasal congestion, First Dose: 02/03/24 16:20:00 EDT, Routine Basic Metabolic Panel, Blood, Routine, 02/11/24, Once, Lab Collect, Acute kidney injury, Order for future visit Discharge Activity Restrictions, No Restrictions Discharge Bathing Instructions, No restrictions Discharge Diet Instruction, Diabetic Diet Discharge Patient, 02/04/24 12:27:00 EDT, Home Independently, Home Independently Follow-up with Dr. Archer in 1 to 2 weeks Blood work in 1 week Follow Up With When Contact Information Jamila Archer MD Within [address] [place] [address] [place] [address]- Additional Instructions: Extracted from: Title:Progress/SOAP Note Author:Maurisio Simmons DO Date:02/03/24 1.??Sepsis??A41.9 ??24-hour temperature max??was 103 degrees. ?? Seems like she may be improving now that her??temperatures normalized??but we will see if it??rises again in the afternoon. ?? She reports feeling better. 2.??Multifocal pneumonia??J18.9 ??Continue azithromycin and cefepime. ?? No positive cultures at this time. 3.??Tonsillitis??J03.90 ??She is complaining of a sore throat and we will give her some lozenges. ?? Throat culture has been negative so far. 4.??Steatohepatitis??K75.81 ??Chronically elevated liver enzymes likely related to??fatty liver disease. 5.??Hypothyroidism??E03.9 ??Continue levothyroxine. 6.??HTN (hypertension)??I10 ??Blood pressures have been fine. 7.??Morbid obesity??E66.01 ??Severe obesity. ??She is on Mounjaro??which hopefully will help over time. 8.??HOLLIE treated with BiPAP??G47.33 ??Continue nighttime??BiPAP.?? She uses 3 L??at night with this. 9.??Type 1 diabetes??E10.9 ??Continue usual insulin regimen. ??May need more insulin as she has been ill??and her sugars this morning are quite high. Orders: Mylanta, 15 mL, Oral, Susp, every 6 hr, PRN dyspepsia, First Dose: 02/02/24 14:04:00 EDT, Routine albuterol 2.5 mg/3 mL (0.083%) inhalation solution, 2.5 mg = 3 mL, Nebulized Inhalation, Soln, every 4 hr, PRN wheezing, First Dose: 02/02/24 14:51:00 EDT, Routine allopurinol, 100 mg = 1 tab, Oral, Tab, Daily, First Dose: 02/03/24 9:00:00 EDT, Routine atorvastatin, 40 mg = 1 tab, Oral, Tab, Daily, First Dose: 02/02/24 17:00:00 EDT, Routine azithromycin, 500 mg = 1 EA, IV Piggyback, Powder-Inj, every 24 hr, Antibiotic Indication Pneumonia- CAP, Administer over: 1 hr, First Dose: 02/02/24 13:46:00 EDT, Routine, 250 mL/hr benzocaine-menthol lozenge, 1 lozenges, Mucous Membrane, Lozenge, every 2 hr for 30 days, PRN sore throat, First Dose: 02/03/24 10:10:00 EDT, Stop Date: 03/04/24 10:09:00 EDT, Physician Stop, Routine budesonide-formoterol 160 mcg-4.5 mcg/inh inhalation aerosol, Inhale, Aerosol, BID RT, First Dose: 02/02/24 19:00:00 EDT, Physician Stop, Routine, 2 inhalation(s) cefepime, 2 g = 1 EA, IV Piggyback, Powder-Inj, every 8 hr, Antibiotic Indication Pneumonia- CAP, Administer over: 0.5 hr, First Dose: 02/02/24 14:45:00 EDT, Routine, 200 mL/hr GlucaGen, 1 mg = 1 EA, Intramuscular, Kit, As Directed, PRN low blood sugar, First Dose: 02/02/24 14:48:00 EDT, Routine Dextrose 50% intravenous solution, 12.5 g 25 mL, IV Push, Soln-IV, As Directed, PRN low blood sugar, First Dose: 02/02/24 14:48:00 EDT, Routine glucose 40% oral gel, 30 g = 75 mL, Oral, Gel, As Directed, PRN low blood sugar, First Dose: 02/02/24 14:48:00 EDT, Routine glucose 40% oral gel, 15 g = 37.5 mL, Oral, Gel, As Directed, PRN low blood sugar, First Dose: 02/02/24 14:48:00 EDT, Routine Dextrose 50% intravenous solution, 25 g 50 mL, IV Push, Soln-IV, As Directed, PRN low blood sugar, First Dose: 02/02/24 14:48:00 EDT, Routine insulin lispro (HumaLog) correction- resistant, Resistant Scale, Subcutaneous, Soln, QID(ACHS), First Dose: 02/02/24 16:30:00 EDT, Routine insulin lispro, 40 units = 0.4 mL, Subcutaneous, Soln, every morning, First Dose: 02/03/24 8:00:00 EDT, Routine levothyroxine, 250 mcg = 3.33 tab, Oral, Tab, Daily, First Dose: 02/03/24 6:00:00 EDT, Routine lidocaine 1% injectable solution, 1 mg 0.1 mL, Intradermal, Soln, As Directed, PRN other (see comment), First Dose: 02/02/24 14:04:00 EDT, Routine lisinopril, 5 mg = 1 tab, Oral, Tab, Daily, First Dose: 02/02/24 21:00:00 EDT, Routine LORazepam, 0.5 mg = 1 tab, Oral, Tab, every 6 hr, PRN anxiety, First Dose: 02/02/24 14:04:00 EDT, Routine LORazepam, 0.5 mg = 1 tab, Oral, Tab, every night at bedtime, PRN sleep, First Dose: 02/02/24 14:04:00 EDT, Routine Milk of Magnesia, 30 mL, Oral, Susp, TID, PRN constipation, First Dose: 02/02/24 14:04:00 EDT, Routine Toprol-XL 25 mg oral tablet, extended release, 25 mg = 1 tab, Oral, Tab-ER, Daily, First Dose: 02/03/24 9:00:00 EDT, Routine morphine, 4 mg = 1 mL, IV Push, Soln-IV, every 2 hr, PRN pain, severe, First Dose: 02/02/24 14:04:00 EDT, Routine Narcan, 0.4 mg = 1 mL, IV Push, Soln, Once, PRN Opioid Overdose, First Dose: 02/02/24 14:04:00 EDT, Physician Stop, Routine omeprazole, 20 mg = 1 cap, Oral, Cap-DR, Daily, First Dose: 02/02/24 6:00:00 EDT, Routine ondansetron, 4 mg = 2 mL, IV Push, Soln, every 6 hr, PRN nausea/vomiting, First Dose: 02/02/24 14:04:00 EDT, Routine polyethylene glycol 3350, 17 g = 1 packets, Oral, Powder-Recon, Daily, PRN constipation, First Dose: 02/02/24 14:04:00 EDT, Routine Normal Saline Flush, 10 mL, IV Push, Soln, every 12 hr (rojas), First Dose: 02/02/24 21:00:00 EDT, Routine Sodium Chloride 0.9% 1,000 mL, Total Volume (mL): 1,000, 1,000 mL, Soln-IV, IV, 30 mL/hr, Start Date: 02/02/24 14:04:00 EDT, 139.3 kg, Populate Charting Weight From Order Humalin R, 150 units, 0.3 mL, Subcutaneous, Misc, Daily, First Dose: 02/03/24 11:30:00 EDT, Routine, Use Patient Supply Humalin R, 230 units, 0.46 mL, Subcutaneous, Misc, Daily, First Dose: 02/03/24 7:55:00 EDT, Routine, Use Patient Supply Humalin R U 500, 100 unit(s)/0.2ml, Subcutaneous, Misc, Daily, First Dose: 02/03/24 16:30:00 EDT, Routine, Use Patient Supply torsemide, 60 mg = 3 tab, Oral, Tab, BID, First Dose: 02/03/24 21:00:00 EDT, Routine torsemide, 60 mg = 3 tab, Oral, Tab, Once, First Dose: 02/03/24 11:00:00 EDT, Stop Date: 02/03/24 11:00:00 EDT, Physician Stop, Routine Ambulate, 02/02/24 14:04:00 EDT, PRN, 3 times daily Basic Metabolic Panel, Blood, Routine, 02/02/24 14:04:00 EDT, every morning, for 3 days, Lab Collect Blood Glucose Monitoring POC, 02/02/24 14:48:00 EDT, QID(ACHS), 02/02/24 16:30:00 EDT C-Reactive Protein, Blood, Routine, 02/02/24 14:04:00 EDT, every morning, for 3 days, Lab Collect Cardiac Monitoring, 02/02/24 14:04:00 EDT, Telemetry CBC w/o Diff, Blood, Routine, 02/02/24 14:04:00 EDT, every morning, for 3 days, Lab Collect Diet Order, 02/02/24 14:04:00 EDT, Diabetic Glucose Level, Blood, Routine, 02/03/24 10:00:00 EDT, Once, Lab Collect Hemoglobin A1c, Blood, Add On, 02/03/24 10:11:00 EDT, Once, Lab Collect Intake and Output, 02/02/24 14:04:00 EDT, every 8 hrs, Constant Indicator, 02/02/24 14:04:00 EDT Magnesium Level, Blood, Routine, 02/02/24 14:04:00 EDT, every morning, for 3 days, Lab Collect Notify Provider of Vital Signs, 02/02/24 14:04:00 EDT, SpO2 < 92% on 2L O2 NC, T > 101.5, HR > 100, HR < 50, SBP greater than 160, SBP less than 90, DBP greater than 90, DBP less than 50, Resp Rate greater than 30, Resp Rate less than 8, Constant Indicator Nursing Task, 02/02/24 14:48:00 EDT, Constant order Nursing Task, 02/02/24 14:48:00 EDT, Constant order PSO Admit to Inpatient, Semi-Private, Inpatient, Maurisio Simmons DO, 02/02/24 13:36:00 EDT, 02/02/24 13:36:00 EDT, 02/02/24 13:36:00 EDT, 2 midnights or more but less than 96 hrs Resuscitation Status, 02/02/24 14:04:00 EDT, Full Code Throat Culture, Throat, Throat, Routine collect, RT - Routine, 02/02/24 14:37:00 EDT, Once, Nurse collect Up to Chair, 02/02/24 14:04:00 EDT, TID w/ Meals Vital Signs, 02/02/24 14:04:00 EDT, Constant order, every 4 hrs Weight, 02/02/24 14:04:00 EDT, every morning Disposition:??Expect 1-2 more days of acute hospitalization before we can get her home to complete??her treatment with an oral regimen of antibiotics. Extracted from: Title:ED Provider Note Author:Deyvi Rodriguez MD Date:02/02/24 1.??Sepsis??A41.9 2.??Multifocal pneumonia??J18.9 3.??Tonsillitis??J03.90 4.??Steatohepatitis??K75.81 5.??Hypothyroidism??E03.9 6.??HTN (hypertension)??I10 7.??Morbid obesity??E66.01 8.??HOLLIE treated with BiPAP??G47.33 9.??Type 1 diabetes??E10.9 Orders: Blood Culture, Blood, Stat collect, ST - Stat, 02/02/24 8:45:00 EDT, Once, Nurse collect, Print Label Blood Culture, Blood, Stat collect, ST - Stat, 02/02/24 8:45:00 EDT, Once, Nurse collect, Print Label Communication Order, 02/02/24 8:45:00 EDT Extracted from: Title:H & P Author:Maurisio Simmons DO Date:02/02/24 1.??Sepsis??A41.9 ??Remarkably elevated??temperature??to 41.1 ??C??suggest??substantial??immune response to what looks like a multifocal pneumonia on??CT scan. ?? Was treated with vancomycin??and??Zosyn in the emergency room but will continue treatment for??community-acquired pneumonia with??ceftriaxone and azithromycin. ?? Will follow her inflammatory markers. ?? Will give her IV fluids for a day given her??high fever??and monitor??this for resolution. ?? She is not coughing and so we cannot get a sputum culture but blood cultures are pending. ? 2.??Multifocal pneumonia??J18.9 Cefepime and azithromycin. ?? Will follow blood work??and change course if necessary. ?? 3.??Tonsillitis??J03.90 ??Will check a throat??culture??but should be covered by current antibiotic regimen. 4.??Steatohepatitis??K75.81 ??Liver enzymes have been persistently elevated. ?? CT scan is suggestive of steatosis. ?? 5.??Hypothyroidism??E03.9 ??Continue her??thyroid hormone levels.?? TSH was checked and in the normal range. 6.??HTN (hypertension)??I10 ??Blood pressures have varied??from low to high??but currently??sufficient. 7.??Morbid obesity??E66.01 ??Likely has some??obesity hypoventilation. 8.??HOLLIE treated with BiPAP??G47.33 ??Uses 3 L/min oxygen supplementation??with her BiPAP every night.?? Will continue that therapy here. 9.??Type 1 diabetes??E10.9 ??Takes Humulin R??230 units with breakfast, 150 units with lunch, and 100 units with dinner.?? She also uses lispro 40 units??in the morning if her sugars are excessively high. ?? Will reduce her Humulin to 100 units with meals initially as she has had low sugars in the past??while hospitalized. ?? Orders: acetaminophen, 650 mg = 2 tab, Oral, Tab, every 6 hr, PRN pain, mild, First Dose: 02/02/24 14:04:00 EDT, Routine Tylenol, 1,000 mg = 100 mL, IV Piggyback, Soln-IV, every 6 hr (rojas) for 3 days, PRN fever, Administer over: 15 minutes, First Dose: 02/02/24 14:28:00 EDT, Stop Date: 02/05/24 14:27:00 EDT, Physician Stop, Routine Mylanta, 15 mL, Oral, Susp, every 6 hr, PRN dyspepsia, First Dose: 02/02/24 14:04:00 EDT, Routine allopurinol, 100 mg = 1 tab, Oral, Tab, Daily, First Dose: 02/03/24 9:00:00 EDT, Routine atorvastatin, 40 mg = 1 tab, Oral, Tab, Daily, First Dose: 02/02/24 17:00:00 EDT, Routine azithromycin, 500 mg = 1 EA, IV Piggyback, Powder-Inj, every 24 hr, Antibiotic Indication Pneumonia- CAP, Administer over: 1 hr, First Dose: 02/02/24 13:46:00 EDT, Routine, 250 mL/hr budesonide-formoterol 160 mcg-4.5 mcg/inh inhalation aerosol, Inhale, Aerosol, BID, First Dose: 02/02/24 21:00:00 EDT, Physician Stop, Routine, 2 inhalation(s) cefepime, 2 g = 1 EA, IV Piggyback, Powder-Inj, every 8 hr, Antibiotic Indication Pneumonia- CAP, First Dose: 02/02/24 14:45:00 EDT, Routine, 200 mL/hr GlucaGen, 1 mg, Intramuscular, Powder-Inj, As Directed, PRN low blood sugar, First Dose: 02/02/24 14:48:00 EDT, Routine Dextrose 50% intravenous solution, 25 mL, IV Push, Soln, As Directed, PRN low blood sugar, First Dose: 02/02/24 14:48:00 EDT, Routine glucose 40% oral gel, 30 g = 75 mL, Oral, Gel, As Directed, PRN low blood sugar, First Dose: 02/02/24 14:48:00 EDT, Routine glucose 40% oral gel, 15 g = 37.5 mL, Oral, Gel, As Directed, PRN low blood sugar, First Dose: 02/02/24 14:48:00 EDT, Routine Dextrose 50% intravenous solution, 50 mL, IV Push, Soln, As Directed, PRN low blood sugar, First Dose: 02/02/24 14:48:00 EDT, Routine insulin lispro (HumaLog) correction- resistant, Resistant Scale, Subcutaneous, Soln, QID(ACHS), First Dose: 02/02/24 16:30:00 EDT, Routine insulin lispro, 40 units = 0.4 mL, Subcutaneous, Soln, every morning, First Dose: 02/03/24 8:00:00 EDT, Routine HumuLIN R, 100 units = 1 mL, Subcutaneous, Soln, AC, First Dose: 02/02/24 16:30:00 EDT, Routine levothyroxine, 250 mcg = 3.33 tab, Oral, Tab, Daily, First Dose: 02/03/24 6:00:00 EDT, Routine lidocaine 1% injectable solution, 1 mg 0.1 mL, Intradermal, Soln, As Directed, PRN other (see comment), First Dose: 02/02/24 14:04:00 EDT, Routine lisinopril, 5 mg = 1 tab, Oral, Tab, Daily, First Dose: 02/03/24 9:00:00 EDT, Routine LORazepam, 0.5 mg = 1 tab, Oral, Tab, every 6 hr, PRN anxiety, First Dose: 02/02/24 14:04:00 EDT, Routine LORazepam, 0.5 mg = 1 tab, Oral, Tab, every night at bedtime, PRN sleep, First Dose: 02/02/24 14:04:00 EDT, Routine Milk of Magnesia, 30 mL, Oral, Susp, TID, PRN constipation, First Dose: 02/02/24 14:04:00 EDT, Routine Toprol-XL 25 mg oral tablet, extended release, 25 mg = 1 tab, Oral, Tab-ER, Daily, First Dose: 02/03/24 9:00:00 EDT, Routine morphine, 4 mg = 1 mL, IV Push, Soln-IV, every 2 hr, PRN pain, severe, First Dose: 02/02/24 14:04:00 EDT, Routine Narcan, 0.4 mg = 1 mL, IV Push, Soln, Once, PRN Opioid Overdose, First Dose: 02/02/24 14:04:00 EDT, Physician Stop, Routine omeprazole, 20 mg = 1 cap, Oral, Cap-DR, Daily, First Dose: 02/02/24 6:00:00 EDT, Routine ondansetron, 4 mg = 2 mL, IV Push, Soln, every 6 hr, PRN nausea/vomiting, First Dose: 02/02/24 14:04:00 EDT, Routine polyethylene glycol 3350, 17 g = 1 packets, Oral, Powder-Recon, Daily, PRN constipation, First Dose: 02/02/24 14:04:00 EDT, Routine Normal Saline Flush, 10 mL, IV Push, Soln, every 12 hr (rojas), First Dose: 02/02/24 21:00:00 EDT, Routine Sodium Chloride 0.9% 1,000 mL, Total Volume (mL): 1,000, 1,000 mL, Soln-IV, IV, 100 mL/hr, Order Duration: 24 hr, Start Date: 02/02/24 14:04:00 EDT, Stop Date: 02/03/24 14:03:00 EDT, 139.3 kg, Populate Charting Weight From Order Sodium Chloride 0.9% 1,000 mL, Total Volume (mL): 1,000, 1,000 mL, Soln-IV, IV, 30 mL/hr, Start Date: 02/02/24 14:04:00 EDT, 139.3 kg, Populate Charting Weight From Order torsemide, 60 mg = 3 tab, Oral, Tab, BID, First Dose: 02/02/24 14:00:00 EDT, Routine Ambulate, 02/02/24 14:04:00 EDT, PRN, 3 times daily Basic Metabolic Panel, Blood, Routine, 02/02/24 14:04:00 EDT, every morning, for 3 days, Lab Collect Blood Glucose Monitoring POC, 02/02/24 14:48:00 EDT, QID(ACHS), 02/02/24 16:30:00 EDT C-Reactive Protein, Blood, Routine, 02/02/24 14:04:00 EDT, every morning, for 3 days, Lab Collect Cardiac Monitoring, 02/02/24 14:04:00 EDT, Telemetry CBC w/o Diff, Blood, Routine, 02/02/24 14:04:00 EDT, every morning, for 3 days, Lab Collect Diet Order, 02/02/24 14:04:00 EDT, Diabetic Intake and Output, 02/02/24 14:04:00 EDT, every 8 hrs, Constant Indicator, 02/02/24 14:04:00 EDT Magnesium Level, Blood, Routine, 02/02/24 14:04:00 EDT, every morning, for 3 days, Lab Collect Notify Provider of Vital Signs, 02/02/24 14:04:00 EDT, SpO2 < 92% on 2L O2 NC, T > 101.5, HR > 100, HR < 50, SBP greater than 160, SBP less than 90, DBP greater than 90, DBP less than 50, Resp Rate greater than 30, Resp Rate less than 8, Constant Indicator Nursing Task, 02/02/24 14:48:00 EDT, Constant order Nursing Task, 02/02/24 14:48:00 EDT, Constant order PSO Admit to Inpatient, Semi-Private, Inpatient, Maruisio Simmons , 02/02/24 13:36:00 EDT, 02/02/24 13:36:00 EDT, 02/02/24 13:36:00 EDT, 2 midnights or more but less than 96 hrs Resuscitation Status, 02/02/24 14:04:00 EDT, Full Code RT Eval and Treat Protocol, 02/02/24 14:04:00 EDT, Stop date 02/02/24 14:04:00 EDT, Rosy Venegas Throat Culture, Throat, Throat, Routine collect, RT - Routine, 02/02/24 14:37:00 EDT, Once, Nurse collect Up to Chair, 02/02/24 14:04:00 EDT, TID w/ Meals Vital Signs, 02/02/24 14:04:00 EDT, Constant order, every 4 hrs Weight, 02/02/24 14:04:00 EDT, every morning Disposition:??Expect??1 to 2 days of acute hospitalization??as she recovers from her pneumonia??which has come on quite suddenly.?? Hopefully she recovers as quickly and can??complete her??therapy at home with oral medications. Future Appointments Appointment Date:02/05/2024 04:30:00 PM Scheduled Provider:Shila Krueger Location:[facility] [place] Appointment Type:Care Coordination Follow-Up 60 ([facility]) Future Scheduled Tests Laboratory* Basic Metabolic Panel 02/11/24 * Basic Metabolic Panel 05/29/23 * CBC w/ Diff 05/01/23 * Comprehensive Metabolic Panel 08/16/23 * Uric Acid 08/16/23 Radiology* XR Chest 2 Views 10/31/23 * XR Spine Lumbosacral 4+ Views 02/27/23 Functional Status 02/04/24 ADLs Independent Activity Status ADL Up to chair Personal Care Provided Linen change, Shower, Underpad change 02/03/24 Assistive Device None Positioning/Pressure Reducing Devices Pi llow 02/03/24 Lunch Percent 100 02/03/24 Breakfast Percent 100 02/02/24 Dinner Percent 100 02/02/24 Family Member Travel History No recent t [...] wheezing, # 8.5 g, 3 Refill(s), Pharmacy: [id number], 149, cm, 12/10/23 11:24:00 EDT, Height, 136.08, kg, 12/10/23 11:26:00 EDT, Weight Dosing Start Date: 12/24/23 Status: Ordered allopurinol 100 mg oral tablet 100 mg = 1 tab, Oral, Daily, # 90 tab, 0 Refill(s), Pharmacy: [id number], 149, cm, 12/10/23 11:24:00 EDT, Height, 136.08, kg, 12/10/23 11:26:00 EDT, Weight Dosing Start Date: 12/24/23 Status: Ordered aspirin 81 mg oral capsule 81 mg = 1 cap, Oral, every 24 hr, # 90 cap, 4 Refill(s), Pharmacy: [facility], 149.86, cm, 11/27/23 8:07:00 EDT, Height, 136.08, kg, 11/27/23 8:15:00 EDT, Weight Dosing Start Date: 11/27/23 Status: Ordered atorvastatin 40 mg oral tablet 40 mg = 1 tab, Oral, Daily, # 90 tab, 3 Refill(s), Pharmacy: [id number], 149, cm, 12/10/23 11:24:00 EDT, Height, 136.08, kg, 12/10/23 11:26:00 EDT, Weight Dosing Start Date: 12/24/23 Status: Ordered azithromycin 250 mg oral tablet 250 mg = 1 tab, Oral, Daily, # 3 tab, 0 Refill(s), Pharmacy: [id number], 149, cm, 02/02/24 14:33:00 [...] 500 EA, 0 Refill(s), Pharmacy: [facility] 415 Start Date: 12/24/23 Status: Ordered cefpodoxime 200 mg oral tablet 200 mg = 1 tab, Oral, every 12 hr, # 8 tab, 0 Refill(s), Pharmacy: [facility] 4156, 149, cm, 02/02/24 14:33:00 EDT, Height, 139.3, kg, 02/02/24 8:47:00 EDT, Weight Dosing Start Date: 02/04/24 Stop Date: 02/08/24 Status: Ordered cetirizine 10 mg oral tablet 1 tab, Oral, BID, # 60 tab, 0 Refill(s), Pharmacy: [facility] 415, 149, cm, 12/10/23 11:24:00 EDT, Height, 136.08, [...] higher, # 15 mL, 2 Refill(s), Pharmacy: [id number], 149, cm, 12/10/23 11:24:00 [...] Daily, # 90 tab, 0 Refill(s), Pharmacy: [id number], 149, cm, 12/10/23 11:24:00 EDT, Height, 136.08, kg, 12/10/23 11:26:00 EDT, Weight Dosing Start Date: 01/28/24 Status: Ordered meclizine 25 mg oral tablet 25 mg = 1 tab, Oral, TID, PRN as needed for dizziness, # 30 tab, 0 Refill(s), Pharmacy: [id number], 149, cm, 12/10/23 11:24:00 EDT, Height, 136.08, kg, 12/10/23 11:26:00 EDT, Weight Dosing Start Date: 12/18/23 Status: Ordered Mounjaro 2.5 mg/0.5 mL subcutaneous solution 2.5 mg =, Subcutaneous, every week, rotate injection sites, # 4 EA, 0 Refill(s), Pharmacy: [id number], 149, cm, 12/10/23 11:24:00 EDT, Height, 136.08, kg, 12/10/23 11:26:00 EDT, Weight Dosing Start Date: 12/24/23 Status: Ordered [place] 0.65% nasal spray 1 sprays, Nostril-Both, QID, PRN as needed for dry nasal passages, in each nostril, # 44 mL, 0 Refill(s) Start Date: 02/02/24 Status: Ordered ONETOUCH VERIO FLEX KIT ONETOUCH VERIO FLEX KIT, 1 each by [facility]. (non drug: combo route) route 4 times [...] Daily, # 90 tab, 4 Refill(s), Pharmacy: [id number], 149.86, cm, 11/27/23 8:07:00 EDT, Height, 136.08, kg, 11/27/23 8:15:00 EDT, Weight Dosing Start Date: 11/27/23 Status: Ordered Toprol-XL 25 mg oral tablet, extended release 25 mg = 1 tab, Oral, Tab-ER, First Dose: 02/04/24 8:00:00 AM CDT Start Date: 02/04/24 Stop Date: 02/04/24 Status: Completed torsemide 20 mg oral tablet 3 tab, Oral, BID, TWICE DAIY., # 180 tab, 3 Refill(s), Pharmacy: [id number], 149, cm, 07/08/23 18:54:00 EDT, Height/Length Dosing, 133.2, kg, 07/25/23 10:54:00 EST, Weight Dosing Start Date: 08/06/23 Status: Ordered Mental Status 02/03/24 Eye Opening Response [place] Spontaneous ly Best Verbal Response [place] Oriented Best Motor Response [place] Obeys comman ds [place] Coma Score 15 Problem List Condition Confirmation [...] Results Laboratory List Name Date Glucose POCT 02/04/24 Glucose POCT 02/04/24 Basic Metabolic Panel 02/04/24 C-Reactive Protein (CRP) 02/04/24 CBC w/o Diff 02/04/24 Magnesium Level 02/04/24 Glucose POCT 02/04/24 Glucose Level 02/03/24 Basic Metabolic Panel 02/03/24 C-Reactive Protein (CRP) 02/03/24 CBC w/o Diff 02/03/24 Hemoglobin A1c 02/03/24 Magnesium Level 02/03/24 Strep A (ID NOW) 02/02/24 Urinalysis with Micro if Indicated and C ulture if Indicated 02/02/24 Blood Gas Venous 02/02/24 C-Reactive Protein (CRP) 02/02/24 CBC w/ Diff 02/02/24 Comprehensive Metabolic Panel (CMP) 02/01 Lactic Acid 02/02/24 Procalcitonin 02/02/24 Sedimentation Rate (ESR) 02/02/24 .Manual Differential (NCTY) 02/02/24 Beta hCG Quantitative 02/02/24 SARS-CoV-2 (COVID-19)/Flu/RSV ([facility] ) (COVID-19/Flu/RSV ([facility])) 02/02/24 TSH w/ Rflx to Free T4 02/02/24 Most recent to oldest [Reference Range]: 1 2 3 WBC [5.0-10.0 x10^3/mcL] 10.7 x10^3/mcL *HI* (02/04/24 6:50 AM) 9.1 x10^3/mcL (02/03/24 7:10 AM) 10.3 x10^3/mcL *HI* (02/02/24 8:55 AM) RBC [4.1-5.3 x10^6/mcL] 3.5 x10^6/mcL *LOW* (02/04/24 6:50 AM) 3.5 x10^6/mcL *LOW* (02/03/24 7:10 AM) 4.4 x10^6/mcL (02/02/24 8:55 AM) Segs Man [40-75 %] 86 % *HI* (02/02/24 8:55 AM) Lymph Man [20-50 %] 8 % *LOW* (02/02/24 8:55 AM) Archuleta Man [2-15 %] 0 % *LOW* (02/02/24 8:55 AM) Eos Man [1-6 %] 3 % (02/02/24 8:55 AM) BUN [7-18 mg/dL] 36 mg/dL *HI* (02/04/24 6:50 AM) 33 mg/dL *HI* (02/03/24 7:10 AM) 28 mg/dL *HI* (02/02/24 8:55 AM) Glucose POC [74-106 mg/dL] 140 mg/dL *HI* (02/04/24 11:08 AM) 196 mg/dL *HI* (02/04/24 7:18 AM) 69 mg/dL *LOW* (02/04/24 12:22 AM) UA Color Yellow (02/02/24 10:53 AM) Glucose Level [74-106 mg/dL] 179 mg/dL *HI* (02/04/24 6:50 AM) 648 mg/dL 1 *CRIT* (02/03/24 10:17 AM) 547 mg/dL 2 *CRIT* (02/03/24 7:10 AM) Lymph, Atyp Man 1 % *NA* (02/02/24 8:55 AM) Potassium Level [3.5-5.1 mmol/L] 4.0 mmol/L (02/04/24 6:50 AM) 4.8 mmol/L (02/03/24 7:10 AM) 4.0 mmol/L (02/02/24 8:55 AM) MCV [80.0-96.0 fL] 91.1 fL (02/04/24 6:50 AM) 92.6 fL (02/03/24 7:10 AM) 90.0 fL (02/02/24 8:55 AM) UA Urobilinogen Normal (02/02/24 10:53 AM) RBC Morph Normal (02/02/24 8:55 AM) UA Bili [Negative] Negative (02/02/24 10:53 AM) CO2 Total Venous 33 mmol/L *NA* (02/02/24 8:55 AM) CRP [<=10.0 mg/L] 110.6 mg/L *HI* (02/04/24 6:50 AM) 136.7 mg/L *HI* (02/03/24 7:10 AM) 36.8 mg/L *HI* (02/02/24 8:55 AM) UA Ketones Negative (02/02/24 10:53 AM) HCO3 Venous [22-30 mmol/L] 31 mmol/L *HI* (02/02/24 8:55 AM) AST [15-37 unit/L] 153 unit/L *HI* (02/02/24 8:55 AM) ALT [14-59 unit/L] 190 unit/L *HI* (02/02/24 8:55 AM) MCHC [31.0-35.0 g/dL] 32.1 g/dL (02/04/24 6:50 AM) 31.8 g/dL (02/03/24 7:10 AM) 32.5 g/dL (02/02/24 8:55 AM) Sodium Level [136-145 mmol/L] 138 mmol/L (02/04/24 6:50 AM) 136 mmol/L (02/03/24 7:10 AM) 139 mmol/L (02/02/24 8:55 AM) UA Leuk Est Negative (02/02/24 10:53 AM) UA Nitrite Negative (02/02/24 10:53 AM) UA Glucose [Negative] Negative (02/02/24 10:53 AM) Hct [37.0-47.0 %] 31.8 % *LOW* (02/04/24 6:50 AM) 32.4 % *LOW* (02/03/24 7:10 AM) 39.7 % (02/02/24 8:55 AM) Calcium Level [8.5-10.1 mg/dL] 8.8 mg/dL (02/04/24 6:50 AM) 8.3 mg/dL *LOW* (02/03/24 7:10 AM) 9.8 mg/dL (02/02/24 8:55 AM) Albumin Level [3.4-5.0 g/dL] 4.0 g/dL (02/02/24 8:55 AM) Protein Total [6.4-8.2 g/dL] 8.5 g/dL *HI* (02/02/24 8:55 AM) UA Protein Negative (02/02/24 10:53 AM) MCH [26.0-32.0 pg] 29.2 pg (02/04/24 6:50 AM) 29.4 pg (02/03/24 7:10 AM) 29.3 pg (02/02/24 8:55 AM) Magnesium Level [1.8-2.4 mg/dL] 2.1 mg/dL (02/04/24 6:50 AM) 2.2 mg/dL (02/03/24 7:10 AM) Bilirubin Total [0.2-1.0 mg/dL] 0.7 mg/dL (02/02/24 8:55 AM) Hgb [12.0-16.0 g/dL] 10.2 g/dL *LOW* (02/04/24 6:50 AM) 10.3 g/dL *LOW* (02/03/24 7:10 AM) 12.9 g/dL (02/02/24 8:55 AM) Alk Phos [46-146 unit/L] 307 unit/L *HI* (02/02/24 8:55 AM) UA Blood Negative *NA* (02/02/24 10:53 AM) pCO2 Mirza [33-47 mmHg] 51 mmHg *HI* (02/02/24 8:55 AM) Band Man [0-5 %] 2 % (02/02/24 8:55 AM) UA Spec Grav <=1.005 *NA* (02/02/24 10:53 AM) Platelets [130-450 x10^3/mcL] 227 x10^3/mcL (02/04/24 6:50 AM) 214 x10^3/mcL (02/03/24 7:10 AM) 258 x10^3/mcL (02/02/24 8:55 AM) CO2 [21-32 mmol/L] 24 mmol/L (02/04/24 6:50 AM) 24 mmol/L (02/03/24 7:10 AM) 29 mmol/L (02/02/24 8:55 AM) Lactic Acid Lvl [0.7-2.0 mmol/L] 1.5 mmol/L (02/02/24 8:55 AM) TSH [0.358-3.740 mcIntlUnit/mL] 1.847 mcIntlUnit/mL (02/02/24 8:55 AM) pO2 Mirza 16 mmHg *NA* (02/02/24 8:55 AM) UA pH 6.5 *NA* (02/02/24 10:53 AM) pH Mirza [7.32-7.43 pH unit(s)] 7.40 pH unit(s) (02/02/24 8:55 AM) O2 Sat Mirza 22 % *NA* (02/02/24 8:55 AM) eGFR Non-AA [>=60] 66 (02/04/24 6:50 AM) 65 (02/03/24 7:10 AM) 79 (02/02/24 8:55 AM) eGFR AA [>=60] 66 (02/04/24 6:50 AM) 65 (02/03/24 7:10 AM) 79 (02/02/24 8:55 AM) Base Excess Venous 5.3 mmol/L *NA* (02/02/24 8:55 AM) UA Appear Clear (02/02/24 10:53 AM) Hemoglobin A1c [4.0-5.6 %] 8.0 % 3 *HI* (02/03/24 7:10 AM) Chloride Level [98-107 mmol/L] 101 mmol/L (02/04/24 6:50 AM) 102 mmol/L (02/03/24 7:10 AM) 99 mmol/L (02/02/24 8:55 AM) Procalcitonin [0.00-0.50 ng/mL] 0.56 ng/mL *HI* (02/02/24 8:55 AM) RDW-CV [11.5-14.5 %] 16.4 % *HI* (02/04/24 6:50 AM) 16.7 % *HI* (02/03/24 7:10 AM) 15.2 % *HI* (02/02/24 8:55 AM) Slide Review Man Diff (02/02/24 8:55 AM) Abs Neut Man 9.1 x10^3/mcL *NA* (02/02/24 8:55 AM) Strep A -IDNOW [Not Detected] Not Detected (02/02/24 11:06 AM) Creatinine Level [0.55-1.02 mg/dL] 1.17 mg/dL *HI* (02/04/24 6:50 AM) 1.18 mg/dL *HI* (02/03/24 7:10 AM) 1.00 mg/dL (02/02/24 8:55 AM) Employed 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 Unknown *NA* (02/02/24 8:55 AM) Symptomatic as defined by CDC? Unknown *NA* (02/02/24 8:55 AM) Hospitalized due to COVID-19? Unknown *NA* (02/02/24 8:55 AM) In ICU? Unknown *NA* (02/02/24 8:55 AM) Group care resident? Unknown *NA* (02/02/24 8:55 AM) status? Unknown *NA* (02/02/24 8:55 AM) SARS-CoV-2(Covid19)PCR(GXper t COVFLURSV) [Negative] Negative (02/02/24 8:55 AM) Flu A ([facility]pert COVFLURSV) [Negative] Negative (02/02/24 8:55 AM) RSV ([facility]pert COVFLURSV) [Negative] Negative (02/02/24 8:55 AM) Flu B ([facility]pert COVFLURSV) [Negative] Negative (02/02/24 8:55 AM) Baso Man [0-1 %] 0 % (02/02/24 8:55 AM) Beta hCG Qnt [1-6 mIntlUnit/mL] <1 mIntlUnit/mL *LOW* (02/02/24 8:55 AM) ESR, Westergren [0-30 mm/hr] 50 mm/hr *HI* (02/02/24 8:55 AM) 1Result Comment: Called to and verbally verified by 258 - M/S - Cheri Rasheed RN at 02/03/2024 10:48:29 EDT. Repeated to confirm. 2Result Comment: Called to and verbally verified by 258 - M/S Jayson Venegas RN at 02/03/2024 08:36:02 EDT. Repeated to confirm. 3Interpretive Data: New test method effective 10-09-23. Establishment of new HA1c baseline is recommended. The following A1c interpretive data reflect the 2017 [place] [employer] (ADA) guidelinesand will be reported with each A1c result: Normal: <5.7% Prediabetes: 5.7 - 6.4% Diagnostic for diabetes (if confirmed): ???6.5% Orders for Microbiology Reports Name Date Throat Culture 02/02/24 Blood Culture 02/02/24 Blood Culture 02/02/24 Microbiology Reports TEST:Throat Culture STATUS:Auth (Verified) BODY SITE:Throat SOURCE:Throat COLLECTED DATE/TIME:02/02/24 3:41 PM FINAL REPORT Normal [place] at 48 hours TEST:Blood Culture STATUS:Order in Progress BODY SITE: SOURCE:Blood COLLECTED DATE/TIME:02/02/24 9:15 AM PRELIMINARY REPORT No growth at 24 hours. TEST:Blood Culture STATUS:Order in Progress BODY SITE: SOURCE:Blood COLLECTED DATE/TIME:02/02/24 8:59 AM PRELIMINARY REPORT No growth at 24 hours. Vital Signs Most recent to oldest [Reference Range]: 1 2 3 Temperature Tympanic [36.6-38.1 Deg C] 38.6 Deg C *HI* (02/03/24 12:25 AM) 39.1 Deg C *HI* (02/02/24 11:18 PM) 39.4 Deg C *HI* (02/02/24 10:11 PM) Temperature Temporal Artery [36-38 Deg C] 37.2 Deg C (02/04/24 11:26 AM) 36.6 Deg C (02/04/24 9:38 AM) 36.6 Deg C (02/04/24 7:23 AM) Temperature Temporal Artery (DegF) [97.3-100 Deg F] 97.88 Deg F (02/04/24 9:38 AM) 97.88 Deg F (02/04/24 7:23 AM) 97.7 Deg F (02/04/24 12:26 AM) Peripheral Pulse Rate [60-100 bpm] 103 bpm *HI* (02/04/24 11:26 AM) 95 bpm (02/04/24 7:23 AM) 94 bpm (02/04/24 7:06 AM) Heart Rate Monitored [60-100 bpm] 103 bpm *HI* (02/04/24 9:30 AM) 93 bpm (02/04/24 7:06 AM) 85 bpm (02/04/24 3:42 AM) Respiratory Rate [12-24 br/min] 24 br/min (02/04/24 11:26 AM) 20 br/min (02/04/24 7:23 AM) 20 br/min (02/04/24 7:06 AM) Blood Pressure [90-140/60-90 mmHg] 130/62mmHg (02/04/24 11:26 AM) 92/64mmHg (02/04/24 9:30 AM) 118/53mmHg (02/04/24 7:23 AM) Mean Arterial Pressure, Cuff [65-140 mmHg] 75 mmHg (02/04/24 4:32 AM) 74 mmHg (02/04/24 12:26 AM) 76 mmHg (02/03/24 7:43 PM) Mean Arterial Pressure Cuff 79 mmHg (02/04/24 11: AM) 72 mmHg (02/04/24 7:23 AM) 76 mmHg (02/03/24 4:34 PM) Weight 142.05 kg (02/04/24 7:23 AM) 139.5 kg (02/02/24 2:33 PM) 139.3 kg (02/02/24 8:43 AM) Weight Measured (lbs) 313.166 lb (02/04/24 7:23 AM) Weight Dosing 139.300 kg (02/02/24 8:43 AM) Height 149 cm (02/02/24 2:33 PM) BSA Measured 2.4 m2 (02/02/24 2:33 PM) BSA Estimated 0 m2 (02/02/24 2:33 PM) Body Mass Index 62.84 kg/m2 (02/02/24 2:33 PM) Body Mass Index Estimated 62.74 kg/m2 (02/02/24 8:43 AM) Height/Length Estimated 149 cm (02/02/24 8:43 AM) Social History Social History Type Response Tobacco Never tobacco user T obacco Use:. Sex Female Hospital Discharge Instructions Patient Education 02/04/2024 08:46:17 Community-Acquired Pneumonia, Adult Community-Acquired Pneumonia, Adult Pneumonia is a lung infection that causes inflammation and the buildup of mucus and fluids in the lungs. This may cause coughing and difficulty breathing. Community-acquired pneumonia is pneumonia that develops in people who are not, and have not recently been, in a hospital or other health care facility. Usually, pneumonia develops as a result of an illness that is caused by a virus, such as the commoncold and the flu (influenza). It can also be caused by bacteria or fungi. While the common cold andinfluenza can pass from person to person (are contagious), pneumonia itself is not considered contagious. What are the causes? This condition may be caused by: ??? Viruses. ??? Bacteria. ??? Fungi. What increases the risk? The following factors may make you more likely to develop this condition: ??? Being over age 65 or having certain medical conditions, such as: ??? A long-term (chronic) disease, such as: chronic obstructive pulmonary disease (COPD), asthma, heart failure, diabetes, or kidney disease. ??? A condition that increases the risk of breathing in (aspirating) mucus and other fluids from your mouth and nose. ??? A weakened body defense system (immune system). ??? Having had your spleen removed (splenectomy). The spleen is the organ that helps fight germs and infections. ??? Not cleaning your teeth and gums well (poor dental hygiene). ??? Using tobacco products. ??? Traveling to places where germs that cause pneumonia are present or being near certain animals or animal habitats that could have germs that cause pneumonia. What are the signs or symptoms? Symptoms of this condition include: ??? A dry cough or a wet (productive) cough. ??? A fever, sweating, or chills. ??? Chest pain, especially when breathing deeply or coughing. ??? Fast breathing, difficulty breathing, or shortness of breath. ??? Tiredness (fatigue) and muscle aches. How is this diagnosed? This condition may be diagnosed based on your medical history or a physical exam. You may also havetests, including: ??? Imaging, such as a chest X-ray or lung ultrasound. ??? Tests of: ??? The level of oxygen and other gases in your blood. ??? Mucus from your lungs (sputum). ??? Fluid around your lungs (pleural fluid). ??? Your urine. How is this treated? Treatment for this condition depends on many factors, such as the cause of your pneumonia, your medicines, and other medical conditions that you have. For most adults, pneumonia may be treated at home. In some cases, treatment must happen in a hospital and may include: ??? Medicines that are given by mouth (orally) or through an IV, including: ??? Antibiotic medicines, if bacteria caused the pneumonia. ??? Medicines that kill viruses (antiviral medicines), if a virus caused the pneumonia. ??? Oxygen therapy. Severe pneumonia, although rare, may require the following treatments: ??? Mechanical ventilation.This procedure uses a machine to help you breathe if you cannot breathe well on your own or maintain a safe level of blood oxygen. ??? Thoracentesis. This procedure removes any buildup of pleural fluid to help with breathing. Follow these instructions at home: Medicines ??? Take [id number] and prescription medicines only as told by your health care provider. ??? Take cough medicine only if you have trouble sleeping. Cough medicine can prevent your body from removing mucus from your lungs. ??? If you were prescribed antibiotics, take them as told by your health care provider. Do not stoptaking the antibiotic even if you start to feel better. Lifestyle ??? Do not drink alcohol. ??? Do not use any products that contain nicotine or tobacco. These products include cigarettes, chewing tobacco, and vaping devices, such as e-cigarettes. If you need help quitting, ask your health care provider. ??? Eat a healthy diet. This includes plenty of vegetables, fruits, whole grains, low-fat dairy products, and lean protein. General instructions ??? Rest a lot and get at least 8 hours of sleep each night. ??? Sleep in a partly upright position at night. Place a few pillows under your head or sleep in a reclining chair. ??? Return to your normal activities as told by your health care provider. Ask your health care provider what activities are safe for you. ??? Drink enough fluid to keep your urine pale yellow. This helps to thin the mucus in your lungs. ??? If your throat is sore, gargle with a mixture of salt and water 3???4 times a day or as needed.To make salt water, completely dissolve ?1 tsp (3???6 g) of salt in 1 cup (237 mL) of warm water. ??? Keep all follow-up visits. How is this prevented? You can lower your risk of developing community-acquired pneumonia by: ??? Getting the pneumonia vaccine. There are different types and schedules of pneumonia vaccines. Ask your health care provider which option is best for you. Consider getting the pneumonia vaccine if: ??? You are older than 65 years of age. ??? You are 19???65 years of age and are receiving cancer treatment, have chronic lung disease, or have other medical conditions that affect your immune system. Ask your health care provider if this applies to you. ??? Getting your influenza vaccine every year. Ask your health care provider which type of vaccine is best for you. ??? Getting regular dental checkups. ??? Washing your hands often with soap and water for at least 20 seconds. If soap and water are notavailable, use hand marine firefighter. Contact a health care provider if: ??? You have a fever. ??? You have trouble sleeping because you cannot control your cough with cough medicine. Get help right away if: ??? Your shortness of breath becomes worse. ??? Your chest pain increases. ??? Your sickness becomes worse, especially if you are an older adult or have a weak immune system. ??? You cough up blood. These symptoms may be an emergency. Get help right away. Call 911. ??? Do not wait to see if the symptoms will go away. ??? Do not drive yourself to the hospital. Summary ??? Pneumonia is an infection of the lungs. ??? Community-acquired pneumonia develops in people who have not been in the hospital. It can be caused by bacteria, viruses, or fungi. ??? This condition may be treated with antibiotics or antiviral medicines. ??? Severe pneumonia may require a hospital stay and treatment to help with breathing. This information is not intended to replace advice given to you by your health care provider. Make sure you discuss any questions you have with your health care provider. Document Revised: 10/25/2022 Document Reviewed: 10/25/2022 [employer] Patient Education ?? 2022 [employer]. Follow Up Care 02/02/2024 08:43:42 With:Jamila Archer MD Address: [address] [place] [address]- When:1 month Discharge instructions * Desi Ngo: PERFORM Event Display: Discharge Instructions Authored Date: [id number] DHARA SOLIS :1995 Age:29 years Sex:Female Visit Date:02/02/2024 Primary Care Physician: Jamila Archer MD Hospital Discharge Instructions We would like to thank you for allowing us to assist you with your healthcare needs. The following includes patient education materials and information regarding your injury/illness. Your Next Steps Discharge Orders Discharge Activity Restrictions, No Restrictions Discharge Bathing Instructions, No restrictions Discharge Diet Instruction, Diabetic Diet Scheduled Future Appointments Sunday 4:30 PM EDT ?? With: Shila Krueger Where: [facility] [address] [phone] Status: Confirmed Sunday 9:20 AM EDT ?? With: Jaida Lamb MOLDER OPERATOR Where: [facility] [address] [place] [address] Status: Confirmed Sunday 12:30 PM EDT ?? With: Sully Singleton MOLDER OPERATOR Where: [facility] [address] [place] [address] Status: Confirmed Follow Up Appointments Follow Up with??Jamila Archer MD When:??Within 1 month Where: [address] [place] [address] [place] [address]- Future Orders Basic Metabolic Panel, Blood, Routine, 02/11/24, Once, Lab Collect, Acute kidney injury, Order for future visit Medications What How Much When Why Instructions Next Dose New azithromycin (azithromycin 250 mg oral tablet) 1 tab Oral (given by mouth) Every day Duration: 3 Days Pickup at [facility] New cefpodoxime (cefpodoxime 200 mg oral tablet) 1 tab Oral (given by mouth) Every 12 hours Duration: 4 Days Pickup at [facility] Changed Other Prescription (ONETOUCH VERIO FLEX KIT) 1 each by [facility]. (non drug: combo route) route 4 times daily. ?? Changed Other Prescription (ONETOUCH VERIO MARLENE) Test blood glucose withone new test strip 4 times daily ?? Changed bifidobacterium-lactobacillus (Probiotic 10 Ultra Strength) 1 Capsules Oral (given by mouth) Every day Changed cetirizine (cetirizine 10 mg oral tablet) 1 tab Oral (given by mouth) 2 times a day Changed tirzepatide (Mounjaro 2.5 mg/ 0.5 mL subcutaneous solution) 2.5 Milligrams Subcutaneous (under the skin) Every week rotate injection sites ?? Unchanged albuterol (albuterol 90 mcg/ inh aerosol [...] Oral (given by mouth) Every day Unchanged Durable Medical Equipment for Prescription (B-D UF III SHORT PEN NEED [facility]) See instructions Use one new pen needle [...] Oral (given by mouth) Every day Unchanged meclizine (meclizine 25 mg oral tablet) 1 tab Oral (given by mouth) 3 times a day as needed for as needed for dizziness Unchanged metoprolol (Toprol-XL 25 mg oral tablet, extended release) 1 tab Oral (given by mouth) Every day Type 2 myocardial infarction Unchanged sodium chloride nasal ([place] 0.65% nasal spray) 1 Sprays Nasal (into the nose) 4 times a day as needed for as needed for dry nasal passages in each nostril ?? Unchanged torsemide (torsemide 20 mg oral tablet) 3 tab Oral (given by mouth) 2 times a day TWICE ??DAIY. ?? Pharmacy Information [id number]: [address] [place] [address] [phone] ?? What How Much When Why Comments Stop Taking ascorbic acid (Vitamin C 250 mg oral tablet) Stop Taking colchicine (colchicine 0.6 mg oral tablet) See instructions Take 1 daily x 5 days ?? Stop Taking fluconazole (Diflucan 100 mg oral tablet) 1 tab Oral (given by mouth) Every day Otitis media Duration: 7 Days Your Summary Your Care Team Admitting Physician - Maurisio Simmons DO Attending Physician - Maurisio Simmons DO Primary Care Physician - Jamila Archer MD Your Diagnosis Sepsis Multifocal pneumonia Tonsillitis Steatohepatitis Hypothyroidism HTN (hypertension) Morbid obesity HOLLIE treated with BiPAP Type 1 diabetes Problems Ongoing - Any problem that you are currently receiving treatment for. Aortic stenosis Asthma Autoimmune thyroiditis Bilateral lower [...] Tension-type headache Thyroid nodule Type 1 diabetes Tests Performed/Pending .Manual Differential (NCTY) Basic Metabolic Panel Beta hCG Quantitative Blood Gas Venous CBC w/ Diff CBC w/o Diff CMP COVID-19/Flu/RSV (GeneXpert) CRP Glucose Level Glucose POCT Hemoglobin A1c?-- Results Pending -- Lactic Acid Magnesium Level Procalcitonin Sedimentation Rate (ESR) Strep A (ID NOW) TSH w/ Rflx to Free T4 Urinalysis with Micro if Indicated and Culture if Indicated Discharge Vitals Temperature??(Temporal Artery) 99.0 ??F (37.2 ??C) Heart Rate??(Peripheral) 103 Respiratory Rate?? 24 Blood Pressure?? 130/62?? SpO2?? 91% Weight?? 313.22 lb (142.05 kg) Allergies rOPINIRole morphine oxyCODONE Education Materials Community-Acquired Pneumonia, Adult Pneumonia is a lung infection that causes inflammation and the buildup of mucus and fluids in the lungs. This may cause coughing and difficulty breathing. Community-acquired pneumonia is pneumonia that develops in people who are not, and have not recently been, in a hospital or other health care facility. Usually, pneumonia develops as a result of an illness that is caused by a virus, such as the commoncold and the flu (influenza). It can also be caused by bacteria or fungi. While the common cold andinfluenza can pass from person to person (are contagious), pneumonia itself is not considered contagious. What are the causes? This condition may be caused by: ? Viruses. ? Bacteria. ? Fungi. What increases the risk? The following factors may make you more likely to develop this condition: ? Being over age 65 or having certain medical conditions, such as: ? A long-term (chronic) disease, such as: chronic obstructive pulmonary disease (COPD), asthma, heartfailure, diabetes, or kidney disease. ? A condition that increases the risk of breathing in (aspirating) mucus and other fluids from your mouth and nose. ? A weakened body defense system (immune system). ? Having had your spleen removed (splenectomy). The spleen is the organ that helps fight germs and infections. ? Not cleaning your teeth and gums well (poor dental hygiene). ? Using tobacco products. ? Traveling to places where germs that cause pneumonia are present or being near certain animals or animal habitats that could have germs that cause pneumonia. What are the signs or symptoms? Symptoms of this condition include: ? A dry cough or a wet (productive) cough. ? A fever, sweating, or chills. ? Chest pain, especially when breathing deeply or coughing. ? Fast breathing, difficulty breathing, or shortness of breath. ? Tiredness (fatigue) and muscle aches. How is this diagnosed? This condition may be diagnosed based on your medical history or a physical exam. You may also havetests, including: ? Imaging, such as a chest X-ray or lung ultrasound. ? Tests of: ? The level of oxygen and other gases in your blood. ? Mucus from your lungs (sputum). ? Fluid around your lungs (pleural fluid). ? Your urine. How is this treated? Treatment for this condition depends on many factors, such as the cause of your pneumonia, your medicines, and other medical conditions that you have. For most adults, pneumonia may be treated at home. In some cases, treatment must happen in a hospital and may include: ? Medicines that are given by mouth (orally) or through an IV, including: ? Antibiotic medicines, if bacteria caused the pneumonia. ? Medicines that kill viruses (antiviral medicines), if a virus caused the pneumonia. ? Oxygen therapy. Severe pneumonia, although rare, may require the following treatments: ? Mechanical ventilation.This procedure uses a machine to help you breathe if you cannot breathe wellon your own or maintain a safe level of blood oxygen. ? Thoracentesis. This procedure removes any buildup of pleural fluid to help with breathing. Follow these instructions at home: Medicines ? Take [id number] and prescription medicines only as told by your health care provider. ? Take cough medicine only if you have trouble sleeping. Cough medicine can prevent your body from removing mucus from your lungs. ? If you were prescribed antibiotics, take them as told by your health care provider. Do not stop taking the antibiotic even if you start to feel better. Lifestyle ? Do not drink alcohol. ? Do not use any products that contain nicotine or tobacco. These products include cigarettes, chewing tobacco, and vaping devices, such as e-cigarettes. If you need help quitting, ask your health careprovider. ? Eat a healthy diet. This includes plenty of vegetables, fruits, whole grains, low-fat dairy products, and lean protein. General instructions ? Rest a lot and get at least 8 hours of sleep each night. ? Sleep in a partly upright position at night. Place a few pillows under your head or sleep in a reclining chair. ? Return to your normal activities as told by your health care provider. Ask your health care provider what activities are safe for you. ? Drink enough fluid to keep your urine pale yellow. This helps to thin the mucus in your lungs. ? If your throat is sore, gargle with a mixture of salt and water 3???4 times a day or as needed. To make salt water, completely dissolve ?1 tsp (3???6 g) of salt in 1 cup (237 mL) of warm water. ? Keep all follow-up visits. How is this prevented? You can lower your risk of developing community-acquired pneumonia by: ? Getting the pneumonia vaccine. There are different types and schedules of pneumonia vaccines. Ask your health care provider which option is best for you. Consider getting the pneumonia vaccine if: ? You are older than 65 years of age. ? You are 19???65 years of age and are receiving cancer treatment, have chronic lung disease, or haveother medical conditions that affect your immune system. Ask your health care provider if this applies to you. ? Getting your influenza vaccine every year. Ask your health care provider which type of vaccine is best for you. ? Getting regular dental checkups. ? Washing your hands often with soap and water for at least 20 seconds. If soap and water are not available, use hand marine firefighter. Contact a health care provider if: ? You have a fever. ? You have trouble sleeping because you cannot control your cough with cough medicine. Get help right away if: ? Your shortness of breath becomes worse. ? Your chest pain increases. ? Your sickness becomes worse, especially if you are an older adult or have a weak immune system. ? You cough up blood. These symptoms may be an emergency. Get help right away. Call 911. ? Do not wait to see if the symptoms will go away. ? Do not drive yourself to the hospital. Summary ? Pneumonia is an infection of the lungs. ? Community-acquired pneumonia develops in people who have not been in the hospital. It can be causedby bacteria, viruses, or fungi. ? This condition may be treated with antibiotics or antiviral medicines. ? Severe pneumonia may require a hospital stay and treatment to help with breathing. This information is not intended to replace advice given to you by your health care provider. Make sure you discuss any questions you have with your health care provider. Document Revised: 10/25/2022 Document Reviewed: 10/25/2022 [employer] Patient Education ?? 2022 [employer] Patient/Shed Boss Signature Patient Name:DHARA SOLIS I have received this information and my questions have been answered. Patient/Shed Boss Name: Patient/Shed Boss Signature: Relationship to Patient: Witness Name/Signature: Date: Electronically Signed on: 02/04/2024 12:29 EDTSigned by:KLEBER MORTON study * Event Display: Telemetry Strips Please click on link to view image. * Event Display: Telemetry Strips Please click on link to view image. * Event Display: Telemetry Strips Please click on link to view image. Pharmacology Progress note * Farrah Barajas: PERFORM Event Display: Pharmacy Progress Note Authored Date: [id number] Pharmacy Progress Note TelePharmacy Home Medication List Update for Medication Reconciliation 02/02/24 1:21 PM Dhara Solis 1995 ??? Person Interviewed: patient ??? Quality of Interview/accuracy of medication list: good ??? Sources used to compile medication list: ??? EMR medication list ??? SureScripts/Dispense Report ? Changes made to home medication list: o Additions: ??? Advair / ??? [place] nasal spray o Deletions: ??? Vitamin C ??? ASA ??? Fluconazole ??? Tamiflu ??? Deleted duplicates from the pt's profile - cetirizine, probiotic, mounjaro o Changes: ??? none ? Additional Notes: o Medication list updated based on information provided by the patient o Pt states that she took most of her morning meds today o Colchicine - pt has 1 dose remaining in a 5 days course (for tomorrow) o Pt takes Mounjaro once weekly on Mondays - last dose 01/28/24 o ??? Recommended changes: none ? The home medication list is now updated to the best of my knowledge and is ready to be reconciled by the provider. Please contact the TelePharmacy Medication Reconciliation Pharmacist at for any questions. ? Farrah Barajas [facility] ? Electronically Signed on 02/02/2024 13:25 EDT Farrah Barajas Respiratory therapy Hospital Progress note * Kayy Bryson: PERFORM Event Display: Respiratory Therapy Progress Note Authored Date: [id number] ??DHARA SOLIS 29 Years MEASURED Body Mass Index: 62.84 kg/m2 (02/02/24 14:33:00) BSA Measured: 2.4 m2 (02/02/24 14:33:00) Height: 149 cm (02/02/24 14:33:00) Weight: 139.5 kg (02/02/24 14:33:00) DOSING Height/Length Dosin cm (07/08/23 18:54:01) Weight Dosin.3 kg (02/02/24 08:43:00) Respiratory Shift Summary Breath Sounds: Diminished all t/o lung barnes. Shift Treatments: Symbicort BID Shift Events: Sitting up in chair with no distress. Feels that she has a cold right now. Off her hu Bipap and on RA for the rest of the day. Cough nonproductive. Respiratory Goals/Plan of Care: ABG???s: Inital _??Settings: End of Shift _Settings: Respirtory Treatment or Medication Changes: Respiratory Protocol??Aerosol Therapy Assessment and Scoring Home Medication Routine: Lung History (0) No Lung History and Non-Smoker Breath Sounds (1) Clear to slightly diminished or crackles in bases Respiratory Rate (1)??19-25 Modified Kathleen Scale or Observed Dyspnea (1) 1-2 With exertion Oxygen Therapy (0) Room air, at baseline home O2, post-op, or CHF Home Respiratory Medications (2) Rescue MDI or Neb greater than 1 time per week and/or controller medication(s) daily Inhaler Use Assessment ? Clinically Stable? Yes? Can take a slow deep breath on command? Yes? Can perform a 3 second breath hold? Yes Respiratory total Score: 5 Respiratory Guidelines 5-9 pts - QID scheduled??and Q4 PRN for SOB Electronically Signed on 02/04/2024 07:12 EDT Kayy Bryson * Rosa Mora R: PERFORM, MODIFY, MODIFY Event Display: Respiratory Therapy Progress Note Authored Date: [id number] ??DHARA SOLIS 29 Years Shift Events: 1934: Received pt awake and alert in chair on RA SPO2 96%, HR 105, RR 22 equal and nonlabored. BBS diminished bases. SOB w/ exertion. No cough. Pt received Symbicort, tolerated well with no adverse reactions noted. Pt in no acute resp distress at this time. 2254: Pt requesting HU BIPAP on to sleep. pt has 3L O2 bleed in. SPo2 on BIPAP 97%, HR 107, RR 20 equal and nonlabored. Pt in no acute resp distress at this time. 0342: Pt remains asleep on HU BIPAP w/ 3L O2. Spo2 98%, HR 85, RR 20 equal and nonlabored. Pt in noacute resp distress at this time. Respiratory Aerosol Therapy Assessment and Scoring Home Medication Routine: Advair, Albuterol Lung History (1) Smoking history less than 1 pack/day, History of lung disease(Asthma) Breath Sounds (3)??Severe or diffuse wheezes or very diminished breath sounds or crackles throughout Respiratory Rate (1)??19-25 Modified Kathleen Scale or Observed Dyspnea (1) 1-2 With exertion Oxygen Therapy (0) Room air, at baseline home O2, post-op, or CHF Home Respiratory Medications (2) Rescue MDI or Neb greater than 1 time per week and/or controller medication(s) daily Inhaler Use Assessment ? Clinically Stable? Yes? Can take a slow deep breath on command? Yes? Can perform a 3 second breath hold? Yes Respiratory total score: 8 Respiratory Guidelines 5-9 pts - QID scheduled??and Q4 PRN for SOB Scheduled bronchodilators not indicated at this time Electronically Signed on 02/04/2024 05:44 EDT Rosa Mora Rosa: PERFORM Event Display: Respiratory Therapy Progress Note Authored Date: [id number] ??DHARA SOLIS 29 Years MEASURED Body Mass Index: 62.84 kg/m2 (02/02/24 14:33:00) BSA Measured: 2.4 m2 (02/02/24 14:33:00) Height: 149 cm (02/02/24 14:33:00) Weight: 139.5 kg (02/02/24 14:33:00) DOSING Height/Length Dosin cm (07/08/23 18:54:01) Weight Dosin.3 kg (02/02/24 08:43:00) Respiratory Shift Summary Breath Sounds: Diminished all t/o lung barnes Shift Treatments: Symbicort BID Shift Events: No adverse reactions, tolerated tx well. Awake, alert and oriented. Sitting up in thechair with no signs of sob or distress. Respiratory Goals/Plan of Care: ABG???s: Inital _??Settings: End of Shift _Settings: Respirtory Treatment or Medication Changes: Respiratory Protocol??Aerosol Therapy Assessment and Scoring Home Medication Routine: Lung History (0) No Lung History and Non-Smoker Breath Sounds (1) Clear to slightly diminished or crackles in bases Respiratory Rate (1)??19-25 Modified Kathleen Scale or Observed Dyspnea _ Oxygen Therapy (0) Room air, at baseline home O2, post-op, or CHF Home Respiratory Medications (2) Rescue MDI or Neb greater than 1 time per week and/or controller medication(s) daily Inhaler Use Assessment ? Clinically Stable? Yes? Can take a slow deep breath on command? Yes? Can perform a 3 second breath hold? Yes Respiratory total Score: 3 Respiratory Guidelines 3-4 pts - Q6 PRN for SOB Electronically Signed on 02/03/2024 07:48 EDT Kayy Bryson Physician Emergency department Note * Deyvi Rodriguez MD: PERFORM Event Display: ED Note Physician Authored Date: [id number] DHARA SOLIS :1995 Age:29 years Sex:Female Visit Date:02/02/2024 Primary Care Physician: Jamila Archer MD Basic Information Time Seen: Deyvi Rodriguez MD / 02/02/2024 08:58 Chief Complaint Headache, PNA History Of Present Illness: 29-year-old female past medical history of obesity, diabetes,??aortic stenosis, asthma, C. difficile, hyperlipidemia, hypertension, hypothyroidism, pulmonary hypertension??presents with fevers and chills starting this morning,??overall not feeling well, headache,??and dyspnea. ??Denies any dysuria??hematuria vaginal discharge abdominal pain nausea vomiting neck stiffness vision changes numbness or weakness.?? Went to bed last night did not have any other symptoms. Review of Systems: Fever, chills,??headache, dyspnea Physical Exam Vitals & Measurements T:??38.1?C ??(Tympanic)?? HR:??106??(Peripheral)?? RR:??22?? BP:??94/30?? SpO2:??95%?? HT:??149??cm?? WT:??139.5??kg?? BMI:??62.84?? Pain Score:??4?? O2 Flow Rate:??3?? O2 Therapy:??Oxymask?? BSA:??2.4?? General: Alert and oriented, well nourished,?No??acute distress Eye: PERRL, EOMI,?Normal?conjunctiva HENT: Normocephalic Neck: Supple, non-tender,??has good range of motion of the neck in all directions without any reproducible stiffness or neck pain Lungs:??Diminished lung sounds but otherwise clear to auscultation bilaterally, tachypnea with labored breathing Heart:?Abnormal?? rate,?Regular??rhythm Abdomen: Soft, non-tender, non-distended Skin: No evidence of any erythema noted on full skin exam??of the whole body Psychiatric: Cooperative, appropriate mood and affect Medical Decision Makin-year-old female extensive medical history??obesity, diabetes, aortic stenosis, asthma, C. difficile, hyperlipidemia, hypertension, hypothyroidism, pulmonary hypertension presents with fevers and chills, headache, and dyspnea??starting this morning. ??She has been to the hospital?before for [facility] hospital presentation, was diagnosed with pneumonia and was meeting criteria for sepsis during her lasthospitalization within the last??several months.?? On arrival she is febrile 39.2, 150/91, 130 heart rate, respiratory 24, 94% room air. ??She is tachypneic and tachycardic, has labored breathing butclear to auscultation bilaterally. ??No signs of cellulitis on full skin exam.?? Vancomycin, Zosyn were started.?? Blood cultures pending. ?? EKG shows sinus tachycardia normal axis and intervals no ST segment elevations or depressions.? She was given ibuprofen and Tylenol for fever, headache. ??Given 2 L of IV fluids.?? Her labs showed WBC count of 10.3. ??Her pH is compensated??at 7.4 with an elevated pCO2 of 51. ??Her alk phos ASTand ALT??are all elevated but this seems to be near her baseline. ??CRP is elevated at 36,??procalcitonin elevated at 0.5, TSH is normal, and beta-hCG is negative. ??UA is negative for infection. ??Flu COVID RSV negative.?? Clinically patient is presenting with symptoms and signs of pneumonia. ??Again, she was admitted with similar presentation??within the last several months with a multifocal pneumonia. ??She does not have any respiratory reserve, continues to be tachypneic in the 30s, tachycardic after IV fluids. ??Her body habitus is also inhibiting her respiratory??compensation??for what is most likely a pneumonia.?? Will obtain CT scan of the head and neck because she has a sore throat, and I am unable to visualize the posterior oropharynx??well??due to body habitus. ?? CT of the??soft tissue neck shows??possible??tonsillitis,??I am unable to confirm whether this is the case clinically due to body habitus, however I do not feel like this is contributing to her overall clinical presentation, particularly since there is no abscess noted on the CT soft tissue neck. ??CT??of the chest does show multifocal pneumonia. ??She has presented with this in the past.?? Spoke with Dr. Simmons??who accepts admission for sepsis, multifocal pneumonia. Procedure No Qualifying Data Assessment/Plan 1.??Sepsis??A41.9 2.??Multifocal pneumonia??J18.9 3.??Tonsillitis??J03.90 4.??Steatohepatitis??K75.81 5.??Hypothyroidism??E03.9 6.??HTN (hypertension)??I10 7.??Morbid obesity??E66.01 8.??HOLLIE treated with BiPAP??G47.33 9.??Type 1 diabetes??E10.9 Orders: Blood Culture, Blood, Stat collect, ST - Stat, 02/02/24 8:45:00 EDT, Once, Nurse collect, Print Label Blood Culture, Blood, Stat collect, ST - Stat, 02/02/24 8:45:00 EDT, Once, Nurse collect, Print Label Communication Order, 02/02/24 8:45:00 EDT Medication Reconciliation Changed bifidobacterium-lactobacillus (Probiotic 10 Ultra Strength)1 Capsules Oral (given by mouth) every day. ?? Unchanged albuterol (albuterol 90 mcg/inh aerosol inhaler)1 Puffs Inhale (breathe in) every 6 hours as neededas needed for wheezing. Refills: 3. ?? allopurinol (allopurinol 100 mg oral tablet)1 tab Oral (given by mouth) every day. Refills: 0. ?? ascorbic acid (Vitamin C 250 mg oral tablet) ?? aspirin (aspirin 81 mg oral capsule)1 Capsules Oral (given by mouth) every 24 hours. Refills: 4. ?? atorvastatin (atorvastatin 40 mg oral tablet)1 tab Oral (given by mouth) every day. Refills: 3. ?? cetirizine (cetirizine 10 mg oral tablet)1 tab Oral (given by mouth) every day. Refills: 6. ?? cetirizine (cetirizine 10 mg oral tablet)1 tab Oral (given by mouth) 2 times a day. Refills: 0. ?? colchicine (colchicine 0.6 mg oral tablet)Take 1 daily x 5 days. Refills: 0. ?? Durable Medical Equipment for [...] O2 Tank)2.5L pulse dose. Refills: 0. ?? [id number] Milligrams Oral (given by mouth) every day. ?? fluconazole (Diflucan 100 mg oral tablet)1 tab Oral (given by mouth) every day for 7 Days. Refills:0. ?? fluticasone-salmeterol (Advair HFA 115 mcg-21 mcg/inh [...] in hospital and was still hypoglycemic. ?? [id number] Micrograms Oral (given by mouth) every day. [...] by mouth) every day. Refills: 4. ?? oseltamivir (Tamiflu 75 mg oral capsule)1 Capsules Oral (given by mouth) 2 times a day for 3 Days. Refills: 0. ?? Other Prescription (ONETOUCH VERIO FLEX KIT)1 each by [facility]. (non drug: combo route) route 4 times daily.. ?? Other Prescription (ONETOUCH VERIO MARLENE)Test blood glucose withone new test strip 4 times daily. ?? Other Prescription ([employer] Probiotic)1 Oral (given by mouth) every day. ?? sodium chloride nasal ([place] 0.65% nasal spray)1 Sprays Nasal (into the nose) 4 times a day as needed as needed for dry nasal passages. in each nostril. ?? tirzepatide (Mounjaro 2.5 mg/0.5 mL subcutaneous solution)2.5 Milligrams Subcutaneous (under the skin) every week. rotate injection sites. Refills: 0. ?? tirzepatide (Mounjaro 2.5 mg/0.5 mL subcutaneous [...] (09/10/2003) Medication Administration Given Sodium Chloride 0.9%, 1000 mL, IV atorvastatin, 40 mg, Oral azithromycin, IV Piggyback cefepime, IV Piggyback Humalin R U 500, 100 units, Subcutaneous ibuprofen, 800 mg, Oral insulin lispro (HumaLog) correction- resistant, 18 units, Subcutaneous NS bolus, 1000 mL, Hydration Bolus NS bolus, 1000 mL, Hydration Bolus Tylenol, 1000 mg, Oral vancomycin, 1000 mg, IV Piggyback vancomycin, 1500 mg, IV Piggyback Zosyn, IV Piggyback Allergies [...] and Differential?? LATEST RESULTS?? HISTORICAL RESULTS?? WBC?? 02/02/24 08:55?? 10.3 ??High?? 11/02/23?? 4.4 ??Low?? RBC?? 02/02/24 08:55?? 4.4?? 11/02/23?? 4.0 ??Low?? Hgb?? 02/02/24 08:55?? 12.9?? 11/02/23?? 11.6 ??Low?? Hct?? 02/02/24 08:55?? 39.7?? 11/02/23?? 35.9 ??Low?? MCV?? 02/02/24 08:55?? 90.0?? 11/02/23?? 90.9?? MCH?? 02/02/24 08:55?? 29.3?? 11/02/23?? 29.4?? MCHC?? 02/02/24 08:55?? 32.5?? 11/02/23?? 32.3?? RDW-CV?? 02/02/24 08:55?? 15.2 ??High?? 11/02/23?? 15.1 ??High?? Platelets?? 02/02/24 08:55?? 258?? 11/02/23?? 199?? Segs Man?? 02/02/24 08:55?? 86 ??High?? 10/11/23?? 86 ??High?? Lymph Man?? 02/02/24 08:55?? 8 ??Low?? 10/11/23?? 7 ??Low?? [place] Man?? 02/02/24 08:55?? 0 ??Low?? 10/11/23?? 3?? Eos Man?? 02/02/24 08:55?? 3?? 10/11/23?? 3?? Baso Man?? 02/02/24 08:55?? 0?? 10/11/23?? 0?? Band Man?? 02/02/24 08:55?? 2?? 10/11/23?? 1?? Lymph, Atyp Man?? 02/02/24 08:55?? 1? Abs Neut Man?? 02/02/24 08:55?? 9.1?? 10/11/23?? 6.7?? RBC Morph?? 02/02/24 08:55?? Normal?? 10/11/23?? Normal?? Slide Review?? 02/02/24 08:55?? Man Diff?? 10/11/23?? Man Diff? Miscellaneous Hematology?? LATEST RESULTS?? HISTORICAL RESULTS?? ESR, [place]?? 02/02/24 08:55?? 50 ??High?? 08/16/23?? 65 ??High? Blood Gases?? LATEST RESULTS?? HISTORICAL RESULTS?? pH Mirza?? 02/02/24 08:55?? 7.40?? 10/13/23?? 7.31 ??Low?? pCO2 Mirza?? 02/02/24 08:55?? 51 ??High?? 10/13/23?? 45?? pO2 Mirza?? 02/02/24 08:55?? 16?? 10/13/23?? 48?? HCO3 Venous?? 02/02/24 08:55?? 31 ??High?? 10/13/23?? 23?? O2 Sat Mirza?? 02/02/24 08:55?? 22?? 10/13/23?? 80?? CO2 Total Venous?? 02/02/24 08:55?? 33?? 10/13/23?? 24?? Base Excess Venous?? 02/02/24 08:55?? 5.3?? 10/13/23?? -3.8? Routine Chemistry?? LATEST RESULTS?? HISTORICAL RESULTS?? Sodium Level?? 02/02/24 08:55?? 139?? 11/02/23?? 143?? Potassium Level?? 02/02/24 08:55?? 4.0?? 11/02/23?? 3.9?? Chloride Level?? 02/02/24 08:55?? 99?? 11/02/23?? 102?? CO2?? 02/02/24 08:55?? 29?? 11/02/23?? 31?? Alk Phos?? 02/02/24 08:55?? 307 ??High?? 10/31/23?? 287 ??High?? AST?? 02/02/24 08:55?? 153 ??High?? 10/31/23?? 340 ??High?? ALT?? 02/02/24 08:55?? 190 ??High?? 10/31/23?? 308 ??High?? BUN?? 02/02/24 08:55?? 28 ??High?? 11/02/23?? 16?? Glucose Level?? 02/02/24 08:55?? 116 ??High?? 11/02/23?? 121 ??High?? Creatinine Level?? 02/02/24 08:55?? 1.00?? 11/02/23?? 0.69?? eGFR AA?? 02/02/24 08:55?? 79?? 11/02/23?? 123?? eGFR Non-AA?? 02/02/24 08:55?? 79?? 11/02/23?? 123?? Calcium Level?? 02/02/24 08:55?? 9.8?? 11/02/23?? 9.1?? Protein Total?? 02/02/24 08:55?? 8.5 ??High?? 10/31/23?? 7.8?? Albumin Level?? 02/02/24 08:55?? 4.0?? 10/31/23?? 3.7?? Bilirubin Total?? 02/02/24 08:55?? 0.7?? 10/31/23?? 1.1 ??High?? Lactic Acid Lvl?? 02/02/24 08:55?? 1.5?? 10/31/23?? 1.2?? CRP?? 02/02/24 08:55?? 36.8 ??High?? 08/16/23?? 9.9? Testing?? LATEST RESULTS?? HISTORICAL RESULTS?? Beta hCG Qnt?? 02/02/24 08:55?? <1 ??Low?? 10/13/23?? <1 ??Low? Thyroid Studies?? LATEST RESULTS?? HISTORICAL RESULTS?? TSH?? 02/02/24 08:55?? 1.847?? 10/13/23?? 1.239? Endocrinology?? LATEST RESULTS?? HISTORICAL RESULTS?? Procalcitonin?? 02/02/24 08:55?? 0.56 ??High?? 10/13/23?? 1.11 ??High? UA Macroscopic?? LATEST RESULTS?? HISTORICAL RESULTS?? UA Color?? 02/02/24 10:53?? Yellow?? 10/13/23?? Yellow?? UA Appear?? 02/02/24 10:53?? Clear?? 10/13/23?? Clear?? UA Glucose?? 02/02/24 10:53?? Negative?? 10/13/23?? Trace Abnormal?? UA Bili?? 02/02/24 10:53?? Negative?? 10/13/23?? Negative?? UA Ketones?? 02/02/24 10:53?? Negative?? 10/13/23?? Negative?? UA Spec Grav?? 02/02/24 10:53?? <=1.005?? 10/13/23?? 1.020?? UA Blood?? 02/02/24 10:53?? Negative?? 10/13/23?? Negative?? UA pH?? 02/02/24 10:53?? 6.5?? 10/13/23?? 5.0?? UA Protein?? 02/02/24 10:53?? Negative?? 10/13/23?? Negative?? UA Urobilinogen?? 02/02/24 10:53?? Normal?? 10/13/23?? Positive Abnormal?? UA Nitrite?? 02/02/24 10:53?? Negative?? 10/13/23?? Negative?? UA Leuk Est?? 02/02/24 10:53?? Negative?? 10/13/23?? Negative? Infectious Disease?? LATEST RESULTS?? HISTORICAL RESULTS?? Strep A -IDNOW?? 02/02/24 11:06?? Not Detected? Employed 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?? 02/02/24 08:55?? Unknown?? 10/31/23?? Unknown?? Symptomatic as defined by CDC??? 02/02/24 08:55?? Unknown?? 10/31/23?? Unknown?? Hospitalized due to COVID-19??? 02/02/24 08:55?? Unknown?? 10/31/23?? Unknown?? In ICU??? 02/02/24 08:55?? Unknown?? 10/31/23?? Unknown?? Group care resident??? 02/02/24 08:55?? Unknown?? 10/31/23?? Unknown?? status??? 02/02/24 08:55?? Unknown?? 10/31/23?? Unknown?? SARS-CoV-2(Covid19)PCR([facility]pert COVFLURSV)?? 02/02/24 08:55?? Negative?? 10/31/23?? Negative?? Flu A ([facility] COVFLURSV)?? 02/02/24 08:55?? Negative?? 10/31/23?? Positive Abnormal?? Flu B ([facility] COVFLURSV)?? 02/02/24 08:55?? Negative?? 10/31/23?? Negative?? RSV ([facility] COVFLURSV)?? 02/02/24 08:55?? Negative?? 10/31/23?? Negative? Electronically Signed on 02/02/2024 18:22 EDT Deyvi Rodriguez MD Emergency department Note * Clarisse Mcclelland M: PERFORM Event Display: ED Notes Authored Date: Progress note * Maurisio Simmons DO: PERFORM Event Display: Progress Note - Physician Authored Date: [id number] DHARA SOLIS :1995 Age:29 years Sex:Female Visit Date:02/02/2024 Primary Care Physician: Jamila Archer MD Subjective 29-year-old woman??with a history of??aortic stenosis??(valve area??2.1 cm?? by echo??11/30), asthma,??thyroiditis,??lower extremity edema,??C. difficile colitis,??gout, hyperlipidemia, hypertension,??hypothyroidism,??obstructive sleep apnea on BiPAP??with 3 L/min oxygen supplementation,??obesity,??p alpitations, pulmonary hypertension??(PAP 45??mmHg),??and type 1 diabetes??who has been diagnosed with multifocal pneumonia. ?? She is also suffering with a sore throat??though culture has not grown??anything but normal shelby. ?? Blood sugar is quite high today. ?? Did have high fevers last night??but none since??1 AM. ?? We have restarted her usual??insulin regimen??given her high sugars. Review of Systems Sore throat is most prominent;??denies chest pain, dyspnea, palpitations, dizziness, headaches, sudden visual changes, cough, or new peripheral edema. Objective Vitals & Measurements T:??36.1?C ??(Temporal Artery)?? TMIN:??36.1?C ??(Temporal Artery)?? TMAX:??41.1?C ??(Temporal Artery)?? HR:??94??(Peripheral)?? HR:??92??(Monitored)?? RR:??20?? BP:??106/51?? SpO2:??98%?? HT:??149??cm?? WT:??139.5??kg?? BMI:??62.84?? Pain Score:??4?? O2 Flow Rate:??3?? O2 Therapy:??Room air?? BSA:??2.4?? Physical Exam General: Alert and oriented woman who appears stated age??speaking in full sentences but in some distress??with a plethoric face??and oxygen by??facemask; ??apparent full command of cognitive faculties;??morbidly obese HEENT: Normocephalic; normal facial movements; extraocular muscle movements apparently normal; necksupple without adenopathy; no evidence of thyromegaly or nodularity Cardiovascular: S1-S2; ??no noted murmurs, rubs or gallops Pulmonary: Diminished air movement bilaterally with no wheezes, rales or rhonchi Abdomen: Soft, nontender with no guarding; no organomegaly; distended Skin: Warm and dry; no rashes Neurological: Moves all extremities; no focal deficits; cranial nerves 3, 4, 6, 7, 8, 11, and 12 within normal limits Musculoskeletal: 2+ edema; no obvious arthropathy Psych: normal affect; no abnormal thoughts or hallucinations evident.?Pleasant. Assessment/Plan 1.??Sepsis??A41.9 ??24-hour temperature max??was 103 degrees. ?? Seems like she may be improving now that her??temperatures normalized??but we will see if it??risesagain in the afternoon. ?? She reports feeling better. 2.??Multifocal pneumonia??J18.9 ??Continue azithromycin and cefepime. ?? No positive cultures at this time. 3.??Tonsillitis??J03.90 ??She is complaining of a sore throat and we will give her some lozenges. ?? Throat culture has been negative so far. 4.??Steatohepatitis??K75.81 ??Chronically elevated liver enzymes likely related to??fatty liver disease. 5.??Hypothyroidism??E03.9 ??Continue levothyroxine. 6.??HTN (hypertension)??I10 ??Blood pressures have been fine. 7.??Morbid obesity??E66.01 ??Severe obesity. ??She is on Mounjaro??which hopefully will help over time. 8.??HOLLIE treated with BiPAP??G47.33 ??Continue nighttime??BiPAP.?? She uses 3 L??at night with this. 9.??Type 1 diabetes??E10.9 ??Continue usual insulin regimen. ??May need more insulin as she has been ill??and her sugars this morning are quite high. Orders: Mylanta, 15 mL, Oral, Susp, every 6 hr, PRN dyspepsia, First Dose: 02/02/24 14:04:00 EDT, Routine albuterol 2.5 mg/3 mL (0.083%) inhalation solution, 2.5 mg = 3 mL, Nebulized Inhalation, Soln, every 4 hr, PRN wheezing, First Dose: 02/02/24 14:51:00 EDT, Routine allopurinol, 100 mg = 1 tab, Oral, Tab, Daily, First Dose: 02/03/24 9:00:00 EDT, Routine atorvastatin, 40 mg = 1 tab, Oral, Tab, Daily, First Dose: 02/02/24 17:00:00 EDT, Routine azithromycin, 500 mg = 1 EA, IV Piggyback, Powder-Inj, every 24 hr, Antibiotic Indication Pneumonia- CAP, Administer over: 1 hr, First Dose: 02/02/24 13:46:00 EDT, Routine, 250 mL/hr benzocaine-menthol lozenge, 1 lozenges, Mucous Membrane, Lozenge, every 2 hr for 30 days, PRN sore throat, First Dose: 02/03/24 10:10:00 EDT, Stop Date: 03/04/24 10:09:00 EDT, Physician Stop, Routine budesonide-formoterol 160 mcg-4.5 mcg/inh inhalation aerosol, Inhale, Aerosol, BID RT, First Dose: 02/02/24 19:00:00 EDT, Physician Stop, Routine, 2 inhalation(s) cefepime, 2 g = 1 EA, IV Piggyback, Powder-Inj, every 8 hr, Antibiotic Indication Pneumonia- CAP, Administer over: 0.5 hr, First Dose: 02/02/24 14:45:00 EDT, Routine, 200 mL/hr GlucaGen, 1 mg = 1 EA, Intramuscular, Kit, As Directed, PRN low blood sugar, First Dose: 02/02/24 14:48:00 EDT, Routine Dextrose 50% intravenous solution, 12.5 g 25 mL, IV Push, Soln-IV, As Directed, PRN low blood sugar, First Dose: 02/02/24 14:48:00 EDT, Routine glucose 40% oral gel, 30 g = 75 mL, Oral, Gel, As Directed, PRN low blood sugar, First Dose: 02/02/24 14:48:00 EDT, Routine glucose 40% oral gel, 15 g = 37.5 mL, Oral, Gel, As Directed, PRN low blood sugar, First Dose: 02/02/24 14:48:00 EDT, Routine Dextrose 50% intravenous solution, 25 g 50 mL, IV Push, Soln-IV, As Directed, PRN low blood sugar, First Dose: 02/02/24 14:48:00 EDT, Routine insulin lispro (HumaLog) correction- resistant, Resistant Scale, Subcutaneous, Soln, QID(ACHS), First Dose: 02/02/24 16:30:00 EDT, Routine insulin lispro, 40 units = 0.4 mL, Subcutaneous, Soln, every morning, First Dose: 02/03/24 8:00:00 EDT, Routine levothyroxine, 250 mcg = 3.33 tab, Oral, Tab, Daily, First Dose: 02/03/24 6:00:00 EDT, Routine lidocaine 1% injectable solution, 1 mg 0.1 mL, Intradermal, Soln, As Directed, PRN other (see comment), First Dose: 02/02/24 14:04:00 EDT, Routine lisinopril, 5 mg = 1 tab, Oral, Tab, Daily, First Dose: 02/02/24 21:00:00 EDT, Routine LORazepam, 0.5 mg = 1 tab, Oral, Tab, every 6 hr, PRN anxiety, First Dose: 02/02/24 14:04:00 EDT, Routine LORazepam, 0.5 mg = 1 tab, Oral, Tab, every night at bedtime, PRN sleep, First Dose: 02/02/24 14:04:00 EDT, Routine Milk of Magnesia, 30 mL, Oral, Susp, TID, PRN constipation, First Dose: 02/02/24 14:04:00 EDT, Routine Toprol-XL 25 mg oral tablet, extended release, 25 mg = 1 tab, Oral, Tab-ER, Daily, First Dose: 02/03/24 9:00:00 EDT, Routine morphine, 4 mg = 1 mL, IV Push, Soln-IV, every 2 hr, PRN pain, severe, First Dose: 02/02/24 14:04:00 EDT, Routine Narcan, 0.4 mg = 1 mL, IV Push, Soln, Once, PRN Opioid Overdose, First Dose: 02/02/24 14:04:00 EDT,Physician Stop, Routine omeprazole, 20 mg = 1 cap, Oral, Cap-DR, Daily, First Dose: 02/02/24 6:00:00 EDT, Routine ondansetron, 4 mg = 2 mL, IV Push, Soln, every 6 hr, PRN nausea/vomiting, First Dose: 02/02/24 14:04:00 EDT, Routine polyethylene glycol 3350, 17 g = 1 packets, Oral, Powder-Recon, Daily, PRN constipation, First Dose: 02/02/24 14:04:00 EDT, Routine Normal Saline Flush, 10 mL, IV Push, Soln, every 12 hr (rojas), First Dose: 02/02/24 21:00:00 EDT, Routine Sodium Chloride 0.9% 1,000 mL, Total Volume (mL): 1,000, 1,000 mL, Soln-IV, IV, 30 mL/hr, Start Date: 02/02/24 14:04:00 EDT, 139.3 kg, Populate Charting Weight From Order Humalin R, 150 units, 0.3 mL, Subcutaneous, Misc, Daily, First Dose: 02/03/24 11:30:00 EDT, Routine, Use Patient Supply Humalin R, 230 units, 0.46 mL, Subcutaneous, Misc, Daily, First Dose: 02/03/24 7:55:00 EDT, Routine, Use Patient Supply Humalin R U 500, 100 unit(s)/0.2ml, Subcutaneous, Misc, Daily, First Dose: 02/03/24 16:30:00 EDT, Routine, Use Patient Supply torsemide, 60 mg = 3 tab, Oral, Tab, BID, First Dose: 02/03/24 21:00:00 EDT, Routine torsemide, 60 mg = 3 tab, Oral, Tab, Once, First Dose: 02/03/24 11:00:00 EDT, Stop Date: 02/03/24 11:00:00 EDT, Physician Stop, Routine Ambulate, 02/02/24 14:04:00 EDT, PRN, 3 times daily Basic Metabolic Panel, Blood, Routine, 02/02/24 14:04:00 EDT, every morning, for 3 days, Lab Collect Blood Glucose Monitoring POC, 02/02/24 14:48:00 EDT, QID(ACHS), 02/02/24 16:30:00 EDT C-Reactive Protein, Blood, Routine, 02/02/24 14:04:00 EDT, every morning, for 3 days, Lab Collect Cardiac Monitoring, 02/02/24 14:04:00 EDT, Telemetry CBC w/o Diff, Blood, Routine, 02/02/24 14:04:00 EDT, every morning, for 3 days, Lab Collect Diet Order, 02/02/24 14:04:00 EDT, Diabetic Glucose Level, Blood, Routine, 02/03/24 10:00:00 EDT, Once, Lab Collect Hemoglobin A1c, Blood, Add On, 02/03/24 10:11:00 EDT, Once, Lab Collect Intake and Output, 02/02/24 14:04:00 EDT, every 8 hrs, Constant Indicator, 02/02/24 14:04:00 EDT Magnesium Level, Blood, Routine, 02/02/24 14:04:00 EDT, every morning, for 3 days, Lab Collect Notify Provider of Vital Signs, 02/02/24 14:04:00 EDT, SpO2 < 92% on 2L O2 NC, T > 101.5, HR > 100, HR < 50, SBP greater than 160, SBP less than 90, DBP greater than 90, DBP less than 50,Resp Rate greater than 30, Resp Rate less than 8, Constant Indicator Nursing Task, 02/02/24 14:48:00 EDT, Constant order Nursing Task, 02/02/24 14:48:00 EDT, Constant order PSO Admit to Inpatient, Semi-Private, Inpatient, Maurisio Simmons DO, 02/02/24 13:36:00 EDT, 02/02/24 13:36:00 EDT, 02/02/24 13:36:00 EDT, 2 midnights or more but less than 96 hrs Resuscitation Status, 02/02/24 14:04:00 EDT, Full Code Throat Culture, Throat, Throat, Routine collect, RT - Routine, 02/02/24 14:37:00 EDT, Once, Nurse collect Up to Chair, 02/02/24 14:04:00 EDT, TID w/ Meals Vital Signs, 02/02/24 14:04:00 EDT, Constant order, every 4 hrs Weight, 02/02/24 14:04:00 EDT, every morning Disposition:??Expect 1-2 more days of acute hospitalization before we can get her home to complete??her treatment with an oral regimen of antibiotics. Electronically Signed on 02/03/2024 10:19 EDT Maurisio Simmons DO History and physical note * Maurisio Simmons DO: PERFORM Event Display: History and Physical Authored Date: [id number] DHARA SOLIS :1995 Age:29 years Sex:Female Visit Date:02/02/2024 Primary Care Physician: Jamila Archer MD Chief Complaint Headache, PNA History of Present Illness 29-year-old woman??with a history of??aortic stenosis??(valve area??2.1 cm?? by echo??11/30), asthma,??thyroiditis,??lower extremity edema,??C. difficile colitis,??gout, hyperlipidemia, hypertension,??hypothyroidism,??obstructive sleep apnea on BiPAP??with 3 L/min oxygen supplementation,??obesity,??p alpitations, pulmonary hypertension??(PAP 45??mmHg),??and type 1 diabetes??who was in her usual state of health yesterday but for??some sniffles??but this morning awoke??feeling quite short of breath, febrile, and suffering with a sore throat. ?? She reports episodes of??rapid development of pneumonia. ?? She came to the emergency room today for further evaluation.?? Vital signs showed??blood pressure 150/91, heart rate of 130,??temperature 39.2??(high of 41.1??in ER) respiratory rate??of 24 (with a high of??47 recorded)??and an oxygen saturation of??94% on room air??but then requiring support with 3 L by oxime mask. ?? Blood work shows a white cell count of 10.3, hemoglobin 12.9 hematocrit 39.7??platelets 258. ?? ESR is 50, CRP is 36.8??venous??pH of??7.4??pCO2 51??sodium 139??potassium 4.0 chloride 99 bicarb 29??alk phos 300 AST 153 ALT 190??BUN 28??glucose 116??creatinine 1.0??calcium 9.8??protein 8.5 albumin 4.0??bilirubin 0.7??lactic acid 1.5.?? TSH was??1.847.?Beta hCG??was undetectable. ?? Procalcitonin was 0.56. ?? Urinalysis was unremarkable. ?? Chest x-ray??was unremarkable. ?? CT??neck was done??and raise the possibility of tonsillitis but showed no evidence of abscess. ?? CT chest abdomen and pelvis??showed evidence of multifocal pneumonia??and possibility of??abdominalwall cellulitis??not supported clinically. ?? Electrocardiogram shows??sinus tachycardia. ?? She was started on??Zosyn??and vancomycin in the emergency department.?? She was given Tylenol and ibuprofen for her fever. ?? Admission was requested for ongoing??treatment. ?? On my interview with the patient she feels that her??fever has broken.?? She had a remarkably high fever??for a 29-year-old recorded??of 41.1 (105 ??F). ?? She continues to suffer with some shortness of breath??and a sore throat.?? Otherwise denies headaches, visual changes, numbness, weakness, cough, palpitations, abdominal pain, diarrhea, constipation, nausea, vomiting,??new peripheral edema, rash,??or dizziness. ?? Social history: She lives with her grandmother Never smoker Rare alcohol No drugs ?? 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 ?? CODE STATUS: Full code Review of Systems See HPI Physical Exam Vitals & Measurements T:??36.5?C ??(Temporal Artery)?? TMIN:??36.5?C ??(Temporal Artery)?? TMAX:??41.1?C ??(Temporal Artery)?? HR:??106??(Peripheral)?? RR:??22?? BP:??94/30?? SpO2:??95%?? HT:??149??cm?? WT:??139.5??kg?? BMI:??62.84?? Pain Score:??7?? Pain Score:??7?? O2 Flow Rate:??3?? O2 Therapy:??Oxymask?? BSA:??2.4?? General: Alert and oriented woman who appears stated age??speaking in full sentences but in some distress??with a plethoric face??and oxygen by??facemask; ??apparent full command of cognitive faculties;??morbidly obese HEENT: Normocephalic; normal facial movements; extraocular muscle movements apparently normal; necksupple without adenopathy; no evidence of thyromegaly or nodularity Cardiovascular: S1-S2; ??no noted murmurs, rubs or gallops Pulmonary: Diminished air movement bilaterally with no wheezes, rales or rhonchi Abdomen: Soft, nontender with no guarding; no organomegaly; distended Skin: Warm and dry; no rashes Neurological: Moves all extremities; no focal deficits; cranial nerves 3, 4, 6, 7, 8, 11, and 12 within normal limits Musculoskeletal: 2+ edema; no obvious arthropathy Psych: normal affect; no abnormal thoughts or hallucinations evident.?Pleasant. Assessment/Plan 1.??Sepsis??A41.9 ??Remarkably elevated??temperature??to 41.1 ??C??suggest??substantial??immune response to what looks like a multifocal pneumonia on??CT scan. ?? Was treated with vancomycin??and??Zosyn in the emergency room but will continue treatment for??community-acquired pneumonia with??ceftriaxone and azithromycin. ?? Will follow her inflammatory markers. ?? Will give her IV fluids for a day given her??high fever??and monitor??this for resolution. ?? She is not coughing and so we cannot get a sputum culture but blood cultures are pending. 2.??Multifocal pneumonia??J18.9 Cefepime and azithromycin. ?? Will follow blood work??and change course if necessary. 3.??Tonsillitis??J03.90 ??Will check a throat??culture??but should be covered by current antibiotic regimen. 4.??Steatohepatitis??K75.81 ??Liver enzymes have been persistently elevated. ?? CT scan is suggestive of steatosis. 5.??Hypothyroidism??E03.9 ??Continue her??thyroid hormone levels.?? TSH was checked and in the normal range. 6.??HTN (hypertension)??I10 ??Blood pressures have varied??from low to high??but currently??sufficient. 7.??Morbid obesity??E66.01 ??Likely has some??obesity hypoventilation. 8.??HOLLIE treated with BiPAP??G47.33 ??Uses 3 L/min oxygen supplementation??with her BiPAP every night.?? Will continue that therapy here. 9.??Type 1 diabetes??E10.9 ??Takes Humulin R??230 units with breakfast, 150 units with lunch, and 100 units with dinner.?? Radha uses lispro 40 units??in the morning if her sugars are excessively high. ?? Will reduce her Humulin to 100 units with meals initially as she has had low sugars in the past??while hospitalized. Orders: acetaminophen, 650 mg = 2 tab, Oral, Tab, every 6 hr, PRN pain, mild, First Dose: 02/02/24 14:04:00EDT, Routine Tylenol, 1,000 mg = 100 mL, IV Piggyback, Soln-IV, every 6 hr (rojas) for 3 days, PRN fever, Administer over: 15 minutes, First Dose: 02/02/24 14:28:00 EDT, Stop Date: 02/05/24 14:27:00 EDT, Physician Stop, Routine Mylanta, 15 mL, Oral, Susp, every 6 hr, PRN dyspepsia, First Dose: 02/02/24 14:04:00 EDT, Routine allopurinol, 100 mg = 1 tab, Oral, Tab, Daily, First Dose: 02/03/24 9:00:00 EDT, Routine atorvastatin, 40 mg = 1 tab, Oral, Tab, Daily, First Dose: 02/02/24 17:00:00 EDT, Routine azithromycin, 500 mg = 1 EA, IV Piggyback, Powder-Inj, every 24 hr, Antibiotic Indication Pneumonia- CAP, Administer over: 1 hr, First Dose: 02/02/24 13:46:00 EDT, Routine, 250 mL/hr budesonide-formoterol 160 mcg-4.5 mcg/inh inhalation aerosol, Inhale, Aerosol, BID, First Dose: 02/02/24 21:00:00 EDT, Physician Stop, Routine, 2 inhalation(s) cefepime, 2 g = 1 EA, IV Piggyback, Powder-Inj, every 8 hr, Antibiotic Indication Pneumonia- CAP, First Dose: 02/02/24 14:45:00 EDT, Routine, 200 mL/hr GlucaGen, 1 mg, Intramuscular, Powder-Inj, As Directed, PRN low blood sugar, First Dose: 02/02/24 14:48:00 EDT, Routine Dextrose 50% intravenous solution, 25 mL, IV Push, Soln, As Directed, PRN low blood sugar, First Dose: 02/02/24 14:48:00 EDT, Routine glucose 40% oral gel, 30 g = 75 mL, Oral, Gel, As Directed, PRN low blood sugar, First Dose: 02/02/24 14:48:00 EDT, Routine glucose 40% oral gel, 15 g = 37.5 mL, Oral, Gel, As Directed, PRN low blood sugar, First Dose: 02/02/24 14:48:00 EDT, Routine Dextrose 50% intravenous solution, 50 mL, IV Push, Soln, As Directed, PRN low blood sugar, First Dose: 02/02/24 14:48:00 EDT, Routine insulin lispro (HumaLog) correction- resistant, Resistant Scale, Subcutaneous, Soln, QID(ACHS), First Dose: 02/02/24 16:30:00 EDT, Routine insulin lispro, 40 units = 0.4 mL, Subcutaneous, Soln, every morning, First Dose: 02/03/24 8:00:00 EDT, Routine HumuLIN R, 100 units = 1 mL, Subcutaneous, Soln, AC, First Dose: 02/02/24 16:30:00 EDT, Routine levothyroxine, 250 mcg = 3.33 tab, Oral, Tab, Daily, First Dose: 02/03/24 6:00:00 EDT, Routine lidocaine 1% injectable solution, 1 mg 0.1 mL, Intradermal, Soln, As Directed, PRN other (see comment), First Dose: 02/02/24 14:04:00 EDT, Routine lisinopril, 5 mg = 1 tab, Oral, Tab, Daily, First Dose: 02/03/24 9:00:00 EDT, Routine LORazepam, 0.5 mg = 1 tab, Oral, Tab, every 6 hr, PRN anxiety, First Dose: 02/02/24 14:04:00 EDT, Routine LORazepam, 0.5 mg = 1 tab, Oral, Tab, every night at bedtime, PRN sleep, First Dose: 02/02/24 14:04:00 EDT, Routine Milk of Magnesia, 30 mL, Oral, Susp, TID, PRN constipation, First Dose: 02/02/24 14:04:00 EDT, Routine Toprol-XL 25 mg oral tablet, extended release, 25 mg = 1 tab, Oral, Tab-ER, Daily, First Dose: 02/03/24 9:00:00 EDT, Routine morphine, 4 mg = 1 mL, IV Push, Soln-IV, every 2 hr, PRN pain, severe, First Dose: 02/02/24 14:04:00 EDT, Routine Narcan, 0.4 mg = 1 mL, IV Push, Soln, Once, PRN Opioid Overdose, First Dose: 02/02/24 14:04:00 EDT,Physician Stop, Routine omeprazole, 20 mg = 1 cap, Oral, Cap-DR, Daily, First Dose: 02/02/24 6:00:00 EDT, Routine ondansetron, 4 mg = 2 mL, IV Push, Soln, every 6 hr, PRN nausea/vomiting, First Dose: 02/02/24 14:04:00 EDT, Routine polyethylene glycol 3350, 17 g = 1 packets, Oral, Powder-Recon, Daily, PRN constipation, First Dose: 02/02/24 14:04:00 EDT, Routine Normal Saline Flush, 10 mL, IV Push, Soln, every 12 hr (rojas), First Dose: 02/02/24 21:00:00 EDT, Routine Sodium Chloride 0.9% 1,000 mL, Total Volume (mL): 1,000, 1,000 mL, Soln-IV, IV, 100 mL/hr, Order Duration: 24 hr, Start Date: 02/02/24 14:04:00 EDT, Stop Date: 02/03/24 14:03:00 EDT, 139.3 kg, Populate Charting Weight From Order Sodium Chloride 0.9% 1,000 mL, Total Volume (mL): 1,000, 1,000 mL, Soln-IV, IV, 30 mL/hr, Start Date: 02/02/24 14:04:00 EDT, 139.3 kg, Populate Charting Weight From Order torsemide, 60 mg = 3 tab, Oral, Tab, BID, First Dose: 02/02/24 14:00:00 EDT, Routine Ambulate, 02/02/24 14:04:00 EDT, PRN, 3 times daily Basic Metabolic Panel, Blood, Routine, 02/02/24 14:04:00 EDT, every morning, for 3 days, Lab Collect Blood Glucose Monitoring POC, 02/02/24 14:48:00 EDT, QID(ACHS), 02/02/24 16:30:00 EDT C-Reactive Protein, Blood, Routine, 02/02/24 14:04:00 EDT, every morning, for 3 days, Lab Collect Cardiac Monitoring, 02/02/24 14:04:00 EDT, Telemetry CBC w/o Diff, Blood, Routine, 02/02/24 14:04:00 EDT, every morning, for 3 days, Lab Collect Diet Order, 02/02/24 14:04:00 EDT, Diabetic Intake and Output, 02/02/24 14:04:00 EDT, every 8 hrs, Constant Indicator, 02/02/24 14:04:00 EDT Magnesium Level, Blood, Routine, 02/02/24 14:04:00 EDT, every morning, for 3 days, Lab Collect Notify Provider of Vital Signs, 02/02/24 14:04:00 EDT, SpO2 < 92% on 2L O2 NC, T > 101.5, HR > 100, HR < 50, SBP greater than 160, SBP less than 90, DBP greater than 90, DBP less than 50,Resp Rate greater than 30, Resp Rate less than 8, Constant Indicator Nursing Task, 02/02/24 14:48:00 EDT, Constant order Nursing Task, 02/02/24 14:48:00 EDT, Constant order PSO Admit to Inpatient, Semi-Private, Inpatient, Maurisio Simmons DO, 02/02/24 13:36:00 EDT, 02/02/24 13:36:00 EDT, 02/02/24 13:36:00 EDT, 2 midnights or more but less than 96 hrs Resuscitation Status, 02/02/24 14:04:00 EDT, Full Code RT Eval and Treat Protocol, 02/02/24 14:04:00 EDT, Stop date 02/02/24 14:04:00 EDT, Rosy Venegas Throat Culture, Throat, Throat, Routine collect, RT - Routine, 02/02/24 14:37:00 EDT, Once, Nurse collect Up to Chair, 02/02/24 14:04:00 EDT, TID w/ Meals Vital Signs, 02/02/24 14:04:00 EDT, Constant order, every 4 hrs Weight, 02/02/24 14:04:00 EDT, every morning Disposition:??Expect??1 to 2 days of acute hospitalization??as she recovers from her pneumonia??which has come on quite suddenly.?? Hopefully she recovers as quickly and can??complete her??therapy athome with oral medications. Problem List/Past Medical History Ongoing Aortic stenosis [...] of fracture (12/22/2020)???Adenoidectomy (09/10/2013)???Tonsillectomy (09/10/2003) Medications Inpatient acetaminophen, 650 mg= 2 tab, Oral, every 6 hr, PRN allopurinol, 100 mg= 1 tab, Oral, Daily atorvastatin, 40 mg= 1 tab, Oral, Daily azithromycin budesonide-formoterol 160 mcg-4.5 mcg/inh inhalation aerosol, 2 inhalation(s), Inhale, BID cefepime Dextrose 50% intravenous solution, 25 mL, IV Push, As Directed, PRN Dextrose 50% intravenous solution, 50 mL, IV Push, As Directed, PRN GlucaGen, 1 mg, Intramuscular, As Directed, PRN glucose 40% oral gel, 15 g= 37.5 mL, Oral, As Directed, PRN glucose 40% oral gel, 30 g= 75 mL, Oral, As Directed, PRN HumuLIN R, 100 units= 1 mL, Subcutaneous, AC insulin lispro, 40 units= 0.4 mL, Subcutaneous, every morning insulin lispro (HumaLog) correction- resistant, Resistant Scale, Subcutaneous, QID(ACHS) levothyroxine, 250 mcg= 3.33 tab, Oral, Daily lidocaine 1% injectable solution, 1 mg= 0.1 mL, Intradermal, As Directed, PRN lisinopril, 5 mg= 1 tab, Oral, Daily LORazepam, 0.5 mg= 1 tab, Oral, every 6 hr, PRN LORazepam, 0.5 mg= 1 tab, Oral, every night at bedtime, PRN Milk of Magnesia, 30 mL, Oral, TID, PRN morphine, 4 mg= 1 mL, IV Push, every 2 hr, PRN Mylanta, 15 mL, Oral, every 6 hr, PRN Narcan, 0.4 mg= 1 mL, IV Push, Once, PRN Normal Saline Flush, 10 mL, IV Push, every 12 hr (rojas) omeprazole, 20 mg= 1 cap, Oral, Daily ondansetron, 4 mg= 2 mL, IV Push, every 6 hr, PRN polyethylene glycol 3350, 17 g= 1 packets, Oral, Daily, PRN Sodium Chloride 0.9% 1,000 mL, 1000 mL, IV Sodium Chloride 0.9% 1,000 mL, 1000 mL, IV Toprol-XL 25 mg oral tablet, extended release, 25 mg= 1 tab, Oral, Daily torsemide, 60 mg= 3 tab, Oral, BID Tylenol, 1000 mg= 100 mL, IV Piggyback, every 6 hr (rojas), PRN Home Advair HFA 115 mcg-21 mcg/inh inhalation aerosol, 2 puffs, Inhale, BID albuterol 90 mcg/inh aerosol inhaler, 1 puffs, Inhale, every 6 hr, PRN, 3 refills allopurinol 100 mg oral tablet, 100 mg= 1 tab, Oral, Daily aspirin 81 mg oral capsule, 81 mg= 1 cap, Oral, every 24 hr, 4 refills atorvastatin 40 mg oral tablet, 40 mg= 1 tab, Oral, Daily, 3 refills B-D UF III SHORT PEN NEED MIS, See instructions cetirizine 10 mg oral tablet, 1 tab, Oral, BID cetirizine 10 mg oral tablet, 10 mg= 1 tab, Oral, Daily, 6 refills colchicine 0.6 mg oral tablet, See Instructions Dexcom CGM- change q10 days, See instructions Diflucan 100 mg oral tablet, 100 mg= 1 tab, Oral, Daily elderberry, 350 mg, Oral, Daily Glucagon Emergency Kit for Low Blood Sugar, See Instructions, PRN HumaLOG KwikPen 100 units/mL injectable solution, 40 units, Subcutaneous, every morning, 2 refills HumuLIN R KwikPen (Concentrated) 500 units/mL subcutaneous solution, See Instructions levothyroxine, 250 mcg, Oral, Daily lisinopril 5 mg oral tablet, 1 tab, Oral, Daily meclizine 25 mg oral tablet, 25 mg= 1 tab, Oral, TID, PRN Mounjaro 2.5 mg/0.5 mL subcutaneous solution, 2.5 mg, Subcutaneous, every week Mounjaro 2.5 mg/0.5 mL subcutaneous solution, 2.5 mg, Subcutaneous, every week [place] 0.65% nasal spray, 1 sprays, Nostril-Both, QID, PRN ONETOUCH VERIO FLEX KIT ONETOUCH VERIO MARLENE Portable Back Pack O2 Tank, See instructions Probiotic 10 Ultra Strength, 1 cap, Oral, Daily Tamiflu 75 mg oral capsule, 75 mg= 1 cap, Oral, BID Toprol-XL 25 mg oral tablet, extended release, 25 mg= 1 tab, Oral, Daily, 4 refills torsemide 20 mg oral tablet, 3 tab, Oral, BID Vitamin C 250 mg oral tablet [employer] Probiotic, 1, Oral, Daily Allergies rOPINIRole [...] Results Test Name Test Result Date/Time WBC 10.3 x10^3/mcL 02/02/2024 08:55 EDT RBC 4.4 x10^6/mcL 02/02/2024 08:55 EDT Hgb 12.9 g/dL 02/02/2024 08:55 EDT Hct 39.7 % 02/02/2024 08:55 EDT MCV 90.0 fL 02/02/2024 08:55 EDT MCH 29.3 pg 02/02/2024 08:55 EDT MCHC 32.5 g/dL 02/02/2024 08:55 EDT RDW-CV 15.2 % 02/02/2024 08:55 EDT Platelets 258 x10^3/mcL 02/02/2024 08:55 EDT Segs Man 86 % 02/02/2024 08:55 EDT Lymph Man 8 % 02/02/2024 08:55 EDT [place] Man 0 % 02/02/2024 08:55 EDT Eos Man 3 % 02/02/2024 08:55 EDT Baso Man 0 % 02/02/2024 08:55 EDT Band Man 2 % 02/02/2024 08:55 EDT Lymph, Atyp Man 1 % 02/02/2024 08:55 EDT Abs Neut Man 9.1 x10^3/mcL 02/02/2024 08:55 EDT RBC Morph Normal 02/02/2024 08:55 EDT Slide Review Man Diff 02/02/2024 08:55 EDT ESR, [place] 50 mm/hr 02/02/2024 08:55 EDT pH Mirza 7.40 pH unit(s) 02/02/2024 08:55 EDT pCO2 Mirza 51 mmHg 02/02/2024 08:55 EDT pO2 Mirza 16 mmHg 02/02/2024 08:55 EDT HCO3 Venous 31 mmol/L 02/02/2024 08:55 EDT O2 Sat Mirza 22 % 02/02/2024 08:55 EDT CO2 Total Venous 33 mmol/L 02/02/2024 08:55 EDT Base Excess Venous 5.3 mmol/L 02/02/2024 08:55 EDT Sodium Level 139 mmol/L 02/02/2024 08:55 EDT Potassium Level 4.0 mmol/L 02/02/2024 08:55 EDT Chloride Level 99 mmol/L 02/02/2024 08:55 EDT CO2 29 mmol/L 02/02/2024 08:55 EDT Alk Phos 307 unit/L 02/02/2024 08:55 EDT AST 153 unit/L 02/02/2024 08:55 EDT ALT 190 unit/L 02/02/2024 08:55 EDT BUN 28 mg/dL 02/02/2024 08:55 EDT Glucose Level 116 mg/dL 02/02/2024 08:55 EDT Creatinine Level 1.00 mg/dL 02/02/2024 08:55 EDT eGFR AA 79 02/02/2024 08:55 EDT eGFR Non-AA 79 02/02/2024 08:55 EDT Calcium Level 9.8 mg/dL 02/02/2024 08:55 EDT Protein Total 8.5 g/dL 02/02/2024 08:55 EDT Albumin Level 4.0 g/dL 02/02/2024 08:55 EDT Bilirubin Total 0.7 mg/dL 02/02/2024 08:55 EDT Lactic Acid Lvl 1.5 mmol/L 02/02/2024 08:55 EDT CRP 36.8 mg/L 02/02/2024 08:55 EDT Beta hCG Qnt <1 mIntlUnit/mL 02/02/2024 08:55 EDT TSH 1.847 mcIntlUnit/mL 02/02/2024 08:55 EDT Procalcitonin 0.56 ng/mL 02/02/2024 08:55 EDT UA Color YELLOW. 02/02/2024 10:53 EDT UA Appear CLEAR. 02/02/2024 10:53 EDT UA Glucose NEGATIVE 02/02/2024 10:53 EDT UA Bili NEGATIVE 02/02/2024 10:53 EDT UA Ketones NEGATIVE 02/02/2024 10:53 EDT UA Spec Grav <=1.005 02/02/2024 10:53 EDT UA Blood NEGATIVE 02/02/2024 10:53 EDT UA pH 6.5 02/02/2024 10:53 EDT UA Protein NEGATIVE 02/02/2024 10:53 EDT UA Urobilinogen 0.2 Uro 02/02/2024 10:53 EDT UA Nitrite NEGATIVE 02/02/2024 10:53 EDT UA Leuk Est NEGATIVE 02/02/2024 10:53 EDT Strep A -IDNOW Not Detected 02/02/2024 11:06 EDT Employed 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 Unknown 02/02/2024 08:55 EDT Symptomatic as defined by CDC? Unknown 02/02/2024 08:55 EDT Hospitalized due to COVID-19? Unknown 02/02/2024 08:55 EDT In ICU? Unknown 02/02/2024 08:55 EDT Group care resident? Unknown 02/02/2024 08:55 EDT status? Unknown 02/02/2024 08:55 EDT SARS-CoV-2(Covid19)PCR(GXpert COVFLURSV) NEGATIVE 02/02/2024 08:55 EDT Flu A (GXpert COVFLURSV) NEGATIVE 02/02/2024 08:55 EDT Flu B (GXpert COVFLURSV) Neg-GeneXPert 02/02/2024 08:55 EDT RSV (GXpert COVFLURSV) Neg-GeneXPert 02/02/2024 08:55 EDT Electronically Signed on 02/02/2024 14:49 EDT Maurisio Simmons DO Discharge summary * Maurisio Simmons DO: PERFORM Event Display: Discharge Summary Authored Date: [id number] DHARA SOLIS :1995 Age:29 years Sex:Female Visit Date:02/02/2024 Primary Care Physician: Jamila Archer MD Hospital Course Discharge Summary ?? Date of admission:??02/02/2024 ?? Date of discharge:??02/04/2024 ?? Discharge diagnoses:??Pneumonia ?? Consultations:??None ?? Operations/procedures:??CT chest??abdomen and pelvis??with contrast??02/02/2024??which showed evidence of multifocal pneumonia,??hepatomegaly,??and a suggestion??of??anterior??abdominal wall??cellulitis not supported??by clinical exam CT neck??with contrast??which showed??enlarged heterogeneously enhancing palatine tonsils (patient's status post??tonsillectomy) ?? Code Status:??Full code ?? Summary of presentation and course ?? 29-year-old woman??with a history of??aortic stenosis??(valve area??2.1 cm?? by echo??11/30), asthma,??thyroiditis,??lower extremity edema,??C. difficile colitis,??gout, hyperlipidemia, hypertension,??hypothyroidism,??obstructive sleep apnea on BiPAP??with 3 L/min oxygen supplementation,??obesity,??p alpitations, pulmonary hypertension??(PAP 45??mmHg),??and type 1 diabetes??who has been diagnosed with multifocal pneumonia. ?? She has responded well??to??antibiotic therapy??and has now been afebrile for??greater than 24 hours. ?? She mounted??very??high fevers??with 1 temperature??in the emergency room of 41.1 degrees C (105 ??F)??and continued to have high fevers??for the first day of her hospitalization. ?? She has been treated with azithromycin and cefepime.?? Will send her home with??3 more days of??azithromycin and??cefpodoxime.?? Cultures have not been helpful and??tailor antibiotic therapy.?? Clinically this is not consistent with a??Pseudomonas infection??and I rather avoid??fluoroquinolones??ongeneral principles for??tendon and??connective tissue??health??if this antibiotic is not clearly necessary. ?? She has had a sore throat??although throat culture has not grown any bacterium. ?? CT scan did show some??crowding of her airway??although no evidence of abscess. ??She does have a history of??tonsillectomy??though the CT was consistent with swollen tonsils??to the radiologist side.?? If she does have??an infection,??the cephalosporin??should be an effective antibiotic. ?? Her inflammatory marker has improved. ?? Her blood sugars were quite high??though in the past she has had??trouble with hypoglycemia here int hospital.?? Initially I had??reduced her dose of??Humulin R,??but did increase this to her usual??dose and then added??coverage with lispro several times. ??She did have a??low sugar in the night??but this morning her sugars seem to be??reasonably controlled.?? An A1c has been added??but will not??be complete until tomorrow??as these are only run on on holiday weekdays. ?? She was tachycardic initially although this has??improved. ??She was treated with IV fluid??but shefelt like she was??developing being peripheral edema for which she takes a high dose of torsemide. ??She wanted to restart her torsemide??and so I stopped the IV fluid.?? Is slightly above her baseline today. ??She also did get IV contrast??and will follow-up with blood work??in several days to be sure that this is normalized. ?? Disposition:We will discharge to home today on her own recognizance. ??She should follow-up with her primary care??physician, Dr. Archer,??in 1 to 2 weeks.?? She reports??having an appointment??withher gallery or museum guide??and director food and beverage??at [facility]??on Sunday, 2 days from now. ?? Greater than 30 minutes was spent on the day of discharge in coordinating care and arranging outpatient follow-up. Physical Exam Vitals & Measurements T:??37.2?C ??(Temporal Artery)?? TMIN:??36.2?C ??(Temporal Artery)?? TMAX:??37.6?C ??(Temporal Artery)?? HR:??103??(Peripheral)?? RR:??24?? BP:??130/62?? SpO2:??91%?? WT:??142.05??kg?? Pain Score:??6?? O2 Flow Rate:??3?? O2 Therapy:??Room air?? Procedure/Surgical History ???Due 10/2025 (10/31/2022)???ORIF - Open reduction and internal fixation of fracture (12/22/2020)???Adenoidectomy (09/10/2013)???Tonsillectomy (09/10/2003) Social History Alcohol Current, 1-2 times per month Electronic Cigarette/Vaping Electronic Cigarette Use: Never. 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 Home/Environment Lives with grandparents. Living situation: Home/Independent. Nutrition/Health Caffeine intake amount: about 150 mg/day. Substance Use Never Tobacco Never tobacco user Tobacco Use:. Discharge Plan 1.??Sepsis??A41.9 2.??Multifocal pneumonia??J18.9 3.??Tonsillitis??J03.90 4.??Steatohepatitis??K75.81 5.??Hypothyroidism??E03.9 6.??HTN (hypertension)??I10 7.??Morbid obesity??E66.01 8.??HOLLIE treated with BiPAP??G47.33 9.??Type 1 diabetes??E10.9 Orders: azithromycin 250 mg oral tablet, 250 mg = 1 tab, Oral, Daily, # 3 tab, 0 Refill(s), Pharmacy: [id number], 149, cm, 02/02/24 14:33:00 EDT, Height, 139.3, kg, 02/02/24 8:47:00 EDT, Weight Dosing azithromycin, 250 mg = 1 tab, Oral, Tab, Once, Antibiotic Indication Pneumonia, First Dose: 02/04/24 12:27:00 EDT, Stop Date: 02/04/24 12:27:00 EDT, Physician Stop, NOW cefpodoxime 200 mg oral tablet, 200 mg = 1 tab, Oral, every 12 hr, # 8 tab, 0 Refill(s), Pharmacy: [id number], 149, cm, 02/02/24 14:33:00 EDT, Height, 139.3, kg, 02/02/24 8:47:00 EDT, Weight Dosing pneumococcal 23-polyvalent vaccine, 0.5 mL, Intramuscular, Soln, Once, PRN other (see comment), First Dose: 02/04/24 12:27:00 EDT, Physician Stop, Routine sodium chloride 0.65% nasal spray, 1 sprays, Nostril-Both, [place], every 2 hr, PRN nasal congestion,First Dose: 02/03/24 16:20:00 EDT, Routine Basic Metabolic Panel, Blood, Routine, 02/11/24, Once, Lab Collect, Acute kidney injury, Order for future visit Discharge Activity Restrictions, No Restrictions Discharge Bathing Instructions, No restrictions Discharge Diet Instruction, Diabetic Diet Discharge Patient, 02/04/24 12:27:00 EDT, Home Independently, Home Independently Follow-up with in 1 to 2 weeks Blood work in 1 week All Diagnoses This Visit Sepsis Multifocal pneumonia Tonsillitis Steatohepatitis Hypothyroidism HTN (hypertension) Morbid obesity HOLLIE treated with BiPAP Type 1 diabetes Patient Education Community-Acquired Pneumonia, Adult Follow Up With When Contact Information Jamila Archer MD Within [address] [place] [address] [place] [address]- Additional Instructions: Medication Reconciliation New Prescription azithromycin (azithromycin 250 mg oral tablet)1 tab Oral (given by mouth) every day for 3 Days. Refills: 0. ?? cefpodoxime (cefpodoxime 200 mg oral tablet)1 tab Oral (given by mouth) every 12 hours for 4 Days. Refills: 0. ?? Changed Other Prescription (ONETOUCH VERIO FLEX KIT)1 each by [facility]. (non drug: combo route) route 4 times daily.. ?? Other Prescription (ONETOUCH VERIO MARLENE)Test blood glucose withone new test strip 4 times daily. ?? bifidobacterium-lactobacillus (Probiotic 10 Ultra Strength)1 Capsules Oral (given by mouth) every day. ?? cetirizine (cetirizine 10 mg oral tablet)1 tab Oral (given by mouth) 2 times a day. Refills: 0. ?? tirzepatide (Mounjaro 2.5 mg/0.5 mL subcutaneous solution)2.5 Milligrams Subcutaneous (under the skin) every week. rotate injection sites. Refills: 0. ?? Unchanged albuterol (albuterol 90 mcg/inh aerosol inhaler)1 [...] by mouth) every day. Refills: 3. ?? Durable Medical Equipment for Prescription (B-D UF III SHORT PEN NEED [facility])Use one new pen needle for each insulin injection 5 to 7 times per day as directed in case of pump malfunction. Refills: 0. ?? Durable Medical Equipment for Prescription (Dexcom CGM- change q10 days)See instructions for 10 Days. ?? Durable Medical Equipment for Prescription (Portable Back Pack O2 Tank)2.5L pulse dose. Refills: 0. ?? [id number] Milligrams Oral (given by mouth) every day. [...] in hospital and was still hypoglycemic. ?? [id number] Micrograms Oral (given by mouth) every day. [...] by mouth) every day. Refills: 4. ?? sodium chloride nasal ([place] 0.65% nasal spray)1 Sprays Nasal (into the nose) 4 times a day as needed as needed for dry nasal passages. in each nostril. ?? torsemide (torsemide 20 mg oral tablet)3 tab Oral (given by mouth) 2 times a day. TWICE DAIY.. Refills: 3. ?? Discontinued ascorbic acid (Vitamin C 250 mg oral tablet) ?? colchicine (colchicine 0.6 mg oral tablet)Take 1 daily x 5 days. Refills: 0. ?? fluconazole (Diflucan 100 mg oral tablet)1 tab Oral (given by mouth) every day for 7 Days. Refills:0. Electronically Signed on 02/04/2024 12:31 EDT Maurisio Simmons DO Patient Care team information Care Team Personnel Name: Jamila Archer MD Position: Physician Member Role: Informed Provider Address: Address: [address] [place] [address] [place] [address]- [place] Name: Shila Krueger Position: Ambulatory - RN/SENIOR CLIMATE ADVISOR ([facility]) Member Role: Manager [employer] Care Team Related Persons Name: EMILIO PATHAK Address: Home [address] [place] [phone] Name: LAUREN WALLACE Name: ELLIS GRAMAJO Address: Home [address] [place], [id number]
--- OUTSIDE RECORDS SUMMARY | 2024-02-29 19:10 | XMS_ITS | Continuity of Care Document ---
Author Name Unknown Organization [facility] Address [address] [place] [address] Care Team Providers Care Collections Attorney Name Role Phone Jamila Archer Primary Care Physician [phone] Encounter [facility]_[place] Date(s): 05/29/23 - 05/29/23 [facility] [address] [place] [address] Discharge Disposition: Home Allergies, Adverse Reactions, Alerts [...] instructions, # 500 EA, 0 Refill(s), Pharmacy: [facility] [id number] Start Date: 09/08/22 Status: Ordered cetirizine 10 mg oral tablet See Instructions, Take 1 tablet by mouth once daily, # 90 tab, 3 Refill(s), Pharmacy: [facility] [address], 149, cm, 03/22/23 10:48:00 EDT, Height/Length Dosing, 129.7, kg, 03/22/23 10:48:00 EDT, Weight Dosing Start Date: 03/28/23 Status: Ordered chlorthalidone 25 mg oral tablet 1 tab, Oral, Daily, # 90 tab, 0 Refill(s), Pharmacy: [facility] [address], 149, cm, 03/22/23 10:48:00 EDT, Height/Length Dosing, 129.7, kg, 03/22/23 10:48:00 EDT, Weight Dosing Start Date: 05/15/23 Status: Ordered Ciprodex 0.3%-0.1% otic suspension 4 drops, Ear-Both, BID, # 7.5 mL, 0 Refill(s), Pharmacy: [facility] [address], 149, cm, 03/22/23 10:48:00 EDT, Height/Length Dosing, 129.7, kg, 03/22/23 10:48:00 EDT, Weight Dosing Start Date: 05/22/23 Stop Date: 05/29/23 Status: Ordered Dexcom G6 sensors Dexcom G6 sensors, To check BS 4x daily, Supply, See instructions, # 6 EA, 0 Refill(s), Pharmacy: [facility] [id number] Start Date: 11/24/22 Status: Ordered Dexcom Sensors G6, change every 10 days Dexcom Sensors G6, change every 10 days, Use for BS monitoring, Supply, See instructions, # 4 EA, 3Refill(s), Pharmacy: [facility] [id number] Start Date: 01/16/23 Status: Ordered Dexcom Transmitter, change every 3 months Dexcom Transmitter, change every 3 months, Use to monitor BS, Supply, See instructions, # 1 EA, 3 Refill(s), Pharmacy: [facility] Start Date: 04/11/23 Status: Ordered Diflucan 150 mg oral tablet 150 mg = 1 tab, Oral, Once, repeat in 72 hours if no improvement, # 2 tab, 0 Refill(s), Pharmacy: [facility] [address], 149, cm, 03/22/23 10:48:00 EDT, Height/Length Dosing, [...] dose., # 90 tab, 3 Refill(s), Pharmacy: [facility] [address], 150, cm, 10/27/22 6:33:00 EST, Height/Length Dosing, 127, kg, 10/27/22 6:33:00 EST, Weight Dosing Start Date: 10/27/22 Status: Ordered lisinopril 5 mg oral tablet 5 mg = 1 tab, Oral, Daily, # 90 tab, 2 Refill(s), Pharmacy: [facility] [address], 149, cm, 03/22/23 10:48:00 EDT, Height/Length Dosing, 129.7, kg, 03/22/23 10:48:00 EDT, Weight Dosing Start Date: 05/01/23 Status: Ordered ONETOUCH VERIO FLEX KIT ONETOUCH VERIO FLEX KIT, 1 each by [facility]. (non drug: combo route) route 4 times daily. Start Date: 03/02/22 Status: Ordered ONETOUCH VERIO MARLENE ONETOUCH VERIO MARLENE, Test blood glucose withone new test strip 4 times daily Start Date: 03/02/22 Status: Ordered senna (sennosides) 3 mg oral tablet, chewable 3 mg = 1 tab, Chewed, BID, PRN as needed for constipation, # 180 tab, 1 Refill(s), Pharmacy: [facility], 149, cm, 03/22/23 10:48:00 EDT, Height/Length Dosing, 129.7, kg, 03/22/23 10:48:00 EDT, Weight Dosing Start Date: 05/01/23 Status: Ordered torsemide 20 mg oral tablet 60 mg = 3 tab, Oral, BID, take 3 tablets to equal 60mg twice daily, # 180 tab, 4 Refill(s), Pharmacy: [facility], 149, cm, 12/31/22 3:07:00 [...] Physician Member Role: Informed Provider Address: Address: [facility] [place] [address]- [place] Name: Shila Krueger Position: Ambulatory - RN/RN NEONATAL ICU ([facility]) Member Role: Psychological Stress Evaluator Care Team Related Persons Name: EMILIO PATHAK Address: Home [address] [facility] [phone] Name: ELLIS GRAMAJO Address: Home [address] [place], [phone]
--- OUTSIDE RECORDS SUMMARY | 2024-02-29 19:10 | XMS_ITS | Continuity of Care Document ---
Author Name Unknown Organization [facility] Address [address] [place] [address] Care Team Providers Care Rn Gyn Name Role Phone Jamila Archer Primary Care Physician Encounter [facility] Date(s): 04/04/23 - 04/04/[address] [address] Encounter Diagnosis Chest pain(Discharge Diagnosis) - 04/04/23 Discharge Disposition: Home or Self Care Attending Physician: Jamila Acrher MD Admitting Physician: Jamila Archer MD Referring Physician: Jamila Archer MD Allergies, Adverse Reactions, Alerts Substance Reaction Severity Status morphine Unknown Active rOPINIRole Severe Active Assessment and Plan Future Appointments Future Scheduled Tests Laboratory* Basic Metabolic Panel 01/10/23 * Basic Metabolic Panel 02/20/23 * SARS-CoV-2 (COVID-19)/Flu/RSV (GeneXpert) 08/21/22 Radiology* XR Spine Lumbosacral 4+ Views 02/27/23 Immunizations [...] instructions, # 500 EA, 0 Refill(s), Pharmacy: [facility] [address] Start Date: 09/08/22 Status: Ordered cetirizine 10 mg oral tablet See Instructions, Take 1 tablet by mouth once daily, # 90 tab, 3 Refill(s), Pharmacy: [facility] [address], 149, cm, 03/22/23 10:48:00 EDT, Height/Length Dosing, 129.7, kg, 03/22/23 10:48:00 EDT, Weight Dosing Start Date: 03/28/23 Status: Ordered chlorthalidone 25 mg oral tablet 25 mg = 1 tab, Oral, Daily, # 90 tab, 0 Refill(s), Pharmacy: [facility] [address], 149, cm, 12/31/22 3:07:00 EDT, Height/Length Dosing, 150, kg, 12/31/22 3:07:00 EDT, Weight Dosing Start Date: 02/20/23 Status: Ordered Dexcom G6 sensors Dexcom G6 sensors, To check BS 4x daily, Supply, See instructions, # 6 EA, 0 Refill(s), Pharmacy: [facility] [address] Start Date: 11/24/22 Status: Ordered Dexcom Sensors G6, change every 10 days Dexcom Sensors G6, change every 10 days, Use for BS monitoring, Supply, See instructions, # 4 EA, 3Refill(s), Pharmacy: [facility] [address] Start Date: 01/16/23 Status: Ordered Dexcom Transmitter, change every 3 months Dexcom Transmitter, change every 3 months, Use to monitor BS, Supply, See instructions, # 1 EA, 3 Refill(s), Pharmacy: [facility] [address] Start Date: 01/16/23 Status: Ordered Diflucan 150 mg oral tablet 150 mg = 1 tab, Oral, Once, Can repeat in 3 days if symptoms persist, # 2 tab, 0 Refill(s), Pharmacy: [facility], 149, cm, 12/31/22 3:07:00 EDT, [...] instructions, # 1 EA, 0 Refill(s), Pharmacy: [id number] Start Date: 12/18/22 Status: Ordered Glucagon Emergency [...] dose., # 90 tab, 3 Refill(s), Pharmacy: [facility], 150, cm, 10/27/22 6:33:00 EST, Height/Length D... Start Date: 10/27/22 Status: Ordered levothyroxine 125 mcg (0.125 mg) oral tablet 125 mcg = 1 tab, Oral, Daily, Take one tablet by mouth with water a half hour before eating or taking any other medication. Take with 100 mcg dose., # 90 tab, 3 Refill(s), Pharmacy: [facility], 150, cm, 10/27/22 6:33:00 EST, Height/Length D... Start Date: 10/27/22 Status: Ordered lisinopril 10 mg oral tablet 10 mg = 1 tab, Oral, Daily, for 90 days- dose change 10/20/2021, # 90 tab, 3 Refill(s), Pharmacy: [facility], 150, cm, 08/09/22 1:15:00 EST, Height/Length Dosing, 127.01, kg, 08/09/22 1:15:00 EST, Weight Dosing Start Date: 10/05/22 Status: Ordered magnesium gluconate 250 mg oral tablet 250 mg 1 tab, Oral, Daily, X 30 days, # 30 tab, 0 Refill(s), 04/21/23 14:51:00 EDT, Pharmacy: [facility], 149, cm, 03/22/23 10:48:00 EDT, Height/Length Dosing, 129.7, kg, 03/22/23 10:48:00EDT, Weight Dosing Start Date: 03/22/23 Stop Date: 04/21/23 Status: Ordered multivitamin adult, oral tablet 1 tab, Oral, Daily, # 90 tab, 0 Refill(s), other reason (Rx) Start Date: 03/24/22 Status: Ordered ONETOUCH VERIO FLEX KIT ONETOUCH VERIO FLEX KIT, 1 each by [facility]. (non drug: combo route) route 4 times daily. Start Date: 03/02/22 Status: Ordered ONETOUCH VERIO MARLENE ONETOUCH VERIO MARLENE, Test blood glucose withone new test strip 4 times daily Start Date: 03/02/22 Status: Ordered potassium chloride 10 mEq oral capsule, extended release 10 mEq = 1 cap, Oral, BID, X 30 days, # 60 cap, 0 Refill(s), 04/21/23 14:50:00 EDT, Pharmacy: [facility], 149, cm, 03/22/23 10:48:00 EDT, Height/Length Dosing, 129.7, kg, 03/22/23 10:48:00EDT, Weight Dosing Start Date: 03/22/23 Stop Date: 04/21/23 Status: Ordered Tessalon Perles 100 mg oral capsule 200 mg = 2 cap, Oral, TID, PRN as needed for cough, do not crush or chew, # 84 cap, 0 Refill(s), Pharmacy: [facility], 149, cm, 12/31/22 3:07:00 EDT, Height/Length Dosing, 150, kg, 12/31/22 3:07:00 EDT, Weight Dosing Start Date: 01/02/23 Stop Date: 01/16/23 Status: Ordered torsemide 20 mg oral tablet 60 mg = 3 tab, Oral, BID, take 3 tablets to equal 60mg twice daily, # 180 tab, 4 Refill(s), Pharmacy: [facility], 149, cm, 12/31/22 3:07:00 EDT, Height/Length Dosing, 150, kg, 12/31/22 3:07:00 EDT, Weight Dosing Start Date: 02/28/23 Status: Ordered triamcinolone 0.1% topical cream 1 [place], Topical, BID, # 60 g, 0 Refill(s), Pharmacy: [facility], 150, cm, 11/18/22 19:16:00 EST, [...] hr, # 30 tab, 0 Refill(s), Pharmacy: [facility], 150, cm, 226:18:00 [...] tobacco user T obacco Use:. Sex Female Cardiology * Larisa Florentino: PERFORM Event Display: Event Monitor Authored Date: [id number] MARIELOS MIRAMONTES 1995 [id number] Patient placed on [employer] event monitor 10 days on 04/04/23. Electronically Signed on 04/04/23 04:36 PM Larisa Florentino * Mary Isbell: PERFORM Event Display: Event Monitor Authored Date: [id number] Patient Care team information Care Team Personnel Name: Jamila Archer MD Position: Physician Member Role: Informed Provider Address: Address: [place] [address]- [place] Name: Shila Krueger Position: Ambulatory - RN/FIRE EXTINGUISHER TESTER ([facility]) Member Role: Test Carrier Care Team Related Persons Name: PATHAKEMILIO MCINTYRE Address: [address] [place], [phone] Name: ELLIS GRAMAJO Address: Home [address] [place], [id number]
--- OUTSIDE RECORDS SUMMARY | 2024-02-29 19:10 | XMS_ITS | Continuity of Care Document ---
Author Name Unknown Organization [facility] Address [address] [place] [address] Care Team Providers Care Solid Waste Division Supervisor Name Role Phone Jamila Archer Primary Care Physician Encounter [place] Date(s): 10/26/22 - 11/29/[address] [address] Discharge Disposition: Home or Self Care Attending Physician: Sully Singleton NP Admitting Physician: Sully Singleton NP Referring Physician: Sully Singleton AMMUNITION ASSEMBLY LABORER Allergies, Adverse Reactions, Alerts Substance Reaction Severity [...] instructions, # 500 EA, 0 Refill(s), Pharmacy: [facility] [id number] Start Date: 09/08/22 Status: Ordered Bactrim DS 800 mg-160 mg oral tablet 1 tab, Oral, BID, # 20 tab, 0 Refill(s), Pharmacy: [facility] [address], 150, cm, 11/18/22 19:16:00 EST, Height/Length Dosing, 127, kg, 11/18/22 19:16:00 EST, Weight Dosing Start Date: 11/21/22 Stop Date: 12/01/22 Status: Ordered Dexcom G6 sensors Dexcom G6 sensors, To check BS 4x daily, Supply, See instructions, # 6 EA, 0 Refill(s), Pharmacy: [facility] [id number] Start Date: 11/24/22 Status: Ordered Diflucan 150 mg oral tablet 150 mg = 1 tab, Oral, Once, Can repeat in 3 days if symptoms persist, # 2 tab, 0 Refill(s), Pharmacy: [facility] [address], 150, cm, 11/18/22 19:16:00 EST, Height/Length Dosing, 127, kg, 11/18/22 19:16:00 EST, Weight Dosing Start Date: 11/21/22 Status: Ordered ergocalciferol 1.25 mg (50,000 intl units) oral capsule 50,000 IntlUnit = 1 cap, Oral, every week Start Date: 03/02/22 Status: Ordered fenofibrate 30 mg oral capsule 30 mg = 1 cap, Oral, Daily, # 90 cap, 3 Refill(s), Pharmacy: [facility] [id number], 150, cm, 10/27/22 6:33:00 EST, Height/Length Dosing, 127, kg, 10/27/22 6:33:00 EST, Weight Dosing Start Date: 10/27/22 Status: Ordered fenofibrate 40 mg oral tablet 40 mg = 1 tab, Oral, Daily, # 30 tab, 0 Refill(s), Pharmacy: [facility] [id number], 150, cm, 10/27/22 6:33:00 EST, Height/Length Dosing, [...] # 90 tab, 3 Refill(s), Pharmacy: [id number], 150, cm, 10/27/22 6:33:00 EST, Height/Length D... Start Date: 10/27/22 Status: Ordered levothyroxine 125 mcg (0.125 mg) oral tablet 125 mcg = 1 tab, Oral, Daily, Take one tablet by mouth with water a half hour before eating or taking any other medication. Take with 100 mcg dose., # 90 tab, 3 Refill(s), Pharmacy: [id number], 150, cm, 10/27/22 6:33:00 EST, Height/Length D... Start Date: 10/27/22 Status: Ordered lisinopril 10 mg oral tablet 10 mg = 1 tab, Oral, Daily, for 90 days- dose change 10/20/2021, # 90 tab, 3 Refill(s), Pharmacy: [id number], 150, cm, 08/09/22 1:15:00 EST, Height/Length Dosing, 127.01, kg, 08/09/22 1:15:00 EST, Weight Dosing Start Date: 10/05/22 Status: Ordered multivitamin adult, oral tablet 1 tab, Oral, Daily, # 90 tab, 0 Refill(s), other reason (Rx) Start Date: 03/24/22 Status: Ordered ONETOUCH VERIO FLEX KIT ONETOUCH VERIO FLEX KIT, 1 [place] [facility] [place] (non drug: combo route) route 4 times daily. Start Date: 03/02/22 Status: Ordered ONETOUCH VERIO MARLENE ONETOUCH VERIO MARLENE, Test blood glucose withone new test strip 4 times daily Start Date: 03/02/22 Status: Ordered predniSONE 20 mg oral tablet 40 mg = 2 tab, Oral, Daily, # 10 tab, 0 Refill(s), Pharmacy: [facility], 150, cm, 11/18/22 19:16:00 EST, Height/Length Dosing, 127, kg, 11/18/22 19:16:00 EST, Weight Dosing Start Date: 11/21/22 Stop Date: 11/26/22 Status: Ordered torsemide 20 mg oral tablet 1 tab, Oral, TID, PRN IF NEEDED, # 90 tab, 1 Refill(s), Pharmacy: [facility], 150, cm, 10/27/22 [...] # 30 tab, 0 Refill(s), Pharmacy: [facility], 150, cm, :18:00 EDT, Height/Length [...] Physician Member Role: Informed Provider Address: Address: [facility] [place], [place] [id number] [place] [address] Name: Shila Krueger Position: Ambulatory - RN/ASP NET SOFTWARE DEVELOPER ([facility]) Member Role: Heel Seater Care Team Related Persons Name: EMILIO PATHAK Address: Home [address] [facility] [phone] Name: ELLIS GRAMAJO Address: Home [address] [place], [id number]
--- OUTSIDE RECORDS SUMMARY | 2024-02-29 19:10 | XMS_ITS | Continuity of Care Document ---
Author Name Unknown Organization [facility] Address [address] [place] [address] Care Team Providers Care Kitchen Steward Name Role Phone Jamila Archer Primary Care Physician Encounter [place] Date(s): 11/21/22 - 11/21/[address] [address] Encounter Diagnosis Autoimmune thyroiditis(Discharge Diagnosis) - 11/21/22 Discharge Disposition: Home or Self Care Attending [...] instructions, # 500 EA, 0 Refill(s), Pharmacy: [facility] [address] Start Date: 09/08/22 Status: Ordered Bactrim DS 800 mg-160 mg oral tablet 1 tab, Oral, BID, # 20 tab, 0 Refill(s), Pharmacy: [facility] [address], 150, cm, 11/18/22 19:16:00 EST, Height/Length Dosing, 127, kg, 11/18/22 19:16:00 EST, Weight Dosing Start Date: 11/21/22 Stop Date: 12/01/22 Status: Ordered Dexcom G6 sensors Dexcom G6 sensors, To check BS 4x daily, Supply, See instructions, # 6 EA, 0 Refill(s), Pharmacy: [facility] [address] Start Date: 11/07/22 Status: Ordered Diflucan 150 mg oral tablet 150 mg = 1 tab, Oral, Once, Can repeat in 3 days if symptoms persist, # 2 tab, 0 Refill(s), Pharmacy: [facility] [address], 150, cm, 11/18/22 19:16:00 EST, Height/Length Dosing, 127, kg, 11/18/22 19:16:00 EST, Weight Dosing Start Date: 11/21/22 Status: Ordered ergocalciferol 1.25 mg (50,000 intl units) oral capsule 50,000 IntlUnit = 1 cap, Oral, every week Start Date: 03/02/22 Status: Ordered fenofibrate 30 mg oral capsule 30 mg = 1 cap, Oral, Daily, # 90 cap, 3 Refill(s), Pharmacy: [facility] [address], 150, cm, 10/27/22 6:33:00 EST, Height/Length Dosing, 127, kg, 10/27/22 6:33:00 EST, Weight Dosing Start Date: 10/27/22 Status: Ordered fenofibrate 40 mg oral tablet 40 mg = 1 tab, Oral, Daily, # 30 tab, 0 Refill(s), Pharmacy: [facility] [address], 150, cm, 10/27/22 6:33:00 EST, Height/Length Dosing, [...] dose., # 90 tab, 3 Refill(s), Pharmacy: [facility], 150, cm, 10/27/22 6:33:00 EST, Height/Length D... Start Date: 10/27/22 Status: Ordered levothyroxine 125 mcg (0.125 mg) oral tablet 125 mcg = 1 tab, Oral, Daily, Take one tablet by mouth with water a half hour before eating or taking any other medication. Take with 100 mcg dose., # 90 tab, 3 Refill(s), Pharmacy: [facility], 150, cm, 10/27/22 6:33:00 EST, Height/Length D... Start Date: 10/27/22 Status: Ordered lisinopril 10 mg oral tablet 10 mg = 1 tab, Oral, Daily, for 90 days- dose change 10/20/2021, # 90 tab, 3 Refill(s), Pharmacy: [facility], 150, cm, 08/09/22 1:15:00 EST, Height/Length Dosing, 127.01, kg, 08/09/22 1:15:00 EST, Weight Dosing Start Date: 10/05/22 Status: Ordered multivitamin adult, oral tablet 1 tab, Oral, Daily, # 90 tab, 0 Refill(s), other reason (Rx) Start Date: 03/24/22 Status: Ordered ONETOUCH VERIO FLEX KIT ONETOUCH VERIO FLEX KIT, 1 each by [facility] [place]. (non drug: combo route) route 4 times daily. Start Date: 03/02/22 Status: Ordered ONETOUCH VERIO MARLENE ONETOUCH VERIO MARLENE, Test blood glucose withone new test strip 4 times daily Start Date: 03/02/22 Status: Ordered predniSONE 20 mg oral tablet 40 mg = 2 tab, Oral, Daily, # 10 tab, 0 Refill(s), Pharmacy: [facility], 150, cm, 11/18/22 19:16:00 EST, Height/Length Dosing, 127, kg, 11/18/22 19:16:00 EST, Weight Dosing Start Date: 11/21/22 Stop Date: 11/26/22 Status: Ordered torsemide 20 mg oral tablet 1 tab, Oral, TID, PRN IF NEEDED, # 90 tab, 1 Refill(s), Pharmacy: [facility], 150, cm, 10/27/22 6:33:00 [...] hr, # 30 tab, 0 Refill(s), Pharmacy: [facility], 150, cm, 226:18:00 EDT, [...] Physician Member Role: Informed Provider Address: Address: [facility] [address]- [place] Name: Shila Krueger Position: Ambulatory - RN/SHOE COBBLER ([place]) Member Role: Senior Research Scientist Care Team Related Persons Name: EMILIO PATHAK Address: Home [address] [facility] [phone] Name: ELLIS GRAMAJO Address: Home [address] [place], [phone]
--- OUTSIDE RECORDS SUMMARY | 2024-02-29 19:11 | XMS_ITS | Continuity of Care Document ---
Author Name Unknown Organization [facility] Address [address] [place] [address] Care Team Providers Care Escrow Manager Name Role Phone Jamila Archer Primary Care Physician Encounter [place] Date(s): 10/25/22 - 10/25/[address] [address] Encounter Diagnosis Hypoglycemia(Discharge Diagnosis) - 10/25/22 Hypoglycemia, unspecified(Final) - Other care home (current) drug therapy(Final) - Discharge Disposition: Home or Self Care Attending Physician: Landon Gonzales MD Admitting Physician: Landon Gonzales MD Allergies, Adverse Reactions, Alerts Substance Reaction Severity Status morphine Unknown Active Assessment and Plan Future Appointments Future Scheduled Tests Laboratory* CBC w/ Diff 08/22/22 * Comprehensive Metabolic Panel 08/22/22 * Lipid Panel 08/22/22 * Thyroid Stimulating Hormone 08/22/22 * SARS-CoV-2 (COVID-19)/Flu/RSV (GeneXpert) 08/21/22 * Hemoglobin A1c 08/22/22 * Free T4 08/22/22 Immunizations Given and Recorded Vaccine Date Status [...] hr, # 14 tab, 0 Refill(s), Pharmacy: [facility], 150, cm, 03/14/22 6:18:00 EDT, [...] instructions, # 500 EA, 0 Refill(s), Pharmacy: [facility] Start Date: 09/08/22 Status: Ordered clotrimazole 1% topical cream 1 trenton, Topical, BID, # 300 g, 0 Refill(s), Pharmacy: [facility], 150, cm, 08/09/22 1:15:00 EST, Height/Length Dosing, 127.01, kg, 08/09/22 1:15:00 EST, Weight Dosing Start Date: 08/22/22 Status: Ordered Diflucan 150 mg oral tablet 150 mg = 1 tab, Oral, Once, May repeat second tab in 2 days if needed., # 2 tab, 0 Refill(s), Pharmacy: [facility], 150, cm, 03/14/22 6:18:00 EDT, Height/Length Dosing, 129, kg, 03/14/22 6:18:00 EDT, Weight Dosing Start Date: 03/21/22 Status: Ordered ergocalciferol 1.25 mg (50,000 intl units) oral capsule 50,000 IntlUnit = 1 cap, Oral, every week Start Date: 03/02/22 Status: Ordered Euthyrox 200 mcg (0.2 mg) oral tablet 200 mcg = 1 tab, Oral, Daily, # 90 tab, 0 Refill(s), Pharmacy: [facility], 150, cm, 03/14/22 6:18:00 [...] 10/20/2021, # 90 tab, 3 Refill(s), Pharmacy: [facility], 150, cm, 08/09/22 1:15:00 EST, Height/Length Dosing, 127.01, kg, 08/09/22 1:15:00 EST, Weight Dosing Start Date: 10/05/22 Status: Ordered multivitamin adult, oral tablet 1 tab, Oral, Daily, # 90 tab, 0 Refill(s), other reason (Rx) Start Date: 03/24/22 Status: Ordered ONETOUCH VERIO FLEX KIT ONETOUCH VERIO FLEX KIT, 1 [place] [facility] [place] (non drug: combo route) route 4 times daily. Start Date: 03/02/22 Status: Ordered ONETOUCH VERIO MARLENE ONETOUCH VERIO MARLENE, Test blood glucose withone new test strip 4 times daily Start Date: 03/02/22 Status: Ordered rOPINIRole 1 mg oral tablet See Instructions, take 1 PO two hours before bedtime, # 90 tab, 1 Refill(s), Pharmacy: [facility], 149.86, cm, 07/29/22 17:57:00 EST, Height/Length Dosing, 127.07, kg, 07/29/22 17:57:00 EST, Weight Dosing Start Date: 08/07/22 Status: Ordered Silvadene 1% topical cream 1 trenton, Topical, Daily, # 50 g, 0 Refill(s), Pharmacy: [facility] [address], 149.86, cm, 07/29/22 17:57:00 EST, Height/Length Dosing, 127.07, kg, 07/29/22 17:57:00 EST, Weight Dosing Start Date: 07/29/22 Status: Ordered torsemide 20 mg oral tablet 1 tab, Oral, TID, PRN IF NEEDED, # 90 tab, 1 Refill(s), Pharmacy: [facility], 150, cm, 08/09/22 1:15:00 EST, Height/Length Dosing, [...] Daily, # 90 tab, 3 Refill(s), Pharmacy: [facility] [address], 150, cm, 03/14/22 6:18:00 EDT, Height/Length Dosing, 129, kg, 03/14/22 6:18:00 EDT, Weight Dosing Start Date: 04/19/22 Status: Ordered ZyrTEC-D 5 mg-120 mg oral tablet, extended release 1 tab, Oral, every 24 hr, # 30 tab, 0 Refill(s), Pharmacy: [facility], 150, cm, 226:18:00 EDT, [...] Results Laboratory List Name Date Glucose POCT 10/25/22 Glucose POCT 10/25/22 Most recent to oldest [Reference Range]: 1 2 Glucose POC [74-106 mg/dL] 225 mg/dL *HI* (10/25/22 10:02 AM) 71 mg/dL *LOW* (10/25/22 8:08 AM) Vital Signs Most recent to oldest [Reference Range]: 1 2 Temperature Temporal Artery [36-38 Deg C ] 36.4 Deg C (10/25/22 10:24 AM) 35.5 Deg C *LOW* (10/25/22 7:58 AM) Peripheral Pulse Rate [60-100 bpm] 99 bp m (10/25/22 10:24 AM) 91 bpm (10/25/22 7:58 AM) Respiratory Rate [12-24 br/min] 18 br/mi n (10/25/22 10:24 AM) 16 br/min (10/25/22 7:58 AM) Blood Pressure [90-140/60-90 mmHg] 128/8 9mmHg (10/25/22 10:24 AM) 116/75mmHg (10/25/22 7:58 AM) Mean Arterial Pressure Cuff 102 mmHg (10/25/22 10:24 AM) Weight Dosing 127.01 kg (10/25/22 8:12 AM) Weight Estimated 127.01 kg (10/25/22 7:58 AM) Height/Length Dosing 149.960 cm (10/25/22 8:12 AM) Height/Length Estimated 149.960 cm (10/25/22 7:58 AM) Social History Social History Type Response Tobacco Never tobacco user T obacco Use:. Sex Female Hospital Discharge Instructions Patient Education 10/25/2022 09:06:07 Hypoglycemia, Zeaf-fi-Ujql Hypoglycemia Hypoglycemia is when the sugar (glucose) [...] instructions at home: General instructions ??? Take lroq-bdt-calctxs and prescription medicines only as told by [...] diabetes. Where to find more information ??? [place] [employer]: www.diabetes.org Contact a doctor if: [...] your local emergency services (911 int [place] ??? Do not wait to see [...] provider. Document Revised: 07/28/2021 Document Reviewed: 07/28/2021 [employer] Patient Education ?? 2021 [employer]. Follow Up Care 10/25/2022 07:58:45 With:Jamila Archer MD Address: [place] [address]- When:1 week logistics analytics manager Note * Caitlin León: PERFORM Event Display: Case Management Note Authored Date: Pt presented to ER stating that her CPAP is not working. States it stops working after 1 hour. Per pt - she contacted [facility] and they did nothing. TC to [facility] - pt can come in today with machine - p would have to empty machine prior to bringing in. Requested pt to be fit tested with her mask to make sure that it is not her mask as it records that her machine is working all night. Received paz back from Jeanie at [facility] - pt can come in at either 11 am or 4 pm - they havethe topography technician there today - he comes one x per week. Noted that pt received a new machine in 2019 - it had a recall so she was issued another machine in Aug 2021 - not eligible for a new machine. Told Jeanie that pt reported that she was told by that it was not a safe machine and would not let her use it while she was there - about 4 months ago. I did request pt to call and get that information faxed to [facility] if that is the case. Pt aware that she needs to be there - she cannot just drop off machine as she did last time - they need her present so they can do the testing with her. She was made aware of that last time per Jeanie when she had someone else drop off the machine. Pt stated that she has a friend going to her houseto milk pickup driver machine - then picking up her to take her to . EMILY w/Jeanie confirming that pt will be there for 11. * Caitlin León: PERFORM Event Display: Case Management Note Authored Date: [id number] UPDATE for Jeanie at [facility] - machine is fine - filter was clogged up. Now fixed - pt was reminded that she gets free filter every month and was instructed that she needs to replace it. Pt wasprovided with extra supplies. Emergency department Discharge instructions * Landon Gonzales MD: PERFORM, MODIFY Event Display: ED Discharge Information Authored Date: [id number] MARIELOS MIRAMONTES :1995 Age:27 years Sex:Female Visit Date:10/25/2022 Primary Care Physician: Jamila Archer MD Discharge Instructions We would like to thank you for allowing us to assist you with your healthcare needs. The following includes patient education materials and information regarding your injury/illness. Diagnosis from Today's Visit Hypoglycemia Discharge Vitals Temperature??(Temporal Artery) 95.9 ??F (35.5 ??C) Heart Rate??(Peripheral) 91 Respiratory Rate?? 16 Blood Pressure?? 116/75?? Height?? 59.04 in (149.960 cm) Weight??(Estimated) 280.06 lb (127.01 kg) Allergies morphine What to Do Next You Need to Schedule the Following Appointments Follow Up with??Jamila Archer MD When:??Within 1 week Where: [place] [address]- Upcoming Scheduled Appointments Sunday 2:30 PM EST ?? You were [...] by mouth) Every day Unchanged Other Prescription (Platypi VERIO FLEX KIT) 1 [place] [facility] [place] (non drug: combo route) route 4 times daily. ?? Unchanged Other Prescription (NeocraftsTOUCH VERIO MARLENE) Test blood glucose withone new [...] instructions at home: General instructions ? Take qcjs-jmc-zxmyhct and prescription medicines only as told by [...] diabetes. Where to find more information ? [place] [employer]: www.diabetes.org Contact a doctor if: [...] away. Call your local emergency services (911 inthe [place] ? Do not wait to see [...] Reviewed: 07/28/2021 Elsevier Patient Education ?? 2021 [employer] Tests Performed Lab Test Name Test Result Date/Time Glucose POC 225 mg/dL 10/25/2022 10:02 EST Patient/Radio Mechanic Signature Patient Name:MARIELOS MIRAMONTES I have received this information and my questions have been answered. Patient/Radio Mechanic Name: Patient/Radio Mechanic Signature: Relationship to Patient: Witness Name/Signature: Date: Electronically Signed on: 10/25/2022 10:06 ESTSigned by:ALMA Emergency department Note * Noemy Waters: PERFORM Event Display: ED Notes Authored Date: [id number] * Noemy Waters: PERFORM Event Display: ED Notes Authored Date: [id number] Patient Care team information Care Team Personnel Name: Jamila Archer MD Position: Physician Member Role: Informed Provider Address: Address: [address] Name: Abilio Schneider RN Position: Nurse Member Role: ED Nurse Name: Landon Gonzales MD Position: Physician Member Role: Attending Physician Address: Address: [address] Care Team Related Persons Name: EMILIO PATHAK Address: Home [address] [facility] [address] [facility] [phone] Name: ELLIS GRAMAJO Address: Home [address] [place], [id number]
--- OUTSIDE RECORDS SUMMARY | 2024-02-29 19:11 | XMS_ITS | Continuity of Care Document ---
Author Name Unknown Organization [facility] Address [address] [place] [address] Care Team Providers Care Boxing Promoter Name Role Phone Jamila Archer Primary Care Physician Encounter [facility] Date(s): 11/23/22 - 11/23/[address] [address] Discharge Disposition: Home or Self Care Attending Physician: Natalie Wade NP Admitting Physician: Natalie Wade NP Referring Physician: Natalie Wade VENTURE [employer]ITAL ANALYST Allergies, Adverse Reactions, Alerts Substance Reaction Severity [...] instructions, # 500 EA, 0 Refill(s), Pharmacy: [facility] [id number] Start Date: 09/08/22 Status: Ordered Bactrim DS 800 mg-160 mg oral tablet 1 tab, Oral, BID, # 20 tab, 0 Refill(s), Pharmacy: [facility] [id number], 150, cm, 11/18/22 19:16:00 EST, Height/Length Dosing, 127, kg, 11/18/22 19:16:00 EST, Weight Dosing Start Date: 11/21/22 Stop Date: 12/01/22 Status: Ordered Dexcom G6 sensors Dexcom G6 sensors, To check BS 4x daily, Supply, See instructions, # 6 EA, 0 Refill(s), Pharmacy: [facility] [id number] Start Date: 11/23/22 Status: Ordered Diflucan 150 mg oral tablet 150 mg = 1 tab, Oral, Once, Can repeat in 3 days if symptoms persist, # 2 tab, 0 Refill(s), Pharmacy: [facility] [id number], 150, cm, 11/18/22 19:16:00 EST, Height/Length Dosing, 127, kg, 11/18/22 19:16:00 EST, Weight Dosing Start Date: 11/21/22 Status: Ordered ergocalciferol 1.25 mg (50,000 intl units) oral capsule 50,000 IntlUnit = 1 cap, Oral, every week Start Date: 03/02/22 Status: Ordered fenofibrate 30 mg oral capsule 30 mg = 1 cap, Oral, Daily, # 90 cap, 3 Refill(s), Pharmacy: [facility] [id number], 150, cm, 10/27/22 6:33:00 EST, Height/Length Dosing, 127, kg, 10/27/22 6:33:00 EST, Weight Dosing Start Date: 10/27/22 Status: Ordered fenofibrate 40 mg oral tablet 40 mg = 1 tab, Oral, Daily, # 30 tab, 0 Refill(s), Pharmacy: [facility] [id number], 150, cm, 10/27/22 6:33:00 EST, Height/Length Dosing, [...] dose., # 90 tab, 3 Refill(s), Pharmacy: [id number], 150, cm, 10/27/22 6:33:00 EST, Height/Length D... Start Date: 10/27/22 Status: Ordered levothyroxine 125 mcg (0.125 mg) oral tablet 125 mcg = 1 tab, Oral, Daily, Take one tablet by mouth with water a half hour before eating or taking any other medication. Take with 100 mcg dose., # 90 tab, 3 Refill(s), Pharmacy: [id number], 150, cm, 10/27/22 6:33:00 EST, Height/Length D... Start Date: 10/27/22 Status: Ordered lisinopril 10 mg oral tablet 10 mg = 1 tab, Oral, Daily, for 90 days- dose change 10/20/2021, # 90 tab, 3 Refill(s), Pharmacy: [id number], 150, cm, 08/09/22 1:15:00 EST, Height/Length Dosing, 127.01, kg, 08/09/22 1:15:00 EST, Weight Dosing Start Date: 10/05/22 Status: Ordered multivitamin adult, oral tablet 1 tab, Oral, Daily, # 90 tab, 0 Refill(s), other reason (Rx) Start Date: 03/24/22 Status: Ordered ONETOUCH VERIO FLEX KIT ONETOUCH VERIO FLEX KIT, 1 each [place] [facility] (non drug: combo route) route 4 times daily. Start Date: 03/02/22 Status: Ordered ONETOUCH VERIO MARLENE ONETOUCH VERIO MARLENE, Test blood glucose withone new test strip 4 times daily Start Date: 03/02/22 Status: Ordered predniSONE 20 mg oral tablet 40 mg = 2 tab, Oral, Daily, # 10 tab, 0 Refill(s), Pharmacy: [id number], 150, cm, 11/18/22 19:16:00 EST, Height/Length Dosing, 127, kg, 11/18/22 19:16:00 EST, Weight Dosing Start Date: 11/21/22 Stop Date: 11/26/22 Status: Ordered torsemide 20 mg oral tablet 1 tab, Oral, TID, PRN IF NEEDED, # 90 tab, 1 Refill(s), Pharmacy: [id number], 150, cm, 10/27/22 [...] hr, # 30 tab, 0 Refill(s), Pharmacy: [id number], 150, cm, :18:00 EDT, [...] Results Laboratory List Name Date Automated Diff 11/23/22 C-Reactive Protein High Sensitivity (CRP High Sensitivity (CV Risk)) 11/23/22 CBC w/ Diff 11/23/22 Comprehensive Metabolic Panel (CMP) 11/23 D-Dimer 11/23/22 NT- Pro BNP 11/23/22 Most recent to oldest [Reference Range]: 1 WBC [5.0-10.0 x10^3/mcL] 14.2 x10^3/mcL *HI* (11/23/22 2:07 PM) RBC [4.1-5.3 x10^6/mcL] 3.8 x10^6/mcL *LOW* (11/23/22 2:07 PM) Neutro Auto [40.0-75.0 %] 67.8 % (11/23/22 2:07 PM) Lymph Auto [20.0-50.0 %] 22.5 % (11/23/22 2:07 PM) [place] Auto [2.0-15.0 %] 4.9 % (11/23/22 2:07 PM) Basophil Auto [0.0-1.0 %] 0.4 % (11/23/22 2:07 PM) BUN [7-18 mg/dL] 39 mg/dL *HI* (11/23/22 2:07 PM) Glucose Level [74-106 mg/dL] 123 mg/dL *HI* (11/23/22 2:07 PM) Potassium Level [3.5-5.1 mmol/L] 4.5 mmo l/L (11/23/22 2:07 PM) MCV [80.0-96.0] 96.0 (11/23/22 2:07 PM) AST [15-37 unit/L] 114 unit/L *HI* (11/23/22 2:07 PM) ALT [14-59 unit/L] 158 unit/L *HI* (11/23/22 2:07 PM) MCHC [31.0-35.0 g/dL] 31.4 g/dL (11/23/22 2:07 PM) Sodium Level [136-145 mmol/L] 141 mmol/L (11/23/22 2:07 PM) Hct [37.0-47.0 %] 36.0 % *LOW* (11/23/22 2:07 PM) Calcium Level [8.5-10.1 mg/dL] 9.5 mg/dL (11/23/22 2:07 PM) Albumin Level [3.4-5.0 g/dL] 3.9 g/dL (11/23/22 2:07 PM) Protein Total [6.4-8.2 g/dL] 8.5 g/dL *HI* (11/23/22 2:07 PM) MCH [26.0-32.0 pg] 30.1 pg (11/23/22 2:07 PM) Neutro Absolute 9.6 x10^3/mcL *NA* (11/23/22 2:07 PM) Bilirubin Total [0.2-1.0 mg/dL] 0.4 mg/d L (11/23/22 2:07 PM) Hgb [12.0-16.0 g/dL] 11.3 g/dL *LOW* (11/23/22 2:07 PM) Alk Phos [46-146 unit/L] 259 unit/L *HI* (11/23/22 2:07 PM) Platelets [130-450 x10^3/mcL] 355 x10^3/ mcL (11/23/22 2:07 PM) CO2 [21-32 mmol/L] 28 mmol/L (11/23/22 2:07 PM) eGFR Non-AA [>=60] 70 (11/23/22 2:07 PM) eGFR AA [>=60] 70 (11/23/22 2:07 PM) NT-proBNP [0-125 pg/mL] 153 pg/mL *HI* (11/23/22 2:07 PM) Chloride Level [98-107 mmol/L] 101 mmol/ L (11/23/22 2:07 PM) RDW-CV [11.7-17.0 %] 14.6 % (11/23/22 2:07 PM) Imm Gran Auto [0.0-0.9 %] 1.5 % *HI* (11/23/22 2:07 PM) CRP High Sens [0.00-3.00 mg/L] 4.31 mg/L *HI* (11/23/22 2:07 PM) Creatinine Level [0.55-1.02 mg/dL] 1.12 mg/dL *HI* (11/23/22 2:07 PM) D Dimer, (Quant.) [0.00-0.50 mg/L] 1.23 mg/L *HI* (11/23/22 2:07 PM) Eos, Auto [1.0-6.0 %] 2.9 % (11/23/22 2:07 PM) Social History Social History Type Response Tobacco Never tobacco user T obacco Use:. Sex Female Patient Care team information Care Team Personnel Name: Jamila Archer MD Position: Physician Member Role: Informed Provider Address: Address: [facility] [place], [place] [id number] [place] [address] Name: Shila Krueger Position: Ambulatory - RN/MANAGER [employer] ([facility]) Member Role: Sustainability Coordinator Care Team Related Persons Name: EMILIO PATHAK Address: Home [address] [facility] [phone] Name: ELLIS GRAMAJO Address: Home [address] [place], [id number]
--- OUTSIDE RECORDS SUMMARY | 2024-02-29 19:11 | XMS_ITS | Continuity of Care Document ---
Author Name Unknown Organization [facility] Address [address] [place] [address] Care Team Providers Care Buffing Wheel Former Machine Name Role Phone Jamila Archer Primary Care Physician Encounter [facility] Date(s): 07/08/23 - 07/11/23 [facility] [address] [place] [address] Encounter Diagnosis DEAN (acute kidney injury)(Discharge Diagnosis) - 07/08/23 C. difficile diarrhea(Discharge Diagnosis) - 07/09/23 Type 1 diabetes(Discharge Diagnosis) - 07/09/23 HTN (hypertension)(Discharge Diagnosis) - 07/08/23 HLD (hyperlipidemia)(Discharge Diagnosis) - 07/08/23 HOLLIE treated with BiPAP(Discharge Diagnosis) - 07/08/23 Hypothyroidism(Discharge Diagnosis) - 07/09/23 Morbid obesity(Discharge Diagnosis) - 07/09/23 Pulmonary hypertension(Discharge Diagnosis) - 07/09/23 Hypermagnesemia(Discharge Diagnosis) - 07/09/23 Aortic stenosis(Discharge Diagnosis) - 07/09/23 Peripheral edema(Discharge Diagnosis) - 07/09/23 Hyperphosphatemia(Discharge Diagnosis) - 07/09/23 Diarrhea, unspecified(Final) - Acute kidney failure, unspecified(Final) - Enterocolitis due to Clostridium difficile, not specified as recurrent(Final) - Pulmonary hypertension, unspecified(Final) - Hyperlipidemia, unspecified(Final) - Essential (primary) hypertension(Final) - Type 1 diabetes mellitus without complications(Final) - Obstructive sleep apnea (adult) (pediatric)(Final) - Hypothyroidism, unspecified(Final) - Morbid (severe) obesity due to excess calories(Final) - Dehydration(Final) - Hypermagnesemia(Final) - Nonrheumatic aortic (valve) stenosis(Final) - Edema, unspecified(Final) - [facility] (current) use of insulin(Final) - Contact with and (suspected) exposure to COVID-19(Final) - Other disorders of phosphorus metabolism(Final) - Other bed bug exterminator (current) drug therapy(Final) - Discharge Disposition: Home or Self Care Attending Physician: Maurisio Simmons DO Admitting Physician: Mahesh Pena DRILLER HAND Allergies, Adverse Reactions, Alerts Substance Reaction Severity Status morphine Unknown Active rOPINIRole Severe Active Assessment and Plan Future Appointments Future Scheduled Tests Laboratory* Basic Metabolic Panel 01/10/23 * Basic Metabolic Panel 07/16/23 * Basic Metabolic Panel 05/29/23 * Basic Metabolic Panel 02/20/23 * CBC w/ Diff 05/01/23 * Comprehensive Metabolic Panel 05/01/23 * Lipid Panel 05/01/23 * Magnesium Level 05/01/23 * SARS-CoV-2 (COVID-19)/Flu/RSV ([facility]) 08/21/22 * Hemoglobin A1c 05/01/23 * CBC w/o Diff 07/16/23 Radiology* XR Spine Lumbosacral 4+ Views 02/27/23 * NM Myocardial Rest Stress 2 Day Protocol 05/29/23 Functional Status 07/11/23 Breakfast Percent 100 07/10/23 Lunch Percent 100 07/10/23 ADLs Minimal assistance Activity Status ADL Up to toilet, Ambulating in room Personal Care Provided Gown change, Hair care, Linen change, Lotion, Gayathri care, Shampoo, Shower, Underpad change 07/09/23 Dinner Percent 100 07/09/23 Living Environment No Living Environmen t Information Available Lives In Multilevel home Lives With Family Living Situation Home independently, Home with family USP Barriers None Patient's Responsibilities Community mob ility, vp talent management, 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, Home management Home Equipment Blood glucose monito r Special Services and Community Resources None Number of Stairs Inside 12 07/08/23 Family Member Travel History No recent t [...] instructions, # 500 EA, 0 Refill(s), Pharmacy: [facility] [id number] Start Date: 09/08/22 Status: Ordered cetirizine 10 mg oral tablet 1 tab, Oral, BID, # 60 tab, 0 Refill(s), Pharmacy: [facility] [id number], 149, cm, 03/22/23 10:48:00 EDT, Height/Length Dosing, 129.7, kg, 03/22/23 10:48:00 EDT, Weight Dosing Start Date: 07/02/23 Status: Ordered Dexcom G6 sensors Dexcom G6 sensors, To check BS 4x daily, Supply, See instructions, # 6 EA, 0 Refill(s), Pharmacy: [facility] [id number] Start Date: 11/24/22 Status: Ordered Dexcom Sensors G6, change every 10 days Dexcom Sensors G6, change every 10 days, Use for BS monitoring, Supply, See instructions, # 4 EA, 3Refill(s), Pharmacy: [facility] [id number] Start Date: 01/16/23 Status: Ordered Dexcom Transmitter, change every 3 months Dexcom Transmitter, change every 3 months, Use to monitor BS, Supply, See instructions, # 1 EA, 3 Refill(s), Pharmacy: [facility] [id number] Start Date: 04/11/23 Status: Ordered elderberry 350 [...] daily, # 180 tab, 4 Refill(s), Pharmacy: [id number], 149, cm, 12/31/22 3:07:00 EDT, Height/Length Dosing, 150, kg, 12/31/22 3:07:00 EDT, Weight Dosing Start Date: 02/28/23 Status: Ordered vancomycin 125 mg oral capsule 125 mg = 1 cap, Oral, QID, # 40 cap, 0 Refill(s), Pharmacy: [id number], 149, cm, 07/08/23 18:54:00 EDT, Height/Length Dosing, 131, kg, 07/08/23 18:54:00 EDT, Weight Dosing Start Date: 07/11/23 Stop Date: 07/21/23 Status: Ordered Mental Status 07/08/23 Eye Opening Response [place] Spontaneous ly Best Verbal Response [place] Oriented Best Motor Response [place] Obeys comman ds [place] Coma Score 15 Problem List Condition Confirmation [...] Results Laboratory List Name Date Glucose POCT 07/11/23 Basic Metabolic Panel 07/11/23 CBC w/ Diff 07/11/23 Magnesium Level 07/11/23 Phosphorus Level 07/11/23 Glucose POCT 07/11/23 Automated Diff 07/11/23 Glucose POCT 07/11/23 Basic Metabolic Panel (BMP) 07/10/23 Basic Metabolic Panel 07/10/23 CBC w/ Diff 07/10/23 Magnesium Level 07/10/23 Phosphorus Level 07/10/23 Automated Diff 07/10/23 Automated Diff 07/09/23 CBC w/ Diff 07/09/23 Magnesium Level 07/09/23 Phosphorus Level 07/09/23 SARS-CoV-2 (COVID-19) RNA (ID Now) 07/08 Renal Function Panel 07/08/23 Test Urine Qual 07/08/23 Urinalysis Microscopic 07/08/23 Urinalysis with Microscopic 07/08/23 CBC w/ Diff 07/08/23 Comprehensive Metabolic Panel (CMP) 06/11 06/02 Haptoglobin [facility] 07/08/23 Lactate Dehydrogenase (LDH) 07/08/23 Lactic Acid 07/08/23 Procalcitonin 07/08/23 Most recent to oldest [Reference Range]: 1 2 3 WBC [5.0-10.0 x10^3/mcL] 8.2 x10^3/mcL (07/11/23 7:07 AM) 7.2 x10^3/mcL (07/10/23 7:07 AM) 8.9 x10^3/mcL (07/09/23 7:00 AM) RBC [4.1-5.3 x10^6/mcL] 3.3 x10^6/mcL *LOW* (07/11/23 7:07 AM) 3.2 x10^6/mcL *LOW* (07/10/23 7:07 AM) 3.4 x10^6/mcL *LOW* (07/09/23 7:00 AM) Neutro Auto [40.0-75.0 %] 49.8 % (07/11/23 7:07 AM) 48.1 % (07/10/23 7:07 AM) 46.3 % (07/09/23 7:00 AM) Lymph Auto [20.0-50.0 %] 40.7 % (07/11/23 7:07 AM) 43.0 % (07/10/23 7:07 AM) 45.2 % (07/09/23 7:00 AM) [place] Auto [2.0-15.0 %] 4.7 % (07/11/23 7:07 AM) 4.7 % (07/10/23 7:07 AM) 4.3 % (07/09/23 7:00 AM) Basophil Auto [0.0-1.0 %] 0.4 % (07/11/23 7:07 AM) 0.4 % (07/10/23 7:07 AM) 0.3 % (07/09/23 7:00 AM) BUN [7-18 mg/dL] 90 mg/dL *HI* (07/11/23 7:07 AM) 112 mg/dL *HI* (07/10/23 12:37 PM) 124 mg/dL *HI* (07/10/23 7:07 AM) Glucose POC [74-106 mg/dL] 252 mg/dL *HI* (07/11/23 11:29 AM) 283 mg/dL *HI* (07/11/23 7:05 AM) 97 mg/dL (07/11/23 2:33 AM) UA Color Yellow (07/08/23 7:48 PM) UA WBC [0-3] 0-3 (07/08/23 7:48 PM) Glucose Level [74-106 mg/dL] 300 mg/dL *HI* (07/11/23 7:07 AM) 187 mg/dL *HI* (07/10/23 12:37 PM) 241 mg/dL *HI* (07/10/23 7:07 AM) Potassium Level [3.5-5.1 mmol/L] 5.5 mmol/L *HI* (07/11/23 7:07 AM) 4.8 mmol/L (07/10/23 12:37 PM) 5.8 mmol/L *HI* (07/10/23 7:07 AM) MCV [80.0-96.0 fL] 93.4 fL (07/11/23 7:07 AM) 93.2 fL (07/10/23 7:07 AM) 91.7 fL (07/09/23 7:00 AM) UA Urobilinogen Normal (07/08/23 7:48 PM) UA Bili [Negative] Negative (07/08/23 7:48 PM) UA Ketones Negative (07/08/23 7:48 PM) AST [15-37 unit/L] 29 unit/L (07/08/23:23 PM) ALT [14-59 unit/L] 53 unit/L (07/08/23:23 PM) MCHC [31.0-35.0 g/dL] 32.8 g/dL (07/11/23 7:07 AM) 32.0 g/dL (07/10/23 7:07 AM) 33.4 g/dL (07/09/23 7:00 AM) Sodium Level [136-145 mmol/L] 139 mmol/L (07/11/23 7:07 AM) 139 mmol/L (07/10/23 12:37 PM) 139 mmol/L (07/10/23 7:07 AM) UA RBC [0-2] 0-2 (07/08/23 7:48 PM) UA Leuk Est Negative (07/08/23 7:48 PM) UA Nitrite Negative (07/08/23 7:48 PM) UA Glucose [Negative] Negative (07/08/23 7:48 PM) Hct [37.0-47.0 %] 31.1 % *LOW* (07/11/23 7:07 AM) 30.3 % *LOW* (07/10/23 7: AM) 30.8 % *LOW* (07/09/23 7:00 AM) UA Bacteria Rare /HPF (07/08/23 7:48 PM) Calcium Level [8.5-10.1 mg/dL] 8.8 mg/dL (07/11/23 7:07 AM) 8.4 mg/dL *LOW* (07/10/23 12:37 PM) 7.8 mg/dL *LOW* (07/10/23 7:07 AM) Phosphorus Level [2.6-4.7 mg/dL] 5.9 mg/dL *HI* (07/11/23 7:07 AM) 8.8 mg/dL *HI* (07/10/23 7:07 AM) 13.0 mg/dL *HI* (07/09/23 7:00 AM) Albumin Level [3.4-5.0 g/dL] 4.2 g/dL (07/08/23 9:03 PM) 4.5 g/dL (07/08/23 7:23 PM) Protein Total [6.4-8.2 g/dL] 9.1 g/dL *HI* (07/08/23 7:23 PM) UA Protein Trace *ABN* (07/08/23 7:48 PM) MCH [26.0-32.0 pg] 30.6 pg (07/11/23 7:07 AM) 29.8 pg (07/10/23 7:07 AM) 30.7 pg (07/09/23 7:00 AM) Magnesium Level [1.8-2.4 mg/dL] 2.0 mg/dL (07/11/23 7:07 AM) 2.1 mg/dL (07/10/23 7:07 AM) 2.7 mg/dL *HI* (07/09/23 7:00 AM) Neutro Absolute 4.1 x10^3/mcL *NA* (07/11/23 7:07 AM) 3.5 x10^3/mcL *NA* (07/10/23 7:07 AM) 4.1 x10^3/mcL *NA* (07/09/23 7:00 AM) Bilirubin Total [0.2-1.0 mg/dL] 0.5 mg/dL (07/08/23 7:23 PM) Hgb [12.0-16.0 g/dL] 10.2 g/dL *LOW* (07/11/23 7:07 AM) 9.7 g/dL *LOW* (07/10/23 7: AM) 10.3 g/dL *LOW* (07/09/23 7:00 AM) Alk Phos [46-146 unit/L] 194 unit/L *HI* (07/08/23 7:23 PM) LDH [81-234 unit/L] 162 unit/L (07/08/23 7:23 PM) UA Blood Trace *ABN* (07/08/23 7:48 PM) UA Mucous None Seen /HPF (07/08/23 7:48 PM) UA Spec Grav 1.015 *NA* (07/08/23 7:48 PM) Platelets [130-450 x10^3/mcL] 200 x10^3/mcL (07/11/23 7:07 AM) 211 x10^3/mcL (07/10/23 7:07 AM) 238 x10^3/mcL (07/09/23 7:00 AM) CO2 [21-32 mmol/L] 24 mmol/L (07/11/23 7:07 AM) 22 mmol/L (07/10/23 12:37 PM) 20 mmol/L *LOW* (07/10/23 7:07 AM) Lactic Acid Lvl [0.7-2.0 mmol/L] 1.6 mmol/L (07/08/23:23 PM) UA Squam Epithelial [None Seen] Rare (07/08/23 7:48 PM) UA pH 5.0 *NA* (07/08/23 7:48 PM) eGFR Non-AA [>=60] 34 *LOW* (07/11/23 7:07 AM) 27 *LOW* (07/10/23 12:37 PM) 23 *LOW* (07/10/23 7:07 AM) eGFR AA [>=60] 34 *LOW* (07/11/23 7:07 AM) 27 *LOW* (07/10/23 12:37 PM) 23 *LOW* (07/10/23 7:07 AM) UA Appear Clear (07/08/23:48 PM) Chloride Level [98-107 mmol/L] 103 mmol/L (07/11/23 7:07 AM) 101 mmol/L (07/10/23 12:37 PM) 101 mmol/L (07/10/23 7:07 AM) Procalcitonin [0.00-0.50 ng/mL] 1.27 ng/mL *HI* (07/08/23:23 PM) RDW-CV [11.5-14.5 %] 14.1 % (07/11/23:07 AM) 14.4 % (07/10/23 7:07 AM) 14.5 % (07/09/23 7:00 AM) Imm Gran Auto [0.0-0.9 %] 0.4 % (07/11/23: AM) 0.1 % (07/10/23: AM) 0.2 % (07/09/23 7:00 AM) Slide Review Not Indicated (07/08/23:23 PM) UA Culture Ind?. Not Applicable (07/08/23 7:48 PM) Creatinine Level [0.55-1.02 mg/dL] 2.02 mg/dL *HI* (07/11/23 7:07 AM) 2.45 mg/dL *HI* (07/10/23 12:37 PM) 2.84 mg/dL *HI* (07/10/23 7:07 AM) SARS-CoV-2 (COVID-19) RNA (ID Now) [Not Detected] Not Detected (07/08/23 9:28 PM) Haptoglobin [facility] [32-197 mg/dL] 367 mg/dL 1 *HI* (07/08/23 7:23 PM) Eos, Auto [1.0-6.0 %] 4.0 % (07/11/23 7:07 AM) 3.7 % (07/10/23 7:07 AM) 3.7 % (07/09/23 7:00 AM) U hCG Ql Negative (07/08/23 7:52 PM) 1Result Comment: Test performed or referred by The [address] [address] Vital Signs Most recent to oldest [Reference Range]: 1 2 3 Temperature Temporal Artery [36-38 Deg C] 37.2 Deg C (07/11/23 7:16 AM) 36.5 Deg C (07/11/23 4:05 AM) 35.8 Deg C *LOW* (07/11/23 12:15 AM) Temperature Temporal Artery (DegF) [97.3-100 Deg F] 98.42 Deg F (07/08/23 6:47 PM) Peripheral Pulse Rate [60-100 bpm] 98 bpm (07/11/23 4:05 AM) 92 bpm (07/11/23 12:15 AM) 98 bpm (07/10/23 8:14 PM) Heart Rate Monitored [60-100 bpm] 95 bpm (07/11/23 7:14 AM) Respiratory Rate [12-24 br/min] 18 br/min (07/11/23 7:14 AM) 20 br/min (07/11/23 12:15 AM) 22 br/min (07/10/23 8:14 PM) Blood Pressure [90-140/60-90 mmHg] 108/59mmHg (07/11/23 4:05 AM) 102/68mmHg (07/11/23 12:15 AM) 108/78mmHg (07/10/23 8:14 PM) Mean Arterial Pressure, Cuff [65-140 mmHg] 76 mmHg (07/09/23 8:35 PM) 81 mmHg (07/08/23 8:34 PM) 71 mmHg (07/08/23 7:48 PM) Mean Arterial Pressure Cuff 74 mmHg (07/11/23 4:05 AM) 78 mmHg (07/11/23 12:15 AM) 88 mmHg (07/10/23 8:14 PM) Blood Pressure Location Left arm (07/11/23 12:15 AM) Left arm (07/10/23 8:14 PM) Left arm (07/10/23 4:59 AM) Blood Pressure Method Automatic (07/11/23 12:15 AM) Automatic (07/10/23 8:14 PM) Automatic (07/10/23 12:22 AM) Weight 129.3 kg (07/08/23 10:02 PM) Weight Dosing 131.00 kg (07/08/23 6:54 PM) Weight Estimated 131.00 kg (07/08/23 6:47 PM) Height/Length Dosing 149.000 cm (07/08/23 6:54 PM) Height/Length Estimated 149.000 cm (07/08/23 6:47 PM) Social History Social History Type Response Tobacco Never tobacco user T obacco Use:. Sex Female Hospital Discharge Instructions Patient Education 07/11/2023 07:58:41 Acute Kidney Injury, Adult Acute Kidney Injury, Adult Acute kidney injury is a sudden worsening of kidney function. The kidneys are a pair of organs thatdo many important jobs in the body, including: ??? Make urine. ??? Make hormones. ??? Keep the right amount of fluids and chemicals in the body. This condition ranges from mild to severe. Over time, it may develop into long- lasting (chronic) kidney disease. Finding it and treating it early may keep it from becoming a long-lasting disease. What are the causes? Common causes of this condition include: ??? A problem with blood flow to the kidneys. This may be caused by: ??? Low blood pressure or shock. ??? Blood loss. ??? Heart and blood vessel disease. ??? Severe aranda. ??? Liver disease. ??? Direct damage to the kidneys. This may be caused by: ??? Certain medicines. ??? A kidney infection. ??? Poisoning. ??? Being around or in contact with toxic substances. ??? A wound from surgery. ??? A hard, direct hit to the kidney area. ??? A sudden block in urine flow. This may be caused by: ??? Cancer. ??? Kidney stones. ??? An enlarged prostate. What increases the risk? Being older than age 65. ??? Being female. ??? Being in the hospital. This is especially true if you are very sick. ??? Having certain conditions, such as: ??? Long-lasting kidney or liver disease. ??? Diabetes. ??? Heart disease and heart failure. ??? Lung disease. What are the signs or symptoms? This condition may not cause symptoms until it becomes severe. Symptoms can include: ??? Feeling very tired or having trouble staying awake. ??? Nausea or vomiting. ??? Swelling (edema) of the face, legs, ankles, or feet. ??? Pain in the belly or pain along the side of your stomach (flank). ??? Urine changes, such as: ??? Making little or no urine. ??? Passing urine with a weak flow. ??? Muscle twitches and cramps, most often in the legs. ??? Confusion or trouble concentrating. ??? Not feeling the urge to eat. ??? Fever. How is this diagnosed? This condition may be diagnosed based on: ??? Your symptoms. ??? Your medical history. ??? A physical exam. You may have other tests, such as: ??? Blood tests. ??? Urine tests. ??? Imaging tests. ??? A kidney biopsy. This involves removing a sample of kidney tissue to be looked at under a microscope. How is this treated? Treatment depends on the cause and how severe the condition is. In mild cases, treatment may not beneeded. The kidneys may heal on their own. In severe cases, treatment may include: ??? Treating the cause of the kidney injury. This may mean that you have to change your medicines or the doses you take. ??? Getting fluids through an IV tube. ??? Having a small, thin tube (catheter) put in. This tube will drain urine and prevent blockages. ??? Trying to keep problems from starting. This may mean not using certain medicines or not having tests done that could cause more kidney injury. In some cases, these treatments are also needed: ??? Dialysis or continuous renal replacement therapy (CRRT). This treatment uses a machine to do the job of the kidneys. ??? Surgery. This may be done to repair a damaged kidney. It could also be done to remove a blockage in the urinary tract. Follow these instructions at home: Medicines ??? Take ozvp-tjz-eozpoju and prescription medicines only as told by your health care provider. ??? Do not take any new medicines unless approved by your health care provider. Many medicines can make kidney damage worse. ??? Do not take any vitamin or mineral supplements unless approved by your health care provider. Some of these can make kidney damage worse. Lifestyle ??? Make changes to your diet as told by your health care provider. You may need to eat less protein. ??? Get to, and stay at, a healthy weight. If you need help, ask your health care provider. ??? Start or keep up an exercise plan. Exercise at least 30 minutes a day, 5 days a week. ??? Do not smoke or use any products that contain nicotine or tobacco. If you need help quitting, ask your health care provider. General instructions ??? Keep track of your blood pressure. Tell your health care provider if you notice any changes. ??? Keep your vaccines up to date. Ask your health care provider which vaccines you need. ??? Keep all follow-up visits. Where to find more information ??? [place] [employer]: www.aakp.org ??? National Kidney Foundation: www.kidney.org ??? [employer]: www.akfinc.org ??? [employer] [place]: ??? [employer]: www.life28msec.org ??? Kidney School: www.kidneyschool.org Contact a health care provider if: ??? Your symptoms get worse. ??? You have new symptoms such as: ??? Headaches. ??? Skin that is darker or balance bridge assembler than normal. ??? Easy bruising. ??? Itchiness. ??? Hiccups. ??? Lack of menstrual periods. ??? You have a fever. Get help right away if: ??? You have symptoms of worsening kidney disease, such as: ??? Chest pain. ??? Shortness of breath. ??? Seizures. ??? Confusion or trouble thinking. ??? Belly or back pain. ??? You have pain or bleeding when you pass urine. ??? You are making little or no urine. These symptoms may be an emergency. Get help right away. Call 911. ??? Do not wait to see if the symptoms will go away. ??? Do not drive yourself to the hospital. Summary ??? Acute kidney injury is a sudden worsening of kidney function. ??? This condition can be caused by problems with blood flow to the kidneys, damage to the kidneys,or a sudden block in urine flow. ??? This condition may not cause symptoms until it becomes severe. ??? Acute kidney injury can be diagnosed with blood tests, urine tests, imaging tests, and other tests. ??? Treatment depends on the cause and how severe the condition is. This information is not intended to replace advice given to you by your health care provider. Make sure you discuss any questions you have with your health care provider. Document Revised: 08/14/2022 Document Reviewed: 07/06/2020 [employer] Patient Education ?? 2022 [employer]. 07/09/2023 15:20:01 Clostridioides Difficile Infection, [id number]-Rnmk Clostridioides Difficile Infection Clostridioides difficile infection, or C. diff, is an infection that is caused by C. diff germs (bacteria). This infection may happen after you take antibiotics that kill other germs and let C. diff germs grow. C. diff can be spread from person to person (is contagious). What are the causes? Taking certain antibiotics. ??? Coming in contact with people, food, or things that have C. diff. What increases the risk? Taking certain antibiotics for a long time. ??? Staying in a hospital or long-term care facility for a long time. ??? Being age 65 or older. ??? Having had C. diff before or been exposed to C. diff. ??? Having a weak disease-fighting system (immune system). ??? Taking medicines that treat stomach acid. ??? Having serious health problems, including: ??? Colon cancer. ??? Inflammatory bowel disease (IBD). ??? Having had a procedure or surgery on your digestive system. What are the signs or symptoms? Watery poop (diarrhea). ??? Fever. ??? Not feeling hungry. ??? Feeling like you may vomit. ??? Swelling, pain, cramps, or a tender belly. How is this treated? Treatment may include: ??? Stopping the antibiotics that caused the C. diff infection. ??? Taking antibiotics that kill C. diff. ??? Placing poop from a healthy person into your colon (fecal transplant). ??? Doing surgery to take out the infected part of the colon. Follow these instructions at home: Medicines ??? Take hpgg-boy-lgczirs and prescription medicines only as told by your doctor. ??? Take antibiotic medicine as told by your doctor. Do not stop taking it even if you start to feel better. ??? Do not take medicines to treat watery poop unless your doctor tells you to. Eating and drinking ??? Follow instructions from your doctor about what to eat and drink. This may include eating blandfoods in small amounts, such as: ??? Bananas. ??? Applesauce. ??? Rice. ??? Lean meats. ??? [place]. ??? Crackers. ??? To prevent loss of fluid in your body (dehydration): ??? Take in enough fluids to keep your pee pale yellow. This includes water, ice chips, clear fruitjuice with water added to it, or low-calorie sports drinks. ??? Take an ORS (oral rehydration solution). This drink is sold in pharmacies and retail stores. ??? Avoid milk, caffeine, and alcohol. General instructions ??? Wash your hands often with soap and water. Do this for at least 20 seconds. ??? Take a bath or shower every day. ??? Return to your normal activities when your doctor says that it is safe. ??? Keep all follow-up visits. How is this prevented? Personal hygiene ??? Wash your hands often with soap and water. Do this for at least 20 seconds. ??? Wash your hands before you cook and after you use the bathroom. ??? Other people should wash their hands too, especially: ??? People who live with you. ??? People who visit you in a hospital or clinic. Contact precautions ??? If you get watery poop while you are in the hospital or a long-term care facility, tell your doctor right away. ??? When you visit someone in the hospital or a long-term care facility, wear a gown, gloves, or other protection. ??? If possible: ??? Stay away from people who have diarrhea. ??? Use a separate bathroom if you are sick and live with other people. Clean environment ??? Keep your home clean. ??? Clean your home every day for at least a week after you leave the hospital. ??? Clean surfaces that you touch every day. Use a product that has a 10% chlorine bleach solution.Be sure to: ??? Read the label on your product to make sure that the product will kill the germs on your surfaces. ??? Clean toilets and flush handles, bathtubs, sinks, doorknobs and handles, countertops, and work surfaces. ??? If you are in the hospital, make sure the surfaces in your room are cleaned each day. Tell someone right away if body fluids have splashed or spilled. Clothes and linens ??? Wash clothes and linens using laundry soap that has chlorine bleach. Be sure to: ??? Use powder soap instead of liquid. ??? Clean your washing machine once a month. To do this, turn on the hot setting with only soap in it. Contact a doctor if: ??? Your symptoms do not get better or they get worse. ??? Your symptoms go away and then come back. ??? You have a fever. ??? You have new symptoms. Get help right away if: ??? Your belly is more tender or you have more pain. ??? Your poop is mostly bloody. ??? Your poop looks black. ??? You vomit after you eat or drink. ??? You have signs of not having enough fluids in your body. These include: ??? Dark yellow pee, very little pee, or no pee. ??? Cracked lips or dry mouth. ??? No tears when you cry. ??? Sunken eyes. ??? Feeling sleepy. ??? Feeling weak or dizzy. Summary ??? C. diff infection is an infection that may happen after you take antibiotic medicines. ??? Symptoms include watery poop, fever, not feeling hungry, or feeling like you may vomit. ??? Treatment includes stopping the antibiotics that made you sick and taking antibiotics that killthe C. diff germs. Poop from a healthy person may also be placed into your colon. ??? To prevent C. diff infectionfrom spreading, wash hands often with soap and water. Do this for at least 20 seconds. Keep your home clean. This information is not intended to replace advice given to you by your health care provider. Make sure you discuss any questions you have with your health care provider. Document Revised: 12/16/2020 Document Reviewed: 12/16/2020 [employer] Patient Education ?? 2022 [employer]. Follow Up Care 07/08/2023 18:47:51 With:Jamila Archer MD Address: [place] [address]- When:07/25/2023 09:40:00 Comments:Hospital follow up Discharge instructions * Antonietta Neil D: PERFORM Event Display: Discharge Instructions Authored Date: [id number] MARIELOS MIRAMONTES :1995 Age:28 years Sex:Female Visit Date:07/08/2023 Primary Care Physician: Jamila Archer MD Hospital Discharge Instructions We would like to thank you for allowing us to assist you with your healthcare needs. The following includes patient education materials and information regarding your injury/illness. Your Next Steps Discharge Orders Discharge Activity Restrictions, as tolerated Discharge Diet Instruction, Consistent Carbohydrate [id number] paz, diabetic Scheduled Future Appointments Sunday 4:30 PM EST ?? With: Shila Krueger Where: [facility] Medical [address] [address] Status: Confirmed Follow Up Appointments Follow Up with??Jamila Archer MD When:??07/25/2023 10:40 AM EST Why: Hospital follow up Where: [place] [address]- Future Orders Basic Metabolic Panel, Blood, Routine, 07/16/23, Once, Lab Collect, DEAN (acute kidney injury) C. difficile diarrhea, Order for future visit CBC w/o Diff, Blood, Routine, 07/16/23, Once, Lab Collect, DEAN (acute kidney injury) C. difficilediarrhea, Order for future visit Medications What How Much When Why Instructions Next Dose New vancomycin (vancomycin 125 mg oral capsule) 1 Capsules Oral (given by mouth) 4 times a day Duration: 10 Days Pickup at [facility] 07/11 @ 1200/4pm/8pm Changed bacillus coagulans-inulin (Probichew oral tablet, chewable) 1 tab Oral (given by mouth) Every day Resume home dose Changed elderberry 350 Milligrams Oral (given by mouth) Every day resume home dose Changed insulin regular (HumuLIN R KwikPen (Concentrated) 500 units/ mL subcutaneous solution) 200 Units Intradermal (in the skin) Before meals 200 before breakfast, 150 units before lunch and dinner and 50 units at bedtime. correction factor of 50 units ?? resume home dose Changed levothyroxine 250 Micrograms Oral (given by mouth) Every day 07/12 @ 7am Changed senna (senna 25 mg oral tablet) 1 tab Oral (given by mouth) Every day Resume home dose Unchanged atorvastatin (atorvastatin 40 mg oral tablet) 1 tab Oral (given by mouth) Every day 07/11 @ 5pm Unchanged cetirizine (cetirizine 10 mg oral tablet) 1 tab Oral (given by mouth) 2 times a day Resume home dose Unchanged Durable Medical Equipment for Prescription (B-D [...] instructions Use to monitor BS ?? Unchanged glucagon (Glucagon Emergency Kit for Low Blood Sugar) See instructions hypoglycemia symptoms follow instructions per kit, As needed for low blood sugar ?? as needed Unchanged insulin lispro (HumaLOG Mina KwikPen 100 units/ mL injectable solution) See instructions injects per sliding scale ?? Unchanged Other Prescription (ONETOUCH VERIO FLEX KIT) 1 each by [facility] [place]. (non drug: combo route) route 4 times daily. ?? Unchanged Other Prescription (ONETOUCH VERIO MARLENE) Test blood glucose withone new test strip 4 times daily ?? Unchanged torsemide (torsemide 20 mg oral tablet) 3 tab Oral (given by mouth) 2 times a day take 3 tablets to equal 60mg twice daily ?? Resume home dose Pharmacy Information [facility]: [address] [place] [address] [phone] ?? What How Much When Comments Stop Taking chlorthalidone (chlorthalidone 25 mg oral tablet) 1 tab Oral (given by mouth) Every day Stop Taking lisinopril (lisinopril 5 mg oral tablet) 1 tab Oral (given by mouth) Every day Your Summary Your Care Team Admitting Physician - Mahesh Pena NP Attending Physician - Maurisio Simmons DO Primary Care Physician - Jamila Archer MD Your Diagnosis DEAN (acute kidney injury) C. difficile diarrhea Type 1 diabetes HTN (hypertension) HLD (hyperlipidemia) HOLLIE treated with BiPAP Hypothyroidism Morbid obesity Pulmonary hypertension Hypermagnesemia Aortic stenosis Peripheral edema Hyperphosphatemia Discharge Vitals Temperature??(Temporal Artery) 99.0 ??F (37.2 ??C) Heart Rate??(Monitored) 95 Respiratory Rate?? 18 Blood Pressure?? 108/59?? Allergies rOPINIRole morphine Patient/Senior Materials Planner Signature Patient Name:MONSERRAT MIRAMONTESLUIS Rangel I have received this information and my questions have been answered. Patient/Senior Materials Planner Name: Patient/Senior Materials Planner Signature: Relationship to Patient: Witness Name/Signature: Date: Electronically Signed on: 07/11/2023 08:51 EDTSigned by:ELOISE corridor redevelopment manager Note * Antonietta Neil D: PERFORM Event Display: Case Management Note Authored Date: [id number] Discharge instructions/education on kidney injury and C. difficile reviewed with patient at bedside. Patient engaged in education and able to verbalize teach back of reviewed material. Patient is aware of 1 new medication for pickup schedule and indication reviewed prior authorization done and complete and has been approved [facility] reports medication is ready for pickup. Patient requesting assistance with completion of food stamps application- this was printed and provided to patient. Patient reports she is unable to do this independently and asked for assistance financial navigators were notified Mark Bajwa came and sat with patient to complete this application. Patient then asked for assistance with completion of disability application this author explained to patient that the director of casework services are unable to help her with this at this time. Patient plans to ask chronic healthcare recruiter Shila Carrizales at her upcoming appointment on 07/18 for assistance with this application. No home health services ordered upon discharge. Patient has home insulin at [facility] that needs to be returned to her prio r to departure. SWEEPER DRIVER aware that IV needs to be removed prior to departure. Patient denies any personal belongings in the safe [facility]. Contact information provided. Work note provided. * Miranda Gore: PERFORM Event Display: Case Management Note Authored Date: [id number] Interqual criteria for acute LOC met EKG study * Event Display: Telemetry Strips Please click on link to view image. * Event Display: Telemetry Strips Please click on link to view image. * Event Display: Telemetry Strips Please click on link to view image. Pharmacology Progress note * Andria Sirvastava PharmD: PERFORM Event Display: Pharmacy Progress Note Authored Date: Pharmacy Progress Note Med history updated with the patient and Xi in [place] Electronically Signed on 07/09/23 12:24 PM Andria Srivastava PharmD Respiratory therapy Hospital Progress note * Rosy Ball: PERFORM Event Display: Respiratory Therapy Progress Note Authored Date: [id number] ??NIKUNJSANTA MARIELOS M 28 Years MEASURED Body Mass Index: 67.56 kg/m2 (12/31/22 03:07:00) BSA Measured: 2.29 m2 (11/03/22 09:13:00) Height: 149 cm (12/31/22 03:07:00) Weight: 129.3 kg (07/08/23 22:02:00) DOSING Height/Length Dosin cm (07/08/23 18:54:01) Weight Dosin kg (07/08/23 18:54:02) Respiratory Shift Summary Breath Sounds: Diminished bases ??Patient alert and oriented in NAD Respiratory Protocol??Aerosol Therapy Assessment and Scoring Home [...] - No Therapy indicated Electronically Signed on 07/11/23 07:39 AM Rosy Ball * Rosa Mora R: PERFORM Event Display: Respiratory Therapy Progress Note Authored Date: [id number] ??MARIELOS MIRAMONTES 28 Years Breath Sounds: 1059: diminished Shift Events: 1059: Received pt on RA sating 98%, HR 95, RR 20 equal and nonlabored. Pt just getting out of bathroom on RT arrival, pt seems to be SOB but once she sat down after the SOB subsided. Pt in no acute respiratory distress at this time. Respiratory Aerosol Therapy Assessment and Scoring Home Medication Routine: none Lung History (0) No Lung History and [...] second breath hold? Yes Respiratory total score: 4 Respiratory Guidelines 3-4 pts - Q6 PRN for SOB Electronically Signed on 07/09/23 11:13 AM Rosa Mora * Oneal Pérez: PERFORM Event Display: Respiratory Therapy Progress Note Authored Date: [id number] ??MARIELOS MIRAMONTES 28 Years MEASURED Body Mass Index: 67.56 kg/m2 (04/23/23 03:07:00) BSA Measured: 2.29 m2 (11/03/22 09:13:00) Height: 149 cm (12/31/22 03:07:00) Weight: 129.3 kg (07/08/23 22:02:00) DOSING Height/Length Dosin cm (07/08/23 18:54:01) Weight Dosin kg (07/08/23 18:54:02) Respiratory Shift Summary Breath Sounds: Diminished Shift Treatments: None Shift Events: Home Unit BiPAP Respiratory Protocol??Aerosol Therapy Assessment and Scoring Home Medication Routine: None Lung History (0) No Lung History and [...] Q6 PRN for SOB Electronically Signed on 07/08/23 10:25 PM Oneal Pérez Physician Emergency department Note * Matt Mccord MD: PERFORM Event Display: ED Note Physician Authored Date: [id number] MARIELOS MIRAMONTES :1995 Age:28 years Sex:Female Visit Date:07/08/2023 Primary Care Physician: Jamila Archer MD HPI 28-year-old morbidly obese female with a history of constipation, developmental disorder, diarrhea,HLD, HTN, CKD, HOLLIE, pulmonary HTN, DM I presents for evaluation of 4 days of frequent loose watery stools and report of blood in her stool.?? * Character: Reports bright red blood mixed throughout the stool for 4 days, no mucus, no pus. * Frequency: 4-5 x day. * Duration: 4 days * Denies:??Notes amoxicillin x 7 days (06/29-) for treatment of an ear infection. Denies further??recent antibiotics, fresh or salt water exposure, recent hospitalization, travel, drinking untreated water, history of c. difficile. * Fever/chills/rigors: Denies fevers, notes subjective chills. * HIV or immunocompromise: denies. * Cough: denies. * - denies consuming any of the following: ??* Hot dogs, lunch meats, or cold cuts served cold or heated to less than 165 degrees ??* Refrigerated p??t?and meat spreads ??* Refrigerated smoked seafood ??* Raw (unpasteurized) milk ??* Unpasteurized soft cheeses, such as feta, queso nicholas, Brie, and blue- veined cheeses; and ??* Unwashed raw produce. ?? Pending stool studies (07/07/2023): Giardia, Cryptosporidium, occult blood negative M/S/F/SocHx notable for: please see HPI; remainder reviewed with patient and in chart.? ROS: Negative constitutional, eye, cardiovascular, pulmonary, GI, , MSK, skin, neurologic, psychiatric, endocrine unless noted in the HPI. ?? Exam HR 98, RR 24, BP 94/59, T 36.9?C, SaO2 98% on room air. Gen:??Pleasant, non-toxic appearing, resting comfortably. HEENT: NC, AT, PEERL, EOMI, neck supple with full range of movement. Resp: Clear to auscultation bilaterally, normal work of breathing, no accessory muscle usage. Card: Regular rate and rhythm with no murmurs, rubs, or gallops, extremities warm and well perfused.?? GI: Non-tender to palpation throughout all quadrants, non-distended, no rebound or guarding. : No suprapubic tenderness to palpation.No CVA tenderness to percussion bilaterally.Deferred MSK: No visible deformities, strength and tone without visually appreciable deficit. Skin: Normal color with no visible lesions. Neuro: alert and oriented?3, no facial asymmetry, vision and hearing WNL. Psych: Mood and affect appropriate. ?? Labs WBC 9.6, Hb 12.3, platelets 289, Na 131, K 4.6, creatinine 5.02, AST 29, ALT 53, ALP 194, total bilirubin 0.5, lactic acid 1.6, procalcitonin 1.27, hCG negative. UA - rare bacteria, rare squamous epithelial cells, 0-2 RBCs, 0-3 WBCs, negative nitrate, negative leukocyte esterase, trace blood. ?? C. difficile, haptoglobin, LDH pending ?? MDM Previous chart, nursing note, and vitals reviewed.?? A:??28-year-old morbidly obese female with a history of constipation, developmental disorder, diarrhea, HLD, HTN, CKD, HOLLIE, pulmonary HTN, DM I presents for evaluation of 4 days of frequent loose watery stools and report of blood in her stool.? DDx: viral (enteritis, gastroenteritis 2/2 norovirus, influenza, COVID-19, NOS), bacterial gastroenteritis, food poisoning, C. Difficile, dehydration, electrolyte abnormalities, septicemia/bacteremia, DKA, acute appendicitis, inflammatory (Crohn???s vs ulcerative colitis). ?? Evaluation: While the patient reported bloody stools, review of the patient's stool sample 07/07/2023 was without evidence of blood, as such the degree of blood is unclear. However the patient is overall well-appearing with an entirely benign abdominal exam and clinical appearance. There patient iswithout appreciable anemia, platelets are within the patient's historical range, and the patient iswithout elevations in liver enzymes??or bilirubin and the patient is without appreciable hematuria or casts. As such strongly doubt E. coli 0157:H7 and/or Shiga toxin. Procalcitonin is mildly elevated, however the relevance of this is unclear at the present time. Given the patient's recent antibiotics, it is felt to be most likely that the patient has antibiotic is due to his diarrhea with a secondary acute kidney injury. The patient was given 2 L NS in the emergency department and admitted forIV fluids and further evaluation. Also pending at the time of admission is C. difficile, have to globulin, and LDH (the latter two to further evaluate with respect to a possible HUS). Based upon the p atient's history and exam as well as the above laboratory studies, there is no clear evidence of bacteremia/septicemia or a clinically significant, intra- abdominal surgical process. ?? Impression: Diarrhea, acute kidney injury. ?? (please reference below for remainder of encounter information) Critical Care Time Organ system(s): Renal?? Intervention: Assessment of the patient, interpretation of studies, communication related to patient care. Time: 30 minutes were spent directly related to patient care exclusive of separately billed procedures Electronically Signed on 07/08/23 09:12 PM Matt Mccord MD Progress note * Hortensia Nieto MD: PERFORM Event Display: Progress Note - Physician Authored Date: [id number] MARIELOS MIRAMONTES :1995 Age:28 years Sex:Female Visit Date:07/08/2023 Primary Care Physician: Jamila Archer MD Subjective The patient is being seen examined as a follow-up for??C. difficile colitis, DEAN, hyperkalemia now,diarrhea, insulin-dependent type 1 diabetes mellitus, hypertension, hyperlipidemia,??obstructive sleep apnea, hypothyroidism, morbid obesity, pulmonary hypertension.?? Patient was hypoglycemic yesterday was placed on D5 drip and now hyperglycemic.?? Diarrhea is improving but still having 3 episodesof loose stools today. ??DEAN is improving but creatinine still 2.8 and not at baseline.?? Blood pressures have also been borderline hypotensive. ??No acute events overnight. Review of Systems Constitutional:?No??fevers,?Positive for??chills,?No??sweats Eye:?No??recent visual problems ENT:?No??ear pain,?No??nasal congestion,?No??sore throat Respiratory:?No??shortness of breath,?No??cough Cardiovascular:?No??Chest pain,?No??palpitations,?No??syncope Gastrointestinal:?Nonausea,?No??vomiting,?Positive for??diarrhea Genitourinary:?No??hematuria?? Kamran/Lymph:?No??bruising tendency,?No??swollen lymph glands Endocrine:?No??excessive thirst,??No??excessive hunger Musculoskeletal:??No??back pain,??No??neck pain,??No??joint pain,??No??muscle pain,??No??decreased range of motion Integumentary:?No??rash,?No??pruritus,?No??abrasions Neurologic:??Alert & oriented X 4 Psychiatric:?No??anxiety,?No??depression Objective Vitals & Measurements T:??36.8?C ??(Temporal Artery)?? TMIN:??36.2?C ??(Temporal Artery)?? TMAX:??36.9?C ??(Temporal Artery)?? HR:??93??(Peripheral)?? RR:??20?? BP:??92/66?? SpO2:??99%?? Pain Score:??0?? O2 Therapy:??Room air?? Physical Exam General:??Alert and oriented, morbidly obese 28-year-old female no??acute distress Eye:??PERRL, EOMI,?Normal?conjunctiva HENT:??Normocephalic, normal?hearing, moist oral mucosa,?No??scleral icterus,?No??sinus tenderness Neck:??Supple, non-tender,?No??carotid bruits,?No??JVD,?No??lymphadenopathy Lungs:??Clear to auscultation and percussion,?Non-labored?respiration Heart:?Normal?rate,?Regular??rhythm,?No??murmur,?No??gallop,?No??edema Abdomen:??Soft, non-tender, non-distended,?Normal?bowel sounds,?No??masses Musculoskeletal:?Normal?range of motion and strength,?No??tenderness,?No??swelling Skin:??Skin is warm, dry and pink,?No??rashes,?No??lesions Neurologic:??Awake, alert and oriented X4, CN II-XII??grossly??intact Psychiatric:??Cooperative, appropriate mood and affect Assessment/Plan 1.??DEAN (acute kidney injury)??N17.9 DEAN likely related to severe C. difficile colitis??with creatinine of 5??which is improving but still not at baseline. ??Monitor renal function, urinary output and electrolytes. ??Avoid nephrotoxic medications.?? Stopping D5 drip and starting lactated Ringer's at 125 mL/h.?? Patient with hyperkalemia also??at this time likely related to hyperglycemia??and DEAN.?? We will hold off on Lokelma as patient is already having diarrhea due to C. difficile. ??Continue with insulin??coverage. ??Recheck potassium??in the afternoon.?? Anticipate??improvement and possible discharge tomorrow. 2.??C. difficile diarrhea??A04.72 Severe C. difficile colitis as creatinine is greater than 1.5. ??As this is the first occurrence wewill continue p.o. vancomycin 125 mg p.o. 4 times daily. 3.??Type 1 diabetes??E10.9 Hypoglycemic and now hyperglycemic after D5 infusion which has now been discontinued.?? Continue U-500 insulin.?? Chemstrips AC plus at bedtime.?? Diabetic diet. 4.??HTN (hypertension)??I10 Holding??torsemide??and chlorthalidone??due to borderline hypotension. 5.??HLD (hyperlipidemia)??E78.5 Continue atorvastatin 40 mg p.o. daily.?? Continue BiPAP at night. 6.??HOLLIE treated with BiPAP??G47.33 7.??Hypothyroidism??E03.9 Continue levothyroxine??250 mg p.o. daily. 8.??Morbid obesity??E66.01 Lifestyle modifications and weight loss??with BMI of 67. 9.??Pulmonary hypertension??I27.20 Pulmonary hypertension likely related to obesity and obstructive sleep apnea. 10.??Hypermagnesemia??E83.41 11.??Aortic stenosis??I35.0 12.??Peripheral edema??R60.9 13.??Hyperphosphatemia??E83.39 Orders: Lactated Ringers Injection 1,000 mL, Total Volume (mL): 1,000, 1,000 mL, Soln- IV, IV, 125 mL/hr, Start Date: 07/10/23 8:25:00 EDT, 131 kg, Populate Charting Weight From Order, 2.33, m2 Electronically Signed on 07/10/23 09:59 AM Hortensia Nieto MD * Maurisio Simmons DO: MODIFY, PERFORM Event Display: Progress Note - Physician Authored Date: [id number] SAUL MIRAMONTESA Juan Carlos :1995 Age:28 years Sex:Female Visit Date:07/08/2023 Primary Care Physician: Jamila Archer MD Subjective 28-year-old woman??with a history of??diabetes type 1,??hypertension, hyperlipidemia,??morbid obesity,??HOLLIE??on BiPAP,??hypothyroidism,??chronic??kidney disease,??pulmonary hypertension,??and tensionheadaches??who presents with a complaint of??dizziness and diarrhea??with??blood in her stool. ?? Occult blood??on admission was negative. ?? She does have??acute??kidney injury??and evidence of dehydration. ?? She reports having felt somewhat better when she was first given??fluids??and she is getting IV fluids continuously. ?? Her second??creatinine in the emergency department after fluid was somewhat better than the first. ?? Today's labs are pending. ?? She does??have type 1 diabetes on her problem list??but clearly has??insulin resistance as well. ?? She does complain of a headache this morning. Review of Systems Headache is most prominent.?? Denies chest pain, dyspnea, palpitations, dizziness, headaches, sudden visual changes, cough, or new peripheral edema. Objective Vitals & Measurements T:??36.8?C ??(Temporal Artery)?? TMIN:??36.1?C ??(Temporal Artery)?? TMAX:??36.9?C ??(Temporal Artery)?? HR:??91??(Peripheral)?? RR:??18?? BP:??96/46?? SpO2:??97%?? HT:??149.000??cm?? WT:??129.3??kg?? Pain Score:??5?? O2 Therapy:??Room air?? Physical Exam General: Alert and oriented woman who appears stated age in no acute distress; ??apparent full command of cognitive faculties;??morbidly obese HEENT: Normocephalic; normal facial movements; extraocular muscle movements apparently normal; necksupple without adenopathy; no evidence of thyromegaly or nodularity Cardiovascular: S1-S2; ??no noted rubs or gallops Pulmonary: Good air movement bilaterally with no wheezes, rales or rhonchi Abdomen: Soft, nontender with no guarding; no organomegaly; nondistended; obese Skin: Warm and dry; no rashes Neurological: Moves all extremities; no focal deficits; cranial nerves 3, 4, 6, 7, 8, 11, and 12 within normal limits Musculoskeletal: No obvious??edema; no obvious arthropathy Psych: normal affect; no abnormal thoughts or hallucinations evident.?? Assessment/Plan 1.??DEAN (acute kidney injury)??N17.9 Creatinine was up to 5 and this seems consistent with dehydration. ?? We will follow labs as we??give her IV??fluid resuscitation. ?? Will correct??electrolytes as needed. ?? Hold her torsemide, chlorthalidone, and lisinopril. 2.??Diarrhea??R19.7 She reports not having had diarrhea overnight and hopefully this is slowing. ?? C. difficile testing is pending. [C. difficile test was positive-I have started her on oral vancomycin] ?? Procalcitonin was??elevated. ?? She reports some pain when she moves her bowels but otherwise??her abdomen??is nontender. 3.??Type 1 diabetes??E10.9 She does take a lot of insulin??but has type 1 diabetes on her problem list. ?? She certainly has a degree of insulin??resistance as well. ?? Anion gap is 11. 4.??HTN (hypertension)??I10 Blood pressure is on the low end. ?? We will hold her antihypertensives and her diuretic. 5.??HLD (hyperlipidemia)??E78.5 Continue her atorvastatin. 6.??HOLLIE treated with BiPAP??G47.33 BiPAP at night. 7.??Hypothyroidism??E03.9 Continue her usual dose of levothyroxine. 8.??Morbid obesity??E66.01 Complicates care. ??She has a short stature 9.??Pulmonary hypertension??I27.20 Echocardiogram done in November 2022 showed PA pressures of 45 mmHg. ?? Ejection fraction was normal. 10.??Hypermagnesemia??E83.41 Cause??of of her elevated??magnesium??is not clear. ??She may have been taking a supplement. ??I donot see that on her home medication list.?? We will not give her magnesium here and will follow hermagnesium levels. 11.??Aortic stenosis??I35.0 Aortic valve area of 2.1 cm?by echo in November 2022.?? This accounts for her??heart murmur. 12.??Peripheral edema??R60.9 She has been seen by cardiology for chest pain and??reportedly takes??torsemide 60 mg twice a day for peripheral edema. ?? We will hold this??for now. 13.??Hyperphosphatemia??E83.39 Expect this will improve with her??kidney function. Orders: acetaminophen, 1,000 mg = 100 mL, IV Piggyback, Soln-IV, every 6 hr for 3 days, PRN headache, Administer over: 15 minutes, First Dose: 07/09/23 7:17:00 EDT, Stop Date: 07/12/23 7:16:00 EDT, PhysicianStop, Routine, 400 mL/hr HumuLIN R KwikPen (Concentrated) 500 units/mL subcutaneous solution, see instructions, Intradermal,As Directed, First Dose: 07/09/23 8:23:00 EDT, Routine Disposition:??Likely??1-2 more days of??acute hospitalization??but this will depend on??her response to therapy. Electronically Signed on 07/09/23 08:54 AM Maurisio Simmons DO Electronically Signed on 07/09/23 03:10 PM Maurisio Simmons DO History and physical note * Mahesh Pena DRILLER HAND: PERFORM Event Display: History and Physical Authored Date: [id number] MARIELOS MIRAMONTES :1995 Age:28 years Sex:Female Visit Date:07/08/2023 Primary Care Physician: Jamila Archer MD Chief Complaint Vertigo, diarrhea, BRB in stool, x5 days seen by PCP 4 times. Started on abx for ear infection. Reports feeling abnormally cold. Generalized, Abd pain with PO intake. Nausea w/ head movement, no vimiting. History of Present Illness Is a 28-year-old female patient who is morbidly obese and has poorly controlled diabetes.?? She presents to the emergency department today with complaints of??diarrhea and weakness stating she had bright red blood??in her stool.?? She has been seen 4 times over the last several days by her primary care provider. ??Occult??blood was negative yesterday. ??Her hemoglobin remains in normal limits.?? However she does have uncontrolled diabetes and is found with an DEAN with a creatinine of??5.02 and a BUN of??167.?? Was found to be 176. ??CO2 is within normal limits with no signs of acidosis noted.?? Her of her medical history significant for hypertension, hyperlipidemia, hypothyroidism, obstructi ve sleep apnea for which she uses home BiPAP. ??Patient does use U-500 insulin to control her diabetes??and will likely need to use her own supply of this while in the hospital.?? States she was recently treated for urinary tract infection with antibiotics. ??White blood cell count today is 4.5 which is??at baseline for this patient.?? Test was ordered in the emergency department and is pending??although is less likely due to the lack of white blood cell count and pain associated with the diarrhea.?? Dates her pain is minimal to moderate at this time.?? He also complains of vertigo stating that she becomes more nauseated with her head movement. ??She has not had any vomiting. ??Denies fever, chills,??chest pain, shortness of breath.?? States she feels weak but not dizzy and denies changesin urinary habits. ??Case was discussed at length with the ER provider prior to admission. ??She will be admitted as an inpatient with??acute kidney injury that will require constant IV fluid administration as well as close monitoring of her metabolic profile to look for improvement of her renal function. ??We will also closely monitor the patient's sugar and keep her diabetes under control with her supply of U-500 insulin.?? Trend??blood counts and metabolic profile daily.?? If no improvement in renal function a nephrology consult will be considered. Review of Systems Constitutional: ??No fevers, ??No chills, ??No sweats Eye: ??No recent visual problems ENT: ??No ear pain, ??No nasal congestion, ??No sore throat Respiratory: ??No shortness of breath, ??No cough Cardiovascular: ??No Chest pain, ??No palpitations, ??No syncope Gastrointestinal: ??Nonausea, ??No vomiting,??positive for diarrhea Genitourinary: ??No hematuria Kamran/Lymph: ??No bruising tendency, ??No swollen lymph glands Endocrine: ??No excessive thirst, No excessive hunger Musculoskeletal: No back pain, No neck pain, No joint pain, No muscle pain, No decreased range of motion Integumentary: ??No rash, ??No pruritus, ??No abrasions Neurologic: Alert & oriented X 4 Psychiatric: ??No anxiety, ??No depression Physical Exam Vitals & Measurements T:??36.3?C ??(Temporal Artery)?? TMIN:??36.3?C ??(Temporal Artery)?? TMAX:??36.9?C ??(Temporal Artery)?? HR:??99??(Peripheral)?? RR:??22?? BP:??101/48?? SpO2:??100%?? HT:??149.000??cm?? WT:??129.3??kg?? O2 Therapy:??Room air?? General: Alert and oriented, well nourished,??morbidly obese, no acute distress. Eye: PERRL, EOMI, normal [...] Psychiatric: Cooperative, appropriate mood and affect. Assessment/Plan 1.??DEAN (acute kidney injury)??N17.9 -??Admit as an inpatient -Avoid nephrotoxic medications -Normal saline at 150 cc/h-- -Tylenol for fever or headache, Zofran for nausea and vomiting -??heparin 5000 units subcu 3 times per day for DVT prophylaxis -Hold torsemide at this point -CBC, BMP, mag, Phos in the morning Ordered: PSO Admit to Inpatient, Semi-Private Telemetry, Inpatient, Ladanraven Maurisio Geovanny KING, 07/08/23 21:15:00 EDT, 07/08/23 21:15:00 EDT, 07/08/23 21:15:00 EDT, 2 midnights or more ?? 2.??Diarrhea??R19.7 -??C. difficile pending Hydrate with normal saline at 150 cc/h -Metabolic profile daily Ordered: PSO Admit to Inpatient, Semi-Private Telemetry, Inpatient, Ladanraven Maurisio Geovanny KING, 07/08/23 21:15:00 EDT, 07/08/23 21:15:00 EDT, 07/08/23 21:15:00 EDT, 2 midnights or more ?? 3.??Diabetes type I??E10.9 -??Carb controlled heart healthy diet -Q. ACHS blood sugar checks with U-500 sliding scale per home orders ?? 4.??HTN (hypertension)??I10 -??Blood pressure currently under control. -Monitor vital signs closely. -Continue home medications. ?? 5.??HLD (hyperlipidemia)??E78.5 -??Continue statins ?? 6.??Morbid obesity due to excess calories??E66.01 -??Counseled on weight reduction ?? 7.??HOLLIE treated with BiPAP??G47.33 -??Continue BiPAP per home settings using home equipment ?? Orders: acetaminophen, 650 mg = 2 tab, Oral, Tab, every 6 hr, PRN pain, mild, First Dose: 07/08/23 21:52:00EDT, Routine acetaminophen, 1,000 mg = 2 tab, Oral, Tab, every 6 hr, PRN fever, First Dose: 07/08/23 21:52:00 EDT, Routine Mylanta, 15 mL, Oral, Susp, every 6 hr, PRN dyspepsia, First Dose: 07/08/23 21:52:00 EDT, Routine atorvastatin, 40 mg = 1 tab, Oral, Tab, Daily, First Dose: 07/08/23 21:28:00 EDT, STAT chlorthalidone, 25 mg = 1 tab, Oral, Tab, Daily, First Dose: 07/09/23 9:00:00 EDT, Routine GlucaGen, 1 mg = 3 mL, IM, Powder-Inj, As Directed, PRN low blood sugar, First Dose: 07/08/23 21:52:00 EDT, Routine glucose 40% oral gel, 15 g = 37.5 mL, Oral, Gel, As Directed, PRN low blood sugar, First Dose: 07/08/23 21:52:00 EDT, Routine glucose 40% oral gel, 30 g = 75 mL, Oral, Gel, As Directed, PRN low blood sugar, First Dose: 07/08/23 21:52:00 EDT, Routine Dextrose 50% intravenous solution, 25 mL, IV Push, Soln, As Directed, PRN low blood sugar, First Dose: 07/08/23 21:52:00 EDT, Routine Dextrose 50% intravenous solution, 50 mL, IV Push, Soln, As Directed, PRN low blood sugar, First Dose: 07/08/23 21:52:00 EDT, Routine heparin, 5,000 units = 1 mL, Subcutaneous, Soln, every 8 hr, First Dose: 07/08/23 21:52:00 EDT, NOW insulin lispro (HumaLog) correction- sensitive, Sensitive Scale, Subcutaneous, Soln, QID(ACHS), First Dose: 07/09/23 7:30:00 EDT, Routine levothyroxine, 250 mcg, Oral, Powder-Inj, Daily, First Dose: 07/09/23 6:00:00 EDT, Routine lidocaine 1% injectable solution, 1 mg 0.1 mL, Intradermal, Soln, As Directed, PRN other (see comment), First Dose: 07/08/23 21:52:00 EDT, Routine lisinopril, 5 mg = 1 tab, Oral, Tab, Daily, First Dose: 07/09/23 9:00:00 EDT, Routine loratadine, 10 mg = 1 tab, Oral, Tab, Daily, First Dose: 07/09/23 9:00:00 EDT, Routine ondansetron, 4 mg = 2 mL, IV Push, Soln, every 6 hr, PRN nausea/vomiting, First Dose: 07/08/23 21:52:00 EDT, Routine oxyCODONE, 5 mg = 1 tab, Oral, Tab, every 6 hr, PRN pain, moderate, First Dose: 07/08/23 21:52:00 EDT, Routine saccharomyces boulardii lyo 250 mg oral capsule, 250 mg = 1 cap, Oral, Cap, BID, First Dose: 07/08/23 21:28:00 EDT, STAT senna, 8.6 mg = 1 tab, Oral, Tab, BID, PRN constipation, First Dose: 07/08/23 21:31:00 EDT, Routine Normal Saline Flush, 10 mL, IV Push, Soln, every 12 hr (rojas), First Dose: 07/09/23 9:00:00 EDT, Routine Sodium Chloride 0.9% 1,000 mL, Total Volume (mL): 1,000, 1,000 mL, Soln-IV, IV, 150 mL/hr, Start Date: 07/08/23 21:52:00 EDT, 131 kg, Populate Charting Weight From Order, 2.33, m2 Sodium Chloride 0.9% 1,000 mL, Total Volume (mL): 1,000, 1,000 mL, Soln-IV, IV, 30 mL/hr, Start Date: 07/08/23 21:52:00 EDT, 131 kg, Populate Charting Weight From Order, 2.33, m2 HumuLIN R KwikPen (Concentrated) 500 units/mL subcutaneous solution, Sliding scale per home dose, Intradermal, AC, First Dose: 07/09/23 7:30:00 EDT, Routine Ambulate as Tolerated, 07/08/23 21:52:00 EDT, PRN Basic Metabolic Panel, Blood, Routine, 07/08/23 21:52:00 EDT, every morning, for 3 days, Lab Collect Blood Glucose Monitoring POC, 07/08/23:52:00 EDT, QID(ACHS), 07/09/23 7:30:00 EDT Cardiac Monitoring, 07/08/23:52:00 EDT, Telemetry CBC w/ Diff, Blood, Routine, 07/08/23:52:00 EDT, every morning, for 3 days, Lab Collect Communication Order, 07/08/23:52:00 EDT, May use own CPAP with standard settings Communication Order, 07/08/23:52:00 EDT, Constant order, Use own supply of U- 500 insulin for daily insulin orders Diet Order, 07/08/23:52:00 EDT, Diabetic Intake and Output, 07/08/23:52:00 EDT, every 8 hrs, Constant Indicator, 07/08/23:52:00 EDT Magnesium Level, Blood, Routine, 07/08/2352:00 EDT, every morning, for 3 days, Lab Collect Notify Provider of Vital Signs, 07/08/23:52:00 EDT, SpO2 < 92% on 2L O2 NC, T > 101.5, HR > 100, HR < 50, SBP greater than 160, SBP less than 90, DBP greater than 90, DBP less than 50,Resp Rate greater than 30, Resp Rate less than 8, Constant Indicator Nursing Task, 07/08/23:52:00 EDT, Constant order Nursing Task, 07/08/23:52:00 EDT, Constant order Phosphorus Level, Blood, Routine, 07/08/2352:00 EDT, every morning, for 3 days, Lab Collect Resuscitation Status, 07/08/23:52:00 EDT, Full Code RT Eval and Treat Protocol, 10/29/23 21:52:00 EDT, Stop date 07/08/23 21:52:00 EDT, Harshil Chatman Sequential Compression Devices (SCD's), 07/08/23 21:52:00 EDT, Constant Order, Intermittent pneumatic compression, 07/08/23 21:52:00 EDT Vital Signs, 07/08/23 21:52:00 EDT, Constant order, every 4 hrs Weight, 07/08/23 21:52:00 EDT, every morning Home meds have been reviewed and reconciled within the medical record Problem List/Past Medical History Ongoing Adult health examination Autoimmune thyroiditis Bilateral lower extremity edema Constipation Developmental disorder Diabetic ketoacidosis Diarrhea Erythroderma HLD (hyperlipidemia) Hospital discharge follow-up HTN (hypertension) Hyperlipidemia Hypertensive disorder Idiopathic sleep related non-obstructive alveolar hypoventilation Intermenstrual bleeding - irregular Irregular sleep-wake pattern Kidney disease Localized edema Mediastinal adenopathy Morbid obesity Obesity Obstructive sleep apnea syndrome HOLLIE treated with BiPAP Otitis externa Otitis externa of both ears Palpitations Pulmonary hypertension Right otitis media with effusion Severe obesity Tachycardia Tension-type headache Thyroid nodule Type 1 diabetes Historical No qualifying data Procedure/Surgical History ???Due 10/2025 (10/31/2022)???ORIF - Open reduction and internal fixation of fracture (12/22/2020)???Adenoidectomy (09/10/2013)???Tonsillectomy (09/10/2003) Medications Inpatient acetaminophen, 1000 mg= 2 tab, Oral, every 6 hr, PRN acetaminophen, 650 mg= 2 tab, Oral, every 6 hr, PRN atorvastatin, 40 mg= 1 tab, Oral, Daily chlorthalidone, 25 mg= 1 tab, Oral, Daily Dextrose 50% intravenous solution, 25 mL, IV Push, As Directed, PRN Dextrose 50% intravenous solution, 50 mL, IV Push, As Directed, PRN GlucaGen, 1 mg= 3 mL, IM, As Directed, PRN glucose 40% oral gel, 15 g= 37.5 mL, Oral, As Directed, PRN glucose 40% oral gel, 30 g= 75 mL, Oral, As Directed, PRN heparin, 5000 units= 1 mL, Subcutaneous, every 8 hr HumuLIN R KwikPen (Concentrated) 500 units/mL subcutaneous solution, Sliding scale per home dose, Intradermal, AC insulin lispro (HumaLog) correction- sensitive, Sensitive Scale, Subcutaneous, QID(ACHS) levothyroxine, 250 mcg, Oral, Daily lidocaine 1% injectable solution, 1 mg= 0.1 mL, Intradermal, As Directed, PRN lisinopril, 5 mg= 1 tab, Oral, Daily loratadine, 10 mg= 1 tab, Oral, Daily Mylanta, 15 mL, Oral, every 6 hr, PRN Normal Saline Flush, 10 mL, IV Push, every 12 hr (rojas) ondansetron, 4 mg= 2 mL, IV Push, every 6 hr, PRN oxyCODONE, 5 mg= 1 tab, Oral, every 6 hr, PRN saccharomyces boulardii lyo 250 mg oral capsule, 250 mg= 1 cap, Oral, BID senna, 8.6 mg= 1 tab, Oral, BID, PRN Sodium Chloride 0.9% 1,000 mL, 1000 mL, IV Sodium Chloride 0.9% 1,000 mL, 1000 mL, IV Home atorvastatin 40 mg oral tablet, 40 mg= 1 tab, Oral, Daily B-D UF III SHORT PEN NEED MIS, See instructions cetirizine 10 mg oral tablet, 1 tab, Oral, BID chlorthalidone 25 mg oral tablet, 1 tab, Oral, Daily Dexcom G6 sensors, See instructions Dexcom Sensors G6, change every 10 days, See instructions, 3 refills Dexcom Transmitter, change every 3 months, See instructions, 3 refills elderberry Glucagon Emergency Kit for Low Blood Sugar, See Instructions, PRN HumuLIN R KwikPen (Concentrated) 500 units/mL subcutaneous solution, 200 units, Intradermal, AC levothyroxine, 250 mcg, Oral, Daily levothyroxine 125 mcg (0.125 mg) oral tablet, 125 mcg= 1 tab, Oral, Daily, 3 refills lisinopril 5 mg oral tablet, 5 mg= 1 tab, Oral, Daily, 2 refills ONETOUCH VERIO FLEX KIT ONETOUCH VERIO MARLENE Probichew oral tablet, chewable senna (sennosides) 3 mg oral tablet, chewable, 3 mg= 1 tab, Chewed, BID, PRN, 1 refills torsemide 20 mg oral tablet, 60 mg= 3 tab, Oral, BID, 4 refills Allergies rOPINIRole morphine Social History Alcohol Current, [...] Results Test Name Test Result Date/Time WBC 9.6 x10^3/mcL 07/08/2023 19:23 EDT RBC 4.0 x10^6/mcL 07/08/2023 19:23 EDT Hgb 12.3 g/dL 07/08/2023 19:23 EDT Hct 35.8 % 07/08/2023 19:23 EDT MCV 89.5 fL 07/08/2023 19:23 EDT MCH 30.8 pg 07/08/2023 19:23 EDT MCHC 34.4 g/dL 07/08/2023 19:23 EDT RDW-CV 14.4 % 07/08/2023 19:23 EDT Platelets 289 x10^3/mcL 07/08/2023 19:23 EDT Neutro Auto 51.6 % 07/08/2023 19:23 EDT Lymph Auto 41.3 % 07/08/2023 19:23 EDT Pima Auto 2.4 % 07/08/2023 19:23 EDT Eos, Auto 4.1 % 07/08/2023 19:23 EDT Basophil Auto 0.3 % 07/08/2023 19:23 EDT Imm Gran Auto 0.3 % 07/08/2023 19:23 EDT Neutro Absolute 5.0 x10^3/mcL 07/08/2023 19:23 EDT Slide Review Not Indicated 07/08/2023 19:23 EDT Sodium Level 133 mmol/L 07/08/2023 21:03 EDT Sodium Level 131 mmol/L 07/08/2023 19:23 EDT Potassium Level 4.4 mmol/L 07/08/2023 21:03 EDT Potassium Level 4.6 mmol/L 07/08/2023 19:23 EDT Chloride Level 90 mmol/L 07/08/2023 21:03 EDT Chloride Level 88 mmol/L 07/08/2023 19:23 EDT CO2 24 mmol/L 07/08/2023 21:03 EDT CO2 24 mmol/L 07/08/2023 19:23 EDT Alk Phos 194 unit/L 07/08/2023 19:23 EDT AST 29 unit/L 07/08/2023 19:23 EDT ALT 53 unit/L 07/08/2023 19:23 EDT BUN 158 mg/dL 07/08/2023 21:03 EDT BUN 167 mg/dL 07/08/2023 19:23 EDT Glucose Level 87 mg/dL 07/08/2023 21:03 EDT Glucose Level 176 mg/dL 07/08/2023 19:23 EDT Creatinine Level 4.56 mg/dL 07/08/2023 21:03 EDT Creatinine Level 5.02 mg/dL 07/08/2023 19:23 EDT eGFR AA 13 07/08/2023 21:03 EDT eGFR AA 12 07/08/2023 19:23 EDT eGFR Non-AA 13 07/08/2023 21:03 EDT eGFR Non-AA 12 07/08/2023 19:23 EDT Calcium Level 8.5 mg/dL 07/08/2023 21:03 EDT Calcium Level 8.9 mg/dL 07/08/2023 19:23 EDT Phosphorus Level 12.6 mg/dL 07/08/2023 21:03 EDT Protein Total 9.1 g/dL 07/08/2023 19:23 EDT Albumin Level 4.2 g/dL 07/08/2023 21:03 EDT Albumin Level 4.5 g/dL 07/08/2023 19:23 EDT Bilirubin Total 0.5 mg/dL 07/08/2023 19:23 EDT LDH 162 unit/L 07/08/2023 19:23 EDT Lactic Acid Lvl 1.6 mmol/L 07/08/2023 19:23 EDT U hCG Ql NEGATIVE 07/08/2023 19:52 EDT Procalcitonin 1.27 ng/mL 07/08/2023 19:23 EDT UA Color YELLOW. 07/08/2023 19:48 EDT UA Appear CLEAR. 07/08/2023 19:48 EDT UA Glucose NEGATIVE 07/08/2023 19:48 EDT UA Bili NEGATIVE 07/08/2023 19:48 EDT UA Ketones NEGATIVE 07/08/2023 19:48 EDT UA Spec Grav 1.015 07/08/2023 19:48 EDT UA Blood TRACE. 07/08/2023 19:48 EDT UA pH 5.0 07/08/2023 19:48 EDT UA Protein TRACE. 07/08/2023 19:48 EDT UA Urobilinogen 0.2 Uro 07/08/2023 19:48 EDT UA Nitrite NEGATIVE 07/08/2023 19:48 EDT UA Leuk Est NEGATIVE 07/08/2023 19:48 EDT UA Culture Ind?. Not Applicable 07/08/2023 19:48 EDT UA WBC 0-3 07/08/2023 19:48 EDT UA RBC 0-2 07/08/2023 19:48 EDT UA Squam Epithelial Rare 07/08/2023 19:48 EDT UA Mucous None Seen 07/08/2023 19:48 EDT UA Bacteria Rare 07/08/2023 19:48 EDT SARS-CoV-2 (COVID-19) RNA (ID Now) Not Detected 07/08/2023 21:28 EDT Electronically Signed on 07/08/23 10:10 PM Mahesh Pena DRILLER HAND LadanMaurisio carbajal DO Discharge summary * Hortensia Nieto MD: PERFORM Event Display: Discharge Summary Authored Date: [id number] MARIELOS MIRAMONTES :1995 Age:28 years Sex:Female Visit Date:07/08/2023 Primary Care Physician: Jamila Archer MD Hospital Course The patient is a 28-year-old female with past medical history of morbid obesity, poorly controlled insulin-dependent type 2 diabetes mellitus, hypothyroidism, pulmonary hypertension, hyperlipidemia, hypertension who presented to the emergency department with a chief complaint lightheadedness and diarrhea.?? Patient was found to have C. difficile and her infection was severe as her creatinine was also 5.?? For her C. difficile she was started on p.o. vancomycin 125 mg p.o. 4 times daily as this was her first occurrence of C. difficile there is no signs of fulminant C. difficile.?? She also received IV fluids for her DEAN and her kidney function continued to improve during her hospitalization.?? Her C. difficile diarrhea also improved and became less watery as well.?? She also had episodes of hypoglycemia likely related to poor absorption of carbohydrates from her diarrhea as well as her infection and her insulin was decreased she is advised to continue her decreased dose of insulin at home unless she is to become hyperglycemic.?? Her chlorthalidone and lisinopril has also been disconti nued due to her blood pressure is being normotensive and she is to resume this if she is to become hypertensive.?? CBC and BMP to be repeated in approximately 1 week.?? For her other chronic medical conditions are all medications were continued.?? Patient was also advised on weight loss and should be continued to be discussed with her on different options and weight loss as well as possibly nutrition consult.?? Patient will require follow-up with her PCP in 1 week. Physical Exam Vitals & Measurements T:??37.2?C ??(Temporal Artery)?? TMIN:??35.8?C ??(Temporal Artery)?? TMAX:??37.2?C ??(Temporal Artery)?? HR:??95??(Monitored)?? RR:??18?? BP:??108/59?? SpO2:??97%?? Pain Score:??5?? O2 Therapy:??Room air?? General:??Alert and oriented, morbidly obese 28-year-old female no??acute distress Eye:??PERRL, EOMI,?Normal?conjunctiva HENT:??Normocephalic, normal?hearing, moist oral mucosa,?No??scleral icterus,?No??sinus tenderness Neck:??Supple, non-tender,?No??carotid bruits,?No??JVD,?No??lymphadenopathy Lungs:??Clear to auscultation and percussion,?Non-labored?respiration Heart:?Normal?rate,?Regular??rhythm,?No??murmur,?No??gallop,?No??edema Abdomen:??Soft, non-tender, non-distended,?Normal?bowel sounds,?No??masses Musculoskeletal:?Normal?range of motion and strength,?No??tenderness,?No??swelling Skin:??Skin is warm, dry and pink,?No??rashes,?No??lesions Neurologic:??Awake, alert and oriented X4, CN II-XII??grossly??intact Psychiatric:??Cooperative, appropriate mood and affect Procedure/Surgical History ???Due [...] Never tobacco user Tobacco Use:. Discharge Plan Discharge planning greater than 30 minutes. 1.??DEAN (acute kidney injury)??N17.9 The patient is a 28-year-old female with past medical history of morbid obesity, poorly controlled insulin-dependent type 2 diabetes mellitus, hypothyroidism, pulmonary hypertension, hyperlipidemia, hypertension who presented to the emergency department with a chief complaint lightheadedness and diarrhea.?? Patient was found to have C. difficile and her infection was severe as her creatinine was also 5.?? For her C. difficile she was started on p.o. vancomycin 125 mg p.o. 4 times daily as this was her first occurrence of C. difficile there is no signs of fulminant C. difficile.?? She also received IV fluids for her DEAN and her kidney function continued to improve during her hospitalization.?? Her C. difficile diarrhea also improved and became less watery as well.?? She also had episodes of hypoglycemia likely related to poor absorption of carbohydrates from her diarrhea as well as her infection and her insulin was decreased she is advised to continue her decreased dose of insulin at home unless she is to become hyperglycemic.?? Her chlorthalidone and lisinopril has also been disconti nued due to her blood pressure is being normotensive and she is to resume this if she is to become hypertensive.?? CBC and BMP to be repeated in approximately 1 week.?? For her other chronic medical conditions are all medications were continued.?? Patient was also advised on weight loss and should be continued to be discussed with her on different options and weight loss as well as possibly nutrition consult.?? Patient will require follow-up with her PCP in 1 week. Ordered: Basic Metabolic Panel, Blood, Routine, 07/16/23, Once, Lab Collect, DEAN (acute kidney injury) C. difficile diarrhea, Order for future visit CBC w/o Diff, Blood, Routine, 07/16/23, Once, Lab Collect, DEAN (acute kidney injury) C. difficilediarrhea, Order for future visit ?? 2.??C. difficile diarrhea??A04.72 Ordered: Basic Metabolic Panel, Blood, Routine, 07/16/23, Once, Lab Collect, DEAN (acute kidney injury) C. difficile diarrhea, Order for future visit CBC w/o Diff, Blood, Routine, 07/16/23, Once, Lab Collect, DEAN (acute kidney injury) C. difficilediarrhea, Order for future visit ?? 3.??Type 1 diabetes??E10.9 ?? 4.??HTN (hypertension)??I10 ?? 5.??HLD (hyperlipidemia)??E78.5 ?? 6.??HOLLIE treated with BiPAP??G47.33 ?? 7.??Hypothyroidism??E03.9 ?? 8.??Morbid obesity??E66.01 ?? 9.??Pulmonary hypertension??I27.20 ?? 10.??Hypermagnesemia??E83.41 ?? 11.??Aortic stenosis??I35.0 ?? 12.??Peripheral edema??R60.9 ?? 13.??Hyperphosphatemia??E83.39 ?? Orders: Humulin R KwikPen U-500 insulin, 115 units, Subcutaneous, Misc, With Lunch, First Dose: 07/09/23 11:30:00 EDT Humulin R KwikPen U-500 insulin, 160 units, Subcutaneous, Misc, With Morning Meal, First Dose: 07/10/23 7:30:00 EDT vancomycin 125 mg oral capsule, 125 mg = 1 cap, Oral, QID, # 40 cap, 0 Refill(s), Pharmacy: [id number], 149, cm, 07/08/23 18:54:00 EDT, Height/Length Dosing, 131, kg, 07/08/23 18:54:00 EDT, Weight Dosing Discharge Activity Restrictions, as tolerated Discharge Diet Instruction, Consistent Carbohydrate [id number] paz, diabetic Discharge Patient, 07/11/23 8:35:00 EDT, Home Independently All Diagnoses This Visit DEAN (acute kidney injury) C. difficile diarrhea Type 1 diabetes HTN (hypertension) HLD (hyperlipidemia) HOLLIE treated with BiPAP Hypothyroidism Morbid obesity Pulmonary hypertension Hypermagnesemia Aortic stenosis Peripheral edema Hyperphosphatemia Patient Education Clostridioides Difficile Infection, [id number] Acute Kidney Injury, Pediatric Follow Up With When Contact Information Jamila Archer MD 07/25/2023 10:40 AM [place] [address]- Additional Instructions: Hospital follow up Medication Reconciliation New Prescription vancomycin (vancomycin 125 mg oral capsule)1 Capsules Oral (given by mouth) 4 times a day for 10 Days. Refills: 0. ?? Changed bacillus coagulans-inulin (Probichew oral tablet, chewable)1 tab Oral (given by mouth) every day. ?? [id number] Milligrams Oral (given by mouth) every day. ?? insulin regular (HumuLIN R KwikPen (Concentrated) 500 units/mL subcutaneous solution)200 Units Intradermal (in the skin) before meals. 200 before breakfast, 150 units before lunch and dinner and 50 units at bedtime. correction factor of 50 units. ?? [id number] Micrograms Oral (given by mouth) every day. ?? senna (senna 25 mg oral tablet)1 tab Oral (given by mouth) every day. ?? Unchanged atorvastatin (atorvastatin 40 mg oral [...] months)Use to monitor BS. Refills: 3. ?? glucagon (Glucagon Emergency Kit for Low Blood Sugar)follow instructions per kit; as needed low blood sugar. ?? insulin lispro (HumaLOG Mina KwikPen 100 units/mL injectable solution)injects per sliding scale. ?? Other Prescription (ONETOUCH VERIO FLEX KIT)1 each by [facility] [place]. (non drug: combo route) route 4 times daily.. ?? Other Prescription (ONETOUCH VERIO MARLENE)Test blood glucose withone new test strip 4 times daily. ?? torsemide (torsemide 20 mg oral tablet)3 tab Oral (given by mouth) 2 times a day. take 3 tablets toequal 60mg twice daily. Refills: 4. ?? Discontinued chlorthalidone (chlorthalidone 25 mg oral tablet)1 tab Oral (given by mouth) every day. Refills: 0. ?? lisinopril (lisinopril 5 mg oral tablet)1 tab Oral (given by mouth) every day. Refills: 2. 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
--- OUTSIDE RECORDS SUMMARY | 2024-02-29 19:11 | XMS_ITS | Continuity of Care Document ---
Author Name Unknown Organization [facility] Address [address] [place] [address] Care Team Providers Care Pulley Mortiser Operator Name Role Phone Jamila Archer Primary Care Physician [phone] Encounter [facility] Date(s): 11/03/22 - 11/03/22 [facility] [address] [place] [address] Encounter Diagnosis Obstructive sleep apnea syndrome(Discharge Diagnosis) - 11/02/22 Discharge Disposition: Home or Self Care Attending Physician: Sully Singleton NP Referring Physician: Sully Singleton CANS VACUUM TESTER Allergies, Adverse Reactions, Alerts Substance Reaction Severity Status morphine Unknown Active rOPINIRole Severe Active Assessment and Plan Future Appointments Future Scheduled Tests Laboratory* SARS-CoV-2 (COVID-19)/Flu/RSV ([facility]) 08/21/22 Functional Status 11/03/22 Other exposure to Infectious Disease Non e [...] instructions, # 500 EA, 0 Refill(s), Pharmacy: [facility] 415 Start Date: 09/08/22 Status: Ordered ergocalciferol 1.25 mg (50,000 intl units) oral capsule 50,000 IntlUnit = 1 cap, Oral, every week Start Date: 03/02/22 Status: Ordered fenofibrate 30 mg oral capsule 30 mg = 1 cap, Oral, Daily, # 90 cap, 3 Refill(s), Pharmacy: [place] [address], 150, cm, 10/27/22 6:33:00 EST, Height/Length Dosing, 127, kg, 10/27/22 6:33:00 EST, Weight Dosing Start Date: 10/27/22 Status: Ordered fenofibrate 40 mg oral tablet 40 mg = 1 tab, Oral, Daily, # 30 tab, 0 Refill(s), Pharmacy: [place] [address], 150, cm, 10/27/22 6:33:00 EST, Height/Length Dosing, [...] dose., # 90 tab, 3 Refill(s), Pharmacy: [place] [address], 150, cm, 10/27/22 6:33:00 EST, Height/Length D... Start Date: 10/27/22 Status: Ordered levothyroxine 125 mcg (0.125 mg) oral tablet 125 mcg = 1 tab, Oral, Daily, Take one tablet by mouth with water a half hour before eating or taking any other medication. Take with 100 mcg dose., # 90 tab, 3 Refill(s), Pharmacy: [facility], 150, cm, 10/27/22 6:33:00 EST, Height/Length D... Start Date: 10/27/22 Status: Ordered lisinopril 10 mg oral tablet 10 mg = 1 tab, Oral, Daily, for 90 days- dose change 10/20/2021, # 90 tab, 3 Refill(s), Pharmacy: [facility]156, 150, cm, 08/09/22 1:15:00 EST, Height/Length Dosing, 127.01, kg, 08/09/22 1:15:00 EST, Weight Dosing Start Date: 10/05/22 Status: Ordered multivitamin adult, oral tablet 1 tab, Oral, Daily, # 90 tab, 0 Refill(s), other reason (Rx) Start Date: 03/24/22 Status: Ordered ONETOUCH VERIO FLEX KIT ONETOUCH VERIO FLEX KIT, 1 each by [facility]. (non drug: combo route) route 4 times daily. Start Date: 03/02/22 Status: Ordered ONETOUCH VERIO MARLENE ONETOUCH VERIO MARLENE, Test blood glucose withone new test strip 4 times daily Start Date: 03/02/22 Status: Ordered torsemide 20 mg oral tablet 1 tab, Oral, TID, PRN IF NEEDED, # 90 tab, 1 Refill(s), Pharmacy: [facility], 150, cm, 08/09/22 1:15:00 [...] hr, # 30 tab, 0 Refill(s), Pharmacy: [facility], 150, cm, 226:18:00 EDT, [...] Range]: 1 Peripheral Pulse Rate [60-100 bpm] 103 b pm *HI* (11/03/22 9:13 AM) Blood Pressure [90-140/60-90 mmHg] 138/8 1mmHg (11/03/22 9:13 AM) Weight 127.01 kg (11/03/22 9:13 AM) Weight Measured (lbs) 280.009 lb (11/03/22 9:13 AM) Height 149 cm (11/03/22 9:13 AM) Height/Length Measured (inches) 58.66 in ch (11/03/22 9:13 AM) BSA Measured 2.29 m2 (11/03/22 9:13 AM) Body Mass Index 57.21 kg/m2 (11/03/22 9:13 AM) Social History Social History Type Response Tobacco Never tobacco user T obacco Use:. Sex Female Polysomnography (sleep) study * Maryana Goodwin: PERFORM Event Display: Sleep Study Authored Date: [id number] DHARA SOLIS :1995 Age:27 years Sex:Female Visit Date:11/03/2022 Primary Care Physician: Jamila Archer MD ? CPAP/BIPAP TITRATION STUDY WITH TRANSCUTANEOUS CO2 ?? Name: Dhara Solis Attending: Jamila Archer MD : 1995 Location: [facility] MR#: [id number] C Date of Study: 10/26/2022 Report Date: 10/31/2022 Recording Tech: Rafia Arabella ? INDICATION:? 27 year old female with??autoimmune thyroiditis, developmental disorder, HTN, HLD, DM, obesity, tension headaches and HOLLIE on BIPAP. She presents with lethargy and suspected sub therapeutic BIPAP pressures.? PSG 12/30/03 (BMI 26), RDI 33/hr, 02 kiko 84%. ?? PSG 11/20/2014 (BMI 47.66), AHI 91.9/hr, RDI 92.9/hr, REM AHI 134.5/hr, 02 kiko 64%, PLMi 0/hr, EKG NSR. Titration 01/01/15 (BMI 47.06),?? BiPAP 18/14 cm was successful including supine REM, PLMi 4/hr, PLMai 2.8/hr, BiPAP 19/10/4 cm recommended. ?? Titration 06/07/21 (BMI 56.55), BiPAP was titrated form 14/10-16/12 cm with persistent snoring, arousal index 25/hr, PLMi 32.9/hr, PLMai 12.4/hr, BiPAP 22/11/6 cm recommended. ?? Patient is currently on Auto??BiPAP 25/10/6 cm ?? Ht: 4' . ??Wt.: 279.99 lbs. ??BMI = 56.54 kg/m2.? FINDINGS: Lights Out Time: ??11:03:19 PM Lights On Time: ??5:46:19 AM ?? Sleep Architecture ?? Stages ?? TRT: 403.50 min. N1: 13% (50.5 min.) TST: 379.0 min. N2: 61% (230.0 min.) Sleep Efficiency: 94% N3: 16% (61.5 min.) Sleep Onset: 3.5 min. REM: 10% (37.0 min.) REM Latency: 55.0 min. ? Wake After Sleep Onset: 20.5 min. ? CPAP/BIPAP??Data: ? a.??Tested CPAP/BiPAP pressures: 10, 11, 12, 13, 14, 15, 16, 17/11, 18/11, 18/12, 19/13, 20/14, 21/15, 22/16, 23/17, 24/18 cmH2O. b.??Hypopnea scoring by the 4% desaturation criteria. c.??Mean oxygen saturation: ??92% on room air. Kiko??oxygen saturation: ??69% on room air.??50.9 minutes were spent on oxygen saturation less than or equal to 88%.?? d.??Mean CO2 during sleep was 45mmHg. 42% of TST CO2 was between 46-50mmHg; 54% between 41-45mmHg. ?? Other: a.?? Arousal index:??20/hr. (127??arousals) b.?? PLM index:??1.4/hr.??(9??limb movements) c.?PLM arousal index:??0.9/hr. (6 limb movements) d.?? EKG:??Normal sinus.??.??Heart rate minimum:??69/min. ??Maximum:??109/min. ??Mean:??87/min. e.?No significant arrhythmia. f.?No Huey-Grace respirations. g.?No parasomnias. h.?? EEG: ??No obvious abnormalities noted on this limited EEG montage. ? IMPRESSION: 1.??CPAP/BIPAP titration for Severe Obstructive Sleep Apnea associated with significant nocturnal hypoxemia. 2.??Best tested pressure at BIPAP 22/16 cmH2O which was able to reduce AHI to 3.35. Adequate oxygenation was maintained on optimal pressures. 3.??CPAP was tried and failed. Interface problems did not contribute to CPAPs inability to control the patient's sleep apnea. 4.??Close to 50% of TST transcutaneous CO2 was between 46-50mmHg despite elimination of obstructiveevents.?? 5.??Patient used an extra small??Full Face Mirage Quatro??mask. Mask seal was maintained throughoutmost of the night.?? 6.??Patient was difficult to arouse at end of study. Found to be hypoglycemic BS 20 and hypotensiveBP 65/40. Nursing came to bedside and patient was brought to the ED.? RECOMMENDATIONS: 1.??The patient should be maintained on bi-level therapy with mask of choice, heated humidification. Auto BIPAP can be used with Imax 25 cm H2O, Luis M 16 cm H2O and PS ?? 6 cm H2O. Patient may potentially gain some additional benefit from using BIPAP with backup rate or AVAPS. Of utmost importance at this juncture is evaluating the potential causes for hypotension and hypoglycemia that developed in sleep.?? 2.??Mask refit session via patient???s [employer]. 3.??With a BMI = 56.54 kg/m?a weight loss program is advised. 4.??Until appropriate therapy is initiated, patient should avoid alcohol, sedative hypnotics, and driving precautions should be exercised at all times. 5.??Patient will be contacted for URGENT follow-up to go over results and treatment options. ?? Thank you for the courtesy of this referral. ? Report Date: 10/31/2022 Sanaz Bullock MD ? Name: Dhara Solis Attending: Jamila Archer MD : 1995 Location: [facility] MR#: [id number] C Date of Study: 10/26/2022 Report Date: 10/31/2022 Recording Tech: Rafia Bell ? POLYSOMNOGRAPHY REPORT ?? Sleep Times ?? Sleep Data ?? Recording Start: 10:40:20 PM Total Sleep Time (TST): 379.0 min. (6.3 hrs.) Lights Out: 11:03:19 PM Wake Before Sleep: 3.5 min. Sleep Onset: 3.5 min. Wake During Sleep: 18.5 min. Lights On: 5:46:19 AM Wake After Sleep: 2.0 min. Recording End: 7:33:21 AM Total Wake Time: 24.5 min. Recording Duration: 533 min. (8.9 hrs.) REM Time: 37.0 min. (0.6 hrs.) Total Recording Time (TRT = Lights Out to Lights On): 403.50 min. (6.7 hrs.) NREM Time:?? 342.0 min. (5.7 hrs.) Sleep Period Time (SPT): 397.5 min. (6.6 hrs.) Slow Wave Sleep Time: 61.5 min. ? REM Periods: 3 ? Sleep and REM Latency ? Sleep Onset: 3.5 min. Sleep Efficiency 1 94% (100xTST/TIB) REM Onset (from sleep onset): 55.0 min Sleep Efficiency 2 95% (100xTST/SPT) ? Latency from Lights Out ?? Arousals and Awakenings ?? Latency to N1 3.5 min. Total Arousals 127 Latency to N2 9.5 min. Arousal Index 20 Latency to N3 124.5 min. Total Awakenings 22 ? Awakening Index 3 ? Sleep Stages Time (min) % TST % TRT % SPT N1 50.5 min. 13 % 13 % 13 % N2 230.0 min. 61 % 57 % 58 % N3 61.5 min. 16 % 15 % 15 % REM 37.0 min. 10 % 9 % 9 % Wake 24.5 min. ?? 6 % 5 % ? Body Position Position Time REM NREM Apnea/ AHI Mean SpO2 % Snore (min.) (min.) (min.) (min.) Hypopnea ?? Sleep Index ? C / O / M / H? Supine 132.8 20.5 106.7 0 / 4 / 0 / 114 56 90 % 739 Left 27.4 0.0 20.8 0 / 0 / 0 / 43 124 89 % 932 Prone 0.0 0.0 0.0 N/A / N/A / N/A / N/A N/A N/A % N/A Right 242.8 16.5 214.5 0 / 0 / 0 / 7 2 94 % 357 Upright 0.0 0.0 0.0 N/A / N/A / N/A / N/A N/A N/A % N/A ? Arousal Data ? REM NREM Total Arousals with Respiratory Events: 12 72 84 Arousals with LM Events: 0 6 6 Arousals with Snoring Events: 2 16 18 Non-Specific Arousals: 0 21 21 Total Arousals: 14 113 127 Arousal Index: 23 20 20 ? Respiratory Data ?? AHI NREM: 25.1 RDI NREM: 26.5 RERA Events NREM: 8 Apnea + Hypopnea Events NREM: 143 AHI REM: 40.5 RDI REM: 40.5 RERA Events REM: 0 Apnea + Hypopnea Events REM: 25 AHI TST: 26.6 RDI TST: 27.9 RERA Events TST: 8 Apnea + Hypopnea Events TST: 168 ? NREM Central Apnea Obstructive Apnea Mixed Apnea Hypopnea Central Hypopnea RERA Occurrences 0 3 0 140 0 8 Max. Duration (sec.) 0.0 14.1 0.0 37.6 0.0 17.5 Mean Duration (sec.) 0.0 12.7 0.0 14.3 0.0 12.7 Total Duration (min.) 0.0 0.6 0.0 33.4 0.0 1.7 NREM Index 0.0 0.5 0.0 24.6 0 1 ? REM Central Apnea Obstructive Apnea Mixed Apnea Hypopnea Central Hypopnea RERA Occurrences 0 1 0 24 0 0 Max. Duration (sec.) 0.0 10.3 0.0 63.9 0.0 0.0 Mean Duration (sec.) 0.0 10.3 0.0 17.0 0.0 0.0 Total Duration (min.) 0.0 0.2 0.0 6.8 0.0 0.0 REM Index 0.0 1.6 0.0 38.9 0 0 ? Total Central Apnea Obstructive Apnea Mixed Apnea Hypopnea Central Hypopnea RERA Occurrences 0 4 0 164 0 8 Max. Duration (sec.) 0.0 14.1 0.0 63.9 0.0 17.5 Mean Duration (sec.) 0.0 12.1 0.0 14.7 0.0 12.7 Total Duration (min.) 0.0 0.8 0.0 40.2 0.0 1.7 Total Index 0.0 0.6 0.0 26.0 0 1 ? Oximetry Data ? NREM REM TST Wake Mean SpO2 %: 93 % 87 % 92 % 94 % Min SpO2 %: 79 % 69 % 69 % 76 % Max SpO2%: 99 % 94 % 99 % 99 % ? Total REM NREM Awake <50% 0.0 min. 0.0 min. 0.0 min. 0.0 min. 51 - 60% 0.0 min. 0.0 min. 0.0 min. 0.0 min. 61 - 70% 0.1 min. 0.1 min. 0.0 min. 0.0 min. 71 - 80% 6.8 min. 6.5 min. 0.1 min. 0.2 min. 81 - 90% 71.9 min. 14.6 min. 54.3 min. 3.1 min. 91 - 100% 324.1 min. 15.8 min. 287.6 min. 20.6 min. Average 92 87 93 94 Minimum SpO2 69 69 79 76 Desaturation Event Index 29.5 56.8 28.6 0.0 # Desat. Events </= 88% 125 34 91 0 Time(%) with Saturation </= 88% 12.6 4.6 7.7 0.2 Time(min.) with Saturation </= 88% 50.9 18.7 31.2 1.0 ? Snoring Data ? REM NREM Total Total Snore Events with Arousals: 2 16 18 Total Snore Occurrences: 309 2,954 3,263 Total Snoring Time (min): 5.7 57.0 62.7 Snoring Index: 501.1 518.2 516.6 ? Cardiac Data ? NREM REM TRT WAKE Mean Heart Rate (bpm): 87 94 87 92 Low Heart Rate (bpm): 69 72 69 73 High Heart Rate (bpm): 109 108 109 113 ? Periodic Limb Movement Data ?? Rhythmic LM Total LM Total LM w/ Arousals LM w/Arousals Movements Count Index Count Index Wake: 1 2.5 - - Stage N1: 1 1.2 1 1.2 Stage N2: 8 2.1 5 1.3 Stage N3: 0 0.0 0 0.0 REM: 0 0.0 0 0.0 Total Sleep: 9 1.4 6 0.9 ? PLM Series Count: 1 ? Mean PLMs per Series: 6 ? CPAP: ?? Therapy (cm H2O) Time (min.) REM (min.) NREM (min.) SE (%) Apnea C/O/M Hypop. Snore Index AHI RDI Lowest SpO2 (%) Arousal Index 10 3.13 0.00 3.13 41 0/0/0 4 978.82 76.77 76.77 85 76.77 11 4.33 0.00 4.33 100 0/0/0 9 1,038.57 124.63 124.63 79 83.09 12 9.90 0.00 9.90 80 0/0/0 22 878.77 133.33 133.33 83 66.67 13 6.13 0.00 6.13 100 0/0/0 15 949.05 146.76 146.76 83 58.70 14 5.35 0.00 5.35 100 0/0/0 16 987.01 179.46 179.46 86 56.08 15 11.10 0.00 11.10 100 0/0/0 20 1,118.56 108.07 108.07 84 54.04 16 14.42 5.37 9.06 85 0/0/0 16 628.21 66.57 79.05 69 54.08 17/11 9.24 9.24 0.00 90 0/0/0 9 812.00 58.46 58.46 71 19.49 18/11 5.67 5.67 0.00 100 0/1/0 8 1,006.01 95.31 95.31 75 52.95 18/12 10.98 0.23 10.75 100 0/0/0 14 1,376.58 76.48 76.48 80 38.24 19/13 12.58 0.00 12.58 100 0/0/0 15 1,431.32 71.57 81.11 85 42.94 20/14 17.68 0.00 17.68 95 0/0/0 4 1,000.90 13.57 13.57 89 23.75 21/15 40.13 16.50 23.63 94 0/0/0 0 728.22 0.00 0.00 89 2.99 22/16 89.56 0.00 89.56 98 0/0/0 5 172.18 3.35 5.36 88 7.37 23/17 63.56 0.00 63.56 97 0/0/0 3 205.78 2.83 2.83 87 8.50 24/18 75.24 0.00 75.24 92 0/3/0 4 334.93 5.58 5.58 89 15.15 ? Titration Table (chronological): ?? Therapy Detail TRT (min) TST (min) Supine (min) REM (min) Hypop Count Apnea C/O/M AHI RDI SpO2% Mean/Low Snore Index Arousal Index CPAP (CPAP/Mask/Humidifier/Pressure Relief) 10/F/H/E2 7.6 3.1 0.0 0.0 4 0/0/0 76.8 76.8 89/85 978.8 76.8 11/F/H/E2 4.3 4.3 0.0 0.0 9 0/0/0 124.6 124.6 87/79 1,038.6 83.1 12/F/H/E2 12.4 9.9 0.0 0.0 22 0/0/0 133.3 133.3 89/83 878.8 66.7 13/F/H/E2 6.1 6.1 2.7 0.0 15 0/0/0 146.8 146.8 89/83 949.1 58.7 14/F/H/E2 5.3 5.3 5.3 0.0 16 0/0/0 179.5 179.5 89/86 987.0 56.1 15/F/H/E2 11.1 11.1 11.1 0.0 20 0/0/0 108.1 108.1 90/84 1,118.6 54.0 16/F/H/E2 16.9 14.4 14.4 5.4 16 0/0/0 66.6 79.0 89/69 628.2 54.1 ? Bilevel (IPAP/EPAP/Backup Rate/Mask/Humidifier/Pressure Relief) 17/11/0/F/H/E2 10.2 9.2 9.2 9.2 9 0/0/0 58.5 58.5 81/71 812.0 19.5 18/11/0/F/H/E2 5.7 5.7 5.7 5.7 8 0/1/0 95.3 95.3 84/75 1,006.0 52.9 18/12/0/F/H/E2 11.0 11.0 11.0 0.2 14 0/0/0 76.5 76.5 88/80 1,376.6 38.2 19/13/0/F/H/E2 12.6 12.6 12.6 0.0 15 0/0/0 71.6 81.1 89/85 1,431.3 42.9 20/14/0/F/H/E2 18.7 17.7 3.2 0.0 4 0/0/0 13.6 13.6 92/89 1,000.9 23.8 21/15/0/F/H/E2 42.6 40.1 0.0 16.5 0 0/0/0 0.0 0.0 92/89 728.2 3.0 22/16/0/F/H/E2 91.1 89.6 0.0 0.0 5 0/0/0 3.3 5.4 94/88 172.2 7.4 23/17/0/F/H/E2 65.6 63.6 8.8 0.0 3 0/0/0 2.8 2.8 94/87 205.8 8.5 24/18/0/F/H/E2 81.7 75.2 43.2 0.0 4 0/3/0 5.6 5.6 95/89 334.9 15.2 ? Comments: CPAP: ///E2: Respironics Mirage Quatro Full Face mask Size XS ? Mask= N:Nasal, P:Nasal Pillow, F:Full Face Humidifier= H:On, -:Off Pressure Relief= F:Flex, E:EPR, -:Off ?Transcutaneous CO2 Data ? TRT TST REM NREM Wake Mean (mmHg) 44.8 44.9 45.1 44.9 43.4 Max (mmHg) 50.0 50.0 48.0 50.0 49.0 Min (mmHg) 38.0 38.0 39.0 38.0 38.0 ? mmHg TRT (min.) TST (min.) % TST REM (min.) NREM (min.) Wake (min.) % TST w/PB >55?? 0.0 0.0 0.0% 0.0 0.0 0.0 N/A% >50 0.0 0.0 0.0% 0.0 0.0 0.0 N/A% 51-55 0.0 0.0 0.0% 0.0 0.0 0.0 N/A% 46-50 169.2 159.5 42.1% 14.4 145.1 9.6 0.0% 41-45 213.6 206.1 54.4% 21.6 184.5 7.5 INVALID% 36-40 20.3 13.3 3.5% 1.0 12.3 6.9 0.0% 31-35 0.0 0.0 0.0% 0.0 0.0 0.0 N/A% 26-30 0.0 0.0 0.0% 0.0 0.0 0.0 N/A% 21-25 0.0 0.0 0.0% 0.0 0.0 0.0 0.0% </=20 0.0 0.0 0.0% 0.0 0.0 0.0 N/A% ? Electronically Signed on 11/01/22 01:04 PM Maryana Goodwin Progress note * Donovan Parmar M: PERFORM Event Display: Progress Note - Physician Authored Date: [id number] Physician Outpatient Note * Sully Singleton CANS VACUUM TESTER: PERFORM Event Display: Office Clinic Note Physician Authored Date: [id number] DHARA SOLIS :1995 Age:27 years Sex:Female Visit Date:11/03/2022 Primary Care Physician: Jamila Archer MD Physical Exam Vitals & Measurements HR:??103??(Peripheral)?? BP:??138/81?? SpO2:??97%?? HT:??149??cm?? WT:??127.01??kg?? BMI:??57.21?? BSA:??2.29?? Assessment/Plan 1.??Obstructive sleep apnea syndrome??G47.33 Orders: Follow-Up Appointment Request NCTY, *Est. 11/03/23 +/- 28 days, Future Order, In [facility] Problem List/Past Medical History Ongoing Adult health [...] fixation of fracture (12/22/2020)???Adenoidectomy (09/10/2013)???Tonsillectomy (09/10/2003) Medications atorvastatin 40 mg oral tablet, 40 mg= 1 tab, Oral, Daily B-D UF III SHORT PEN NEED MIS, See instructions ergocalciferol 1.25 mg (50,000 intl units) oral capsule, 75393 IntlUnit= 1 cap, Oral, every week fenofibrate 30 mg oral capsule, 30 mg= 1 cap, Oral, Daily, 3 refills fenofibrate 40 mg oral tablet, 40 mg= 1 tab, Oral, Daily Glucagon Emergency Kit for Low [...] 1 tab, Oral, TID, PRN, 1 refills Trulicity Pen 1.5 mg/0.5 mL subcutaneous solution, every week Vitamin C 500 mg oral [...] pediatric vaccine 1995 Recorded Electronically Signed on 11/03/22 09:38 AM Sully Singleton CANS VACUUM TESTER * Sully Singleton CANS VACUUM TESTER: PERFORM Event Display: Office Clinic Note Physician Authored Date: [id number] DHARA SOLIS :1995 Age:27 years Sex:Female Visit Date:11/03/2022 Primary Care Physician: Jamila Archer MD History of Present Illness Dhara Solis??has a visit for titration results. ?? Dhara was last seen by me on??10/26/2022. Nisa has a medical history to include autoimmune thyroiditis, developmental disorder,?? HTN, HLD, DM, obesity, tachycardia, tension headaches and HOLLIE. PSG??12/30/03??(BMI 26), RDI 33/hr, 02 kiko 84%. Repeat PSG 11/20/2014 (BMI 47.66), AHI 91.9/hr, RDI 92.9/hr, REM AHI 134.5/hr, 02 kiko 64%, PLMi 0/hr, EKG NSR. Titration 01/01/15 (BMI 47.06), CPAP 15 cm was not successful in supine REM, BiPAP 18/14cm was successful including supine REM, PLMi 4/hr, PLMai 2.8/hr, BiPAP 19/10/4 cm recommended. Titration 06/07/21 (BMI 56.55), BiPAP was titrated form 14/10-16/12 cm with persistent snoring, arousal index??25/hr, PLMi 32.9/hr, PLMai 12.4/hr,?BiPAP 22/11/6 cm recommended. In 10/2022 Dhara was reporting her BiPAP wasn't working for a couple??of weeks.??She was seen at [facility] and they reportedly found that it was functioning fine but her filter was clogged so they replaced it and reminded her to change it out monthly. She was then taken to the ER when her grandmother found her minimally responsive. At the ER she reported she was fine. Her BS was 70 which she said was good for her. She was fed and repeat BS 225. She was sent home. ?? When I saw her last week she??reported she had been extremely lethargic the last couple of morningsand difficult to arouse. She said that she had not been waking up to her alarms. She said she was having problems with her pressures and she was waking up because she wasn't getting enough air. She has felt more short of breath. Her weight has been stable. When she used the BiPAP last night the pres sures felt better but she is very concerned because she still woke up very lethargic and had to be woken up. ?? She says she tried ropinirole and it made her black out and throw up. ?? I set her BiPAP to 25/10/6 cm at that time and got her in for an urgent titration that same night given her symptoms and concern for hypoventilation.? Titration 10/26/2022 was completed on??10/26/2022 (BMI 56.54) and I reviewed the results with??herin detail today. Sleep efficiency was 94%,?? BiPAP was titrated from 17/11 cm to 24/18 cm, sp02 kiko 69%,??51 minutes were spent at a saturation <88%, arousal index 20/hr, PLMi 1.4/hr, PLM arousal index 0.9/hr. EKG showed NSR. Mean C02 45 mmHg, 42% spent between 46-50 mmHg. Recommended BiPAP Imax 25 cm, Luis M 16 cm, PS 6 cm. ?? On the morning of her titration study the copier technician was not able to arouse Dhara.?? SaO2 was 93-95%, TCPCO2 was 47-48mmHg. Nursing veneer supervisor could not rouse her and calls the ED. Blood pressurewas 65/40; finger SaO2 was 89-90% Information Security Manager applies 10liters O2 with a non rebreather. ED nurses arrive with a stretcher. Pt glucose taken and was 20mg/deciliter. She was transferred to the ER. ?? Dhara says that her BS have been higher than they should be since the changes have been made toher diabetic medications and she has not had any further problems with being unable to be woken up. She has been using her BiPAP and tolerates the increased pressures well. She still feels tired. Sheis not waking up feeling like she is not getting enough air any longer. Physical Exam Vitals & Measurements HR:??103??(Peripheral)?? BP:??138/81?? SpO2:??97%?? HT:??149??cm?? WT:??127.01??kg?? BMI:??57.21?? BSA:??2.29?? N/A Assessment/Plan 1.??Obstructive sleep apnea syndrome??G47.33 HOLLIE with an AHI of 91.9/hr. She had been using BiPAP Imax 22 cm, Luis M 10 cm, PS 4 cm and began to have severe lethargy and unresponsiveness for several mornings in a row. Last visit I set her BiPAP to 25/10/6 cm. ??She had a titration study with TC02 monitoring on 10/26/2022 and on BiPAP at appropriate pressures she maintained good oxygen saturation and did not have a significantly elevated Tc02 level. She was unable to be aroused the morning of the study and her BP was 65/40 with a BS of 20. She was taken to the ER. It does not appear her HOLLIE was the cause of her symptoms. She has since been seen by endocrine at [facility] and her insulin dose was decreased by 50% and she was started on Dexcom. They are following her closely. Since the changes with her DM medications she has not had any furtherincidences. She has tolerated the increased BIPAP pressures very well and is no longer waking at night feeling like she can't breathe.??Additionally her AHI has been excellent at 0.1-1/hr with the pressure increase.??Today I set her BiPAP to Imax 25 cm, Luis M 16 cm, PS 6 cm today with the ramp to start at 16/10 cm and she is shown how to use this feature if needed. She is advised to keep up with the routine maintenance of the machine and to clean/replace parts as needed. I will see her back in one year. She is asked to call our office for any sleep related questions or concerns. I provided greater than 30 minutes in the care of this patient, more than half the time was spent in [id number] counseling. Orders: Follow-Up Appointment Request CRYSTAL, *Est. 11/03/23 +/- 28 days, Future Order, In [facility] Problem List/Past Medical History Ongoing Adult health [...] fixation of fracture (12/22/2020)???Adenoidectomy (09/10/2013)???Tonsillectomy (09/10/2003) Medications atorvastatin 40 mg oral tablet, 40 mg= 1 tab, Oral, Daily B-D UF III SHORT PEN NEED MIS, See instructions ergocalciferol 1.25 mg (50,000 intl units) oral capsule, 36668 IntlUnit= 1 cap, Oral, every week fenofibrate 30 mg oral capsule, 30 mg= 1 cap, Oral, Daily, 3 refills fenofibrate 40 mg oral tablet, 40 mg= 1 tab, Oral, Daily Glucagon Emergency Kit for Low [...] 1 tab, Oral, TID, PRN, 1 refills Trulicity Pen 1.5 mg/0.5 mL subcutaneous solution, every week Vitamin C 500 mg oral [...] pediatric vaccine 1997 Recorded Electronically Signed on 11/03/22 09:39 AM Sully Singleton [employer] Patient Care team information Care Team Personnel Name: Jamila Archer MD Position: Physician Member Role: Informed Provider Address: Address: [place] [address]- [place] Name: Shila Krueger Position: Ambulatory - RN/[employer] ([facility]) Member Role: Interventional Radiology Rn Care Team Related Persons Name: EMILIO PATHAK Address: [address] [place], [phone] Name: ELLIS GRAMAJO Address: Home [address] [place], [phone]
--- OUTSIDE RECORDS SUMMARY | 2024-02-29 19:11 | XMS_ITS | Continuity of Care Document ---
Author Name Unknown Organization [facility] Address [address] [place] [address] Care Team Providers Care Farmer Cash Grain Name Role Phone Jamila Archer Primary Care Physician Encounter [facility] [id number] Date(s): 12/06/23 - 12/06/23 [facility] [address] [place] [address] Discharge Disposition: Home or Self Care Attending Physician: Trish Herr MD Admitting Physician: Trish Herr MD Referring Physician: Trish Herr MD Allergies, Adverse Reactions, Alerts Substance Reaction Severity Status morphine Unknown Active oxyCODONE 1 Unknown Active rOPINIRole Severe Active 1repotrs feeling loopy Assessment and Plan Future Appointments Appointment Date:12/18/2023 03:30:00 PM Scheduled Provider:Shila Krueger Location:[facility] Appointment Type:Care Coordination [facility] Future Scheduled Tests Laboratory* Basic Metabolic [...] wheezing, # 8.5 g, 3 Refill(s), Pharmacy: [facility] [id number], 149, cm, 11/02/23 8:54:00 EST, Height, 137.5, kg, 10/31/23 23:35:00 EST, Weight Dosing Start Date: 11/07/23 Status: Ordered allopurinol 100 mg oral tablet 100 mg = 1 tab, Oral, Daily, # 90 tab, 0 Refill(s), Pharmacy: [facility] [id number], 149, cm, 10/13/23 16:49:00 EST, Height, 137.15, kg, 10/23/23 9:18:00 EST, Weight Dosing Start Date: 10/23/23 Status: Ordered aspirin 81 mg oral capsule 81 mg = 1 cap, Oral, every 24 hr, # 90 cap, 4 Refill(s), Pharmacy: [facility] [address], 149.86, cm, 11/27/23 8:07:00 EDT, Height, 136.08, kg, 11/27/23 8:15:00 EDT, Weight Dosing Start Date: 11/27/23 Status: Ordered atorvastatin 40 mg oral tablet 40 mg = 1 tab, Oral, Daily, # 90 tab, 3 Refill(s), Pharmacy: [facility] [address], 149, cm, 11/02/23 8:54:00 EST, Height, 137.5, kg, 10/31/23 23:35:00 EST, Weight Dosing Start Date: 11/07/23 Status: Ordered B-D UF III SHORT PEN NEED MIS B-D UF III SHORT PEN NEED MIS, Use one new pen needle for each insulin injection 5 to 7 times per day as directed in case of pump malfunction, Supply, See instructions, # 500 EA, 0 Refill(s), Pharmacy: [facility] [id number] Start Date: 09/08/22 Status: Ordered cetirizine 10 mg oral tablet 1 tab, Oral, BID, # 60 tab, 0 Refill(s), Pharmacy: [facility], 149, cm, 07/08/23 18:54:00 [...] higher, # 15 mL, 2 Refill(s), Pharmacy: [facility], 149, cm, 11/02/23 8:54:00 EST, [...] sites, # 4 EA, 0 Refill(s), Pharmacy: [facility], 149, cm, 11/02/23 8:54:00 EST, Height, 137.5, kg, 10/31/23 23:35:00 EST, Weight Dosing Start Date: 11/07/23 Status: Ordered Mounjaro 2.5 mg/0.5 mL subcutaneous solution 2.5 mg =, Subcutaneous, every week, rotate injection sites, # 4 EA, 0 Refill(s), Pharmacy: [facility], 149, cm, 10/13/23 16:49:00 EST, [...] BID, # 6 cap, 0 Refill(s), Pharmacy: [facility], 149, cm, 11/02/23 8:54:00 EST, Height, 137.5, kg, 10/31/23 23:35:00 EST, Weight Dosing Start Date: 11/02/23 Stop Date: 11/05/23 Status: Ordered Toprol-XL 25 mg oral tablet, extended release 25 mg = 1 tab, Oral, Daily, # 90 tab, 4 Refill(s), Pharmacy: [facility], 149.86, cm, 11/27/23 8:07:00 EDT, Height, 136.08, kg, 11/27/23 8:15:00 EDT, Weight Dosing Start Date: 11/27/23 Status: Ordered torsemide 20 mg oral tablet 3 tab, Oral, BID, TWICE DAIY., # 180 tab, 3 Refill(s), Pharmacy: [facility], 149, cm, 07/08/23 18:54:00 [...] Physician Member Role: Informed Provider Address: Address: [address] [place] [address] [place] [address]- [place] Name: Shila Krueger Position: Ambulatory - RN/LANGUAGE TUTOR (Michael) Member Role: Pacu Nurse Care Team Related Persons Name: EMILIO PATHAK Address: Home [address] [facility] [place], [phone] Name: ELLIS GRAMAJO Address: Home [address] [place], [phone]
--- OUTSIDE RECORDS SUMMARY | 2024-02-29 19:11 | XMS_ITS | Continuity of Care Document ---
Author Name Unknown Organization [facility] Address [address] [place] [address] Care Team Providers Care Commercial Intern Name Role Phone Jamila Archer Primary Care Physician Encounter [facility] Date(s): 05/29/23 - 05/29/23 [facility] [address] [place] [address] Encounter Diagnosis Hyperlipemia(Discharge Diagnosis) - 05/29/23 Chest pain(Discharge Diagnosis) - 05/29/23 Discharge Disposition: Home or Self Care Attending Physician: Jaida Lamb RETAIL LOAN OFFICER Allergies, Adverse Reactions, Alerts Substance Reaction Severity [...] 500 EA, 0 Refill(s), Pharmacy: [facility] [address] Start Date: 09/08/22 Status: Ordered cetirizine 10 mg oral tablet See Instructions, Take 1 tablet by mouth once daily, # 90 tab, 3 Refill(s), Pharmacy: [facility] [address], 149, cm, 03/22/23 10:48:00 EDT, Height/Length Dosing, 129.7, kg, 03/22/23 10:48:00 EDT, Weight Dosing Start Date: 03/28/23 Status: Ordered chlorthalidone 25 mg oral tablet 1 tab, Oral, Daily, # 90 tab, 0 Refill(s), Pharmacy: [facility] [address], 149, cm, 03/22/23 10:48:00 EDT, Height/Length Dosing, 129.7, kg, 03/22/23 10:48:00 EDT, Weight Dosing Start Date: 05/15/23 Status: Ordered Ciprodex 0.3%-0.1% otic suspension 4 drops, Ear-Both, BID, # 7.5 mL, 0 Refill(s), Pharmacy: [facility] [address], 149, cm, 03/22/23 10:48:00 EDT, Height/Length Dosing, 129.7, kg, 03/22/23 10:48:00 EDT, Weight Dosing Start Date: 05/22/23 Stop Date: 05/29/23 Status: Ordered Dexcom G6 sensors Dexcom G6 sensors, To check BS 4x daily, Supply, See instructions, # 6 EA, 0 Refill(s), Pharmacy: [facility] [address] Start Date: 11/24/22 Status: Ordered Dexcom Sensors G6, change every 10 days Dexcom Sensors G6, change every 10 days, Use for BS monitoring, Supply, See instructions, # 4 EA, 3Refill(s), Pharmacy: [facility] [address] Start Date: 01/16/23 Status: Ordered Dexcom Transmitter, change every 3 months Dexcom Transmitter, change every 3 months, Use to monitor BS, Supply, See instructions, # 1 EA, 3 Refill(s), Pharmacy: [facility] [address] Start Date: 04/11/23 Status: Ordered Diflucan 150 mg oral tablet 150 mg = 1 tab, Oral, Once, repeat in 72 hours if no improvement, # 2 tab, 0 Refill(s), Pharmacy: [facility] [address], 149, cm, 03/22/23 10:48:00 EDT, Height/Length Dosing, [...] dose., # 90 tab, 3 Refill(s), Pharmacy: [facility] [address], 150, cm, 10/27/22 6:33:00 EST, Height/Length Dosing, 127, kg, 10/27/22 6:33:00 EST, Weight Dosing Start Date: 10/27/22 Status: Ordered lisinopril 5 mg oral tablet 5 mg = 1 tab, Oral, Daily, # 90 tab, 2 Refill(s), Pharmacy: [facility] [address], 149, cm, 03/22/23 10:48:00 EDT, Height/Length Dosing, 129.7, kg, 03/22/23 10:48:00 EDT, Weight Dosing Start Date: 05/01/23 Status: Ordered ONETOUCH VERIO FLEX KIT ONETOUCH VERIO FLEX KIT, [address] [facility]. (non drug: combo route) route 4 times daily. Start Date: 03/02/22 Status: Ordered ONETOUCH VERIO MARLENE ONETOUCH VERIO MARLENE, Test blood glucose withone new test strip 4 times daily Start Date: 03/02/22 Status: Ordered senna (sennosides) 3 mg oral tablet, chewable 3 mg = 1 tab, Chewed, BID, PRN as needed for constipation, # 180 tab, 1 Refill(s), Pharmacy: [facility], 149, cm, 03/22/23 10:48:00 EDT, Height/Length Dosing, 129.7, kg, 03/22/23 10:48:00 EDT, Weight Dosing Start Date: 05/01/23 Status: Ordered torsemide 20 mg oral tablet 60 mg = 3 tab, Oral, BID, take 3 tablets to equal 60mg twice daily, # 180 tab, 4 Refill(s), Pharmacy: [facility], 149, cm, 12/31/22 3:07:00 [...] Rate [60-100 bpm] 103 b pm *HI* (05/29/23 8:18 AM) Blood Pressure [90-140/60-90 mmHg] 119/7 2mmHg (05/29/23 8:18 AM) Weight 132.05 kg (05/29/23 8:18 AM) Weight Measured (lbs) 291.12 lb (05/29/23 8:18 AM) Social History Social History Type Response Tobacco Never tobacco user T obacco Use:. Sex Female Physician Outpatient Note * Jaida Lamb RETAIL LOAN OFFICER: PERFORM Event Display: Office Clinic Note Physician Authored Date: [id number] TRAYSAUL MENJIVARDiana Rangel :1995 Age:28 years Sex:Female Visit Date:05/29/2023 Primary Care Physician: Jamila Archer MD History of Present Illness Cardiac Problems: 1. Edema-Torsemide 60mg BID, atorvastatin 40mg, chlorthalidone 25mg, lisinopril 5mg 2. Diabetes Mellitus 3. Obesity 4. HOLLIE with BiPAP 5. Tachycardia 6. Mild aortic stenosis, with mean gradient of 9 on echocardiogram November 2022 7. Pulmonary hypertension, with RV systolic pressure November 2022 of 45mmHg, likely attributable to HOLLIE. ?? This is a 28-year-old female who I last saw in the office on 02/20/2023 for edema. She is on a new diet and has lost weight since starting. She still had bilateral lower extremity edema on last visitand we added chlorthalidone to her medication regimen and a chem-7 in 10 days. She is maintained onTorsemide 60mg BID, atorvastatin 40mg, chlorthalidone 25mg, lisinopril 10mg. At her last PCP visit She reported to her PCP??that CP only occurs when she is upset and would need a different type of test. Her potassium was low and was started on supplement. Her magnesium was 2.6 and started on magnesium. For elevated kidney function labs, she decreased water pills but ankles swelled back up and she resumed use. She remains on torsemide and chlorthalidone. She wanted to stop lisinopril. Her PCP decreased her Lisinopril to 5mg daily at their last visit due to low BP readings at home. ?? She states that her grandfather recently within about a month.?? She was scheduled at her last appointment??she had to cancel because that was the day of his memorial. ??She ended up in the ER??during this time,??she said she did not know how grief??could affect her physical body. ??Shedescribes having chest pain, when her potassium was low.?? She is currently on potassium chloride and a magnesium supplement.?? She states ??life has been life. ??She is currently looking for another job, she is experiencing burnout??and they are not working with her schedule.?? She was experiencing??dizziness on 10 mg of lisinopril with the chlorthalidone. ??So her??PCP and she decided to decrease her lisinopril to 5 mg??and to take this at night, and the chlorthalidone in the morning. ??This has been working well for her. ??She did try stopping??torsemide during her dizziness, but she swelled up again.?? She went back on the torsemide.?? She states that she has not been able to cut downon the fluid intake that she is taking every day, due to dry mouth. ?? She describes??a 5 out of 10 nonradiating??burning in her central chest that occurs 3 times a day. ??This started about a month ago??when her grandfather .?? In the ER she was told that her joints were inflamed. ??She did try a Zio??and a another heart monitor she states. ??The ZIO made her skin??burn after 24 hours she removed this, she tried another??skin sensitive??monitor and this made her skin worse. ??She never sent these in for resulting, I encouraged her to do so.?? She states when she??goes to the bathroom or stands up too quickly she feels like her chest is burning again. ??Thislast for about 5 minutes with??with no nausea, dizziness, syncope,??diaphoresis. ?? She states that her breathing is okay she denies syncope.?? She does have some shortness of breath if she is??in a rust or walking upstairs.?? 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 ??During this time she experiences no chest pain, but she does have some shortness of breath. ??She is still on her weight loss regimen and she has currently lost 20 pounds.?? She states that her swelling is??okay if she remains on torsemide. ?? She is currently taking torsemide??between 8 and 10 AM, and 3 to 4 PM. ??She finds that she urinates in 20 to 30 minutes..?? The increased urination last 3 to 4 hours, and she denies nocturia. ??She is currently drinking a caffeine/electrolyte drink that is 20 ounces in the morning, about 30 ounces of water throughout the day, and about 15 ounces??of coffee and 12 ounces of jovana andre at night. Review of Systems A complete review of systems is negative other than as noted in the history of present illness. Physical Exam Vitals & Measurements HR:??103??(Peripheral)?? BP:??119/72?? SpO2:??90%?? WT:??132.05??kg?? HEENT: Normocephalic, atraumatic Respirations: Clear to auscultation [...] lead loss. 05/29/2023:EKG: Sinus rhythm at 96bpm. Grabill and intervals within normal limits. ? 28-year-old female with Edema ?? Edema:??There is no significant edema on exam today.?? It sounds like her??torsemide is at a therapeutic??dose??and I do not want to change this today.?? I recommended that she stay on the torsemide and the chlorthalidone.?? I??spoke to her at length about??decreasing her fluid intake, there are??tricks of??chewing gum??or sucking on a lozenge or??for example to increase saliva in her mouth.?? Itis working against us with her drinking so much during the day??to be able to pull out enough fluidwith the torsemide. ?? Hypokalemia:??She states that her PCP would like??her to??continue the potassium chloride. ??I do not see that in her medication list currently but I am okay with reordering this once we redo her labs. ??She has not had labs done since March. ??I ordered this today, and she states that she is going to get this done within the next week.?? Once we see the results of her??potassium??we can then??reorder potassium chloride if we need to. ?? Chest pain:??She is describing 5 out of 10 burning chest pain that is nonradiating??that happens 3 times per day.?? I discussed with her??that??we??we will order a stress test today??to rule out ischemia??and any cardiac causes for this.?? She does not think that she can walk on a treadmill currently, so I ordered a Lexiscan nuclear stress test. ??We went over this process today. ??I will see reyes in 3 months to go over these results. ??She knows if she needs us sooner to call??with any questions or concerns. ?? It was a pleasure to see Dhara. Clinic Assessment/Plan Chest pain??R07.9 Actions: COMPLETED - 55232 Office/Outpatient Visit - Established Patient, Level 3 (20-29 min)., 05/29/23 8:18:00 EDT, Chest pain FUTURE - Follow-Up Appointment Request CRYSTAL, *Est. 08/28/23 +/- 21 days, Future Order, In [facility], [facility] FUTURE - NM Myocardial SPECT Drug Stress Multi, 05/29/23, Routine, Reason: Chest pain, Transport Mode: Ambulatory, Chest pain, Exam to be performed outside organization? ?? Hyperlipemia??E78.5 Actions: [facility] - CV ECG Clinic, 05/29/23 8:17:00 EDT, Routine, Reason: Other (please specify), Stop dateand time 05/29/23 8:17:00 EDT, Hyperlipemia, ORD_SET_REQ_DT_RANGE, Cheri's Internal Person Id ?? Additional Actions: FUTURE - Basic Metabolic Panel, Blood, Routine, 05/29/23, Once, Lab Collect, Edema, Order for future visit COMPLETED - Follow-Up Appointment Request CRYSTAL, 05/29/23 8:20:00 EDT, In [facility], [facility], 05/29/23 8:20:00 EDT Problem List/Past Medical History Ongoing Adult health examination Autoimmune thyroiditis Bilateral lower extremity edema Constipation Developmental disorder Diabetic ketoacidosis Erythroderma HLD (hyperlipidemia) Hospital discharge follow-up HTN (hypertension) Hyperlipidemia Hypertensive disorder Idiopathic sleep related non-obstructive alveolar hypoventilation Intermenstrual bleeding - irregular Irregular sleep-wake pattern Kidney disease Localized edema Mediastinal adenopathy Morbid obesity Obesity Obstructive sleep apnea syndrome HOLLIE treated with BiPAP Otitis externa of both ears Palpitations Pulmonary [...] Unchanged cetirizine (cetirizine 10 mg oral tablet) See instructions Take 1 tablet by mouth once daily ?? Unchanged chlorthalidone (chlorthalidone 25 mg oral tablet) 1 tab Oral (given by mouth) Every day Unchanged ciprofloxacin-dexamethasone otic (Ciprodex 0.3%-0.1% otic suspension) 4 Drops Both ears 2 times a day Otitis externa of both ears Duration: 7 Days Unchanged Durable Medical Equipment for Prescription (B-D [...] instructions Use to monitor BS ?? Unchanged ergocalciferol (ergocalciferol 1.25 mg (50,000 intl units) oral capsule) 1 Capsules Oral (given by mouth) Every week Unchanged fluconazole (Diflucan 150 mg oral tablet) 1 tab Oral (given by mouth) Once Right otitis media with effusion repeat in 72 hours if no improvement ?? Unchanged glucagon (Glucagon Emergency Kit for Low Blood Sugar) See instructions hypoglycemia symptoms follow instructions per kit, As needed for low blood sugar ?? Unchanged insulin regular (HumuLIN R KwikPen (Concentrated) 500 units/ mL subcutaneous solution) 200 Units Intradermal (in the skin) Before meals correction facter of 50 units ?? Unchanged levothyroxine (levothyroxine 125 mcg (0.125 mg) oral tablet) 1 tab Oral (given by mouth) Every day Hypothyroidism Take one tablet by mouth with water a half hour before eating or taking any other medication. Take with 100 mcg dose. ?? Unchanged lisinopril (lisinopril 5 mg oral tablet) 1 tab Oral (given by mouth) Every day Unchanged Other Prescription (ONETOUCH VERIO FLEX KIT) [address] [facility]. (non drug: combo route) route 4 times daily. ?? Unchanged Other Prescription (ONETOUCH VERIO MARLENE) Test blood glucose withone new test strip 4 times daily ?? Unchanged senna (senna (sennosides) 3 mg oral tablet, chewable) 1 tab Chewed 2 times a day as needed for as needed for constipation Constipation Unchanged torsemide (torsemide 20 mg oral tablet) 3 tab Oral (given by mouth) 2 times a day take 3 tablets to equal 60mg twice daily ?? Allergies rOPINIRole morphine Social History Alcohol Current, [...] pediatric vaccine 1995 Recorded Electronically Signed on 05/29/23 09:01 AM Jaida Lamb NP Patient Care team information Care Team Personnel Name: Jamila Archer MD Position: Physician Member Role: Informed Provider Address: Address: [place] [address]- [place] Name: Shila Krueger Position: Ambulatory - RN/PRINT MACHINE OPERATOR (Michael) Member Role: Construction Safety Manager Care Team Related Persons Name: EMILIO PATHAK Address: Home [address] [place], [phone] Name: ELLIS GRAMAJO Address: Home [address] [place], [phone]
--- OUTSIDE RECORDS SUMMARY | 2024-02-29 19:11 | XMS_ITS | Continuity of Care Document ---
Author Name Unknown Organization [facility] Address [address] [place] [address] Care Team Providers Care Sports Centre Manager Name Role Phone Jamila Archer Primary Care Physician Encounter [facility] Date(s): 08/16/23 - 08/16/[address] [address] Discharge Disposition: Home or Self Care Attending Physician: Jamila Archer MD Admitting Physician: Jamila Archre MD Referring Physician: Jamila Archer MD Allergies, Adverse Reactions, Alerts Substance Reaction Severity Status morphine Unknown Active rOPINIRole Severe Active Assessment and Plan Future Appointments Future Scheduled Tests Laboratory* Basic Metabolic Panel 05/29/23 * CBC w/ Diff 05/01/23 * Comprehensive Metabolic Panel 05/01/23 * Comprehensive Metabolic Panel 08/16/23 * Uric Acid 08/16/23 * SARS-CoV-2 (COVID-19)/Flu/RSV (GeneXpert) 08/21/22 Radiology* XR [...] instructions, # 500 EA, 0 Refill(s), Pharmacy: [facility] Start Date: 09/08/22 Status: Ordered cetirizine 10 mg oral tablet 1 tab, Oral, BID, # 60 tab, 0 Refill(s), Pharmacy: [facility], 149, cm, 03/22/23 10:48:00 EDT, Height/Length Dosing, 129.7, kg, 03/22/23 10:48:00 EDT, Weight Dosing Start Date: 07/02/23 Status: Ordered chlorthalidone 25 mg oral tablet 1 tab, Oral, Daily, # 90 tab, 3 Refill(s), Pharmacy: [facility] [address], 149, cm, 07/08/23 18:54:00 EDT, Height/Length Dosing, 133.2, kg, 07/25/23 10:54:00 EST, Weight Dosing Start Date: 08/11/23 Status: Ordered colchicine 0.6 mg oral tablet 0.6 mg = 1 tab, Oral, BID, Take 2 tablets for 1.2mg followed by one tablet 0.6 mg one hour later today. Days 2-10 take one tablet twice a day, # 21 tab, 0 Refill(s), Pharmacy: [facility], 149, cm, 07/08/23 18:54:00 EDT, Height/Length Dosing, 133.2, kg, 07/25/23 10:54:00 EST, Weight Dosing Start Date: 08/16/23 Status: Ordered Dexcom G6 sensors Dexcom G6 sensors, To check BS 4x daily, Supply, See instructions, # 6 EA, 0 Refill(s), Pharmacy: [facility] [address] Start Date: 11/24/22 Status: Ordered Dexcom Sensors G6, change every 10 days Dexcom Sensors G6, change every 10 days, Use for BS monitoring, Supply, See instructions, # 4 EA, 3Refill(s), Pharmacy: [facility] Start Date: 01/16/23 Status: Ordered Dexcom Transmitter, change every 3 months Dexcom Transmitter, change every 3 months, Use to monitor BS, Supply, See instructions, # 1 EA, 3 Refill(s), Pharmacy: [facility] Start Date: 04/11/23 Status: Ordered elderberry [...] BID, # 60 tab, 0 Refill(s), Pharmacy: [facility], 149, cm, 07/08/23 18:54:00 EDT, Height/Length Dosing, 133.2, kg, 07/25/23 10:54:00 EST, Weight Dosing Start Date: 08/16/23 Status: Ordered ONETOUCH VERIO FLEX KIT ONETOUCH VERIO FLEX KIT, 1 each by [facility] [place]. (non drug: combo [...] DAIY., # 180 tab, 3 Refill(s), Pharmacy: [facility], 149, cm, 07/08/23 [...] Results Laboratory List Name Date Automated Diff 08/16/23 C-Reactive Protein (CRP) 08/16/23 CBC w/ Diff 08/16/23 Comprehensive Metabolic Panel (CMP) 08/16 Magnesium Level 08/16/23 Sedimentation Rate (ESR) 08/16/23 Uric Acid 08/16/23 Most recent to oldest [Reference Range]: 1 WBC [5.0-10.0 x10^3/mcL] 8.8 x10^3/mcL (08/16/23 1:41 PM) RBC [4.1-5.3 x10^6/mcL] 3.8 x10^6/mcL *LOW* (08/16/23 1:41 PM) Neutro Auto [40.0-75.0 %] 57.8 % (08/16/23 1:41 PM) Lymph Auto [20.0-50.0 %] 29.5 % (08/16/23 1:41 PM) [place] Auto [2.0-15.0 %] 4.2 % (08/16/23 1:41 PM) Basophil Auto [0.0-1.0 %] 0.6 % (08/16/23 1:41 PM) BUN [7-18 mg/dL] 23 mg/dL *HI* (08/16/23 1:41 PM) Glucose Level [74-106 mg/dL] 331 mg/dL *HI* (08/16/23 1:41 PM) Potassium Level [3.5-5.1 mmol/L] 4.7 mmo l/L (08/16/23 1:41 PM) MCV [80.0-96.0 fL] 92.7 fL (08/16/23 1:41 PM) CRP [<=10.0 mg/L] 9.9 mg/L (08/16/23 1:41 PM) AST [15-37 unit/L] 137 unit/L *HI* (08/16/23 1:41 PM) ALT [14-59 unit/L] 203 unit/L *HI* (08/16/23 1:41 PM) MCHC [31.0-35.0 g/dL] 32.5 g/dL (08/16/23 1:41 PM) Sodium Level [136-145 mmol/L] 137 mmol/L (08/16/23 1:41 PM) Hct [37.0-47.0 %] 35.7 % *LOW* (08/16/23 1:41 PM) Calcium Level [8.5-10.1 mg/dL] 10.0 mg/d L (08/16/23 1:41 PM) Albumin Level [3.4-5.0 g/dL] 3.7 g/dL (08/16/23 1:41 PM) Protein Total [6.4-8.2 g/dL] 7.8 g/dL (08/16/23 1:41 PM) MCH [26.0-32.0 pg] 30.1 pg (08/16/23 1:41 PM) Magnesium Level [1.8-2.4 mg/dL] 1.9 mg/d L (08/16/23 1:41 PM) Neutro Absolute 5.1 x10^3/mcL *NA* (08/16/23 1:41 PM) Bilirubin Total [0.2-1.0 mg/dL] 0.5 mg/d L (08/16/23 1:41 PM) Hgb [12.0-16.0 g/dL] 11.6 g/dL *LOW* (08/16/23 1:41 PM) Uric Acid [2.6-6.0 mg/dL] 12.6 mg/dL *HI* (08/16/23 1:41 PM) Alk Phos [46-146 unit/L] 264 unit/L *HI* (08/16/23 1:41 PM) Platelets [130-450 x10^3/mcL] 314 x10^3/ mcL (08/16/23 1:41 PM) CO2 [21-32 mmol/L] 28 mmol/L (08/16/23 1:41 PM) eGFR Non-AA [>=60] 81 (08/16/23 1:41 PM) eGFR AA [>=60] 81 (08/16/23 1:41 PM) Chloride Level [98-107 mmol/L] 98 mmol/L (08/16/23 1:41 PM) RDW-CV [11.5-14.5 %] 15.5 % *HI* (08/16/23 1:41 PM) Imm Gran Auto [0.0-0.9 %] 0.5 % (08/16/23 1:41 PM) Creatinine Level [0.55-1.02 mg/dL] 0.99 mg/dL (08/16/23 1:41 PM) Eos, Auto [1.0-6.0 %] 7.4 % *HI* (08/16/23 1:41 PM) ESR, W[place]gren [0-30 mm/hr] 65 mm/hr 1 *HI* (08/16/23 1:41 PM) 1Result Comment: Entry error Social History Social History Type Response Tobacco Never tobacco user T obacco Use:. Sex Female Patient Care team information Care Team Personnel Name: Jamila Archer MD Position: Physician Member Role: Informed Provider Address: Address: [place], [place] [id number] [place] [address] Name: Shila Krueger Position: Ambulatory - RN/GREASE MAN ([facility]) Member Role: Product Management Internship Care Team Related Persons Name: EMILIO PATHAK Address: Home [address] [facility] [phone] Name: ELLIS GRAMAJO Address: Home [address] [place], [phone]
--- OUTSIDE RECORDS SUMMARY | 2024-02-29 19:11 | XMS_ITS | Continuity of Care Document ---
Author Name Unknown Organization [facility] Address [address] [place] [address] Care Team Providers Care Sustainability Officer Name Role Phone Jamila Archer Primary Care Physician Encounter [facility] Date(s): 07/25/23 - 07/25/23 [facility] [address] [place] [address] Discharge Disposition: Home or Self Care Attending [...] 05/01/23 * Comprehensive Metabolic Panel 05/01/23 * Magnesium Level 05/01/23 * [...] instructions, # 500 EA, 0 Refill(s), Pharmacy: [facility] [id number] Start Date: 09/08/22 Status: Ordered cetirizine 10 mg oral tablet 1 tab, Oral, BID, # 60 tab, 0 Refill(s), Pharmacy: [facility] [address], 149, cm, 03/22/23 10:48:00 EDT, Height/Length Dosing, 129.7, kg, 03/22/23 10:48:00 EDT, Weight Dosing Start Date: 07/02/23 Status: Ordered Dexcom G6 sensors Dexcom G6 sensors, To check BS 4x daily, Supply, See instructions, # 6 EA, 0 Refill(s), Pharmacy: [facility] [id number] Start Date: 11/24/22 Status: Ordered Dexcom Sensors G6, change every 10 days Dexcom Sensors G6, change every 10 days, Use for BS monitoring, Supply, See instructions, # 4 EA, 3Refill(s), Pharmacy: [facility] [id number] Start Date: 01/16/23 Status: Ordered Dexcom Transmitter, change every 3 months Dexcom Transmitter, change every 3 months, Use to monitor BS, Supply, See instructions, # 1 EA, 3 Refill(s), Pharmacy: [facility] [address] Start Date: 04/11/23 Status: Ordered elderberry 350 [...] ONETOUCH VERIO FLEX KIT, 1 each by [facility] [place]. (non drug: combo [...] daily, # 180 tab, 4 Refill(s), Pharmacy: [facility], 149, cm, 12/31/22 3:07:00 EDT, Height/Length Dosing, 150, kg, 12/31/22 3:07:00 EDT, Weight Dosing Start Date: 02/28/23 Status: Ordered Problem List Condition Confirmation Course [...] Results Laboratory List Name Date Automated Diff 07/25/23 CBC w/ Diff 07/25/23 Comprehensive Metabolic Panel (CMP) 07/11 01/30 Hemoglobin A1c 07/25/23 Lipid Panel 07/25/23 Magnesium Level 07/25/23 Phosphorus Level 07/25/23 Most recent to oldest [Reference Range]: 1 WBC [5.0-10.0 x10^3/mcL] 7.9 x10^3/mcL (07/25/23 11:47 AM) RBC [4.1-5.3 x10^6/mcL] 3.5 x10^6/mcL *LOW* (07/25/23 11:47 AM) Neutro Auto [40.0-75.0 %] 46.3 % (07/25/23 11:47 AM) Lymph Auto [20.0-50.0 %] 41.0 % (07/25/23 11:47 AM) [place] Auto [2.0-15.0 %] 5.5 % (07/25/23 11:47 AM) Basophil Auto [0.0-1.0 %] 0.8 % (07/25/23 11:47 AM) BUN [7-18 mg/dL] 32 mg/dL *HI* (07/25/23 11:47 AM) Cholesterol Total [50-200 mg/dL] 236 mg/ dL *HI* (07/25/23 11:47 AM) LDL [0-130 mg/dL] See Comment mg/dL 1 *NA* (07/25/23 11:47 AM) Glucose Level [74-106 mg/dL] 241 mg/dL *HI* (07/25/23 11:47 AM) Potassium Level [3.5-5.1 mmol/L] 4.6 mmo l/L (07/25/2347 AM) MCV [80.0-96.0 fL] 92.0 fL (07/25/23 AM) HDL [40-60 mg/dL] 35 mg/dL *LOW* (07/25/23 AM) AST [15-37 unit/L] 162 unit/L *HI* (07/25/23 AM) ALT [14-59 unit/L] 231 unit/L *HI* (07/25/2347 AM) MCHC [31.0-35.0 g/dL] 32.7 g/dL (07/25/23 AM) Sodium Level [136-145 mmol/L] 139 mmol/L (07/25/23 AM) Hct [37.0-47.0 %] 32.4 % *LOW* (07/25/23) Triglycerides [0-150 mg/dL] 574 mg/dL *HI* (07/25/23 AM) Calcium Level [8.5-10.1 mg/dL] 9.6 mg/dL (07/25/23 AM) Phosphorus Level [2.6-4.7 mg/dL] 2.5 mg/ dL *LOW* (07/25/23 AM) Albumin Level [3.4-5.0 g/dL] 3.7 g/dL (07/25/23 AM) Protein Total [6.4-8.2 g/dL] 7.6 g/dL (07/25/23 AM) MCH [26.0-32.0 pg] 30.1 pg (07/25/23 AM) Magnesium Level [1.8-2.4 mg/dL] 2.2 mg/d L (07/25/23 AM) Neutro Absolute 3.7 x10^3/mcL *NA* (07/25/23 AM) Bilirubin Total [0.2-1.0 mg/dL] 0.5 mg/d L (07/25/2347 AM) Hgb [12.0-16.0 g/dL] 10.6 g/dL *LOW* (07/25/23 11:47 AM) Alk Phos [46-146 unit/L] 284 unit/L *HI* (07/25/23 11:47 AM) Platelets [130-450 x10^3/mcL] 247 x10^3/ mcL (07/25/23 11:47 AM) CO2 [21-32 mmol/L] 29 mmol/L (07/25/23 11:47 AM) eGFR Non-AA [>=60] 74 (07/25/23 11:47 AM) eGFR AA [>=60] 74 (07/25/23 11:47 AM) Hemoglobin A1c [4.0-6.0 %] 8.6 % *HI* (07/25/23 11:47 AM) Chloride Level [98-107 mmol/L] 103 mmol/ L (07/25/23 11:47 AM) RDW-CV [11.5-14.5 %] 15.5 % *HI* (07/25/23 11:47 AM) Imm Gran Auto [0.0-0.9 %] 0.8 % (07/25/23 11:47 AM) Creatinine Level [0.55-1.02 mg/dL] 1.06 mg/dL *HI* (07/25/23 11:47 AM) Eos, Auto [1.0-6.0 %] 5.6 % (07/25/23 11:47 AM) 1Result Comment: LDL calculation is INVALID when Triglyceride is greater than 400. Social History Social History Type Response Tobacco Never tobacco user T obacco Use:. Sex Female Patient Care team information Care Team Personnel Name: Jamila Archer MD Position: Physician Member Role: Primary Care Physician Address: Address: [place], [place] [address] Name: Shila Krueger Position: Ambulatory - RN/NATIONAL SALES ASSOCIATE ([facility]) Member Role: Front Desk Receptionist Name: Hortensia Nieto MD Position: Physician Member Role: Informed Provider Address: Address: [address] [place] [address] Care Team Related Persons Name: MYRIAM PATHAKET Address: Home [address] [facility] [facility] [address] [place] [phone] Name: ELLIS GRAMAJO Address: Home [address] [place], [phone]
--- OUTSIDE RECORDS SUMMARY | 2024-02-29 19:11 | XMS_ITS | Continuity of Care Document ---
Author Name Unknown Organization [facility] Address [address] [place] [address] Care Team Providers Care Lone Lead Lineman Name Role Phone Jamila Archer Primary Care Physician [facility] Date(s): 08/16/23 - 08/16/23 [facility] [address] [place] [address] Encounter Diagnosis Right ankle pain(Discharge Diagnosis) - 08/16/23 Right foot pain(Discharge Diagnosis) - 08/16/23 Discharge Disposition: Home or Self Care Attending [...] instructions, # 500 EA, 0 Refill(s), Pharmacy: [facility] Start Date: 09/08/22 Status: Ordered cetirizine 10 mg oral tablet 1 tab, Oral, BID, # 60 tab, 0 Refill(s), Pharmacy: [facility], 149, cm, 03/22/23 10:48:00 EDT, Height/Length Dosing, 129.7, kg, 03/22/23 10:48:00 EDT, Weight Dosing Start Date: 07/02/23 Status: Ordered chlorthalidone 25 mg oral tablet 1 tab, Oral, Daily, # 90 tab, 3 Refill(s), Pharmacy: [facility] [address], 149, cm, 07/08/23 18:54:00 EDT, Height/Length Dosing, 133.2, kg, 07/25/23 10:54:00 EST, Weight Dosing Start Date: 08/11/23 Status: Ordered colchicine 0.6 mg oral tablet 0.6 mg = 1 tab, Oral, BID, Take 2 tablets for 1.2mg followed by one tablet 0.6 mg one hour later today. Days 2-10 take one tablet twice a day, # 21 tab, 0 Refill(s), Pharmacy: [facility] [address], 149, cm, 07/08/23 18:54:00 EDT, Height/Length Dosing, 133.2, kg, 07/25/23 10:54:00 EST, Weight Dosing Start Date: 08/16/23 Status: Ordered Dexcom G6 sensors Dexcom G6 sensors, To check BS 4x daily, Supply, See instructions, # 6 EA, 0 Refill(s), Pharmacy: [facility] [id number] Start Date: 11/24/22 Status: Ordered Dexcom Sensors G6, change every 10 days Dexcom Sensors G6, change every 10 days, Use for BS monitoring, Supply, See instructions, # 4 EA, 3Refill(s), Pharmacy: [facility] 415 Start Date: 01/16/23 Status: Ordered Dexcom Transmitter, change every 3 months Dexcom Transmitter, change every 3 months, Use to monitor BS, Supply, See instructions, # 1 EA, 3 Refill(s), Pharmacy: [facility] [address] Start Date: 04/11/23 Status: Ordered elderberry 350 [...] BID, # 60 tab, 0 Refill(s), Pharmacy: [facility] [address], 149, cm, 07/08/23 18:54:00 EDT, Height/Length Dosing, 133.2, kg, 07/25/23 10:54:00 EST, Weight Dosing Start Date: 08/16/23 Status: Ordered ONETOUCH VERIO FLEX KIT ONETOUCH VERIO FLEX KIT, 1 each by [facility] [place]. (non drug: combo route) route 4 times [...] DAIY., # 180 tab, 3 Refill(s), Pharmacy: [facility], 149, cm, 07/08/23 [...] Physician Member Role: Informed Provider Address: Address: [place] [address] [place] Name: Shila Krueger Position: Ambulatory - RN/SCRUB WHEEL OPERATOR ([facility]) Member Role: Intravenous Therapy Nurse Care Team Related Persons Name: EMILIO PATHAK Address: Home [address] [place], [phone] Name: ELLIS GRAMAJO Address: Home [address] [place], [phone]
--- OUTSIDE RECORDS SUMMARY | 2024-02-29 19:11 | XMS_ITS | Continuity of Care Document ---
Author Name Unknown Organization [facility] Address [address] [place] [address] Care Team Providers Care Land Classifier Name Role Phone Jamila Archer Primary Care Physician Encounter [facility] Date(s): 11/28/22 - 11/28/[address] [address] Encounter Diagnosis Dyspnea(Discharge Diagnosis) - 11/28/22 Discharge Disposition: Home or Self Care Attending [...] instructions, # 500 EA, 0 Refill(s), Pharmacy: [facility] [address] Start Date: 09/08/22 Status: Ordered Bactrim DS 800 mg-160 mg oral tablet 1 tab, Oral, BID, # 20 tab, 0 Refill(s), Pharmacy: [facility] [address], 150, cm, 11/18/22 19:16:00 EST, Height/Length Dosing, 127, kg, 11/18/22 19:16:00 EST, Weight Dosing Start Date: 11/21/22 Stop Date: 12/01/22 Status: Ordered Dexcom G6 sensors Dexcom G6 sensors, To check BS 4x daily, Supply, See instructions, # 6 EA, 0 Refill(s), Pharmacy: [facility] [address] Start Date: 11/24/22 Status: Ordered Diflucan 150 mg oral tablet 150 mg = 1 tab, Oral, Once, Can repeat in 3 days if symptoms persist, # 2 tab, 0 Refill(s), Pharmacy: [facility] [address], 150, cm, 11/18/22 19:16:00 EST, Height/Length Dosing, 127, kg, 11/18/22 19:16:00 EST, Weight Dosing Start Date: 11/21/22 Status: Ordered ergocalciferol 1.25 mg (50,000 intl units) oral capsule 50,000 IntlUnit = 1 cap, Oral, every week Start Date: 03/02/22 Status: Ordered fenofibrate 30 mg oral capsule 30 mg = 1 cap, Oral, Daily, # 90 cap, 3 Refill(s), Pharmacy: [facility] [address], 150, cm, 10/27/22 6:33:00 EST, Height/Length Dosing, 127, kg, 10/27/22 6:33:00 EST, Weight Dosing Start Date: 10/27/22 Status: Ordered fenofibrate 40 mg oral tablet 40 mg = 1 tab, Oral, Daily, # 30 tab, 0 Refill(s), Pharmacy: [facility] [address], 150, cm, 10/27/22 6:33:00 EST, Height/Length Dosing, [...] dose., # 90 tab, 3 Refill(s), Pharmacy: [facility], 150, cm, 10/27/22 6:33:00 EST, Height/Length D... Start Date: 10/27/22 Status: Ordered levothyroxine 125 mcg (0.125 mg) oral tablet 125 mcg = 1 tab, Oral, Daily, Take one tablet by mouth with water a half hour before eating or taking any other medication. Take with 100 mcg dose., # 90 tab, 3 Refill(s), Pharmacy: [facility], 150, cm, 10/27/22 6:33:00 EST, Height/Length D... Start Date: 10/27/22 Status: Ordered lisinopril 10 mg oral tablet 10 mg = 1 tab, Oral, Daily, for 90 days- dose change 10/20/2021, # 90 tab, 3 Refill(s), Pharmacy: [facility], 150, cm, 08/09/22 1:15:00 EST, Height/Length Dosing, 127.01, kg, 08/09/22 1:15:00 EST, Weight Dosing Start Date: 10/05/22 Status: Ordered multivitamin adult, oral tablet 1 tab, Oral, Daily, # 90 tab, 0 Refill(s), other reason (Rx) Start Date: 03/24/22 Status: Ordered ONETOUCH VERIO FLEX KIT ONETOUCH VERIO FLEX KIT, 1 each by [facility]. (non drug: combo route) route 4 times daily. Start Date: 03/02/22 Status: Ordered ONETOUCH VERIO MARLENE ONETOUCH VERIO MARLENE, Test blood glucose withone new test strip 4 times daily Start Date: 03/02/22 Status: Ordered predniSONE 20 mg oral tablet 40 mg = 2 tab, Oral, Daily, # 10 tab, 0 Refill(s), Pharmacy: [facility], 150, cm, 11/18/22 19:16:00 EST, Height/Length Dosing, 127, kg, 11/18/22 19:16:00 EST, Weight Dosing Start Date: 11/21/22 Stop Date: 11/26/22 Status: Ordered torsemide 20 mg oral tablet 1 tab, Oral, TID, PRN IF NEEDED, # 90 tab, 1 Refill(s), Pharmacy: [facility], 150, cm, 10/27/22 6:33:00 [...] hr, # 30 tab, 0 Refill(s), Pharmacy: [facility], 150, cm, :18:00 EDT, [...] tobacco user T obacco Use:. Sex Female Pulmonary function study * Kimberly Borrego: PERFORM Event Display: Pulmonary Function Studies Authored Date: [id number] Electronically Signed on 11/28/22 01:05 PM Kimberly Borrego Electronically Signed on 11/29/22 07:41 AM Jumana Ball Patient Care team information Care Team Personnel Name: Jamila Archer MD Position: Physician Member Role: Informed Provider Address: Address: [place] [address] [place] Name: Shila Krueger Position: Ambulatory - RN/LINE PERSON ([facility]) Member Role: Recreational Counselor Care Team Related Persons Name: PATHAKEMILIO MCINTYRE Address: Home [address] [facility] [address] [place], [phone] Name: ELLIS GRAMAJO Address: Home [address] [place], [phone]
--- OUTSIDE RECORDS SUMMARY | 2024-02-29 19:11 | XMS_ITS | Continuity of Care Document ---
Author Name Unknown Organization [facility] Address [address] [place] [address] Care Team Providers Care Line And Frame Poler Name Role Phone Jamila Archer Primary Care Physician [phone] Encounter [facility] [id number] Date(s): 12/15/23 - 12/15/23 [facility] [address] [place] [address] Encounter Diagnosis Otitis media(Discharge Diagnosis) - 12/15/23 Discharge Disposition: Home or Self Care Attending Physician: Wilbur Harry MD Admitting Physician: Wilbur Harry MD Allergies, Adverse Reactions, Alerts Substance Reaction Severity Status morphine Unknown Active oxyCODONE 1 Unknown Active rOPINIRole Severe Active 1repotrs feeling loopy Assessment and Plan Extracted from: Title:ED Provider Note Author:Carmen Wilson MD Date:12/15/23 Assessment/Plan 1.??Otitis media??H66.90 ??Will place patient on Augmentin and 75 mg 1 tablet twice a day for 7 days??patient with her type 1 diabetes has??history of yeast infections with antibiotics so Diflucan 100 mg a day??for 7 days is sent to the pharmacy and??the prescription for cetirizine is sent to the patient at patient's request patient is aware that this will not be covered by??insurance. Ordered: amoxicillin-clavulanate 875 mg-125 mg oral tablet, 1 tab, Oral, every 12 hr, X 7 days, # 14 tab, 0 Refill(s), 12/22/23 13:55:00 EDT, Pharmacy: [facility], 149, cm, 12/10/23 11:24:00 EDT, Height, 136.08, kg, 12/10/23 11:26:00 EDT, Weight Dosing cetirizine 10 mg oral tablet, 10 mg = 1 tab, Oral, Daily, # 30 tab, 6 Refill(s), 07/12/25 13:55:00 EST, Pharmacy: [facility], 149, cm, 12/10/23 11:24:00 EDT, Height, 136.08, kg, 12/10/23 11:26:00 EDT, Weight Dosing Diflucan 100 mg oral tablet, 100 mg = 1 tab, Oral, Daily, # 7 tab, 0 Refill(s), Pharmacy: [facility], 149, cm, 12/10/23 11:24:00 EDT, Height, 136.08, kg, 12/10/23 11:26:00 EDT, Weight Dosing Discharge Patient, 12/15/23 13:54:00 EDT, Home Independently, Constant Indicator ?? Patient Education Otitis Media, Adult Follow Up With When Contact Information Arpit Muñoz MD Within 1 to 2 weeks [facility]ology [address] [facility] [place] [address] ?? Additional Instructions: Follow up with primary care provider Within 1 to 2 weeks Additional Instructions: Extracted from: Title:Clinical Document Author:Clarisse Mcclelland te:12/15/23 Diagnosis: 1. Otitis media Comment: Diagnosis: Ear pain Comment: Future Appointments Appointment Date:12/18/2023 03:30:00 PM Scheduled Provider:Shila Krueger Location:[facility] Appointment Type:Care Coordination Follow-Up 45 ([facility]) Appointment Date:12/25/2023 04:30:00 PM Scheduled Provider:Shila Krueger Location:[facility] Appointment Type:Care Coordination Follow-Up 60 ([facility]) Appointment Date:01/01/2024 04:30:00 PM Scheduled Provider:Shila Krueger Location:[facility] Appointment Type:Care Coordination Follow-Up 60 ([facility]) [...] wheezing, # 8.5 g, 3 Refill(s), Pharmacy: [facility], 149, cm, 11/02/23 8:54:00 EST, Height, 137.5, kg, 10/31/23 23:35:00 EST, Weight Dosing Start Date: 11/07/23 Status: Ordered allopurinol 100 mg oral tablet 100 mg = 1 tab, Oral, Daily, # 90 tab, 0 Refill(s), Pharmacy: [facility], 149, cm, 10/13/23 16:49:00 EST, Height, 137.15, kg, 10/23/23 9:18:00 EST, Weight Dosing Start Date: 10/23/23 Status: Ordered amoxicillin-clavulanate 875 mg-125 mg oral tablet 1 tab, Oral, every 12 hr, X 7 days, # 14 tab, 0 Refill(s), 12/22/23 12:55:00 PM CDT, Pharmacy: [facility], 149, cm, 12/10/23 11:24:00 EDT, Height, 136.08, kg, 12/10/23 11:26:00 EDT, Weight Dosing Start Date: 12/15/23 Stop Date: 12/22/23 Status: Ordered aspirin 81 mg oral capsule 81 mg = 1 cap, Oral, every 24 hr, # 90 cap, 4 Refill(s), Pharmacy: [place] [address], 149.86, cm, 11/27/23 8:07:00 EDT, Height, 136.08, kg, 11/27/23 8:15:00 EDT, Weight Dosing Start Date: 11/27/23 Status: Ordered atorvastatin 40 mg oral tablet 40 mg = 1 tab, Oral, Daily, # 90 tab, 3 Refill(s), Pharmacy: [place] [address], 149, cm, 11/02/23 8:54:00 EST, Height, 137.5, kg, 10/31/23 23:35:00 EST, Weight Dosing Start Date: 11/07/23 Status: Ordered B-D UF III SHORT PEN NEED MIS B-D UF III SHORT PEN NEED MIS, Use one new pen needle for each insulin injection 5 to 7 times per day as directed in case of pump malfunction, Supply, See instructions, # 500 EA, 0 Refill(s), Pharmacy: [place] [address] Start Date: 09/08/22 Status: Ordered cetirizine 10 mg oral tablet 1 tab, Oral, BID, # 60 tab, 0 Refill(s), Pharmacy: [place] [facility] [address], 149, cm, 07/08/23 18:54:00 EDT, Height/Length Dosing, 133.2, kg, 07/25/23 10:54:00 EST, Weight Dosing Start Date: 09/12/23 Status: Ordered cetirizine 10 mg oral tablet 10 mg = 1 tab, Oral, Daily, # 30 tab, 6 Refill(s), 07/12/25 12:55:00 PM NURSE LDR, Pharmacy: [place] [facility] [address], 149, cm, 12/10/23 11:24:00 EDT, Height, 136.08, kg, 12/10/23 11:26:00 EDT, Weight Dosing Start Date: 12/15/23 Stop Date: 07/12/25 Status: Ordered Dexcom CGM- change q10 days Dexcom CGM- change q10 days, Supply, See instructions, # 1 EA, 0 Refill(s) Start Date: 10/31/23 Status: Ordered Diflucan 100 mg oral tablet 100 mg = 1 tab, Oral, Daily, # 7 tab, 0 Refill(s), Pharmacy: [facility], 149, cm, 12/10/23 11:24:00 EDT, Height, 136.08, kg, 12/10/23 11:26:00 EDT, Weight Dosing Start Date: 12/15/23 Stop Date: 12/22/23 Status: Ordered elderberry 350 mg, Oral, Daily, [...] higher, # 15 mL, 2 Refill(s), Pharmacy: [facility], 149, cm, 11/02/23 8:54:00 [...] sites, # 4 EA, 0 Refill(s), Pharmacy: [facility], 149, cm, 11/02/23 8:54:00 EST, Height, 137.5, kg, 10/31/23 23:35:00 EST, Weight Dosing Start Date: 11/07/23 Status: Ordered Mounjaro 2.5 mg/0.5 mL subcutaneous solution 2.5 mg =, Subcutaneous, every week, rotate injection sites, # 4 EA, 0 Refill(s), Pharmacy: [facility], 149, cm, 10/13/23 16:49:00 EST, Height, 133, kg, 10/13/23 16:54:00 EST, Weight Dosing Start Date: 10/15/23 Status: Ordered ONETOUCH VERIO FLEX KIT ONETOUCH VERIO FLEX KIT, 1 each by [facility]. (non drug: combo route) route 4 times daily. Start Date: 03/02/22 Status: Ordered ONETOUCH VERIO MARLENE ONETOUCH VERIO MARLNEE, Test blood glucose withone new test strip [...] BID, # 6 cap, 0 Refill(s), Pharmacy: [facility], 149, cm, 11/02/23 8:54:00 EST, Height, 137.5, kg, 10/31/23 23:35:00 EST, Weight Dosing Start Date: 11/02/23 Stop Date: 11/05/23 Status: Ordered Toprol-XL 25 mg oral tablet, extended release 25 mg = 1 tab, Oral, Daily, # 90 tab, 4 Refill(s), Pharmacy: [facility], 149.86, cm, 11/27/23 8:07:00 EDT, Height, 136.08, kg, 11/27/23 8:15:00 EDT, Weight Dosing Start Date: 11/27/23 Status: Ordered torsemide 20 mg oral tablet 3 tab, Oral, BID, TWICE DAIY., # 180 tab, 3 Refill(s), Pharmacy: [facility], 149, cm, 07/08/23 [...] Temperature Temporal Artery [36-38 Deg C ] 36.0 Deg C (12/15/23 1:17 PM) Heart Rate Monitored [60-100 bpm] 102 bp m *HI* (12/15/23 1:17 PM) Respiratory Rate [12-24 br/min] 16 br/mi n (12/15/23 1:17 PM) Blood Pressure [90-140/60-90 mmHg] 154/8 5mmHg *HI* (12/15/23 1:17 PM) Mean Arterial Pressure, Cuff [65-140 mmH g] 108 mmHg (12/15/23 1:17 PM) Weight Estimated 136.08 kg (12/15/23 1:17 PM) Body Mass Index Estimated 61.29 kg/m2 (12/15/23 1:17 PM) Height/Length Estimated 149 cm (12/15/23 1:17 PM) Social History Social History Type Response Tobacco Never tobacco user T obacco Use:. Sex Female Hospital Discharge Instructions Patient Education 12/15/2023 12:57:06 Otitis Media, Adult Otitis Media, Adult Otitis media occurs when there is inflammation and fluid in the middle ear with signs and symptoms of an acute infection. The middle ear is a part of the ear that contains bones for hearing as well as air that helps send sounds to the brain. When infected fluid builds up in this space, it causes pressure and can lead to an ear infection. The eustachian tube connects the middle ear to the back of the nose (nasopharynx) and normally allows air into the middle ear. If the eustachian tube becomes blocked, fluid can build up and become infected. What are the causes? This condition is caused by a blockage in the eustachian tube. This can be caused by mucus or by swelling of the tube. Problems that can cause a blockage include: ??? A cold or other upper respiratory infection. ??? Allergies. ??? An irritant, such as tobacco smoke. ??? Enlarged adenoids. The adenoids are areas of soft tissue located high in the back of the throat, behind the nose and the roof of the mouth. They are part of the body's defense system (immune system). ??? A mass in the nasopharynx. ??? Damage to the ear caused by pressure changes (barotrauma). What increases the risk? You are more likely to develop this condition if you: ??? Smoke or are exposed to tobacco smoke. ??? Have an opening in the roof of your mouth (cleft palate). ??? Have gastroesophageal reflux. ??? Have an immune system disorder. What are the signs or symptoms? Symptoms of this condition include: ??? Ear pain. ??? Fever. ??? Decreased hearing. ??? Tiredness (lethargy). ??? Fluid leaking from the ear, if the eardrum is ruptured or has burst. ??? Ringing in the ear. How is this diagnosed? This condition is diagnosed with a physical exam. During the exam, your health care provider will use an instrument called an otoscope to look in your ear and check for redness, swelling, and fluid. He or she will also ask about your symptoms. Your health care provider may also order tests, such as: ??? A pneumatic otoscopy. This is a test to check the movement of the eardrum. It is done by squeezing a small amount of air into the ear. ??? A tympanogram. This is a test that shows how well the eardrum moves in response to air pressurein the ear canal. It provides a graph for your health care provider to review. How is this treated? This condition can go away on its own within 3???5 days. But if the condition is caused by a bacterial infection and does not go away on its own, or if it keeps coming back, your health care providermay: ??? Prescribe antibiotic medicine to treat the infection. ??? Prescribe or recommend medicines to control pain. Follow these instructions at home: ??? Take [id number]-[id number] and prescription medicines only as told by your health care provider. ??? If you were prescribed an antibiotic medicine, take it as told by your health care provider. Donot stop taking the antibiotic even if you start to feel better. ??? Keep all follow-up visits. This is important. Contact a health care provider if: ??? You have bleeding from your nose. ??? There is a lump on your neck. ??? You are not feeling better in 5 days. ??? You feel worse instead of better. Get help right away if: ??? You have severe pain that is not controlled with medicine. ??? You have swelling, redness, or pain around your ear. ??? You have stiffness in your neck. ??? A part of your face is not moving (paralyzed). ??? The bone behind your ear (mastoid bone) is tender when you touch it. ??? You develop a severe headache. Summary ??? Otitis media is redness, soreness, and swelling of the middle ear, usually resulting in pain and decreased hearing. ??? This condition can go away on its own within 3???5 days. ??? If the problem does not go away in 3???5 days, your health care provider may give you medicinesto treat the infection. ??? If you were prescribed an antibiotic medicine, take it as told by your health care provider. ??? Follow all instructions that were given to you by your health care provider. This information is not intended to replace advice given to you by your health care provider. Make sure you discuss any questions you have with your health care provider. Document Revised: 12/05/2021 Document Reviewed: 12/05/2021 Elsevier Patient Education ?? 2022 [employer] Follow Up Care 12/15/2023 13:15:27 With:Arpit Muñoz MD Address: Otolaryngology [address] [place] [address] [place] [address]- When:1 to 2 weeks With:Follow up with primary care provider Address: When:1 to 2 weeks Physician Emergency department Note * Nikki Wilson MD: PERFORM Event Display: ED Note Physician Authored Date: [id number] MARIELOS MIRAMONTES :1995 Age:28 years Sex:Female Visit Date:12/15/2023 Primary Care Physician: Jamila Archer MD Basic Information Time Seen: Nikki Wilson MD / 12/15/2023 13:42 Chief Complaint pt c/o ear pressure in both ears, hx of ear infections. difficultly sleeping r/t pain. last dose ofmeds last night. History Of Present Illness: Patient reports that she has had some ear pain??worse in the left ear but both the ears are hurtingshe has a history of ear infections.?? Patient has type 1 diabetes.?? Patient says she has not had a referral yet for??ENT she did have??tubes in her ears as a child.?? No nasal discharge no significant sore throat no significant??cough??no nausea no vomiting. ??Patient reports a couple months ago she had a history of??C. difficile Review of Systems: see hpi for ros Physical Exam Vitals & Measurements T:??36.0?C ??(Temporal Artery)?? HR:??102??(Monitored)?? RR:??16?? BP:??154/85?? SpO2:??99%?? HT:??149??cm?? WT:??136.08??kg??(Estimated)?? BMI:??61.29?? Pain Score:??5?? O2 Therapy:??Room air?? General: Alert and oriented, well nourished,?No??acute distress Eye: PER,?Normal??conjunctiva, No scleral icterus HENT: Normocephalic?Normal?? hearing??left tympanic membrane??erythematous bulging??right??slight fluid Respiratory:??Respiration??no distress??no increased work of breathing Chest: wall excursion wnl no abnormal movements no obvious deformities Musculoskeletal:?Normal?? range of motion and strength,?No??tenderness,?No??swelling Skin: Skin is warm, dry and pink,?No??rashes,?No??lesions Neurologic: Awake, alert and oriented X4 Psychiatric: Cooperative, appropriate mood and affect Medical Decision Making: For MDM please see under assessment and plan Procedure No Qualifying Data Assessment/Plan 1.??Otitis media??H66.90 ??Will place patient on Augmentin and 75 mg 1 tablet twice a day for 7 days??patient with her type 1 diabetes has??history of yeast infections with antibiotics so Diflucan 100 mg a day??for 7 days issent to the pharmacy and??the prescription for cetirizine is sent to the patient at patient's request patient is aware that this will not be covered by??insurance. Ordered: amoxicillin-clavulanate 875 mg-125 mg oral tablet, 1 tab, Oral, every 12 hr, X 7 days, # 14 tab, 0 Refill(s), 12/22/23 13:55:00 EDT, Pharmacy: [facility], 149, cm, 12/10/23 11:24:00 EDT, Height, 136.08, kg, 12/10/23 11:26:00 EDT, Weight Dosing cetirizine 10 mg oral tablet, 10 mg = 1 tab, Oral, Daily, # 30 tab, 6 Refill(s), 07/12/25 13:55:00 EST, Pharmacy: [facility], 149, cm, 12/10/23 11:24:00 EDT, Height, 136.08, kg, 12/10/23 11:26:00 EDT, Weight Dosing Diflucan 100 mg oral tablet, 100 mg = 1 tab, Oral, Daily, # 7 tab, 0 Refill(s), Pharmacy: [facility], 149, cm, 12/10/23 11:24:00 EDT, Height, 136.08, kg, 12/10/23 11:26:00 EDT, Weight Dosing Discharge Patient, 12/15/23 13:54:00 EDT, Home Independently, Constant Indicator ?? Patient Education Otitis Media, Adult Follow Up With When Contact Information Arpit Muñoz MD Within 1 to 2 weeks Otolaryngology [address] [facility] [place] [address]- Additional Instructions: Follow up with primary care provider Within 1 to 2 weeks Additional Instructions: Medication Reconciliation New Prescription amoxicillin-clavulanate (amoxicillin-clavulanate 875 mg-125 mg oral tablet)1 tab Oral (given by mouth) every 12 hours for 7 Days. Refills: 0. ?? fluconazole (Diflucan 100 mg oral tablet)1 tab Oral (given by mouth) every day for 7 Days. Refills:0. ?? Changed cetirizine (cetirizine 10 mg oral tablet)1 tab Oral (given by mouth) 2 times a day. Refills: 0. ?? cetirizine (cetirizine 10 mg oral tablet)1 tab Oral (given by mouth) every day. Refills: 6. ?? Unchanged albuterol (albuterol 90 mcg/inh aerosol [...] by mouth) every day. Refills: 3. ?? bifidobacterium-lactobacillus (Probiotic 10 Ultra Strength) ?? Durable Medical Equipment for Prescription (B-D [...] O2 Tank)2.5L pulse dose. Refills: 0. ?? [id number] Milligrams Oral (given by mouth) every day. [...] in hospital and was still hypoglycemic. ?? [id number] Micrograms Oral (given by mouth) every day. ?? lisinopril (lisinopril 5 mg oral tablet)1 tab Oral (given by mouth) every night at bedtime. ?? metoprolol (Toprol-XL 25 mg oral tablet, extended release)1 tab Oral (given by mouth) every day. Refills: 4. ?? oseltamivir (Tamiflu 75 mg oral capsule)1 Capsules Oral (given by mouth) 2 times a day for 3 Days. Refills: 0. ?? Other Prescription (ONETOUCH VERIO FLEX KIT)1 each by [facility]. [...] Refills: 3. Problem List/Past Medical History Ongoing DEAN (acute [...] movement disorder Peripheral edema Pneumonia Pulmonary hypertension Tachycardia Tension-type headache Thyroid nodule Type 1 diabetes Historical No qualifying data Procedure/Surgical History ???Due 10/2025 (10/31/2022)???ORIF - Open reduction and internal fixation of fracture (12/22/2020)???Adenoidectomy (09/10/2013)???Tonsillectomy (09/10/2003) Medication Administration Given acetaminophen, 1000 mg, Oral ibuprofen, 800 mg, Oral Allergies rOPINIRole morphine oxyCODONE Social [...] Father and Grandfather (P). Electronically Signed on 12/15/23 02:11 PM Nikki Wilson MD Emergency department Discharge instructions * Nikki Wilson MD: PERFORM Event Display: ED Discharge Information Authored Date: [id number] MARIELOS MIRAMONTES :1995 Age:28 years Sex:Female Visit Date:12/15/2023 Primary Care Physician: Jamila Archer MD Discharge Instructions We would like to thank you for allowing us to assist you with your healthcare needs. The following includes patient education materials and information regarding your injury/illness. Diagnosis from Today's Visit Otitis media Discharge Vitals Temperature??(Temporal Artery) 96.8 ??F (36.0 ??C) Heart Rate??(Monitored) 102 Respiratory Rate?? 16 Blood Pressure?? 154/85?? SpO2?? 99% Height?? 58.66 in (149 cm) Weight??(Estimated) 300.06 lb (136.08 kg) BMI?? 61.29 Allergies rOPINIRole morphine oxyCODONE What to Do Next Instructions from Your Care Team Take Augmentin??(amoxicillin/clavulanic) 875 mg 1 tablet twice a day for 7 days.?? Take Diflucan 100 mg/day??for itching??and discomfort??for a yeast infection.?? Continue with your??probiotic.?? Take cetirizine 10 mg/day??if covered by your insurance.?? Call ENT??Dr. Muñoz??office??[phone]??to schedule follow-up You Need to Schedule the Following Appointments Follow Up with??Arpit Muñoz MD When:??Within 1 to 2 weeks Where: [place] [address]- Follow Up with??Follow up with primary care provider When:??Within 1 to 2 weeks Upcoming Scheduled Appointments Sunday 3:30 PM EDT ?? With: Shila Krueger Where: [address] [address] Status: Confirmed Sunday 3:30 PM EDT ?? With: Sweetie uClver Where: [address] [phone] Status: Confirmed Sunday 4:30 PM EDT ?? With: Shila Krueger Where: [address] [phone] Status: Confirmed Sunday 4:30 PM EDT ?? With: Shila Krueger Where: [address] [phone] Status: Confirmed Sunday 9:20 AM EDT ?? With: Jaida Lamb DIGITAL IMAGING TECHNICIAN Where: [facility] [address] [place] [address] Status: Confirmed Sunday 12:30 PM EDT ?? With: Sully Singleton DIGITAL IMAGING TECHNICIAN Where: [facility] [address] [place] [address] Status: Confirmed You were treated today on [...] Much When Why Instructions Next Dose New amoxicillin-clavulanate (amoxicillin-clavulanate 875 mg-125 mg oral tablet) 1 tab Oral (given by mouth) Every 12 hours Otitis media Duration: 7 Days Pickup at [facility] New fluconazole (Diflucan 100 mg oral tablet) 1 tab Oral (given by mouth) Every day Otitis media Duration: 7 Days Pickup at [facility] Changed cetirizine (cetirizine 10 mg oral tablet) 1 tab Oral (given by mouth) Every day Otitis media Pickup at [facility] Changed cetirizine (cetirizine 10 mg oral tablet) 1 tab Oral (given by mouth) 2 times a day Unchanged albuterol (albuterol 90 mcg/ inh aerosol inhaler) 1 Puffs Inhale (breathe in) Every 6 hours as needed for as needed for wheezing Unchanged allopurinol (allopurinol 100 mg oral tablet) 1 tab Oral (given by mouth) Every day Unchanged ascorbic acid (Vitamin C 250 mg oral tablet) Unchanged aspirin (aspirin 81 mg oral capsule) 1 Capsules Oral (given by mouth) Every 24 hours Type 2 myocardial infarction Unchanged atorvastatin (atorvastatin 40 mg oral tablet) 1 tab Oral (given by mouth) Every day Unchanged bifidobacterium-lactobacillus (Probiotic 10 Ultra Strength) Unchanged Durable Medical Equipment for Prescription (B-D [...] by mouth) Every night at bedtime Unchanged metoprolol (Toprol-XL 25 mg oral tablet, extended release) 1 tab Oral (given by mouth) Every day Type 2 myocardial infarction Unchanged oseltamivir (Tamiflu 75 mg oral capsule) 1 Capsules Oral (given by mouth) 2 times a day Duration: 3 Days Unchanged Other Prescription (ONETOUCH VERIO FLEX KIT) 1 each by [facility]. (non drug: combo route) route 4 times daily. ?? Unchanged Other Prescription (ONETOUCH VERIO MARLENE) Test blood glucose withone new test strip 4 times daily ?? Unchanged Other Prescription ([employer] Probiotic) 1 Oral (given by mouth) Every day Unchanged tirzepatide (Mounjaro 2.5 mg/ 0.5 mL subcutaneous solution) 2.5 Milligrams Subcutaneous (under the skin) Every week Morbid obesity rotate injection sites ?? Unchanged tirzepatide (Mounjaro 2.5 mg/ 0.5 mL subcutaneous solution) 2.5 Milligrams Subcutaneous (under the skin) Every week rotate injection sites ?? Unchanged torsemide (torsemide 20 mg oral tablet) 3 tab Oral (given by mouth) 2 times a day TWICE ??DAIY. ?? Pharmacy Information [facility]: [address] [id number] [phone] Education Materials Otitis Media, Adult Otitis media occurs when there is inflammation and fluid in the middle ear with signs and symptoms of an acute infection. The middle ear is a part of the ear that contains bones for hearing as well as air that helps send sounds to the brain. When infected fluid builds up in this space, it causes pressure and can lead to an ear infection. The eustachian tube connects the middle ear to the back of the nose (nasopharynx) and normally allows air into the middle ear. If the eustachian tube becomes blocked, fluid can build up and become infected. What are the causes? This condition is caused by a blockage in the eustachian tube. This can be caused by mucus or by swelling of the tube. Problems that can cause a blockage include: ? A cold or other upper respiratory infection. ? Allergies. ? An irritant, such as tobacco smoke. ? Enlarged adenoids. The adenoids are areas of soft tissue located high in the back of the throat, behind the nose and the roof of the mouth. They are part of the body's defense system (immune system). ? A mass in the nasopharynx. ? Damage to the ear caused by pressure changes (barotrauma). What increases the risk? You are more likely to develop this condition if you: ? Smoke or are exposed to tobacco smoke. ? Have an opening in the roof of your mouth (cleft palate). ? Have gastroesophageal reflux. ? Have an immune system disorder. What are the signs or symptoms? Symptoms of this condition include: ? Ear pain. ? Fever. ? Decreased hearing. ? Tiredness (lethargy). ? Fluid leaking from the ear, if the eardrum is ruptured or has burst. ? Ringing in the ear. How is this diagnosed? This condition is diagnosed with a physical exam. During the exam, your health care provider will use an instrument called an otoscope to look in your ear and check for redness, swelling, and fluid. He or she will also ask about your symptoms. Your health care provider may also order tests, such as: ? A pneumatic otoscopy. This is a test to check the movement of the eardrum. It is done by squeezing a small amount of air into the ear. ? A tympanogram. This is a test that shows how well the eardrum moves in response to air pressure in the ear canal. It provides a graph for your health care provider to review. How is this treated? This condition can go away on its own within 3???5 days. But if the condition is caused by a bacterial infection and does not go away on its own, or if it keeps coming back, your health care providermay: ? Prescribe antibiotic medicine to treat the infection. ? Prescribe or recommend medicines to control pain. Follow these instructions at home: ? Take csdc-siu-krbxcuy and prescription medicines only as told by your health care provider. ? If you were prescribed an antibiotic medicine, take it as told by your health care provider. Do notstop taking the antibiotic even if you start to feel better. ? Keep all follow-up visits. This is important. Contact a health care provider if: ? You have bleeding from your nose. ? There is a lump on your neck. ? You are not feeling better in 5 days. ? You feel worse instead of better. Get help right away if: ? You have severe pain that is not controlled with medicine. ? You have swelling, redness, or pain around your ear. ? You have stiffness in your neck. ? A part of your face is not moving (paralyzed). ? The bone behind your ear (mastoid bone) is tender when you touch it. ? You develop a severe headache. Summary ? Otitis media is redness, soreness, and swelling of the middle ear, usually resulting in pain and decreased hearing. ? This condition can go away on its own within 3???5 days. ? If the problem does not go away in 3???5 days, your health care provider may give you medicines to treat the infection. ? If you were prescribed an antibiotic medicine, take it as told by your health care provider. ? Follow all instructions that were given to you by your health care provider. This information is not intended to replace advice given to you by your health care provider. Make sure you discuss any questions you have with your health care provider. Document Revised: 12/05/2021 Document Reviewed: 12/05/2021 [employer] Patient Education ?? 2022 [employer] Patient/Windows Systems Engineer Signature Patient Name:KULWINDER MARIELOS M I have received this information and my questions have been answered. Patient/Windows Systems Engineer Name: Patient/Windows Systems Engineer Signature: Relationship to Patient: Witness Name/Signature: Date: Electronically Signed on: 12/15/2023 13:59 EDTSigned by:AMS Discharge summary * Clarisse Mcclelland: PERFORM Event Display: Discharge Note Authored Date: * Clarisse Mcclelland: PERFORM Event Display: Discharge Note Authored Date: Diagnosis: 1. Otitis media Comment: Diagnosis: Ear pain Comment: Electronically Signed on 12/15/23 02:05 PM Clarisse Mcclelland Patient Care team information Care Team Personnel Name: Jamila Archer MD Position: Physician Member Role: Informed Provider Address: Address: [address] [place] [address] [place] [address]- [place] Name: Shila Krueger Position: Ambulatory - RN/CUSTOMER CARE AGENT ([facility]) Member Role: Marketing Planning Manager Care Team Related Persons Name: EMILIO PATHAK Address: Home [address] [facility] [address] [facility] [phone] Name: ELLIS GRAMAJO Address: Home [address] [place], [phone]
--- OUTSIDE RECORDS SUMMARY | 2024-02-29 19:11 | XMS_ITS | Continuity of Care Document ---
Author Name Unknown Organization [facility] Address [address] [place] [address] Care Team Providers Care Transportation Job Titles Name Role Phone Jamila Archer Primary Care Physician Encounter [facility] Date(s): 11/18/22 - 11/18/[address] [address] Discharge Disposition: Home or Self Care Attending Physician: Matt Mccord MD Admitting Physician: Matt Mccord MD Allergies, Adverse Reactions, Alerts Substance Reaction Severity Status morphine Unknown Active rOPINIRole Severe Active Assessment and Plan Future Appointments Future Scheduled Tests Laboratory* SARS-CoV-2 (COVID-19)/Flu/RSV ([facility]) 08/21/22 Radiology* US Head/Neck Soft Tissue 11/07/22 Functional Status 11/18/22 Family Member Travel History No recent t [...] instructions, # 500 EA, 0 Refill(s), Pharmacy: [facility] [id number] Start Date: 09/08/22 Status: Ordered cephalexin 500 mg oral capsule 500 mg = 1 cap, Oral, QID, X 10 days, # 40 cap, 0 Refill(s), 11/28/22 19:42:00 EDT, Pharmacy: [facility] [id number], 150, cm, 11/18/22 19:16:00 EST, Height/Length Dosing, 127, kg, 11/18/22 19:16:00 EST, Weight Dosing Start Date: 11/18/22 Stop Date: 11/28/22 Status: Ordered Dexcom G6 sensors Dexcom G6 sensors, To check BS 4x daily, Supply, See instructions, # 6 EA, 0 Refill(s), Pharmacy: [facility] [id number] Start Date: 11/07/22 Status: Ordered ergocalciferol 1.25 mg (50,000 intl units) oral capsule 50,000 IntlUnit = 1 cap, Oral, every week Start Date: 03/02/22 Status: Ordered fenofibrate 30 mg oral capsule 30 mg = 1 cap, Oral, Daily, # 90 cap, 3 Refill(s), Pharmacy: [facility] [id number], 150, cm, 10/27/22 6:33:00 EST, Height/Length Dosing, 127, kg, 10/27/22 6:33:00 EST, Weight Dosing Start Date: 10/27/22 Status: Ordered fenofibrate 40 mg oral tablet 40 mg = 1 tab, Oral, Daily, # 30 tab, 0 Refill(s), Pharmacy: [facility] [id number], 150, cm, 10/27/22 6:33:00 EST, Height/Length Dosing, [...] dose., # 90 tab, 3 Refill(s), Pharmacy: [id number], 150, cm, 10/27/22 6:33:00 EST, Height/Length D... Start Date: 10/27/22 Status: Ordered levothyroxine 125 mcg (0.125 mg) oral tablet 125 mcg = 1 tab, Oral, Daily, Take one tablet by mouth with water a half hour before eating or taking any other medication. Take with 100 mcg dose., # 90 tab, 3 Refill(s), Pharmacy: [id number], 150, cm, 10/27/22 6:33:00 EST, Height/Length D... Start Date: 10/27/22 Status: Ordered lisinopril 10 mg oral tablet 10 mg = 1 tab, Oral, Daily, for 90 days- dose change 10/20/2021, # 90 tab, 3 Refill(s), Pharmacy: [facility], 150, cm, 08/09/22 1:15:00 EST, Height/Length Dosing, 127.01, kg, 08/09/22 1:15:00 EST, Weight Dosing Start Date: 10/05/22 Status: Ordered multivitamin adult, oral tablet 1 tab, Oral, Daily, # 90 tab, 0 Refill(s), other reason (Rx) Start Date: 03/24/22 Status: Ordered ONETOUCH VERIO FLEX KIT ONETOUCH VERIO FLEX KIT, 1 each by [facility]. (non drug: combo route) route 4 times daily. Start Date: 03/02/22 Status: Ordered ONETOUCH VERIO MARLENE ONETOUCH VERIO MARLENE, Test blood glucose withone new test strip 4 times daily Start Date: 03/02/22 Status: Ordered torsemide 20 mg oral tablet 1 tab, Oral, TID, PRN IF NEEDED, # 90 tab, 1 Refill(s), Pharmacy: [id number], 150, cm, 10/27/22 6:33:00 [...] hr, # 30 tab, 0 Refill(s), Pharmacy: [facility], 150, cm, 226:18:00 [...] Temperature Temporal Artery [36-38 Deg C ] 37 Deg C (11/18/22 7:06 PM) Peripheral Pulse Rate [60-100 bpm] 106 b pm *HI* (11/18/22 7:06 PM) Respiratory Rate [12-24 br/min] 24 br/mi n (11/18/22 7:06 PM) Blood Pressure [90-140/60-90 mmHg] 143/8 6mmHg *HI* (11/18/22 7:06 PM) Weight Dosing 127.00 kg (11/18/22 7:16 PM) Weight Estimated 127.00 kg (11/18/22 7:06 PM) Height/Length Dosing 150.000 cm (11/18/22 7:16 PM) Height/Length Estimated 150.000 cm (11/18/22 7:06 PM) Social History Social History Type Response Tobacco Never tobacco user T obacco Use:. Sex Female Physician Emergency department Note * Matt Mccord MD: PERFORM Event Display: ED Note Physician Authored Date: [id number] NIKUNJSAUL PRATTDiana Rangel :1995 Age:27 years Sex:Female Visit Date:11/18/2022 Primary Care Physician: Jamila Archer MD HPI 27-year-old female with history of HTN, DM and a BMI of 57.2 presents for evaluation of left calf tenderness, warmth, and swelling that is been gradually progressive since a slip and fall approximately one week ago.??Patient remains amatory. No systemic symptoms. Warmth apparently began today.??ROSwith no recent constitutional symptoms. ?? Exam HR 16, RR 24, BP 143/86, T 37.0??C, SaO2 97% on room air.?? Gen: Pleasant, nontoxic-appearing, resting comfortably. HEENT: NC, AT, PEERL, EOMI. Resp: Unlabored respirations with a normal work of breathing. Card: Extremities warm and well perfused.?? GI: Non-distended. : Deferred MSK: left medial mid through the distal calf (terminating approximately 10 cm proximal to the ankle) there is mild diffuse swelling, upper two thirds with faint ecchymosis, mid portion with faint erythema and warmth to touch. No fluctuance or crepitus. Vuune-ei-csig ultrasound with mild diffuse subcutaneous cobblestoning/edema, no gas, no focal fluid collections. Neuro:??alert and oriented?3, no facial asymmetry, vision and hearing WNL. Heme/Lymph: Deferred Skin: Normal color with no visible lesions (other than noted above). Psych: Mood and affect appropriate. ?? MDM Previous chart, nursing note, and vitals reviewed.?? A: 27-year-old female with history of HTN, DM and a BMI of 57.2 presents for evaluation of left calf tenderness, warmth, and swelling that is been gradually progressive since a slip and fall approximately one week ago. ?? DDx & Evaluation: history and exam consistent with muscle strain and bruising secondary to a fall, suspect mild superimposed cellulitis. Patient prescribed cephalexin, first dose given in the ER.Patient also notes a history of?yeast infections?with antibiotics, one dose PO 150 mg fluconazole prescribed for use as needed. No clinical features suggestive of DVT at the present time. No e vidence of abscess, erysipelas, necrotizing fasciitis. Patient discharged with PCP follow-up recommended. ?? Impression: contusion, cellulitis. Electronically Signed on 11/18/22 07:34 PM Matt Mccord MD Emergency department Discharge instructions * Matt Mccord MD: PERFORM Event Display: ED Discharge Information Authored Date: [id number] MARIELOS MIRAMONTES :1995 Age:27 years Sex:Female Visit Date:11/18/2022 Primary Care Physician: Jamila Archer MD Discharge Instructions We would like to thank you for allowing us to assist you with your healthcare needs. The following includes patient education materials and information regarding your injury/illness. ?? You were seen at [facility] for evaluation for evaluation of??warmth, tenderness, swelling, and pain of your left calf. The time of your evaluation your believed to have a bruise (contusion) along with a soft tissue infection of your skin called cellulitis. You have been prescribed cephalexin for treatment of your infection and you have been prescribed a dose of fluconazole that you may use as needed should you develop a yeast infection.??Please read and follow all of the instructions below. ?? Please follow up with your primary care physician??within 2-3 days for repeat evaluation of your leg injury as well as your asymptomatic hypertension. When calling for follow-up care, please make theoffice aware that this follow-up is from your recent emergency room visit.? Your care today was limited to identifying and treating emergent medical problems only. Many peoplehave subtle differences in their test results that require follow up with their outpatient physician(s) to correctly determine if this represents a normal variation or concerning abnormality with respect to your specific health.??The care given to you today was limited to identifying and treating emergent medical problems - you need to request a copy of all of your medical records from today's visit and follow up with your outpatient physician(s) to review both today's visit and your overall health. If you have any new symptoms or if you are at all concerned about your health please return immediately to the emergency department. ?? Prescriptions: If you are uninsured or have financial difficulties with filling your prescription(s), you may consider using a free pharmacy discount service such as [employer] ([employer] or [employer] ([employer]). These services allow you to search for a medication on your phone (or computer) and obtain a coupon that usually has a significant discount from the list shah at a pharmacy. Your physician does not have a financial relationship with either of these services. You may also wish to speak with your physician to determine if lower cost prescriptions are possible. ?? You were diagnosed with cellulitis. This is a bacterial infection of the skin. Symptoms are usually redness, swelling, and warmth in the affected area. Some people get a fever (temperature higher than 100.4??F / 38??C) with this infection. ?Cellulitis is treated with antibiotics and pain control.?Redness, swelling, warmth, and fever should start to get better after 1-2 days of treatment. Ifyou are not improving please see your primary care physician or return to this or the nearest emergency department. If you were directed during your exam or if you have any concerns about your infection please follow up promptly with your primary care physician or in an emergency department. ?If possible, outline the infection once every 24 hours and take a picture to show to your physician in case you need further treatment. ?? YOU SHOULD SEEK MEDICAL ATTENTION IMMEDIATELY, EITHER HERE OR AT THE NEAREST EMERGENCY DEPARTMENT, IF ANY OF THE FOLLOWING OCCURS: ?Redness spreads even with treatment. You can leny the infection area with a pen. This will helpwatch for improvement or spreading. ?Fever (temperature higher than 100.4??F / 38??C) does not go away or gets worse after 2-3 days of antibiotics. ?Unusual or increasing pain in the infected area. ?Lightheadedness. ?Feeling sicker at any time or not getting better as expected. ?? Cephalexin (Brand Name: Keflex) ?Take as directed on the prescription. ?Take the full prescribed course of medications. ?? SIDE EFFECTS: Diarrhea, dizziness, headache, or stomach upset may occur. If any of these effects persist or worsen, tell your doctor or pharmacist promptly. Tell your doctor immediately if any of these rare but very serious side effects occur: severe stomach/abdominal pain, persistent nausea/vomiting, yellowing eyes/skin, dark urine, change in the amount of urine, new signs of infection (e.g., fever, persistent sore throat), easy bruising/bleeding, mental/mood changes (e.g., agitation, confusion). This medication may rarely cause a severe intestinal condition (Clostridium difficile-associateddiarrhea) due to a resistant bacteria. This condition may occur during treatment or weeks to months after treatment has stopped. Tell your doctor immediately if you develop persistent diarrhea, abdominal or stomach pain/cramping, blood/mucus in your stool. Do not use anti-diarrhea products or narcotic pain medications if you have any of these symptoms because these products may make them worse. Use of this medication for prolonged or repeated periods may result in oral thrush or a new vaginal yeast infection. Contact your doctor if you notice white patches in your mouth, a change in vaginal discharge, or other new symptoms. A very serious allergic reaction to this drug is rare. However, seek immediate medical attention if you notice any symptoms of a serious allergic reaction, including: rash, itching/swelling (especially of the face/tongue/throat), severe dizziness, trouble breathing. This is not a complete list of possible side effects. If you notice other effects not listed above, contact your doctor or pharmacist. ?? PRECAUTIONS: Before taking cephalexin, tell your doctor or pharmacist if you are allergic to it; orto penicillins or other cephalosporins (e.g., cefpodoxime); or if you have any other allergies. This product may contain inactive ingredients, which can cause allergic reactions or other problems. Talk to your pharmacist for more details. Before using this medication, tell your doctor or pharmacist your medical history, especially of: kidney disease, stomach/intestinal disease (e.g., colitis). This drug may make you dizzy. Do not drive, use machinery, or do any activity that requires alertness until you are sure you can perform such activities safely. Limit alcoholic beverages. The liquid form of this product may contain sugar. Caution is advised if you have diabetes. Ask your doctor or pharmacist about using this product safely. Kidney function declines as you grow older. This medicationis removed by the kidneys. Therefore, older adults may be at greater risk for side effects while using this drug. During , this medication should be used only when clearly needed. Discuss the risks and benefits with your doctor. This medication passes into breast milk. Consult your doctor before breast-feeding.? DRUG INTERACTIONS: Your doctor or pharmacist may already be aware of any possible drug interactionsand may be monitoring you for them. Do not start, stop, or change the dosage of any medicine beforechecking with them first. Before using this medication, tell your doctor or pharmacist of all prescription and nonprescription/herbal products you may use, especially of: vaccines that contain live bacteria (e.g., typhoid, BCG), metformin, probenecid. This medication may decrease the effectiveness of combination-type control pills. This can result in . You may need to use an additional form of reliable control while using this medication. Consult your doctor or pharmacist for details. This medication may interfere with certain laboratory tests (including Manish' test, certain urine glucose tests), possibly causing false test results. Make sure laboratory personnel and all your doctors know you use this drug. This document does not contain all possible interactions. The refore, before using this product, tell your doctor or pharmacist of all the products you use. Keepa list of all your medications with you, and share the list with your doctor and pharmacist. High Blood Pressure (Hypertension) When you were in the emergency department you had an abnormally high blood pressure. High blood pressure can be without symptoms. However high blood pressure can lead to many medical problems including kidney disease, strokes, and heart attacks. Your blood pressure may have been elevated due to pain or the stress of being in the emergency department, however half of people with an elevated blood pressure in the emergency department have emt intermediate problems with high blood pressure.? Please see your primary care physician in 2-3 days for a repeat check of your blood pressure. This may help prevent many health serious problems in the future.? Please return to the emergency department if you develop any of the following: chest pain, shortness of breath, new or severe headache, changes in vision or hearing, weakness, or if you are otherwiseconcerned about your health. ?? Discharge Vitals Temperature??(Temporal Artery) 98.6 ??F (37 ??C) Heart Rate??(Peripheral) 106 Respiratory Rate?? 24 Blood Pressure?? 143/86?? Height?? 59.06 in (150.000 cm) Weight??(Estimated) 280.04 lb (127.00 kg) Allergies rOPINIRole morphine What to Do Next Upcoming Scheduled Appointments Sunday 7:30 AM EDT ?? Where: [facility] Cardiology Status: Confirmed Sunday 9:00 AM EDT ?? Where: [facility] Cardiopulmonary [address] [place] [address] Status: Confirmed Sunday 4:30 PM EDT ?? Sunday 3:20 PM EDT ?? Sunday 3:50 PM EST [...] Much When Why Instructions Next Dose New cephalexin (cephalexin 500 mg oral capsule) 1 Capsules Oral (given by mouth) 4 times a day Duration: 10 Days Pickup at [facility] Unchanged ascorbic acid (Vitamin C 500 mg oral tablet) 1 tab Oral (given by mouth) Every day Unchanged atorvastatin (atorvastatin 40 mg oral tablet) 1 tab Oral (given by mouth) Every day Unchanged cetirizine-pseudoephedrine (ZyrTEC-D 5 mg-120 mg oral [...] ?? Unchanged Durable Medical Equipment for Prescription ([employer]ium G6 sensors) See instructions To check BS 4x daily ?? Unchanged ergocalciferol (ergocalciferol 1.25 mg (50,000 intl units) oral capsule) 1 Capsules Oral (given by mouth) Every week Unchanged fenofibrate (fenofibrate 30 mg oral capsule) 1 Capsules Oral (given by mouth) Every day Hypertriglyceridemia Unchanged fenofibrate (fenofibrate 40 mg oral tablet) 1 tab Oral (given by mouth) Every day Hyperlipidemia Unchanged glucagon (Glucagon Emergency Kit for Low [...] (ONETOUCH VERIO FLEX KIT) 1 each by misc. (non drug: combo route) route 4 times daily. ?? Unchanged Other Prescription (ONETOUCH VERIO MARLENE) Test blood glucose withone new test strip 4 times daily ?? Unchanged torsemide (torsemide 20 mg oral tablet) 1 tab Oral (given by mouth) 3 times a day as needed for IF NEEDED Edema, peripheral Pharmacy Information [facility]: [address], [place] [phone] Tests Performed Medications and Immunizations Administered Given cephalexin, 500 mg, Oral Patient/Wire Frame Lampshade Maker Signature Patient Name:TRAYOTTOMARIELOS I have received this information and my questions have been answered. Patient/Wire Frame Lampshade Maker Name: Patient/Wire Frame Lampshade Maker Signature: Relationship to Patient: Witness Name/Signature: Date: Electronically Signed on: 11/18/2022 19:42 ESTSigned by:Angelika Emergency department Note * Amanda Nova: PERFORM Event Display: ED Notes Authored Date: Patient Care team information Care Team Personnel Name: Jamila Archer MD Position: Physician Member Role: Informed Provider Address: Address: [place] [address]- [place] Name: Shila Krueger Position: Ambulatory - RN/HAND SIGN WRITER (Michael) Member Role: Composite Science Teacher Name: Matt Mccord MD Position: Physician Member Role: Attending Physician Name: Olvin Lloyd RN Position: Nurse Member Role: ED Nurse Care Team Related Persons Name: BISHOP EMILIO Address: Home [address] [facility] [address] [place], [phone] Name: ELLIS GRAMAJO Address: [address] [place], [phone]
--- OUTSIDE RECORDS SUMMARY | 2024-02-29 19:12 | XMS_ITS | Continuity of Care Document ---
Author Name Unknown Organization [facility] Address [address] [place] [address] Care Team Providers Care Manufactured Buildings Repairer Name Role Phone Jamila Archer Primary Care Physician [phone] Encounter NCTY_DC Date(s): 10/13/23 - 10/16/23 [facility] [address] [place] [address] Encounter Diagnosis Morbid obesity(Discharge Diagnosis) - 10/14/23 Type 1 diabetes(Discharge Diagnosis) - 10/14/23 Asthma(Discharge Diagnosis) - 10/14/23 DEAN (acute kidney injury)(Discharge Diagnosis) - 10/14/23 C. difficile diarrhea(Discharge Diagnosis) - 10/15/23 Multifocal pneumonia(Discharge Diagnosis) - 10/13/23 HTN (hypertension)(Discharge Diagnosis) - 10/13/23 Acute hypoxic respiratory failure(Discharge Diagnosis) - 10/13/23 Hyperglycemia(Discharge Diagnosis) - 10/13/23 Transaminitis(Discharge Diagnosis) - 10/13/23 Type 2 myocardial infarction(Discharge Diagnosis) - 10/13/23 HLD (hyperlipidemia)(Discharge Diagnosis) - 10/14/23 Hypothyroidism(Discharge Diagnosis) - 10/14/23 Discharge Disposition: Home or Self Care Attending Physician: Hortensia Nieto MD Admitting Physician: Mahesh Pena MACHINE ASSEMBLER 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 1.??Multifocal pneumonia??J18.9 The patient is a 28-year-old female with a past medical history of morbid obesity insulin-dependent type 1 diabetes mellitus hypertension, obstructive sleep apnea, hyperlipidemia, recent C. difficile infection who presents to the emergency department on October 13, 2023 with a chief complaint of shortness of breath and weakness.?? CT scan done at the time of admission revealed multifocal bilateral pneumonia new patchy groundglass densities and consolidations bilaterally.?? Patient was also found to be hypoxic requiring O2 via mask and was admitted to the hospital for acute hypoxic respiratory failure secondary to bilateral multifocal pneumonia.?? Patient was started on IV antibiotics with cefepime, and azithromycin.?? Patient continued to improve during her hospitalization and was eventually weaned off of oxygen.?? She will be discharged on cefdinir and azithromycin to complete her antibiotic course. ?? Patient also did develop mild diarrhea a few days prior and did this did improve slightly however was still having loose stools and C. difficile testing was positive.?? Patient was started on p.o. vancomycin and her diarrhea has not resolved.?? She will be discharged with a longer course of vancomycin as this is her second recurrence and will also be with a taper. ?? She also had episodes of hyperglycemia and hypoglycemia after having her dose of insulin.?? She may need her insulin titrated however likely episodes of hypoglycemia or due to better compliance with diet while in the hospital. ?? She was also found to have elevated LFTs likely related to nonalcoholic steatohepatitis and fatty liver disease which appears to be chronic ongoing issue for her. ?? Patient also had mildly elevated troponin thought to be due to demand ischemia from hypoxia and multifocal pneumonia.?? This trended downwards and there were no EKG changes or chest pain consistent with type I NSTEMI. ?? Due to her multiple comorbidities and morbid obesity patient is at high risk of bounce back to the hospital and has had multiple recent hospitalizations for similar situations.?? For her other chronic medical conditions are all medications were continued.?? At the time of discharge patient was stable to return home.?? Patient to follow-up with her PCP within 1 to 2 weeks. ?? 2.??Type 2 myocardial infarction??I21.A1 ?? 3.??Acute hypoxic respiratory failure??J96.01 ?? 4.??Hyperglycemia??R73.9 ?? 5.??Transaminitis??R74.01 ?? 6.??HTN (hypertension)??I10 ?? 7.??HLD (hyperlipidemia)??E78.5 ?? 8.??Hypothyroidism??E03.9 ?? 9.??Morbid obesity??E66.01 Ordered: Mounjaro 2.5 mg/0.5 mL subcutaneous solution, 2.5 mg =, Subcutaneous, every week, rotate injection sites, # 4 EA, 0 Refill(s), Pharmacy: [id number], 149, cm, 10/13/23 16:49:00 EST, Height, 133, kg, 10/13/23 16:54:00 EST, Weight Dosing ?? 10.??Type 1 diabetes??E10.9 ?? 11.??Asthma??J45.909 ?? 12.??DEAN (acute kidney injury)??N17.9 ?? 13.??C. difficile diarrhea??A04.72 ?? Orders: azithromycin 250 mg oral tablet, 250 mg = 1 tab, Oral, Daily, # 2 tab, 0 Refill(s), Pharmacy: [facility] 4156, 149, cm, 10/13/23 16:49:00 EST, Height, 133, kg, 10/13/23 16:54:00 EST, Weight Dosing Tessalon Perles 100 mg oral capsule, 200 mg = 2 cap, Oral, TID, PRN cough, # 20 cap, 0 Refill(s), Pharmacy: [facility] 4156, 149, cm, 10/13/23 16:49:00 EST, Height, 133, kg, 10/13/23 16:54:00 EST, Weight Dosing cefdinir 300 mg oral capsule, 300 mg = 1 cap, Oral, every 12 hr, # 14 cap, 0 Refill(s), Pharmacy: [facility] 4156, 149, cm, 10/13/23 16:49:00 EST, Height, 133, kg, 10/13/23 16:54:00 EST, Weight Dosing torsemide, 60 mg = 3 tab, Oral, Tab, BID, First Dose: 10/15/23 21:00:00 EST vancomycin 125 mg oral capsule, See Instructions, 1 capsule 4 times daily for 10 additional days then 1 capsule 3 times daily for 5 days then 2 times daily for 5 days then 1 time daily., # 70 cap, 0 Refill(s), Pharmacy: [id number], 149, cm, 10/13/23 16:49:00 EST, Height,... Discharge Activity Restrictions, as tolerated Discharge Diet Instruction, Diabetic Diet Discharge Patient, 10/16/23 9:14:00 EST, Home Independently Follow Up With When Contact Information Jamila Archer MD Within 1 to [address] [place] [address] [place] [address]- Additional Instructions: Extracted from: Title:Progress/SOAP Note Author:Hortensia Nieto Date:10/15/23 1.??Multifocal pneumonia??J18.9 Acute hypoxic respiratory failure secondary to multifocal??bilateral pneumonia??likely mixed viral as well as superimposed bacterial pneumonia with groundglass opacities and denser consolidations as well.?? Respiratory failure is still present but??significantly improved and was able to be weaned off of oxygen??this morning??but still??hypoxic with ambulation??and short of breath. ??Continue cefepime and azithromycin.?? Continue with incentive spirometry.?? Discontinue scheduled DuoNebs and continue as needed. 2.??Type 2 myocardial infarction??I21.A1 ??Elevated troponin which have peaked and trending down??likely due to demand ischemia without EKG changes consistent with acute ischemia??or??chest pain.?? Demand ischemia secondary to acute hypoxic respiratory failure and??pneumonia. 3.??Acute hypoxic respiratory failure??J96.01 ??As above. 4.??Hyperglycemia??R73.9 ??Episodes of hypoglycemia and hyperglycemia??in the setting of insulin- dependent type 1 diabetes mellitus. ??Continue??home U-500 Humulin??but will decrease dose while in the hospital at 100 units before breakfast, 75 units??before lunch and 25 units before dinner.?? Will continue with insulin sliding scale as well. ??Chemstrips AC plus at bedtime. ??Diabetic diet. 5.??Transaminitis??R74.01 ??Transaminitis likely related to??underlying nonalcoholic??steatohepatitis??and fatty liver. ??Patient does not??lose a considerable amount of weight she is at high risk for??cirrhosis. ??Also possibility of worsening due to infection.?Continue to monitor. 6.??HTN (hypertension)??I10 7.??HLD (hyperlipidemia)??E78.5 ??Holding statin in light of transaminitis.? 8.??Hypothyroidism??E03.9 ??Continue levothyroxine 250 mcg p.o. daily. 9.??Morbid obesity??E66.01 ??Morbidly obese with a BMI of 60. ??Lifestyle modifications and weight loss. ??She was counseled on the importance of??weight loss.?? 10.??Type 1 diabetes??E10.9 ??As above. 11.??Asthma??J45.909 ??No wheezing currently does not appear to be in exacerbation.?? Albuterol nebulizer as needed. 12.??DEAN (acute kidney injury)??N17.9 ??Mild renal azotemia secondary to infection.?? Resolved with IV fluids. 13.??C. difficile diarrhea??A04.72 Patient with loose stools few days prior that was quite severe is improving but still liquid stools. ??C. difficile testing returned positive yesterday. ??Continue vancomycin??125 mg p.o.??4 times daily. ??Will need longer course with taper due to recurrence of C. difficile. Orders: ibuprofen, 400 mg = 2 tab, Oral, Tab, every 6 hr for 30 days, PRN pain, moderate, First Dose: 10/14/23 10:53:00 EST, Stop Date: 11/13/23 10:52:00 EST, Physician Stop, Routine DuoNeb, 3 mL, Inhale, Soln, QID RT, PRN shortness of breath, First Dose: 10/15/23 9:59:00 EST, Routine phenol 1.4% topical spray, 1 sprays, Topical, [place], every 2 hr, PRN sore throat, First Dose: 10/14/23 15:07:00 EST, Routine vancomycin, 125 mg = 1 cap, Oral, Cap, QID, Antibiotic Indication Clostridium diff infec (oral vanco only), First Dose: 10/14/23 16:00:00 EST, Routine Extracted from: Title:ED Provider Note Author:Deyvi Rodriguez MD Date:10/13/23 1.??Multifocal pneumonia??J1 8.9,??Bilateral pneumonia??J18.9 2.??Sepsis??A41.9 3.??Acute hypoxic respiratory failure??J96.01 4.??Hyperglycemia??R73.9 5.??Transaminitis??R74.01 6.??Type 2 myocardial infarction??I21.A1 Orders: Blood Culture, Blood, Stat collect, ST - Stat, 10/13/23 17:11:00 EST, Once, Nurse collect, Print Label Blood Culture, Blood, Stat collect, ST - Stat, 10/13/23 17:11:00 EST, Once, Nurse collect, Print Label Clostridium Difficile, Stool, Stat Collect, 10/13/23 17:14:00 EST, Once, Nurse collect, Print Label Communication Order, 10/13/23 17:11:00 EST Communication Order, 10/13/23 17:10:00 EST Fecal Bacterial Pathogens by PCR [facility], Stool, Stat Collect, 10/13/23 17:14:00 EST, Once, Nurse collect, Print Label Nursing Task, 10/13/23 17:11:00 EST, Stop date 10/13/23 17:11:00 EST Nursing Task, 10/13/23 17:10:00 EST, Stop date 10/13/23 17:10:00 EST PT/ INR, Blood, Stat, 10/13/23 21:35:00 EST, Once, Nurse collect PTT, Blood, Stat, 10/13/23 21:35:00 EST, Once, Nurse collect Extracted from: Title:H & P Author:Mahesh Pena Date:10/13/23 1.??Multifocal pneumonia??J1 8.9,??Bilateral pneumonia??J18.9 -??Admit as an inpatient -Cefepime 1 g IV every 8 hours -Azithromycin 500 mg IV daily -DuoNebs 4 times per day -Probiotic p.o. twice daily -Tylenol for fever headache -Zofran for nausea and vomiting -CBC, BMP, mag, Phos in the morning ? Ordered: PSO Admit to Inpatient, Semi-Private, Inpatient, Hortensia Nieto MD, 10/13/23 21:36:00 EST, 10/13/23 21:36:00 EST, 10/13/23 21:36:00 EST, 2 midnights or more but less than 96 hrs ?? 2.??Type 2 myocardial infarction??I21.A1 -??Maintain telemetry -Trend troponin -Heparin drip ? 3.??Acute hypoxic respiratory failure??J96.01 -??Oxygen to maintain saturations above 92% -DuoNebs 4 times per day ?? 4.??Hyperglycemia??R73.9 -??Diabetic diet -High-dose sliding scale with q. ACHS coverage ?? 5.??Transaminitis??R74.01 -chronic ?? 6.??HTN (hypertension)??I10 -??Blood pressure currently under control -Continue home medications -Monitor vitals per routine ? Orders: acetaminophen, 1,000 mg = 2 tab, Oral, Tab, every 6 hr, PRN fever, First Dose: 10/13/23 22:39:00 EST, Routine Mylanta, 15 mL, Oral, Susp, every 6 hr, PRN dyspepsia, First Dose: 10/13/23 22:39:00 EST, Routine azithromycin, 500 mg = 1 EA, IV Piggyback, Powder-Inj, every 24 hr, Antibiotic Indication Pneumonia- CAP, Administer over: 1 hr, First Dose: 10/14/23 21:00:00 EST, Routine, 250 mL/hr cefepime, 1 g = 1 EA, IV Piggyback, Powder-Inj, every 8 hr, Antibiotic Indication Pneumonia- CAP, Administer over: 0.5 hr, First Dose: 10/14/23 6:00:00 EST, Routine, 200 mL/hr GlucaGen, 1 mg, Intramuscular, Powder-Inj, As Directed, PRN low blood sugar, First Dose: 10/13/23 22:39:00 EST, Routine glucose 40% oral gel, 15 g = 37.5 mL, Oral, Gel, As Directed, PRN low blood sugar, First Dose: 10/13/23 22:39:00 EST, Routine glucose 40% oral gel, 30 g = 75 mL, Oral, Gel, As Directed, PRN low blood sugar, First Dose: 10/13/23 22:39:00 EST, Routine Dextrose 50% intravenous solution, 12.5 g 25 mL, IV Push, Soln-IV, As Directed, PRN low blood sugar, First Dose: 10/13/23 22:39:00 EST, Routine Dextrose 50% intravenous solution, 25 g 50 mL, IV Push, Soln-IV, As Directed, PRN low blood sugar, First Dose: 10/13/23 22:39:00 EST, Routine insulin lispro (HumaLog) correction- resistant, Resistant Scale, Subcutaneous, Soln, QID(ACHS), First Dose: 10/14/23 7:30:00 EST, Routine DuoNeb, 3 mL, Inhale, Soln, QID RT, First Dose: 10/13/23 22:39:00 EST, STAT lidocaine 1% injectable solution, 1 mg 0.1 mL, Intradermal, Soln, As Directed, PRN other (see comment), First Dose: 10/13/23 22:39:00 EST, Routine ondansetron, 4 mg = 2 mL, IV Push, Soln, every 6 hr, PRN nausea/vomiting, First Dose: 10/13/23 22:39:00 EST, Routine Florastor, 250 mg = 1 cap, Oral, Cap, BID, First Dose: 10/13/23 23:24:00 EST, Routine Normal Saline Flush, 10 mL, IV Push, Soln, every 12 hr (rojas), First Dose: 10/14/23 9:00:00 EST, Routine Sodium Chloride 0.9% 1,000 mL, Total Volume (mL): 1,000, 1,000 mL, Soln-IV, IV, 30 mL/hr, Start Date: 10/13/23 22:39:00 EST, 133 kg, Populate Charting Weight From Order, 2.35, m2 Ambulate as Tolerated, 10/13/23 22:39:00 EST, PRN Basic Metabolic Panel, Blood, Routine, 10/14/23 6:00:00 EST, every morning, for 3 days, Lab Collect Blood Glucose Monitoring POC, 10/13/23 22:39:00 EST, QID(ACHS), 10/14/23 7:30:00 EST Cardiac Monitoring, 10/13/23 22:39:00 EST, Telemetry CBC w/ Diff, Blood, Routine, 10/14/23 6:00:00 EST, every morning, for 3 days, Lab Collect Diet Order, 10/13/23 22:39:00 EST, Diabetic, Salt Restricted Magnesium Level, Blood, Routine, 10/14/23 6:00:00 EST, every morning, for 3 days, Lab Collect Notify Provider of Vital Signs, 10/13/23 22:39:00 EST, SpO2 < 92% on 2L O2 NC, T > 101.5, HR > 100, HR < 50, SBP greater than 160, SBP less than 90, DBP greater than 90, DBP less than 50, Resp Rate greater than 30, Resp Rate less than 8, Constant Indicator Nursing Task, 10/13/23 22:39:00 EST, Constant order Nursing Task, 10/13/23 22:39:00 EST, Constant order Oxygen Therapy, SpO2 goal 90% or greater, PRN, Cori Chatman Phosphorus Level, Blood, Routine, 10/14/23 6:00:00 EST, every morning, for 3 days, Lab Collect PTT, Blood, Timed Study, 10/14/23 3:45:00 EST, Once, Lab Collect Resuscitation Status, 10/13/23 22:39:00 EST, Full Code Troponin-I, Blood, Timed Study, 10/14/23 1:00:00 EST, every 6 hr, for 3 times, Lab Collect Vital Signs, 10/13/23 22:39:00 EST, Constant order, every 4 hrs Weight, 10/13/23 22:39:00 EST, every morning Home meds have been reviewed and reconciled in the medical record Addendum by Hortensia Nieto on October 14, 2023 08:41:18 EST Case was discussed with nurse practitioner and agree with assessment and plan as above. ??Admitted for acute hypoxic respiratory failure and sepsis secondary to multifocal??bilateral pneumonia.?? Future Appointments Diagnostic Tests Pending * CBC w/ Diff 10/14/23 * Basic Metabolic Panel 10/14/23 * Magnesium Level 10/14/23 * Phosphorus Level 10/14/23 * Comprehensive Metabolic Panel 10/15/23 Future Scheduled Tests Laboratory* Basic Metabolic Panel 05/29/23 * CBC w/ Diff 05/01/23 * Comprehensive Metabolic Panel 08/16/23 * Uric Acid 08/16/23 Radiology* XR Spine Lumbosacral 4+ Views 02/27/23 * NM Myocardial Rest Stress 2 Day Protocol 05/29/23 Functional Status 10/16/23 Breakfast Percent 100 10/16/23 Assistive Device None 10/16/23 Personal Care Provided Gown change, Linen change 10/15/23 Activity Status ADL Up to toilet 10/15/23 Living Environment No Living Environmen t Information Available Lives In Multilevel home Lives With Family Living Situation Home independently Home Barriers None 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, management development specialist, 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, Home management, Meal preparation Current Home Treatments Blood glucose mo nitoring, CPAP, Nebulizer treatments Home Equipment Blood glucose monito r, Com[employer] Professional Skilled Services Other: [facility] on[employer] Gambling Floor Supervisor Madhu Krueger Number of Stairs Inside 12 Number of Stairs Outside 2 10/13/23 Family Member Travel History No recent t [...] Oral, Daily Start Date: 03/02/22 Status: Ordered azithromycin 250 mg oral tablet 250 mg = 1 tab, Oral, Daily, # 2 tab, 0 Refill(s), Pharmacy: [id number], 149, cm, 10/13/23 16:49:00 EST, Height, 133, kg, 10/13/23 16:54:00 EST, Weight Dosing Start Date: 10/16/23 Stop Date: 10/18/23 Status: Ordered B-D UF III SHORT PEN NEED MIS B-D UF III SHORT PEN NEED MIS, Use one new pen needle for each insulin injection 5 to 7 times per day as directed in case of pump malfunction, Supply, See instructions, # 500 EA, 0 Refill(s), Pharmacy: [facility] [id number] Start Date: 09/08/22 Status: Ordered cefdinir 300 mg oral capsule 300 mg = 1 cap, Oral, every 12 hr, # 14 cap, 0 Refill(s), Pharmacy: [facility] [address], 149, cm,10/13/23 16:49:00 EST, Height, 133, kg, 10/13/23 16:54:00 EST, Weight Dosing Start Date: 10/16/23 Stop Date: 10/23/23 Status: Ordered cetirizine 10 mg oral tablet 1 tab, Oral, BID, # 60 tab, 0 Refill(s), Pharmacy: [facility] [address], 149, cm, 07/08/23 18:54:00 EDT, Height/Length Dosing, 133.2, kg, 07/25/23 10:54:00 EST, Weight Dosing Start Date: 09/12/23 Status: Ordered Dexcom G6 sensors Dexcom G6 sensors, To check BS 4x daily, Supply, See instructions, # 6 EA, 0 Refill(s), Pharmacy: [facility] [id number] Start Date: 11/24/22 Status: Ordered Dexcom Sensors G6, change every 10 days Dexcom Sensors G6, change every 10 days, Use for BS monitoring, Supply, See instructions, # 4 EA, 3Refill(s), Pharmacy: [facility] [id number] Start Date: 01/16/23 Status: Ordered Dexcom Transmitter, change every 3 months Dexcom Transmitter, change every 3 months, Use to monitor BS, Supply, See instructions, # 1 EA, 3 Refill(s), Pharmacy: [facility] [id number] Start Date: 04/11/23 Status: Ordered elderberry 350 mg, Oral, Daily, 0 Refill(s) Start Date: 07/08/23 Status: Ordered Glucagon Emergency Kit for Low Blood Sugar See Instructions, PRN low blood sugar, follow instructions per kit, 0 Refill(s) Start Date: 03/24/22 Status: Ordered HumaLOG Mina KwikPen 100 units/mL injectable solution 30 units =, Subcutaneous, every morning, with breakfast, 0 Refill(s) Start Date: 07/09/23 Status: Ordered HumuLIN R KwikPen (Concentrated) 500 units/mL subcutaneous solution See Instructions, 230 units of humilin 180 Units of humiln at lunch 100 Units of humilin at dinner,decrease dose and titrate as neccesary as half dose of insulin was given in hospital and was still hypoglycemic Start Date: 03/02/22 Status: Ordered levothyroxine 250 mcg =, Oral, Daily, 0 Refill(s) Start Date: 07/08/23 Status: Ordered lisinopril 5 mg oral tablet 5 mg = 1 tab, Oral, Daily, # 90 tab, 0 Refill(s) Start Date: 10/15/23 Status: Ordered Mounjaro 2.5 mg/0.5 mL subcutaneous solution 2.5 mg =, Subcutaneous, every week, rotate injection sites, # 4 EA, 0 Refill(s), Pharmacy: [id number], 149, cm, 10/13/23 16:49:00 EST, Height, 133, kg, 10/13/23 16:54:00 EST, Weight Dosing Start Date: 10/15/23 Status: Ordered ONETOUCH VERIO FLEX KIT ONETOUCH VERIO FLEX KIT, 1 each by [facility]. (non drug: combo route) route 4 times daily. Start Date: 03/02/22 Status: Ordered ONETOUCH VERIO MARLENE ONETOUCH VERIO MARLENE, Test blood glucose withone new test strip 4 times daily Start Date: 03/02/22 Status: Ordered Tessalon Perles 100 mg oral capsule 200 mg = 2 cap, Oral, TID, PRN cough, # 20 cap, 0 Refill(s), Pharmacy: [id number], 149, cm, 10/13/23 16:49:00 EST, Height, 133, kg, 10/13/23 16:54:00 EST, Weight Dosing Start Date: 10/16/23 Status: Ordered torsemide 20 mg oral tablet 3 tab, Oral, BID, TWICE DAIY., # 180 tab, 3 Refill(s), Pharmacy: [id number], 149, cm, 07/08/23 [...] daily., # 70 cap, 0 Refill(s), Pharmacy: [facility], 149, cm, 10/13/23 16:49:00 EST, Height, 133, kg, 10/13/23 16:54:00 EST, Weight Dosing Start Date: 10/16/23 Status: Ordered Mental Status 10/13/23 Eye Opening Response Roslyn Spontaneous ly Best Verbal Response Morena Oriented Best Motor Response Roslyn Obeys comman ds Roslyn Coma Score 15 Problem List Condition Confirmation [...] Results Laboratory List Name Date Glucose POCT 10/16/23 CBC w/ Diff 10/16/23 Comprehensive Metabolic Panel (CMP) Magnesium Level 10/16/23 Phosphorus Level 10/16/23 Automated Diff 10/16/23 Glucose POCT 10/16/23 Glucose POCT 10/16/23 Glucose Level 10/16/23 Automated Diff 10/15/23 CBC w/ Diff 10/15/23 Comprehensive Metabolic Panel (CMP) Magnesium Level 10/15/23 Phosphorus Level 10/15/23 GGT 10/14/23 Automated Diff 10/14/23 Basic Metabolic Panel 10/14/23 CBC w/ Diff 10/14/23 Hepatic Function Panel 10/14/23 Magnesium Level 10/14/23 Phosphorus Level 10/14/23 Troponin-I 10/14/23 PTT 10/14/23 Troponin-I 10/14/23 PT/ INR 10/13/23 PTT 10/13/23 Clostridium Difficile (C Diff) 10/13/23 Fecal Bacterial Pathogens by PCR [facility] 10/13 Troponin-I 10/13/23 Beta Hydroxybutyrate 10/13/23 SARS-CoV-2 (COVID-19)/Flu/RSV (GeneXpert ) (COVID-19/Flu/RSV (GeneXpert)) 10/13/23 Urinalysis with Micro if Indicated and C ulture if Indicated 10/13/23 Blood Culture ID ([facility] [employer]) 2 10/13/23 D-Dimer 10/13/23 Beta hCG Quantitative 10/13/23 Blood Gas Venous 10/13/23 Lactic Acid 10/13/23 Lipase Level 10/13/23 NT- Pro BNP 10/13/23 Procalcitonin 10/13/23 TSH w/ Rflx to Free T4 10/13/23 Most recent to oldest [Reference Range]: 1 2 3 WBC [5.0-10.0 x10^3/mcL] 7.5 x10^3/mcL (10/16/23 7:02 AM) 7.5 x10^3/mcL (10/15/23 7:00 AM) 9.0 x10^3/mcL (10/14/23 6:45 AM) RBC [4.1-5.3 x10^6/mcL] 3.8 x10^6/mcL *LOW* (10/16/23 7:02 AM) 3.8 x10^6/mcL *LOW* (10/15/23 7:00 AM) 3.8 x10^6/mcL *LOW* (10/14/23 6:45 AM) Neutro Auto [40.0-75.0 %] 55.8 % (10/16/23 7:02 AM) 60.2 % (10/15/23 7:00 AM) 54.9 % (10/14/23 6:45 AM) Lymph Auto [20.0-50.0 %] 31.9 % (10/16/23 7:02 AM) 27.2 % (10/15/23 7:00 AM) 35.9 % (10/14/23 6:45 AM) [place] Auto [2.0-15.0 %] 4.8 % (10/16/23 7:02 AM) 5.8 % (10/15/23 7:00 AM) 6.4 % (10/14/23 6:45 AM) Basophil Auto [0.0-1.0 %] 0.3 % (10/16/23 7:02 AM) 0.4 % (10/15/23 7:00 AM) 0.2 % (10/14/23 6:45 AM) Prothrombin Time [9.0-11.0 seconds] 10.7 seconds (10/13/23 9:47 PM) INR 1.1 1 *NA* (10/13/23 9:47 PM) BUN [7-18 mg/dL] 34 mg/dL *HI* (10/16/23 7:02 AM) 31 mg/dL *HI* (10/15/23 7:00 AM) 30 mg/dL *HI* (10/14/23 6:45 AM) Glucose POC [74-106 mg/dL] 232 mg/dL *HI* (10/16/23 7:16 AM) 89 mg/dL (10/16/23 3:44 AM) 62 mg/dL *LOW* (10/16/23 2:50 AM) UA Color Yellow (10/13/23 5:20 PM) Glucose Level [74-106 mg/dL] 255 mg/dL *HI* (10/16/23 7:02 AM) 50 mg/dL 2 *CRIT* (10/16/23 1:14 AM) 189 mg/dL *HI* (10/15/23 7:00 AM) Potassium Level [3.5-5.1 mmol/L] 4.0 mmol/L (10/16/23 7:02 AM) 3.8 mmol/L (10/15/23 7:00 AM) 4.0 mmol/L (10/14/23 6:45 AM) MCV [80.0-96.0 fL] 90.9 fL (10/16/23 7:02 AM) 91.2 fL (10/15/23 7:00 AM) 92.6 fL (10/14/23 6:45 AM) UA Urobilinogen Positive *ABN* (10/13/23 5:20 PM) UA Bili [Negative] Negative (10/13/23 5:20 PM) CO2 Total Venous 24 mmol/L *NA* (10/13/23 5:02 PM) UA Ketones Negative (10/13/23 5:20 PM) HCO3 Venous [22-30 mmol/L] 23 mmol/L (10/13/23 5:02 PM) AST [15-37 unit/L] 105 unit/L *HI* (10/16/23 7:02 AM) 192 unit/L *HI* (10/15/23 7:00 AM) 272 unit/L *NA* (10/14/23 6:45 AM) ALT [14-59 unit/L] 235 unit/L *HI* (10/16/23 7:02 AM) 282 unit/L *HI* (10/15/23 7:00 AM) 289 unit/L *HI* (10/14/23 6:45 AM) MCHC [31.0-35.0 g/dL] 32.4 g/dL (10/16/23 7:02 AM) 32.3 g/dL (10/15/23 7:00 AM) 31.9 g/dL (10/14/23 6:45 AM) Troponin-I [0.0-51.4 pg/mL] 153.0 pg/mL 3 *CRIT* (10/14/23 6:45 AM) 210.2 pg/mL 4 *CRIT* (10/14/23 1:05 AM) 226.0 pg/mL 5 *CRIT* (10/13/23 7:11 PM) Sodium Level [136-145 mmol/L] 140 mmol/L (10/16/23 7:02 AM) 139 mmol/L (10/15/23 7:00 AM) 135 mmol/L *LOW* (10/14/23 6:45 AM) UA Leuk Est Negative (10/13/23 5:20 PM) UA Nitrite Negative (10/13/23 5:20 PM) UA Glucose [Negative] Trace *ABN* (10/13/23 5:20 PM) Hct [37.0-47.0 %] 34.9 % *LOW* (10/16/23 7:02 AM) 34.4 % *LOW* (10/15/23 7:00 AM) 35.1 % *LOW* (10/14/23 6:45 AM) Lipase Level [16-77 unit/L] 12 unit/L 6 *LOW* (10/13/23 5:02 PM) Partial Thromboplastin Time [22-35 seconds] 32 seconds 7 (10/14/23 3:55 AM) 45 seconds 8 *HI* (10/13/23 9:47 PM) Calcium Level [8.5-10.1 mg/dL] 9.0 mg/dL (10/16/23 7:02 AM) 8.7 mg/dL (10/15/23 7:00 AM) 8.4 mg/dL *LOW* (10/14/23 6:45 AM) Phosphorus Level [2.6-4.7 mg/dL] 4.3 mg/dL (10/16/23 7:02 AM) 4.5 mg/dL (10/15/23 7:00 AM) 3.8 mg/dL (10/14/23 6:45 AM) Albumin Level [3.4-5.0 g/dL] 3.0 g/dL *LOW* (10/16/23 7:02 AM) 2.8 g/dL *LOW* (10/15/23 7:00 AM) 2.9 g/dL *LOW* (10/14/23 6:45 AM) Protein Total [6.4-8.2 g/dL] 7.6 g/dL (10/16/23 7:02 AM) 7.1 g/dL (10/15/23 7:00 AM) 6.5 g/dL (10/14/23 6:45 AM) UA Protein Negative (10/13/23 5:20 PM) MCH [26.0-32.0 pg] 29.4 pg (10/16/23 7:02 AM) 29.4 pg (10/15/23 7:00 AM) 29.6 pg (10/14/23 6:45 AM) Magnesium Level [1.8-2.4 mg/dL] 1.7 mg/dL *LOW* (10/16/23 7:02 AM) 1.8 mg/dL (10/15/23 7:00 AM) 2.1 mg/dL (10/14/23 6:45 AM) Neutro Absolute 4.2 x10^3/mcL *NA* (10/16/23 7:02 AM) 4.5 x10^3/mcL *NA* (10/15/23 7:00 AM) 4.9 x10^3/mcL *NA* (10/14/23 6:45 AM) Bilirubin Total [0.2-1.0 mg/dL] 0.6 mg/dL (10/16/23 7:02 AM) 0.5 mg/dL (10/15/23 7:00 AM) 0.9 mg/dL (10/14/23 6:45 AM) Hgb [12.0-16.0 g/dL] 11.3 g/dL *LOW* (10/16/23 7:02 AM) 11.1 g/dL *LOW* (10/15/23 7:00 AM) 11.2 g/dL *LOW* (10/14/23 6:45 AM) Alk Phos [46-146 unit/L] 291 unit/L *HI* (10/16/23 7:02 AM) 277 unit/L *HI* (10/15/23 7:00 AM) 264 unit/L *HI* (10/14/23 6:45 AM) UA Blood Negative (10/13/23 5:20 PM) pCO2 Mirza [33-47 mmHg] 45 mmHg (10/13/23 5:02 PM) UA Spec Grav 1.020 *NA* (10/13/23 5:20 PM) Bilirubin Direct [0.00-0.20 mg/dL] 0.54 mg/dL *HI* (10/14/23 6:45 AM) Platelets [130-450 x10^3/mcL] 228 x10^3/ mcL (10/16/23 7:02 AM) 204 x10^3/mcL (10/15/23 7:00 AM) 213 x10^3/mcL (10/14/23 6:45 AM) CO2 [21-32 mmol/L] 29 mmol/L (10/16/23 7:02 AM) 28 mmol/L (10/15/23 7:00 AM) 23 mmol/L (10/14/23 6:45 AM) Lactic Acid Lvl [0.7-2.0 mmol/L] 1.7 mmol/L (10/13/23 5:02 PM) TSH [0.358-3.740 mcIntlUnit/mL] 1.239 mcIntlUnit/mL (10/13/23 5:02 PM) pO2 Mirza 48 mmHg *NA* (10/13/23 5: PM) GGT [5-55 unit/L] 1635 unit/L *HI* (10/14/23 6:45 AM) UA pH 5.0 *NA* (10/13/23 5:20 PM) pH Mirza [7.32-7.43 pH unit(s)] 7.31 pH un it(s) *LOW* (10/13/23 5:02 PM) O2 Sat Mirza 80 % *NA* (10/13/23 5:02 PM) eGFR Non-AA [>=60] 66 (10/16/23 7:02 AM) 70 (10/15/23 7:00 AM) 76 (10/14/23 6:45 AM) eGFR AA [>=60] 66 (10/16/23 7:02 AM) 70 (10/15/23 7:00 AM) 76 (10/14/23 6:45 AM) Base Excess Venous -3.8 mmol/L *NA* (10/13/23 5:02 PM) UA Appear Clear (10/13/23 5:20 PM) NT-proBNP [0-125 pg/mL] 2928 pg/mL *HI* (10/13/23 5:02 PM) Chloride Level [98-107 mmol/L] 100 mmol/ L (10/16/23 7:02 AM) 102 mmol/L (10/15/23 7:00 AM) 102 mmol/L (10/14/23 6:45 AM) Procalcitonin [0.00-0.50 ng/mL] 1.11 ng/mL *HI* (10/13/23 5:02 PM) RDW-CV [11.5-14.5 %] 14.4 % (10/16/23 7:02 AM) 14.6 % *HI* (10/15/23 7:00 AM) 15.1 % *HI* (10/14/23 6:45 AM) Acinetobacter Baumannii Cmpl x BCID-BFire [Not Detected] Not Detected (10/13/23 5:13 PM) Judy albicans BCID-BFire [Not Detected] Not Detected (10/13/23 5:13 PM) Judy glabrata BCID-BFire [Not Detected] Not Detected (10/13/23 5:13 PM) Judy krusei BCID-BFire [N ot Detected] Not Detected (10/13/23 5:13 PM) Judy parapsilosis BCID-BFire [Not Detected] Not Detected (10/13/23 5:13 PM) Judy tropicalis BCID-BFir e [Not Detected] Not Detected (10/13/23 5:13 PM) Enterobacter cloacae complex BCID-BFire [Not Detected] Not Detected (10/13/23 5:13 PM) E. coli BCID-BFire [Not Detected] Not Detected (10/13/23 5:13 PM) Haemophilus influenzae BCID-BFire [Not Detected] Not Detected (10/13/23 5:13 PM) Klebsiella oxytoca BCID-BFir e [Not Detected] Not Detected (10/13/23 5:13 PM) Klebsiella pneumoniae BCID-BFire [Not Detected] Not Detected (10/13/23 5:13 PM) KPC (carbapenem-resist gene) BCID-BFire N/A *NA* (10/13/23 5:13 PM) Listeria monocytogenes BCID-BFire [Not Detected] Not Detected (10/13/23 5:13 PM) mecA (methicillin-resist gen e) BCID-BFir N/A (10/13/23 5:13 PM) Neisseria meningitidis BCID-BFire [Not Detected] Not Detected (10/13/23 5:13 PM) Pseudomonas aeruginosa BCID-BFire [Not Detected] Not Detected (10/13/23 5:13 PM) Proteus species BCID-BFire [Not Detected] Not Detected (10/13/23 5:13 PM) Streptococcus agalactiae (gr p B) -BFire [Not Detected] Not Detected (10/13/23 5:13 PM) Streptococcus pneumoniae BCID-BFire [Not Detected] Not Detected (10/13/23 5:13 PM) Streptococcus pyogenes (grp A) -BFire [Not Detected] Not Detected (10/13/23 5:13 PM) Serratia marcescens BCID-BFi re [Not Detected] Not Detected (10/13/23 5:13 PM) Staphylococcus aureus BCID-BFire [Not Detected] Not Detected (10/13/23 5:13 PM) Staphylococcus species BCID-BFire [Not Detected] Detected *ABN* (10/13/23 5:13 PM) Streptococcus species BCID-BFire [Not Detected] Not Detected (10/13/23 5:13 PM) Cecilio/B (vanc-resist gene) BCID-BFire N/A *NA* (10/13/23 5:13 PM) Imm Gran Auto [0.0-0.9 %] 1.3 % *HI* (10/16/23 7:02 AM) 0.8 % (10/15/23 7:00 AM) 0.4 % (10/14/23 6:45 AM) Clostridium Difficile Toxin [Negative] Positive 9 *ABN* (10/13/23 9:20 PM) Creatinine Level [0.55-1.02 mg/dL] 1.17 mg/dL *HI* (10/16/23 7:02 AM) 1.12 mg/dL *HI* (10/15/23 7:00 AM) 1.04 mg/dL *HI* (10/14/23 6:45 AM) Employed 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 Unknown *NA* (10/13/23 5:20 PM) Symptomatic as defined by CDC? Unknown *NA* (10/13/23 5:20 PM) Hospitalized due to COVID-19? Unknown *NA* (10/13/23 5:20 PM) In ICU? Unknown *NA* (10/13/23 5:20 PM) Group care resident? Unknown *NA* (10/13/23 5:20 PM) status? Unknown *NA* (10/13/23 5:20 PM) SARS-CoV-2(Covid19)PCR(GXper t COVFLURSV) [Negative] Negative (10/13/23 5:20 PM) Flu A (GXpert COVFLURSV) [Negative] Negative (10/13/23 5:20 PM) RSV (GXpert COVFLURSV) [Negative] Negative (10/13/23 5:20 PM) Flu B (GXpert COVFLURSV) [Negative] Negative (10/13/23 5:20 PM) Cryptococcus neoformans/juan-Bifre [Not Detected] Not Detected (10/13/23 5:13 PM) Judy auris-Bfire [Not Detected] Not Detected (10/13/23 5:13 PM) Stenotrophomonas maltophila-Bfire [Not Detected] Not Detected (10/13/23 5:13 PM) Salmonella spp. -Bfire [Not Detected] Not Detected (10/13/23 5:13 PM) Bacteroides fragilis-Bfire [Not Detected] Not Detected (10/13/23 5:13 PM) Enterobacterales-Bfire [Not Detected] Not Detected (10/13/23 5:13 PM) Staphylococcus epidmidis-Bfi re [Not Detected] Detected 10 *ABN* (10/13/23 5:13 PM) Enterococcus Faecium-Bfire [Not Detected] Not Detected (10/13/23 5:13 PM) Enterococcus Faecalis-Bfire [Not Detected] Not Detected (10/13/23 5:13 PM) VIM-Bfire N/A *NA* (10/13/23 5:13 PM) RBU-85-ybdc-Bfire N/A *NA* (10/13/23 5:13 PM) NDM-Bfire N/A *NA* (10/13/23 5:13 PM) mecA/C and MREJ-Bfire N/A *NA* (10/13/23 5:13 PM) IMP-Bfire N/A *NA* (10/13/23 5:13 PM) CTX-M-Bfire N/A *NA* (10/13/23 5:13 PM) mecA/C-Bfire Not Detected *NA* (10/13/23 5:13 PM) Klebsiella aerogenes-Bfire [Not Detected] Not Detected (10/13/23 5:13 PM) Staphylococcus lugdunensis-Bfire [Not Detected] Not Detected (10/13/23 5:13 PM) Salmonella PCR [facility] [Negative] Negative *NA* (10/13/23 9:20 PM) Shigella/Enteroinvasive E. coli [facility] [Negative] Negative *NA* (10/13/23 9:20 PM) HN LAB CAMPYLOBACTER PCR [facility] [Negative] Negative *NA* (10/13/23 9:20 PM) Shiga Toxin PCR [facility] [Negative] Negative 11 *NA* (10/13/23 9:20 PM) Beta-Hydroxybutyrate [0.0-0. 5 mmol/L] <0.1 mmol/L (10/13/23 6:24 PM) D Dimer, (Quant.) [0.00-0.50 mg/L] 0.57 mg/L 12 *HI* (10/13/23 5:13 PM) Eos, Auto [1.0-6.0 %] 5.9 % (10/16/23 7:02 AM) 5.6 % (10/15/23 7:00 AM) 2.2 % (10/14/23 6:45 AM) Beta hCG Qnt [1-6 mIntlUnit/mL] <1 mIntlUnit/mL *LOW* (10/13/23 5:02 PM) 1Interpretive Data: INR 2-2.5 Prophylaxis: Short term DVT INR 2-3 Prophylaxis: hip and femur surgery Therapy: DVT (3 mos) PE (3-6 mos) TIA (tank terminal gauger) Atr Fib (mcc) Syst. emb post [place] Mitral Stenosis with emboli (tank terminal gauger) Tissue prosthetic valves (3 mos min) INR 3-4.5 Therapy: recurrent DVT, PE (tank terminal gauger) Prosthetic heart valves (mcc) 2Result Comment: Called to and verbally verified by Cori Chatman at 10/16/2023 01:36:13 EST. 3Result Comment: Repeated to confirm. Called to and verbally verified by Jayson Venegas at 10/14/2023 08:23:56 EST_. 4Result Comment: Called to and verbally verified by Rosa Shepherd at 10/14/2023 01:48:17 EST. 5Result Comment: Called to and verbally verified by Stephanie White at 10/13/2023 19:40:49 EST. 6Interpretive Data: Effective 06/29/22, [facility] has switched to a revised Lipase test.Note new ReferenceRange. 7Interpretive Data: NEW reagent effective 08/07/2023 - Therapeutic Heparin Reference Range (0.3-0.7 effective anti-Xa level) 40-85 seconds. 8Interpretive Data: NEW reagent effective 08/07/2023 - Therapeutic Heparin Reference Range (0.3-0.7 effective anti-Xa level) 40-85 seconds. 9Result Comment: CALLED TO [place] BY [facility] 10/14/2023 15:19:47 EST 10Result Comment: Called to Dr. Nieto at 10/14/2023 16:38:25 EST_ 11Result Comment: Test [place] [address] 12Interpretive Data: Exclusion of PE: Effective May 29, [...] >/= 0.50 was considered positive for PE. Orders for Microbiology Reports Name Date Blood Culture 10/13/23 Blood Culture 10/13/23 Microbiology Reports TEST:Blood Culture STATUS:Order in Progress BODY SITE: SOURCE:Blood COLLECTED DATE/TIME:10/13/23 5:13 PM PRELIMINARY REPORT No growth at 24 hours. TEST:Blood Culture STATUS:Auth (Verified) BODY SITE: SOURCE:Blood COLLECTED DATE/TIME:10/13/23 5:13 PM FINAL REPORT Staphylococcus epidermidis STAIN REPORT Gram Positive Cocci in Anaerobic Bottle ORGANISM:Staphylococcus epidermidis Susceptibilty: Staphylococcus epidermidis Tested Drug JACQUELIN Dilution JACQUELIN Interpretati on Vancomycin 1 S Trimethoprim/Sulfa <=0.5/9.5 S Tigecycline <=0.25 S Tetracycline <=4 S Synercid <=0.5 S Rifampin <=1 S Piperacillin/Tazobactam <=8 S Penicillin >2 Oxacillin <=0.25 S Meropenem <=2 S Linezolid <=1 S Levofloxacin <=1 S Imipenem <=4 S Gentamicin <=4 S Erythromycin >4 R Daptomycin <=0.5 S Clindamycin <=0.25 S Ciprofloxacin <=1 S Cephalothin <=8 S Ceftriaxone <=4 S Cefepime <=4 S Cefazolin <=8 S Azithromycin >4 R Ampicillin/Sulbactam <=8/4 S Ampicillin 8 Amoxicillin/Clavulanate <=4/2 S Vital Signs Most recent to oldest [Reference Range]: 1 2 3 Temperature Temporal Artery [36-38 Deg C] 36.3 Deg C (10/16/23 11:40 AM) 36.4 Deg C (10/16/23 7:24 AM) 36.2 Deg C (10/16/23 5:16 AM) Temperature Temporal Artery (DegF) [97.3-100 Deg F] 98.42 Deg F (10/13/23 10:25 PM) Peripheral Pulse Rate [60-100 bpm] 88 bpm (10/16/23 11:40 AM) 88 bpm (10/16/23 7:32 AM) 88 bpm (10/16/23 7:24 AM) Heart Rate Monitored [60-100 bpm] 98 bpm (10/16/23 2:55 AM) 92 bpm (10/15/23 11:02 AM) 106 bpm *HI* (10/15/23 8:15 AM) Respiratory Rate [12-24 br/min] 28 br/min *HI* (10/16/23 11:40 AM) 22 br/min (10/16/23 7:32 AM) 18 br/min (10/16/23 7:24 AM) Blood Pressure [90-140/60-90 mmHg] 146/94mmHg *HI* (10/16/23 11:40 AM) 129/77mmHg (10/16/23 7:24 AM) 128/71mmHg (10/16/23 5:16 AM) Mean Arterial Pressure, Cuff [70-110 mmHg] 81 mmHg (10/13/23 9:28 PM) 68 mmHg *LOW* (10/13/23 9:22 PM) 78 mmHg (10/13/23 8:50 PM) Mean Arterial Pressure Cuff 108 mmHg (10/16/23 11:40 AM) 90 mmHg (10/16/23 7:24 AM) 86 mmHg (10/16/23 5:16 AM) Blood Pressure Location Right arm (10/16/23 11:40 AM) Left arm (10/14/23 8:11 PM) Left arm (10/14/23 4:27 PM) Weight 139.75 kg (10/16/23 9:12 AM) 140 kg (10/15/23 4:40 AM) 138.4 kg (10/13/23 11:11 PM) Weight Measured (lbs) 308.647 lb (10/15/23 4:40 AM) Weight Dosing 133.000 kg (10/13/23 4:48 PM) Height 149 cm (10/13/23 4:48 PM) Body Mass Index 59.91 kg/m2 (10/13/23 4:48 PM) Social History Social History Type Response Tobacco Never tobacco user T obacco Use:. Sex Female Hospital Discharge Instructions Patient Education 10/16/2023 10:03:17 Clostridioides Difficile Infection, Hpvr-bc-Yrlc Clostridioides Difficile Infection Clostridioides difficile infection, or [...] these instructions at home: Medicines ??? Take tjhb-yrn-gadiaaw and prescription medicines only as told by [...] Applesauce. ??? Rice. ??? Lean meats. ??? [place]. ??? Crackers. ??? To prevent loss of [...] provider. Document Revised: 12/16/2020 Document Reviewed: 12/16/2020 [employer] Patient Education ?? 2022 [employer]. 10/16/2023 10:03:10 Community-Acquired Pneumonia, Adult, Kqqz-jo-Ntdz Community-Acquired Pneumonia, Adult Pneumonia is an infection [...] these instructions at home: Medicines ??? Take stis-fnz-lsxqcje and prescription medicines only as told by [...] cannot use soap and water, use hand monkey breeder. Contact a doctor if: ??? You have [...] provider. Document Revised: 06/08/2020 Document Reviewed: 06/08/2020 [employer] Patient Education ?? 2022 [employer]. Follow Up Care 10/13/2023 16:48:46 With:Jamila Archer MD Address: [address] [place] [address]- When:10/23/2023 08:00:00 Comments:Hospital follow up Discharge instructions * Antonietta Neil D: PERFORM Event Display: Discharge Instructions Authored Date: [id number] MARIELOS MIRAMONTES :1995 Age:28 years Sex:Female Visit Date:10/13/2023 Primary Care Physician: Jamila Archer MD Hospital Discharge Instructions We would like to thank you for allowing us to assist you with your healthcare needs. The following includes patient education materials and information regarding your injury/illness. Your Next Steps Discharge Orders Discharge Activity Restrictions, as tolerated Discharge Diet Instruction, Diabetic Diet Scheduled Future Appointments Sunday 9:30 AM EST ?? With: Shila Krueger Where: [facility] [address] [place] [id number] Status: Confirmed Sunday 10:00 AM EDT ?? Where: [facility] Cardiology Status: Confirmed Sunday 8:20 AM EDT ?? 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 Floor Supervisor Madhu Krueger The Following Treatments Have Been Arranged for You Current Home Treatments - Blood glucose monitoring, CPAP, Nebulizer treatments Medications What How Much When Why Instructions Next Dose New azithromycin (azithromycin 250 mg oral tablet) 1 tab Oral (given by mouth) Every day Duration: 2 Days Pickup at [place] [address] 10/16 @9pm New benzonatate (Tessalon Perles 100 mg oral capsule) 2 Capsules Oral (given by mouth) 3 times a day as needed for cough Pickup at [place] [address] as needed New cefdinir (cefdinir 300 mg oral capsule) 1 Capsules Oral (given by mouth) Every 12 hours Duration: 7 Days Pickup at [place] [address] 10/16 @ 7pm New tirzepatide (Mounjaro 2.5 mg/ 0.5 mL subcutaneous solution) 2.5 Milligrams Subcutaneous (under the skin) Every week Morbid obesity rotate injection sites ?? Pickup at [place] [address] pending prior auth from insurance New vancomycin (vancomycin 125 mg oral capsule) See instructions 1 capsule 4 times daily for 10 additional days then 1 capsule 3 times daily for 5 days then 2 timesdaily for 5 days then 1 time daily. ?? Pickup at [place] [address] 10/16 @ 12pm, 4pm & 8pm ?? 8am/12pm/4pm/8pm Changed insulin lispro (HumaLOG Mina KwikPen 100 units/ mL injectable solution) 30 Units Subcutaneous (under the skin) Every morning with breakfast ?? 10/17 @ 0730 Changed insulin regular (HumuLIN R KwikPen (Concentrated) 500 units/ mL subcutaneous solution) See instructions 230 units of humilin 180 Units of humiln at lunch 100 Units of humilin at dinner, decrease dose and titrate as neccesary as half dose of insulin was given in hospital and was still hypoglycemic ?? Resume home regimen Unchanged atorvastatin (atorvastatin 40 mg oral tablet) 1 tab Oral (given by mouth) Every day 10/16 @ 5pm Unchanged cetirizine (cetirizine 10 mg [...] Milligrams Oral (given by mouth) Every day Resume home dose Unchanged glucagon (Glucagon Emergency Kit for Low Blood Sugar) See instructions hypoglycemia symptoms follow instructions per kit, As needed for low blood sugar ?? as needed Unchanged levothyroxine 250 Micrograms Oral (given by mouth) Every day 10/17 @ 7am Unchanged lisinopril (lisinopril 5 mg oral tablet) 1 tab Oral (given by mouth) Every day Resume home dose Unchanged Other Prescription (ONETOUCH VERIO FLEX KIT) 1 each by [facility]. (non drug: combo route) route 4 times daily. ?? Unchanged Other Prescription (ONETOUCH VERIO MARLENE) Test blood glucose withone new test strip 4 times daily ?? Unchanged torsemide (torsemide 20 mg oral tablet) 3 tab Oral (given by mouth) 2 times a day TWICE ??DAIY. ?? 10/16 @ 9pm Pharmacy Information [id number]: [address] [place], [place] [id number] [phone] Your Summary Your Care Team Admitting Physician - Mahesh Pena NP Attending Physician - Hortensia Nieto MD Primary Care Physician - Jamila Archer MD Your Diagnosis Multifocal pneumonia Type 2 myocardial infarction Acute hypoxic respiratory failure Hyperglycemia Transaminitis HTN (hypertension) HLD (hyperlipidemia) Hypothyroidism Morbid obesity Type 1 diabetes Asthma DEAN (acute kidney injury) C. difficile diarrhea Discharge Vitals Temperature??(Temporal Artery) 97.5 ??F (36.4 ??C) Heart Rate??(Peripheral) 88 Respiratory Rate?? 22 Blood Pressure?? 129/77?? Weight?? 308.15 lb (139.75 kg) Allergies rOPINIRole morphine Medication Information tirzepatide?? (tir ZEP a tide) ?? Mounjaro, Zepbound? What is the most important information I should know about tirzepatide? Call your doctor at once if you have??signs of a thyroid tumor, such as swelling or a lump in your neck, trouble swallowing, a hoarse voice, or shortness of breath. ?? You should not use this medicine if you or anyone in your family have or have ever had thyroid cancer or a condition called multiple endocrine neoplasia syndrome. ?? What is tirzepatide? Mounjaro??is used together with diet and exercise to improve blood sugar control in adults with type 2 diabetes mellitus. ? This medicine is not for treating type 1 diabetes. ?? Zepbound??is used with diet and exercise to manage weight in overweight or obese adults who also have at least one weight-related medical condition such as type 2 diabetes, high blood pressure, high cholesterol, obstructive sleep apnea, or heart problems. ?? Tirzepatide may also be used for purposes not listed in this medication guide. ?? What should I discuss with my healthcare provider before using tirzepatide? You should not use tirzepatide if you are allergic to it, or if you have: ?a personal or family history of medullary thyroid carcinoma (a type of thyroid cancer); or ?multiple endocrine neoplasia type 2 (tumors in your glands). ?? Tell your doctor if you have or have ever had: ?pancreas problems; ?a severe stomach problem such as problems with digesting food or slowed emptying of your stomach (gastroparesis);?diabetic retinopathy (a diabetes complication that affects the eyes); or ?kidney disease. ?? May harm an unborn baby. Do not use if you are .??Tell your doctor if you become . ?? If you are , your name may be listed on a registry to track the effects of tirzepatide on the baby. ?? Tirzepatide can make control pills less effective. Ask your doctor about other control options such as an injection, implant, skin patch, vaginal ring, condom, diaphragm, cervical cap, orcontraceptive sponge. If you take control pills you may need to use different control options for 4 weeks after starting this medicine and for 4 weeks each time the dose is raised. ?? Ask a doctor if it is safe to breastfeed while using this medicine. ?? How should I use tirzepatide? Follow all directions on your prescription label and read all medication guides or instruction sheets. Your doctor may occasionally change your dose. Use the medicine exactly as directed. ?? Tirzepatide is injected under the skin once per week. If you change your dosing day, allow at least3 days (72 hours) to pass between doses. ?? You may use tirzepatide with or without food. Drink plenty of liquids while you are using this medicine. ?? Your healthcare provider will show you where to inject tirzepatide. Do not inject into the same place two times in a row. ?? You may have low blood sugar??(hypoglycemia)??and feel very hungry, dizzy, irritable, confused, anxious, or shaky. ??To quickly treat hypoglycemia, eat or drink a fast-acting source of sugar (fruit juice, hard candy, crackers, raisins, or non-diet soda). ?? You may give an injection of tirzepatide and insulin in the same area (such as upper arm), but not right next to each other. ?? Do not??mix insulin and tirzepatide in the same injection. ?? Do not share this medicine with another person, even if they have the same symptoms you have. ?? Blood sugar levels can be affected by stress, illness, surgery, exercise, alcohol use, or skipping meals. ??Ask your doctor before changing your dose or medication schedule. ?? Each injection pen or prefilled syringe is for one use only. ??Throw away after one use, even if there is still medicine left inside. ??Use a puncture-proof 'sharps' container. ??Follow state or local laws about how to dispose of this container. ??Keep it out of the reach of children and pets. ?? Follow all storage instructions provided with tirzepatide. Your pharmacist can provide more information about how to store this medicine. ?? What happens if I miss a dose? Use the medicine as soon as you can, but skip the missed dose if you are more than 4 days (96 hours) late for the dose. ??Do not??use two doses at one time. ?? What happens if I overdose? Seek emergency medical attention or call the Poison Help line at . ?? What should I avoid while using tirzepatide? Never share an injection pen or prefilled syringe with another person, even if the needle has been changed.?Sharing these devices can allow infections or disease to pass from one person to another. ?? What are the possible side effects of tirzepatide? Stop using tirzepatide and get emergency medical help if you have: ?signs of an allergic reaction:?hives; difficult breathing; feeling light- headed; swelling ofyour face, lips, tongue, or throat; or ?pancreatitis--severe pain in your upper stomach spreading to your back, nausea and vomiting. ?? Some people have thoughts about suicide while using tirzepatide.??Tell your doctor right away if you have any sudden changes in mood or behavior, or thoughts about suicide. ?? Call your doctor at once if you have: ?severe stomach problems; ?changes in your vision; ?signs of a thyroid tumor--swelling or a lump in your neck, trouble swallowing, a hoarse voice, or if you feel short of breath; ?gallbladder problem--chalky-colored stools, stomach pain after eating, nausea, heartburn, bloating, and severe upper stomach pain that may spread to your back;?low blood sugar--headache, hunger, weakness, sweating, confusion, irritability, dizziness, fastheart rate, or feeling jittery; or ?kidney problems--little or no urination, swelling in your feet or ankles, feeling tired or short of breath. ?? Common side effects may include: ?hair loss; ?tiredness; ?signs of an allergic reaction; ?bruising, swelling, warmth, redness, oozing, or bleeding where an injection was given; ?nausea, diarrhea, decreased appetite, vomiting; or ?heartburn, burping, constipation, indigestion, or stomach pain. ?? This is not a complete list of side effects and others may occur. Call your doctor for medical advice about side effects. You may report side effects to FDA at 9-256-KNQ-3887. ?? What other drugs will affect tirzepatide? Tirzepatide can slow your digestion, and it may take longer for your body to absorb any medicines you take by mouth. ? Tell your doctor about all your other medicines, especially: ?insulin or oral diabetes medicine. ?? This list is not complete. Other drugs may affect tirzepatide, including prescription and wmrq-yug-llmyhji medicines, vitamins, and herbal products. Not all possible drug interactions are listed here. ?? Where can I get more information? Your doctor or pharmacist can provide more information about tirzepatide. ?? Remember, keep this and all other medicines out of the reach of children, never share your medicines with others, and use this medication only for the indication prescribed. ?? Every effort has been made to ensure that the information provided by [employer]') is accurate, up-to-date, and complete, but no guarantee is made to that effect. Drug information contained herein may be time sensitive. [employer] information has been compiled for use by healthcare practitioners and consumers in the [place] and therefore [employer] does not warrant that uses outside of the [place] are appropriate, unless specifically indicated otherwise. [employer] drug information does not endorse drugs, diagnose patients or recommend therapy. [employer] drug information isan informational resource designed to assist licensed healthcare practitioners in caring for their p atients and/or to serve consumers viewing this service as a supplement to, and not a substitute for, the expertise, skill, knowledge and judgment of healthcare practitioners. The absence of a warningfor a given drug or drug combination in no way should be construed to indicate that the drug or drug combination is safe, effective or appropriate for any given patient. [employer] does not assume any responsibility for any aspect of healthcare administered with the aid of information [employer] provides. The information contained herein is not intended to cover all possible uses, directions, precautions, warnings, drug interactions, allergic reactions, or adverse effects. If you have questions about the drugs you are taking, check with your doctor, nurse or pharmacist.? Copyright 2319-4709 [employer], [place]. Version: 3.01. Revision Date: 07/27/2023. ? Patient/Unit Coordinator Signature Patient Name:MARIELOS MIRAMONTES I have received this information and my questions have been answered. Patient/Unit Coordinator Name: Patient/Unit Coordinator Signature: Relationship to Patient: Witness Name/Signature: Date: Electronically Signed on: 10/16/2023 11:09 ESTSigned by:ELOISE office manager Note * Sweetie Zaragoza: PERFORM Event Display: Case Management Note Authored Date: [id number] Review Summary Settings Print [employer]?? Review Summary Created By: Sweetie Zaragoza Created Date: 10/13/2023, 08:45 PM EST Review Status: In Primary Completed Date: Facility: Criteria Status: Acute Met Criteria Product: LOC:Acute Adult Criteria Subset: Infection: Sepsis Criteria Version: [employer]Qual?? 2022, 2022 Release Utilization Benchmarks Length of Stay: None selected Select Day, One: Initial review, One: Episode Day 1, One: OBSERVATION, One: ACUTE, One: Systemic infection (excludes viral), All: Finding, ??? One: Blood cultures positive Organ dysfunction or hypoperfusion, One: Moderate risk finding, ??? Two: High risk finding, ??? One: High risk for disease progression, Both: Risk factor, ? ? One: Age > 75 years Chronic ventilator patient Coexisting disease, ??? One: COPD , Grade 3 or 4 Chronic kidney disease Diabetes mellitus Heart failure, NYHA Class III or IV Liver disease Malignancy requiring active treatment with chemotherapy or radiation Immunocompromised Indwelling venous catheter Malnutrition Finding, ? ? One: Creatinine ? ? 1.5x and < 2x baseline or estimated baseline Mental status changes (excludes coma, stupor, or obtundation) and GCS 13-14 Platelet count 100,000/cu.mm(373t739/L) to 150,000/cu.mm(160q460/L) and < baseline Total segun irubin 1.2 mg/dL(20.52 ??mol/L) to 1.9 mg/dL(32.49 ??mol/L) and > baseline O2 sat ? ? 91%(0.91) and < baseline Lactic acid > ULN and < 4 mmol/L(36.0 mg/dL) SIRS , ? ? Two: Temperature ? ?100.4??F(38.0??C) or < 97.0??F(36.1??C) WBC, ? ? One: Heart rate > 90/min, sustained Respiratory rate > 20/min, sustained Intervention, Both: Anti-infective IV fluid EKG study * Event Display: Telemetry Strips Please click on link to view image. * Event Display: Telemetry Strips Please click on link to view image. * Event Display: Telemetry Strips Please click on link to view image. Pharmacology Progress note * Andria Srivastava PharmD: PERFORM Event Display: Pharmacy Progress Note Authored Date: [id number] Pharmacy Progress Note Med history updated with Xi in [place] and the patient Electronically Signed on 10/15/23 01:14 PM Andria Srivastava PharmD Respiratory therapy Hospital Progress note * Jaida Forbes: PERFORM Event Display: Respiratory Therapy Progress Note Authored Date: [id number] ??MARIELOS MIRAMONTES 28 Years MEASURED Body Mass Index: 59.91 kg/m2 (10/13/23 16:48:00) BSA Measured: 2.29 m2 (11/03/22 09:13:00) Height: 149 cm (10/13/23 16:48:00) Weight: 140 kg (10/15/23 04:40:00) DOSING Height/Length Dosin cm (07/08/23 18:54:01) Weight Dosin kg (10/13/23 16:48:00) Respiratory Shift Summary Breath Sounds: clear, diminished bases Shift Treatments: none indicated Shift Events: pt found sitting in chair on RA SPO2 95% with no distress noted. pt states SOB on exertion. 2L oxymask placed at pts bedside for PRN use. + strong loose cough. States that she wore her HU BIPAP overnight Respiratory Goals/Plan of Care: deep breath, cough, prn albuterol nebs Respiratory Protocol??Aerosol Therapy Assessment and Scoring Home Medication Routine: Lung History (0) No Lung History and Non-Smoker Breath Sounds (1) Clear to slightly diminished or crackles in bases Respiratory Rate (1)??19-25 Modified Kathleen Scale or Observed Dyspnea (1) 1-2 With exertion Oxygen Therapy (1) 1-2 L/min using PRN mask with exertion Home Respiratory Medications (1) Rescue MDI less than or equal to 1 time per day Inhaler Use Assessment ? Clinically Stable? _? Can take a slow deep breath on command? _? Can perform a 3 second breath hold? _ Respiratory total Score: 5 Respiratory Guidelines 5-9 pts - QID scheduled??and Q4 PRN for SOB scheduled bronchodilators not indicated at this time- no wheezing or sob noted. continue Q2 PRN albuterol neb Electronically Signed on 10/16/23 08:34 AM Jaida Forbes Mya R: PERFORM, MODIFY Event Display: Respiratory Therapy Progress Note Authored Date: ??NIKUNJTATIMARIELOS MENJIVAR 28 Years Shift Events: 1934: Received pt on 2L OxyMask sat 98%, HR 90, RR 22 equal and shallow. BBS diminished t/o. Weanedpt to RA sat 91-94%. Pt suggested walking down [place] to see if her sat stay within normal range w/ exertion. Pt walked down the [place] to which her room is located, then back down to her room. Sat remained 88-93% for most of the walk. About 15 feet from the entrance to her room her sat decreased to 85%. Pt went back to room to recover. Sat increased back to 93% once she settled down. Pt can be on RA at rest, wear 2L O2 w/ exert at this time. 7: Pt placed on noc HU BiPAP w/ 2L O2 bleed in, sat 100%, RR 20 equal and nonlabored. Pt denies any needs and is in no acute respiratory distress at this time. 0255: Pt remains on HU BiPAP w/ 2L bleed in sat 98%, HR 98, RR 20 equal and nonlabored. Weaned pt to RA w/ BiPAP, sat 96%. Pt home BiPAP mask making squeaking noise and had a leak, attached a hospital mask to her machine which fit, pt stated that mask was working well. Pt denies any further needs at this time. Respiratory Aerosol Therapy Assessment [...] second breath hold? Yes Respiratory total score: 5 Respiratory Guidelines 5-9 pts - QID scheduled??and Q4 PRN for SOB Scheduled bronchodilators not indicated at this time Electronically Signed on 10/16/23 04:32 AM Rosa Mora * Kayy Bryson: PERFORM Event Display: Respiratory Therapy Progress Note Authored Date: [id number] ??MARIELOS MIRAMONTES 28 Years MEASURED Body Mass Index: 59.91 kg/m2 (10/13/23 16:48:00) BSA Measured: 2.29 m2 (11/03/22 09:13:00) Height: 149 cm (10/13/23 16:48:00) Weight: 140 kg (10/15/23 04:40:00) DOSING Height/Length Dosin cm (07/08/23 18:54:01) Weight Dosin kg (10/13/23 16:48:00) Respiratory Shift Summary Breath Sounds: Diminished all throughout lung barnes Shift Treatments: Duoneb QID. BIPAP at account development specialist Events: 6 min Walking Pulse Ox done this am on RA. Patient desaturated to 85%. Put back on 2 lpm oxymask (refused nc) I cant breath thru my nose, it's too stuffy. Sats increased to 98% Respiratory Goals/Plan of Care: ABG???s: Inital _??Settings: [...] - No Therapy indicated Electronically Signed on 10/15/23 08:22 AM Kayy Bryson Physician Emergency department Note * Deyvi Rodriguez MD: PERFORM Event Display: ED Note Physician Authored Date: [id number] MARIELOS MIRAMONTES :1995 Age:28 years Sex:Female Visit Date:10/13/2023 Primary Care Physician: Jamila Archer MD Basic Information Time Seen: Deyvi Rodriguez MD / 10/13/2023 17:06 Chief Complaint BIBEMS BGL 330, tachypnea, sat 70's had given herself 130u insulin en route. EMS reported temp 103.1. Recent diarrhea, multiple ER visits. 2x neb en route reports improved WOB. a/ox3 History Of Present Illness: 28-year-old female??past medical history aortic stenosis, obesity with high BMI, C. difficile, hyperlipidemia, hypertension, hypothyroidism, pulmonary hypertension, type 1 diabetes presents with??general malaise and fatigue, dyspnea, and diarrhea. ??Has been having this for several??days.?? She hasbeen seen in the ER recently??for similar symptoms but??symptoms became acutely worse today with worsening??dyspnea??which she states was not bad??yesterday or on prior visits.?? Nausea but no vomiting. ??Has some general abdominal pain that has been lingering for quite some time.?? No known feversat home. ??Generally feels unwell. Review of Systems: Dyspnea, malaise, fatigue Physical Exam Vitals & Measurements T:??38.4?C ??(Temporal Artery)?? HR:??108??(Monitored)?? HR:??108??(Peripheral)?? RR:??36?? BP:??102/71?? SpO2:??92%?? HT:??149??cm?? WT:??133??kg?? BMI:??59.91?? Pain Score:??6?? O2 Flow Rate:??8?? O2 Therapy:??Oxymask?? General: Alert and oriented, well nourished,?No??acute distress Eye: PERRL, EOMI,?Normal?conjunctiva HENT: Normocephalic Neck: Supple, non-tender, obese neck, there is no tenderness to the neck, full range of motion of the neck??in all directions and??neck flexion and extension and??to the left into the right Lungs: Clear to auscultation and percussion but she does have labored breathing with tachypnea Heart:?Normal? rate,?Regular??rhythm Abdomen: Soft, non-tender, non-distended Skin: Skin is warm, dry and pink no obvious evidence of erythema or cellulitis on full skin exam Neurologic: Awake, alert and oriented X4, CN II-XII intact, neurologic exam is normal,??but unable to ambulate patient, moving all extremities to command Psychiatric: Cooperative, appropriate mood and affect Medical Decision Makin-year-old female??past medical history significant as above presents with malaise, fatigue,??dyspnea, and abdominal pain. ??39.1, 141/90, 128, 26, 88% on room air. ??Per EMS reports patient was hypoxic and??the 70s on arrival, had a glucose in the 300s, was tachypneic in the mid 20s, had a lower blood pressure??95/65,??and was tachycardic in the 110s.?? Patient came to the ER was responding appropriately to questions, and??moderate respiratory distress with??labored breathing but relatively clear to auscultation bilaterally with the exception of some??distant crackles in bilateral bases.?? She was on a nonrebreather, transition to simple oxy mask at??8 to 10 L, oxygenation in the low??90s. ??On chart review her oxygenation??oscillates normally on room air from 88??to 92%. ??She is not on oxygen at home. ??She denies a history of smoking. ??Does have a history of asthma. ??She received2 DuoNeb's prior to arrival which she states did help her breathing somewhat. ??She is not wheezing on arrival to the ER. ?? EKG rate 118 sinus tachycardia normal axis and intervals no ST segment elevations or depressions. ?? Patient was given a liter of IV fluids. ??Blood cultures were drawn. ??WBC??increased to 10.8, up from 7.1 yesterday.?? pH 7.31, but no anion gap. ??Patient is not presenting with DKA despite hyperglycemia 516. ??She took??subcu insulin prior to arrival, will continue to recheck her glucose. ??Marline garzon has a transaminitis that appears to be chronic for her and does not reflect any new acute changesat this time. ??Beta hydroxybutyrate and lactate are both negative.?? Troponin was increased at 105, was uptrending to 226 on repeat with a BNP of 2900. ??This is most likely demand ischemia however given the uptrending troponins and??new oxygen requirement with elevated BNP, to err on the side of caution she was started on heparin. ??She has no contraindications to anticoagulation.?? Her TSH is normal. ??Procalcitonin slightly elevated at 1.1. ??UA does not show a source of infection. ??Flu COVID RSV is negative. ??CT of the head is negative.?? CT angio of the chest was repeated, there is no pulmonary embolus however??there are multifocal opacities bilaterally??which are new since yesterday. ??Patient was started on broad-spectrum antibiotics to cover for multifocal pneumonia, cefepime vancomycin and??azithromycin.?? Patient has been stable for several hours in the ER on oxime mask forsupplemental oxygenation, can escalate to BiPAP if needed,??put on maintenance fluids at 250 an hour. ??Patient did not receive??more fluid bolus because she is on diuretics??twice a day, mainly for??chronic fluid overload but she denies any known history of heart failure. ??Bedside echocardiogram shows ejection fraction appearing to be??largely normal however her body habitus makes it??hard to??o btain??clear pictures.?? Spoke with Donald lara who accepts admission for sepsis with likely pulmonary source. ??Patient stable and agreeable. Critical Care Time Spent Total critical care time: Approximately??100 minutes Due to a high probability of clinically significant, life threatening deterioration, the patient required my highest level of preparedness to intervene emergently and I personally spent this criticalcare time directly and personally managing the patient. [...] separately billable procedures and treating other patients. Please see MDM section and the rest of the note for further information on patient assessment and treatment. Procedure No Qualifying Data Assessment/Plan 1.??Multifocal pneumonia??J18.9,??Bilateral pneumonia??J18.9 2.??Sepsis??A41.9 3.??Acute hypoxic respiratory failure??J96.01 4.??Hyperglycemia??R73.9 5.??Transaminitis??R74.01 6.??Type 2 myocardial infarction??I21.A1 Orders: Blood Culture, Blood, Stat collect, ST - Stat, 10/13/23 17:11:00 EST, Once, Nurse collect, Print Label Blood Culture, Blood, Stat collect, ST - Stat, 10/13/23 17:11:00 EST, Once, Nurse collect, Print Label Clostridium Difficile, Stool, Stat Collect, 10/13/23 17:14:00 EST, Once, Nurse collect, Print Label Communication Order, 10/13/23 17:11:00 EST Communication Order, 10/13/23 17:10:00 EST Fecal Bacterial Pathogens by PCR [facility], Stool, Stat Collect, 10/13/23 17:14:00 EST, Once, Nurse collect, Print Label Nursing Task, 10/13/23 17:11:00 EST, Stop date 10/13/23 17:11:00 EST Nursing Task, 10/13/23 17:10:00 EST, Stop date 10/13/23 17:10:00 EST PT/ INR, Blood, Stat, 10/13/23 21:35:00 EST, Once, Nurse collect PTT, Blood, Stat, 10/13/23 21:35:00 EST, Once, Nurse collect Medication Reconciliation Unchanged atorvastatin (atorvastatin 40 mg oral tablet)1 [...] months)Use to monitor BS. Refills: 3. ?? [id number] Milligrams Oral (given by mouth) every day. [...] bedtime. correction factor of 50 units. ?? [id number] Micrograms Oral (given by mouth) every day. ?? naproxen (naproxen 500 mg oral delayed release tablet)1 tab Oral (given by mouth) 2 times a day. Refills: 0. ?? ondansetron (ondansetron 4 mg oral tablet)1 tab Oral (given by mouth) every 8 hours. Refills: 0. ?? ondansetron (ondansetron 4 mg oral tablet, disintegrating)1 tab Oral (given by mouth) 3 times a dayfor 3 Days. Refills: 0. ?? Other Prescription (ONETOUCH VERIO FLEX KIT)1 each by [facility] [place]. (non drug: combo route) [...] fracture (12/22/2020)???Adenoidectomy (09/10/2013)???Tonsillectomy (09/10/2003) Medication Administration Given azithromycin, IV Piggyback cefepime, IV Piggyback NS bolus, 1000 mL, Hydration Bolus NS bolus, 1000 mL, Hydration Bolus Ofirmev, 1000 mg, IV Piggyback vancomycin, 1000 mg, IV Piggyback Allergies rOPINIRole morphine Social History [...] and Differential?? LATEST RESULTS?? HISTORICAL RESULTS?? WBC?? 10/13/23 17:02?? 10.8 ??High?? 10/12/23?? 7.1?? RBC?? 10/13/23 17:02?? 4.1?? 10/12/23?? 4.3?? Hgb?? 10/13/23 17:02?? 12.1?? 10/12/23?? 12.7?? Hct?? 10/13/23 17:02?? 37.2?? 10/12/23?? 39.0?? MCV?? 10/13/23 17:02?? 91.6?? 10/12/23?? 90.9?? MCH?? 10/13/23 17:02?? 29.8?? 10/12/23?? 29.6?? MCHC?? 10/13/23 17:02?? 32.5?? 10/12/23?? 32.6?? RDW-CV?? 10/13/23 17:02?? 15.0 ??High?? 10/12/23?? 14.7 ??High?? Platelets?? 10/13/23 17:02?? 272?? 10/12/23?? 246?? Neutro Auto?? 10/13/23 17:02?? 65.7?? 10/12/23?? 68.9?? Lymph Auto?? 10/13/23 17:02?? 26.2?? 10/12/23?? 24.3?? [place] Auto?? 10/13/23 17:02?? 5.9?? 10/12/23?? 4.4?? Eos, Auto?? 10/13/23 17:02?? 1.3?? 10/12/23?? 1.1?? Basophil Auto?? 10/13/23 17:02?? 0.3?? 10/12/23?? 0.3?? Imm Gran Auto?? 10/13/23 17:02?? 0.6?? 10/12/23?? 1.0 ??High?? Neutro Absolute?? 10/13/23 17:02?? 7.1?? 10/12/23?? 4.9? Blood Gases?? LATEST RESULTS?? HISTORICAL RESULTS?? pH Mirza?? 10/13/23 17:02?? 7.31 ??Low?? 10/12/23?? 7.31 ??Low?? pCO2 Mirza?? 10/13/23 17:02?? 45?? 10/12/23?? 51 ??High?? pO2 Mirza?? 10/13/23 17:02?? 48?? 10/12/23?? 42?? HCO3 Venous?? 10/13/23 17:02?? 23?? 10/12/23?? 25?? O2 Sat Mirza?? 10/13/23 17:02?? 80?? 10/12/23?? 71?? CO2 Total Venous?? 10/13/23 17:02?? 24?? 10/12/23?? 27?? Base Excess Venous?? 10/13/23 17:02?? -3.8?? 10/12/23?? -1.6? Coagulation?? LATEST RESULTS?? HISTORICAL RESULTS?? D Dimer, (Quant.)?? 10/13/23 17:13?? 0.57 ??High?? 03/22/23?? 0.19? Routine Chemistry?? LATEST RESULTS?? HISTORICAL RESULTS?? Sodium Level?? 10/13/23 17:02?? 132 ??Low?? 10/12/23?? 133 ??Low?? Potassium Level?? 10/13/23 17:02?? 4.8?? 10/12/23?? 4.3?? Chloride Level?? 10/13/23 17:02?? 96 ??Low?? 10/12/23?? 98?? CO2?? 10/13/23 17:02?? 24?? 10/12/23?? 25?? Alk Phos?? 10/13/23 17:02?? 285 ??High?? 10/12/23?? 246 ??High?? AST?? 10/13/23 17:02?? 243 ??High?? 10/12/23?? 156 ??High?? ALT?? 10/13/23 17:02?? 265 ??High?? 10/12/23?? 218 ??High?? BUN?? 10/13/23 17:02?? 30 ??High?? 10/12/23?? 24 ??High?? Glucose Level?? 10/13/23 17:02?? 516 ??Critical?? 10/12/23?? 339 ??High?? Creatinine Level?? 10/13/23 17:02?? 1.20 ??High?? 10/12/23?? 1.01?? eGFR AA?? 10/13/23 17:02?? 64?? 10/12/23?? 79?? eGFR Non-AA?? 10/13/23 17:02?? 64?? 10/12/23?? 79?? Calcium Level?? 10/13/23 17:02?? 8.3 ??Low?? 10/12/23?? 8.5?? Protein Total?? 10/13/23 17:02?? 7.3?? 10/12/23?? 7.7?? Albumin Level?? 10/13/23 17:02?? 3.0 ??Low?? 10/12/23?? 3.2 ??Low?? Bilirubin Total?? 10/13/23 17:02?? 1.0?? 10/12/23?? 1.1 ??High?? Beta-Hydroxybutyrate?? 10/13/23 18:24?? <0.1?? 02/02/24?? 0.3?? Lactic Acid Lvl?? 10/13/23 17:02?? 1.7?? 07/08/23?? 1.6?? Lipase Level?? 10/13/23 17:02?? 12 ??Low?? 10/12/23?? 12 ??Low?? Magnesium Level?? 10/13/23 17:02?? 2.0?? 10/12/23?? 1.9? Cardiac Isoenzymes?? LATEST RESULTS?? HISTORICAL RESULTS?? Troponin-I?? 10/13/23 19:11?? 226.0 ??Critical?? 03/22/23?? 9.0?? NT-proBNP?? 10/13/23 17:02?? 2928 ??High?? 12/30/22?? 492 ??High? Testing?? LATEST RESULTS?? HISTORICAL RESULTS?? Beta hCG Qnt?? 10/13/23 17:02?? <1 ??Low?? 12/30/22?? <1 ??Low? Thyroid Studies?? LATEST RESULTS?? HISTORICAL RESULTS?? TSH?? 10/13/23 17:02?? 1.239?? 10/12/23?? 1.252? Endocrinology?? LATEST RESULTS?? HISTORICAL RESULTS?? Procalcitonin?? 10/13/23 17:02?? 1.11 ??High?? 07/08/23?? 1.27 ??High? UA Macroscopic?? LATEST RESULTS?? HISTORICAL RESULTS?? UA Color?? 10/13/23 17:20?? Yellow?? 10/11/23?? Yellow?? UA Appear?? 10/13/23 17:20?? Clear?? 10/11/23?? Clear?? UA Glucose?? 10/13/23 17:20?? Trace Abnormal?? 10/11/23?? Negative?? UA Bili?? 10/13/23 17:20?? Negative?? 10/11/23?? Negative?? UA Ketones?? 10/13/23 17:20?? Negative?? 10/11/23?? Negative?? UA Spec Grav?? 10/13/23 17:20?? 1.020?? 10/11/23?? 1.010?? UA Blood?? 10/13/23 17:20?? Negative?? 10/11/23?? Negative?? UA pH?? 10/13/23 17:20?? 5.0?? 10/11/23?? 6.5?? UA Protein?? 10/13/23 17:20?? Negative?? 10/11/23?? Negative?? UA Urobilinogen?? 10/13/23 17:20?? Positive Abnormal?? 10/11/23?? Normal?? UA Nitrite?? 10/13/23 17:20?? Negative?? 10/11/23?? Negative?? UA Leuk Est?? 10/13/23 17:20?? Negative?? 10/11/23?? Negative? Infectious Disease?? LATEST RESULTS?? HISTORICAL RESULTS?? Employed 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?? 10/13/23 17:20?? Unknown?? 10/12/23?? Unknown?? Symptomatic as defined by CDC??? 10/13/23 17:20?? Unknown?? 10/12/23?? Unknown?? Hospitalized due to COVID-19??? 10/13/23 17:20?? Unknown?? 12/30/22?? No?? In ICU??? 10/13/23 17:20?? Unknown?? 10/12/23?? Unknown?? Group care resident??? 10/13/23 17:20?? Unknown?? 10/12/23?? Unknown?? status??? 10/13/23 17:20?? Unknown?? 10/12/23?? Unknown?? SARS-CoV-2(Covid19)PCR([facility])?? 10/13/23 17:20?? Negative?? 12/30/22?? Negative?? Flu A ([facility])?? 10/13/23 17:20?? Negative?? 12/30/22?? Negative?? Flu B ([facility]OV[facility])?? 10/13/23 17:20?? Negative?? 12/30/22?? Negative?? RSV ([facility] [facility]OV[facility])?? 10/13/23 17:20?? Negative?? 12/30/22?? Negative? Electronically Signed on 10/13/23 09:47 PM Deyvi Rodriguez MD Nutrition and dietetics Progress note * Jasmeet Waite RD: PERFORM Event Display: Nutrition Note Authored Date: [id number] Nutrition Recommendations -Pt is being actively managed by counts include [facility] beds at the [facility] health team, recommend she see outpatient nutrition Nutrition Risk Level -High Assessment and Monitoring -Pt reports carb counting at home, denies eating over 60g of carbs per meal or 10-20g of carbs per snack, denies excessive snacking -Half eaten bag of Goldfish in the room -Blood glucose was 516mg/dL on admit, she reports this was due solely to stress -She has a CGM but no pump, currently on U500 insulin at home, 600 units daily mixed Humulin and Humalog. She was on half this dosage here at the hospital, following a consistent carb diet and experienced a hypoglycemic episode requiring intervention. 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 I believe further investigation is needed in an outpatient environment to determine the root cause of her hyperglycemia and related issues. ?? Nutrition Diagnosis -Altered nutrition related lab values related to poorly managed T1DM as evidenced by admission blood glucose reading of 516mg/dL Nutrition Goals -Blood glucose within target range. Fasting - 80-130mg/dL, 2 hr Post-Prandial- 180mg/dL or lower Nutrition Interventions -Provided contact information for outpatient follow-up. She will be meeting with the personal development educator today. Nutrition Education -N/A Anthropometrics/Estimated Needs [id number] kg(Recorded: 10/15/2023 04:40 EST) [id number] cm(Recorded: 10/13/2023 16:48 EST) Body Mass Index59.91 kg/m2(Recorded: 10/13/2023 16:48 EST) Reason for Visit SOB, weakness Problem List/Past Medical History Ongoing DEAN (acute [...] and Grandfather (P). Diet Orders Diet Order, 10/13/23 22:39:00 EST, Diabetic, 1800 kcal Allergies rOPINIRole morphine Nutrition Lab Results Test Name Test Result Date/Time WBC 7.5 x10^3/mcL 10/15/2023 07:00 EST Hgb 11.1 g/dL 10/15/2023 07:00 EST Hct 34.4 % 10/15/2023 07:00 EST MCV 91.2 fL 10/15/2023 07:00 EST Platelets 204 x10^3/mcL 10/15/2023 07:00 EST INR 1.1 10/13/2023 21:47 EST Partial Thromboplastin Time 32 seconds 10/14/2023 03:55 EST Sodium Level 139 mmol/L 10/15/2023 07:00 EST Potassium Level 3.8 mmol/L 10/15/2023 07:00 EST Chloride Level 102 mmol/L 10/15/2023 07:00 EST CO2 28 mmol/L 10/15/2023 07:00 EST Alk Phos 277 unit/L 10/15/2023 07:00 EST ALT 282 unit/L 10/15/2023 07:00 EST BUN 31 mg/dL 10/15/2023 07:00 EST Glucose Level 189 mg/dL 10/15/2023 07:00 EST Creatinine Level 1.12 mg/dL 10/15/2023 07:00 EST Phosphorus Level 4.5 mg/dL 10/15/2023 07:00 EST Albumin Level 2.8 g/dL 10/15/2023 07:00 EST Bilirubin Total 0.5 mg/dL 10/15/2023 07:00 EST Magnesium Level 1.8 mg/dL 10/15/2023 07:00 EST Medications Inpatient acetaminophen, 1000 mg= 2 tab, Oral, every 6 hr, PRN albuterol 2.5 mg/3 mL (0.083%) inhalation solution, 2.5 mg= 3 mL, Nebulized Inhalation, every 2 hr RT, PRN azithromycin cefepime Dextrose 50% intravenous solution, 12.5 g= 25 mL, IV Push, As Directed, PRN Dextrose 50% intravenous solution, 25 g= 50 mL, IV Push, As Directed, PRN DuoNeb, 3 mL, Inhale, QID RT, PRN Florastor, 250 mg= 1 cap, Oral, BID GlucaGen, 1 mg, Intramuscular, As Directed, PRN glucose 40% oral gel, 15 g= 37.5 mL, Oral, As Directed, PRN glucose 40% oral gel, 30 g= 75 mL, Oral, As Directed, PRN HumuLIN R KwikPen (Concentrated) 500 units/mL subcutaneous solution, 100 unit(s)/ 0.2 ml, Subcutaneous, Daily HumuLIN R KwikPen (Concentrated) 500 units/mL subcutaneous solution, 75 unit(s) / 0.15 ml, Subcutaneous, Daily HumuLIN R KwikPen (Concentrated) 500 units/mL subcutaneous solution, 25 unit(s) / 0.05 ml, Subcutaneous, every night at bedtime ibuprofen, 400 mg= 2 tab, Oral, every 6 hr, PRN insulin lispro (HumaLog) correction- resistant, Resistant Scale, Subcutaneous, QID(ACHS) levothyroxine, 250 mcg, Oral, Daily lidocaine 1% injectable solution, 1 mg= 0.1 mL, Intradermal, As Directed, PRN Mylanta, 15 mL, Oral, every 6 hr, PRN Normal Saline Flush, 10 mL, IV Push, every 12 hr (rojas) ondansetron, 4 mg= 2 mL, IV Push, every 6 hr, PRN phenol 1.4% topical spray, 1 sprays, Topical, every 2 hr, PRN Sodium Chloride 0.9% 1,000 mL, 1000 mL, IV torsemide, 60 mg= 3 tab, Oral, BID vancomycin, 125 mg= 1 cap, Oral, QID Home atorvastatin 40 mg oral tablet, 40 mg= 1 tab, Oral, Daily B-D UF III SHORT PEN NEED MIS, See instructions cetirizine 10 mg oral tablet, 1 tab, Oral, BID Dexcom G6 sensors, See instructions Dexcom Sensors G6, change every 10 days, See instructions, 3 refills Dexcom Transmitter, change every 3 months, See instructions, 3 refills elderberry, 350 mg, Oral, Daily Glucagon Emergency Kit for Low Blood Sugar, See Instructions, PRN HumaLOG Mina KwikPen 100 units/mL injectable solution, 30 units, Subcutaneous, every morning HumuLIN R KwikPen (Concentrated) 500 units/mL subcutaneous solution, See Instructions levothyroxine, 250 mcg, Oral, Daily lisinopril 5 mg oral tablet, 5 mg= 1 tab, Oral, Daily ONETOUCH VERIO FLEX KIT ONETOUCH VERIO MARLENE torsemide 20 mg oral tablet, 3 tab, Oral, BID Electronically Signed on 10/15/23 01:[address] Progress note * Hortensia Nieto MD: PERFORM Event Display: Progress Note - Physician Authored Date: [id number] MARIELOS MIRAMONTES :1995 Age:28 years Sex:Female Visit Date:10/13/2023 Primary Care Physician: Jamila Archer MD Subjective The patient is being seen examined as a follow-up for acute hypoxic respiratory failure secondary to multifocal bilateral pneumonia, elevated troponin secondary to demand ischemia, hyperglycemia in the setting of insulin-dependent type 1 diabetes mellitus, transaminitis, hypertension, hypothyroidism.?? Patient continues to improve and has been weaned off of O2 via nasal cannula but is still??tachypneic and dyspneic. ??Cough is still present but nonproductive. ??Fevers and chills send??sepsis has resolved. ??Patient did have C. difficile testing yesterday is positive for C. difficile. ??No other events overnight. ??Remained hemodynamically stable. Review of Systems Constitutional:??No fevers, ??No chills, ??No sweats Eye: ??No recent visual problems ENT: ??No ear pain, ??No nasal congestion, ??No sore throat Respiratory:??Positive shortness of breath, positive cough Cardiovascular: ??No Chest pain, ??No palpitations, [...] X 4 Psychiatric: ??No anxiety, ??No depression Objective Vitals & Measurements T:??36.1?C ??(Temporal Artery)?? TMIN:??35.8?C ??(Temporal Artery)?? TMAX:??36.5?C ??(Temporal Artery)?? HR:??92??(Peripheral)?? HR:??94??(Monitored)?? RR:??18?? BP:??99/67?? SpO2:??92%??WT:??140??kg?? Pain Score:??5?? O2 Flow Rate:??2?? O2 Therapy:??Room air?? Physical Exam General: Alert and oriented, well [...] Psychiatric: Cooperative, appropriate mood and affect. Assessment/Plan 1.??Multifocal pneumonia??J18.9 Acute hypoxic respiratory failure secondary to multifocal??bilateral pneumonia??likely mixed viral as well as superimposed bacterial pneumonia with groundglass opacities and denser consolidations as well.?? Respiratory failure is still present but??significantly improved and was able to be weaned off of oxygen??this morning??but still??hypoxic with ambulation??and short of breath. ??Continue cefepime and azithromycin.?? Continue with incentive spirometry.?? Discontinue scheduled DuoNebs and continue as needed. 2.??Type 2 myocardial infarction??I21.A1 ??Elevated troponin which have peaked and trending down??likely due to demand ischemia without EKG changes consistent with acute ischemia??or??chest pain.?? Demand ischemia secondary to acute hypoxicrespiratory failure and??pneumonia. 3.??Acute hypoxic respiratory failure??J96.01 ??As above. 4.??Hyperglycemia??R73.9 ??Episodes of hypoglycemia and hyperglycemia??in the setting of insulin- dependent type 1 diabetes mellitus. ??Continue??home U-500 Humulin??but will decrease dose while in the hospital at 100 units before breakfast, 75 units??before lunch and 25 units before dinner.?? Will continue with insulin sliding scale as well. ??Chemstrips AC plus at bedtime. ??Diabetic diet. 5.??Transaminitis??R74.01 ??Transaminitis likely related to??underlying nonalcoholic??steatohepatitis??and fatty liver. ??Patient does not??lose a considerable amount of weight she is at high risk for??cirrhosis. ??Also possibility of worsening due to infection.?Continue to monitor. 6.??HTN (hypertension)??I10 7.??HLD (hyperlipidemia)??E78.5 ??Holding statin in light of transaminitis.? 8.??Hypothyroidism??E03.9 ??Continue levothyroxine 250 mcg p.o. daily. 9.??Morbid obesity??E66.01 ??Morbidly obese with a BMI of 60. ??Lifestyle modifications and weight loss. ??She was counseled on the importance of??weight loss.?? 10.??Type 1 diabetes??E10.9 ??As above. 11.??Asthma??J45.909 ??No wheezing currently does not appear to be in exacerbation.?? Albuterol nebulizer as needed. 12.??DEAN (acute kidney injury)??N17.9 ??Mild renal azotemia secondary to infection.?? Resolved with IV fluids. 13.??C. difficile diarrhea??A04.72 Patient with loose stools few days prior that was quite severe is improving but still liquid stools. ??C. difficile testing returned positive yesterday. ??Continue vancomycin??125 mg p.o.??4 times daily. ??Will need longer course with taper due to recurrence of C. difficile. Orders: ibuprofen, 400 mg = 2 tab, Oral, Tab, every 6 hr for 30 days, PRN pain, moderate, First Dose: 10/14/23 10:53:00 EST, Stop Date: 11/13/23 10:52:00 EST, Physician Stop, Routine DuoNeb, 3 mL, Inhale, Soln, QID RT, PRN shortness of breath, First Dose: 10/15/23 9:59:00 EST, Routine phenol 1.4% topical spray, 1 sprays, Topical, [place], every 2 hr, PRN sore throat, First Dose: 10/14/23 15:07:00 EST, Routine vancomycin, 125 mg = 1 cap, Oral, Cap, QID, Antibiotic Indication Clostridium diff infec (oral vanco only), First Dose: 10/14/23 16:00:00 EST, Routine Electronically Signed on 10/15/23 10:01 AM Hortensia Nieto MD * Hortensia Nieto MD: PERFORM, MODIFY Event Display: Progress Note - Physician Authored Date: [id number] MARIELOS MIRAMONTES :1995 Age:28 years Sex:Female Visit Date:10/13/2023 Primary Care Physician: Jamila Archer MD Subjective The patient is being seen examined as a follow-up for acute hypoxic respiratory failure and sepsis secondary to multifocal??pneumonia/bilateral pneumonia, elevated troponin secondary to demand ischemia,??hyperglycemia,??insulin- dependent type 1 diabetes mellitus, transaminitis, hypertension, hypothy roidism.?? Patient??has been weaned down on oxygen but still at 5 L this morning. ??Dyspnea still present??but minimally improved. ??Cough is??present but nonproductive. ??Fevers and chills have improved. ??No acute events overnight. ??Remained hemodynamically stable. Review of Systems Constitutional:??Positive fevers, ??No chills, ??No sweats Eye: ??No recent visual problems ENT: ??No ear pain, ??No nasal congestion, ??No sore throat Respiratory:??Positive shortness of breath, positive cough Cardiovascular: ??No Chest pain, ??No palpitations, ??No syncope Gastrointestinal: ??Nonausea, ??No vomiting, ??No diarrhea Genitourinary: ??No hematuria Kamran/Lymph: ??No bruising tendency, ??No swollen lymph glands Endocrine: ??No excessive thirst, No excessive hunger Musculoskeletal: No back pain, No neck pain, No joint pain, No muscle pain, No decreased range of motion Integumentary: ??No rash, ??No pruritus, ??No abrasions Neurologic: Alert & oriented X 4 Psychiatric: ??No anxiety, ??No depression Objective Vitals & Measurements T:??36.1?C ??(Temporal Artery)?? TMIN:??36.1?C ??(Temporal Artery)?? TMAX:??39.1?C ??(Temporal Artery)?? HR:??95??(Peripheral)?? RR:??28?? BP:??135/90?? SpO2:??96%?? HT:??149??cm?? WT:??138.4??kg?? BMI:??59.91?? Pain Score:??6?? O2 Flow Rate:??5?? O2 Therapy:??[place]ymask?? Physical Exam General: Alert and oriented, well [...] Psychiatric: Cooperative, appropriate mood and affect. Assessment/Plan 1.??Multifocal pneumonia??J18.9 Acute hypoxic respiratory failure secondary to multifocal pneumonia in the setting of??chronic morbid obesity??and recurrent episodes of pneumonia. ??Patient was weaned down to??3 L of oxygen. ??Continue cefepime and azithromycin.?? Continue attempt to wean down on O2 as tolerated. 2.??Type 2 myocardial infarction??I21.A1 Elevated troponin which have peaked and trending down??likely due to demand ischemia without EKG changes consistent with acute ischemia??or??chest pain.?? Was placed on heparin drip in the emergency department??and??with this multifocal pneumonia, respiratory failure and sepsis this is more than likely demand ischemia and will discontinue heparin infusion.?? Continue 3.??Acute hypoxic respiratory failure??J96.01 As above. 4.??Hyperglycemia??R73.9 Hyperglycemia in the setting of insulin-dependent type 1 diabetes mellitus. ??Continue??home U-500 Humulin??but will decrease dose while in the hospital at 100 units before breakfast, 75 units??before lunch and 25 units before dinner.?? Will continue with insulin sliding scale as well. ??ChemstripsAC plus at bedtime. ??Diabetic diet. 5.??Transaminitis??R74.01 Transaminitis likely related to??underlying nonalcoholic??steatohepatitis??and fatty liver. ??Patient does not??lose a considerable amount of weight she is at high risk for??cirrhosis. ??Also possibility of worsening due to infection.?Continue to monitor. 6.??HTN (hypertension)??I10 7.??HLD (hyperlipidemia)??E78.5 Holding statin in light of transaminitis.? 8.??Hypothyroidism??E03.9 Continue levothyroxine 250 mcg p.o. daily. 9.??Morbid obesity??E66.01 Morbidly obese with a BMI of 60. ??Lifestyle modifications and weight loss. ??She was counseled on the importance of??weight loss.?? 10.??Type 1 diabetes??E10.9 As above. 11.??Asthma??J45.909 No wheezing currently does not appear to be in exacerbation.?? Albuterol nebulizer as needed. 12.??DEAN (acute kidney injury)??N17.9 Mild renal azotemia secondary to infection.?? Resolved with IV fluids. Orders: levothyroxine, 250 mcg, Oral, Tab, Daily, First Dose: 10/14/23 8:07:00 EST, NOW u500 humulin, 100 units, Subcutaneous, Misc, Once, First Dose: 10/14/23 9:00:00 EST, Stop Date: 10/14/23 9:00:00 EST, Routine HumuLIN R KwikPen (Concentrated) 500 units/mL subcutaneous solution, 100 units before breakfast, 75units before lunch,, Intradermal, AC, First Dose: 10/14/23 11:30:00 EST, Routine Comprehensive Metabolic Panel, Blood, Routine, 10/15/23 6:00:00 EST, every morning, Lab Collect Diet Order, 10/13/23 22:39:00 EST, Diabetic, 1800 kcal GGT, Blood, Add On, 10/14/23 7:49:00 EST, Once, Lab Collect, [id number] Hepatic Function Panel, Blood, Add On, 10/14/23 7:49:00 EST, Once, Lab Collect Incentive Spirometry by Patient, 10/14/23 8:26:00 EST, Predisposing Condition for Atelectasis Electronically Signed on 10/14/23 08:33 AM Hortensia Nieto MD Electronically Signed on 10/15/23 09:56 AM Hortensia Nieto MD History and physical note * Mahesh Pena [employer]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 ??Patient had his third ER visit in as many days.?? She has an extensive medical history that includes??type 1 diabetes, obstructive sleep apnea, hypertension, hyperlipidemia, recent C. difficile as well.?? And has had multiple hospitalizations.?? CT scan??of the chest yesterday was clear although todaydemonstrates bilateral pneumonia.?? No evidence of pulmonary emboli. ??She is compliant with her CPAP. ??She has also been hyperglycemic.?? Denies??fever, nausea, vomiting.?? Denies chest pain but complains of shortness of breath??and being very weak not dizzy and denies changes in urinary habits. ??Case was discussed with the ER provider prior to admission.?? She was found with elevated troponins??started out in the 100s and have increased to the 200s??she is placed on a heparin drip.?? Patient will be admitted as an inpatient??for continued IV antibiotics and anticoagulation. ??We will trend her cardiac enzymes and repeat all labs in the morning. ??Condition is guarded. Review of Systems Constitutional: ??No fevers, ??No chills, ??No sweats Eye: ??No recent visual problems ENT: ??No ear pain, ??No nasal congestion, ??No sore throat Respiratory:??Positive shortness of breath, ??No cough Cardiovascular: ??No Chest pain, ??No palpitations, ??No syncope Gastrointestinal: ??Nonausea, ??No vomiting, ??No diarrhea Genitourinary: ??No hematuria Kamran/Lymph: ??No bruising tendency, ??No swollen lymph glands Endocrine: ??No excessive thirst, No excessive hunger Musculoskeletal: No back pain, No neck pain, No joint pain, No muscle pain, No decreased range of motion Integumentary: ??No rash, ??No pruritus, ??No abrasions Neurologic: Alert & oriented X 4 Psychiatric: ??No anxiety, ??No depression Physical Exam Vitals & Measurements T:??37?C ??(Temporal Artery)?? TMIN:??36.9?C ??(Temporal Artery)?? TMAX:??39.1?C ??(Temporal Artery)?? HR:??106??(Peripheral)?? HR:??106??(Monitored)?? RR:??28?? RR:??28??(Total)?? BP:??116/83?? SpO2:??99%?? HT:??149??cm?? WT:??138.4??kg?? BMI:??59.91?? Pain Score:??0?? O2 Flow Rate:??4? ? O2 Therapy:??BIPAP?? General: Alert and oriented, well nourished, no [...] Psychiatric: Cooperative, appropriate mood and affect. Assessment/Plan 1.??Multifocal pneumonia??J18.9,??Bilateral pneumonia??J18.9 -??Admit as an inpatient -Cefepime 1 g IV every 8 hours -Azithromycin 500 mg IV daily -DuoNebs 4 times per day -Probiotic p.o. twice daily -Tylenol for fever headache -Zofran for nausea and vomiting -CBC, BMP, mag, Phos in the morning Ordered: PSO Admit to Inpatient, Semi-Private, Inpatient, Hortensia Nieto MD, 10/13/23 21:36:00 EST, 10/13/2420:36:00 EST, 10/13/23 21:36:00 EST, 2 midnights or more but less than 96 hrs ?? 2.??Type 2 myocardial infarction??I21.A1 -??Maintain telemetry -Trend troponin -Heparin drip ?? 3.??Acute hypoxic respiratory failure??J96.01 -??Oxygen to maintain saturations above 92% -DuoNebs 4 times per day ?? 4.??Hyperglycemia??R73.9 -??Diabetic diet -High-dose sliding scale with q. ACHS coverage ?? 5.??Transaminitis??R74.01 -chronic ?? 6.??HTN (hypertension)??I10 -??Blood pressure currently under control -Continue home medications -Monitor vitals per routine ?? Orders: acetaminophen, 1,000 mg = 2 tab, Oral, Tab, every 6 hr, PRN fever, First Dose: 10/13/23 22:39:00 EST, Routine Mylanta, 15 mL, Oral, Susp, every 6 hr, PRN dyspepsia, First Dose: 10/13/23 22:39:00 EST, Routine azithromycin, 500 mg = 1 EA, IV Piggyback, Powder-Inj, every 24 hr, Antibiotic Indication Pneumonia- CAP, Administer over: 1 hr, First Dose: 10/14/23 21:00:00 EST, Routine, 250 mL/hr cefepime, 1 g = 1 EA, IV Piggyback, Powder-Inj, every 8 hr, Antibiotic Indication Pneumonia- CAP, Administer over: 0.5 hr, First Dose: 10/14/23 6:00:00 EST, Routine, 200 mL/hr GlucaGen, 1 mg, Intramuscular, Powder-Inj, As Directed, PRN low blood sugar, First Dose: 10/13/23 22:39:00 EST, Routine glucose 40% oral gel, 15 g = 37.5 mL, Oral, Gel, As Directed, PRN low blood sugar, First Dose: 10/13/23 22:39:00 EST, Routine glucose 40% oral gel, 30 g = 75 mL, Oral, Gel, As Directed, PRN low blood sugar, First Dose: 10/13/23 22:39:00 EST, Routine Dextrose 50% intravenous solution, 12.5 g 25 mL, IV Push, Soln-IV, As Directed, PRN low blood sugar, First Dose: 10/13/23 22:39:00 EST, Routine Dextrose 50% intravenous solution, 25 g 50 mL, IV Push, Soln-IV, As Directed, PRN low blood sugar, First Dose: 10/13/23 22:39:00 EST, Routine insulin lispro (HumaLog) correction- resistant, Resistant Scale, Subcutaneous, Soln, QID(ACHS), First Dose: 10/14/23 7:30:00 EST, Routine DuoNeb, 3 mL, Inhale, Soln, QID RT, First Dose: 10/13/23 22:39:00 EST, STAT lidocaine 1% injectable solution, 1 mg 0.1 mL, Intradermal, Soln, As Directed, PRN other (see comment), First Dose: 10/13/23 22:39:00 EST, Routine ondansetron, 4 mg = 2 mL, IV Push, Soln, every 6 hr, PRN nausea/vomiting, First Dose: 10/13/23 22:39:00 EST, Routine Florastor, 250 mg = 1 cap, Oral, Cap, BID, First Dose: 10/13/23 23:24:00 EST, Routine Normal Saline Flush, 10 mL, IV Push, Soln, every 12 hr (rojas), First Dose: 10/14/23 9:00:00 EST, Routine Sodium Chloride 0.9% 1,000 mL, Total Volume (mL): 1,000, 1,000 mL, Soln-IV, IV, 30 mL/hr, Start Date: 10/13/23 22:39:00 EST, 133 kg, Populate Charting Weight From Order, 2.35, m2 Ambulate as Tolerated, 10/13/23 22:39:00 EST, PRN Basic Metabolic Panel, Blood, Routine, 10/14/23 6:00:00 EST, every morning, for 3 days, Lab Collect Blood Glucose Monitoring POC, 10/13/23 22:39:00 EST, QID(ACHS), 10/14/23 7:30:00 EST Cardiac Monitoring, 10/13/23 22:39:00 EST, Telemetry CBC w/ Diff, Blood, Routine, 10/14/23 6:00:00 EST, every morning, for 3 days, Lab Collect Diet Order, 10/13/23 22:39:00 EST, Diabetic, Salt Restricted Magnesium Level, Blood, Routine, 10/14/23 6:00:00 EST, every morning, for 3 days, Lab Collect Notify Provider of Vital Signs, 10/13/23 22:39:00 EST, SpO2 < 92% on 2L O2 NC, T > 101.5, HR > 100, HR < 50, SBP greater than 160, SBP less than 90, DBP greater than 90, DBP less than 50,Resp Rate greater than 30, Resp Rate less than 8, Constant Indicator Nursing Task, 10/13/23 22:39:00 EST, Constant order Nursing Task, 10/13/23 22:39:00 EST, Constant order Oxygen Therapy, SpO2 goal 90% or greater, PRN, Cori Chatman Phosphorus Level, Blood, Routine, 10/14/23 6:00:00 EST, every morning, for 3 days, Lab Collect PTT, Blood, Timed Study, 10/14/23 3:45:00 EST, Once, Lab Collect Resuscitation Status, 10/13/23 22:39:00 EST, Full Code Troponin-I, Blood, Timed Study, 10/14/23 1:00:00 EST, every 6 hr, for 3 times, Lab Collect Vital Signs, 10/13/23 22:39:00 EST, Constant order, every 4 hrs Weight, 10/13/23 22:39:00 EST, every morning Home meds have been reviewed and reconciled in the medical record Problem List/Past Medical History Ongoing Aortic stenosis [...] 2 tab, Oral, every 6 hr, PRN azithromycin cefepime Dextrose 50% intravenous solution, 12.5 g= 25 mL, IV Push, As Directed, PRN Dextrose 50% intravenous solution, 25 g= 50 mL, IV Push, As Directed, PRN DuoNeb, 3 mL, Inhale, QID RT Florastor, 250 mg= 1 cap, Oral, BID GlucaGen, 1 mg, Intramuscular, As Directed, PRN glucose 40% oral gel, 15 g= 37.5 mL, Oral, As Directed, PRN glucose 40% oral gel, 30 g= 75 mL, Oral, As Directed, PRN heparin 25,000 units + Sodium Chloride 0.45% 250 mL insulin lispro (HumaLog) correction- resistant, Resistant Scale, Subcutaneous, QID(ACHS) lidocaine 1% injectable solution, 1 mg= 0.1 mL, Intradermal, As Directed, PRN Mylanta, 15 mL, Oral, every 6 hr, PRN Normal Saline Flush, 10 mL, IV Push, every 12 hr (rojas) ondansetron, 4 mg= 2 mL, IV Push, every 6 hr, PRN Sodium Chloride 0.9% 1,000 mL, 1000 mL, IV Home atorvastatin 40 mg oral tablet, 40 mg= 1 tab, Oral, Daily B-D UF III SHORT PEN NEED MIS, See instructions cetirizine 10 mg oral tablet, 1 tab, Oral, BID chlorthalidone 25 mg oral tablet, 1 tab, Oral, Daily colchicine 0.6 mg oral tablet, 0.6 mg= 1 tab, Oral, BID Dexcom G6 sensors, See instructions Dexcom Sensors G6, change every 10 days, See instructions, 3 refills Dexcom Transmitter, change every 3 months, See instructions, 3 refills elderberry, 350 mg, Oral, Daily Glucagon Emergency Kit for Low Blood Sugar, See Instructions, PRN HumaLOG Mina KwikPen 100 units/mL injectable solution, See Instructions HumuLIN R KwikPen (Concentrated) 500 units/mL subcutaneous solution, 200 units, Intradermal, AC levothyroxine, 250 mcg, Oral, Daily naproxen 500 mg oral delayed release tablet, 500 mg= 1 tab, Oral, BID ondansetron 4 mg oral tablet, 4 mg= 1 tab, Oral, every 8 hr ondansetron 4 mg oral tablet, disintegrating, 4 mg= 1 tab, Oral, TID ONETOUCH VERIO FLEX KIT ONETOUCH VERIO MARLENE senna 25 mg oral tablet, 25 mg= 1 tab, Oral, Daily torsemide 20 mg oral tablet, 3 tab, Oral, BID Allergies rOPINIRole morphine Social History Alcohol Current, [...] Lab Results Test Name Test Result Date/Time pH Mirza 7.31 pH unit(s) 10/13/2023 17:02 EST pCO2 Mirza 45 mmHg 10/13/2023 17:02 EST pO2 Mirza 48 mmHg 10/13/2023 17:02 EST HCO3 Venous 23 mmol/L 10/13/2023 17:02 EST O2 Sat Mirza 80 % 10/13/2023 17:02 EST CO2 Total Venous 24 mmol/L 10/13/2023 17:02 EST Base Excess Venous -3.8 mmol/L 10/13/2023 17:02 EST WBC 10.8 x10^3/mcL 10/13/2023 17:02 EST RBC 4.1 x10^6/mcL 10/13/2023 17:02 EST Hgb 12.1 g/dL 10/13/2023 17:02 EST Hct 37.2 % 10/13/2023 17:02 EST MCV 91.6 fL 10/13/2023 17:02 EST MCH 29.8 pg 10/13/2023 17:02 EST MCHC 32.5 g/dL 10/13/2023 17:02 EST RDW-CV 15.0 % 10/13/2023 17:02 EST Platelets 272 x10^3/mcL 10/13/2023 17:02 EST Neutro Auto 65.7 % 10/13/2023 17:02 EST Lymph Auto 26.2 % 10/13/2023 17:02 EST [place] Auto 5.9 % 10/13/2023 17:02 EST Eos, Auto 1.3 % 10/13/2023 17:02 EST Basophil Auto 0.3 % 10/13/2023 17:02 EST Imm Gran Auto 0.6 % 10/13/2023 17:02 EST Neutro Absolute 7.1 x10^3/mcL 10/13/2023 17:02 EST Prothrombin Time 10.7 seconds 10/13/2023 21:47 EST INR 1.1 10/13/2023 21:47 EST Partial Thromboplastin Time 45 seconds 10/13/2023 21:47 EST D Dimer, (Quant.) 0.57 mg/L 10/13/2023 17:13 EST Sodium Level 132 mmol/L 10/13/2023 17:02 EST Potassium Level 4.8 mmol/L 10/13/2023 17:02 EST Chloride Level 96 mmol/L 10/13/2023 17:02 EST CO2 24 mmol/L 10/13/2023 17:02 EST Alk Phos 285 unit/L 10/13/2023 17:02 EST AST 243 unit/L 10/13/2023 17:02 EST ALT 265 unit/L 10/13/2023 17:02 EST BUN 30 mg/dL 10/13/2023 17:02 EST Glucose Level 516 mg/dL 10/13/2023 17:02 EST Creatinine Level 1.20 mg/dL 10/13/2023 17:02 EST eGFR AA 64 10/13/2023 17:02 EST eGFR Non-AA 64 10/13/2023 17:02 EST Calcium Level 8.3 mg/dL 10/13/2023 17:02 EST Protein Total 7.3 g/dL 10/13/2023 17:02 EST Albumin Level 3.0 g/dL 10/13/2023 17:02 EST Bilirubin Total 1.0 mg/dL 10/13/2023 17:02 EST Beta-Hydroxybutyrate <0.1 mmol/L 10/13/2023 18:24 EST Lactic Acid Lvl 1.7 mmol/L 10/13/2023 17:02 EST Lipase Level 12 unit/L 10/13/2023 17:02 EST Magnesium Level 2.0 mg/dL 10/13/2023 17:02 EST Glucose POC 139 mg/dL 10/13/2023 22:55 EST Troponin-I 226.0 pg/mL 10/13/2023 19:11 EST Troponin-I 105.8 pg/mL 10/13/2023 17:02 EST NT-proBNP 2928 pg/mL 10/13/2023 17:02 EST Beta hCG Qnt <1 mIntlUnit/mL 10/13/2023 17:02 EST TSH 1.239 mcIntlUnit/mL 10/13/2023 17:02 EST Procalcitonin 1.11 ng/mL 10/13/2023 17:02 EST UA Color YELLOW. 10/13/2023 17:20 EST UA Appear CLEAR. 10/13/2023 17:20 EST UA Glucose TRACE. 10/13/2023 17:20 EST UA Bili NEGATIVE 10/13/2023 17:20 EST UA Ketones NEGATIVE 10/13/2023 17:20 EST UA Spec Grav 1.020 10/13/2023 17:20 EST UA Blood NEGATIVE 10/13/2023 17:20 EST UA pH 5.0 10/13/2023 17:20 EST UA Protein NEGATIVE 10/13/2023 17:20 EST UA Urobilinogen 1.0 Uro 10/13/2023 17:20 EST UA Nitrite NEGATIVE 10/13/2023 17:20 EST UA Leuk Est NEGATIVE 10/13/2023 17:20 EST Employed 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 Unknown 10/13/2023 17:20 EST Symptomatic as defined by CDC? Unknown 10/13/2023 17:20 EST Hospitalized due to COVID-19? Unknown 10/13/2023 17:20 EST In ICU? Unknown 10/13/2023 17:20 EST Group care resident? Unknown 10/13/2023 17:20 EST status? Unknown 10/13/2023 17:20 EST SARS-CoV-2(Covid19)PCR(GXpert COVFLURSV) NEGATIVE 10/13/2023 17:20 EST Flu A (GXpert COVFLURSV) NEGATIVE 10/13/2023 17:20 EST Flu B (GXpert COVFLURSV) Neg-GeneXPert 10/13/2023 17:20 EST RSV (GXpert COVFLURSV) Neg-GeneXPert 10/13/2023 17:20 EST Diagnostic Results ?? FINDINGS:?? Lungs: Low lung volumes. Increased perihilar and interstitial?? markings consistent with vascular congestion or developing?? infiltrate.?? Pleural spaces: Unremarkable. No pleural effusion. No pneumothorax.?? Heart/Mediastinum: Enlarged cardiac silhouette.?? Bones/joints: Unremarkable for patient's age. ? IMPRESSION:?? 1. ?? Hypoventilation. Increased interstitial and perihilar markings.?? 2. ?? Prominent cardiac silhouette.?? [1] INDINGS:?? Pulmonary arteries: No evidence of pulmonary embolus.?? Aorta: Unremarkable. No aortic aneurysm. No aortic dissection.? Lungs: There are new predominantly peripheral patchy ground-glass?? densities within both lungs. Area of consolidation medially in the?? left lower lobe and in the posterior segment of the left upper lobe?? and anterior segment of the left upper lobe. Pleural-based nodules in?? the right upper lobe are again noted without change.?? Pleural spaces: No pleural effusion.?? Heart: Unremarkable. No cardiomegaly. No pericardial effusion.?? Lymph nodes: Unremarkable. No enlarged lymph nodes.? Bones/joints: Unremarkable. No acute fracture.?? Soft tissues: Unremarkable.? IMPRESSION:?? 1. ?? No evidence of pulmonary embolus?? 2. ?? New patchy ground-glass densities and consolidation bilaterally.?? Infectious etiologies are at the top of the differential diagnosis to?? include COVID. This has a predominant peripheral distribution which?? makes pulmonary edema less likely.?? [2] ?? FINDINGS:?? Brain: Unremarkable. No intracranial hemorrhage. Unremarkable white?? matter. No mass effect. ?? Cerebral ventricles: No ventriculomegaly.?? Paranasal sinuses: Mucosal thickening of the ethmoid air cells. ?? Mucosal thickening of the left maxillary sinus. Mastoid air cells: Visualized mastoid air cells are well aerated.?? Bones/joints: Unremarkable. No acute fracture.?? Soft tissues: Soft tissue swelling over the forehead and left?? temporal region.? IMPRESSION:?? 1. ?? No acute intracranial abnormality.?? 2. ?? Soft tissue swelling over the forehead and left temporal region.?? 3. ?? Sinus disease.?? [3] [1]??XR Chest 1 View; DomainUser, Generated 10/13/2023 17:25 EST [2]??CT Angio Chest; DomainUser, Generated 10/13/2023 19:14 EST [3]??CT Brain/Head w/o Contrast; DomainUser, Generated 10/13/2023 17:55 EST Electronically Signed on 10/14/23 12:52 AM Mahesh Pena MACHINE ASSEMBLER SUPERVISOR * Hortensia Nieto MD: PERFORM Event Display: History and Physical Authored Date: [id number] Case was discussed with nurse practitioner and agree with assessment and plan as above. ??Admitted for acute hypoxic respiratory failure and sepsis secondary to multifocal??bilateral pneumonia.?? Electronically Signed on 10/14/23 08:41 AM Hortensia Nieto MD Discharge summary * Hortensia Nieto MD: PERFORM Event Display: Discharge Summary Authored Date: [id number] MARIELOS MIRAMONTES :1995 Age:28 years Sex:Female Visit Date:10/13/2023 Primary Care Physician: Jamila Archer MD Hospital Course The patient is a 28-year-old female with a past medical history of morbid obesity insulin-dependenttype 1 diabetes mellitus hypertension, obstructive sleep apnea, hyperlipidemia, recent C. difficileinfection who presents to the emergency department on October 13, 2023 with a chief complaint of shortness of breath and weakness.?? CT scan done at the time of admission revealed multifocal bilateral pneumonia new patchy groundglass densities and consolidations bilaterally.?? Patient was also found to be hypoxic requiring O2 via mask and was admitted to the hospital for acute hypoxic respiratoryfailure secondary to bilateral multifocal pneumonia.?? Patient was started on IV antibiotics with ce fepime, and azithromycin.?? Patient continued to improve during her hospitalization and was eventually weaned off of oxygen.?? She will be discharged on cefdinir and azithromycin to complete her antibiotic course. ?? Patient also did develop mild diarrhea a few days prior and did this did improve slightly however was still having loose stools and C. difficile testing was positive.?? Patient was started on p.o. vancomycin and her diarrhea has not resolved.?? She will be discharged with a longer course of vancomycin as this is her second recurrence and will also be with a taper. ?? She also had episodes of hyperglycemia and hypoglycemia after having her dose of insulin.?? She mayneed her insulin titrated however likely episodes of hypoglycemia or due to better compliance with diet while in the hospital. ?? She was also found to have elevated LFTs likely related to nonalcoholic steatohepatitis and fatty liver disease which appears to be chronic ongoing issue for her. ?? Patient also had mildly elevated troponin thought to be due to demand ischemia from hypoxia and multifocal pneumonia.?? This trended downwards and there were no EKG changes or chest pain consistent with type I NSTEMI. ?? Due to her multiple comorbidities and morbid obesity patient is at high risk of bounce back to the hospital and has had multiple recent hospitalizations for similar situations.?? For her other chronic medical conditions are all medications were continued.?? At the time of discharge patient was stable to return home.?? Patient to follow-up with her PCP within 1 to 2 weeks. Physical Exam Vitals & Measurements T:??36.4?C ??(Temporal Artery)?? TMIN:??36.2?C ??(Temporal Artery)?? TMAX:??37.1?C ??(Temporal Artery)?? HR:??88??(Peripheral)?? RR:??22?? BP:??129/77?? SpO2:??95%?? WT:??139.75??kg?? Pain Score:??7?? O2 Flow Rate:??2?? O2 Therapy:??Room air?? General: Alert and oriented, [...] intact. Psychiatric: Cooperative, appropriate mood and affect. Procedure/Surgical History ???Due 10/2025 (10/31/2022)???ORIF - Open [...] Plan Discharge planning greater than 30 minutes. 1.??Multifocal pneumonia??J18.9 The patient is a 28-year-old female with a past medical history of morbid obesity insulin-dependenttype 1 diabetes mellitus hypertension, obstructive sleep apnea, hyperlipidemia, recent C. difficileinfection who presents to the emergency department on October 13, 2023 with a chief complaint of shortness of breath and weakness.?? CT scan done at the time of admission revealed multifocal bilateral pneumonia new patchy groundglass densities and consolidations bilaterally.?? Patient was also found to be hypoxic requiring O2 via mask and was admitted to the hospital for acute hypoxic respiratoryfailure secondary to bilateral multifocal pneumonia.?? Patient was started on IV antibiotics with ce fepime, and azithromycin.?? Patient continued to improve during her hospitalization and was eventually weaned off of oxygen.?? She will be discharged on cefdinir and azithromycin to complete her antibiotic course. ?? Patient also did develop mild diarrhea a few days prior and did this did improve slightly however was still having loose stools and C. difficile testing was positive.?? Patient was started on p.o. vancomycin and her diarrhea has not resolved.?? She will be discharged with a longer course of vancomycin as this is her second recurrence and will also be with a taper. ?? She also had episodes of hyperglycemia and hypoglycemia after having her dose of insulin.?? She mayneed her insulin titrated however likely episodes of hypoglycemia or due to better compliance with diet while in the hospital. ?? She was also found to have elevated LFTs likely related to nonalcoholic steatohepatitis and fatty liver disease which appears to be chronic ongoing issue for her. ?? Patient also had mildly elevated troponin thought to be due to demand ischemia from hypoxia and multifocal pneumonia.?? This trended downwards and there were no EKG changes or chest pain consistent with type I NSTEMI. ?? Due to her multiple comorbidities and morbid obesity patient is at high risk of bounce back to the hospital and has had multiple recent hospitalizations for similar situations.?? For her other chronic medical conditions are all medications were continued.?? At the time of discharge patient was stable to return home.?? Patient to follow-up with her PCP within 1 to 2 weeks. ?? 2.??Type 2 myocardial infarction??I21.A1 ?? 3.??Acute hypoxic respiratory failure??J96.01 ?? 4.??Hyperglycemia??R73.9 ?? 5.??Transaminitis??R74.01 ?? 6.??HTN (hypertension)??I10 ?? 7.??HLD (hyperlipidemia)??E78.5 ?? 8.??Hypothyroidism??E03.9 ?? 9.??Morbid obesity??E66.01 Ordered: Mounjaro 2.5 mg/0.5 mL subcutaneous solution, 2.5 mg =, Subcutaneous, every week, rotate injection sites, # 4 EA, 0 Refill(s), Pharmacy: [id number], 149, cm, 10/13/23 16:49:00 EST, Height,133, kg, 10/13/23 16:54:00 EST, Weight Dosing ?? 10.??Type 1 diabetes??E10.9 ?? 11.??Asthma??J45.909 ?? 12.??DEAN (acute kidney injury)??N17.9 ?? 13.??C. difficile diarrhea??A04.72 ?? Orders: azithromycin 250 mg oral tablet, 250 mg = 1 tab, Oral, Daily, # 2 tab, 0 Refill(s), Pharmacy: [id number], 149, cm, 10/13/23 16:49:00 EST, Height, 133, kg, 10/13/23 16:54:00 EST, Weight Dosing Tessalon Perles 100 mg oral capsule, 200 mg = 2 cap, Oral, TID, PRN cough, # 20 cap, 0 Refill(s), Pharmacy: [id number], 149, cm, 10/13/23 16:49:00 EST, Height, 133, kg, 10/13/23 16:54:00 EST, Weight Dosing cefdinir 300 mg oral capsule, 300 mg = 1 cap, Oral, every 12 hr, # 14 cap, 0 Refill(s), Pharmacy: [id number], 149, cm, 10/13/23 16:49:00 EST, Height, 133, kg, 10/13/23 16:54:00 EST, WeightDosing torsemide, 60 mg = 3 tab, Oral, Tab, BID, First Dose: 10/15/23 21:00:00 EST vancomycin 125 mg oral capsule, See Instructions, 1 capsule 4 times daily for 10 additional days then 1 capsule 3 times daily for 5 days then 2 times daily for 5 days then 1 time daily., # 70 cap, 0 Refill(s), Pharmacy: [id number], 149, cm, 10/13/23 16:49:00 EST, Height,... Discharge Activity Restrictions, as tolerated Discharge Diet Instruction, Diabetic Diet Discharge Patient, 10/16/23 9:14:00 EST, Home Independently All Diagnoses This Visit Multifocal pneumonia Type 2 myocardial infarction Acute hypoxic respiratory failure Hyperglycemia Transaminitis HTN (hypertension) HLD (hyperlipidemia) Hypothyroidism Morbid obesity Type 1 diabetes Asthma DEAN (acute kidney injury) C. difficile diarrhea Patient Education Community-Acquired Pneumonia, Adult Follow Up With When Contact Information Jamila Archer MD Within 1 to [address] [place] [address] [place] [address]- Additional Instructions: Medication Reconciliation New Prescription azithromycin [...] hours for 7 Days. Refills: 0. ?? tirzepatide (Mounjaro 2.5 mg/0.5 mL subcutaneous solution)2.5 Milligrams Subcutaneous (under the skin) every week. rotate injection sites. Refills: 0. ?? vancomycin (vancomycin 125 mg oral capsule)1 capsule 4 times daily for 10 additional days then 1 capsule 3 times daily for 5 days then 2 times daily for 5 days then 1 time daily.. Refills: 0. ?? Changed insulin lispro (HumaLOG [...] in hospital and was still hypoglycemic. ?? Unchanged atorvastatin (atorvastatin 40 mg oral [...] months)Use to monitor BS. Refills: 3. ?? [id number] Milligrams Oral (given by mouth) every day. ?? glucagon (Glucagon Emergency Kit for Low Blood Sugar)follow instructions per kit; as needed low blood sugar. ?? [id number] Micrograms Oral (given by mouth) every day. ?? lisinopril (lisinopril 5 mg oral tablet)1 tab Oral (given by mouth) every day. ?? Other Prescription (ONETOUCH VERIO FLEX KIT)1 each by [facility]. (non drug: combo route) route 4 times daily.. ?? Other Prescription (ONETOUCH VERIO MARLENE)Test blood glucose withone new test strip 4 times daily. ?? torsemide (torsemide 20 mg oral tablet)3 tab Oral (given by mouth) 2 times a day. TWICE DAIY.. Refills: 3. Electronically Signed on 10/16/23 09:26 AM Hortensia Nieto MD Patient Care team information Care Team Personnel Name: Jamila Archer MD Position: Physician Member Role: Informed Provider Address: Address: [address] [place] [address] [address] [place], [place] [id number] [place] [address] Name: Shila Krueger Position: Ambulatory - RN/STITCH BONDING MACHINE TENDER HELPER ([facility]) Member Role: Outpatient Psychiatrist Care Team Related Persons Name: EMILIO PATHAK Address: Home [address], [phone] Name: LAUREN JONES Name: ELLIS GRAMAJO Address: Home [address] [place], [phone]
--- OUTSIDE RECORDS SUMMARY | 2024-02-29 19:12 | XMS_ITS | Continuity of Care Document ---
Author Name Unknown Organization [facility] Address [address] [place] [address] Care Team Providers Care Airset Caster Name Role Phone Jamila Archer Primary Care Physician Encounter [facility] [id number] Date(s): 12/10/23 - 12/10/23 [facility] [address] [place] [address] Encounter Diagnosis Obstructive sleep apnea syndrome(Discharge Diagnosis) - 12/06/23 Periodic limb movement disorder(Discharge Diagnosis) - 12/10/23 Obstructive sleep apnea (adult) (pediatric)(Final) - Periodic limb movement disorder(Final) - Discharge Disposition: Home or Self Care Attending Physician: Sully Singleton LICENSED PROSTHETIST Allergies, Adverse Reactions, Alerts Substance Reaction Severity Status morphine Unknown Active oxyCODONE 1 Unknown Active rOPINIRole Severe Active 1repotrs feeling loopy Assessment and Plan Extracted from: Title:Clinic - Office Visit Note Author:Frantz Singleton NP Date:12/10/23 1.??Obstructive sleep apnea syndrome??G47.33 ??HOLLIE with an AHI of 91.9/hr. She had been using BiPAP Imax 25 cm, Luis M 16 cm, PS 6 cm. She has excellent compliance and reduction in AHI. She is still reporting restless sleep and some daytime fatigue though this may have improved slightly after supplemental 02 was added at 3 lpm about a month ago when she was hospitalized with the flu/pneumonia. She never had any follow-up testing. The 02 was added during an acute respiratory illness and it is possible it is not needed any longer. I ordered a titration a year ago and she never had this done. I ordered a BIPAP titration to start at 20/16 cm without 02. TC02 monitoring ordered and I asked to be notified when results avaiable. Will also be looking for PLMS contributing to restless sleep. She says her BiPAP is making a loud whistling noise that persistend when she changed out the parst and is not coming from the humidifier (this is often where a leak occurs. I purt in an order to have [employer] evaluate and repair/replace as needed. She is advised to keep up with the routine maintenance of the machine and to clean/replace parts as needed.??I will see her back in six months. She is asked to call our office for any sleep related questions or concerns. I provided greater than 30 minutes in the care of this patient, more than half the time was spent in ukmg-[id number]-avuh counseling. 2.??Periodic limb movement disorder??G47.61 ??She reports restless sleep and tossing and turning despite HOLLIE being very well controlled. Her titration in 2020 showed an elevated PLMai which may be part of the problem. She tried ropinirole and felt very nauseated and almost blacked out. She has never tried gabapentin and I offered to start this today but she first wanted to have a titration study. This was ordered as above and if she has a lot of PLMS I will again offer gabapentin. Future Appointments Appointment Date:12/18/2023 03:30:00 PM Scheduled Provider:Shila Krueger Location:[facility] Appointment Type:Care Coordination Follow-Up 45 [facility] Future Scheduled Tests Laboratory* Basic Metabolic Panel [...] wheezing, # 8.5 g, 3 Refill(s), Pharmacy: [facility] [address], 149, cm, 11/02/23 8:54:00 EST, Height, 137.5, kg, 10/31/23 23:35:00 EST, Weight Dosing Start Date: 11/07/23 Status: Ordered allopurinol 100 mg oral tablet 100 mg = 1 tab, Oral, Daily, # 90 tab, 0 Refill(s), Pharmacy: [facility] [address], 149, cm, 10/13/23 16:49:00 EST, Height, 137.15, kg, 10/23/23 9:18:00 EST, Weight Dosing Start Date: 10/23/23 Status: Ordered aspirin 81 mg oral capsule 81 mg = 1 cap, Oral, every 24 hr, # 90 cap, 4 Refill(s), Pharmacy: [facility] [address], 149.86, cm, 11/27/23 8:07:00 EDT, Height, 136.08, kg, 11/27/23 8:15:00 EDT, Weight Dosing Start Date: 11/27/23 Status: Ordered atorvastatin 40 mg oral tablet 40 mg = 1 tab, Oral, Daily, # 90 tab, 3 Refill(s), Pharmacy: [facility] [address], 149, cm, 11/02/23 8:54:00 EST, Height, 137.5, kg, 10/31/23 23:35:00 EST, Weight Dosing Start Date: 11/07/23 Status: Ordered B-D UF III SHORT PEN NEED MIS B-D UF III SHORT PEN NEED MIS, Use one new pen needle for each insulin injection 5 to 7 times per day as directed in case of pump malfunction, Supply, See instructions, # 500 EA, 0 Refill(s), Pharmacy: [facility] [address] Start Date: 09/08/22 Status: Ordered cetirizine 10 mg oral tablet 1 tab, Oral, BID, # 60 tab, 0 Refill(s), Pharmacy: [facility], 149, cm, 07/08/23 [...] higher, # 15 mL, 2 Refill(s), Pharmacy: [facility], 149, cm, 11/02/23 8:54:00 EST, [...] sites, # 4 EA, 0 Refill(s), Pharmacy: [facility], 149, cm, 11/02/23 8:54:00 EST, Height, 137.5, kg, 10/31/23 23:35:00 EST, Weight Dosing Start Date: 11/07/23 Status: Ordered Mounjaro 2.5 mg/0.5 mL subcutaneous solution 2.5 mg =, Subcutaneous, every week, rotate injection sites, # 4 EA, 0 Refill(s), Pharmacy: [facility], 149, cm, 10/13/23 16:49:00 EST, Height, 133, kg, 10/13/23 16:54:00 EST, Weight Dosing Start Date: 10/15/23 Status: Ordered ONETOUCH VERIO FLEX KIT ONETOUCH VERIO F[place] KIT, 1 [place] [facility] [place] drug: [...] BID, # 6 cap, 0 Refill(s), Pharmacy: [facility], 149, cm, 11/02/23 8:54:00 EST, Height, 137.5, kg, 10/31/23 23:35:00 EST, Weight Dosing Start Date: 11/02/23 Stop Date: 11/05/23 Status: Ordered Toprol-XL 25 mg oral tablet, extended release 25 mg = 1 tab, Oral, Daily, # 90 tab, 4 Refill(s), Pharmacy: [facility], 149.86, cm, 11/27/23 8:07:00 EDT, Height, 136.08, kg, 11/27/23 8:15:00 EDT, Weight Dosing Start Date: 11/27/23 Status: Ordered torsemide 20 mg oral tablet 3 tab, Oral, BID, TWICE DAIY., # 180 tab, 3 Refill(s), Pharmacy: [facility], 149, cm, 07/08/23 [...] Range]: 1 Peripheral Pulse Rate [60-100 bpm] 104 b pm *HI* (12/10/23 11:24 AM) Blood Pressure [90-140/60-90 mmHg] 140/6 8mmHg (12/10/23 11:24 AM) Mean Arterial Pressure, Cuff [65-140 mmH g] 92 mmHg (12/10/23 11:24 AM) Weight 136.08 kg (12/10/23 11:24 AM) Weight Measured (lbs) 300.005 lb (12/10/23 11:24 AM) Weight Dosing 136.080 kg (12/10/23 11:24 AM) Height 149 cm (12/10/23 11:24 AM) Height/Length Measured (inches) 58.66 in ch (12/10/23 11:24 AM) BSA Measured 2.37 m2 (12/10/23 11:24 AM) Body Mass Index 61.29 kg/m2 (12/10/23 11:24 AM) Social History Social History Type Response Tobacco Never tobacco user T obacco Use:. Sex Female Progress note * Donovan Parmar M: PERFORM Event Display: Progress Note - Physician Authored Date: [id number] Physician Outpatient Note * Sully Singleton LICENSED PROSTHETIST: PERFORM Event Display: Office Clinic Note Physician Authored Date: [id number] DHARA SOLIS :1995 Age:28 years Sex:Female Visit Date:12/10/2023 Primary Care Physician: Jamila Archer MD History of Present Illness Dhara Solis??has a visit for HOLLIE follow-up.? Dhara was last seen by me on 10/26/2022.Nisa has a medical history to include autoimmune thyroiditis, developmental disorder,?? HTN, HLD, DM, obesity, tachycardia, tension headaches and HOLLIE. PSG??12/30/03??(BMI 26), RDI 33/hr, 02 ciro 84%. Repeat PSG 11/20/2014 (BMI 47.66), AHI 91.9/hr, RDI 92.9/hr, REM AHI 134.5/hr, 02 ciro 64%, PLMi 0/hr, EKG NSR. Titration 01/01/15 (BMI 47.06), CPAP 15 cm was not successful in supine REM, BiPAP 18/14cm was successful including supine REM, PLMi 4/hr, PLMai 2.8/hr, BiPAP 19/10/4 cm recommended. Titration 06/07/21 (BMI 56.55), BiPAP was titrated form 14/10-16/12 cm with persistent snoring, arousal index??25/hr, PLMi 32.9/hr, PLMai 12.4/hr,?BiPAP 22/11/6 cm recommended. At her last visit she was using BiPAP 22/10/4 cm with excellent compliance but had been waking verylethargic to the point EMS had to wake her up. Prior to that her filter was clogged and she was notgetting the correct pressure. It had just been changed out by Bernice the previous day. She reported being afraid to go to sleep. I had a titration arranged for that same night but it does not appearit was ever done? I??set her BiPAP to Imax 25 cm, Luis M 16 cm, PS 6 cm. ?? Dhara attempted to have the titration but ended up getting sent to the ED that night.? Dhara tells me she has been using her BiPAP every night.?? She says she has gotten a new BiPAP since and she now has 02 at 3 lpm with her BiPAP. She was sent home with this after she was hospitalized with the flu and pneumonia (about a month ago) and reportedly had hypoxemia despite using BiPAP. She was recently diagnosed with asthma and started on Advair and has albuterol PRN.?? She says she can't sleep without her BiPAP. She uses a FFM and tolerates this well. She is replacing parts as needed.?? She feels the sleep has been better since starting on the supplemental 02 but she still tosses andturns. She is taking an OTC supplement. She has been taking magnesium QHS.?? She says her BiPAP is making a loud whistling noise so I suggested she have [employer] evaluate this.? ESS today 07/03 COMPLIANCE DATA REVIEWED WITH PATIENT: Dates 11/06/23-12/05/23,??Days used?? , average use 9 hours, 17 minutes, 95 th percentile pressure 24.3/18.3 cm,??95 th percentile air leak 15 lpm, AHI 0.2/hr Physical Exam Vitals & Measurements HR:??104??(Peripheral)?? BP:??140/68?? SpO2:??96%?? HT:??149??cm?? WT:??136.08??kg?? BMI:??61.29?? BSA:??2.37?? Clinic Assessment/Plan 1.??Obstructive sleep apnea syndrome??G47.33 ??HOLLIE with an AHI of 91.9/hr. She had been using BiPAP Imax 25 cm, Luis M 16 cm, PS 6 cm. She has excellent compliance and reduction in AHI. She is still reporting restless sleep and some daytime fatigue though this may have improved slightly after supplemental 02 was added at 3 lpm about a month agowhen she was hospitalized with the flu/pneumonia. She never had any follow-up testing. The 02 was added during an acute respiratory illness and it is possible it is not needed any longer. I ordered atitration a year ago and she never had this done. I ordered a BIPAP titration to start at 20/16 cm without 02. TC02 monitoring ordered and I asked to be notified when results avaiable. Will also be looking for PLMS contributing to restless sleep. She says her BiPAP is making a loud whistling noise that persistend when she changed out the parst and is not coming from the humidifier (this is often where a leak occurs. I purt in an order to have [employer] evaluate and repair/replace as needed. She is advised to keep up with the routine maintenance of the machine and to clean/replace parts as needed.??I will see her back in six months. She is asked to call our office for any sleep related questionsor concerns. I provided greater than 30 minutes in the care of this patient, more than half the time was spent in [id number] counseling. 2.??Periodic limb movement disorder??G47.61 ??She reports restless sleep and tossing and turning despite HOLLIE being very well controlled. Her titration in 2020 showed an elevated PLMai which may be part of the problem. She tried ropinirole and felt very nauseated and almost blacked out. She has never tried gabapentin and I offered to start this today but she first wanted to have a titration study. This was ordered as above and if she has a lot of PLMS I will again offer gabapentin. Problem List/Past Medical History Ongoing DEAN (acute [...] day Duration: 3 Days Unchanged Other Prescription ([employer] VERIO FLEX KIT) 1 [place] [facility] [place] (non drug: combo route) route 4 times daily. ?? Unchanged Other Prescription ([employer] VERIO MARLENE) Test blood glucose withone new [...] 2 times a day TWICE ??DAIY. ?? Allergies rOPINIRole morphine oxyCODONE Social History Alcohol [...] pediatric vaccine 1995 Recorded Electronically Signed on 12/10/23 11:53 AM Sully Singleton LICENSED PROSTHETIST Patient Care team information Care Team Personnel Name: Jamila Archer MD Position: Physician Member Role: Informed Provider Address: Address: [address] [place] [address] [address] [place] [place] [address] [place] [address] Name: Shila Krueger Position: Ambulatory - RN/TOASTER ELEMENT REPAIRER ([facility]) Member Role: Dietary Assistant Care Team Related Persons Name: EMILIO PATHAK Address: Home [address] [facility] [facility] [address] [place], [phone] Name: ELLIS GRAMAJO Address: Home [address] [place], [phone]
--- OUTSIDE RECORDS SUMMARY | 2024-02-29 19:12 | XMS_ITS | Continuity of Care Document ---
Author Name Unknown Organization [facility] Address [address] [place] [address] Care Team Providers Care Honing Machine Operator Production Name Role Phone Jamila Archer Primary Care Physician [phone] Encounter [facility] Date(s): 07/07/23 - 07/07/23 [facility] [address] [place] [address] Discharge Disposition: Home or Self Care Attending Physician: Natalie Wade NP Admitting Physician: Natalie Wade AUTOMATION QA LEAD Allergies, Adverse Reactions, Alerts Substance Reaction Severity Status morphine Unknown Active rOPINIRole Severe Active Assessment and Plan Future Appointments Diagnostic Tests Pending * Fecal Bacterial Pathogens by PCR [facility] 07/07/23 * Generic Orderable [facility] 07/07/23 Future Scheduled Tests Laboratory* Basic Metabolic Panel [...] Record ed influenza virus vaccine, inactivated 06/30/15 Gabrile rded influenza virus vaccine, inactivated 06/10/14 Gabriel [...] Recorded 1Result Comment: pt tolerated well Medications amoxicillin 875 mg oral tablet 875 mg = 1 tab, Oral, BID, # 14 tab, 0 Refill(s), Pharmacy: [facility] [address], 149, cm, 03/22/23 10:48:00 EDT, Height/Length Dosing, 129.7, kg, 03/22/23 10:48:00 EDT, Weight Dosing Start Date: 06/29/23 Stop Date: 07/06/23 Status: Ordered atorvastatin 40 mg oral tablet [...] instructions, # 500 EA, 0 Refill(s), Pharmacy: [facility] [address] Start Date: 09/08/22 Status: Ordered cetirizine 10 mg oral tablet 1 tab, Oral, BID, # 60 tab, 0 Refill(s), Pharmacy: [facility] [address], 149, cm, 03/22/23 10:48:00 EDT, Height/Length Dosing, 129.7, kg, 03/22/23 10:48:00 EDT, Weight Dosing Start Date: 07/02/23 Status: Ordered chlorthalidone 25 mg oral tablet 1 tab, Oral, Daily, # 90 tab, 0 Refill(s), Pharmacy: [facility] [address], 149, cm, 03/22/23 10:48:00 EDT, Height/Length Dosing, 129.7, kg, 03/22/23 10:48:00 EDT, Weight Dosing Start Date: 05/15/23 Status: Ordered Dexcom G6 sensors Dexcom G6 sensors, To check BS 4x daily, Supply, See instructions, # 6 EA, 0 Refill(s), Pharmacy: [facility] [id number] Start Date: 11/24/22 Status: Ordered Dexcom Sensors G6, change every 10 days Dexcom Sensors G6, change every 10 days, Use for BS monitoring, Supply, See instructions, # 4 EA, 3Refill(s), Pharmacy: [facility] [id number] Start Date: 01/16/23 Status: Ordered Dexcom Transmitter, change every 3 months Dexcom Transmitter, change every 3 months, Use to monitor BS, Supply, See instructions, # 1 EA, 3 Refill(s), Pharmacy: [facility] [address] Start Date: 04/11/23 Status: Ordered ergocalciferol 1.25 mg (50,000 intl [...] dose., # 90 tab, 3 Refill(s), Pharmacy: [facility] [address], 150, cm, 10/27/22 6:33:00 EST, Height/Length Dosing, 127, kg, 10/27/22 6:33:00 EST, Weight Dosing Start Date: 10/27/22 Status: Ordered lisinopril 5 mg oral tablet 5 mg = 1 tab, Oral, Daily, # 90 tab, 2 Refill(s), Pharmacy: [facility] [address], 149, cm, 03/22/23 10:48:00 EDT, Height/Length Dosing, 129.7, kg, 03/22/23 10:48:00 EDT, Weight Dosing Start Date: 05/01/23 Status: Ordered ONETOUCH VERIO FLEX KIT ONETOUCH VERIO FLEX KIT, 1 each by [facility] [place]. (non drug: combo route) route 4 times daily. Start Date: 03/02/22 Status: Ordered ONETOUCH VERIO MARLENE ONETOUCH VERIO MARLENE, Test blood glucose withone new test strip 4 times daily Start Date: 03/02/22 Status: Ordered senna (sennosides) 3 mg oral tablet, chewable 3 mg = 1 tab, Chewed, BID, PRN as needed for constipation, # 180 tab, 1 Refill(s), Pharmacy: [facility], 149, cm, 03/22/23 10:48:00 EDT, Height/Length Dosing, 129.7, kg, 03/22/23 10:48:00 EDT, Weight Dosing Start Date: 05/01/23 Status: Ordered torsemide 20 mg oral tablet 60 mg = 3 tab, Oral, BID, take 3 tablets to equal 60mg twice daily, # 180 tab, 4 Refill(s), Pharmacy: [facility], 149, cm, 12/31/22 3:07:00 EDT, [...] disorder Confirmed Active Diabetic ketoacidosis Confirmed Active Diarrhea Confirmed Active Erythroderma Confirmed Active Hyperlipidemia Confirmed [...] Otitis externa of both ears Confirmed Active Otitis externa Confirmed Active Right otitis media with effusion [...] 4with adenoidectomy Results Laboratory List Name Date Giardia/Crypto Ag 07/07/23 Occult Blood Diagnostic, Feces 07/07/23 Most recent to oldest [Reference Range]: 1 Occult Bld Stl I Negative (07/07/23 1:23 PM) Occult Bld Stl ll N/A (07/07/23 1:23 PM) Occult Bld Stl lll N/A (07/07/23 1:23 PM) Giardia Ag sent to [facility] *NA* (07/07/23 1:23 PM) Cryptospor Ag sent to [facility] *NA* (07/07/23 1:23 PM) Social History Social History Type Response Tobacco Never tobacco user T obacco Use:. Sex Female Patient Care team information Care Team Personnel Name: Jamila Archer MD Position: Physician Member Role: Informed Provider Address: Address: [facility] [address] Name: Shila Krueger Position: Ambulatory - RN/PIE CRIMPING MACHINE OPERATOR ([facility]) Member Role: Customer Care Associate Care Team Related Persons Name: EMILIO PATHAK Address: Home [address] [facility] [address] [facility] [phone] Name: ELLIS GRAMAJO Address: Home [address] [place], [id number]
--- OUTSIDE RECORDS SUMMARY | 2024-02-29 19:12 | XMS_ITS | Continuity of Care Document ---
Author Name Unknown Organization [facility] Address [address] [place] [address] Care Team Providers Care Linux Kernel Engineer Name Role Phone Jamila Archer Primary Care Physician [phone] Encounter [facility] Date(s): 10/26/22 - 10/26/[address] [address] Discharge Disposition: Home or Self Care Attending Physician: Jamila Archer MD Admitting Physician: Jamila Archer MD Allergies, Adverse Reactions, [...] 07/04/12 Gabriel rded influenza virus vaccine, inactivated 10/4/11 Gabriel rded influenza virus vaccine, inactivated 08/26/10 [...] hr, # 14 tab, 0 Refill(s), Pharmacy: [facility] [...] instructions, # 500 EA, 0 Refill(s), Pharmacy: [facility] Start Date: 09/08/22 Status: Ordered clotrimazole 1% topical cream 1 trenton, Topical, BID, # 300 g, 0 Refill(s), Pharmacy: [facility], 150, cm, 08/09/22 1:15:00 EST, Height/Length Dosing, 127.01, kg, 08/09/22 1:15:00 EST, Weight Dosing Start Date: 08/22/22 Status: Ordered Diflucan 150 mg oral tablet 150 mg = 1 tab, Oral, Once, May repeat second tab in 2 days if needed., # 2 tab, 0 Refill(s), Pharmacy: [facility] and [...] Daily, # 90 tab, 0 Refill(s), Pharmacy: [facility] and [...] KIT, 1 each by [facility] [place]. (non drug: combo route) route 4 times daily. Start Date: 03/02/22 Status: Ordered ONETOUCH VERIO MARLENE ONETOUCH VERIO MARLENE, Test blood glucose withone new test strip 4 times daily Start Date: 03/02/22 Status: Ordered Silvadene 1% topical cream 1 trenton, Topical, Daily, # 50 g, 0 Refill(s), Pharmacy: [facility], 149.86, cm, 07/29/22 17:57:00 EST, Height/Length Dosing, 127.07, kg, 07/29/22 17:57:00 EST, Weight Dosing Start Date: 07/29/22 Status: Ordered torsemide 20 mg oral tablet 1 tab, Oral, TID, PRN IF NEEDED, # 90 tab, 1 Refill(s), Pharmacy: [facility] [...] Daily, # 90 tab, 3 Refill(s), Pharmacy: [facility], 150, cm, 03/14/22 6:18:00 [...] 3with adenoidectomy Results Laboratory List Name Date Automated Diff 10/26/22 CBC w/ Diff 10/26/22 Comprehensive Metabolic Panel (CMP) 10/26 Free T4 10/26/22 Hemoglobin A1c 10/26/22 Lipid Panel 10/26/22 Thyroid Stimulating Hormone (TSH) 3 Most recent to oldest [Reference Range]: 1 WBC [5.0-10.0 x10^3/mcL] 8.4 x10^3/mcL (10/26/22 10:40 AM) RBC [4.1-5.3 x10^6/mcL] 4.6 x10^6/mcL (10/26/22 10:40 AM) Neutro Auto [40.0-75.0 %] 61.0 % (10/26/22 10:40 AM) Lymph Auto [20.0-50.0 %] 32.3 % (10/26/22 10:40 AM) Holmes Auto [2.0-15.0 %] 3.4 % (10/26/22 10:40 AM) Basophil Auto [0.0-1.0 %] 0.5 % (10/26/22 10:40 AM) BUN [7-18 mg/dL] 32 mg/dL *HI* (10/26/22 10:40 AM) Cholesterol Total [50-200 mg/dL] 502 mg/ dL *HI* (10/26/22 10:40 AM) LDL [0-130 mg/dL] See Comment mg/dL 1 *NA* (10/26/22 10:40 AM) Glucose Level [74-106 mg/dL] 55 mg/dL *LOW* (10/26/22 10:40 AM) Potassium Level [3.5-5.1 mmol/L] 3.9 mmo l/L (10/26/22 10:40 AM) MCV [80.0-96.0] 93.0 (10/26/22 10:40 AM) HDL [40-60 mg/dL] 41 mg/dL (10/26/22 10:40 AM) T4 Free [0.76-1.46 ng/dL] 0.78 ng/dL (10/26/22 10:40 AM) AST [15-37 unit/L] 129 unit/L *HI* (10/26/22 10:40 AM) ALT [14-59 unit/L] 143 unit/L *HI* (10/26/22 10:40 AM) MCHC [31.0-35.0 g/dL] 32.2 g/dL (10/26/22 10:40 AM) Sodium Level [136-145 mmol/L] 137 mmol/L (10/26/22 10:40 AM) Hct [37.0-47.0 %] 42.8 % (10/26/22 10:40 AM) Triglycerides [0-150 mg/dL] 742 mg/dL *HI* (10/26/22 10:40 AM) Calcium Level [8.5-10.1 mg/dL] 9.7 mg/dL (10/26/22 10:40 AM) Albumin Level [3.4-5.0 g/dL] 4.1 g/dL (10/26/22 10:40 AM) Protein Total [6.4-8.2 g/dL] 8.8 g/dL *HI* (10/26/22 10:40 AM) MCH [26.0-32.0 pg] 30.0 pg (10/26/22 10:40 AM) Neutro Absolute 5.1 x10^3/mcL *NA* (10/26/22 10:40 AM) Bilirubin Total [0.2-1.0 mg/dL] 0.4 mg/d L (10/26/22 10:40 AM) Hgb [12.0-16.0 g/dL] 13.8 g/dL (10/26/22 10:40 AM) Alk Phos [46-146 unit/L] 299 unit/L *HI* (10/26/22 10:40 AM) Platelets [130-450 x10^3/mcL] 355 x10^3/ mcL (10/26/22 10:40 AM) CO2 [21-32 mmol/L] 31 mmol/L (10/26/22 10:40 AM) TSH [0.358-3.740 mcIntlUnit/mL] 6.932 mc IntlUnit/mL *HI* (10/26/22 10:40 AM) eGFR Non-AA [>=60] 77 (10/26/22 10:40 AM) eGFR AA [>=60] 77 (10/26/22 10:40 AM) Hemoglobin A1c [4.0-6.0 %] 9.2 % *HI* (10/26/22 10:40 AM) Chloride Level [98-107 mmol/L] 96 mmol/L *LOW* (10/26/22 10:40 AM) RDW-CV [11.7-17.0 %] 14.6 % (10/26/22 10:40 AM) Imm Gran Auto [0.0-0.9 %] 0.4 % (10/26/22 10:40 AM) Creatinine Level [0.55-1.02 mg/dL] 1.03 mg/dL *HI* (10/26/22 10:40 AM) Eos, Auto [1.0-6.0 %] 2.4 % (10/26/22 10:40 AM) 1Result Comment: LDL calculation is INVALID when Triglyceride is greater than 400. Social History Social History Type Response Tobacco Never tobacco user T obacco Use:. Sex Female Patient Care team information Care Team Personnel Name: Jamila Archer MD Position: Physician Member Role: Informed Provider Address: Address: [place] [address]- Care Team Related Persons Name: EMILIO PATHAK Address: Home [address] [facility] [address] [place], [phone] Name: ELLIS RGAMAJO Address: Home [address] [place], [phone]
--- OUTSIDE RECORDS SUMMARY | 2024-02-29 19:12 | XMS_ITS | Continuity of Care Document ---
Author Name Unknown Organization [facility] Address [address] [place] [address] Care Team Providers Care Client Technical Specialist Name Role Phone Jamila Archer Primary Care Physician [phone] Encounter [facility] [id number] Date(s): 11/19/23 - 11/19/[address] [address] Encounter Diagnosis Chest pain(Discharge Diagnosis) - 11/19/23 Discharge Disposition: Home or Self Care Attending Physician: Jaida Lamb NP Admitting Physician: Jaida Lamb NP Referring Physician: Jaida Lamb DENTAL ASSISTING INSTRUCTOR Allergies, Adverse Reactions, Alerts Substance Reaction Severity Status morphine Unknown Active oxyCODONE 1 Unknown Active rOPINIRole Severe Active 1repotrs feeling loopy Assessment and Plan Future Appointments Appointment Date:11/26/2023 03:30:00 PM Scheduled Provider:Shila Krueger Location:[facility] [place] Appointment Type:Care Coordination Follow-Up 60 ([facility]) Future [...] wheezing, # 8.5 g, 3 Refill(s), Pharmacy: [id number], 149, cm, 11/02/23 8:54:00 EST, Height, 137.5, kg, 10/31/23 23:35:00 EST, Weight Dosing Start Date: 11/07/23 Status: Ordered allopurinol 100 mg oral tablet 100 mg = 1 tab, Oral, Daily, # 90 tab, 0 Refill(s), Pharmacy: [facility], 149, cm, 10/13/23 16:49:00 EST, Height, 137.15, kg, 10/23/23 9:18:00 EST, Weight Dosing Start Date: 10/23/23 Status: Ordered atorvastatin 40 mg oral tablet 40 mg = 1 tab, Oral, Daily, # 90 tab, 3 Refill(s), Pharmacy: [facility], 149, cm, 11/02/23 8:54:00 EST, Height, [...] instructions, # 500 EA, 0 Refill(s), Pharmacy: [facility] Start Date: 09/08/22 Status: Ordered cetirizine 10 mg oral tablet 1 tab, Oral, BID, # 60 tab, 0 Refill(s), Pharmacy: [facility], 149, cm, 07/08/23 18:54:00 EDT, Height/Length [...] higher, # 15 mL, 2 Refill(s), Pharmacy: [facility], 149, cm, 11/02/23 8:54:00 [...] sites, # 4 EA, 0 Refill(s), Pharmacy: [facility], 149, cm, 11/02/23 8:54:00 EST, Height, 137.5, kg, 10/31/23 23:35:00 EST, Weight Dosing Start Date: 11/07/23 Status: Ordered Mounjaro 2.5 mg/0.5 mL subcutaneous solution 2.5 mg =, Subcutaneous, every week, rotate injection sites, # 4 EA, 0 Refill(s), Pharmacy: [facility], 149, cm, 10/13/23 16:49:00 EST, Height, 133, kg, 10/13/23 16:54:00 EST, Weight Dosing Start Date: 10/15/23 Status: Ordered ONETOUCH VERIO FLEX KIT ONETOUCH VERIO FLEX KIT, 1 each by [facility] (non drug: combo route) route 4 times [...] BID, # 6 cap, 0 Refill(s), Pharmacy: [facility], 149, cm, 11/02/23 8:54:00 EST, Height, 137.5, kg, 10/31/23 23:35:00 EST, Weight Dosing Start Date: 11/02/23 Stop Date: 11/05/23 Status: Ordered torsemide 20 mg oral tablet 3 tab, Oral, BID, TWICE DAIY., # 180 tab, 3 Refill(s), Pharmacy: [facility], 149, cm, 07/08/23 18:54:00 [...] Physician Member Role: Informed Provider Address: Address: [address] [place] [address] [place] [place] [id number] [place] [address] Name: Shila Krueger Position: Ambulatory - RN/MAT SEWER ([facility]) Member Role: Roller Care Team Related Persons Name: EMILIO PATHAK Address: Home [address] [facility] [place] [id number] Name: ELLIS GRAMAJO Address: Home [address] [place], [phone]
--- OUTSIDE RECORDS SUMMARY | 2024-02-29 19:12 | XMS_ITS | Continuity of Care Document ---
Author Name Unknown Organization [facility] Address [address] [place] [address] Care Team Providers Care Political Science Professor Name Role Phone Jamila Archer Primary Care Physician Encounter [facility] Date(s): 12/18/22 - 12/18/[address] [address] Discharge Disposition: Home or Self Care Attending Physician: Natalie Wade NP Admitting Physician: Natalie Wade NP Referring Physician: Natalie Wade DICTAPHONE OPERATOR Allergies, Adverse Reactions, Alerts Substance Reaction Severity [...] 500 EA, 0 Refill(s), Pharmacy: [facility] Start Date: 09/08/22 Status: Ordered cephalexin 500 mg oral capsule TAKE 1 CAPSULE BY MOUTH 4 TIMES DAILY Start Date: 12/14/22 Status: Ordered Dexcom G6 sensors Dexcom G6 sensors, To check BS 4x daily, Supply, See instructions, # 6 EA, 0 Refill(s), Pharmacy: [facility] Start Date: 11/24/22 Status: Ordered Diflucan 150 mg oral tablet 150 mg = 1 tab, Oral, Once, Can repeat in 3 days if symptoms persist, # 2 tab, 0 Refill(s), Pharmacy: [facility], 150, cm, 11/18/22 19:16:00 EST, Height/Length Dosing, 127, kg, 11/18/22 19:16:00 EST, Weight Dosing Start Date: 11/21/22 Status: Ordered ergocalciferol 1.25 mg (50,000 intl units) oral capsule 50,000 IntlUnit = 1 cap, Oral, every week Start Date: 03/02/22 Status: Ordered fenofibrate 30 mg oral capsule 30 mg = 1 cap, Oral, Daily, # 90 cap, 3 Refill(s), Pharmacy: [facility], 150, cm, 10/27/22 6:33:00 EST, Height/Length Dosing, 127, kg, 10/27/22 6:33:00 EST, Weight Dosing Start Date: 10/27/22 Status: Ordered fenofibrate 40 mg oral tablet 40 mg = 1 tab, Oral, Daily, # 30 tab, 0 Refill(s), Pharmacy: [facility], 150, cm, 10/27/22 6:33:00 EST, Height/Length Dosing, 127, kg, 10/27/22 6:33:00 EST, Weight Dosing Start Date: 10/27/22 Status: Ordered FUTURO COMPRESSION SOCKS FUTURO COMPRESSION SOCKS, FUTURO COMPRESSION SOCKS, Supply, See instructions, # 1 EA, 0 Refill(s), [id number] Start Date: 12/18/22 Status: Ordered Glucagon Emergency [...] dose., # 90 tab, 3 Refill(s), Pharmacy: [facility], 150, cm, 10/27/22 6:33:00 EST, Height/Length D... Start Date: 10/27/22 Status: Ordered levothyroxine 125 mcg (0.125 mg) oral tablet 125 mcg = 1 tab, Oral, Daily, Take one tablet by mouth with water a half hour before eating or taking any other medication. Take with 100 mcg dose., # 90 tab, 3 Refill(s), Pharmacy: [facility], 150, cm, 10/27/22 6:33:00 EST, Height/Length D... Start Date: 10/27/22 Status: Ordered lisinopril 10 mg oral tablet 10 mg = 1 tab, Oral, Daily, for 90 days- dose change 10/20/2021, # 90 tab, 3 Refill(s), Pharmacy: [facility], 150, cm, 08/09/22 [...] NEEDED, # 90 tab, 1 Refill(s), Pharmacy: [facility], 150, cm, 10/27/22 6:33:00 EST, Height/Length Dosing, 127, kg, 10/27/22 6:33:00 EST, Weight Dosing Start Date: 11/13/22 Status: Ordered triamcinolone 0.1% topical cream 1 [place], Topical, BID, # 60 g, 0 Refill(s), Pharmacy: [facility], 150, cm, 11/18/22 19:16:00 EST, Height/Length Dosing, 127, kg, 11/18/22 19:16:00 EST, Weight Dosing Start Date: 12/18/22 Stop Date: 12/28/22 Status: Ordered Trulicity Pen 1.5 mg/0.5 mL subcutaneous solution every week Start Date: 03/02/22 Status: Ordered Vitamin C 500 mg oral tablet 500 mg = 1 tab, Oral, Daily, # 30 tab, 0 Refill(s), other reason (Rx) Start Date: 03/24/22 Status: Ordered ZyrTEC-D 5 mg-120 mg oral tablet, extended release 1 tab, Oral, every 24 hr, # 30 tab, 0 Refill(s), Pharmacy: [facility], 150, cm, :18:00 EDT, [...] 4with adenoidectomy Results Laboratory List Name Date C-Reactive Protein High Sensitivity (CRP High Sensitivity (CV Risk)) 12/18/22 Comprehensive Metabolic Panel (CMP) 12/18 Most recent to oldest [Reference Range]: 1 BUN [7-18 mg/dL] 23 mg/dL *HI* (12/18/22 9:43 AM) Glucose Level [74-106 mg/dL] 147 mg/dL *HI* (12/18/22 9:43 AM) Potassium Level [3.5-5.1 mmol/L] 4.3 mmo l/L (12/18/22 9:43 AM) AST [15-37 unit/L] 183 unit/L *HI* (12/18/22 9:43 AM) ALT [14-59 unit/L] 163 unit/L *HI* (12/18/22 9:43 AM) Sodium Level [136-145 mmol/L] 139 mmol/L (12/18/22 9:43 AM) Calcium Level [8.5-10.1 mg/dL] 9.6 mg/dL (12/18/22 9:43 AM) Albumin Level [3.4-5.0 g/dL] 3.8 g/dL (12/18/22 9:43 AM) Protein Total [6.4-8.2 g/dL] 8.4 g/dL *HI* (12/18/22 9:43 AM) Bilirubin Total [0.2-1.0 mg/dL] 0.6 mg/d L (12/18/22 9:43 AM) Alk Phos [46-146 unit/L] 259 unit/L *HI* (12/18/22 9:43 AM) CO2 [21-32 mmol/L] 31 mmol/L (12/18/22 9:43 AM) eGFR Non-AA [>=60] 99 (12/18/22 9:43 AM) eGFR AA [>=60] 99 (12/18/22 9:43 AM) Chloride Level [98-107 mmol/L] 99 mmol/L (12/18/22 9:43 AM) CRP High Sens [0.00-3.00 mg/L] 18.77 mg/ L *HI* (12/18/22 9:43 AM) Creatinine Level [0.55-1.02 mg/dL] 0.84 mg/dL (12/18/22 9:43 AM) Social History Social History Type Response Tobacco Never tobacco user T obacco Use:. Sex Female Patient Care team information Care Team Personnel Name: Jamila Archer MD Position: Physician Member Role: Informed Provider Address: Address: [facility] [place], [place] [id number] [place] [address] Name: Shila Krueger Position: Ambulatory - RN/SOURCING ENGINEER ([facility]) Member Role: Xerox Machine Operator Care Team Related Persons Name: EMILIO PATHAK Address: [address] [facility] [phone] Name: ELLIS GRAMAJO Address: Home [address] [place], [phone]
[2024-03-03 09:59] LABS: IgA 194 mg/dL (85-499); IgG 535 mg/dL (610-1616); IgM 129 mg/dL (35-242)
== END 2024-02-28 19:08 | disposition home or self-care (01) ==
LOC: LBN 19:07
PROVIDERS: PCP Family Medicine; Visit Provider Physician Assistant Surgical
DX: J18.9 Pneumonia, unspecified organism (principal)
CPT/HCPCS: 82784; 85025

== ENCOUNTER 2024-04-03 13:57 | Outpatient (CLI) | payer MEDICAID, SELFPAY ==
--- NOTE | 2024-04-03 15:48 | W.PFT ---
Date of service: 04/03/24 Time of Service: 14:00 Pulmonary Function Test Result Requesting Provider Reshma Edwards Indications: OLMEDO Impression Spirometry shows normal FEV1/VC and 93%. Severe decrease in FEV1 45% FVC 42% demonstrating significantly restriction Severe decrease in lung volumes and severely increased RV/TLC at 300% suggesting severe air trapping. Severe decrease in diffusion. Flow-volume curve suggests restriction. Clinical Correlation therefore is recommended.
[2024-04-03] MEDS: Levalbuterol HFA 15 GM INH 4 PUFF IH (16:27)
[2024-04-03] MEDS: Inhaler, Assist Device 1 EACH MC (16:28)
== END 2024-04-03 13:58 | disposition home or self-care (01) ==
PROVIDERS: PCP Family Medicine; Visit Provider Physician Assistant Surgical
DX: R06.09 Other forms of dyspnea (principal); R94.2 Abnormal results of pulmonary function studies
CPT/HCPCS: 00123; 94060; 94726; 94729

== ENCOUNTER 2024-04-03 17:07 | Outpatient (REF) | payer MEDICAID, SELFPAY ==
[2024-04-03 18:03] LABS: ESR 78 mm/hr (0-20)
[2024-04-03 18:12] LABS: C-Reactive Protein 2.27 mg/dL (<or=0.5)
[2024-04-07 10:24] LABS: C3 Complement 305 mg/dL (81-157); C4 Complement 41 mg/dL (13-39)
[2024-04-07 11:47] LABS: dsDNA Ab, IgG <22.0 IU/mL (<27.0)
[2024-04-07 13:24] LABS: ANA Interpretation Negative (Negative)
== END 2024-04-03 17:08 | disposition home or self-care (01) ==
LOC: LBN 17:07
PROVIDERS: PCP Family Medicine; Visit Provider Physician Assistant Surgical
DX: J45.909 Unspecified asthma, uncomplicated (principal); R93.89 Abnormal findings on diagnostic imaging of other specified body structures; M35.9 Systemic involvement of connective tissue, unspecified; R76.8 Other specified abnormal immunological findings in serum
CPT/HCPCS: 82533; 85652; 82784; 82787; 86038; 86140; 86160; 86225